=== PATIENT | male | born 1960 | race Caucasian/White ===

== ENCOUNTER → 2021-09-17 15:08 | Outpatient (BNVA) | payer OTHER, SELFPAY | PROVIDERS: PCP Internal Medicine; Visit Provider Surgery Vascular Surgery | DX: I73.9 Peripheral vascular disease, unspecified (principal); I83.12 Varicose veins of left lower extremity with inflammation; E66.01 Morbid (severe) obesity due to excess calories; Z68.37 Body mass index [BMI] 37.0-37.9, adult | CPT/HCPCS: 99202 ==

== ENCOUNTER 2021-10-09 11:56 | Outpatient (REF) | payer OTHER, SELFPAY ==
--- NOTE | ~2021-10-09 | US_ITS ---
EXAMINATION: NONINVASIVE ASSESSMENT OF THE ARTERIES OF BOTH LOWER EXTREMITIES WITH ANKLE PRESSURE MEASUREMENTS, ANKLE-BRACHIAL INDICES, PVR MEASUREMENTS AND BILATERAL LOWER EXTREMITY DUPLEX. CLINICAL INFORMATION: Peripheral vascular disease. TECHNIQUE: Ankle pressure measurements, ankle-brachial indices and PVR tracings were obtained of the lower extremity arterial system bilaterally. In addition, duplex Doppler techniques with wave form analysis and measurement of velocities in the common femoral, profunda femoral, superficial femoral, popliteal and tibial arteries was performed. The study was performed only at rest. COMPARISON: None FINDINGS: NONINVASIVE ASSESSMENT OF THE ARTERIES OF BOTH LOWER EXTREMITIES WITH ABIs: RIGHT LEG: Right ankle-brachial index: 1.02 PVR (ankle): Dampened LEFT LEG: Ankle-brachial index: 1.11 PVR (ankle): Dampened BILATERAL LOWER EXTREMITY DUPLEX ULTRASOUND: RIGHT LEG: Common femoral artery: 82.5 cm/s, Diastolic flow reversal: Yes Profunda femoris artery: 54.2 cm/s, Diastolic flow reversal: Yes Superficial femoral artery (proximal): 71.5 cm/s, Diastolic flow reversal: Yes Superficial femoral artery (mid): 80.3 cm/s, Diastolic flow reversal: Yes Superficial femoral artery (distal): 75.6 cm/s, Diastolic flow reversal: Yes Popliteal artery: 72.1 cm/s, Diastolic flow reversal: Yes Posterior tibial artery: 64.5 cm/s, Diastolic flow reversal: No LEFT LEG: Common femoral artery: 61.7 cm/s, Diastolic flow reversal: Yes Profunda femoris artery: 44.0 cm/s, Diastolic flow reversal: Yes Superficial femoral artery (proximal): 76.2 cm/s, Diastolic flow reversal: Yes Superficial femoral artery (mid): 88.0 cm/s, Diastolic flow reversal: Yes Superficial femoral artery (distal): 59.7 cm/s, Diastolic flow reversal: Yes Popliteal artery: 67.6 cm/s, Diastolic flow reversal: Yes Posterior tibial artery: 83.3 cm/s, Diastolic flow reversal: No US/US arterial duplex LE BI IMPRESSION: Right Leg: SIDNEY 1.02. No evidence of hemodynamically significant arterial disease. Left Leg: SIDNEY 1.11. No evidence of hemodynamically significant arterial disease. SIDNEY Reference: - >0.97-1.25 = normal - no significant arterial disease - 0.75-0.96 = mild peripheral arterial disease - 0.5-0.74 = moderate peripheral arterial disease - <0.50 = severe peripheral arterial disease
== END 2021-10-09 11:57 | disposition home or self-care (01) ==
LOC: HO.US 11:56
PROVIDERS: PCP Internal Medicine; Visit Provider Surgery Vascular Surgery
DX: I73.9 Peripheral vascular disease, unspecified (principal)
CPT/HCPCS: 93923; 93925

== ENCOUNTER 2021-10-15 12:34 | Outpatient (REF) | payer OTHER, SELFPAY ==
--- NOTE | ~2021-10-15 | US_ITS ---
EXAMINATION: RIGHT AND LEFT LOWER EXTREMITY VENOUS ULTRASOUND (REFLUX EXAM) CLINICAL INDICATION: Varicose veins of the left lower extremity with inflammation. COMPARISON: None. TECHNIQUE: Color flow triplex imaging and compression Doppler was performed to evaluate both the deep and the superficial systems bilaterally. To evaluate the superficial system, the examination was performed in the upright position. Color-flow Doppler ultrasound and compression ultrasound were utilized. In addition, maneuvers were utilized to demonstrate reflux. FINDINGS: 1. DEEP VENOUS ULTRASOUND OF THE RIGHT LOWER EXTREMITY: Respiratory variation, normal compression and augmented flow are noted in the right common femoral vein as well as the right popliteal vein and there is no evidence of deep venous thrombosis at these locations. There is reflux in the deep system in popliteal vein of 1.7 seconds. There is no evidence of a popliteal fossa cyst. No popliteal artery aneurysm identified. 2. SUPERFICIAL ULTRASOUND WITH DOPPLER OF RIGHT LOWER EXTREMITY: The right great saphenous vein at the saphenofemoral junction measures 9 mm, at the midthigh 5 mm, ipdfc-ryh-qcpc 7 mm, vrblr-qrq-itmg 6 mm, at midcalf 4 mm and at the ankle measures 4 mm. There is reflux present within the proximal thigh with insufficiency time of 1.6 seconds and in the mid thigh with reflux time of approximately 1.7 seconds The right small saphenous vein measures 2 mm and shows no reflux. 3. DEEP VENOUS ULTRASOUND OF THE LEFT LOWER EXTREMITY: Respiratory variation, normal compression and augmented flow are noted in the left common femoral vein as well as the left popliteal vein and there is no evidence of deep venous thrombosis at these locations. There is no evidence of reflux in the deep system in either the common femoral vein or the popliteal vein. There is no evidence of a popliteal fossa cyst or popliteal artery aneurysm. 4. SUPERFICIAL ULTRASOUND WITH DOPPLER OF LEFT LOWER EXTREMITY: Left great saphenous vein at the saphenofemoral junction measures 7 mm, at the midthigh 5 mm, psmlc-ats-mqqp 6 mm, dhyda-nab-pkgh 5 mm, at midcalf 3 mm and at the ankle measures 3 mm. There is no reflux demonstrated in the left great saphenous vein. The left small saphenous vein measures 1 mm and shows no reflux. US/US venous duplex LE BI IMPRESSION: 1. Right lower extremity popliteal vein reflux of 1.7 seconds. Otherwise no reflux seen within the deep system of either leg. 2. No evidence of saphenofemoral junction reflux in either lower extremity. 3. Reflux within the right greater saphenous vein in the proximal thigh and mid thigh up to 1.7 seconds in duration.
== END 2021-10-15 12:35 | disposition home or self-care (01) ==
LOC: HO.US 12:34
PROVIDERS: Visit Provider Surgery Vascular Surgery
DX: I83.12 Varicose veins of left lower extremity with inflammation (principal)
CPT/HCPCS: 93970

== ENCOUNTER → 2021-10-31 15:23 | Outpatient (BNVA) | payer OTHER, SELFPAY | PROVIDERS: PCP Internal Medicine; Visit Provider Surgery Vascular Surgery | DX: I83.11 Varicose veins of right lower extremity with inflammation (principal); I73.9 Peripheral vascular disease, unspecified | CPT/HCPCS: 99212 ==

== ENCOUNTER → 2021-11-08 08:13 | Outpatient (BNVA) | payer OTHER, SELFPAY | PROVIDERS: PCP Internal Medicine; Visit Provider Surgery Vascular Surgery | DX: M79.604 Pain in right leg (principal); I83.11 Varicose veins of right lower extremity with inflammation | CPT/HCPCS: 36482 ==

== ENCOUNTER 2021-11-11 15:14 | Outpatient (REF) | payer OTHER, SELFPAY ==
--- NOTE | ~2021-11-11 | US_ITS ---
EXAMINATION: US VENOUS ULTRASOUND WITH DOPPLER LOWER EXTREMITY, RIGHT CLINICAL INFORMATION: Right leg pain and swelling. Status post VenaSeal. COMPARISON: Ultrasound venous bilateral lower extremity duplex/reflux exam 10/15/2021 TECHNIQUE: Limited venous ultrasound was performed through the right lower extremity in the vicinity of the groin and proximal thigh. FINDINGS: The right common femoral vein is patent. The proximal greater saphenous vein 2.9 cm from the junction is thrombosed with no flow seen status post VenaSeal procedure. US/US venous duplex LE RT IMPRESSION: Status post VenaSeal procedure, there is thrombus in the right greater saphenous vein approximately 2.9 cm from the common femoral venous junction.
== END 2021-11-11 15:15 | disposition home or self-care (01) ==
LOC: HO.US 15:14
PROVIDERS: Visit Provider Surgery Vascular Surgery
DX: M79.604 Pain in right leg (principal)
CPT/HCPCS: 93971

== ENCOUNTER → 2021-11-21 15:38 | Outpatient (BNVA) | payer OTHER, SELFPAY | PROVIDERS: PCP Internal Medicine; Visit Provider Surgery Vascular Surgery | DX: I83.11 Varicose veins of right lower extremity with inflammation (principal) | CPT/HCPCS: 99212 ==

== ENCOUNTER 2023-12-21 14:56 | Outpatient (REF) | payer MEDICARE, SELFPAY ==
[2023-12-21 16:16] LABS: MANUAL DIFF FLAG NO
[2023-12-21 17:16] LABS: Basophils Absolute Auto 0.1 X10*3/uL (0.0-0.2); Basophils Percent Auto 0.7 % (0-2); Eosinophils Absolute Auto 0.1 X10*3/uL (0.0-0.4); Eosinophils Percent Auto 1.5 % (0-4); Hematocrit 45.3 % (42.0-52.0); Hemoglobin 15.6 g/dl (14.0-18.0); Imm Gran Abs Auto 0.02 X10*3/uL (0.00-0.03); Imm Gran Pct Auto 0.3 % (0.0-0.4); Lymphocytes Absolute Auto 3.8 X10*3/uL (1.2-4.9); Lymphocytes Percent Auto 51.1 % (20-40); Mean Corpuscular HGB Conc 34.4 g/dl (31.0-36.0); Mean Corpuscular Hemoglobin 30.4 pg (27.0-33.0); Mean Corpuscular Volume 88.3 fL (80.0-98.0); Mean Platelet Volume 10.6 fL (9.4-12.4); Monocytes Absolute Auto 0.4 X10*3/uL (0.1-1.2); Monocytes Percent Auto 4.9 % (2-11); Neutrophils Absolute Auto 3.1 x10*3/uL (2.0-8.3); Neutrophils Percent Auto 41.5 % (45-73); Platelet Count 171 X10*3/uL (160-400); Red Blood Count 5.13 X10*6/uL (4.60-5.80); Red Cell Distribution Width 12.3 % (11.0-16.0); White Blood Count 7.5 X10*3/uL (4.8-10.8)
[2023-12-21 17:40] LABS: Alanine Aminotransferase 15 U/L (0-40); Albumin Level 4.1 g/dL (3.5-5.0); Alkaline Phosphatase 83 U/L (39-117); Anion Gap 12 (12-20); Aspartate Amino Transferase 16 U/L (5-37); Bilirubin Direct 0.1 mg/dL (0.0-0.5); Bilirubin Total 0.4 mg/dL (0.0-1.0); Blood Urea Nitrogen 17 mg/dL (9-16); Calcium 9.3 mg/dL (8.4-10.2); Carbon Dioxide 27 mmol/L (22-29); Chloride 106 mmol/L (96-108); Estimated Glomerular Filt Rate > 60; Glucose Random 100 mg/dL (60-115); Potassium 4.5 mmol/L (3.3-5.1); Sodium 140 mmol/L (135-145); Total Protein 7.3 g/dL (6.5-8.0)
[2023-12-21 18:17] LABS: Appearance Urine Clear; Color Urine Yellow; Glucose Urine UA Negative (Negative); Leukocyte Esterase Urine Trace (Negative); Nitrite Urine Negative (Negative); UMIC TRIGGER UA YES; Urine Blood Negative (Negative); Urine Ketones Negative (Negative); Urine Protein Negative (Neg-Trace)
[2023-12-21 18:27] LABS: Bacteria Urine None Seen (None Seen); Hyaline Casts Urine 0-2 /LPF (0-2); RBC Urine 0-2 /HPF (0-2)
[2023-12-21 20:14] LABS: Erythrocyte Sedimentation Rate 5 MM/HR (0-15)
[2023-12-22 05:38] LABS: HBS Num1 > 1000.00 mIU/mL (0-7.99); HBc Num1 5.07 S/CO (0.00-0.79); HBsAGNum1 0.43 S/CO (0.00-0.99); HIV AB/AG Nonreactive (Nonreactive); HIV Num 1 0.05 S/CO (0.00-0.99); Hepatitis B Surface Antigen Negative (Negative); ~HepC Num1 0.17 S/CO (0.00-0.79); ~Hepatitis B Surface Antibody REACTIVE (Nonreactive); ~Hepatitis C Antibody Nonreactive (Nonreactive)
[2023-12-22 06:15] LABS: HBc Num3 4.96 S/CO; Hepatitis B Core Antibody Reactive (Nonreactive)
== END 2023-12-21 14:57 | disposition home or self-care (01) ==
LOC: HO.LAB 14:56
PROVIDERS: PCP Internal Medicine; Visit Provider Internal Medicine
DX: E11.65 Type 2 diabetes mellitus with hyperglycemia (principal); E11.69 Type 2 diabetes mellitus with other specified complication; M86.9 Osteomyelitis, unspecified
CPT/HCPCS: 36415; 80048; 80076; 81001; 85025; 85652; 86704; 86706; 86803; 87040; 87086; 87340; 87389; 99202

== ENCOUNTER 2023-12-21 14:56 | Outpatient (AMB) | payer MEDICARE, SELFPAY ==
--- NOTE | 2023-12-21 14:48 | A.OFFVIS_ITS ---
Intake Vital Signs 12/21/23 14:55 Weight 223 lb Pulse 86 Pulse Source Pulse Oximeter Temp 97.7 F Temp Source Oral Pulse Oximetry (%) 98 Intake Visit Reasons: osteomyelitis lumbar Explosive Ordnance Manager Required: Yes Explosive Ordnance Manager Name: Etienne Briggs CMA Information Interpreted: clinical only Allergies No Known Allergies Allergy (Verified 12/21/23 14:55) HPI HPI Comments History of Present Illness Details He presents as referral from [facility], Dr Piedad Crisostomo. He has persistent low back pain and has had admission to [facility] last year. He has been seen last year at [facility] and I viewed chart. He is here today with his ,Yoon. She is very knowledgable about his situation. He was hospitalized last summer at [facility]. He had BPH and had outlet procedure and vaporizing prostate with intravesical aleyda tox 03/27/[address] Davidson[address] He had low back pain then as it is chronic and dysuria. He had Seaman catheter at this time. 04/26 he grew Group B strep urine and bl ood cultures. Due to ongoing back pain he had MRI LS/thoracic paraspinal edema ,enhancement L4-L5 possible infection. 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 He uses cane now and trouble walking with dragging left leg. He has dorsal column stimulator placed 01/2020 for failed back syndrome and gets medication at [facility] Medical History Osteomyelitis Moderate episode of recurrent major depressive disorder Restless leg syndrome History of cocaine use Essential (primary) hypertension CKD (chronic kidney disease) Hx of exertional chest pain Dry eye Other hyperlipidemia Urinary incontinence Lumbar radiculopathy COPD (chronic obstructive pulmonary disease) Diabetes Elevated alanine aminotransferase (ALT) level History of hepatitis B Hepatitis B immune Obstructive sleep apnea Fibromyalgia Hepatitis A immune Cervical disc disease Metabolic syndrome Cardiovascular event risk Social History Patient Tobacco Use Status: Current everyday Tobacco user Tobacco use type: Cigarette Review of Systems Const All systems reviewed & are unremarkable except as noted in HPI and below Physical Exam Vital Signs: Last Vital Signs Temp 97.7 F 03/11/24 14:55 Pulse 86 12/21/23 14:55 Pulse Ox 98 12/21/23 14:55 Const General: cooperative Orientation/consciousness: patient oriented x3 HEENT Head: Yes normal to inspection Mouth: Normal oral and palatal mucosa present Eyes General: appearance normal, both eyes and all related structures Pupils: Equal, round and reactive pupils present Resp Effort & Inspection: normal respiratory effort Cardio Rate: regular rate Rhythm: regular rhythm GI Palpation (GI): Soft to palpation and nontender General: Yes no CVA tenderness Back/Spine/Pelvis Back: no CVA tenderness Skin General skin exam: no rashes or lesions noted Neuro General: patient oriented x3 Cranial nerves: Yes CN's II-XII intact bilaterally and Yes Equal, round and reactive pupils present Extrem Other: weakness left leg when walking,drags,uses cane Psych Appearance: grossly normal Assessment & Plan Assessment & Plan (1) Osteomyelitis: Comment: There is concern over recurrence possible Group B strep OM He has no known immunodeficiency but sometimes this can recur Code(s): M86.9 - Osteomyelitis, unspecified Plan: Would check blood culture,ESR check inflammation,CBC and urinalysis and urine cu lture. MRI of LS spine and dorsal spine with contrast if needed to evaluate for infection (MRI can sometimes look worse as bones are thin in area of old infection) Suggest Pain Clinic to remove stimulator doesnt think is working. Check immune deficiency. See in followup after. Orders: Orders Erythrocyte Sedimentation Rate Today M86.9 - Osteomyelitis, unspecified UA and rflx microscopic Today M86.9 - Osteomyelitis, unspecified Complete Blood Count Auto Diff Today M86.9 - Osteomyelitis, unspecified HIV Ab/Ag Today M86.9 - Osteomyelitis, unspecified Hepatitis C Antibody Today M86.9 - Osteomyelitis, unspecified Hepatitis B Surface Antigen Today M86.9 - Osteomyelitis, unspecified Liver Panel Today M86.9 - Osteomyelitis, unspecified MR lumbar spine wo/w con Today M86.9 - Osteomyelitis, unspecified MR thoracic spine wo/w con Today M86.9 - Osteomyelitis, unspecified Urine Culture Today M86.9 - Osteomyelitis, unspecified Blood Culture X2 Today M86.9 - Osteomyelitis, unspecified Basic Metabolic Panel Today M86.9 - Osteomyelitis, unspecified Hepatitis B Surface Antibody Today M86.9 - Osteomyelitis, unspecified Hepatitis B Core Antibody Today M86.9 - Osteomyelitis, unspecified Coding Level of Care Code New Pt Level 4 (27169) Diagnoses Osteomyelitis M86.9
[2023-12-21 14:55] VITALS: PULSE 86; TEMP 36.5; O2SAT 98
== END 2023-12-21 15:30 | disposition home or self-care (01) ==
LOC: HO.HID 14:56
PROVIDERS: PCP Internal Medicine; Visit Provider Internal Medicine
DX: M86.9 Osteomyelitis, unspecified (principal)
CPT/HCPCS: 99204

== ENCOUNTER 2024-02-18 15:58 | Outpatient (REF) | payer MEDICARE, SELFPAY ==
--- NOTE | ~2024-02-18 | MR_ITS ---
EXAMINATION: MR THORACIC SPINE WITHOUT AND WITH CONTRAST CLINICAL INFORMATION: Osteomyelitis, unspecified. COMPARISON: CT scan of the chest 12/02/2019. TECHNIQUE: MRI of the thoracic spine was obtained using routine sequences with and without contrast. Intravenous contrast: Gadavist 10 mL. Some images are degraded by patient motion artifact. 6 axial images pre and postcontrast were obtained from the level of T5-L1. FINDINGS: VERTEBRAL BODIES AND PARASPINAL STRUCTURES: The study redemonstrates a dextroscoliosis in the mid/lower thoracic spine. There is mild multilevel narrowing of intervertebral disc height with disc desiccation. There are mild degenerative endplate contour changes at multiple levels. There is minimal edematous endplate signal anteriorly at T8-T9 and T9-T10. Evaluation of the structures postcontrast is suboptimal due to severe patient motion artifact. Vertebral body heights are maintained and no fractures are demonstrated. The study redemonstrates multilevel flowing osteophytes consistent with DISH. There is nonspecific susceptibility artifact from a stimulator generator in the left paraspinal soft tissues at the level of T12, with stimulator leads extending cephalad in the dorsal spinal canal from T10-T11 to T8-T9. There is no abnormal enhancement of the osseous structures, but imaging is suboptimal due to patient motion artifact. There is a hemangioma in the body of T12. Overall, marrow signal is homogenous. The paravertebral and visualized posterior thoracic and superior retroperitoneal structures are unremarkable. The conus is at the level of L1. Accounting for artifact, spinal cord signal appears normal and there is no abnormal enhancement. SPINAL LEVELS: There is multilevel costovertebral arthropathy. There is mild spondylosis at C7-T1, incompletely visualized. More caudad, on the sagittal images there is no significant spondylosis in the upper thoracic spine, and there is no cord compression or central stenosis. T9-T10: Posterior disc contour is normal. The stimulator leads are noted dorsal to the spinal cord, but there is no cord compression or central stenosis. The neural foramina are patent bilaterally. T10-T11: There is ex moderate left and mild right facet arthropathy, and there is mild distortion of the dorsal thecal sac from stimulator leads and arthropathy. Posterior disc contour is normal and there is no central stenosis. The neural foramina are patent bilaterally. T11-T12: There is mild bilateral facet arthropathy. Disc contour is normal. There is no central stenosis or foraminal narrowing. T12-L1: There is mild bilateral facet arthropathy. Disc contour is normal. There is no central stenosis or foraminal narrowing. MR/MR thoracic spine wo/w con IMPRESSION: 1. There are no acute fractures or subluxations. There is a dextroscoliosis. 2. There are multilevel flowing osteophytes consistent with DISH. 3. The study redemonstrates a stimulator generator in the left paraspinal soft tissues at the level of T12, stimulator leads are noted in the dorsal spinal canal as described above. 4. There is no significant spondylosis, and there is no cord compression or central stenosis. 5. Postcontrast imaging is suboptimal due to patient motion artifact. There is no abnormal enhancement of the osseous structures, and there is no abnormal enhancement of the spinal cord.
[2024-02-18] MEDS: gadobutroL 10 ML VIAL IVPUSH (17:04)
== END 2024-02-18 15:59 | disposition home or self-care (01) ==
LOC: HO.MRI 15:58
PROVIDERS: PCP Internal Medicine; Visit Provider Internal Medicine
DX: M86.9 Osteomyelitis, unspecified (principal)
CPT/HCPCS: 72157; A9585

== ENCOUNTER 2024-02-24 16:02 | Outpatient (REF) | payer MEDICARE, SELFPAY ==
--- NOTE | ~2024-02-24 | MR_ITS ---
EXAMINATION: MR LUMBAR SPINE WITHOUT CONTRAST CLINICAL INFORMATION: Osteomyelitis evaluation. COMPARISON: MR thoracic spine 02/18/2024, MR lumbar spine 04/28/2017. TECHNIQUE: MRI of the lumbar spine was obtained using routine sequences without the administration of intravenous contrast. FINDINGS: This examination assumes the presence of 5 lumbar type vertebral bodies. For the purposes of this examination, the L5-S1 intervertebral disc space is visualized on axial series 6, image 23. The normal lumbar lordosis is preserved. Dextrocurvature of the lumbar spine. Trace retrolisthesis of L1-L2, L2-L3, and L5-S1. Lumbar vertebral body heights are maintained. There is prominent marrow edema along the L4 inferior endplate and L5 superior endplate extending into the left L5 pedicle. Additional edema is noted within the right L5 posterior elements. Multilevel mild degenerative endplate edema is noted. Probable intraosseous hemangioma of the T12 vertebral body. The conus medullaris and cauda equina nerve roots are unremarkable; the conus terminates at the level of L1. L1-L2: Trace disc bulge. Facet arthropathy with ligamentum flavum redundancy. Asymmetric narrowing of the left lateral recess, impinging on the descending L2 nerve root. Cghq-zj-mftvwovw spinal canal stenosis. Moderate right and wmzf-po-fecouzjs left neural foraminal stenosis. L2-L3: Disc bulge and osteophytic ridging with facet arthropathy, ligamentum flavum redundancy, and prominent epidural fat. There is gxqkpzfv-yq-iqeeps spinal canal stenosis with narrowing of the lateral recesses, significantly progressed compared to prior. Moderate right and wgyt-xf-xrecvkjj left neural foraminal stenosis. L3-L4: Disc bulge and osteophytic ridging with facet arthropathy, ligamentum flavum redundancy, and prominent epidural fat. Mild narrowing of the thecal sac. Etcw-jw-hlbrehpc narrowing of the neural foramen. L4-L5: Eccentric left disc bulge and osteophytic ridging. Facet arthropathy with ligamentum flavum redundancy. There is moderate spinal canal stenosis with asymmetric narrowing of the left lateral recess impinging upon the descending left L5 nerve root. Moderate bilateral neural foraminal stenosis with exiting nerve root impingement on the right. L5-S1: Disc bulge and osteophytic ridging with facet arthropathy and ligamentum flavum redundancy. Early tapering of the thecal sac with crowding of the cauda equina nerve roots. Prominent epidural fat/epidural lipomatosis. Severe narrowing of the bilateral neural foramen with exiting nerve root compression that is greater on the left. Susceptibility artifact along the left dorsal soft tissues related to stimulator generator. Intra-abdominal evaluation is degraded by motion. MR/MR lumbar spine wo con IMPRESSION: There is prominent marrow edema at L5-S1 with intervertebral disc space height loss and prominent anterior osteophyte formation. Finding is favored to be on the basis of degenerative change, but given concern for osteomyelitis, correlation with laboratory values is recommended. Multilevel degenerative changes of the lumbar spine are significantly progressed compared to the prior examination of 2017. There is moderate spinal canal stenosis at L4-L5 with asymmetric narrowing of the left lateral recess impinging upon the descending L5 nerve root. Nprotckf-pu-rkmfsj spinal canal stenosis at L2-L3. Multilevel neural foraminal stenoses with exiting nerve root impingement as described above, including severe, left greater the right, neural foraminal stenosis at L5-S1 with exiting nerve root compression. Prominent epidural fat/epidural lipomatosis at L5-S1 with tapering of the thecal sac and crowding of the cauda equina nerve roots.
== END 2024-02-24 16:03 | disposition home or self-care (01) ==
LOC: HO.MRI 16:02
PROVIDERS: PCP Internal Medicine; Visit Provider Internal Medicine
DX: M86.9 Osteomyelitis, unspecified (principal)
CPT/HCPCS: 72148

== ENCOUNTER 2024-06-14 13:59 | Outpatient (AMB) | payer MEDICARE, SELFPAY ==
--- NOTE | 2024-06-14 14:00 | MHC.OFFVIS ---
Vital Signs 06/14/24 14:05 Height 5 ft 6 in Weight 225 lb BMI 36.3 BP 142/78 H Blood Pressure Location Rt brachial Position Sitting Pulse 95 Pulse Source Pulse Oximeter Pulse Oximetry (%) 97 Oxygen Delivery Method Room Air Intake Visit Reasons: Lumbar Radiculopathy Intake Note: Pain today 10/10 Infectious Waste Technician Required: No Accompanied by: Self / Same As Patient Allergies No Known Allergies Allergy (Verified 06/14/24 14:05) HPI HPI Lumbar Radiculopathy: Details: Patient is a pleasant 64-year-old male with history of lumbar degenerative disc disease, lumbar spinal stenosis, cervical disc disorder, recent Group B strep osteomyelitis, recent ischemic stroke without hemorrhage with residual right-sided weakness, fibromyalgia, history of cocaine use, lumbar radiculopathy, restless legs syndrome, diabetes, RADHA, [employer] spinal cord stimulator at T12 [place]ites[place] [facility] [place] today for initial evaluation of worsening low back pain with left-sided radiculopathy. Patient arrived through motorized scooter and uses cane to transfer to the chair. He is able to ambulate with a slow, antalgic and limping gait. Patient reports he has not used or charged his SCS device until yesterday. He reports it is working but not providing him significant pain relief for low back and left leg pain. Patient denies reaching out to [employer] representative to check on his device. Patient was seen by Dr. Kearney, [place] once in December this year for osteomyelitis without follow up. Pain is constant, worse during the day and is rated at 10/10. Back pain is localized to his left side of lower lumbar spine with radiation into his left buttock and left groin and into his left lower extremity posteriorly with associated heaviness, numbness, burning and tingling. Pain affects his ADLs, mobility, mood, sleep, and social interactions. Patient was started on oxycodone by his PCP for chronic low back pain. Patient reports he tried gabapentin in the past with minimal effect. He recently completed [place] [facility] in April where he progressed with PT, OT and speech therapy s/p stroke and has regular follow ups with Neurology, Cardiology and PCP. He takes Plavix and aspirin. Patient reports he is considering to remove spinal cord stimulator but has not reached out to Dr. Benites as of yet. He reports he was offered back surgery in the past few years but declined it. Patient reports his back pain has been progressively worsening and debilitating that he is now considering surgical option. Patient is willing to follow-up with [employer] rep in our office to interrogate his device and reprogrammed it. Patient denies any fever or chills, abdominal pain, dyspnea, chest pain, bowel dysfunction or saddle anesthesia. Patient reports occasional urinary incontinence and is wearing depends. Most recent spine MRI imaging was reviewed with patient today and is noted below. Location: Lower back radiates down left buttock, groin and left lower extremity Duration: Chronic pain for over 5 years Characteristics of symptom or complaint: Aching, sharp, shooting, burning, stabbing, numbness, tingling Aggravating or associated factors: Any movement, walking, bending forward Relieving factors: Resting, oxycodone, heat, topical applications Treatment: [employer] lumbar SCS, physical therapy, motorized scooter/cane [facility] Medical History (Updated 06/14/24 @ 14:31 by TATE Benz) Heart failure Ischemic stroke Balanitis Osteomyelitis Moderate episode of recurrent major depressive disorder Restless leg syndrome History of cocaine use Essential (primary) hypertension CKD (chronic kidney disease) Hx of exertional chest pain Dry eye Other hyperlipidemia Urinary incontinence Lumbar radiculopathy COPD (chronic obstructive pulmonary disease) Diabetes Elevated alanine aminotransferase (ALT) level History of hepatitis B Hepatitis B immune Obstructive sleep apnea Fibromyalgia Hepatitis A immune Cervical disc disease Metabolic syndrome Cardiovascular event risk Social History (Updated 06/14/24 @ 14:07 by Shanika Escamilla) Alcohol intake: current Alcohol intake frequency: holidays/special occasions only Alcohol type: hard liquor Patient Tobacco Use Status: Current everyday Tobacco user Tobacco use type: Cigarette Cigarettes Per Day: 2 Review of Systems Const All systems reviewed & are unremarkable except as noted in HPI and below Physical Exam Vital Signs: Last Vital Signs Pulse 95 06/14/24 14:05 BP 142/78 H 06/14/24 14:05 Pulse Ox 97 06/14/24 14:05 Oxygen Delivery Method Room Air 06/14/24 14:05 BMI result Body Mass Index 36.3 General: Appears afebrile. Alert and oriented. Mood and affect appropriate. Follows and participates in conversation appropriately. Respiratory effort is unlabored. No cough. Able to transition from sit to stand with assistance of cane. Right sided upper and lower extremity weakness r/t recent CVA. Transfers by motorized scooter. General: Yes no CVA tenderness Back/Spine/Pelvis Other: Unable to perform lumbar ROM due to pain. No midline tenderness in the thoracolumbar spine. Back: no CVA tenderness Cervical Spine: cervical muscular tenderness, pain with cervical ROM and No Cervical spine tenderness Thoracic/Lumbar Spine: thoracic and lumbar spine normal to inspection, Thoracic/lumbar spine scar(s), Lasegue's sign positive on the left and localized, pain with thoraco-lumbar ROM, paraspinal muscle tenderness, thoraco-lumbar ROM limited, No thoracic spinal tenderness and lumbar spinal tenderness (L4-S1) Pelvis: buttock tenderness on the left Sacroiliac joints: bilaterally (left>right) Results Reviewed Results Reviewed: MR THORACIC SPINE WITHOUT AND WITH CONTRAST 02/18/24 CLINICAL INFORMATION: Osteomyelitis, unspecified. COMPARISON: CT scan of the chest 12/02/2019. TECHNIQUE: MRI of the thoracic spine was obtained using routine sequences with and without contrast. Intravenous contrast: Gadavist 10 mL. Some images are degraded by patient motion artifact. 6 axial images pre and postcontrast were obtained from the level of T5-L1. FINDINGS: VERTEBRAL BODIES AND PARASPINAL STRUCTURES: The study redemonstrates a dextroscoliosis in the mid/lower thoracic spine. There is mild multilevel narrowing of intervertebral disc height with disc desiccation. There are mild degenerative endplate contour changes at multiple levels. There is minimal edematous endplate signal anteriorly at T8-T9 and T9-T10. Evaluation of the structures postcontrast is suboptimal due to severe patient motion artifact. Vertebral body heights are maintained and no fractures are demonstrated. The study redemonstrates multilevel flowing osteophytes consistent with DISH. There is nonspecific susceptibility artifact from a stimulator generator in the left paraspinal soft tissues at the level of T12, with stimulator leads extending cephalad in the dorsal spinal canal from T10-T11 to T8-T9. There is no abnormal enhancement of the osseous structures, but imaging is suboptimal due to patient motion artifact. There is a hemangioma in the body of T12. Overall, marrow signal is homogenous. The paravertebral and visualized posterior thoracic and superior retroperitoneal structures are unremarkable. The conus is at the level of L1. Accounting for artifact, spinal cord signal appears normal and there is no abnormal enhancement. SPINAL LEVELS: There is multilevel costovertebral arthropathy. There is mild spondylosis at C7-T1, incompletely visualized. More caudad, on the sagittal images there is no significant spondylosis in the upper thoracic spine, and there is no cord compression or central stenosis. T9-T10: Posterior disc contour is normal. The stimulator leads are noted dorsal to the spinal cord, but there is no cord compression or central stenosis. The neural foramina are patent bilaterally. T10-T11: There is ex moderate left and mild right facet arthropathy, and there is mild distortion of the dorsal thecal sac from stimulator leads and arthropathy. Posterior disc contour is normal and there is no central stenosis. The neural foramina are patent bilaterally. T11-T12: There is mild bilateral facet arthropathy. Disc contour is normal. There is no central stenosis or foraminal narrowing. T12-L1: There is mild bilateral facet arthropathy. Disc contour is normal. There is no central stenosis or foraminal narrowing. IMPRESSION: 1. There are no acute fractures or subluxations. There is a dextroscoliosis. 2. There are multilevel flowing osteophytes consistent with DISH. 3. The study redemonstrates a stimulator generator in the left paraspinal soft tissues at the level of T12, stimulator leads are noted in the dorsal spinal canal as described above. 4. There is no significant spondylosis, and there is no cord compression or central stenosis. 5. Postcontrast imaging is suboptimal due to patient motion artifact. There is no abnormal enhancement of the osseous structures, and there is no abnormal enhancement of the spinal cord. MR LUMBAR SPINE WITHOUT CONTRAST 02/24/24 CLINICAL INFORMATION: Osteomyelitis evaluation. COMPARISON: MR thoracic spine 02/18/2024, MR lumbar spine 04/28/2017. FINDINGS: This examination assumes the presence of 5 lumbar type vertebral bodies. For the purposes of this examination, the L5-S1 intervertebral disc space is visualized on axial series 6, image 23. The normal lumbar lordosis is preserved. Dextrocurvature of the lumbar spine. Trace retrolisthesis of L1-L2, L2-L3, and L5-S1. Lumbar vertebral body heights are maintained. There is prominent marrow edema along the L4 inferior endplate and L5 superior endplate extending into the left L5 pedicle. Additional edema is noted within the right L5 posterior elements. Multilevel mild degenerative endplate edema is noted. Probable intraosseous hemangioma of the T12 vertebral body. The conus medullaris and cauda equina nerve roots are unremarkable; the conus terminates at the level of L1. L1-L2: Trace disc bulge. Facet arthropathy with ligamentum flavum redundancy. Asymmetric narrowing of the left lateral recess, impinging on the descending L2 nerve root. Lggw-nk-nhuxphkn spinal canal stenosis. Moderate right and bnec-nw-cfznhrtv left neural foraminal stenosis. L2-L3: Disc bulge and osteophytic ridging with facet arthropathy, ligamentum flavum redundancy, and prominent epidural fat. There is jukfhskn-cq-ijnnjm spinal canal stenosis with narrowing of the lateral recesses, significantly progressed compared to prior. Moderate right and ktwx-rx-iqrqtzpk left neural foraminal stenosis. L3-L4: Disc bulge and osteophytic ridging with facet arthropathy, ligamentum flavum redundancy, and prominent epidural fat. Mild narrowing of the thecal sac. Odcn-ot-opytpoff narrowing of the neural foramen. L4-L5: Eccentric left disc bulge and osteophytic ridging. Facet arthropathy with ligamentum flavum redundancy. There is moderate spinal canal stenosis with asymmetric narrowing of the left lateral recess impinging upon the descending left L5 nerve root. Moderate bilateral neural foraminal stenosis with exiting nerve root impingement on the right. L5-S1: Disc bulge and osteophytic ridging with facet arthropathy and ligamentum flavum redundancy. Early tapering of the thecal sac with crowding of the cauda equina nerve roots. Prominent epidural fat/epidural lipomatosis. Severe narrowing of the bilateral neural foramen with exiting nerve root compression that is greater on the left. Susceptibility artifact along the left dorsal soft tissues related to stimulator generator. Intra-abdominal evaluation is degraded by motion. IMPRESSION: There is prominent marrow edema at L5-S1 with intervertebral disc space height loss and prominent anterior osteophyte formation. Finding is favored to be on the basis of degenerative change, but given concern for osteomyelitis, correlation with laboratory values is recommended. Multilevel degenerative changes of the lumbar spine are significantly progressed compared to the prior examination of 2017. There is moderate spinal canal stenosis at L4-L5 with asymmetric narrowing of the left lateral recess impinging upon the descending L5 nerve root. Hpeenkys-mu-btxhyn spinal canal stenosis at L2-L3. Multilevel neural foraminal stenoses with exiting nerve root impingement as described above, including severe, left greater the right, neural foraminal stenosis at L5-S1 with exiting nerve root compression. Prominent epidural fat/epidural lipomatosis at L5-S1 with tapering of the thecal sac and crowding of the cauda equina nerve roots. Assessment & Plan Assessment & Plan (1) Osteomyelitis: Comment: There is concern over recurrence possible Group B strep OM He has no known immunodeficiency but sometimes this can recur Code(s): M86.9 - Osteomyelitis, unspecified Category: Medical (2) Degeneration of intervertebral disc of lumbar region: Code(s): M51.36 - Other intervertebral disc degeneration, lumbar region (3) Low back pain radiating to left lower extremity: Code(s): M54.50 - Low back pain, unspecified; M79.605 - Pain in left leg (4) Stenosis of lumbosacral spine: Code(s): M48.07 - Spinal stenosis, lumbosacral region (5) Lumbosacral spondylosis: Code(s): M47.817 - Spondylosis without myelopathy or radiculopathy, lumbosacral region Category: Medical (6) Spinal cord stimulator dysfunction: Code(s): T85.192A - Other mechanical complication of implanted electronic neurostimulator of spinal cord electrode (lead), initial encounter Category: Medical Plan Thoracic and lumbar xrays to rule out SCS lead migration. Chanel Miranda was contacted today and will follow up with patient next week in the office to check and potentially reprogram SCS device. Patient has not used device for past 2 months due to recent ischemic stroke. Reports he charged SCS device yesterday and able to obtain partial low back pain coverage but not left leg pain. Lumbar spine MRI to follow up on previous MRI findings, including osteomyelitis and significant spinal stenosis with lumbar DDD. Patient reports he was offered back surgery past few years which he declined. Given significant worsening of low back and left leg pain, he is considering re-evaluation for surgical option as well as potential SCS removal. We will send medical release requests to [facility] and [facility] [place] [facility] for previous procedures, imaging and injections. Script provided for pregabalin. Side effects and precautions were discussed with patient. He is also prescribed by his PCP oxycodone 5 mg b.i.d. p.r.n. pain. All questions and concerns have been answered and patient agreed with the treatment plan. Follow-up for imaging results and sooner as needed. Orders: Orders XR lumbar spine 2-3V 06/14/24 T85.192A - Other mechanical complication of implanted electronic neurostimulator of spinal cord electrode (lead), initial encounter XR thoracic spine 3V 06/14/24 T85.192A - Other mechanical complication of implanted electronic neurostimulator of spinal cord electrode (lead), initial encounter MR lumbar spine wo/w con 06/14/24 M48.07 - Spinal stenosis, lumbosacral region, M51.36 - Other intervertebral disc degeneration, lumbar region, M54.50 - Low back pain, unspecified, M79.605 - Pain in left leg, M86.9 - Osteomyelitis, unspecified Medications: New lidocaine 5% leave on most painful area for up to 12 hrs topically daily; 30 ea 0RF 30 days M47.817 - Spondylosis without myelopathy or radiculopathy, lumbosacral region, M48.07 - Spinal stenosis, lumbosacral region, M51.36 - Other intervertebral disc degeneration, lumbar region, M54.50 - Low back pain, unspecified, M79.605 - Pain in left leg pregabalin 50 mg PO BID 60 caps 0RF pain 30 days M48.07 - Spinal stenosis, lumbosacral region, M51.36 - Other intervertebral disc degeneration, lumbar region, M54.50 - Low back pain, unspecified, M79.605 - Pain in left leg Coding Level of Care Code New Pt Level 4 (79064) Diagnoses Osteomyelitis M86.9 Degeneration of intervertebral disc of lumbar region M51.36 Low back pain radiating to left lower extremity M54.50; M79.605 Stenosis of lumbosacral spine M48.07 Lumbosacral spondylosis M47.817 Spinal cord stimulator dysfunction T85.192A
[2024-06-14 14:05] VITALS: BP 142/78; PULSE 95; O2SAT 97; BMI 36.3
== END 2024-06-14 14:34 | disposition home or self-care (01) ==
PROVIDERS: PCP Internal Medicine; Visit Provider Nurse Practitioner Family
DX: M86.9 Osteomyelitis, unspecified (principal); M51.36 Other intervertebral disc degeneration, lumbar region; M54.50 Low back pain, unspecified; M79.605 Pain in left leg; M48.07 Spinal stenosis, lumbosacral region; M47.817 Spondylosis without myelopathy or radiculopathy, lumbosacral region; T85.192A Other mechanical complication of implanted electronic neurostimulator of spinal cord electrode (lead), initial encounter
CPT/HCPCS: 99204

== ENCOUNTER → 2024-06-14 13:59 | Outpatient (BNVA) | payer MEDICARE, SELFPAY | PROVIDERS: PCP Internal Medicine; Visit Provider Nurse Practitioner Family | DX: M86.9 Osteomyelitis, unspecified (principal); M51.36 Other intervertebral disc degeneration, lumbar region; M54.50 Low back pain, unspecified; M79.605 Pain in left leg; M48.07 Spinal stenosis, lumbosacral region; M47.817 Spondylosis without myelopathy or radiculopathy, lumbosacral region; T85.192A Other mechanical complication of implanted electronic neurostimulator of spinal cord electrode (lead), initial encounter | CPT/HCPCS: 99202 ==

== ENCOUNTER → 2024-06-22 11:09 | Outpatient (BNVA) | payer MEDICARE, SELFPAY | PROVIDERS: PCP Internal Medicine; Visit Provider Nurse Practitioner Family ==

== ENCOUNTER 2024-07-19 13:54 | Outpatient (REF) | payer MEDICARE, SELFPAY ==
--- NOTE | ~2024-07-19 | MR_ITS ---
EXAMINATION: MR LUMBAR SPINE WITHOUT AND WITH CONTRAST CLINICAL INFORMATION: Osteomyelitis, unspecified. COMPARISON: MRI of lumbar spine dated February 24, 2024 TECHNIQUE: MRI of the lumbar spine was obtained using routine sequences with and without contrast. Intravenous contrast: 10 mL gadolinium (Gadavist) without reported immediate complications FINDINGS: Exam submitted for interpretation on 08/10/2024. Last rib-bearing vertebra labeled T12. There is an heterogeneous irregularly-shaped, mixed hypointense T1 and slightly hyperintense T2 STIR heterogeneously enhancing signal abnormality involving the inferior endplate of L4, superior endplate of L5 and to a lesser extent the anterior intervertebral discs, L4-5. There is no heterogeneous enhancing signal abnormality within the epidural/subdural compartment of the central spinal canal at L4-5. There is circumferential prominent epidural fat at L5-S1 and sacrum resulting in decreased AP diameter of the thecal sac. There is no gross leptomeningeal enhancement. Multilevel marginal osteophyte formation and disc desiccation. Subtle grade 1 retrolisthesis L1 to, L2-3 and L5-S1. Reverse curvature apex at L2. Conus medullaris ends at superior endplate of L1 with normal signal. Paramagnetic field distortion secondary to metallic hardware and posterior soft tissues of the lower thoracic and upper lumbar region at the T12 level likely related to intraspinal canal neural stimulator device. T12-L1: No compression upon neural elements. L1-2: No disc is bulging. Facet joint hypertrophy. Bilateral neuroforamina narrowing. No compression upon neural elements. L2-3: Broad-based disc bulging. Facet joint hypertrophy. No central spinal canal stenosis. Bilateral neuroforamina narrowing. L3-4: Broad-based disc bulging. Facet joint and ligamentum flavum hypertrophy. Reduced AP diameter of the thecal sac. Bilateral neuroforamina narrowing. L4-5: Prominent epidural fat. Broad-based disc bulging. Facet joint and ligamentum flavum hypertrophy. Reduced AP diameter of the thecal sac. Bilateral neuroforamina narrowing. L5-S1: Prominent epidural fat in a circumferential fashion reducing the AP diameter of the thecal sac. Facet joint hypertrophy. Bilateral neuroforamina stenosis encroaching likely compressing the exiting nerve roots. MR/MR lumbar spine wo/w con IMPRESSION: Concerning discitis/ osteomyelitis with phlegmon/abscess in the right anterior lateral prevertebral compartment, L4-5. No epidural abscess. Epidural lipomatosis, L4-5 and L5-S1. Multilevel spondylosis encroaching the exiting nerve roots of L5, S1 and to a lesser extent L4. Electronically signed by: Kei Cagle MD 08/10/2024 08:02 AM EDT
[2024-07-19] MEDS: gadobutroL 10 ML VIAL IVPUSH (14:50)
== END 2024-07-19 13:55 | disposition home or self-care (01) ==
LOC: HO.MRI 13:54
PROVIDERS: PCP Internal Medicine; Visit Provider Nurse Practitioner Family
DX: M54.50 Low back pain, unspecified (principal); M79.605 Pain in left leg; M48.07 Spinal stenosis, lumbosacral region; M86.9 Osteomyelitis, unspecified; M51.369 Other intervertebral disc degeneration, lumbar region without mention of lumbar back pain or lower extremity pain
CPT/HCPCS: 72158; A9585

== ENCOUNTER → 2024-07-19 13:57 | Outpatient (BNV) | payer MEDICARE, SELFPAY | PROVIDERS: PCP Internal Medicine; Visit Provider Radiology Diagnostic Radiology | DX: M48.07 Spinal stenosis, lumbosacral region (principal) | CPT/HCPCS: 72158 ==

== ENCOUNTER 2024-07-27 12:56 | Outpatient (AMB) | payer MEDICARE, SELFPAY ==
--- NOTE | 2024-07-27 13:25 | MHC.OFFVIS ---
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: No Accompanied by: Self / Same As Patient Allergies No Known Allergies Allergy (Verified 06/14/24 14:05) Medication List - Last Reconciled 07/27/24 by Papa Ricketts MD aspirin (Adult Aspirin Regimen) 81 mg PO DAILY atorvastatin 80 mg PO DAILY clopidogrel 75 mg PO DAILY dapagliflozin propanediol (Farxiga) 10 mg PO DAILY docusate sodium 100 mg PO BID famotidine 20 mg PO BID fluticasone propionate 50 mcg/actuation 1 spray intranasal BID lidocaine 5% leave on most painful area for up to 12 hrs topically daily; 30 days metformin 500 mg PO BID naloxone 4 mg/actuation intranasal PRN oxycodone 5 mg PO Q12H PRN pregabalin 50 mg PO BID 30 days ropinirole 2 mg PO BID sennosides (senna) 17.2 mg PO BEDTIME tadalafil 20 mg PO tamsulosin 0.4 mg PO DAILY HPI Comments Details: Javier is here for consultation regarding stroke/congestive heart failure. PCP records were reviewed. However we do not have the actual records from hospitalization. It seems that he had sudden onset of right sided weakness and MRI had apparently showed MCA/BENJI watershed infarct. Echocardiogram had shown LVEF of 40-50%. Then it seems he was put on dual antiplatelet therapy. Any case, he has been referred here for further evaluation. Patient himself denies any prior issues like coronary disease or myocardial infarction or cardiomyopathy or in fact any other cardiac concerns. His main complaint is the right-sided weakness. No cardiac symptoms like chest pains. [facility] Medical History (Updated 07/27/24 @ 14:03 by Papa Ricketts MD) Heart failure Ischemic stroke Balanitis Osteomyelitis Moderate episode of recurrent major depressive disorder Restless leg syndrome History of cocaine use Essential (primary) hypertension CKD (chronic kidney disease) Hx of exertional chest pain Dry eye Other hyperlipidemia Urinary incontinence Lumbar radiculopathy COPD (chronic obstructive pulmonary disease) Diabetes Elevated alanine aminotransferase (ALT) level History of hepatitis B Hepatitis B immune Obstructive sleep apnea Fibromyalgia Hepatitis A immune Cervical disc disease Metabolic syndrome Cardiovascular event risk Surgical History (Updated 07/27/24 @ 13:31 by Ami Perez CMA) Status post insertion of spinal cord stimulator Family History (Updated 07/27/24 @ 13:34 by Ami Perez CMA) Father Prostate cancer Heart problem Mother Heart attack DM2 (diabetes mellitus, type 2) Sister Stomach cancer Brother Alzheimer disease Social History (Updated 07/27/24 @ 13:34 by Ami Perez CMA) Alcohol intake: current Alcohol intake frequency: does not drink Alcohol type: hard liquor Patient Tobacco Use Status: Current everyday Tobacco user Tobacco use type: Cigarette Cigarettes Per Day: 2 Review of Systems Const Denies chills, Denies daytime sleepiness, Denies fatigue, Denies fever(s), Denies poor appetite, Denies snoring, Denies stops breathing during sleep, Denies weakness, Denies weight gain and Denies weight loss Eyes Denies loss of vision ENT Denies dizziness and Denies hearing loss Card Denies chest pain, Denies irregular heart rhythm, Denies claudication, Denies leg edema, Denies lightheadedness, Denies palpitations, Reports dyspnea on exertion and Denies orthopnea Resp Denies cough, Denies excessive phlegm production, Reports dyspnea on exertion, Denies snoring and Denies wheezing GI Denies abdominal pain, Denies hematochezia, Denies change in bowel habits, Denies nausea and Denies vomiting Denies dysuria and Denies urinary frequency Musc Denies arthralgias, Denies muscle weakness, Denies numbness and Denies other Skin/Breast Denies nail changes and Denies rash Neuro Denies Abnormal speech present, Denies dizziness, Denies loss of vision, Denies memory loss, Denies numbness and Denies weakness Psych Denies depression and Denies memory loss Endo Denies fatigue and Denies palpitations Krishna/Lymph Denies easy bruising Aller/Immun Denies wheezing Physical Exam Vital Signs: Last Vital Signs Pulse 83 07/27/24 13:26 BP 124/70 07/27/24 13:26 Const Other: In wheelchair General: comfortable and no acute distress Orientation/consciousness: patient oriented x3 HEENT Other: Unremarkable Head: Yes normal to inspection Neck Neck: Yes normal visual inspection Chest Chest palpation & inspection: normal inspection of the chest Resp Auscultation: clear to auscultation bilaterally Cardio Palpation: normal PMI Heart sounds: S1 normal heart sound present, S2 normal heart sound present, no gallops, no murmurs and no rubs GI Palpation (GI): Soft to palpation Back/Spine/Pelvis Other: unremarkable Skin General skin exam: no rashes or lesions noted Neuro General: patient oriented x3 Speech: No Abnormal speech present Extrem General: Yes normal to inspection Psych Mental Status: mental status grossly normal Office Procedures EKG Details: EKG with underlying sinus rhythm at 83/Min; can not exclude old septal infarct; mild ST depressions/T inversion in lead 1/[place]VL[place] [id number], Complete Assessment & Plan Assessment & Plan (1) Cardiomyopathy: Code(s): I42.9 - Cardiomyopathy, unspecified Category: Medical Plan: Per PCP note, LVEF was 40-50% on the echocardiogram at [place]. Will need to get that report. We will recheck. Clinically, no heart failure symptoms or signs. If indeed it is diminished, we will need ischemic evaluation with stress testing. If we cannot do stress testing, can also consider coronary CTA. (2) Ischemic stroke: Code(s): I63.9 - Cerebral infarction, unspecified Category: Medical Plan: We will request records to decide if it is ischemic stroke or cardioembolic. He remains on reasonable therapy at this time including aspirin, Plavix as well as high-dose statins. Orders: Orders CA echo transthoracic complete Today I42.9 - Cardiomyopathy, unspecified Coding Level of Care Code New Pt Level 4 (68593) Diagnoses Cardiomyopathy I42.9 Ischemic stroke I63.9 CPT Codes EKG - CPT: 36775-[id number], Complete ([id number])
[2024-07-27 13:26] VITALS: BP 124/70; PULSE 83
== END 2024-07-27 14:00 | disposition home or self-care (01) ==
PROVIDERS: PCP Internal Medicine; Visit Provider Internal Medicine
DX: I42.9 Cardiomyopathy, unspecified (principal); I63.9 Cerebral infarction, unspecified
CPT/HCPCS: 93010; 99204

== ENCOUNTER → 2024-07-27 12:56 | Outpatient (BNVA) | payer MEDICARE, SELFPAY | PROVIDERS: PCP Internal Medicine; Visit Provider Internal Medicine | DX: I50.9 Heart failure, unspecified (principal); I42.9 Cardiomyopathy, unspecified; Z86.73 Personal history of transient ischemic attack (TIA), and cerebral infarction without residual deficits | CPT/HCPCS: 93005; 99202 ==

== ENCOUNTER 2024-08-08 14:32 | Outpatient (REF) | payer MEDICARE, SELFPAY ==
--- NOTE | ~2024-08-08 | XR_ITS ---
RADIOGRAPH THORACIC AND LUMBAR SPINE CLINICAL HISTORY: Implanted neurostimulator device. COMPARISON: MRI lumbar spine 07/19/2024. TECHNIQUE: 3 views of the thoracic spine and 3 views of the lumbar spine. FINDINGS: Neurostimulator device leads looped upon itself at the level of T12-L1 and terminate overlying the lower thoracic spine at the level of T9-T10. Findings concerning for discitis/osteomyelitis at the level of L4-L5 are better visualized on recent MRI. No evidence of acute compression deformity or subluxation. Mild rightward curvature of the thoracic spine and leftward curvature of the lumbar spine. Moderate multilevel thoracolumbar degenerative changes with intervertebral disc height loss, marginal osteophytes and facet arthropathy leading to various degrees of neural foraminal osseous encroachment and central canal stenosis. Large multilevel anterior marginal osteophytes suggesting diffuse idiopathic skeletal hyperostosis. Soft tissue paraspinal abnormalities at the level of L4-L5 are better visualized on recent MRI. XR/XR thoracic spine 3V IMPRESSION: 1. Neurostimulator device leads looped upon itself at the level of T12-L1 and terminate overlying the lower thoracic spine at the level of T9-T10. 2. Findings concerning for discitis/osteomyelitis at the level of L4-L5 are better visualized on recent MRI. 3. No evidence of acute compression deformity or subluxation. 4. Moderate multilevel thoracolumbar spondylosis with various degrees of neural foraminal encroachment and central canal stenosis. Electronically signed by: Kaylie De La Cruz MD 08/16/2024 06:14 PM [facility]
--- NOTE | ~2024-08-08 | XR_ITS ---
RADIOGRAPH THORACIC AND LUMBAR SPINE CLINICAL HISTORY: Implanted neurostimulator device. COMPARISON: MRI lumbar spine 07/19/2024. TECHNIQUE: 3 views of the thoracic spine and 3 views of the lumbar spine. FINDINGS: Neurostimulator device leads looped upon itself at the level of T12-L1 and terminate overlying the lower thoracic spine at the level of T9-T10. Findings concerning for discitis/osteomyelitis at the level of L4-L5 are better visualized on recent MRI. No evidence of acute compression deformity or subluxation. Mild rightward curvature of the thoracic spine and leftward curvature of the lumbar spine. Moderate multilevel thoracolumbar degenerative changes with intervertebral disc height loss, marginal osteophytes and facet arthropathy leading to various degrees of neural foraminal osseous encroachment and central canal stenosis. Large multilevel anterior marginal osteophytes suggesting diffuse idiopathic skeletal hyperostosis. Soft tissue paraspinal abnormalities at the level of L4-L5 are better visualized on recent MRI. XR/XR lumbar spine 2-3V IMPRESSION: 1. Neurostimulator device leads looped upon itself at the level of T12-L1 and terminate overlying the lower thoracic spine at the level of T9-T10. 2. Findings concerning for discitis/osteomyelitis at the level of L4-L5 are better visualized on recent MRI. 3. No evidence of acute compression deformity or subluxation. 4. Moderate multilevel thoracolumbar spondylosis with various degrees of neural foraminal encroachment and central canal stenosis. Electronically signed by: Kaylie De La Cruz MD 08/16/2024 06:14 PM [facility]
[2024-08-08 15:58] LABS: Cholesterol 84 mg/dL (<200); HDL Cholesterol 34 mg/dL (>40); LDL Cholesterol Calculated 29 mg/dL (<100); Triglycerides 106 mg/dL (<150)
== END 2024-08-08 14:33 | disposition home or self-care (01) ==
LOC: HO.XRAY 14:32
PROVIDERS: Absent Provider Internal Medicine; PCP Internal Medicine; Visit Provider Nurse Practitioner Family
DX: T85.192A Other mechanical complication of implanted electronic neurostimulator of spinal cord electrode (lead), initial encounter (principal); M47.815 Spondylosis without myelopathy or radiculopathy, thoracolumbar region; E11.65 Type 2 diabetes mellitus with hyperglycemia
CPT/HCPCS: 36415; 72072; 72100; 80061

== ENCOUNTER 2024-08-16 16:53 | Inpatient (IN) | payer MEDICARE, SELFPAY ==
--- NOTE | ~2024-08-16 | MR_ITS ---
EXAMINATION: MR LUMBAR SPINE WITHOUT AND WITH CONTRAST CLINICAL INFORMATION: Osteomyelitis/discitis. COMPARISON: MRI dated July 19, 2024 and February 24, 2024. Correlated to CT dated August 17, 2024. TECHNIQUE: MRI of the lumbar spine was obtained using routine sequences with and without contrast. Intravenous contrast: Gadavist 10 mL without reported immediate complications FINDINGS: Last rib-bearing vertebra labeled T12. Hyperintense T2 STIR bone marrow signal involving the inferior endplate of L4 and superior endplate of L5 and to a lesser extent the intervertebral disc L4-5 and the anterior right lateral prevertebral compartment. There is associated heterogeneous enhancement within the endplates of L4 and L5 and the intervertebral disc and anterior right lateral prevertebral compartment at L4-5. There is no extension into the epidural compartment of the central spinal canal. There is no abnormal enhancement within the leptomeningeal compartment. MR/MR lumbar spine wo/w con IMPRESSION: Overall improved without overt abscess in the prevertebral compartment. Electronically signed by: Kei Cagle MD 08/19/2024 07:38 AM [facility]
--- NOTE | ~2024-08-16 | CT_ITS ---
EXAMINATION: CT LUMBAR SPINE WITH IV CONTRAST CLINICAL INFORMATION: Follow up abnormal MRI lumbar spine with questionable discitis at the level of L4-5 and degenerative changes at the level of L5-S1 following uneventful administration of 85 cc of Omnipaque 350 COMPARISON: Radiograph from July 31, 2024 and MRI from July 19, 2024 and February 24, 2024 TECHNIQUE: Axial CT of lumbar spine with coronal and sagittal reconstruction . This CT examination was performed using dose optimization techniques as appropriate, variously including the following: *Automated exposure control *Adjustment of mA and/or kV according to patient size (this includes techniques or standardized protocols for targeted exams where dose is matched to indication/reason for exam; i.e. extremities or head) *Use of iterative reconstruction technique DLP: 812 mGy-cm FINDINGS: Vertebral bodies of lumbar spine are well aligned except of narrowing and irregular subchondral cysts formation and subchondral sclerosis at the level of L4-5 with marginal osteophyte formation. In the degenerative changes with wall: Phenomenon at the level of L5-S1. No evidence of disc protrusion or fluid collection. Visualized retroperitoneal organs revealed no lymphadenopathy, masses, fluid collection. Visualized liver, gallbladder, pancreas, spleen, adrenal glands and kidneys are normal. Abdominal aorta is not dilated. Visualized loops of bowel are normal. Partially distended urinary bladder is visualized. CT/CT lumbar spine w IV con IMPRESSION: Extensive degenerative changes with subchondral erosions at the level of L5-S1, correlate with clinical history and MRI. Degenerative changes at the level of L5-S1. No evidence of abscess formations. Electronically signed by: Danielle Mendoza MD 08/18/2024 11:14 AM [facility]
--- NOTE | 2024-08-16 17:15 | ED_ITS ---
HPI - General Adult General Chief complaint: Recheck/Abnormal Lab/Rx Stated complaint: Back pain Time Seen by Provider: 08/16/24 17:45 Source: patient Limitations: no limitations History of Present Illness ED Provider: Shira Flowers PA-C HPI narrative: 64-year-old male with a history of known degenerative changes of the lumbar spine now status post spinal stimulator, prior osteomyelitis of thoracic spine, fibromyalgia, Hypertension, hyperlipidemia, diabetes, heart failure with the EF of 40-50% ECHO 2023, prior CVA with right-sided residual weakness with subsequent gait instability, presents with worsening back pain. Over the past month, patient has been having worsening mid to low back pain. He had outpatient imaging the beginning of July, an MRI of the lumbar spine. The end of July on August 08, he had x-rays of the thoracic and lumbar spine. Patient was contacted today and told to come to the emergency department, that he had ?infection in his back?. Patient denies new weakness of lower extremities, saddle anesthesia, tingling in the lower extremities, urinary retention, no bowel incontinence. No fevers. The spinal stimulator is still intact. The battery from the control device is , his spouse is going back home to obtain the equipment in the event he requires additional MRI. Related Data Home Medications ?Medication ?Instructions ?Recorded ?Confirmed atorvastatin 80 mg tablet 80 mg PO DAILY 09/17/21 08/16/24 metformin 500 mg tablet 500 mg PO BID 09/17/21 08/16/24 clopidogrel 75 mg tablet 75 mg PO DAILY 06/14/24 08/16/24 dapagliflozin propanediol 10 mg 10 mg PO DAILY 06/14/24 08/16/24 tablet (Farxiga) docusate sodium 100 mg capsule 100 mg PO BID 06/14/24 08/16/24 famotidine 20 mg tablet 20 mg PO BID 06/14/24 08/16/24 fluticasone propionate 50 1 spray intranasal BID 06/14/24 07/27/24 mcg/actuation nasal spray,suspension oxycodone 5 mg tablet 5 mg PO Q12H PRN severe pain 06/14/24 08/16/24 sennosides 8.6 mg tablet (senna) 17.2 mg PO BEDTIME 06/14/24 07/27/24 tadalafil 20 mg tablet 20 mg PO 06/14/24 07/27/24 tamsulosin 0.4 mg capsule 0.4 mg PO DAILY 06/14/24 07/27/24 aspirin 81 mg tablet,delayed 81 mg PO DAILY 07/27/24 08/16/24 release (Adult Aspirin Regimen) naloxone 4 mg/actuation nasal spray intranasal PRN 07/27/24 07/27/24 ropinirole 2 mg tablet 2 mg PO BID 07/27/24 08/16/24 hydroxyzine pamoate 50 mg capsule 50 mg PO TID 08/16/24 08/16/24 zolpidem 10 mg tablet 10 mg PO BEDTIME PRN insomnia 08/16/24 08/16/24 Previous Rx's ?Medication ?Instructions ?Recorded lidocaine 5 % topical patch See Rx Instructions topical DAILY 06/14/24 30 days #30 ea pregabalin 50 mg capsule 50 mg PO BID pain 30 days #60 caps 06/14/24 Allergies Allergy/AdvReac Type Severity Reaction Status Date / Time No Known Allergies Allergy Verified 08/16/24 17:19 Review of Systems 2 Constitutional: Constitutional: Denies fatigue and Denies fever(s) Cardiovascular: Cardiovascular: Denies chest pain and Denies dyspnea Respiratory: Respiratory: Denies cough and Denies dyspnea Gastrointestinal: Gastrointestinal: Denies abdominal pain, Denies nausea and Denies vomiting Musculoskeletal: Musculoskeletal: Reports back pain, Denies numbness and Denies tingling Neurologic: Denies focal weakness, Denies numbness, Denies tingling and Denies paresthesias Endocrine: Endocrine: Denies fatigue PMFSH Past Medical History Attestation statement: The following information was validated with the patient. Medical History (Updated 08/16/24 @ 07:22 by TATE Benz) Heart failure Ischemic stroke Balanitis Osteomyelitis Moderate episode of recurrent major depressive disorder Restless leg syndrome History of cocaine use Essential (primary) hypertension CKD (chronic kidney disease) Hx of exertional chest pain Dry eye Other hyperlipidemia Urinary incontinence Lumbar radiculopathy COPD (chronic obstructive pulmonary disease) Diabetes Elevated alanine aminotransferase (ALT) level History of hepatitis B Hepatitis B immune Obstructive sleep apnea Fibromyalgia Hepatitis A immune Cervical disc disease Metabolic syndrome Cardiovascular event risk Surgical History (Updated 07/27/24 @ 13:31 by Ami Perez CMA) Status post insertion of spinal cord stimulator Family History Family History (Updated 07/27/24 @ 13:34 by Ami Perez CMA) Father Prostate cancer Heart problem Mother Heart attack DM2 (diabetes mellitus, type 2) Sister Stomach cancer Brother Alzheimer disease Social History Social History (Updated 07/27/24 @ 13:34 by Ami Perez CMA) Alcohol intake: current Alcohol intake frequency: does not drink Alcohol type: hard liquor Patient Tobacco Use Status: Current everyday Tobacco user Tobacco use type: Cigarette Cigarettes Per Day: 2 Advance Directives: No Advance Directives Information Provided: No Physical Exam ED Vital Signs: Vital Signs - 24 hr 08/16/24 17:17 08/16/24 18:36 Temperature 99.1 F 98.1 F Pulse Rate 94 74 Respiratory Rate 18 20 Blood Pressure 99/63 110/67 Pulse Oximetry 93 93 Oxygen Delivery Method Room Air Room Air BMI result Body Mass Index 36.3 Const Other: Alert, appears older than stated age Orientation/consciousness: patient oriented x3 Resp Other: Nonlabored respirations Cardio Other: Normal peripheral perfusion Skin Other: Warm dry no rash Neuro General: patient oriented x3, no focal motor deficits and CN's II-XI intact bilaterally Extrem Other: Patient ambulates with antalgic slow gait, strength is equal in bilateral lower extremities Psych Other: Cooperative Course Course Course Narrative: This is a rapid medical exam performed by Ivet Griffin NP: Additional HPI, ROS, PE not included below will be deferred to primary provider. Patient is a 64-year-old male with history of ischemic stroke with R sided deficits, cardiomyopathy, spinal stimulator who is presenting to the ED with complaint of back pain. He received a call from pain management MD and was referred to the ED, as recent MRI is concerning for discitis/osteomyelitis with phlegmon/abscess in R L4/5 compartment. Plan: labs Medications Administered Generic Name Dose Route Start Last Admin Trade Name Freq PRN Reason Stop Dose Admin Vancomycin HCl 2,000 mg in 500 mls @ 250 mls/hr 08/16/24 19:00 08/16/24 18:36 Vancomycin/Ns IV 08/16/24 20:59 250 mls/hr ONCE ONE Administration Discontinued Medications Generic Name Dose Route Start Last Admin Trade Name Freq PRN Reason Stop Dose Admin Piperacillin Sod/Tazobactam 50 mls @ 100 mls/hr 08/16/24 17:56 08/16/24 18:36 Sod 3.375 gm/ Sodium Chloride IV 08/16/24 18:25 Infused ONCE ONE Infusion Sodium Chloride 3,061.74 mls @ 3,061.74 mls/hr 08/16/24 18:00 08/16/24 18:15 Ns 30 ml/kg infuse over 1 hr (3061.74 ml) 08/16/24 18:59 3,061.74 mls/hr IV Administration .Q1H STA Ketorolac Tromethamine 15 mg 08/16/24 18:00 08/16/24 18:16 Ketorolac Tromethamine 15 Mg/Ml Vial IVPUSH 08/16/24 18:01 15 mg ONCE ONE Administration Morphine Sulfate 8 mg 08/16/24 18:00 08/16/24 18:17 Morphine Sulfate 10 Mg/Ml Cartridge IVPUSH 08/16/24 18:01 8 mg ONCE ONE Administration Protocol Medical Decision Making Medical Decision Making MDM Narrative: 64-year-old male with a history of known degenerative changes of the lumbar spine now status post spinal stimulator, prior osteomyelitis of thoracic spine, fibromyalgia, Hypertension, hyperlipidemia, diabetes, heart failure with the EF of 40-50% ECHO 2023, prior CVA with right-sided residual weakness with subsequent gait instability, presents with worsening back pain. Over the past month, patient has been having worsening mid to low back pain. He had outpatient imaging the beginning of July, an MRI of the lumbar spine. The end of July on August 08, he had x-rays of the thoracic and lumbar spine. Patient was contacted today and told to come to the emergency department, that he had ?infection in his back?. Patient denies new weakness of lower extremities, saddle anesthesia, tingling in the lower extremities, urinary retention, no bowel incontinence. No fevers. The spinal stimulator is still intact. The battery from the control device is , his spouse is going back home to obtain the equipment in the event he requires additional MRI. Problem: Age, vascular disease, chronic back pain, prior osteomyelitis History: Per patient and his spouse I have considered the following differential diagnoses: Sepsis: Epidural abscess, cauda equina, osteomyelitis, discitis, compression fracture Plan: Patient was told to come to the emergency department due to findings from outpatient imaging. He may require additional MRI, the lumbar MRI was from the beginning of July, the x-rays were from the end of July. I have received this in his future. However, the spinal stimulator is in place, I can not order the scans until the device can be turned off. The is working on that. I am also concerned for sepsis, his pressures are soft, he has a low-grade fever, Screening labs, inflammatory markers, blood cultures and lactic were ordered from triage. I need to have Radiology read the outpatient x-rays, they have yet to be read. We will start treatment with vanco, Zosyn and give morphine for his pain. The patient is not going to be able to have the weight based IV fluid requirement per our sepsis protocol, he has poor EF. I will reassess the patient for volume overload in between each Liter. I have independently reviewed the following tests: Labs: No leukocytosis, not anemic, ESR is 2, CRP less than 10, no electrolyte abnormality, lactic 2 X-ray lumbar spine: from 08/08/2024 XR/XR lumbar spine 2-3V IMPRESSION: 1. Neurostimulator device leads looped upon itself at the level of T12-L1 and terminate overlying the lower thoracic spine at the level of T9-T10. 2. Findings concerning for discitis/osteomyelitis at the level of L4-L5 are better visualized on recent MRI. 3. No evidence of acute compression deformity or subluxation. 4. Moderate multilevel thoracolumbar spondylosis with various degrees of neural foraminal encroachment and central canal stenosis. Electronically signed by: Kaylie De La Cruz MD 08/16/2024 06:14 PM EST X-ray of the thoracic spine: from 08/08/2024 XR/XR thoracic spine 3V IMPRESSION: 1. Neurostimulator device leads looped upon itself at the level of T12-L1 and terminate overlying the lower thoracic spine at the level of T9-T10. 2. Findings concerning for discitis/osteomyelitis at the level of L4-L5 are better visualized on recent MRI. 3. No evidence of acute compression deformity or subluxation. 4. Moderate multilevel thoracolumbar spondylosis with various degrees of neural foraminal encroachment and central canal stenosis. Electronically signed by: Kaylie De La Cruz MD 08/16/2024 06:14 PM EST RP MRI lumbar spine: from 07/19/2024 MR/MR lumbar spine wo/w con IMPRESSION: Concerning discitis/ osteomyelitis with phlegmon/abscess in the right anterior lateral prevertebral compartment, L4-5. No epidural abscess. Epidural lipomatosis, L4-5 and L5-S1. Multilevel spondylosis encroaching the exiting nerve roots of L5, S1 and to a lesser extent L4. Electronically signed by: Kei Cagle MD 08/10/2024 08:02 AM EDT RP Lab Data 08/16/24 17:33 08/16/24 17:33 Labs: Lab Results 08/16/24 08/16/24 Range/Units 15:39 17:33 WBC 7.9 (4.8-10.8) X10*3/uL RBC 5.35 (4.60-5.80) X10*6/uL Hgb 16.5 (14.0-18.0) g/dl Hct 47.4 (42.0-52.0) % MCV 88.6 (80.0-98.0) fL MCH 30.8 (27.0-33.0) pg MCHC 34.8 (31.0-36.0) g/dl RDW 12.4 (11.0-16.0) % Plt Count 156 L (160-400) X10*3/uL MPV 10.1 (9.4-12.4) fL Immature Gran % (Auto) 0.4 (0.0-0.4) % Neut % (Auto) 51.9 (45-73) % Lymph % (Auto) 38.8 (20-40) % [place] % (Auto) 5.9 (2-11) % Eos % (Auto) 2.4 (0-4) % Baso % (Auto) 0.6 (0-2) % Lymph # (Auto) 3.1 (1.2-4.9) X10*3/uL [place] # (Auto) 0.5 (0.1-1.2) X10*3/uL Eos # (Auto) 0.2 (0.0-0.4) X10*3/uL Baso # (Auto) 0.1 (0.0-0.2) X10*3/uL Abs Immat Gran (auto) 0.03 (0.00-0.03) X10*3/uL Absolute Neuts (auto) 4.1 (2.0-8.3) x10*3/uL Absolute Nucleated RBC 0.000 (0.0-0.012) X10*3/uL Nucleated RBC % (auto) 0.0 (0.0-0.2) /100WBC ESR 2 (0-15) MM/HR Sodium 140 (135-145) mmol/L Potassium 4.0 (3.3-5.1) mmol/L Chloride 105 (96-108) mmol/L Carbon Dioxide 24 (22-29) mmol/L Anion Gap 15 (12-20) BUN 17 H (9-16) mg/dL Creatinine 1.15 (0.5-1.4) mg/dL Estim Creat Clear Calc 73.5 Estimated GFR > 60 Random Glucose 202 H (60-115) mg/dL Lactic Acid 2.0 (0.5-2.0) mmol/L Calcium 9.8 (8.4-10.2) mg/dL Total Bilirubin 0.5 (0.0-1.0) mg/dL AST 21 (5-37) U/L ALT 20 (0-40) U/L Alkaline Phosphatase 77 (39-117) U/L C-Reactive Protein < 0.10 (< or = 0.50) mg/dL Total Protein 7.1 (6.5-8.0) g/dL Albumin 4.1 (3.5-5.0) g/dL Urine Color Yellow Urine Appearance Clear Urine pH 6.0 (5.0-9.0) Ur Specific [place] >= 1.030 H (1.005-1.025) Urine Protein Negative (Neg-Trace) mg/dL Urine Glucose (UA) >=1000 H (Negative) mg/dL Urine Ketones Negative (Negative) mg/dL Urine Blood Negative (Negative) Urine Nitrite Negative (Negative) Ur Leukocyte Esterase Negative (Negative) Urine RBC 0-2 (0-2) /HPF Urine WBC 6-10 H (0-5) /HPF Ur Squamous Epith Cells 0-2 (0-2) /HPF Urine Bacteria None Seen (None Seen) Hyaline Casts 0-2 (0-2) /LPF Discharge Plan Discharge Prescriptions: No Action hydroxyzine pamoate 50 mg capsule 50 mg PO TID zolpidem 10 mg tablet 10 mg PO BEDTIME PRN (Reason: insomnia) atorvastatin 80 mg tablet 80 mg PO DAILY metformin 500 mg tablet 500 mg PO BID ropinirole 2 mg tablet 2 mg PO BID famotidine 20 mg tablet 20 mg PO BID oxycodone 5 mg tablet 5 mg PO Q12H PRN (Reason: severe pain) dapagliflozin propanediol [Farxiga] 10 mg tablet 10 mg PO DAILY docusate sodium 100 mg capsule 100 mg PO BID sennosides [senna] 8.6 mg tablet 17.2 mg PO BEDTIME clopidogrel 75 mg tablet 75 mg PO DAILY tamsulosin 0.4 mg capsule 0.4 mg PO DAILY tadalafil 20 mg tablet 20 mg PO fluticasone propionate 50 mcg/actuation spray,suspension 1 spray intranasal BID pregabalin 50 mg capsule 50 mg PO BID 30 Days Qty: 60 0RF lidocaine 5 % adhesive patch,medicated See Rx Instructions topical DAILY 30 Days Qty: 30 0RF Rx Instructions: leave on most painful area for up to 12 hrs topically daily; naloxone 4 mg/actuation spray,non-aerosol intranasal PRN aspirin [Adult Aspirin Regimen] 81 mg tablet,delayed release (DR/EC) 81 mg PO DAILY Print Language: Maltese
[2024-08-16 17:17] VITALS: BP 99/63; PULSE 94; RESP 18; TEMP 37.3; O2SAT 93; BMI 36.3
[2024-08-16 17:43] LABS: MANUAL DIFF FLAG NO
[2024-08-16 17:53] LABS: Appearance Urine Clear; Color Urine Yellow; Glucose Urine UA >=1000 mg/dL (Negative); Leukocyte Esterase Urine Negative (Negative); Nitrite Urine Negative (Negative); Specific Gravity - Urine >= 1.030 (1.005-1.025); UMIC TRIGGER UACC YES; Urine Blood Negative (Negative); Urine Ketones Negative (Negative); Urine Protein Negative (Neg-Trace)
[2024-08-16 17:58] LABS: Alanine Aminotransferase 20 U/L (0-40); Albumin Level 4.1 g/dL (3.5-5.0); Alkaline Phosphatase 77 U/L (39-117); Anion Gap 15 (12-20); Aspartate Amino Transferase 21 U/L (5-37); Bilirubin Total 0.5 mg/dL (0.0-1.0); Blood Urea Nitrogen 17 mg/dL (9-16); C Reactive Protein < 0.10 mg/dL (< or = 0.50); Calcium 9.8 mg/dL (8.4-10.2); Carbon Dioxide 24 mmol/L (22-29); Chloride 105 mmol/L (96-108); Creatinine Clr Calc Pharmacy 73.5; Estimated Glomerular Filt Rate > 60; Glucose Random 202 mg/dL (60-115); Sodium 140 mmol/L (135-145); Total Protein 7.1 g/dL (6.5-8.0)
[2024-08-16 17:59] LABS: Bacteria Urine None Seen (None Seen); Hyaline Casts Urine 0-2 /LPF (0-2); RBC Urine 0-2 /HPF (0-2); Squamous Epithelial Cell Urine 0-2 /HPF (0-2); UACC Culture Trigger YES
[2024-08-16] MEDS: Piperacillin Sodium/Tazobactam 3.375 GM in 0.9 % Sodium Chloride 50 ML IV (18:15)
[2024-08-16] MEDS: 0.9 % Sodium Chloride 3,061.74 ML 3061.74 ML IV (18:15)
[2024-08-16] MEDS: Ketorolac Tromethamine 15 MG/ML VIAL IVPUSH (18:16)
[2024-08-16] MEDS: Morphine Sulfate 10 MG/ML CARTRIDGE 8 MG IVPUSH (18:17)
[2024-08-16 18:18] LABS: Basophils Absolute Auto 0.1 X10*3/uL (0.0-0.2); Basophils Percent Auto 0.6 % (0-2); Eosinophils Absolute Auto 0.2 X10*3/uL (0.0-0.4); Eosinophils Percent Auto 2.4 % (0-4); Hematocrit 47.4 % (42.0-52.0); Hemoglobin 16.5 g/dl (14.0-18.0); Imm Gran Abs Auto 0.03 X10*3/uL (0.00-0.03); Imm Gran Pct Auto 0.4 % (0.0-0.4); Lymphocytes Absolute Auto 3.1 X10*3/uL (1.2-4.9); Lymphocytes Percent Auto 38.8 % (20-40); Mean Corpuscular HGB Conc 34.8 g/dl (31.0-36.0); Mean Corpuscular Hemoglobin 30.8 pg (27.0-33.0); Mean Corpuscular Volume 88.6 fL (80.0-98.0); Mean Platelet Volume 10.1 fL (9.4-12.4); Monocytes Absolute Auto 0.5 X10*3/uL (0.1-1.2); Monocytes Percent Auto 5.9 % (2-11); Neutrophils Absolute Auto 4.1 x10*3/uL (2.0-8.3); Neutrophils Percent Auto 51.9 % (45-73); Platelet Count 156 X10*3/uL (160-400); Red Blood Count 5.35 X10*6/uL (4.60-5.80); Red Cell Distribution Width 12.4 % (11.0-16.0); White Blood Count 7.9 X10*3/uL (4.8-10.8)
[2024-08-16 18:36] VITALS: BP 110/67; PULSE 74; RESP 20; TEMP 36.7; O2SAT 93
[2024-08-16] MEDS: vancomycin/NS 2,000 MG/500 ML PLAST..BAG 250 MG IV (18:36)
[2024-08-16 18:38] LABS: Erythrocyte Sedimentation Rate 2 MM/HR (0-15)
--- OUTSIDE RECORDS SUMMARY | 2024-08-16 20:24 | XMS_ITS | Continuity of Care Document ---
Author Organization [facility] Address [address] [place] [address]- Care Team Providers Care Door Opener Name Role Phone Rosario Spivey MD Primary Care Physician Encounter [facility] Date(s): 12/01/23 - 12/31/23 [facility] [address] [place], [place] [address] Attending Physician: Kaley Lundberg Admitting Physician: Kaley Lundberg Referring Physician: AdmtrKaley Allergies, Adverse Reactions, Alerts No Known Allergies Immunizations Given and Recorded Vaccine Date Status Refusal Reason tetanus/diphtheria/pertussis, acel(Tdap) 03/11/16 Given Medications amLODIPine 5 mg oral tablet 5 mg, By Mouth, Daily, Refills 0, Maintenance, 05/03/23 15:11:00 EDT, Partial fill upon patient request if the prescription is for a schedule II opioid drug. Start Date: 05/03/23 Status: Ordered aspirin 81 mg oral tablet 1 tablet = 81 mg, By Mouth, Daily, # 30 tablet, 0 Refills, Maintenance, 09/28/18 3:28:43 EST, Tablet Start Date: 09/28/18 Status: Ordered ceftriaxone 2 gm injectable powder for injection = 2 Gm, IVPB, Every 24 hours, til 06/07, 0 Refills, Maintenance, 05/03/23 15:11:00 EDT, Injection, Partial fill upon patient request if the prescription is for a schedule II opioid drug. Start Date: 05/03/23 Stop Date: 06/07/23 Status: Ordered Docusate/Senna Tablet 1 tablet, By Mouth, 2 times a day, 0 Refills, Maintenance, 05/03/23 15:12:00 EDT, Tablet, Partial fill upon patient request if the prescription is for a schedule II opioid drug. Start Date: 05/03/23 Status: Ordered famotidine 20 mg oral tablet 20 mg, 1, tablet, By Mouth, 2 times a day, # 180 tablet, Refills 0, Maintenance, 04/26/23 19:21:00 EDT, Partial fill upon patient request if the prescription is for a schedule II opioid drug. Start Date: 04/26/23 Status: Ordered Incruse Ellipta 62.5 mcg/inh inhalation powder 1 each, Inhalation, Every 24 hours, doses should be taken at least 24 hours apart, # 30 each, 0 Refills, Maintenance, 04/26/23 19:21:00 EDT, Powder, Partial fill upon patient request if the prescription is for a schedule II opioid drug. Start Date: 04/26/23 Status: Ordered insulin glargine 100 u/ml subcutaneous solution = 8 units, Subcutaneous Injection, Daily at bedtime, # 10 mL, 0 Refills, Maintenance, 08/15/22 12:19:00 EDT, Solution, Partial fill upon patient request if the prescription is for a schedule II opioid drug. Start Date: 08/15/22 Status: Ordered metFORMIN 500 mg oral tablet TAKE 2 TABLETS BY MOUTH TWICE DAILY WITH MORNING MEAL AND WITH EVENING MEAL Start Date: 04/26/23 Status: Ordered MiraLax Powder 1 pack/packet = 17 Gm, By Mouth, Daily, PRN Constipation, 0 Refills, Maintenance, 05/03/23 15:12:00EDT, Powder, Partial fill upon patient request if the prescription is for a schedule II opioid drug. Start Date: 05/03/23 Status: Ordered rOPINIRole 2 mg oral tablet TAKE 1 TABLET BY MOUTH THREE TIMES DAILY Start Date: 04/26/23 Status: Ordered Tadalafil (Eqv-Cialis) 20 mg oral tablet TAKE 1 TABLET BY MOUTH 45 MINUTES BEFORE SEXUAL ACTIVITY DIRECTED Start Date: 04/26/23 Status: Ordered tamsulosin 0.4 mg oral capsule 0.4 mg, 1, capsule, By Mouth, Daily, Refills 0, Maintenance, 03/26/23 8:24:00 EDT, Partial fill upon patient request if the prescription is for a schedule II opioid drug. Start Date: 03/26/23 Status: Ordered zolpidem 10 mg oral tablet 1 tablet = 10 mg, By Mouth, Daily at bedtime, PRN as needed for insomnia, 0 Refills, Maintenance, 04/26/23 19:21:00 EDT, Tablet, Partial fill upon patient request if the prescription is for a schedule II opioid drug. Start Date: 04/26/23 Status: Ordered Problem List Condition Confirmation Course Effective Dates Status H ealth Status Informant Chronic back pain Confirmed Active Diabetes mellitus type 2 Confirmed Active Erectile dysfunction Confirmed Active GERD - Gastro-esophageal reflux disease Confirmed Active Hyperlipidemia Confirmed Active Hypertension Confirmed Active Obese class I Confirmed Active Social History Social History Type Response Tobacco Use: 4 or less cigar ettes(less than 1/4 pack)/day in last 30 days. Other: 1-2 cigarettes/day. Sex Patient Care team information Care Team Personnel Name: Neil Cain RN Position: S RN Member Role: Primary Care Nurse Name: Rachel Santos RN Position: S RN Member Role: Primary Care Nurse Name: Aleja Scherer LPN Position: S RN Member Role: Primary Care Nurse Name: Francy Lieberman RN Position: S RN Member Role: Primary Care Nurse Name: Rosario Spivey MD Position: [facility] Outreach Member Role: PCP Address: Address: [address] [place], [place] [address] Name: Anna Christopher RN Position: S RN Member Role: Primary Care Nurse Name: Jude Briggs RN Position: [facility] ED RN W/OE and Tasks Member Role: Primary Care Nurse Name: Davina Alvarez RN Position: S RN Member Role: Primary Care Nurse Name: Juan J Solomon RN Position: S RN Member Role: Primary Care Nurse Care Team Related Persons Name: KEENAN GINA Address: home [address] [place] [address] Name: LIO GUZMÁN Address: home [address] [place] [address] Name: PRESLEY GATES Address: home [address] [place] [address]
--- OUTSIDE RECORDS SUMMARY | 2024-08-16 20:24 | XMS_ITS | Continuity of Care Document ---
Author Organization [facility] Address [address] [place] [address]- Care Team Providers Care Laboratory Technology Teacher Name Role Phone Kranthi Little MD, Piedad Hayden Primary Care Physici an Encounter [facility] [place] Date(s): 04/29/22 - 04/29/[address] [address]- Discharge Disposition: A-D/C Home Attending Physician: Phu Ford DO Admitting Physician: Phu Ford DO Referring Physician: Not on Staff, Referring MD Allergies, Adverse Reactions, Alerts No Known Allergies Immunizations Given and Recorded Vaccine Date Status Refusal Reason tetanus/diphtheria/pertussis, acel(Tdap) 03/11/16 Given Medications amLODIPine 5 mg oral tablet 5 mg, 1, tablet, By Mouth, Daily, # 30 tablet, Refills 0, Maintenance, 09/28/18 3:29:44 EST Start Date: 09/28/18 Status: Ordered aspirin 81 mg oral tablet 1 tablet = 81 mg, By Mouth, Daily, # 30 tablet, 0 Refills, Maintenance, 09/28/18 3:28:43 EST, Tablet Start Date: 09/28/18 Status: Ordered Famotidine 1 tab, By Mouth, Daily in AM, 0 Refills, Maintenance, 02/08/20 12:20:00 EDT Start Date: 02/08/20 Status: Ordered gabapentin 300 mg oral capsule 300 mg, 1, capsule, By Mouth, 3 times a day, # 270 capsule, Refills 0, Tot. Refills 0, Maintenance,03/10/22 8:51:00 EDT, Route to Pharmacy Electronically, [facility], Partial fill uponpatient request if the prescription is for a schedu... Start Date: 03/10/22 Status: Ordered meloxicam 7.5 mg oral tablet See Instructions, PRN Pain , Moderate, 1 tablet By Mouth as needed for pain, 0 Refills, Maintenance, 09/28/18 3:31:29 EST Start Date: 09/28/18 Status: Ordered oxybutynin 10 mg/24 hr oral tablet, extended release 1 tablet = 10 mg, By Mouth, Daily, # 30 tablet, 0 Refills, Maintenance, 09/28/18 3:29:16 EST, ER Tablet Start Date: 09/28/18 Status: Ordered Pravastatin 1 tab, By Mouth, Daily at bedtime, 0 Refills, Maintenance, 02/08/20 12:20:00 EDT Start Date: 02/08/20 Status: Ordered Ropinirole 1 mg- 2tabs, By Mouth, 0 Refills, Maintenance, 02/08/20 12:11:00 EDT Start Date: 02/08/20 Status: Ordered Viagra See Instructions, By Mouth Daily as needed, 0 Refills, Maintenance, 02/08/20 12:21:00 EDT Start Date: 02/08/20 Status: Ordered Zolpidem 1 tab, By Mouth, Daily at bedtime, 0 Refills, Maintenance, 02/08/20 12:10:00 EDT Start Date: 02/08/20 Status: Ordered Problem List Condition Effective Dates Status Health Status Inform ant Severe obesity(Confirmed) Active Vital Signs Most recent to oldest [Reference Range]: 1 2 3 Oxygen Saturation [94-100 %] 95 % (04/29/22 10:16 PM) 96 % (04/29/22 7:34 PM) Pulse Rate [55-90 bpm] 95 bpm *H* (04/29/22 10:16 PM) 120 bpm *H* (04/29/22 7:34 PM) Blood Pressure [90-138/55-84 mm Hg] 140/84mm Hg *H* (04/29/22 10:16 PM) 134/79mm Hg (04/29/22 7:48 PM) Respiratory Rate [16-30 br/min] 18 br/min (04/29/22 10:16 PM) 18 br/min (04/29/22 7:48 PM) 16 br/min (04/29/22 7:34 PM) Temperature [96.8-100.4 DegF] 97.5 DegF (04/29/22 10:16 PM) 97.8 DegF (04/29/22 7:48 PM) Mode of Delivery (Oxygen) Room air (04/29/22 10:16 PM) Room air (04/29/22 7:48 PM) Room air (04/29/22 7:34 PM) Blood pressure sites Arm, left (04/29/22 10:16 PM) Arm, left (04/29/22 7:48 PM) Temperature Route Oral (04/29/22 10:16 PM) Oral (04/29/22 7:48 PM)
--- OUTSIDE RECORDS SUMMARY | 2024-08-16 20:24 | XMS_ITS | Continuity of Care Document ---
Author Organization [facility] Address [address] [place] [address]- Care Team Providers Care Councillor Aboriginal Land Council Name Role Phone Allyssa MANCILLA, Rosario Primary Care Physician Unava ilable Encounter [facility] Date(s): 02/28/22 - 03/01/[address] [address]- Discharge Disposition: A-D/C Walkout Attending Physician: Richi Burger MD Admitting Physician: Richi Burger MD Referring Physician: Not on Staff, Referring MD [...] 12:20:00 EDT Start Date: 02/08/20 Status: Ordered meloxicam 7.5 mg oral tablet [...] recent to oldest [Reference Range]: 1 2 Height 168 cm (02/28/22 6:16 PM) 168 cm (02/28/22 6:14 PM) Weight 113 kg (02/28/22 6:16 PM) 113 kg (02/28/22 6:14 PM) Oxygen Saturation [94-100 %] 96 % (02/28/22 6:14 PM) Pulse Rate [55-90 bpm] 94 bpm *H* (02/28/22 6:14 PM) Body Mass Index [18.5-24.99] 40.04 *>HHI* (02/28/22 6:14 PM) Blood Pressure [90-138/55-84 mm Hg] 144/ 78mm Hg *H* (02/28/22 6:14 PM) Respiratory Rate [16-30 br/min] 20 br/mi n (02/28/22 6:14 PM) Temperature [96.8-100.4 DegF] 98.1 DegF (02/28/22 6:14 PM) Mode of Delivery (Oxygen) Room air (02/28/22 6:14 PM) Blood pressure sites Arm, left (02/28/22 6:14 PM) Temperature Route Oral (02/28/22 6:14 PM) Dry Weight 113 kg (02/28/22 6:16 PM) 113 kg (02/28/22 6:14 PM)
--- OUTSIDE RECORDS SUMMARY | 2024-08-16 20:24 | XMS_ITS | Continuity of Care Document ---
Author Organization [facility] Address [address] [place] [address]- Care Team Providers Care Mental Measurements Teacher Name Role Phone Rosario Spivey MD Primary Care Physician Encounter [facility] [place] Date(s): 11/02/23 - 12/24/23 [facility] [address] [place] [id number] Attending Physician: Dhaval Saez MD Admitting Physician: Dhaval Saez MD Referring Physician: Rosario Spivey MD Allergies, Adverse Reactions, Alerts No Known [...] Team Personnel Name: Neil Cain RN Position: [facility] RN Member Role: Primary Care Nurse Name: Rachel Santos RN Position: S RN Member Role: Primary Care Nurse Name: Aleja Scherer LPN Position: S RN Member Role: Primary Care Nurse Name: Francy Lieberman RN Position: [facility] RN Member Role: Primary Care Nurse Name: Rosario Spivey MD Position: [facility] Outreach Member Role: PCP Address: Address: [address] [place], [place] [address] Name: Anna Christopher RN Position: S RN Member Role: Primary Care Nurse Name: Jude Briggs RN Position: [facility] ED RN W/OE and Tasks Member Role: Primary Care Nurse Name: Davina Alvarez RN Position: [facility] RN Member Role: Primary Care Nurse Name: Juan J Solomon RN Position: [facility] RN Member Role: Primary Care Nurse Care Team Related Persons Name: GINA HUSSEIN Address: home [address] [place] [address] Name: LIO GUZMÁN Address: home [address] [place] [address] Name: PRESLEY GATES Address: home [address] [place] [address]
--- OUTSIDE RECORDS SUMMARY | 2024-08-16 20:24 | XMS_ITS | Continuity of Care Document ---
Author Organization [facility] ter Address [address] [place] [address]- Care Team Providers Care Outbound Telemarketer Name Role Phone Rosario Spivey MD Primary Care Physician Encounter [facility] [place] Date(s): 02/09/20 - 02/10/[address] [address]- [facility] Discharge Disposition: A-D/C Home Attending Physician: Manny Benites MD Admitting Physician: Manny Benites MD Referring Physician: Manny Benites MD Allergies, Adverse Reactions, Alerts Substance Reaction Severity Status NKA Active Immunizations Given and Recorded Vaccine Date Status [...] ER Tablet Start Date: 09/28/18 Status: Ordered oxyCODONE 5 mg oral tablet 5 mg, 1, tablet, By Mouth, Every 6 hours, PRN, # 28 tablet, Refills 0, Tot. Refills 0, Acute 02/19/20 7:39:00 EDT, Pain , Moderate, 02/09/20 7:39:00 EDT, Route to Pharmacy Electronically, [facility], Partial fill upon patient request, 16... Start Date: 02/09/20 Stop Date: 02/19/20 Status: Ordered Pravastatin 1 tab, By Mouth, [...] 12:10:00 EDT Start Date: 02/08/20 Status: Ordered Procedures Procedure Date Related Diagnosis Body Site Status Laminectomy for implantation of neurostimulator electrodes, plate/paddle, epidural Completed Results Radiology Reports * Exam Date Time Procedure Performing Provider Status 02/09/20 9:09 AM C-Arm > 1 Hour Analisa Ortiz; Silvia (Verified) Notes: (C-Arm > 1 Hour) Reason For Exam: Spinal Cord Stimulator Insertion (TT 1hr / FT 11sec) RESULT: C-Arm > 1 Hour C-Arm > 1 Hour INDICATION: Reason: Spinal Cord Stimulator Insertion (TT 1hr FT 11sec) COMPARISONS: None TECHNIQUE: Fluoroscopy support was provided. There was no radiologist in attendance. Fluoroscopy time: 11 seconds Technologist time: 1 hour FINDINGS: Fluoroscopy support was provided. There was no radiologist in attendance. IMPRESSION: See above. WSN: [id number] Ordering Physician: Manny Benites Dictated By: Ron Chau MD Dictated Date/Time: 02/10/20 8:58 am Reviewed By: Ron Chau MD Signed By: Ron Chau MD Signed Date/Time: 02/10/20 8:58 am Transcribed By: REGGIE Transcribed Date/Time: 02/09/20 5:55 pm Vital Signs Most recent to oldest [Reference Range]: 1 2 3 Height 167.64 cm (02/10/20 7:49 AM) 167.64 cm (02/10/20 5:12 AM) 167.64 cm (02/10/20 12:28 AM) Weight 110.9 kg (02/09/20 6:44 AM) Oxygen Saturation [94-100 %] 98 % (02/10/20 7:49 AM) 94 % (02/10/20 5:12 AM) 96 % (02/10/20 12:28 AM) Pulse Rate [55-90 bpm] 70 bpm (02/10/20 7:49 AM) 70 bpm (02/10/20 5:12 AM) 79 bpm (02/10/20 12:28 AM) Body Mass Index [18.5-24.99] 39.46 *>HHI* (02/09/20 6:44 AM) Blood Pressure [90-138/55-84 mm Hg] 137/88mm Hg (02/10/20 9:22 AM) 137/88mm Hg (02/10/20 7:49 AM) 120/80mm Hg (02/10/20 5:12 AM) Respiratory Rate [16-30 br/min] 18 br/min (02/10/20 11:01 AM) 18 br/min (02/10/20 7:49 AM) 18 br/min (02/10/20 7:31 AM) Temperature [96.8-100.4 DegF] 98.5 DegF (02/10/20 7:49 AM) 97.7 DegF (02/10/20 5:12 AM) 97.7 DegF (02/10/20 12:28 AM) Liters per Minute 2 L/min (02/09/20 11:27 AM) 2 L/min (02/09/20 10:53 AM) 6 L/min (02/09/20 10:00 AM) Mode of Delivery (Oxygen) Room air (02/10/20 7:49 AM) Room air (02/10/20 5:12 AM) Room air (02/10/20 12:28 AM) Blood pressure sites Arm, left (02/10/20 7:49 AM) Arm, left (02/09/20 3:44 PM) Arm, left (02/09/20 12:47 PM) Temperature Route Oral (02/10/20 7:49 AM) Oral (02/10/20 5:12 AM) Oral (02/10/20 12:28 AM) Dry Weight 110.9 kg (02/09/20 6:44 AM) 110.00 kg (02/08/20 12:24 PM) Weight Obtained Via Standing scale (02/09/20 6:44 AM) Dry Weight Obtained Via Standing scale (02/09/20 6:44 AM) Patient/family stated (02/08/20 12:24 PM)
--- OUTSIDE RECORDS SUMMARY | 2024-08-16 20:24 | XMS_ITS | Continuity of Care Document ---
Author Organization [facility] Address [address] [place] [address]- Care Team Providers Care Stallion Manager Name Role Phone Rosario Spivey MD Primary Care Physician [place] [facility] [place] 11/24/23 - 12/24/23 [facility] [address] [place] [id number] Attending Physician: Kaley Lundberg Admitting Physician: [...] Care Nurse Name: Rosario Spivey MD Position: S Outreach Member Role: PCP Address: Address: [address] [place], [place] [address] Name: Anna Christopher RN Position: S RN Member Role: Primary Care Nurse Name: Jude Briggs RN Position: [facility] ED RN W/OE and Tasks Member Role: Primary Care Nurse Name: Davina Alvarez RN Position: S RN Member Role: Primary Care Nurse Name: Juan J Solomon RN Position: S RN Member Role: Primary Care Nurse Care Team Related Persons Name: GINA HUSSEIN Address: home [address] [place] [address] Name: LIO GUZMÁN Address: home [address] [place] [address] Name: PRESLEY GATES Address: home [address] [place] [address]
--- OUTSIDE RECORDS SUMMARY | 2024-08-16 20:24 | XMS_ITS | Continuity of Care Document ---
Author Organization [facility] Address [address] [place] [address]- Care Team Providers Care Wet Process Head Miller Name Role Phone Rosario Spivey MD Primary Care Physician Unava ilable [place] [facility] [place](s): 05/29/23 - 06/28/23 [facility] [address] [place] [id number] Attending Physician: Kaley Lundberg Admitting Physician: Kaley Lundberg Referring Physician: [id number] Allergies, Adverse Reactions, Alerts No Known Allergies [...] Team Personnel Name: Neil Cain RN Position: [facility] RN Member Role: Primary Care Nurse Name: Sarah Archibald RN Position: [facility] RN Member Role: Primary Care Nurse Name: Rachel Santos RN Position: S RN Member Role: Primary Care Nurse Name: Aleja Scherer LPN Position: [facility] RN Member Role: Primary Care Nurse Name: Francy Lieberman RN Position: [facility] RN Member Role: Primary Care Nurse Name: Rosario Spivey MD Position: [facility] Outreach Member Role: PCP Name: Anna Christopher RN Position: [facility] RN Member Role: Primary Care Nurse Name: Ariadne Perez RN Position: [facility] RN Member Role: Primary Care Nurse Name: Jude Briggs RN Position: [facility] RN Member Role: Primary Care Nurse Name: Davina Alvarez RN Position: [facility] RN Member Role: Primary Care Nurse Name: Juan J Solomon RN Position: [facility] RN Member Role: Primary Care Nurse Care Team Related Persons Name: KEENAN GINA Address: home [address] [place] [address] Name: LIO PEREZ Address: home [address] [place] [address] Name: PRESLEY GATES Address: home [address] [place] [address]
--- OUTSIDE RECORDS SUMMARY | 2024-08-16 20:24 | XMS_ITS | Continuity of Care Document ---
Author Organization [facility] Address [address] [place] [address]- Care Team Providers Care Clinical Molecular Geneticist Name Role Phone Rosario Spivey MD Primary Care Physician [place] [facility] [place] 12/[place]/23 [facility] [address] [place] [id number] Attending Physician: Dhaval Saez MD Admitting Physician: Dhaval Saez MD Allergies, Adverse Reactions, Alerts No Known [...] Team Personnel Name: Neil Cain RN Position: [facility] RN Member Role: Primary Care Nurse Name: Rachel Santos RN Position: S RN Member Role: Primary Care Nurse Name: Aleja Scherer LPN Position: S RN Member Role: Primary Care Nurse Name: Francy Lieberman RN Position: [facility] RN Member Role: Primary Care Nurse Name: Rosario Spivey MD Position: [facility] Outreach Member Role: PCP Address: Address: [address] [place], [place] [address] Name: Anna Christopher RN Position: [facility] RN Member Role: Primary Care Nurse Name: Jude Briggs RN Position: [facility] ED RN W/OE and Tasks Member Role: Primary Care Nurse Name: Davina Alvarez RN Position: [facility] RN Member Role: Primary Care Nurse Name: Juan J Solomon RN Position: [facility] RN Member Role: Primary Care Nurse Care Team Related Persons Name: GINA HUSSEIN Address: home [address] [place] [address] Name: LIO GUZMÁN Address: home [address] [place] [address] Name: PRESLEY GATSE Address: home [address] [place] [address]
--- OUTSIDE RECORDS SUMMARY | 2024-08-16 20:24 | XMS_ITS | Continuity of Care Document ---
Author Organization [facility] ter Address [address] [place] [address]- Care Team Providers Care Emergency Room Registered Nurse Name Role Phone Allyssa MANCILLA, Rosario Primary Care Physician Unava ilable Encounter [facility] [place] Date(s): 05/01/23 - 05/31/[address] [address] Attending Physician: Not on Staff, Attending MD Admitting Physician: Not on Staff, Admitting MD Referring Physician: Not on Staff, Referring [...] Confirmed Active Hypertension Confirmed Active Obese class II Confirmed Active Social History Social History Type Response Tobacco Use: 4 or less cigar ettes(less than 1/4 pack)/day in last 30 days. Other: 1-2 cigarettes/day. Sex Patient Care team information Care Team Personnel Name: Neil Cain RN Position: [facility] RN Member Role: Primary Care Nurse Name: Sarah Archibald RN Position: [facility] RN Member Role: Primary Care Nurse Name: Rachel Santos RN Position: S RN Member Role: Primary Care Nurse Name: Aleja Scherer LPN Position: [facility] RN Member Role: Primary Care Nurse Name: Francy Lieberman RN Position: [facility] RN Member Role: Primary Care Nurse Name: Rosario Spivey MD Position: [facility] Outreach Member Role: PCP Name: Anna Christopher RN Position: [facility] RN Member Role: Primary Care Nurse Name: Ariadne Perez RN Position: [facility] RN Member Role: Primary Care Nurse Name: Jude Briggs RN Position: S RN Member Role: Primary Care Nurse Name: Davina Alvarez RN Position: [facility] RN Member Role: Primary Care Nurse Name: Juan J Solomon RN Position: [facility] RN Member Role: Primary Care Nurse Care Team Related Persons Name: GINA HUSSEIN Address: home [address] [place] [address] Name: LIO PEREZ Address: [address] [place] [address] Name: PRESLEY GATES Address: [address] [place] [address]
--- OUTSIDE RECORDS SUMMARY | 2024-08-16 20:24 | XMS_ITS | Continuity of Care Document ---
Author Organization [facility] ter Address [address] [place] [address]- Care Team Providers Care Locker Room Clerk Name Role Phone Rosario Spivey MD Primary Care Physician Encounter [facility] [place] Date(s): 12/13/19 - 01/28/[address] [address]- [facility] Attending Physician: Manny Benites MD Admitting Physician: Manny Benites MD Allergies, Adverse Reactions, [...] EST, Tablet Start Date: 09/28/18 Status: Ordered atorvastatin 40 mg oral tablet 1 tablet = 40 mg, By Mouth, Daily, # 30 tablet, 0 Refills, Maintenance, Tablet Start Date: 09/28/18 Status: Ordered meloxicam 7.5 mg oral tablet [...] ER Tablet Start Date: 09/28/18 Status: Ordered raNITIdine 150 mg oral tablet See Instructions, PRN Other, 1 tablet By Mouth 2 times a day, 0 Refills, Maintenance, 09/28/18 3:28:24 EST Start Date: 09/28/18 Status: Ordered Requip 1 mg oral tablet 1 tablet = 1 mg, By Mouth, 3 times a day, 0 Refills, Maintenance, 09/28/18 3:30:57 EST Start Date: 09/28/18 Status: Ordered tamsulosin 0.4 mg oral capsule 0.4 mg, 1, capsule, By Mouth, Daily, # 30 capsule, Refills 0, Maintenance, 09/28/18 3:27:27 EST Start Date: 09/28/18 Status: Ordered
--- OUTSIDE RECORDS SUMMARY | 2024-08-16 20:24 | XMS_ITS | Continuity of Care Document ---
Author Organization [facility] ter Address [address] [place] [address]- Care Team Providers Care Network Administrator Name Role Phone Kranthi Little MD, Gina Hayden Primary Care Physici an [place] [facility] [place] Date(s): 03/27/23 - 03/27/[address] [address] Discharge Disposition: A-D/C Home Attending Physician: Juan Davidson MD Admitting Physician: Juan Davidson MD Referring Physician: Juan Davidson MD Allergies, Adverse Reactions, Alerts No Known Allergies Immunizations Given and Recorded Vaccine Date Status Refusal Reason tetanus/diphtheria/pertussis, acel(Tdap) 03/11/16 Given Medications amLODIPine 5 mg oral tablet 5 mg, 1, tablet, By Mouth, Daily in AM, # 30 tablet, Refills 0, Maintenance, 09/28/18 [...] Maintenance,03/10/22 8:51:00 EDT, Route to Pharmacy Electronically, [facility], Partial fill uponpatient request if the prescription is for a schedu... Start Date: 03/10/22 Status: Ordered glipiZIDE 5 mg oral tablet 5 mg, 1, tablet, By Mouth, Daily in AM, # 30 tablet, Refills 0, Maintenance, 08/15/22 10:16:00 EDT,Partial fill upon patient request if the prescription is for a schedule II opioid drug. Start Date: 08/15/22 Status: Ordered insulin glargine 100 u/ml subcutaneous solution = 8 units, Subcutaneous Injection, Daily at bedtime, # 10 mL, 0 Refills, Maintenance, 08/15/22 12:19:00 EDT, Solution, Partial fill upon patient request if the prescription is for a schedule II opioid drug. Start Date: 08/15/22 Status: Ordered metFORMIN 500 mg oral tablet 1 tablet = 500 mg, By Mouth, Daily in AM, # 180 tablet, 0 Refills, Maintenance, 08/15/22 10:15:00 EDT, Tablet, Partial fill upon patient request if the prescription is for a schedule II opioid drug. Start Date: 08/15/22 Status: Ordered Pravastatin 1 tab, By Mouth, Daily at bedtime, 0 Refills, Maintenance, 02/08/20 12:20:00 EDT Start Date: 02/08/20 Status: Ordered Ropinirole 1 mg- 2tabs, By Mouth, 2 times a day, 0 Refills, Maintenance, 02/08/20 12:11:00 EDT Start Date: 02/08/20 Status: Ordered tamsulosin 0.4 mg oral capsule 0.4 mg, 1, capsule, By Mouth, Daily, Refills 0, Maintenance, 03/26/23 8:24:00 EDT, Partial fill upon patient request if the prescription is for a schedule II opioid drug. Start Date: 03/26/23 Status: Ordered Viagra 1 tablet, By Mouth, PRN Other, erectile dysfunction., 0 Refills, Maintenance, 02/08/20 12:21:00 EDT Start Date: 02/08/20 Status: Ordered Zolpidem 1 tab, By Mouth, Daily at bedtime, 0 Refills, Maintenance, 02/08/20 12:10:00 EDT Start Date: 02/08/20 Status: Ordered Problem List Condition Confirmation Course Effective Dates Status Health St atus Informant Obese class II Confirmed Active Vital Signs Most recent to oldest [Reference Range]: 1 2 3 Height 168 cm (03/27/23 6:41 AM) 168 cm (03/26/23 9:12 AM) Weight 105.8 kg (03/27/23 6:41 AM) 106.6 kg (03/26/23 9:12 AM) Oxygen Saturation [94-100 %] 94 % (03/27/23 10:00 AM) 93 % *L* (03/27/23 9:45 AM) 92 % *L* (03/27/23 9:30 AM) Pulse Rate [55-90 bpm] 96 bpm *H* (03/27/23 6:41 AM) Body Mass Index [18.5-24.99 kg/m2] 37.49 kg/m2 *>HHI* (03/27/23 6:41 AM) 37.77 kg/m2 *>HHI* (03/26/23 9:12 AM) Blood Pressure [90-138/55-84 mm Hg] 124/85mm Hg (03/27/23 10:00 AM) 132/87mm Hg (03/27/23 9:45 AM) 117/80mm Hg (03/27/23 9:30 AM) Respiratory Rate [16-30 br/min] 17 br/min (03/27/23 10:00 AM) 18 br/min (03/27/23 9:45 AM) 20 br/min (03/27/23 9:30 AM) Temperature [96.8-100.4 DegF] 97.8 DegF (03/27/23 9:45 AM) 97.8 DegF (03/27/23 8:30 AM) 97.6 DegF (03/27/23 6:41 AM) Liters per Minute 6 L/min (03/27/23 9:00 AM) 6 L/min (03/27/23 8:45 AM) 6 L/min (03/27/23 8:30 AM) Mode of Delivery (Oxygen) Room air (03/27/23 9:45 AM) Room air (03/27/23 9:30 AM) Room air (03/27/23 9:15 AM) Blood pressure sites Arm, right (03/27/23 8:30 AM) Arm, right (03/27/23 6:41 AM) Temperature Route Temporal (03/27/23 9:45 AM) Temporal (03/27/23 8:30 AM) Temporal (03/27/23 6:41 AM) Dry Weight 105.8 kg (03/27/23 6:41 AM) 106.6 kg (03/26/23 9:12 AM) Weight Obtained Via Standing scale (03/27/23 6:41 AM) Patient/family stated (03/26/23 9:12 AM) Dry Weight Obtained Via Standing scale (03/27/23 6:41 AM) Patient/family stated (03/26/23 9:12 AM) Note * Jadon Crocker RN: PERFORM Event Display: Discharge/Transfer Note Hospital Authored Date: [id number] Nursing Discharge Note Entered On: 03/27/2023 10:23 EDT Performed On: 03/27/2023 10:21 EDT by Jadon Crocker RN Nursing Discharge Note 2 Discharge Time : 03/27/2023 10:21 EDT Discharge Level of Care at Discharge : Home/Intermediate/Foster Care Patient Left Unit Via : Wheelchair Patient Accompanied Off Unit with : Responsible adult DC Instructions Provided & Signed by Pt : Yes Patient Understands D/C Instructions : Yes Verbalized Understanding of D/C Plan By : Patient, Significant other Patient Instructions Discharge Signed : Yes Did Pt have Specialty Bed or Wound Vac : No Jadon Crocker RN - 03/27/2023 10:22 EDT * Jadon Crocker RN: PERFORM Event Display: Patient Education/Instruction Authored Date: [id number] Surgery Adult Discharge Instructions [address] [id number] Name: MICA BAÑUELOS : 1960?? Visit: 03/27/2023 06:19?? Current Date: 03/27/2023 08:24 ?? Account: [id number]?? Surgery Discharge Instructions We would like to thank you for allowing us to assist you with your healthcare needs. The following includes patient education materials and information regarding your injury/illness. Our entire staffstrives to provide an excellent experience for our patients and their families. PLEASE ENSURE YOU FOLLOW-UP PER THE INSTRUCTIONS BELOW! ?? YOUR OPINION IS IMPORTANT TO US! Please complete the survey you may receive by mail or email. Your feedback will be used to make improvements to the healthcare experiences of our patients and their families. Surveys are administered by [employer] ?? If further treatment with your primary care physician or another doctor is recommended, it is important for you to keep the appointment. Call your primary care physician or return to the Emergency Department immediately if your condition worsens, fails to improve, or new symptoms develop. If you need to find a doctor, you can call [facility] for a referral at [phone] or toll free at [phone] ([phone]) or log in to [email or web address].. ?? You can view and manage your care through the patient portal or by using a health care celestina of your choosing. [employer] is a website that allows you to securely view your medical information including your hospital discharge summary, office visit summaries, medications and follow-up visits. You can also request appointments, renew medications, and request access to your medical information using a health care celestina of your choosing, or just ask a question. You are entitled to know the individuals who participated in your treatment. This information is available within your medical record and will be provided upon your request. You can enroll at [email or web address] or register d uring your next office visit. You have been discharged from [facility], Patient Care Unit: [facility]??. If you have any questions regarding these instructions after you leave, please call us and we will be happy to assist you. [facility] Your Care Team Attending Physician Juan Davidson MD?? Discharging Providers Juan Davidson MD Reason for Admission BENIGN PROSTATIC HYPERPLASIA DS CS Primary Care Provider Gina Pacheco MD? Advance Directive Health Care Proxy on File No What to do next Instructions From Your Doctor ?? Orders? 03/27/23 7:31:00 EDT?? Prescriptions??, ??03/27/23 7:31:00 EDT?? Instructions from your Care Team ?? Patient to follow-up in office in 1 week. You Need to Schedule the Following Appointments Follow Up with??Juan Davidson Where: [address] [facility], [place] [address]- Business (1) Follow Up with??Gina Little When:??In 0 days Where: [address] [facility] [address] [place] [address]- Business (1) Discharge Medications MOLINAMICA LOCKWOOD :1960 Visit Date:03/27/2023 Medications: Please continue your medications until treatment is completed or stopped by your provider. You may resume your daily prescription medications. Discuss any questions related to medications with your provider. What How Much When Instructions Next Dose Unchanged Amlodipine (amLODIPine 5 mg oral tablet) 1 tab(s) Oral Daily in the morning Unchanged Aspirin (aspirin 81 mg oral tablet) 1 tab(s) Oral Daily Unchanged Famotidine 1 tab Oral Daily in the morning Unchanged Gabapentin (gabapentin 300 mg oral capsule) 1 capsule Oral 3 times a day Unchanged GlipiZIDE (glipiZIDE 5 mg oral tablet) 1 tab(s) Oral Daily in the morning Unchanged Insulin Glargine (insulin glargine 100 u/ ml subcutaneous solution) 8 unit(s) Subcutaneous Injection Daily at Bedtime Unchanged Metformin (metFORMIN 500 mg oral tablet) 1 tab(s) Oral Daily in the morning Unchanged Pravastatin 1 tab Oral Daily at Bedtime Unchanged Ropinirole 1 mg- 2tabs Oral Twice a day Unchanged Sildenafil (Viagra) 1 tab(s) Oral As needed for Other erectile dysfunction. ?? Unchanged Tamsulosin (tamsulosin 0.4 mg oral capsule) 1 capsule Oral Daily Unchanged Zolpidem 1 tab Oral Daily at Bedtime Allergies (NKA means No Known Allergies) NKA Education Materials Below is the list of Educational Leaflet Providered with your Discharge Instructions. Surgery Medical Daystay Surgical Overnight Discharge Instructions?? Valuables and Belongings I fully understand and agree that [facility] accepts no responsibility for all my personal property including clothing, toilet articles, radios, jewelry, dentures, hearing aids, rings, money, or any other property that is in my possession or is brought to me after admission. I understand certain valuables may be placed in a hospital safe for a short period of time. I understand that the hospital is not liable for loss or damage due to accident, fire, or other natural occurrence while said property is in the safe. I accept full responsibility for any personal property that I keep with me, and will not hold the hospital responsible in case of loss or disappearance. I acknowledge that i have been encouraged to send valuables and belongings home. ?? Review of Valuable and Belonging List: With patient, With family Date for Pt to Sign Valuables/Belongings: 03/27/23 06:41:00 ?? Valuables & Belongings ?? Clothes Electronic devices Jewelry Monetary Items Personal devices Miscellaneous Medications (Valuables) Valuables at Bedside Pants, Shirt, Shoes, Undergarments ? Cane ? Valuables Sent Home ? Other: medication bag Valuables Sent to Security ? Other Discharge Information ? Pulmonary Rehab Status?? Pulmonary Rehab Discharge Status?? Respiratory Rate: 18 br/min ? Common Emergency Awareness Tips IS IT A STROKE? Act FAST and Check for these signs: FACE Does the face look uneven? ARM Does one arm drift down? SPEECH Does their speech sound strange? TIME Call at any sign of stroke ?? Heart Attack Signs Chest discomfort: Most heart attacks involve discomfort in the center of the chest and lasts more than a few minutes, or goes away and comes back. It can feel like uncomfortable pressure, squeezing, fullness or pain. Discomfort in upper body: Symptoms can include pain or discomfort in one or both arms, back, neck, jaw or stomach. Shortness of breath: With or without discomfort. Other signs: Breaking out in a cold sweat, nausea, or lightheaded. Remember, MINUTES DO MATTER. If you experience any of these heart attack warning signs, call to get immediate medical attention! ?? Smoking can increase your chances of developing chronic health problems and can cause harmful effects to other family members in your house. If you smoke, you are strongly encouraged to quit. Please call [facility] [facility] at [phone] or 5-555-400Taptica ([phone]) or log in to [email or web address] for referrals to smoking cessation programs. ?? The National Suicide Prevention Hotline is available 04/05 if you or someone you know needs to find a reason to keep living. By calling 7-925-484-mwus (0246) you'll be connected to a skilled, trained counselor at a crisis center in your area. SURGERY DISCHARGE INSTRUCTIONS SIGNATURE PAGE MOLINAROSE GUZMÁNZEUSMICA Location:[facility] Registration Date and Time:03/27/2023 06:19 EDT Primary Care Physician: Kranthi Little MD, Gina Hayden, Attending Physician: Stuart MANCILLA, Juan Villanueva, I MICA BAÑUELOS, have received the above patient education materials/instructions and haveverbalized understanding. If ambulance or transport services are being used I further acknowledge being given a choice of service. ?? If you need to contact me, please call me at this number: . Patient/Auto Painter Name: Patient/Auto Painter Signature: Relationship to Patient: Witness Name/Signature: Date: * Jadon Crocker RN: PERFORM, SIGN, VERIFY Event Display: Patient Education Handout Authored Date: * Jadon Crocker RN: PERFORM Event Display: Patient Education Leaflets Authored Date: [id number] Surgery Medical Daystay Surgical Overnight Discharge Instructions ?? 295 Medical Daystay/Surgical Overnight Discharge Instructions ? Since your coordination and judgment may be altered by medication and/or anesthesia, a responsible adult must drive you home from the hospital. ? If you have received medication for pain or sedation while under our care, you should not drive, operate machinery, drink alcohol, or sign any legal documents for 24 hours.?? You should have someone with you at home tonight. ? Remain at home the day of discharge.?? You may be up and about unless otherwise instructed by your physician. ? You may resume your daily prescription medication schedule.?? Any depressant medication should be avoided for 24 hours unless otherwise instructed by your surgeon or anesthesiologist. ? Call your physician for a follow-up appointment.? If you experience unusual or severe pain not relied by your pain medication, excessive bleedingor drainage, persistent nausea and vomiting, excessive swelling or redness, foul odor from incisionsite or fever over 100.6F, you need to call your physician. ? A follow-up phone call by a nurse will be made the day after your procedure.?? If you have stayed with us over night, you will not be receiving a follow-up phone call. ? Nausea and vomiting are a common side effect of prescription pain medication.?? We recommend that pills are not taken on an empty stomach.?? While taking any prescription pain medication you should not drive or drink alcohol. ? Patient Care team information Care Team Personnel Name: iGna Pacheco MD Position: [facility] Outreach Member Role: PCP Address: Address: [address] [facility] [address] [place] [address]- [place] Care Team Related Persons Name: GINA HUSSEIN Address: home [address] [place] [address] Name: LIO GUZMÁN Address: home [address] [place] [address] Name: PRESLEY GATES Address: home [address] [place] [address]
--- OUTSIDE RECORDS SUMMARY | 2024-08-16 20:24 | XMS_ITS | Continuity of Care Document ---
Author Organization [facility] Address [address] [place] [address]- Care Team Providers Care Timekeeper Name Role Phone Allyssa MANCILLA, Rosario Primary Care Physician Unava ilable Encounter [facility] [place] Date(s): 03/09/22 - 03/10/[address] [address]- Encounter Diagnosis Back pain(Final) - 03/09/22 Discharge Disposition: A-D/C Home Attending Physician: Nidia Tom MD Admitting Physician: Nidia Tom MD Referring Physician: Not on Staff, Referring [...] gabapentin 300 mg oral capsule 300 mg, Capsule, By Mouth, Once, STAT, 03/10/22 7:01:00 EDT, Stop date 03/10/22 7:01:00 EDT Start Date: 03/10/22 Stop Date: 03/10/22 Status: Completed gabapentin 300 mg oral capsule 300 mg, 1, capsule, By Mouth, 3 times a day, # 270 capsule, Refills 0, Tot. Refills 0, Maintenance,03/10/22 8:51:00 EDT, Route to Pharmacy Electronically, [facility], Partial fill uponpatient request [...] tablet, By Mouth, Every 6 hours, PRN, for 3 days, # 12 tablet, Refills 0, Tot. Refills 0, Acute 03/13/22 8:51:00 EDT, as needed for pain, 03/10/22 8:51:00 EDT, Route to Pharmacy Electronically, [facility], Partial fill upon len... Start Date: 03/10/22 Stop Date: 03/13/22 Status: Ordered OxyCODONE IR Tablet 5 mg, Tablet, By Mouth, Once, STAT, 03/10/22 7:21:00 EDT, Stop date 03/10/22 7:21:00 EDT Start Date: 03/10/22 Stop Date: 03/10/22 Status: Completed Pravastatin 1 tab, By Mouth, Daily at [...] to oldest [Reference Range]: 1 2 3 Weight 111.36 kg (03/10/22 9:23 AM) 111.36 kg (03/10/22 7:32 AM) 111.36 kg (03/10/22 6:11 AM) Oxygen Saturation [94-100 %] 97 % (03/10/22 9:23 AM) 95 % (03/10/22 7:32 AM) 95 % (03/10/22 6:11 AM) Pulse Rate [55-90 bpm] 78 bpm (03/10/22 9:23 AM) 82 bpm (03/10/22 7:32 AM) 75 bpm (03/10/22 6:11 AM) Blood Pressure [90-138/55-84 mm Hg] 135/89mm Hg (03/10/22 9:23 AM) 145/82mm Hg *H* (03/10/22 7:32 AM) 154/95mm Hg *H* (03/10/22 6:11 AM) Respiratory Rate [16-30 br/min] 19 br/min (03/10/22 9:23 AM) 20 br/min (03/10/22 7:33 AM) 20 br/min (03/10/22 7:33 AM) Temperature [96.8-100.4 DegF] 98.0 DegF (03/10/22 7:32 AM) 97.5 DegF (03/10/22 6:11 AM) 97.6 DegF (03/10/22 3:16 AM) Mode of Delivery (Oxygen) Room air (03/10/22 9:23 AM) Room air (03/10/22 7:32 AM) Room air (03/10/22 6:11 AM) Blood pressure sites Arm, left (03/10/22 9:23 AM) Arm, left (03/10/22 7:32 AM) Arm, left (03/10/22 6:11 AM) Temperature Route Oral (03/10/22 7:32 AM) Oral (03/10/22 6:11 AM) Oral (03/10/22 3:16 AM) Dry Weight 111.36 kg (03/10/22 9:23 AM) 111.36 kg (03/10/22 7:32 AM) 111.36 kg (03/10/22 6:11 AM) Weight Obtained Via Patient/family state d (03/09/22 8:58 PM)
--- OUTSIDE RECORDS SUMMARY | 2024-08-16 20:24 | XMS_ITS | Continuity of Care Document ---
Author Organization [facility] [place] Address [address] [place] [address]- Care Team Providers Care Pocket And Pulley Machine Operator Name Role Phone Rosario Spivey MD Primary Care Physician Encounter [facility] Date(s): 11/04/23 - 12/31/23 [facility] [place] [address] [place] [address]- Attending Physician: Citlalli Kearney MD Allergies, Adverse Reactions, Alerts No Known [...] Outreach Member Role: PCP Address: Address: [address] [place], [place] [address] Name: Anna Christopher RN Position: S RN Member Role: Primary Care Nurse Name: Jude Briggs RN Position: [facility] ED RN W/OE and Tasks Member Role: Primary Care Nurse Name: Davina Alvarez RN Position: S RN Member Role: Primary Care Nurse Name: Juan J Solomon RN Position: [facility] RN Member Role: Primary Care Nurse Care Team Related Persons Name: GINA HUSSEIN Address: home [address], [place] Name: LIO GUZMÁN Address: home [address], [place] Name: PRESLEY GATES Address: [address] [place] [address]
--- OUTSIDE RECORDS SUMMARY | 2024-08-16 20:24 | XMS_ITS | Continuity of Care Document ---
Author Organization [facility] ter Address [address] [place] [address]- Care Team Providers Care Onsite Health Coach Name Role Phone Rosario Spivey MD Primary Care Physician En[place] [facility] [place] Date(s): 12/13/19 - 01/27/[address] [address]- [facility] Attending Physician: Manny Benites MD Allergies, Adverse Reactions, [...]
--- NOTE | 2024-08-16 20:43 | PHA.MEDREC ---
Addendum entered by Sharon Aleman RPh 08/16/24 21:12: Med rec was reviewed by [facility]. Original Note: Pharmacy Consult ? Medication Reconciliation Pharmacy has completed the medication reconciliation. Spoke to patient to confirm med list. Patient was in and out of sleep, very hard to understand do to mumbling his words. Patent was only able to confirm Zolpidem 10 mg , Metformin 500 mg, and Ropinirole 2 mg then feel asleep. Tried multiple time to call patients , however phone just rings a few times then just stopped, no voice mail just air. Utilized claims to confirm med list.
[2024-08-16 20:52] VITALS: BP 126/77; PULSE 70
[2024-08-16 21:02] VITALS: BP 122/73; PULSE 70; RESP 18; TEMP 36.4; O2SAT 94
[2024-08-16 21:05] VITALS: BP 122/73; PULSE 80; RESP 20; O2SAT 95
--- NOTE | 2024-08-16 21:09 | ED.GENADULT ---
HPI - General Adult General Chief complaint: Recheck/Abnormal Lab/Rx Stated complaint: Back pain Time Seen by Provider: 08/16/24 17:45 Source: patient Limitations: no limitations History of Present Illness ED Provider: Shira Flowers PA-C HPI narrative: 64-year-old male with a history of known degenerative changes of the lumbar spine now status post spinal stimulator, prior osteomyelitis of thoracic spine, fibromyalgia, Hypertension, hyperlipidemia, diabetes, heart failure with the EF of 40-50% ECHO 2023, prior CVA with right-sided residual weakness with subsequent gait instability, presents with worsening back pain. Over the past month, patient has been having worsening mid to low back pain. He had outpatient imaging the beginning of July, an MRI of the lumbar spine. The end of July on August 08, he had x-rays of the thoracic and lumbar spine. Patient was contacted today and told to come to the emergency department, that he had ?infection in his back?. Patient denies new weakness of lower extremities, saddle anesthesia, tingling in the lower extremities, urinary retention, no bowel incontinence. No fevers. The spinal stimulator is still intact. The battery from the control device is , his spouse is going back home to obtain the equipment in the event he requires additional MRI. Related Data Home Medications ?Medication ?Instructions ?Recorded ?Confirmed atorvastatin 80 mg tablet 80 mg PO DAILY 09/17/21 08/16/24 metformin 500 mg tablet 500 mg PO BID 09/17/21 08/16/24 clopidogrel 75 mg tablet 75 mg PO DAILY 06/14/24 08/16/24 dapagliflozin propanediol 10 mg 10 mg PO DAILY 06/14/24 08/16/24 tablet (Farxiga) docusate sodium 100 mg capsule 100 mg PO BID 06/14/24 08/16/24 famotidine 20 mg tablet 20 mg PO BID 06/14/24 08/16/24 fluticasone propionate 50 1 spray intranasal BID 06/14/24 07/27/24 mcg/actuation nasal spray,suspension oxycodone 5 mg tablet 5 mg PO Q12H PRN severe pain 06/14/24 08/16/24 sennosides 8.6 mg tablet (senna) 17.2 mg PO BEDTIME 06/14/24 07/27/24 tadalafil 20 mg tablet 20 mg PO 06/14/24 07/27/24 tamsulosin 0.4 mg capsule 0.4 mg PO DAILY 06/14/24 07/27/24 aspirin 81 mg tablet,delayed 81 mg PO DAILY 07/27/24 08/16/24 release (Adult Aspirin Regimen) naloxone 4 mg/actuation nasal spray intranasal PRN 07/27/24 07/27/24 ropinirole 2 mg tablet 2 mg PO BID 07/27/24 08/16/24 hydroxyzine pamoate 50 mg capsule 50 mg PO TID 08/16/24 08/16/24 zolpidem 10 mg tablet 10 mg PO BEDTIME PRN insomnia 08/16/24 08/16/24 Previous Rx's ?Medication ?Instructions ?Recorded lidocaine 5 % topical patch See Rx Instructions topical DAILY 06/14/24 30 days #30 ea pregabalin 50 mg capsule 50 mg PO BID pain 30 days #60 caps 06/14/24 Allergies Allergy/AdvReac Type Severity Reaction Status Date / Time No Known Allergies Allergy Verified 08/16/24 17:19 Review of Systems Review of Systems: Yes all other systems are reviewed and are negative Constitutional: Constitutional: Denies fatigue and Denies fever(s) Musculoskeletal: Musculoskeletal: Reports back pain Endocrine: Endocrine: Denies fatigue PMFSH Past Medical History Attestation statement: The following information was validated with the patient. Medical History (Updated 08/16/24 @ 20:52 by CRYSTAL Alfaro) Heart failure Ischemic stroke Balanitis Osteomyelitis Moderate episode of recurrent major depressive disorder Restless leg syndrome History of cocaine use Essential (primary) hypertension CKD (chronic kidney disease) Hx of exertional chest pain Dry eye Other hyperlipidemia Urinary incontinence Lumbar radiculopathy COPD (chronic obstructive pulmonary disease) Diabetes Elevated alanine aminotransferase (ALT) level History of hepatitis B Hepatitis B immune Obstructive sleep apnea Fibromyalgia Hepatitis A immune Cervical disc disease Metabolic syndrome Cardiovascular event risk Surgical History (Updated 07/27/24 @ 13:31 by Ami Perez CMA) Status post insertion of spinal cord stimulator Family History Family History (Updated 07/27/24 @ 13:34 by Ami ePrez CMA) Father Prostate cancer Heart problem Mother Heart attack DM2 (diabetes mellitus, type 2) Sister Stomach cancer Brother Alzheimer disease Social History Social History (Updated 07/27/24 @ 13:34 by Ami Perez CMA) Alcohol intake: current Alcohol intake frequency: does not drink Alcohol type: hard liquor Patient Tobacco Use Status: Current everyday Tobacco user Tobacco use type: Cigarette Cigarettes Per Day: 2 Advance Directives: No Advance Directives Information Provided: No Physical Exam ED Vital Signs: Vital Signs - 24 hr 08/16/24 17:17 08/16/24 18:36 08/16/24 20:52 Temperature 99.1 F 98.1 F Pulse Rate 94 74 70 Respiratory Rate 18 20 Blood Pressure 99/63 110/67 126/77 Pulse Oximetry 93 93 Oxygen Delivery Method Room Air Room Air 08/16/24 21:02 08/16/24 21:05 Temperature 97.5 F Pulse Rate 70 80 Respiratory Rate 18 20 Blood Pressure 122/73 122/73 Pulse Oximetry 94 95 Oxygen Delivery Method Room Air Room Air BMI result Body Mass Index 36.3 Const Other: Awake Orientation/consciousness: patient oriented x3 Resp Other: Nonlabored respiration Cardio Other: Normal peripheral perfusion Skin Other: Warm dry no rash Neuro Other: Antalgic gait walks with a cane General: patient oriented x3, no focal motor deficits and CN's II-XI intact bilaterally Extrem Other: Strength is equal in both lower extremities, sensation is intact, Psych Other: Calm cooperative Course Reevaluation(s) Reevaluation #1: Reassessed the patient, he is not hypoxic, he is lying flat resting comfortably, his pressures have stabilized after a little over 1 L of fluid, the additional 2 L he will be discontinued as they are not warranted Time: 21:37 Medications Administered Discontinued Medications Generic Name Dose Route Start Last Admin Trade Name Freq PRN Reason Stop Dose Admin Piperacillin Sod/Tazobactam 50 mls @ 100 mls/hr 08/16/24 17:56 08/16/24 18:36 Sod 3.375 gm/ Sodium Chloride IV 08/16/24 18:25 Infused ONCE ONE Infusion Sodium Chloride 3,061.74 mls @ 3,061.74 mls/hr 08/16/24 18:00 08/16/24 20:49 Ns 30 ml/kg infuse over 1 hr (3061.74 ml) 08/16/24 18:59 Infused IV Infusion .Q1H STA Vancomycin HCl 2,000 mg in 500 mls @ 250 mls/hr 08/16/24 19:00 08/16/24 20:36 Vancomycin/Ns IV 08/16/24 20:59 Infused ONCE ONE Infusion Ketorolac Tromethamine 15 mg 08/16/24 18:00 08/16/24 18:16 Ketorolac Tromethamine 15 Mg/Ml Vial IVPUSH 08/16/24 18:01 15 mg ONCE ONE Administration Morphine Sulfate 8 mg 08/16/24 18:00 08/16/24 18:17 Morphine Sulfate 10 Mg/Ml Cartridge IVPUSH 08/16/24 18:01 8 mg ONCE ONE Administration Protocol Medical Decision Making Medical Decision Making [facility] Narrative: 64-year-old male with a history of known degenerative changes of the lumbar spine now status post spinal stimulator, prior osteomyelitis of thoracic spine, fibromyalgia, Hypertension, hyperlipidemia, diabetes, heart failure with the EF of 40-50% ECHO 2023, prior CVA with right-sided residual weakness with subsequent gait instability, presents with worsening back pain. Over the past month, patient has been having worsening mid to low back pain. He had outpatient imaging the beginning of July, an MRI of the lumbar spine. The end of July on August 08, he had x-rays of the thoracic and lumbar spine. Patient was contacted today and told to come to the emergency department, that he had ?infection in his back?. Patient denies new weakness of lower extremities, saddle anesthesia, tingling in the lower extremities, urinary retention, no bowel incontinence. No fevers. The spinal stimulator is still intact. The battery from the control device is , his spouse is going back home to obtain the equipment in the event he requires additional MRI. Problem: Vascular disease, prior osteomyelitis, chronic back pain History: Per patient and his spouse I have considered the following differential diagnoses: Cauda equina, osteomyelitis, epidural abscess, sepsis Plan: Patient was informed today that he has osteomyelitis on imaging that was obtained as an outpatient on August 08. The beginning of July he also had an MRI of the lumbar spine. The imaging that I can see in the system is not completed, I need to call the Radiology service for them to read the imaging marcin. Screening labs including inflammatory markers blood cultures and lactic acid were obtained from triage. I am starting empiric vancomycin, Zosyn. The patient's pressures are currently soft and he has a low-grade temp. I am considering sepsis. Adding weight based IV fluid, given the heart failure history I will reassess him between to make sure he does not become volume overloaded. Giving Toradol for the low-grade temp and analgesia, and morphine for pain. I have independently reviewed the following tests: Labs: No leukocytosis, not anemic, inflammatory markers are not elevated which is odd, no electrolyte abnormality, lactic acid 2 X-ray of the thoracic spine: from 08/08/2024 XR/XR thoracic spine 3V IMPRESSION: 1. Neurostimulator device leads looped upon itself at the level of T12-L1 and terminate overlying the lower thoracic spine at the level of T9-T10. 2. Findings concerning for discitis/osteomyelitis at the level of L4-L5 are better visualized on recent MRI. 3. No evidence of acute compression deformity or subluxation. 4. Moderate multilevel thoracolumbar spondylosis with various degrees of neural foraminal encroachment and central canal stenosis. Electronically signed by: Kaylie De La Cruz MD 08/16/2024 06:14 PM EST RP X-ray lumbar spine: from 08/08/2024 XR/XR lumbar spine 2-3V IMPRESSION: 1. Neurostimulator device leads looped upon itself at the level of T12-L1 and terminate overlying the lower thoracic spine at the level of T9-T10. 2. Findings concerning for discitis/osteomyelitis at the level of L4-L5 are better visualized on recent MRI. 3. No evidence of acute compression deformity or subluxation. 4. Moderate multilevel thoracolumbar spondylosis with various degrees of neural foraminal encroachment and central canal stenosis. Electronically signed by: Kaylie De La Cruz MD 08/16/2024 06:14 PM EST RP Lab Data 08/16/24 17:33 08/16/24 17:33 Labs: Lab Results 08/16/24 08/16/24 Range/Units 15:39 17:33 WBC 7.9 (4.8-10.8) X10*3/uL RBC 5.35 (4.60-5.80) X10*6/uL Hgb 16.5 (14.0-18.0) g/dl Hct 47.4 (42.0-52.0) % MCV 88.6 (80.0-98.0) fL MCH 30.8 (27.0-33.0) pg MCHC 34.8 (31.0-36.0) g/dl RDW 12.4 (11.0-16.0) % Plt Count 156 L (160-400) X10*3/uL MPV 10.1 (9.4-12.4) fL Immature Gran % (Auto) 0.4 (0.0-0.4) % Neut % (Auto) 51.9 (45-73) % Lymph % (Auto) 38.8 (20-40) % [place] % (Auto) 5.9 (2-11) % Eos % (Auto) 2.4 (0-4) % Baso % (Auto) 0.6 (0-2) % Lymph # (Auto) 3.1 (1.2-4.9) X10*3/uL [place] # (Auto) 0.5 (0.1-1.2) X10*3/uL Eos # (Auto) 0.2 (0.0-0.4) X10*3/uL Baso # (Auto) 0.1 (0.0-0.2) X10*3/uL Abs Immat Gran (auto) 0.03 (0.00-0.03) X10*3/uL Absolute Neuts (auto) 4.1 (2.0-8.3) x10*3/uL Absolute Nucleated RBC 0.000 (0.0-0.012) X10*3/uL Nucleated RBC % (auto) 0.0 (0.0-0.2) /100WBC ESR 2 (0-15) MM/HR Sodium 140 (135-145) mmol/L Potassium 4.0 (3.3-5.1) mmol/L Chloride 105 (96-108) mmol/L Carbon Dioxide 24 (22-29) mmol/L Anion Gap 15 (12-20) BUN 17 H (9-16) mg/dL Creatinine 1.15 (0.5-1.4) mg/dL Estim Creat Clear Calc 73.5 Estimated GFR > 60 Random Glucose 202 H (60-115) mg/dL Lactic Acid 2.0 (0.5-2.0) mmol/L Calcium 9.8 (8.4-10.2) mg/dL Total Bilirubin 0.5 (0.0-1.0) mg/dL AST 21 (5-37) U/L ALT 20 (0-40) U/L Alkaline Phosphatase 77 (39-117) U/L C-Reactive Protein < 0.10 (< or = 0.50) mg/dL Total Protein 7.1 (6.5-8.0) g/dL Albumin 4.1 (3.5-5.0) g/dL Urine Color Yellow Urine Appearance Clear Urine pH 6.0 (5.0-9.0) Ur Specific [employer] >= 1.030 H (1.005-1.025) Urine Protein Negative (Neg-Trace) mg/dL Urine Glucose (UA) >=1000 H (Negative) mg/dL Urine Ketones Negative (Negative) mg/dL Urine Blood Negative (Negative) Urine Nitrite Negative (Negative) Ur Leukocyte Esterase Negative (Negative) Urine RBC 0-2 (0-2) /HPF Urine WBC 6-10 H (0-5) /HPF Ur Squamous Epith Cells 0-2 (0-2) /HPF Urine Bacteria None Seen (None Seen) Hyaline Casts 0-2 (0-2) /LPF Discharge Plan Discharge Clinical Impression: Osteomyelitis of thoracic spine, Osteomyelitis of lumbar spine Patient Disposition: Admitted As Inpatient Print Language: Austrian
[2024-08-16 23:28] VITALS: BP 116/79; PULSE 72; RESP 18; TEMP 36.7; O2SAT 96
--- NOTE | 2024-08-16 23:29 | MHC.EDTECH ---
This tech took over care of patient at 2300,rounded and introduced self to patient,vitals taken,patient is resting quietly watching TV,appears to be comfortable,hospitalist at bedside at this time,call pollard in reach
--- NOTE | 2024-08-17 00:07 | PM.IMHP ---
History of Present Illness Date of Service: 08/17/24 Attending physician on admission: Anoop Palmer Chief Complaint: Worsening back pain Javier Benjamin is a 64 years old man with past medical history significant for chronic back pain (f/u pain clinic) fibromyalgia, obesity, RADHA, COPD, hyperlipidemia, CKD and restless leg syndrome presents to the emergency department complaining of worsening lower back pain associated with worsening walking difficulty. Patient reports urinary incontinence which is offer him. Denied numbness to the groin. Patient underwent a lumbar MRI on July 19 of this year that showed findings concerning for diskitis/osteomyelitis with phlegmon/abscess in the anterior lateral periventricular compartment of L4-5 with no epidural abscess. Patient stated that no one called him to notify this result and he is not currently on any antibiotic therapy. Patient arrived to the emergency department today around 5 pm. Patient denied any headache, palpitations, shortness on breath, nausea or vomiting. He did not report any acute gastrointestinal or cardiopulmonary symptoms. In the ED, he was found to have normal vital signs. Blood workup showed no leukocytosis. There is no lactic acidosis. CRP and ESR are normal. Urinalysis showed WBC 2-10 but negative nitrites or leukocyte steroids. Lumbar x-ray showed neurostimulator device and finding concerning of the diskitis/osteomyelitis at the level L4-L5. No other imaging obtained. ED tx: Zosyn 3.375 g IV, normal saline 3 L, ketorolac 15 mg IV, morphine 8 mg IV, vancomycin 2 g Review of Systems Review of Systems: All 12 systems were reviewed and normal except as noted in HPI. [facility] Medical History (Updated 08/17/24 @ 00:49 by Anoop Palmer MD) Heart failure Ischemic stroke Balanitis Osteomyelitis Moderate episode of recurrent major depressive disorder Restless leg syndrome History of cocaine use Essential (primary) hypertension CKD (chronic kidney disease) Hx of exertional chest pain Dry eye Other hyperlipidemia Urinary incontinence Lumbar radiculopathy COPD (chronic obstructive pulmonary disease) Diabetes Elevated alanine aminotransferase (ALT) level History of hepatitis B Hepatitis B immune Obstructive sleep apnea Fibromyalgia Hepatitis A immune Cervical disc disease Metabolic syndrome Cardiovascular event risk Family History (Updated 07/27/24 @ 13:34 by Ami Perez CMA) Father Prostate cancer Heart problem Mother Heart attack DM2 (diabetes mellitus, type 2) Sister Stomach cancer Brother Alzheimer disease Surgical History (Updated 07/27/24 @ 13:31 by Ami Perez CMA) Status post insertion of spinal cord stimulator Social History (Updated 07/27/24 @ 13:34 by Ami Perez CMA) Alcohol intake: current Alcohol intake frequency: does not drink Alcohol type: hard liquor Patient Tobacco Use Status: Current everyday Tobacco user Tobacco use type: Cigarette Cigarettes Per Day: 2 Advance Directives: No Advance Directives Information Provided: No Meds Allergies Allergy/AdvReac Type Severity Reaction Status Date / Time No Known Allergies Allergy Verified 08/16/24 17:19 Home Medications ?Medication ?Instructions ?Recorded ?Confirmed ?Last Taken ?Type atorvastatin 80 mg tablet 80 mg PO DAILY 09/17/21 08/16/24 Unknown History metformin 500 mg tablet 500 mg PO BID 09/17/21 08/16/24 Unknown History clopidogrel 75 mg tablet 75 mg PO DAILY 06/14/24 08/16/24 Unknown History dapagliflozin propanediol 10 mg 10 mg PO DAILY 06/14/24 08/16/24 Unknown History tablet (Farxiga) docusate sodium 100 mg capsule 100 mg PO BID 06/14/24 08/16/24 Unknown History famotidine 20 mg tablet 20 mg PO BID 06/14/24 08/16/24 Unknown History fluticasone propionate 50 1 spray intranasal BID 06/14/24 07/27/24 Unknown History mcg/actuation nasal spray,suspension oxycodone 5 mg tablet 5 mg PO Q12H PRN severe pain 06/14/24 08/16/24 Unknown History sennosides 8.6 mg tablet (senna) 17.2 mg PO BEDTIME 06/14/24 07/27/24 Unknown History tadalafil 20 mg tablet 20 mg PO 06/14/24 07/27/24 Unknown History tamsulosin 0.4 mg capsule 0.4 mg PO DAILY 06/14/24 07/27/24 Unknown History aspirin 81 mg tablet,delayed 81 mg PO DAILY 07/27/24 08/16/24 Unknown History release (Adult Aspirin Regimen) naloxone 4 mg/actuation nasal spray intranasal PRN 07/27/24 07/27/24 Unknown History ropinirole 2 mg tablet 2 mg PO BID 07/27/24 08/16/24 Unknown History hydroxyzine pamoate 50 mg capsule 50 mg PO TID 08/16/24 08/16/24 Unknown History zolpidem 10 mg tablet 10 mg PO BEDTIME PRN insomnia 08/16/24 08/16/24 Unknown History Physical Exam Vital Signs and Narrative: Vital Signs: Last Vital Signs Temp 98.0 F 08/16/24 23:28 Pulse 72 08/16/24 23:28 Resp 18 08/16/24 23:28 BP 116/79 08/16/24 23:28 Pulse Ox 96 08/16/24 23:28 O2 Del Method Room Air 08/16/24 23:28 BMI result Body Mass Index 36.3 Constitutional - Awake and Alert, No apparent distress. Slurred speech (old). Cooperative. Looks uncomfortable due to pain. Eyes - PERRLA, EOMI Cardiovascular - S1S2, RRR, No edema Respiratory - Normal lung expansion, Normal respiratory effort, No respiratory distress, CTA bilaterally Gastrointestinal - NT / ND; +BS; No rebound or guarding - No CVA tenderness Extremities - no calf tenderness bilaterally, no swelling Musculoskeletal - Lower back pain Skin - Warm/Dry Neurological - Alert & oriented x3. Slurred speech. Weakness to the lower extremities. Psychological - Appropriate affect Results Labs 08/16/24 17:33 08/16/24 17:33 Labs: Laboratory Results - last 24 hr 08/16/24 08/16/24 15:39 17:33 MCV 88.6 MCH 30.8 MCHC 34.8 RDW 12.4 Plt Count 156 L MPV 10.1 Immature Gran % (Auto) 0.4 Neut % (Auto) 51.9 Lymph % (Auto) 38.8 [place] % (Auto) 5.9 Eos % (Auto) 2.4 Baso % (Auto) 0.6 Lymph # (Auto) 3.1 [place] # (Auto) 0.5 Eos # (Auto) 0.2 Baso # (Auto) 0.1 Abs Immat Gran (auto) 0.03 Absolute Neuts (auto) 4.1 Absolute Nucleated RBC 0.000 Nucleated RBC % (auto) 0.0 ESR 2 Anion Gap 15 Estim Creat Clear Calc 73.5 Estimated GFR > 60 Random Glucose 202 H Lactic Acid 2.0 Calcium 9.8 Total Bilirubin 0.5 AST 21 ALT 20 Alkaline Phosphatase 77 C-Reactive Protein < 0.10 Total Protein 7.1 Albumin 4.1 Urine Color Yellow Urine Appearance Clear Urine pH 6.0 Ur Specific [place] >= 1.030 H Urine Protein Negative Urine Glucose (UA) >=1000 H Urine Ketones Negative Urine Blood Negative Urine Nitrite Negative Ur Leukocyte Esterase Negative Urine RBC 0-2 Urine WBC 6-10 H Ur Squamous Epith Cells 0-2 Urine Bacteria None Seen Hyaline Casts 0-2 Assessment and Plan (1) Low back pain: Qualifiers: Chronicity: acute Back pain laterality: midline Sciatica presence: unspecified whether sciatica present Qualified Code(s): M54.50 - Low back pain, unspecified Status: Acute (2) Osteomyelitis of lumbar spine: Status: Acute Plan Javier Benjamin is a 64 y/o man admitted with: Acute on chronic back pain, likely secondary to diskitis and osteomyelitis. Get lumbar MRI HUGO. Admit to hospitalist service for pain control with Dilaudid IV. Continue empiric IV antibiotic therapy with vancomycin and Zosyn. Hyperlipidemia. Continue statin. RADHA. Nocturnal CPAP if tolerated. RLS. Continue ropinirole. Type 2 diabetes mellitus. Continue morphine. Continue diabetic diet. BG checks before meals at bedtime. Insulin sliding scale. COPD. Currently controlled. Obesity, BMI 36.3 kg/m2. Weight loss advised. DVT prophylaxis: SCDs Code status: Full Patient will need hospitalization for at least 2 midnights for severe back pain possible secondary osteomyelitis management with IV antibiotics/ Quality Stroke Does the patient have a stroke diagnosis?: No VTE Prior VTE?: No VTE Risk Level:: Medical - moderate - high VTE Device Contraindication: N/A - Device Ordered VTE Drug Contraindication: Treatment Not Indicated
[2024-08-17] MEDS: rOPINIRole HCL 2 MG TABLET PO ×3 (01:48→19:36)
[2024-08-17] MEDS: Piperacillin Sodium/Tazobactam 3.375 GM in 0.9 % Sodium Chloride 50 ML IV ×3 (01:48→12:41)
[2024-08-17 02:00] VITALS: BP 115/65; PULSE 66; RESP 18; TEMP 36.5; O2SAT 95
--- NOTE | 2024-08-17 02:15 | MHC.EDTECH ---
Hourly rounds and vitals completed,patient is resting quietly,call pollard in reach
[2024-08-17] MEDS: HYDROmorphone HCl 0.5 MG/0.5 ML SYRINGE IVPUSH ×4 (03:57→19:37)
[2024-08-17 05:12] LABS: Basophils Absolute Auto 0.1 X10*3/uL (0.0-0.2); Basophils Percent Auto 0.7 % (0-2); Eosinophils Absolute Auto 0.2 X10*3/uL (0.0-0.4); Hematocrit 44.1 % (42.0-52.0); Imm Gran Abs Auto 0.02 X10*3/uL (0.00-0.03); Imm Gran Pct Auto 0.3 % (0.0-0.4); Lymphocytes Absolute Auto 2.9 X10*3/uL (1.2-4.9); Lymphocytes Percent Auto 41.3 % (20-40); MANUAL DIFF FLAG SCAN; Mean Corpuscular Hemoglobin 30.6 pg (27.0-33.0); Mean Platelet Volume 10.8 fL (9.4-12.4); Monocytes Absolute Auto 0.5 X10*3/uL (0.1-1.2); Monocytes Percent Auto 7.5 % (2-11); Neutrophils Absolute Auto 3.3 x10*3/uL (2.0-8.3); Neutrophils Percent Auto 47.2 % (45-73); PLT CLUMP 1; Red Cell Distribution Width 12.5 % (11.0-16.0); SCAN SMEAR FLAG 1
[2024-08-17 05:13] LABS: Platelet Count 132 X10*3/uL (160-400)
[2024-08-17 05:24] LABS: Anion Gap 11 (12-20); Blood Urea Nitrogen 15 mg/dL (9-16); C Reactive Protein < 0.10 mg/dL (< or = 0.50); Calcium 8.3 mg/dL (8.4-10.2); Carbon Dioxide 19 mmol/L (22-29); Chloride 112 mmol/L (96-108); Estimated Glomerular Filt Rate > 60; Glucose Random 113 mg/dL (60-115); Potassium 4.7 mmol/L (3.3-5.1); Sodium 137 mmol/L (135-145)
[2024-08-17 05:36] LABS: SLIDE REVIEW VERIFIED
[2024-08-17 05:39] VITALS: BP 112/79; PULSE 73; RESP 16; TEMP 36.5; O2SAT 96
[2024-08-17 06:28] LABS: Glucose, Whole Blood 112 mg/dL (60-115)
--- NOTE | 2024-08-17 06:29 | MHC.EDTECH ---
POC taken and is 112,Coral JUNE aware
[2024-08-17 07:23] LABS: Glucose, Whole Blood 111 mg/dL (60-115)
--- NOTE | 2024-08-17 07:26 | PHA.PROG ---
Admission Date/Time: August 17, 2024 00:08 Indication: Bone & Joint Weight in k.058 kg Adjusted body weight in K.103 Serum Creatinine - Last 168 Hours 08/16/24 08/17/24 17:33 04:45 Creatinine 1.15 0.95 Estimated CrCl and GFR - Last 168 Hours 08/16/24 08/17/24 17:33 04:45 Estim Creat Clear Calc 73.5 89.0 Estimated GFR > 60 > 60 Vancomycin Loading Dose: 2,000 mg Current Vancomycin Dosing Regimen: 1,250 mg q12h Vancomycin Monitoring using AUC goal of 400 - 600 range with trough as surrogate marker: 567, predicted trough 18.5 Date and Time for next Vancomycin Level to be drawn: 08/18 @ 1700 Pharmacist Comments on Vancomycin Plan: Vancomycin dosing will take advantage of [employer] as a clinical decision support tool that uses Bayesian modeling to calculate individual patient's pharmacokinetic parameters and forecast the patient's drug concentration time course with the target goal AUC 24 range of 400 - 600 mg/L/hr.
[2024-08-17] MEDS: Aspirin Enteric Coated 81 MG TABLET.DR PO (07:47)
[2024-08-17] MEDS: Atorvastatin Calcium 80 MG TABLET PO (07:47)
[2024-08-17] MEDS: metFORMIN HCl 500 MG TABLET PO (07:47)
[2024-08-17] MEDS: hydrOXYzine HCL 50 MG TABLET PO ×3 (07:47→19:36)
[2024-08-17] MEDS: Famotidine 20 MG TABLET PO ×2 (07:47→19:36)
[2024-08-17] MEDS: Docusate Sodium 100 MG CAPSULE PO ×2 (07:47→19:37)
[2024-08-17] MEDS: Clopidogrel Bisulfate 75 MG TABLET PO (07:47)
[2024-08-17] MEDS: vancomycin HCL 1,250 MG in 0.9 % Sodium Chloride 250 ML 166.67 MG IV ×2 (07:48→19:05)
[2024-08-17 12:49] LABS: Glucose, Whole Blood 93 mg/dL (60-115)
--- NOTE | 2024-08-17 13:01 | PC.NURSE ---
When starting IV abt patient reporting left wrist pain. IV removed. 22g placed in top of patients right hand
[2024-08-17 13:46] VITALS: BMI 37.9
[2024-08-17 14:19] VITALS: BP 143/72; PULSE 65; RESP 20; TEMP 36.6; O2SAT 96
--- NOTE | 2024-08-17 14:50 | PM.EVENT ---
Event Note Date of Service: 08/17/24 Event Note: 64 y/o man admitted with back pain and abnormal MRI Feels back pain is better with pain medications, denies fever, no chills Acute on chronic back pain, likely secondary to diskitis and osteomyelitis. Continue pain control with Dilaudid IV. Continue iv vancomycin started on and start IV ceftriaxone as per ID recommendation and DC Zosyn. Id recommend pain management consultation for removal of stimulator placed by Dr. Michel from [place] Hold Plavix Hyperlipidemia. Continue statin. RADHA. Nocturnal CPAP RLS. Continue ropinirole. Type 2 diabetes mellitus. Continue diabetic diet, will hold metformin and Farxiga, add insulin sliding scale. History of CVA will hold Plavix continue aspirin COPD. No acute exacerbation noted Class 2 Obesity, BMI 36.3 kg/m2. Weight loss advised. DVT prophylaxis: SCDs Code status: Cook Cold Meat Spent With Patient Time: Total time managing care of this patient today ____ minutes.
[2024-08-17] MEDS: cefTRIAXone sodium 2 GM VIAL IVPUSH (15:28)
[2024-08-17 15:29] VITALS: RESP 18
[2024-08-17 16:00] VITALS: BP 140/72; PULSE 66; RESP 20; TEMP 36.7; O2SAT 96
[2024-08-17] MEDS: 0.9 % Sodium Chloride Flush 3 ML SYRINGE IVFLUSH ×2 (16:36→19:41)
[2024-08-17 16:41] LABS: Glucose, Whole Blood 172 mg/dL (60-115)
[2024-08-17] MEDS: iohexoL 350 MG/ML 100 ML INFUS..BTL IV (17:54)
[2024-08-17] MEDS: Insulin Lispro 100 UNIT/ML 3 ML VIAL SUBCUT (17:56)
[2024-08-17 19:24] VITALS: BP 144/72; PULSE 77; RESP 18; TEMP 37.1; O2SAT 96
[2024-08-17 20:06] LABS: Glucose, Whole Blood 101 mg/dL (60-115)
[2024-08-18 03:47] VITALS: BP 129/78; PULSE 86; RESP 19; TEMP 36.7; O2SAT 96
[2024-08-18] MEDS: HYDROmorphone HCl 0.5 MG/0.5 ML SYRINGE IVPUSH ×4 (04:34→19:54)
[2024-08-18] MEDS: vancomycin HCL 1,250 MG in 0.9 % Sodium Chloride 250 ML 166.67 MG IV ×2 (06:36→18:14)
[2024-08-18 07:38] LABS: Estimated Glomerular Filt Rate > 60
[2024-08-18 07:53] LABS: Glucose, Whole Blood 105 mg/dL (60-115)
[2024-08-18 08:08] VITALS: BP 138/84; PULSE 77; RESP 18; TEMP 36.1; O2SAT 95
[2024-08-18] MEDS: Docusate Sodium 100 MG CAPSULE PO ×2 (09:06→19:55)
[2024-08-18] MEDS: Aspirin Enteric Coated 81 MG TABLET.DR PO (09:07)
[2024-08-18] MEDS: hydrOXYzine HCL 50 MG TABLET PO ×3 (09:07→19:54)
[2024-08-18] MEDS: Famotidine 20 MG TABLET PO ×2 (09:07→19:55)
[2024-08-18] MEDS: Atorvastatin Calcium 80 MG TABLET PO (09:07)
[2024-08-18] MEDS: 0.9 % Sodium Chloride Flush 3 ML SYRINGE IVFLUSH ×2 (09:08→19:53)
[2024-08-18] MEDS: rOPINIRole HCL 2 MG TABLET 4 MG PO (11:21)
[2024-08-18 11:50] LABS: Glucose, Whole Blood 140 mg/dL (60-115)
--- NOTE | 2024-08-18 12:58 | MHC.CM.PN ---
IMM 08/18/24 DX LUMBAR OSTEO/wound stimulator Patient lives with S.O. He uses a cane for unsteady gait. A new HCP has been documented. DP Home vs STR. CM will follow to address needs at discharge.
--- NOTE | 2024-08-18 13:29 | P.PNIM_ITS ---
Subjective Subjective Date of Service: 08/18/24 Interval History: c/o 7/10 lower back pain, no saddle anesthesia, no bowel or bladder incontinence or urine retention no fever Review of Systems Review of Systems: Yes all other systems are reviewed and are negative Physical Exam 2 Vital Signs: Vital Signs: Last Vital Signs Temp 97 F 08/18/24 08:08 Pulse 77 08/18/24 08:08 Resp 18 08/18/24 08:08 BP 138/84 08/18/24 08:08 Pulse Ox 95 08/18/24 08:08 O2 Del Method Room Air 08/18/24 08:08 BMI result Body Mass Index 37.9 Gen: in no acute distress HEENT: sclera anicteric, moist mucus membranes Neck: supple Lungs: clear to auscultation bilaterally Heart: regular rate and rhythm, no murmurs Abd: soft, non-tender, non-distended Back: midline lower lumbar tenderness Ext: no edema Skin: warm/well-perfused Neuro: alert and oriented x3, no focal findings Psych: appropriate affect Objective Data Active Medications Acetaminophen (Acetaminophen 325 Mg Tablet) 975 mg PO Q6H PRN PRN Reason: Pain, Mild (Pain Scale 1-3), fever or headache Aspirin (Aspirin Enteric Coated 81 Mg Tablet.Dr) 81 mg PO DAILY [facility] Last Admin: 08/18/24 09:07 Dose: 81 mg Documented By: ARIANA Atorvastatin Calcium (Atorvastatin Calcium 80 Mg Tablet) 80 mg PO DAILY [facility] Last Admin: 08/18/24 09:07 Dose: 80 mg Documented By: ARIANA Ceftriaxone Sodium (Ceftriaxone Sodium 2 Gm Vial) 2 gm IVPUSH Q24H [facility] Last Admin: 08/17/24 15:28 Dose: 2 gm Documented By: LENCHO Docusate Sodium (Docusate Sodium 100 Mg Capsule) 100 mg PO BID [facility] Last Admin: 08/18/24 09:06 Dose: 100 mg Documented By: ARIANA Famotidine (Famotidine 20 Mg Tablet) 20 mg PO BID [facility] Last Admin: 08/18/24 09:07 Dose: 20 mg Documented By: ARIANA Glucose (Glucose Gel 15 Gm Gel..Gram.) 15 gm PO Q15M PRN; Protocol PRN Reason: per Hypoglycemia Standing Ord. Hydromorphone HCl (Hydromorphone Hcl 0.5 Mg/0.5 Ml Syringe) 0.5 mg IVPUSH Q6H [facility]; Protocol Last Admin: 08/18/24 09:08 Dose: 0.5 mg Documented By: ARIANA Hydroxyzine HCl (Hydroxyzine Hcl 50 Mg Tablet) 50 mg PO TID [facility] Last Admin: 08/18/24 09:07 Dose: 50 mg Documented By: ARIANA Dextrose (D10) 250 mls @ 750 mls/hr IV Q15M PRN; Protocol PRN Reason: per Hypoglycemia Standing Ord. Vancomycin HCl 1,250 mg/ (Sodium Chloride) 250 mls @ 166.667 mls/hr IV Q12H [facility] Last Infusion: 08/18/24 08:18 Dose: Infused Documented By: ARIANA Insulin Human Lispro (Insulin Lispro 100 Unit/Ml 3 Ml Vial) 0 unit SUBCUT QIDACHS [facility]; Protocol Last Admin: 08/18/24 11:58 Dose: Not Given Documented By: ARIANA Non-Admin Reason: No Insulin Coverage Melatonin (Melatonin 3 Mg Tablet) 6 mg PO BEDTIME PRN PRN Reason: Insomnia Pharmacy Consult (Consult Rx Vancomycin Dosing) 1 each MISCELLANE DAILY PRN PRN Reason: Consult order Ropinirole HCl (Ropinirole Hcl 2 Mg Tablet) 2 mg PO BEDTIME BRUNA Ropinirole HCl (Ropinirole Hcl 2 Mg Tablet) 4 mg PO DAILY@0900 [facility] Sodium Chloride (0.9 % Sodium Chloride Flush 3 Ml Syringe) 3 ml IVFLUSH QSHIFT [facility] Last Admin: 08/18/24 09:08 Dose: 3 ml Documented By: ARIANA Labs 08/17/24 04:45 08/18/24 05:32 Labs: Laboratory Results - last 24 hr 08/17/24 08/17/24 08/18/24 16:22 20:02 05:32 Estim Creat Clear Calc 95.0 Estimated GFR > 60 POC Glucose 172 H 101 08/18/24 08/18/24 07:47 11:39 Estim Creat Clear Calc Estimated GFR POC Glucose 105 140 H Microbiology Microbiology Results: Microbiology 08/16/24 18:15 Urine Culture - Final Urine clean catch - Clean Catch Midstream 08/16/24 17:34 Blood Culture - Preliminary Blood - Venous No growth after 24 hours. 08/16/24 17:34 Blood Culture - Preliminary Blood - Venous No growth after 24 hours. Assessment and Plan (1) Low back pain: Status: Acute Plan d2 64yo M with hx lumbar DDD, lumbar stenosis, lumbar radiculopathy, cervcial disk disorder, prior group B streptococcal osteomyelitis, ischemic CVA, fibromyalgia, RADHA, DM2, RLS; [employer] spinal stimulator at T12; admitted with worsening lower back pain causing difficulty walking. He was seen by [facility] 06/14/24 and had a lumbar MRI 07/19/24 that showed findings concerning for diskitis/osteomyelitis with phlegmon/abscess in anterior lateral periventricular compartment of L4-L5. However, ESR and CRP are completely normal and contrast CT of L-spine shows extensive degenerative changes with subchondral erosions at the level of L5-S1; degenerative changes at the level of L5-S1; no evidence of abscess formation. - Discussed with IR, no drainable collection noted on CT - Discussed with Pain Mgmt; if pt would like spinal stimuator removed, it should be done by Neurosurgery [it was placed by Dr Benites at [facility]] - Discussed with Radiology [Dr Mendoza], if concern for diskitis/osteomyelitis recommend repeating MRI with/without contrast - ID consult pending; remains on vancomycin + ceftriaxone at this time - pain control with IV Dilaudid Other issues HLD CVA - continue statin RADHA - CPAP RLS -ropinirole DM2 - angle-dose lispro VTE ppx - enoxaparin dispo - TBD In my clinical judgment, the patient requires continued inpatient hospitalization for the following reasons: question of osteomyelitis Total time managing care of this patient today: 35 minutes. Quality Stroke Does the patient have a stroke diagnosis?: No VTE Prior VTE?: No VTE Risk Level:: Medical - moderate - high VTE Device Contraindication: N/A - Device Ordered VTE Drug Contraindication: Treatment Not Indicated
[2024-08-18] MEDS: cefTRIAXone sodium 2 GM VIAL IVPUSH (14:59)
[2024-08-18] MEDS: Enoxaparin Sodium 40 MG/0.4 ML SYRINGE SUBCUT (15:00)
[2024-08-18] MEDS: gadobutroL 10 ML VIAL IVPUSH (16:13)
[2024-08-18 16:50] LABS: Glucose, Whole Blood 112 mg/dL (60-115)
[2024-08-18 17:52] LABS: Vancomycin Trough 17.4 mcg/mL (10.0-20.0)
--- NOTE | 2024-08-18 17:58 | HE.PHANOTE ---
Re: Megan Renal function has improved. Trough returned at 17.4 Pt is therapeutic, continue dose at 1,250mg q12h with predicted AUC 556, predicted trough 18. Next trough is 08/19 @ 1700.
[2024-08-18 18:14] VITALS: BP 137/65; PULSE 78; RESP 12; TEMP 36.9; O2SAT 94
[2024-08-18 19:17] VITALS: BP 130/70; PULSE 76; RESP 16; TEMP 36.5; O2SAT 95
[2024-08-18] MEDS: Melatonin 3 MG TABLET 6 MG PO (19:54)
[2024-08-18 19:55] LABS: Glucose, Whole Blood 125 mg/dL (60-115)
[2024-08-18] MEDS: rOPINIRole HCL 2 MG TABLET PO (19:55)
[2024-08-19] MEDS: HYDROmorphone HCl 0.5 MG/0.5 ML SYRINGE IVPUSH ×3 (03:21→14:36)
[2024-08-19 03:42] VITALS: BP 135/76; PULSE 82; RESP 16; TEMP 36.4; O2SAT 94
[2024-08-19] MEDS: vancomycin HCL 1,250 MG in 0.9 % Sodium Chloride 250 ML 125 MG IV (06:12)
[2024-08-19 06:53] LABS: Creatinine Clr Calc Pharmacy 79.3; Estimated Glomerular Filt Rate > 60
[2024-08-19 07:07] VITALS: BP 132/78; PULSE 73; RESP 22; TEMP 36.4; O2SAT 96
[2024-08-19 07:41] LABS: Glucose, Whole Blood 116 mg/dL (60-115)
[2024-08-19 07:49] LABS: C Reactive Protein 0.89 mg/dL (< or = 0.50)
[2024-08-19 08:48] VITALS: BP 132/78; PULSE 73; O2SAT 96
[2024-08-19] MEDS: Atorvastatin Calcium 80 MG TABLET PO (08:53)
[2024-08-19] MEDS: Docusate Sodium 100 MG CAPSULE PO (08:53)
[2024-08-19] MEDS: rOPINIRole HCL 2 MG TABLET 4 MG PO (08:54)
[2024-08-19] MEDS: Famotidine 20 MG TABLET PO (08:55)
[2024-08-19] MEDS: hydrOXYzine HCL 50 MG TABLET PO ×2 (08:55→14:36)
[2024-08-19] MEDS: Aspirin Enteric Coated 81 MG TABLET.DR PO (08:55)
[2024-08-19] MEDS: 0.9 % Sodium Chloride Flush 3 ML SYRINGE IVFLUSH ×2 (08:55→14:36)
[2024-08-19 11:10] LABS: Glucose, Whole Blood 130 mg/dL (60-115)
--- NOTE | 2024-08-19 11:21 | PC.RT ---
pt refused to wear cpa x3 nights in a row. therefore cpap pulled and ordered dc
[2024-08-19] MEDS: Enoxaparin Sodium 40 MG/0.4 ML SYRINGE SUBCUT (14:03)
[2024-08-19] MEDS: cefTRIAXone sodium 2 GM VIAL IVPUSH (14:36)
[2024-08-19 14:42] VITALS: BP 148/76; PULSE 85
--- NOTE | 2024-08-19 14:54 | MHC.CM.PN ---
RPER ROUNDS PT NOT MEDICALLY STABLE DC PLAN WILL BE HOME WITH [facility]
[2024-08-19 15:48] VITALS: BP 125/74; PULSE 85; RESP 18; TEMP 36.8; O2SAT 94
[2024-08-19 16:07] LABS: Glucose, Whole Blood 146 mg/dL (60-115)
--- NOTE | 2024-08-19 16:22 | P.PNIM_ITS ---
Subjective Subjective Date of Service: 08/19/24 Interval History: c/o severe lower back pain radiating down L leg he wants the spinal stimulator out and reports that he has been unable to get a call back from Dr Benites's office and is willing to see Dr Sierra here Review of Systems Review of Systems: Yes all other systems are reviewed and are negative Physical Exam 2 Vital Signs: Vital Signs: Last Vital Signs Temp 98.2 F 08/19/24 15:48 Pulse 85 08/19/24 15:48 Resp 18 08/19/24 15:48 BP 125/74 08/19/24 15:48 Pulse Ox 94 08/19/24 15:48 O2 Del Method Room Air 08/19/24 15:48 BMI result Body Mass Index 37.9 Gen: in no acute distress HEENT: sclera anicteric, moist mucus membranes Neck: supple Lungs: clear to auscultation bilaterally Heart: regular rate and rhythm, no murmurs Abd: soft, non-tender, non-distended Back: midline lower lumbar tenderness Ext: no edema Skin: warm/well-perfused Neuro: alert and oriented x3, 4/5 strength in legs bilaterally Psych: appropriate affect Objective Data Active Medications Acetaminophen (Acetaminophen 325 Mg Tablet) 975 mg PO Q6H PRN PRN Reason: Pain, Mild (Pain Scale 1-3), fever or headache Aspirin (Aspirin Enteric Coated 81 Mg Tablet.) 81 mg PO DAILY [facility] Last Admin: 08/19/24 08:55 Dose: 81 mg Documented By: MADELINE Atorvastatin Calcium (Atorvastatin Calcium 80 Mg Tablet) 80 mg PO DAILY [facility] Last Admin: 08/19/24 08:53 Dose: 80 mg Documented By: MADELINE Ceftriaxone Sodium (Ceftriaxone Sodium 2 Gm Vial) 2 gm IVPUSH Q24H [facility] Last Admin: 08/19/24 14:36 Dose: 2 gm Documented By: MADELINE Docusate Sodium (Docusate Sodium 100 Mg Capsule) 100 mg PO BID [facility] Last Admin: 08/19/24 08:53 Dose: 100 mg Documented By: MADELINE Enoxaparin Sodium (Enoxaparin Sodium 40 Mg/0.4 Ml Syringe) 40 mg SUBCUT Q24H [facility] Last Admin: 08/19/24 14:03 Dose: 40 mg Documented By: MADELINE Famotidine (Famotidine 20 Mg Tablet) 20 mg PO BID [facility] Last Admin: 08/19/24 08:55 Dose: 20 mg Documented By: MADELINE Glucose (Glucose Gel 15 Gm Gel..Gram.) 15 gm PO Q15M PRN; Protocol PRN Reason: per Hypoglycemia Standing Ord. Hydroxyzine HCl (Hydroxyzine Hcl 50 Mg Tablet) 50 mg PO TID [facility] Last Admin: 08/19/24 14:36 Dose: 50 mg Documented By: MADELINE Dextrose (D10) 250 mls @ 750 mls/hr IV Q15M PRN; Protocol PRN Reason: per Hypoglycemia Standing Ord. Vancomycin HCl 1,250 mg/ (Sodium Chloride) 250 mls @ 166.667 mls/hr IV Q12H [facility] Last Infusion: 08/19/24 08:39 Dose: Infused Documented By: MADELINE Insulin Human Lispro (Insulin Lispro 100 Unit/Ml 3 Ml Vial) 0 unit SUBCUT QIDACHS [facility]; Protocol Last Admin: 08/19/24 16:10 Dose: Not Given Documented By: MADELINE Non-Admin Reason: No Insulin Coverage Melatonin (Melatonin 3 Mg Tablet) 6 mg PO BEDTIME PRN PRN Reason: Insomnia Last Admin: 08/18/24 19:54 Dose: 6 mg Documented By: SAMANTHA Oxycodone HCl (Oxycodone Hcl Immed Release 5 Mg Tablet) 5 mg PO Q4H PRN PRN Reason: Pain, Severe (Pain Scale 7-10) Pharmacy Consult (Consult Rx Vancomycin Dosing) 1 each MISCELLANE DAILY PRN PRN Reason: Consult order Ropinirole HCl (Ropinirole Hcl 2 Mg Tablet) 2 mg PO BEDTIME [facility] Last Admin: 08/18/24 19:55 Dose: 2 mg Documented By: SAMANTHA Ropinirole HCl (Ropinirole Hcl 2 Mg Tablet) 4 mg PO DAILY@0900 [facility] Last Admin: 08/19/24 08:54 Dose: 4 mg Documented By: MADELINE Sodium Chloride (0.9 % Sodium Chloride Flush 3 Ml Syringe) 3 ml IVFLUSH QSHIFT [facility] Last Admin: 08/19/24 14:36 Dose: 3 ml Documented By: MADELINE Labs 08/17/24 04:45 08/19/24 05:18 Labs: Laboratory Results - last 24 hr 08/18/24 08/18/24 08/18/24 16:39 17:19 19:48 Estim Creat Clear Calc Estimated GFR POC Glucose 112 125 H C-Reactive Protein Vancomycin Trough 17.4 08/19/24 08/19/24 08/19/24 05:18 07:11 11:04 Estim Creat Clear Calc 79.3 Estimated GFR > 60 POC Glucose 116 H 130 H C-Reactive Protein 0.89 H Vancomycin Trough 08/19/24 15:59 Estim Creat Clear Calc Estimated GFR POC Glucose 146 H C-Reactive Protein Vancomycin Trough ITS Impressions Lumbar Spine CT 08/17/24 17:38 IMPRESSION: Extensive degenerative changes with subchondral erosions at the level of L5-S1, correlate with clinical history and MRI. Degenerative changes at the level of L5-S1. No evidence of abscess formations. Electronically signed by: Danielle Mendoza MD 08/18/2024 11:14 AM EST RP Lumbar Spine MRI 08/18/24 15:33 IMPRESSION: Overall improved without overt abscess in the prevertebral compartment. Electronically signed by: Kei Cagle MD 08/19/2024 07:38 AM EST RP Microbiology Microbiology Results: Microbiology 08/16/24 17:34 Blood Culture - Preliminary Blood - Venous No growth after 48 hours. 08/16/24 17:34 Blood Culture - Preliminary Blood - Venous No growth after 48 hours. Assessment and Plan (1) Low back pain: Status: Acute Plan d3 64yo M with hx lumbar DDD, lumbar stenosis, lumbar radiculopathy, cervcial disk disorder, prior group B streptococcal osteomyelitis, ischemic CVA, fibromyalgia, RADHA, DM2, RLS; [employer] spinal stimulator at T12; admitted with worsening lower back pain causing difficulty walking. He was seen by [facility] 06/14/24 and had a lumbar MRI 07/19/24 that showed findings concerning for diskitis/osteomyelitis with phlegmon/abscess in anterior lateral periventricular compartment of L4-L5. However, ESR and CRP are completely normal and contrast CT of L-spine shows extensive degenerative changes with subchondral erosions at the level of L5-S1; degenerative changes at the level of L5-S1; no evidence of abscess formation. - Discussed with IR, no drainable collection noted on CT - Discussed with Rachel Syed NP from Pain Mgmt; if pt would like spinal stimulator removed, it should be done by Neurosurgery [it was placed by Dr Benites at [facility]]- can see Dr Sierra as outpt - Reviewed July and current MRI with Dr Francois from Pain [facility]; recommends outpt Neurosurgery evaluation - ID consult pending - will switch from IV Dilaudid to PO oxycodone Other issues HLD CVA - continue statin RADHA - CPAP RLS - ropinirole DM2 - angle-dose lispro VTE ppx - enoxaparin dispo - plan home with [facility] In my clinical judgment, the patient requires continued inpatient hospitalization for the following reasons: question of osteomyelitis, awaiting ID consultation Total time managing care of this patient today: 35 minutes. Quality Stroke Does the patient have a stroke diagnosis?: No VTE Prior VTE?: No VTE Risk Level:: Medical - moderate - high VTE Device Contraindication: N/A - Device Ordered VTE Drug Contraindication: Treatment Not Indicated
--- NOTE | 2024-08-19 16:49 | P.DS_ITS ---
DS: Providers Provider Date of Service: 08/19/24 Date of admission: 08/17/24 00:08 Date of discharge: 08/19/24 Primary care physician: Piedad Little MD Consults: 08/17/24 08:32 Consult to Infectious Diseases Routine Consulting Provider: [facility] Reason for consultation: osteomyelitis/discitis L4-5 Has provider been notified: No 08/17/24 14:55 Consult to Pain Management Stat Consulting Provider: Kingston Francois Reason for consultation: for removal of neurostimulator Has provider been notified: No DS: Diagnosis Discharge Diagnosis (1) Low back pain: Status: Acute (2) Disc degeneration, lumbar: Status: Acute (3) Spinal cord stimulator status: Status: Acute DS: Summary Hospital Course Hospital Course: From the history and physical by the admitting hospitalist, Anoop Palmer, 08/17/24: Javier Benjamin is a 64 years old man with past medical history significant for chronic back pain (f/u pain clinic) fibromyalgia, obesity, RADHA, COPD, hyperlipidemia, CKD and restless leg syndrome presents to the emergency department complaining of worsening lower back pain associated with worsening walking difficulty. Patient reports urinary incontinence which is offer him. Denied numbness to the groin. Patient underwent a lumbar MRI on July 19 of this year that showed findings concerning for diskitis/osteomyelitis with phlegmon/abscess in the anterior lateral periventricular compartment of L4-5 with no epidural abscess. Patient stated that no one called him to notify this result and he is not currently on any antibiotic therapy. Patient arrived to the emergency department today around 5 pm. Patient denied any headache, palpitations, shortness on breath, nausea or vomiting. He did not report any acute gastrointestinal or cardiopulmonary symptoms. In the ED, he was found to have normal vital signs. Blood workup showed no leukocytosis. There is no lactic acidosis. CRP and ESR are normal. Urinalysis showed WBC 2-10 but negative nitrites or leukocyte steroids. Lumbar x-ray showed neurostimulator device and finding concerning of the diskitis/osteomyelitis at the level L4-L5. No other imaging obtained. ED tx: Zosyn 3.375 g IV, normal saline 3 L, ketorolac 15 mg IV, morphine 8 mg IV, vancomycin 2 g 64yo M with hx lumbar DDD, lumbar stenosis, lumbar radiculopathy, cervcial disk disorder, prior group B streptococcal osteomyelitis, ischemic CVA, fibromyalgia, RADHA, DM2, RLS, and a [employer] spinal stimulator at T12. He was admitted to the medical-surgical unit with worsening lower back pain over the last few months causing difficulty walking. He was seen by [facility] Pain [facility] 06/14/24 and had a lumbar MRI 07/19/24 that showed findings concerning for diskitis/osteomyelitis with phlegmon/abscess in anterior lateral periventricular compartment of L4-L5. He was admitted on IV antibiotics, for concern of recurrent osteomyelitis. However, ESR and CRP were normal and a contrast CT of L-spine showed extensive degenerative changes with subchondral erosions at the level of L5-S1; degenerative changes at the level of L5-S1; but no evidence of abscess formation, so no drainable collection. Discussed with Rachel Syed NP from [facility] Pain [facility]. The patient insists on having his spinal stimulator removed and as this was neurosurgically implanted, it would have to be done by a neurosurgeon. He was referred to Dr Sierra from the [facility] as an outpatient. Reviewed prior and current MRI and the L-spine with Dr Francois from Pain Mgmt and Dr Kearney from Infectious Disease and there is improvement in the enhancement in the disks and endplates of L4 and L5. Infection was thought to be extremely unlikely, and antibiotics were discontinued upon Dr Kearney's recomendation. He was seen by PT and home services through a VNA were recommended. He was discharged with a prescription for oxycodone 5 mg q6h prn severe pain #12. Time Attestation Discharge Coordination Time (in mins): 45 Quality: Safe Use of Opioids Does Pt have an Active Cancer Diagnosis on the Problem List?: No Quality: Stroke Does the patient have a stroke diagnosis?: No Physical Exam Vital Signs: Vital Signs: Last Vital Signs Temp 98.2 F 08/19/24 15:48 Pulse 85 08/19/24 15:48 Resp 18 08/19/24 15:48 BP 125/74 08/19/24 15:48 Pulse Ox 94 08/19/24 15:48 O2 Del Method Room Air 08/19/24 15:48 BMI result Body Mass Index 37.9 Gen: in no acute distress HEENT: sclera anicteric, moist mucus membranes Neck: supple Lungs: clear to auscultation bilaterally Heart: regular rate and rhythm, no murmurs Abd: soft, non-tender, non-distended Back: midline lower lumbar tenderness Ext: no edema Skin: warm/well-perfused Neuro: alert and oriented x3, 4/5 strength in legs bilaterally Psych: appropriate affect DS: Data Data Completed and Pending Completed studies during hospitalization [Text1]: Laboratory Results WBC 7.0 X10*3/uL (4.8-10.8) 08/17/24 04:45 RBC 4.90 X10*6/uL (4.60-5.80) 08/17/24 04:45 Hgb 15.0 g/dl (14.0-18.0) 08/17/24 04:45 Hct 44.1 % (42.0-52.0) 08/17/24 04:45 MCV 90.0 fL (80.0-98.0) 08/17/24 04:45 MCH 30.6 pg (27.0-33.0) 08/17/24 04:45 MCHC 34.0 g/dl (31.0-36.0) 08/17/24 04:45 RDW 12.5 % (11.0-16.0) 08/17/24 04:45 Plt Count 132 X10*3/uL (160-400) L 08/17/24 04:45 MPV 10.8 fL (9.4-12.4) 08/17/24 04:45 Immature Gran % (Auto) 0.3 % (0.0-0.4) 08/17/24 04:45 Neut % (Auto) 47.2 % (45-73) 08/17/24 04:45 Lymph % (Auto) 41.3 % (20-40) H 08/17/24 04:45 Lares % (Auto) 7.5 % (2-11) 08/17/24 04:45 Eos % (Auto) 3.0 % (0-4) 08/17/24 04:45 Baso % (Auto) 0.7 % (0-2) 08/17/24 04:45 Lymph # (Auto) 2.9 X10*3/uL (1.2-4.9) 08/17/24 04:45 Lares # (Auto) 0.5 X10*3/uL (0.1-1.2) 08/17/24 04:45 Eos # (Auto) 0.2 X10*3/uL (0.0-0.4) 08/17/24 04:45 Baso # (Auto) 0.1 X10*3/uL (0.0-0.2) 08/17/24 04:45 Abs Immat Gran (auto) 0.02 X10*3/uL (0.00-0.03) 08/17/24 04:45 Absolute Neuts (auto) 3.3 x10*3/uL (2.0-8.3) 08/17/24 04:45 Absolute Nucleated RBC 0.000 X10*3/uL (0.0-0.012) 08/17/24 04:45 Nucleated RBC % (auto) 0.0 /100WBC (0.0-0.2) 08/17/24 04:45 Smear Tech's Comments VERIFIED 08/17/24 04:45 ESR 2 MM/HR (0-15) 08/16/24 17:33 Sodium 137 mmol/L (135-145) 08/17/24 04:45 Potassium 4.7 mmol/L (3.3-5.1) 08/17/24 04:45 Chloride 112 mmol/L (96-108) H 08/17/24 04:45 Carbon Dioxide 19 mmol/L (22-29) L 08/17/24 04:45 Anion Gap 11 (12-20) L 08/17/24 04:45 BUN 15 mg/dL (9-16) 08/17/24 04:45 Creatinine 1.09 mg/dL (0.5-1.4) 08/19/24 05:18 Estim Creat Clear Calc 79.3 08/19/24 05:18 Estimated GFR > 60 08/19/24 05:18 POC Glucose 146 mg/dL (60-115) H 08/19/24 15:59 Random Glucose 113 mg/dL (60-115) 08/17/24 04:45 Lactic Acid 2.0 mmol/L (0.5-2.0) 08/16/24 17:33 Calcium 8.3 mg/dL (8.4-10.2) L D 08/17/24 04:45 Total Bilirubin 0.5 mg/dL (0.0-1.0) 08/16/24 17:33 AST 21 U/L (5-37) 08/16/24 17:33 ALT 20 U/L (0-40) 08/16/24 17:33 Alkaline Phosphatase 77 U/L (39-117) 08/16/24 17:33 C-Reactive Protein 0.89 mg/dL (< or = 0.50) H 08/19/24 05:18 Total Protein 7.1 g/dL (6.5-8.0) 08/16/24 17:33 Albumin 4.1 g/dL (3.5-5.0) 08/16/24 17:33 Urine Color Yellow 08/16/24 15:39 Urine Appearance Clear 08/16/24 15:39 Urine pH 6.0 (5.0-9.0) 08/16/24 15:39 Ur Specific [place] >= 1.030 (1.005-1.025) H 08/16/24 15:39 Urine Protein Negative mg/dL (Neg-Trace) 08/16/24 15:39 Urine Glucose (UA) >=1000 mg/dL (Negative) H 08/16/24 15:39 Urine Ketones Negative mg/dL (Negative) 08/16/24 15:39 Urine Blood Negative (Negative) 08/16/24 15:39 Urine Nitrite Negative (Negative) 08/16/24 15:39 Ur Leukocyte Esterase Negative (Negative) 08/16/24 15:39 Urine RBC 0-2 /HPF (0-2) 08/16/24 15:39 Urine WBC 6-10 /HPF (0-5) H 08/16/24 15:39 Ur Squamous Epith Cells 0-2 /HPF (0-2) 08/16/24 15:39 Urine Bacteria None Seen (None Seen) 08/16/24 15:39 Hyaline Casts 0-2 /LPF (0-2) 08/16/24 15:39 Vancomycin Trough 17.4 mcg/mL (10.0-20.0) 08/18/24 17:[address] 08/17/24 17:38 IMPRESSION: Extensive degenerative changes with subchondral erosions at the level of L5-S1, correlate with clinical history and MRI. Degenerative changes at the level of L5-S1. No evidence of abscess formations. Electronically signed by: Danielle Mendoza MD 08/18/2024 11:14 AM EST RP Lumbar Spine MRI 08/18/24 15:33 IMPRESSION: Overall improved without overt abscess in the prevertebral compartment. Electronically signed by: Kei Cagle MD 08/19/2024 07:38 AM EST RP Discharge Plan Discharge Anticipated Discharge Date/Time: 08/19/24 16:44 Patient Disposition: Home Health Service Discharge Diagnosis: lumbar degenerative disk disease lumbar radiculopathy presence of spinal stimulator Referrals: Piedad Pacheco MD [Primary Care Provider] - 1 Week Alexis Sierra MD, PhD [Physician] - 1 Week Discharge Medications: Continued hydroxyzine pamoate 50 mg capsule 50 mg PO TID zolpidem 10 mg tablet 10 mg PO BEDTIME PRN (Reason: insomnia) atorvastatin 80 mg tablet 80 mg PO DAILY metformin 500 mg tablet 500 mg PO BID ropinirole 2 mg tablet 2 mg PO BID famotidine 20 mg tablet 20 mg PO BID dapagliflozin propanediol [Farxiga] 10 mg tablet 10 mg PO DAILY docusate sodium 100 mg capsule 100 mg PO BID sennosides [senna] 8.6 mg tablet 17.2 mg PO BEDTIME clopidogrel 75 mg tablet 75 mg PO DAILY tamsulosin 0.4 mg capsule 0.4 mg PO DAILY tadalafil 20 mg tablet 20 mg PO fluticasone propionate 50 mcg/actuation spray,suspension 1 spray intranasal BID pregabalin 50 mg capsule 50 mg PO BID 30 Days Qty: 60 0RF lidocaine 5 % adhesive patch,medicated See Rx Instructions topical DAILY 30 Days Qty: 30 0RF Rx Instructions: leave on most painful area for up to 12 hrs topically daily; naloxone 4 mg/actuation spray,non-aerosol intranasal PRN aspirin [Adult Aspirin Regimen] 81 mg tablet,delayed release (DR/EC) 81 mg PO DAILY Changed oxycodone 5 mg tablet 5 mg PO Q6H PRN (Reason: severe pain) Qty: 12 0RF Discharge Orders: Discharge Order (Routine); Ordered 08/19/24 Ordered By: Treasure Irwin Diet: Diabetic diet Activity on Discharge: As tolerated Stand Alone Forms: Patient Portal Discharge page Print Language: Latvian Care Plan Goals: relief of back pain Health Concerns: lumbar degenerative disk disease lumbar radiculopathy presence of spinal stimulator Plan of Treatment: home with VNA services for PT continue lidocaine patch; oxycodone for severe pain Please follow up with your primary care doctor within 1 week. Return to the hospital if you experience recurrent or worsening symptoms. follow up with Dr Sierra from [facility] Neurosurgery: [facility] is located at?[address] [place] [address], [address] [place] [address], and can be reached at?[phone]. Assessment: See Discharge Summary.
--- NOTE | 2024-08-19 16:50 | W.MHC.F2F ---
Service Date Service Date: 08/19/24 Encounter Date of encounter: 08/19/24 Reasons for Services Signs and symptoms assessed: back pain/radiculopathy Reason for physical therapy: home safety and mobility, therapeutic exercises, restore joint function, gait/transfer training, assess need for DME, ADL training and energy conservation MD Overseeing Care: Piedad Little Homebound: Leaving the home is medically contraindicated at this time without the asist of a device and/or another person due th the listed conditions above and below. Reason homebound: unsteady gait / fall risk, leg weakness and pain with ambulation Certification: Based on the above findings, I certify that this patient is confined to the home and needs intermittent halfway care, physical therapy and/or speech therapy, or continues to need occupational therapy. The patient is under my care, and I have initiated the establishment of the plan of care. The patient will be followed by a physician who will periodically review the plan of care. Time Spent With Patient Time: Total time managing care of this patient today ____ minutes.
[2024-08-19 17:09] LABS: Vancomycin Random 18.6 mcg/mL (15-20)
--- NOTE | 2024-08-19 17:18 | PC.NURSE ---
Patient questioned discharge today,Dr. Irwin notified,came and see patient ,patient agreed with discharge
--- NOTE | 2024-08-19 17:22 | PC.NURSE ---
patient refused furnace puncher for discharge stating he can speak good uruguayan
--- NOTE | 2024-08-19 22:25 | P.CNID_ITS ---
History of Present Illness Data of Consult Service Date: 08/17/24 Requesting physician: Ernesto Eisenberg Primary Care Provider: Piedad Little MD HPI Reason for consult: possible spinal abscess,s/p spinal cord stimulator He had spinal cord stimulator placed 01/2020 for back pain per Pain Clinic. He also had vaporizing procedure prostate and had Group B strep bacteremia urine and blood and received IV CTX for presumed spinal OM He now has ongoing back pain and MRI 07/2024 ordered by Pain Management shows OM and thought initially abscess but nothing to drain. He was called in due to abscess possible lumbar spin. Review of Systems 2 Review of Systems: Lumbar pain only Yes all other systems are reviewed and are negative PMFSH Past Medical History Medical History Heart failure Ischemic stroke Balanitis Osteomyelitis Moderate episode of recurrent major depressive disorder Restless leg syndrome History of cocaine use Essential (primary) hypertension CKD (chronic kidney disease) Hx of exertional chest pain Dry eye Other hyperlipidemia Urinary incontinence Lumbar radiculopathy COPD (chronic obstructive pulmonary disease) Diabetes Elevated alanine aminotransferase (ALT) level History of hepatitis B Hepatitis B immune Obstructive sleep apnea Fibromyalgia Hepatitis A immune Cervical disc disease Metabolic syndrome Cardiovascular event risk Family History Family History Father Prostate cancer Heart problem Mother Heart attack DM2 (diabetes mellitus, type 2) Sister Stomach cancer Brother Alzheimer disease Family history: reviewed and not pertinent Surgical History Surgical History Status post insertion of spinal cord stimulator Social History Social History Household Members: Significant Other Housing: House Do you presently have visiting nurse or other home services: No Alcohol intake: current Alcohol intake frequency: does not drink Alcohol type: hard liquor Patient Tobacco Use Status: Current everyday Tobacco user Tobacco use type: Cigarette Cigarettes Per Day: 2 service: No Meds Allergies Allergy/AdvReac Type Severity Reaction Status Date / Time No Known Allergies Allergy Verified 08/16/24 17:19 Home Medications ?Medication ?Instructions ?Recorded ?Confirmed ?Last Taken ?Type atorvastatin 80 mg tablet 80 mg PO DAILY 09/17/21 08/16/24 Unknown History metformin 500 mg tablet 500 mg PO BID 09/17/21 08/16/24 Unknown History clopidogrel 75 mg tablet 75 mg PO DAILY 06/14/24 08/16/24 Unknown History dapagliflozin propanediol 10 mg 10 mg PO DAILY 06/14/24 08/16/24 Unknown History tablet (Farxiga) docusate sodium 100 mg capsule 100 mg PO BID 06/14/24 08/16/24 Unknown History famotidine 20 mg tablet 20 mg PO BID 06/14/24 08/16/24 Unknown History fluticasone propionate 50 1 spray intranasal BID 06/14/24 07/27/24 Unknown History mcg/actuation nasal spray,suspension sennosides 8.6 mg tablet (senna) 17.2 mg PO BEDTIME 06/14/24 07/27/24 Unknown History tadalafil 20 mg tablet 20 mg PO 06/14/24 07/27/24 Unknown History tamsulosin 0.4 mg capsule 0.4 mg PO DAILY 06/14/24 07/27/24 Unknown History aspirin 81 mg tablet,delayed 81 mg PO DAILY 07/27/24 08/16/24 Unknown History release (Adult Aspirin Regimen) naloxone 4 mg/actuation nasal spray intranasal PRN 07/27/24 07/27/24 Unknown History ropinirole 2 mg tablet 2 mg PO BID 07/27/24 08/16/24 Unknown History hydroxyzine pamoate 50 mg capsule 50 mg PO TID 08/16/24 08/16/24 Unknown History zolpidem 10 mg tablet 10 mg PO BEDTIME PRN insomnia 08/16/24 08/16/24 Unknown History Physical Exam 2 Vital Signs: Vital Signs: Last Vital Signs Temp 98.2 F 08/19/24 15:48 Pulse 85 08/19/24 15:48 Resp 18 08/19/24 15:48 BP 125/74 08/19/24 15:48 Pulse Ox 94 08/19/24 15:48 O2 Del Method Room Air 08/19/24 15:48 BMI result Body Mass Index 37.9 Const: General: cooperative HEENT: Head: Yes normal to inspection Face and sinus: Yes normal facial exam Mouth: Normal oral and palatal mucosa present Teeth and gingiva: d entition normal Eyes: General: appearance normal, both eyes and all related structures P upils: Equal, round and reactive pupils present Resp: Effort & Inspection: normal respiratory effort Cardio: Rate: regular rate Rhythm: regular rhythm GI: Palpation (GI): Soft to palpation and nontender : General: Yes no CVA tenderness Back/Spine/Pelvis: Other: back pain,lumbar Back: no CVA tenderness Skin: General skin exam: no rashes or lesions noted Neuro: General: moves all extremities Cranial nerves: Yes Equal, round and reactive pupils present Extrem: General: Yes normal to inspection Psych: Appearance: grossly normal Results Labs 08/17/24 04:45 08/19/24 05:18 Labs: BMP 08/19/24 05:18 Creatinine 1.09 Microbiology Microbiology Results: Microbiology 08/16/24 17:34 Blood - Venous Blood Culture - Preliminary No growth after 48 hours. 08/16/24 17:34 Blood - Venous Blood Culture - Preliminary No growth after 48 hours. 08/16/24 18:15 Urine clean catch - Clean Catch Midstream Urine Culture - Final Assessment and Plan (1) Spinal cord stimulator status: Status: Acute (2) Lumbar radiculopathy: Status: Acute Plan Chronic pain in back MRI always will show bone loss and worsening in area. This is not curable. Likely sustained during urosepsis workup No antibiotics needed at this time,nontoxic. Follow Pain Management see if can remove spinal cord stimulator and culture it per patient.
== END 2024-08-19 18:40 | disposition home health service (06) | DRG 552 ==
LOC: HO.ED 20:52 → HO.EDOVER 08-17 00:13 → HO.S3 08-17 11:25
PROVIDERS: Hospitalist; Registered Nurse Emergency; Admitting Provider Internal Medicine; Emergency Provider Emergency Medicine; PCP Internal Medicine; Visit Provider Family Medicine
DX: M51.16 Intervertebral disc disorders with radiculopathy, lumbar region (principal); F17.210 Nicotine dependence, cigarettes, uncomplicated; M79.7 Fibromyalgia; G25.81 Restless legs syndrome; Z96.82 Presence of neurostimulator; E11.9 Type 2 diabetes mellitus without complications; E78.5 Hyperlipidemia, unspecified; G47.33 Obstructive sleep apnea (adult) (pediatric); Z71.6 Tobacco abuse counseling; Z79.02 Long term (current) use of antithrombotics/antiplatelets; Z79.51 Long term (current) use of inhaled steroids; Z79.82 Long term (current) use of aspirin; Z79.84 Long term (current) use of oral hypoglycemic drugs; Z79.899 Other long term (current) drug therapy
CPT/HCPCS: 36415; 72132; 72158; 80048; 80053; 80202; 81001; 82565; 82947; 83605; 85025; 85652; 86140; 87040; 87086; 97162; 99285; A9585; J0696; J1171; J1650; J1885; J2270; J2543; J3370; J3371; Q9967

== ENCOUNTER 2024-08-17 00:08 | Outpatient (BNV) | payer MEDICARE, SELFPAY | END 2024-08-18 15:33 | PROVIDERS: Admitting Provider Internal Medicine; Emergency Provider Emergency Medicine; PCP Internal Medicine; Visit Provider Radiology Diagnostic Radiology | DX: M46.26 Osteomyelitis of vertebra, lumbar region (principal) | CPT/HCPCS: 72158 ==

== ENCOUNTER → 2024-08-17 00:08 | Outpatient (BNV) | payer MEDICARE, SELFPAY | PROVIDERS: Admitting Provider Internal Medicine; Emergency Provider Emergency Medicine; PCP Internal Medicine; Visit Provider Internal Medicine | DX: Z96.89 Presence of other specified functional implants (principal); M54.16 Radiculopathy, lumbar region | CPT/HCPCS: 99222 ==

== ENCOUNTER → 2024-08-17 00:08 | Outpatient (BNV) | payer MEDICARE, SELFPAY | PROVIDERS: Admitting Provider Internal Medicine; Emergency Provider Emergency Medicine; PCP Internal Medicine; Visit Provider Internal Medicine | DX: M54.50 Low back pain, unspecified (principal); M46.26 Osteomyelitis of vertebra, lumbar region | CPT/HCPCS: 99222; 99232; 99239; 99499; G0180 ==

== ENCOUNTER → 2024-08-24 15:06 | Outpatient (REF) | payer MEDICARE, SELFPAY ==
--- NOTE | 2024-08-24 15:08 | CA_ITS ---
Transthoracic Echocardiogram Patient (Last, First, Middle): Javier Blank L Gender: Male Date of : 1960 Age: 64 Procedure Date: 08/24/2024 Procedure Type: Transthoracic Echocardiogram Location: OP Height: 167.64 cm Weight: 102.06 kg BSA: 2.10 m2 Heart Rate: bpm BP: 122 / 80 mmHg Jute Bag Sewer: MALISSA Referring MD: Papa Ricketts MD Tester Equipment: Serg Kelley MD Symptoms: I42.9 - Cardiomyopathy, unspecified Study Quality: Fair ECG Rhythm: Sinus Conclusions: - 1. Low normal LV ejection fraction 50-55% with grade 1 diastolic dysfunction 2. Cardiac valvular Dopplers within normal limits 3. Normal RV systolic pressure 4. No gross pericardial effusion Findings Left Ventricle Normal left ventricular cavity size. There is mildly increased left ventricular wall thickness. The left ventricular systolic function is low normal. The visually estimated ejection fraction is between 50-55%. Spectral Doppler is indicative of an impaired relaxation filling pattern. E/E prime ratio is <8, consistent with normal filling pressures. Evidence suggests grade I (mild) diastolic dysfunction. there is possible hypokinesis of the basal and mid inferior wall. Right Ventricle Normal right ventricular cavity size and systolic function. Atria The left atrium is likely dilated. There is no evidence of interatrial shunt. The right atrium is normal in size. Aortic Valve The aortic valve structure and function is likely normal. There is no aortic valve stenosis. There is no aortic valve regurgitation. Mitral Valve Likely normal mitral valve structure and function. There is trace mitral valve regurgitation. There is no mitral valve stenosis. Pulmonic Valve The pulmonic valve was not well visualized. Tricuspid Valve Likely normal tricuspid valve structure and function. There is trace tricuspid valve regurgitation. The right ventricular systolic pressure is normal. The right ventricular systolic pressure is 19 mmHg. Normal right atrial pressure. There is no evidence of pulmonary hypertension. Great Vessels All visible segments of the aorta are normal in size. The pulmonary artery was not well visualized. There is no dilatation of the ascending aorta measuring 2.90 cm. Venous The inferior vena cava is normal in size and collapses greater than 50% with inspiration. Pericardium/Pleural There is no evidence of pericardial effusion. Prior Study Comparison No prior study available for comparison. Measurements 2D Linear Measurements IVSd: 1.17 0.6-0.9/0.6-1.0 cm LVIDd: 4.33 3.9-5.3/4.2-5.9 cm LVIDd Index: 2.06 2.4-3.2/2.2-3.1 cm/m2 LVIDs: 3.06 2.0-3.6 cm LVPWd: 1.20 0.7-1.1 cm LA Diam: 3.90 2.7-3.8/3.0-4.0 cm LAIDs Index: 1.86 1.5-2.3 cm/m2 LV Mass: 228.36 67-162/88-224 g LV Mass Index: 108.74 43-95/49-115 g/m2 LVOT Diam: 2.00 3.0+(-)1.3 cm 2D Systolic Function EF 4C: 53.10 >55% EF 2C: 53.20 >55% EF BiP: 52.90 >55% Mitral Valve MV Pk E: 0.49 MV PK A: 0.67 MV Decel Time: 190.00 E/A: 0.70 E'Lateral: 5.98 E'Medial: 5.55 E/E' Med: 8.90 E/E' Lat: 8.30 PHT: 56.00 MVA PHT: 3.93 Decel Barrow: 2.60 Aortic Valve AoV Pk Mc: 1.30 AoV Mn Mc: 0.94 AoV VTI: 0.26 AoV Pk Grad: 7.00 Aov Mn Grad: 4.00 ASAD Cont.VTI: 2.22 LVOT LVOT Pk Mc: 1.05 LVOT Mn Mc: 0.70 LVOT VTI: 0.18 LVOT Pk Grad: 4.00 LVOT Mn Grad: 2.00 LVOT Diam: 2.00 LVOT Area: 3.14 Diastolic Function MV Pk E: 0.49 MV Pk A: 0.67 E/A: 0.70 E'Medial: 5.55 E/E' Med: 8.90 E' Laterial: 5.98 E/E' Lat: 8.30 Right Ventricle TAPSE (mm): 24.30 TVS' Mc: 12.90 Tricuspid Valve TR Pk Mc: 2.00 TR Pk Grad: 16.00 RA Press: 3.00 RVSP: 19.00 Great Vessels Aorta Sinus of Valsalva: 2.98 2.0-3.[address] [place]: 2.35 1.7-3.4 cm Ao Asc: 2.90 2.1-3.4 cm Pulmonary Valve PV Pk Mc: 1.95 PV Min Mc: 1.12 Peak PV Grad: 15.00 PV Mn Grad: 6.00 Shunting QP:QS: 0.90 Updated in Other Vendor System with Status of Final Serg Kelley MD electronically signed on 08/24/2024 5:02:11 PM with status of Final
== END ==
LOC: HO.CARD 15:06
PROVIDERS: PCP Internal Medicine; Visit Provider Internal Medicine
DX: I42.9 Cardiomyopathy, unspecified (principal)
CPT/HCPCS: 93306

== ENCOUNTER → 2024-08-24 15:08 | Outpatient (BNV) | payer MEDICARE, SELFPAY | PROVIDERS: PCP Internal Medicine; Visit Provider Internal Medicine Cardiovascular Disease | DX: I51.89 Other ill-defined heart diseases (principal) | CPT/HCPCS: 93306 ==

== ENCOUNTER 2024-09-12 13:11 | Outpatient (AMB) | payer MEDICARE, SELFPAY ==
--- NOTE | 2024-09-12 13:12 | A.SPINEOV_ITS ---
Vital Signs 09/12/24 13:23 Height 5 ft 6 in Weight 220 lb BMI 35.5 Intake Visit Reasons: ED follow up Intake Note: Mr. Blank is here today for a F/u after being seen at the ED for Low back pain. 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 He is a pleasant, complicated 64-year-old male who comes in today with a chief complaint of low back pain and shooting pains down his left lower extremity. 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 He has been evaluated by our colleagues in pain management, and most recently was evaluated in the emergency department for severe low back pain. Overall he is a poor historian, and only provide small details regarding his history. I attempted to discuss his osteomyelitis status with him, which he is overall unsure about. He knows that at 1 point he did have osteomyelitis but is unsure if he still currently has it. The last note I have to review from [facility] is from Infectious Disease which recommended that he have his spinal cord stimulator removed and cultured, but reported that he is non- toxic and does not require antibiotics. When describing his pain he states that it starts in his low back, shoots into his posterior buttocks down his posterior thigh, into his posterior calf, and terminates at the bottom of his foot. He denies any numbness/tingling associated with the pain. He reports he is able to sleep okay with the assistance of ambien and does not awake at night in pain. He is currently taking oxycodone and pregabalin in order to mitigate the pain. Of note he also had a stroke roughly 3 months ago which caused severe weakness in the right side of his body causing him to need an electric scooter to get around. PMH: Spinal [place] [address] Reese. History of osteomyelitis of thoracic spine. Fibromyalgia, Hypertension, hyperlipidemia, type 2 diabetes (unknown last A1C), heart failure with the EF of 40-50%, prior CVA with right-sided residual weakness. Social hx: The patient smokes 1 pack of cigarettes per week. Denies any substance use or drinking. Medications: Clopidogrel, aspirin, atorvastatin, dapagliflozin, docusate, famotidine, fluticasone, hydroxyzine, lidocaine, metformin, oxycodone, pregabalin, ropinirole, senna, tadalafil, tamsulosin, zolpidem. Allergies: NKDA. Physical exam: The patient has about 4/5 strength with right-sided dorsiflexion/plantar flexion/knee extension/knee flexion. He has about 3/5 strength with right-sided iliopsoas testing. He has about 3/5 strength with right-sided hand machine deburrer and interossei testing. The rest of his strength is 5/5 intact. He has no significant sensational deficits. He is unable to ambulate more than a few steps with a cane and needs to utilize a scooter to get around. His reflexes are absent in the bilateral patella but about 1+ in the bilateral Achilles. His right upper extremity reflexes are 3+. The rest of his reflexes are 2+ intact. (-) bilateral straight leg raise. (-) bilateral clonus. (-) bilateral Fraser's. Imaging review: MRI of the lumbar spine completed here at [facility] shows signal enhancement in the vertebral body of L5 on STIR. There is severe degenerative disc disease at L4-5 with severe left-sided foraminal stenosis at this level. There is also severe bilateral foraminal stenosis L5- S1. CT scan imaging of the lumbar spine shows auto fusion from L4-5. Impression: Javier is a pleasant complicated 64-year-old male who comes in today with a chief complaint of low back pain and shooting pains into his left lower extremity. He was referred here by the emergency department. He has a history of osteomyelitis and was recently treated in the emergency department with IV antibiotics. He followed up thereafter with our colleagues in Infectious Disease here at [facility], who recommended that he have his spinal cord stimulator removed and cultured, however also said that the lesion seen in L5 is nontoxic and does not require antibiotics. His spinal cord stimulator device can be seen underneath the superficial skin layer at about L4-5. Although he does have notable compression on imaging, we need to ensure that he does not have any current infectious parameters before making any surgical recommendations. Even in the setting of no infection his medical comorbidities may be too complex to suggest surgery. I will be reaching out to the emergency department provider that discharged him to clarify some questions regarding the osteomyelitis. I also will discuss this case with Dr. Sierra, and likely have the patient referred either back to Dr. Reese who placed the device, or to our colleagues in pain management for removal of the spinal cord stimulator device as our recommendations will likely fall in line with those given by Infectious Disease. Thank you for allowing us to care for your patient. The total time spent with this visit with this patient was 60 minutes reviewing history, physical exam, MRI imaging review, and implementation of treatment plan or further diagnostic testing Guillermo Sierra MD,PhD [facility] Coding Level of Care Code New Pt Level 5 (76832) Diagnoses Spinal cord stimulator status Z96.89
[2024-09-12 13:23] VITALS: BMI 35.5
== END 2024-09-12 13:49 | disposition home or self-care (01) ==
PROVIDERS: PCP Internal Medicine; Visit Provider Physician Assistant
DX: Z96.89 Presence of other specified functional implants (principal)
CPT/HCPCS: 99205

== ENCOUNTER → 2024-09-12 13:11 | Outpatient (BNVA) | payer MEDICARE, SELFPAY | PROVIDERS: PCP Internal Medicine; Visit Provider Physician Assistant | DX: Z96.82 Presence of neurostimulator (principal) | CPT/HCPCS: 99202 ==

== ENCOUNTER 2025-02-21 13:13 | Outpatient (AMB) | payer MEDICARE, SELFPAY ==
--- NOTE | 2025-02-21 13:16 | MHC.OFFVIS ---
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 Benites a month ago at [facility]. His back pain, initially explored in June 2024 due to concerns of osteomyelitis, remained relatively stable but has caused increasing difficulty in ambulation. Previous blood cultures and ID evaluations ruled out infectious etiology. Recent pain primarily affects the left leg, and while he describes an overall reduction in back pain post-stimulator removal, left leg pain persists and interferes severely with mobility. He utilized motorized scooter for transportation and mobility. He is able to walk very short distances with antalgic and slow gait. There is a noted history of a cerebrovascular accident occurring approximately one year ago, contributing to residual right-sided weakness, although the patient reports gradual improvement with PT and rehabilitation. He is concomitantly managing multiple chronic health issues, including fibromyalgia, obesity, sleep apnea, chronic kidney disease, and restless leg syndrome. Patient is currently on Plavix. Past interventions, inclusive of physical therapy, provided minimal relief. The patient is under consideration for another MRI given the persistent shift in symptom patterns. - Onset: Persistent with exacerbation over the recent months. - Quality: Described as persistent pain, radiating to the left leg. - Location: Predominantly lower back with radiation to the left leg. - Activities Interfered: Significant impact on ambulation, particularly challenging when bending. - Exacerbating Factors: Walking, bending, changing positions, flexing forward, movements. - Alleviating Factors: Limited alleviation noted post-spinal stimulator removal. - Affect: Chronic pain substantially impacting mobility and comfort, with minimal resolution post-stimulator removal. - Analgesia: Currently utilizing Oxycodone; aims to manage pain but reports disabling left leg discomfort. - Adverse Effects: No specific adverse effects from current treatment reported. - Activities of Daily Living: Severely impacted at times, with difficulty maintaining ambulatory functions. - Aberrant Drug Related Behaviors: None reported. PRIOR: Patient is a pleasant 64-year-old male with history of lumbar degenerative disc disease, lumbar spinal stenosis, cervical disc disorder, recent Group B strep osteomyelitis, recent ischemic stroke without hemorrhage with residual right-sided weakness, fibromyalgia, history of cocaine use, lumbar radiculopathy, restless legs syndrome, diabetes, RADHA, [employer] spinal cord stimulator at [facility] (Dr. Benites, [facility]), presents today for initial evaluation of worsening low back pain with left-sided radiculopathy. Patient arrived through motorized scooter and uses cane to transfer to the chair. He is able to ambulate with a slow, antalgic and limping gait. Patient reports he has not used or charged his SCS device until yesterday. He reports it is working but not providing him significant pain relief for low back and left leg pain. Patient denies reaching out to [employer] congressional representative to check on his device. Patient was seen by DESI Schroeder once in December this year for osteomyelitis without follow up. Pain is constant, worse during the day and is rated at 10/10. Back pain is localized to his left side of lower lumbar spine with radiation into his left buttock and left groin and into his left lower extremity posteriorly with associated heaviness, numbness, burning and tingling. Pain affects his ADLs, mobility, mood, sleep, and social interactions. Patient was started on oxycodone by his PCP for chronic low back pain. Patient reports he tried gabapentin in the past with minimal effect. He recently completed [facility] rehab in April where he progressed with PT, OT and speech therapy s/p stroke and has regular follow ups with Neurology, Cardiology and PCP. He takes Plavix and aspirin. Patient reports he is considering to remove spinal cord stimulator but has not reached out to Dr. Benites as of yet. He reports he was offered back surgery in the past few years but declined it. Patient reports his back pain has been progressively worsening and debilitating that he is now considering surgical option. Patient is willing to follow-up with [employer] rep in our office to interrogate his device and reprogrammed it. Patient denies any fever or chills, abdominal pain, dyspnea, chest pain, bowel dysfunction or saddle anesthesia. Patient reports occasional urinary incontinence and is wearing depends. Most recent spine MRI imaging was reviewed with patient today and is noted below. Location: Lower back radiates down left buttock, groin and left lower extremity Duration: Chronic pain for over 5 years Characteristics of symptom or complaint: Aching, sharp, shooting, burning, stabbing, numbness, tingling Aggravating or associated factors: Any movement, walking, bending forward Relieving factors: Resting, oxycodone, heat, topical applications Treatment: [employer] lumbar SCS, physical therapy, motorized scooter/cane [facility] Medical History Osteomyelitis of lumbar spine Osteomyelitis of thoracic spine Heart failure Ischemic stroke Balanitis Osteomyelitis Moderate episode of recurrent major depressive disorder Restless leg syndrome History of cocaine use Essential (primary) hypertension CKD (chronic kidney disease) Hx of exertional chest pain Dry eye Other hyperlipidemia Urinary incontinence Lumbar radiculopathy COPD (chronic obstructive pulmonary disease) Diabetes Elevated alanine aminotransferase (ALT) level History of hepatitis B Hepatitis B immune Obstructive sleep apnea Fibromyalgia Hepatitis A immune Cervical disc disease Metabolic syndrome Cardiovascular event risk Surgical History Status post insertion of spinal cord stimulator Family History Father Prostate cancer Heart problem Mother Heart attack DM2 (diabetes mellitus, type 2) Sister Stomach cancer Brother Alzheimer disease Social History Household Members: Significant Other Housing: House Do you presently have visiting nurse or other home services: No Alcohol intake: current Alcohol intake frequency: does not drink Alcohol type: hard liquor Patient Tobacco Use Status: Current everyday Tobacco user Tobacco use type: Cigarette Cigarettes Per Day: 2 service: No Review of Systems Const Details: - Musculoskeletal: Reports significant left sided low back and left leg pain, back pain. - Neurological: Reports persistent right-sided weakness, improvement over time; denies new weakness. - Integumentary: Denies current incision site pain; reports well-healed incisions s/p SCS removal. All systems reviewed & are unremarkable except as noted in HPI and below Physical Exam Vital Signs: Last Vital Signs Pulse 101 H 02/21/25 13:20 BP 144/87 H 02/21/25 13:20 Pulse Ox 95 02/21/25 13:20 Oxygen Delivery Method Room Air 02/21/25 13:20 BMI result Body Mass Index 36.3 General: Appears afebrile. Alert and oriented. Mood and affect appropriate. Follows and participates in conversation appropriately. Respiratory effort is unlabored. No cough. Able to transition from sit to stand with assistance. Right lower extremity weakness h/o CVA. Transfers by motorized scooter. General: Yes no CVA tenderness Back/Spine/Pelvis Other: Limited lumbar ROM due to pain. Antalgic gait, with limping. Lumbar extension reproduces mild to moderate pain, lumbar flexion and bending reproduces moderate-severe pain. Demonstrates 4/5 right and 5/5 left strength of quadriceps bilaterally as well as flexion/dorsiflexion of bilateral feet against resistance. 2+ pedal pulses bilaterally. Straight leg rise with dorsiflexion negative bilaterally. Diminished patellar and achilles reflexes bilaterally. Facet loading test positive bilaterally. Limited Kervin?s and Stinchfield tests are positive bilaterally, left>right. No groin pain with I/E hip rotations. Inspection of incisions s/p SCS removal indicates good healing with no current inflammatory or infection signs. Back: no CVA tenderness Cervical Spine: cervical muscular tenderness, pain with cervical ROM and No Cervical spine tenderness Thoracic/Lumbar Spine: thoracic and lumbar spine normal to inspection, Thoracic/lumbar spine scar(s) (well healed incisions x2 s/p recent SCS removal), Lasegue's sign negative, straight leg raise negative bilaterally, pain with thoraco-lumbar ROM, paraspinal muscle tenderness, thoraco-lumbar ROM limited, No thoracic spinal tenderness and lumbar spinal tenderness (L4-S1) Pelvis: buttock tenderness (left>right) bilaterally Sacroiliac joints: bilaterally (left>right) Assessment & Plan Assessment & Plan (1) Lumbar radiculopathy: Comment: 05/31/2019 Code(s): M54.16 - Radiculopathy, lumbar region Category: Medical (2) Disc degeneration, lumbar: Code(s): M51.369 - Other intervertebral disc degeneration, lumbar region without mention of lumbar back pain or lower extremity pain Category: Medical (3) Lumbosacral spondylosis: Code(s): M47.817 - Spondylosis without myelopathy or radiculopathy, lumbosacral region Category: Medical (4) Vertebrogenic low back pain: Code(s): M54.51 - Vertebrogenic low back pain Category: Medical (5) Chronic low back pain: Code(s): M54.50 - Low back pain, unspecified; G89.29 - Other chronic pain Category: Medical (6) Sacroiliac joint pain: Code(s): M53.3 - Sacrococcygeal disorders, not elsewhere classified Category: Medical Plan An updated MRI is planned due to new symptomatology indicating possible left-sided radicular and discogenic concerns. The pain management regimen, including Oxycodone, will continue with his current prescriber. A follow-up appointment will be set post-imaging to assess results and guide treatment adjustments, considering the patient?s complex medical history. Potential non-invasive therapies and physical therapy will be revisited based on findings. All questions and concerns have been answered and patient agreed with the plan. Follow up for MRI results and sooner as needed. Patient was informed and verbally consented to the use of an ambient scribe for clinic note documentation during this visit. Orders: Orders MR lumbar spine wo con Today M47.817 - Spondylosis without myelopathy or radiculopathy, lumbosacral region, M51.369 - Other intervertebral disc degeneration, lumbar region without mention of lumbar back pain or lower extremity pain, M54.16 - Radiculopathy, lumbar region, M54.50 - Low back pain, unspecified, M54.51 - Vertebrogenic low back pain Medications: Refilled lidocaine 5% leave on most painful area for up to 12 hrs topically daily; 30 days 30 ea 0RF M47.817 - Spondylosis without myelopathy or radiculopathy, lumbosacral region, M48.07 - Spinal stenosis, lumbosacral region, M51.36 - Other intervertebral disc degeneration, lumbar region, M54.50 - Low back pain, unspecified, M79.605 - Pain in left leg Discontinued pregabalin Discontinued Reason: Patient no longer taking 50 mg PO BID 30 days 60 caps 0RF pain M48.07 - Spinal stenosis, lumbosacral region, M51.36 - Other intervertebral disc degeneration, lumbar region, M54.50 - Low back pain, unspecified, M79.605 - Pain in left leg Patient Instructions: I discussed with the patient the plan to conduct an updated MRI to assess the current symptoms, considering the left-sided pain's persistence and follow up on previous findings. The potential implications of existing conditions like fibromyalgia, stroke sequela, congestive heart failure, and diabetes on surgical and non-surgical management strategies were reviewed. We acknowledged the limited relief obtained post-stimulator removal and the importance of a comprehensive follow-up to potentially adjust his pain management strategy. - Schedule and complete the recommended MRI. - Continue current medications as prescribed. - Monitor pain levels and report any changes or new symptoms. - Follow-up appointment will be scheduled after MRI to review results. Coding Level of Care Code Est Pt Level 4 (89355) Complex EM visit Add On G2211 Diagnoses Lumbar radiculopathy M54.16 Disc degeneration, lumbar M51.369 Lumbosacral spondylosis M47.817 Vertebrogenic low back pain M54.51 Chronic low back pain M54.50; G89.29 Sacroiliac joint pain M53.3
[2025-02-21 13:20] VITALS: BP 144/87; PULSE 101; O2SAT 95; BMI 36.3
--- OUTSIDE RECORDS SUMMARY | 2025-02-21 14:16 | XMS_ITS | Encounter Summary ---
Author Organization [employer] Address [address] [place] [address] Care Team Providers Care Servicer Coin Machines Name Role Phone Piedad Pacheco MD Primary Care Provide r Reason for Visit * Reason Onset Date Comments Pt1 09/28/2024 Encounter Details Date Type Department Care Team ([facility] Contact Info) Description 09/28/2024 Telephone [facility] MEDICINE [address] [place], [place] [phone] Piedad Pacheco MD [address] [place] [address] Pt1 Social History Tobacco Use Types Packs/Day Years Used Date Smoking Tobacco: Never Assessed Alcohol Answer Date Recorded Frequency of Alcohol Consumption Not on file 07/14/2023 Average Number of Drinks Not on file 023 Frequency of Binge Drinking Not on file 12/2022 Score 0 07/14/2023 Depression Answer Date Recorded Patient Health Questionnaire-9 Score 0 07/14/2023 Housing Stability Answer Date Recorded What is your housing situation today? I have livyeison balderrama 08/10/[address] you li ve. Do you have problems with any of the following? None of the above 08/10/2023 Food Insecurity Answer Date Recorded Within the past 12 months, y ou worried that your food would run out before you got money to buy more: Never True 08/10/2023 Within the past 12 months,th e food you bought just didn't last and you didn't have enough money to get more: Never True Transportation Answer Date Recorded In the past 12 months, has l ack of transportation kept you from medical appts, meetings, work or from getting things needed for daily living? No 08/10/2023 Utilities Answer Date Recorded In the past 12 months, has t he electric, gas, oil or water company threatened to shut off services in your home? No 08/10/2023 Depression Answer Date Recorded Patient Health Questionnaire-2 Score 0 07/14/2023 Sex and Gender Information Value Date Recorded Sex Assigned at Male 08/11/2022 10:17 AM EDT Legal Sex Male 10:17 AM EDT Gender Identity Male 08/11/2022 10:17 AM EDT Sexual Orientation Straight 08/11/2022 10 :17 AM EDT documented as of this encounter Miscellaneous Notes * Telephone Encounter - Kay Garsia - 09/28/2024 12:55 PM EST Patient calling requesting PT1 Home Address verified: Y/N: Yes Provider name or facility name: [facility]rology Facility Address: [address] Escort needed: Y/N: Yes Do you have a wheelchair: Y/N: Yes If yes- Manual or electric: Electric Visits: 1 x 3 months Patient calling requesting PT1 Home Address verified: Y/N: Yes Provider name or facility name: [facility] Address: [address] [place] [id number] Escort needed: Y/N: Yes Do you have a wheelchair: Y/N: Yes If yes- Manual or electric: Electric Visits: 1 x 3 months * Telephone Encounter - Fox Gaona - 09/28/2024 12:49 PM EST Patient calling requesting PT1 Home Address verified: Y/N: Yes Provider name or facility name: Escort needed: Y/N: Yes Do you have a wheelchair: Y/N: Yes If yes- Manual or electric: Electric Visits: (amount of visits) ( x monthly, weekly, daily) documented in this encounter Plan of Treatment Upcoming Encounters Date Type Department Care Team (Late st Contact Info) Description 04/28/2025 9:00 AM EDT Telemedicine [facility] MEDICINE [address] [place] [address] Francy Melara RN 05/31/2025 2:00 PM EDT Office Visit [facility] OPTOMETRY [address] [place] [address] Shanika Israel, OD [address] [place] [address] documented as of this encounter Visit Diagnoses Not on filedocumented in this encounter Additional Health Concerns Assessment Noted Time PHQ-9 Depression Total Score: 0 07/14/20 23 11:16 AM EDT documented as of this encounter Care Teams Servicer Coin Machines Relationship Specialty Start Date End Date Piedad Pacheco MD [address] [place], [place] [phone] PCP - General Family Medicine 10/26/20 documented as of this encounter
--- OUTSIDE RECORDS SUMMARY | 2025-02-21 14:16 | XMS_ITS | Encounter Summary ---
Author Organization [employer] Address [address] [facility] [address] 7t [place] [address] Care Team Providers Care Manufacturing Storeperson Name Role Phone Piedad Pacheco MD Primary Care Provide r Encounter Details Date Type Department Care Team ([facility] st Contact Info) Description 09/23/2024 Telephone [facility] MEDICINE [address] [place], [place] [phone] Piedad Pacheco MD [address] [place], [place] [phone] Social History Tobacco Use Types Packs/Day Years [...] is your housing situation today? I have liv balderrama 08/10/[address] you [...] AM EDT documented as of this encounter Plan of Treatment Upcoming Encounters Date Type Department Care Team (Late st Contact Info) Description 04/28/2025 9:00 AM EDT Telemedicine [facility] MEDICINE [address] [place] [address] Francy Melara RN 05/31/2025 2:00 PM EDT Office Visit [facility] OPTOMETRY [address] [place], [place] [phone] Jhonatan, Shanika, OD 230 [place] [address] documented as of this encounter Visit Diagnoses Not on filedocumented in this encounter Additional Health Concerns Assessment Noted Time PHQ-9 Depression Total Score: 0 07/14/20 23 11:16 AM EDT documented as of this encounter Care Teams Manufacturing Storeperson Relationship Specialty Start Date End Date Piedad Pacheco MD [address] [place] [address] PCP - General Family Medicine 10/26/20 documented as of this encounter
--- OUTSIDE RECORDS SUMMARY | 2025-02-21 14:16 | XMS_ITS | Clinical Summary ---
Author Organization [facility] Address [address] [place] [address] Care Team Providers Care Therapist Name Role Phone Unknown Primary Care Provider [phone] Allergies No known active allergies Medications oxyCODONE-aceta minophen (PERCOCET) 5-325 mg per tablet Take 1 tablet by mouth 3 times daily (every 8 hours) as needed for moderate pain. Max Daily Amount: 3 tablets 12 tablet 05/15/2017 Active Social History Tobacco Use Types Packs/Day Years Used Date Smoking Tobacco: Never Assessed Sex and Gender Information Value Date Recorded Sex Assigned at Not on file Legal Sex Male 6:53 PM EDT Gender Identity Not on file Sexual Orientation Not on file Last Filed Vital Signs Vital Sign Reading Time Taken Comments Blood Pressure 144/83 05/15/2017 8:26 PM EDT Pulse 66 05/15/2017 8:26 PM EDT Temperature 36.8 ??C (98.3 ??F) 05/15/2017 7:08 PM ED T Respiratory Rate 16 05/15/2017 8:26 PM EDT Oxygen Saturation 97% 05/15/2017 8:26 PM EDT Inhaled Oxygen Concentration - - Weight - - Height - - Body Mass Index - - Plan of Treatment Health Maintenance Due Date Last Done Comments Hepatitis C Virus Screening 1961 HIV Screening 1974 DTaP/Tdap/Td Vaccines (1 - Tdap) 1980 Colonoscopy 2006 Pneumococcal Vaccines 50+ (1 of 1 - PCV) 2011 Zoster (Shingles) Vaccine (1 of 2) 2011 COVID-19 Vaccine ( - 2023-2 5 season) 2024 Influenza Vaccine 05/12/2025 RSV Vaccine 60 years and old er and Patients (1 - 1-dose 75+ series) 2036 Hepatitis B Vaccines Aged Out No long er eligible based on patient's age to complete this topic Insurance MEDICAID OUT OF STATE [facility] [place] [address] MEDICARE OUT OF NETWORK Care Teams Therapist Relationship Specialty Start Date End Date Unknown Unknow Provider Address PCP - General 05/15/17
--- OUTSIDE RECORDS SUMMARY | 2025-02-21 14:16 | XMS_ITS | Encounter Summary ---
Author Organization [employer] Address 75 [facility] 7t [place] [address] Care Team Providers Care Plastic Frame Inserter Name Role Phone Piedad Pacheco MD Primary Care Provide r Encounter Details Date Type Department Care Team (Late st Contact Info) Description 03/03/2023 Orders Only [facility] MED & PEDS [address] [place] [address] Jen Cortez LPN Social History Tobacco Use Types Packs/Day Years [...] Info) Description 04/28/2025 9:00 AM EDT Telemedicine [facility] MEDICINE 230 [place] [address] Francy Melara RN 05/31/2025 2:00 PM EDT Office Visit [facility] OPTOMETRY [address] [place] [address] Shanika Israel, OD 230 [place] [address] documented as of this encounter Visit Diagnoses Not on filedocumented in this encounter Care Teams Plastic Frame Inserter Relationship Specialty Start Date End Date Piedad Pacheco MD [address] [place] [address] PCP - General Family Medicine 10/26/20 documented as of this encounter
--- OUTSIDE RECORDS SUMMARY | 2025-02-21 14:16 | XMS_ITS | Encounter Summary ---
Author Organization [employer] Address [address] [facility] [address] 7[address] [place] [address] Care Team Providers Care Spot Welder Body Assembly Name Role Phone Piedad Pacheco MD Primary Care Provide r Encounter Details Date Type Department Care Team ([facility] st Contact Info) Description 09/30/2024 Orders Only [facility] MEDICINE [address] [place], [place] [phone] Piedad Pacheco MD 230 [place] [address] Social History Tobacco Use Types Packs/Day Years [...] Info) Description 04/28/2025 9:00 AM EDT Telemedicine [facility] MEDICINE [address] [place] [address] Francy Melara RN 05/31/2025 2:00 PM EDT Office Visit [facility] OPTOMETRY [address] [place], [place] [phone] Jhonatan, Shanika, OD [address] [place] [address] documented as of this encounter Visit Diagnoses Not on filedocumented in this encounter Additional Health Concerns Assessment Noted Time PHQ-9 Depression Total Score: 0 07/14/20 23 11:16 AM EDT documented as of this encounter Care Teams Spot Welder Body Assembly Relationship Specialty Start Date End Date Piedad Pacheco MD [address] [place] [address] PCP - General Family Medicine 10/26/20 documented as of this encounter
--- OUTSIDE RECORDS SUMMARY | 2025-02-21 14:16 | XMS_ITS | Encounter Summary ---
Author Organization [employer] Address 75 [facility] 7t [place] [address] Care Team Providers Care Christian Counselor Name Role Phone Piedad Pacheco MD Primary Care Provide r Reason for Visit * Reason Onset Date Comments Med Refill 10/28/2024 Encounter Details Date Type Department Care Team ([facility] st Contact Info) Description 10/28/2024 Telephone [facility] MEDICINE [address] [place] [address] Piedad Pacheco MD [address] [place] [address] Med Refill Social History Tobacco Use Types Packs/Day Years Used Date Smoking Tobacco: Some Days Cigarettes Passive Smoke Exposure: Current Smokeless Tobacco: Never Alcohol Use Standard Drinks/Week Comments Never 0 (1 standard drink = 0.6 oz pur e alcohol) Alcohol Answer Date Recorded Frequency of Alcohol Consumption Not on file 07/14/2023 Average Number of Drinks Not on file 023 Frequency of Binge Drinking Not on file 12/2022 Score 0 07/14/2023 Depression Answer Date Recorded Patient Health Questionnaire-9 Score 0 10/19/2024 Patient Health Questionnaire-9 Score 0 10/19/2024 Last PHQ-9: Questionnaire Data Not on file 0 10/19/2024 Housing Stability Answer Date Recorded What is your housing situation today? I have liv balderrama 10/19/[address] you li ve. Do you have problems with any of the following? None of the above 10/19/2024 Food Insecurity Answer Date Recorded Within the past 12 months, y ou worried that your food would run out before you got money to buy more: Never True 10/19/2024 Within the past 12 months,th e food you bought just didn't last and you didn't have enough money to get more: Never True 05/2025 Transportation Answer Date Recorded In the past 12 months, has l ack of transportation kept you from medical appts, meetings, work or from getting things needed for daily living? No 10/19/2024 Utilities Answer Date Recorded In the past 12 months, has t he electric, gas, oil or water company threatened to shut off services in your home? No 10/19/2024 Depression Answer Date Recorded Patient Health Questionnaire-2 Score 0 10/19/2024 Internet Access Answer Date Recorded Internet Access Q1 Yes 10/19/2024 Internet Access Q2 Not on file 10/19/2024 Sex and Gender Information Value Date Recorded Sex Assigned at Male 08/11/2022 10:17 AM EDT Legal Sex Male 10:17 AM EDT Gender Identity Male 08/11/2022 10:17 AM EDT Sexual Orientation Straight 08/11/2022 10 :17 AM EDT documented as of this encounter Miscellaneous Notes * Telephone Encounter - Jen Cortez LPN - 10/28/2024 3:19 PM EST Medication was sent to [place] [id number] on 10/20/24. * Telephone Encounter - Marguerite Irvin - 10/28/2024 3:17 PM EST TC from pt requesting medication refill. Medications needing refill : loratadine (Claritin) 10 MG tablet To be sent to: [facility] [address] [place] [address] documented in this encounter Plan of Treatment Upcoming Encounters Date Type Department Care Team (Late st Contact Info) Description 04/28/2025 9:00 AM EDT Telemedicine [address] [phone] Francy Melara RN 05/31/2025 2:00 PM EDT Office Visit [facility] OPTOMETRY [address] [place] [address] Shanika Israel, OD [address] [place] [address] documented as of this encounter Visit Diagnoses Not on filedocumented in this encounter Additional Health Concerns Assessment Noted Time PHQ-9 Depression Total Score: 0 10/19/19 25 10:23 AM EST documented as of this encounter Care Teams Christian Counselor Relationship Specialty Start Date End Date Piedad Pacheco MD [address] [place], [place] [phone] PCP - General Family Medicine 10/26/20 documented as of this encounter
--- OUTSIDE RECORDS SUMMARY | 2025-02-21 14:16 | XMS_ITS | Encounter Summary ---
Author Organization [employer] Address 75 [facility] 7t [place] [address] Care Team Providers Care Low Pressure Firer Name Role Phone Piedad Pacheco MD Primary Care Provide r Reason for Visit * Reason Comments Med Refill Encounter Details Date Type Department Care Team (Late Contact Info) Description 06/08/2023 Refill [facility] MEDICINE [address] [place] [address] Name, MD Juno [address] [place] [address] Social History Tobacco Use Types Packs/Day Years [...] Encounters Date Type Department Care Team (Late Contact Info) Description 04/28/2025 9:00 AM EDT Telemedicine [facility] MEDICINE [address] [place] [address] Francy Melara RN 05/31/2025 2:00 PM EDT Office Visit [facility] OPTOMETRY [address] [place], [place] [phone] Shanika Israel, OD [address] [place] [address] documented as of this encounter Visit Diagnoses Not on filedocumented in this encounter Care Teams Low Pressure Firer Relationship Specialty Start Date End Date Piedad Pacheco MD [address] [place] [address] PCP - General Family Medicine 10/26/20 documented as of this encounter
--- OUTSIDE RECORDS SUMMARY | 2025-02-21 14:16 | XMS_ITS | Encounter Summary ---
Author Organization [employer] Address 75 [facility] 7t [place] [address] Care Team Providers Care Thread Dresser Name Role Phone Piedad Pacheco MD Primary Care Provide r Encounter Details Date Type Department Care Team ([facility] st Contact Info) Description 10/28/2024 Telephone [facility] MEDICINE [address] [place], [place] [phone] Piedad Pacheco MD 230 [place], [place] [phone] Social History Tobacco Use Types Packs/Day Years [...] Info) Description 04/28/2025 9:00 AM EDT Telemedicine [facility] MEDICINE [address] [place] [address] Francy Melara RN 05/31/2025 2:00 PM EDT Office Visit [facility] OPTOMETRY [address] [place] [address] Jhonatan, Shanika, OD 230 [place] [address] documented as of this encounter Visit Diagnoses Not on filedocumented in this encounter Additional Health Concerns Assessment Noted Time PHQ-9 Depression Total Score: 0 10/19/19 25 10:23 AM EST documented as of this encounter Care Teams Thread Dresser Relationship Specialty Start Date End Date Piedad Pacheco MD 230 [place] [address] PCP - General Family Medicine 10/26/20 documented as of this encounter
--- OUTSIDE RECORDS SUMMARY | 2025-02-21 14:16 | XMS_ITS | Encounter Summary ---
Author Organization [employer] Address 75 [facility] 7t [place] [address] Care Team Providers Care Highway Inspector Name Role Phone Piedad Pacheco MD Primary Care Provide r Encounter Details Date Type Department Care Team ([facility] st Contact Info) Description 11/22/2024 Telephone [facility] MEDICINE [address] [place], [place] [phone] Piedad Pacheco MD [address] [place] [address] Social History Tobacco Use Types Packs/Day Years [...] Info) Description 04/28/2025 9:00 AM EDT Telemedicine [facility] MEDICINE [address] [place] [address] Francy Melara RN 05/31/2025 2:00 PM EDT Office Visit [facility] OPTOMETRY [address] [place] [address] Jhonatan, Shanika, OD [address] [place] [address] documented as of this encounter Visit Diagnoses Not on filedocumented in this encounter Additional Health Concerns Assessment Noted Time PHQ-9 Depression Total Score: 0 10/19/19 25 10:23 AM EST documented as of this encounter Care Teams Highway Inspector Relationship Specialty Start Date End Date Piedad Pacheco MD [address] [place] [address] PCP - General Family Medicine 10/26/20 documented as of this encounter
--- OUTSIDE RECORDS SUMMARY | 2025-02-21 14:16 | XMS_ITS | Encounter Summary ---
Author Organization [employer] Address 75 [facility] 7t [place] [address] Care Team Providers Care Product Engineering Manager Name Role Phone Piedad Pacheco MD Primary Care Provide r Reason for Visit * Reason Onset Date Comments Medication Question 06/26/2023 Encounter Details Date Type Department Care Team ([facility] Contact Info) Description 06/26/2023 Telephone [facility] MEDICINE [address] [place], [place] [phone] Piedad Pacheco MD [address] [place] [address] Medication Question Social History Tobacco Use Types Packs/Day Years Used Date Smoking Tobacco: Never Assessed Sex and Gender Information Value Date Recorded Sex Assigned at Male 08/11/2022 10:17 AM EDT Legal Sex Male 10:17 AM EDT Gender Identity Male 08/11/2022 10:17 AM EDT Sexual Orientation Straight 08/11/2022 10 :17 AM EDT documented as of this encounter Miscellaneous Notes * Telephone Encounter - Francy Melara RN - 06/26/2023 11:07 AM EDT Return TC to pharmacy, spoke with Dwayne, reviewed diagnosis PCP included with Oxycodone Rx and DXof Chronic back pain in PCP note. Pharmacists states they are required to ask and add to the patients profile if patient will be referred to a pain management program or has he attempted alternative therapies. Explained to pharmacist that I would speak with the PCP when she returned. * Telephone Encounter - Trell Girard - 06/26/2023 10:13 AM EDT Tc from [facility] requesting a call from a nurse to speak about medication oxyCODONE (Roxicodone) 10 MG immediate release tablet. Pharmacy would like to know the chronic pain pt is having and why script is being receive with 7 days. Please contact Pharmacy at [phone] documented in this encounter Plan of Treatment Upcoming Encounters Date Type Department Care Team (Late st Contact Info) Description 04/28/2025 9:00 AM EDT Telemedicine [facility] MEDICINE [address] [place] [address] Francy Melara RN 05/31/2025 2:00 PM EDT Office Visit [facility] OPTOMETRY [address] [place], [place] [phone] Shanika Israel, OD 230 [place] [address] documented as of this encounter Visit Diagnoses Not on filedocumented in this encounter Additional Health Concerns Assessment Noted Time PHQ-9 Depression Total Score: 0 06/19/20 23 1:27 PM EDT documented as of this encounter Care Teams Product Engineering Manager Relationship Specialty Start Date End Date Piedad Pacheco MD [address] [place] [address] PCP - General Family Medicine 10/26/20 documented as of this encounter
--- OUTSIDE RECORDS SUMMARY | 2025-02-21 14:16 | XMS_ITS | Encounter Summary ---
Author Organization [employer] Address 75 [facility] 7t [place] [address] Care Team Providers Care Gallery Manager Name Role Phone Piedad Pacheco MD Primary Care Provide r Reason for Visit * Reason Onset Date Comments PT-1 10/28/2024 Encounter Details Date Type Department Care Team ([facility] st Contact Info) Description 10/28/2024 Telephone [facility] MEDICINE [address] [place] [address] Piedad Pacheco MD [address] [place] [address] PT-1 Social History Tobacco Use Types Packs/Day Years [...] encounter Miscellaneous Notes * Telephone Encounter - Jessi Robison - 11/08/2024 2:28 PM EST Tc from pt requesting status of PT-1 UPDATED PT-1 INFO [facility] Radiology APPROVED [address] 2x visits a month expires 11/07/25 * Telephone Encounter - Jessi Robison - 11/01/2024 2:47 PM EST Tc from pt requesting status of PT-1 as requesting a callback [phone] * Telephone Encounter - Fox Gaona - 10/28/2024 11:04 AM EST Patient calling requesting PT1 Home Address verified: Y/N: Yes Provider name or facility name: [facility] Escort needed: Y/N: No Do you have a wheelchair: Y/N: Yes If yes- Manual or electric: Electric Scooter Visits: (amount of visits) ( x monthly, weekly, daily) 3 times a month documented in this encounter Plan of Treatment Upcoming Encounters Date Type Department Care Team (Late st Contact Info) Description 04/28/2025 9:00 AM EDT Telemedicine [facility] MEDICINE [address] [place] [address] Francy Melara RN 05/31/2025 2:00 PM EDT Office Visit [facility] OPTOMETRY [address] [place] [address] Shanika Israel, OD [address] [place] [address] documented as of this encounter Visit Diagnoses Not on filedocumented in this encounter Additional Health Concerns Assessment Noted Time PHQ-9 Depression Total Score: 0 10/19/19 25 10:23 AM EST documented as of this encounter Care Teams Gallery Manager Relationship Specialty Start Date End Date Piedad Pacheco MD [address] [place] [address] PCP - General Family Medicine 10/26/20 documented as of this encounter
--- OUTSIDE RECORDS SUMMARY | 2025-02-21 14:16 | XMS_ITS | Encounter Summary ---
Author Organization [employer] Address 75 [facility] 7t [place] [address] Care Team Providers Care Blind Cleaner Name Role Phone Piedad Pacheco MD Primary Care Provide r Encounter Details Date Type Department Care Team (Late st Contact Info) Description 03/31/2023 Orders Only [facility] CHC MED & PEDS [address] [place] [address] Jen Cortez LPN Social History Tobacco Use [...] Info) Description 04/28/2025 9:00 AM EDT Telemedicine [facility] MEDICINE [address] [place] [address] Francy Melara RN 05/31/2025 2:00 PM EDT Office Visit [facility] OPTOMETRY [address] [place] [address] Shanika Israel, OD [address] [place] [address] documented as of this encounter Visit Diagnoses Not on filedocumented in this encounter Care Teams Blind Cleaner Relationship Specialty Start Date End Date Piedad Pacheco MD [address] [place] [address] PCP - General Family Medicine 10/26/20 documented as of this encounter
--- OUTSIDE RECORDS SUMMARY | 2025-02-21 14:17 | XMS_ITS | Encounter Summary ---
Author Organization [employer] Address 75 [facility] 7t [place] [address] Care Team Providers Care Public Administration Professor Name Role Phone Piedad Pacheco MD Primary Care Provide r Reason for Visit * Reason Comments Med Refill Encounter Details Date Type Department Care Team ([facility] st Contact Info) Description 02/12/2024 Refill [facility] MEDICINE [address] [place], [place] [phone] Piedad Pacheco MD [address] [place] [address] Insomnia, unspecified type Social History Tobacco Use Types Packs/Day Years [...] Info) Description 04/28/2025 9:00 AM EDT Telemedicine [facility] MEDICINE [address] [place] [address] Francy Melara RN 05/31/2025 2:00 PM EDT Office Visit [facility] OPTOMETRY [address] [place], [place] [phone] Jhonatan, Shanika, OD [address] [place] [address] documented as of this encounter Visit Diagnoses Diagnosis Insomnia, unspecified type documented in this encounter Additional Health Concerns Assessment Noted Time PHQ-9 Depression Total Score: 0 07/14/20 23 11:16 AM EDT documented as of this encounter Care Teams Public Administration Professor Relationship Specialty Start Date End Date Piedad Pacheco MD [address] [place] [address] PCP - General Family Medicine 10/26/20 documented as of this encounter
--- OUTSIDE RECORDS SUMMARY | 2025-02-21 14:17 | XMS_ITS | Encounter Summary ---
Author Organization [employer] Address 75 [facility] 7t [place] [address] Care Team Providers Care Supervisor Forming Department Name Role Phone Piedad Pacheco MD Primary Care Provide r Reason for Visit * Reason Onset Date Comments Med Refill 02/08/2024 Encounter Details Date Type Department Care Team ([facility] Contact Info) Description 02/08/2024 Telephone [facility] MEDICINE [address] [place] [address] Piedad Pacheco MD [address] [place] [address] Med Refill Social History Tobacco Use Types [...] Telephone Encounter - Jen Cortez LPN - 02/08/2024 10:24 AM EDT Medication was sent to [facility] 2386 on 09/18/23 90 day supply with 1 refill. * Telephone Encounter - Chris Briggs - 02/08/2024 9:59 AM EDT TC from pt requesting medication refill. Medications needing refill: rOPINIRole (Requip) 2 MG tablet To be sent to: [id number] documented in this encounter Plan of Treatment Upcoming Encounters Date Type Department Care Team (Late st Contact Info) Description 04/28/2025 9:00 AM EDT Telemedicine [facility] MEDICINE [address] [place] [address] Francy Melara RN 05/31/2025 2:00 PM EDT Office Visit [facility] OPTOMETRY [address] [place], [place] [phone] Shanika Israel, MELLISA [address] [place] [address] documented as of this encounter Visit Diagnoses Not on filedocumented in this encounter Additional Health Concerns Assessment Noted Time PHQ-9 Depression Total Score: 0 07/14/20 23 11:16 AM EDT documented as of this encounter Care Teams Supervisor Forming Department Relationship Specialty Start Date End Date Piedad Pacheco MD [address] [place] [address] PCP - General Family Medicine 10/26/20 documented as of this encounter
--- OUTSIDE RECORDS SUMMARY | 2025-02-21 14:17 | XMS_ITS | Encounter Summary ---
Author Organization [employer] Address 75 [facility] 7t [place] [address] Care Team Providers Care Drop Machine Operator Name Role Phone Piedad Pacheco MD Primary Care Provide r Encounter Details Date Type Department Care Team (Late st Contact Info) Description 01/28/2023 Orders Only [facility] CHC MED & PEDS [address] [place] [address] Jen Cortez LPN Social History Tobacco Use [...] Info) Description 04/28/2025 9:00 AM EDT Telemedicine [facility] MEDICINE [address] [place] [address] Francy Melara RN 05/31/2025 2:00 PM EDT Office Visit [facility] OPTOMETRY [address] [place] [address] Shanika Israel, OD [address] [place] [address] documented as of this encounter Visit Diagnoses Not on filedocumented in this encounter Care Teams Drop Machine Operator Relationship Specialty Start Date End Date Piedad Pacheco MD [address] [place] [address] PCP - General Family Medicine 10/26/20 documented as of this encounter
--- OUTSIDE RECORDS SUMMARY | 2025-02-21 14:17 | XMS_ITS | Encounter Summary ---
Author Organization [employer] Address 75 [facility] 7t [place] [address] Care Team Providers Care Pharmacognosist Name Role Phone Piedad Pacheco MD Primary Care Provide r Reason for Visit * Reason Onset Date Comments Med Refill 01/29/2024 Encounter Details Date Type Department Care Team ([facility] Contact Info) Description 01/29/2024 Telephone [facility] MEDICINE [address] [place] [address] Piedad Pacheco MD 230 [place] [address] Med Refill Social History Tobacco Use Types [...] encounter Miscellaneous Notes * Telephone Encounter - Lauryn Greer - 01/29/2024 3:41 PM EDT TC from pt requesting medication refill. Medications needing refill : zolpidem (Ambien) 10 MG tablet To be sent to: [facility] [address] [place] [address] documented in this encounter Plan of Treatment Upcoming Encounters Date Type Department Care Team (Late st Contact Info) Description 04/28/2025 9:00 AM EDT Telemedicine [facility] MEDICINE [address] [place] [address] Francy Melara RN 05/31/2025 2:00 PM EDT Office Visit [facility] OPTOMETRY [address] [place] [address] Shanika Israel, OD 230 [place] [address] documented as of this encounter Visit Diagnoses Not on filedocumented in this encounter Additional Health Concerns Assessment Noted Time PHQ-9 Depression Total Score: 0 07/14/20 23 11:16 AM EDT documented as of this encounter Care Teams Pharmacognosist Relationship Specialty Start Date End Date Piedad Pacheco MD [address] [place] [address] PCP - General Family Medicine 1/15/21 documented as of this encounter
--- OUTSIDE RECORDS SUMMARY | 2025-02-21 14:17 | XMS_ITS | Encounter Summary ---
Author Organization [employer] Address 75 [facility] 7t [place] [address] Care Team Providers Care Level Designer Name Role Phone Piedad Pacheco MD Primary Care Provide r Reason for Visit * Reason Onset Date Comments Med Refill 08/31/2024 Encounter Details Date Type Department Care Team ([facility] Contact Info) Description 08/31/2024 Telephone [facility] MEDICINE [address] [place] [address] Piedad Pacheco MD [address] [place] [address] Med Refill Social History Tobacco Use Types [...] encounter Miscellaneous Notes * Telephone Encounter - Stefania Castle - 08/31/2024 10:56 AM EST TC from pt requesting medication refill. Medications needing refill : oxyCODONE (Roxicodone) 5 MG immediate release tablet To be sent to: [facility] [address] [place] [address] documented in this encounter Plan of Treatment Upcoming Encounters Date Type Department Care Team (Late st Contact Info) Description 04/28/2025 9:00 AM EDT Telemedicine [facility] MEDICINE [address] [place] [address] Francy Melara RN 05/31/2025 2:00 PM EDT Office Visit [facility] OPTOMETRY [address] [place] [address] Shanika Israel, OD [address] [place] [address] documented as of this encounter Visit Diagnoses Not on filedocumented in this encounter Additional Health Concerns Assessment Noted Time PHQ-9 Depression Total Score: 0 07/14/20 23 11:16 AM EDT documented as of this encounter Care Teams Level Designer Relationship Specialty Start Date End Date Piedad Pacheco MD [address] [place] [address] PCP - General Family Medicine 10/26/20 documented as of this encounter
--- OUTSIDE RECORDS SUMMARY | 2025-02-21 14:17 | XMS_ITS | Encounter Summary ---
Author Organization [employer] Address [address] [facility] 7t [place] [address] Care Team Providers Care Bee Rancher Name Role Phone Piedad Pacheco MD Primary Care Provide r Encounter Details Date Type Department Care Team (Latest Contact Info) Description 07/15/2021 Abstract [facility] CONVERSIONS Dental, Provider, DDS Social History Tobacco Use Types Packs/Day Years [...] Description 04/28/2025 9:00 AM EDT Telemedicine [facility] MEDICINE [address] [place] [address] Francy Melara RN 05/31/2025 2:00 PM EDT Office Visit [facility] OPTOMETRY [address] [place] [address] Jhonatan, Shanika, OD [address] [place] [address] documented as of this encounter Visit Diagnoses Not on filedocumented in this encounter Care Teams Bee Rancher Relationship Specialty Start Date End Date Piedad Pacheco MD 230 [place] [address] PCP - General Family Medicine 10/26/20 documented as of this encounter
--- OUTSIDE RECORDS SUMMARY | 2025-02-21 14:17 | XMS_ITS | Encounter Summary ---
Author Organization [employer] Address [address] [facility] 7t [place] [address] Care Team Providers Care Pharmacists Name Role Phone Piedad Pacheco MD Primary Care Provide r Encounter Details Date Type Department Care Team (Late st Contact Info) Description 11/07/2022 Orders Only [facility] CHC MED & PEDS [address] [place] [address] Jen Cortez LPN Social History Tobacco Use [...] Info) Description 04/28/2025 9:00 AM EDT Telemedicine [facility] MEDICINE [address] [place] [address] Francy Melara RN 05/31/2025 2:00 PM EDT Office Visit [facility] OPTOMETRY [address] [place] [address] Shanika Israel, OD [address] [place] [address] documented as of this encounter Visit Diagnoses Not on filedocumented in this encounter Care Teams Pharmacists Relationship Specialty Start Date End Date Piedad Pacheco MD 230 [place] [address] PCP - General Family Medicine 10/26/20 documented as of this encounter
--- OUTSIDE RECORDS SUMMARY | 2025-02-21 14:17 | XMS_ITS | Encounter Summary ---
Author Organization [employer] Address 75 [facility] 7t [place] [address] Care Team Providers Care Web Operations Specialist Name Role Phone Piedad Pacheco MD Primary Care Provide r Reason for Visit * Reason Onset Date Comments Med Refill 09/26/2024 Encounter Details Date Type Department Care Team ([facility] Contact Info) Description 09/26/2024 Telephone [facility] MEDICINE [address] [place] [address] Piedad Pacheco MD [address] [place] [address] Med Refill Social History Tobacco Use Types [...] Telephone Encounter - Francy Melara RN - 09/26/2024 1:14 PM EST Per Elizabeth, oxycodone last picked up 09/04/24. Refill due 10/02/24. Will forward to PCP on 09/30/24. * Telephone Encounter - Stefania Catsle - 09/26/2024 1:01 PM EST TC from pt requesting medication refill. Medications needing refill : oxyCODONE (Roxicodone) 5 MG immediate release tablet To be sent to: [facility] [address] [place] [address] documented in this encounter Plan of Treatment Upcoming Encounters Date Type Department Care Team (Late st Contact Info) Description 04/28/2025 9:00 AM EDT Telemedicine [facility] MEDICINE [address] [place] [address] Francy Melara RN 05/31/2025 2:00 PM EDT Office Visit [facility] OPTOMETRY [address] [place] [address] Jhonatan, Shanika, OD [address] [place] [address] documented as of this encounter Visit Diagnoses Not on filedocumented in this encounter Additional Health Concerns Assessment Noted Time PHQ-9 Depression Total Score: 0 07/14/20 23 11:16 AM EDT documented as of this encounter Care Teams Web Operations Specialist Relationship Specialty Start Date End Date Piedad Pacheco MD [address] [place] [address] PCP - General Family Medicine 10/26/20 documented as of this encounter
--- OUTSIDE RECORDS SUMMARY | 2025-02-21 14:17 | XMS_ITS | Encounter Summary ---
Author Organization [employer] Address [address] [facility] [address] 7[address] [place] [address] Care Team Providers Care Associate Sales Name Role Phone Piedad Pacheco MD Primary Care Provide r Encounter Details Date Type Department Care Team ([facility] st Contact Info) Description 02/12/2024 Telephone [facility] MEDICINE [address] [place], [place] [phone] Piedad Pacheco MD [address] [place], [place] [phone] Social History Tobacco Use Types Packs/Day Years [...] Info) Description 04/28/2025 9:00 AM EDT Telemedicine [facility] MEDICINE [address] [place] [address] Francy Melara RN 05/31/2025 2:00 PM EDT Office Visit [facility] OPTOMETRY [address] [place], [place] [phone] Jhonatan, Shanika, OD [address] [place] [address] documented as of this encounter Visit Diagnoses Not on filedocumented in this encounter Additional Health Concerns Assessment Noted Time PHQ-9 Depression Total Score: 0 07/14/20 23 11:16 AM EDT documented as of this encounter Care Teams Associate Sales Relationship Specialty Start Date End Date Piedad Pacheco MD 230 [place] [address] PCP - General Family Medicine 10/26/20 documented as of this encounter
--- OUTSIDE RECORDS SUMMARY | 2025-02-21 14:17 | XMS_ITS | Encounter Summary ---
Author Organization [employer] Address [address] [facility] [address] [place] [address] Care Team Providers Care Barrel Maker Name Role Phone Piedad Pacheco MD Primary Care Provide r Reason for Visit * Reason Comments Med Refill Encounter Details Date Type Department Care Team ([facility] st Contact Info) Description 02/10/2024 Refill [facility] MEDICINE [address] [place], [place] [phone] Doris Dunne MD [address] [place], [place] [phone] Restless leg syndrome Social History Tobacco Use Types Packs/Day Years [...] Info) Description 04/28/2025 9:00 AM EDT Telemedicine [facility] MEDICINE [address] [place] [address] Francy Melara RN 05/31/2025 2:00 PM EDT Office Visit [facility] OPTOMETRY [address] [place] [address] Jhonatan, Shanika, OD [address] [place] [address] documented as of this encounter Visit Diagnoses Diagnosis Restless leg syndrome Restless legs syndrome (RLS) documented in this encounter Additional Health Concerns Assessment Noted Time PHQ-9 Depression Total Score: 0 07/14/20 23 11:16 AM EDT documented as of this encounter Care Teams Barrel Maker Relationship Specialty Start Date End Date Pieadd Pacheco MD [address] [place] [address] PCP - General Family Medicine 10/26/20 documented as of this encounter
--- OUTSIDE RECORDS SUMMARY | 2025-02-21 14:17 | XMS_ITS | Encounter Summary ---
Author Organization [employer] Address 75 [facility] 7t [place] [address] Care Team Providers Care Air Conditioning Equipment Mechanic Name Role Phone Piedad Pacheco MD Primary Care Provide r Encounter Details Date Type Department Care Team (Late st Contact Info) Description 01/09/2023 Orders Only [facility] CHC MED & PEDS [address] [place] [address] Jen Cortez LPN Social History Tobacco Use [...] Info) Description 04/28/2025 9:00 AM EDT Telemedicine [facility] MEDICINE [address] [place] [address] Francy Melara RN 05/31/2025 2:00 PM EDT Office Visit [facility] OPTOMETRY [address] [place] [address] Shanika Israel, OD [address] [place] [address] documented as of this encounter Visit Diagnoses Not on filedocumented in this encounter Care Teams Air Conditioning Equipment Mechanic Relationship Specialty Start Date End Date Piedad Pacheco MD [address] [place] [address] PCP - General Family Medicine 10/26/20 documented as of this encounter
--- OUTSIDE RECORDS SUMMARY | 2025-02-21 14:17 | XMS_ITS | Clinical Summary ---
Author Organization [employer] [facility] Address [address] [place] [address] Care Team Providers Care Catalog Library Assistant Name Role Phone Piedad Pacheco MD Primary Care Provide r Medications Medication Sig Dispensed Refills Start Date End Date Status metFORMIN (GLUCOPHAGE) tablet 500 mg Take 1 tablet (500 mg total) by mouth 2 (two) times a day with meals. 0 Active rOPINIRole (REQUIP) 2 MG tablet Take 1 tablet (2 mg total) by mouth 3 (three) times a day. 0 Active aspirin EC 81 MG tablet Take 1 tablet (81 mg total) by mouth daily. 0 Active baclofen (LIORESAL) 10 MG tablet Take 0.5 tablets (5 mg total) by mouth 3 (three) times a day. 0 Active tamsulosin (FLOMAX) 0.4 MG CAPS Take 1 capsule (0.4 mg total) by mouth daily. 0 Active zolpidem (AMBIEN) 5 MG tablet Take 2 tablets (10 mg total) by mouth every night at bedtime as needed for sleep. 0 Active oxyCODONE (OXY-IR) 5 MG capsule Take 1 capsule (5 mg total) by mouth every 4 (four) hours as needed for pain. 0 Active atorvastatin (LIPITOR) tablet 80 mg Take 1 tablet (80 mg total) by mouth every evening. 30 tablet 0 03/25/2024 Active polyethylene glycol (MIRALAX) 17 g packet Take 17 g by mouth daily as needed (prn constipation). 14 each 0 03/25/2024 Active senna (SENOKOT) 8.6 MG tablet Take 1 tablet by mouth daily as needed for constipation. 14 tablet 0 03/25/2024 Active dapagliflozin (FARXIGA) 10 MG tablet Take 1 tablet (10 mg total) by mouth daily. Take 1 tablet by mouth daily. Please do not take this medication if BP < 120/60 mmHg (avoid hypotension given the stroke) 90 tablet 1 03/25/2024 Active Active Problems Problem Noted Date Diagnosed Date Stroke due to stenosis of cerebral artery 2023 Social History Tobacco Use Types Packs/Day Years Used Date Smoking Tobacco: Never Assessed Sex and Gender Information Value Date Recorded Sex Assigned at Male 03/22/2024 12:52 AM EDT Gender Identity Not on file Sexual Orientation Not on file Job Start Date Occupation Industry Not on file Not on file Not on file Last Filed Vital Signs Vital Sign Reading Time Taken Comments Blood Pressure 95/62 03/25/2024 3:26 PM EDT Pulse 86 03/25/2024 3:26 PM EDT Temperature 36.6 ??C (97.9 ??F) 03/25/2024 11:00 AM E DT Respiratory Rate 16 03/25/2024 3:26 PM EDT Oxygen Saturation 95% 03/25/2024 3:26 PM EDT Inhaled Oxygen Concentration - - Weight 102.1 kg (225 lb) 03/23/2024 4:05 AM EDT Height 167.6 cm (5' 6 ) 03/22/2024 2:05 PM EDT Body Mass Index 36.32 03/22/2024 2:05 PM EDT Plan of Treatment Health Maintenance Due Date Last Done Comments Hepatitis C Screening 1961 COVID-19 Vaccine (#1) 1961 Depression Screening 1973 BMI Counseling 1979 Preventative Health Evaluation 1979 Colon Cancer Screening (Colonoscopy) 2006 Shingrix-Zoster Vaccine (1 of 2) 2011 Pneumococcal Vaccine (2 of 2 - PCV) 08/29/2020 08/29/2019, 04/23/2015 Influenza Vaccine (#1) 2024 2, 08/29/2019, 07/23/2017, Additional history exists DTap / Tdap / Td (3 - Td or Tdap) 06/11/2027 06/11/2017, 08/23/2013 RSV Adult > 60+ Yrs or (1 - 1-dose 75+ series) 2036 Hepatitis B Vaccines Aged Out No long er eligible based on patient's age to complete this topic RSV Ped < 20 months Aged Out No longe r eligible based on patient's age to complete this topic Advance Directives For more information, please contact: [phone] Latest Code Status on File Code Status Date Activated Date Inactivated Comments Full Code 03/22/2024 2:04 AM 03/26/2024 1:02 AM This code status was ascertained in the following way: discussion with patient . Care Teams Catalog Library Assistant Relationship Specialty Start Date End Date Piedad Pacheco MD [address] [place] [phone] PCP - General Internal Medicine 03/21/24
--- OUTSIDE RECORDS SUMMARY | 2025-02-21 14:17 | XMS_ITS | Encounter Summary ---
Author Organization [employer] Address 75 [facility] 7t [place] [address] Care Team Providers Care Locksmith Name Role Phone Piedad Pacheco MD Primary Care Provide r Reason for Visit * Reason Onset Date Comments PT1 05/03/2024 Encounter Details Date Type Department [facility] Info[facility] Description 05/03/[address] [facility] MEDICINE [address] [place], [place] [phone] Piedad Pacheco MD [address] [place] [address] PT1 Social History Tobacco Use Types Packs/Day Years [...] * Telephone Encounter - Stefania Castle - 05/03/2024 1:43 PM EDT Patient calling requesting PT1 Home Address verified: Y/N: Yes Provider name or facility name: Facility Address: [address] [place] [address] [address] [place] [address] Escort needed: Y/N: Yes will be going with pt Do you have a wheelchair: Y/N: Yes If yes- Manual or electric: electric Visits: 4-5 times a year documented in this encounter Plan of Treatment Upcoming Encounters Date Type Department Care Team (Late st Contact Info) Description 04/28/2025 9:00 AM EDT Telemedicine [facility] MEDICINE [address] [place] [address] Francy Melara RN 05/31/2025 2:00 PM EDT Office Visit [facility] OPTOMETRY [address] [place] [address] Shanika Israel, OD [address] [place] [address] documented as of this encounter Visit Diagnoses Not on filedocumented in this encounter Additional Health Concerns Assessment Noted Time PHQ-9 Depression Total Score: 0 07/14/20 11:16 AM EDT documented as of this encounter Care Teams Locksmith Relationship Specialty Start Date End Date Piedad Pacheco MD [address] [facility] [place] [address] PCP - General Family Medicine 10/26/20 documented as of this encounter
--- OUTSIDE RECORDS SUMMARY | 2025-02-21 14:17 | XMS_ITS | Encounter Summary ---
Author Organization [employer] Address 75 [facility] 7t [place] [address] Care Team Providers Care Engine Watchman Name Role Phone Piedad Pacheco MD Primary Care Provide r Reason for Visit * Reason Onset Date Comments Med Refill 05/25/2024 Encounter Details Date Type Department Care Team ([facility] st Contact Info) Description 05/25/2024 Telephone [facility] MEDICINE [address] [place] [address] Piedad Pacheco MD [address] [place] [address] Med Refill Social History Tobacco Use Types [...] encounter Miscellaneous Notes * Telephone Encounter - Adolfo Buck - 05/25/2024 1:11 PM EDT Images from the original note were not included. TC from pt requesting medication refill. Medications needing refill : zolpidem (Ambien) 10 MG tablet To be sent to: [facility] [address] [place] [address] documented in this encounter Plan of Treatment Upcoming Encounters Date Type Department Care Team (Late st Contact Info) Description 04/28/2025 9:00 AM EDT Telemedicine [facility] MEDICINE [address] [place] [address] Francy Melara RN 05/31/2025 2:00 PM EDT Office Visit [facility] OPTOMETRY [address] [place], [place] [phone] Shanika Israel, OD [address] [place] [address] documented as of this encounter Visit Diagnoses Not on filedocumented in this encounter Additional Health Concerns Assessment Noted Time PHQ-9 Depression Total Score: 0 07/14/20 23 11:16 AM EDT documented as of this encounter Care Teams Engine Watchman Relationship Specialty Start Date End Date Piedad Pacheco MD [address] [place] [address] PCP - General Family Medicine 10/26/20 documented as of this encounter
--- OUTSIDE RECORDS SUMMARY | 2025-02-21 14:17 | XMS_ITS | Encounter Summary ---
Author Organization [employer] Address 75 [facility] 7t [place] [address] Care Team Providers Care Kiln Furniture Caster Name Role Phone Piedad Pacheco MD Primary Care Provide r Reason for Visit * Reason Onset Date Comments Appointment 12/26/2022 Encounter Details Date Type Department Care Team ([facility] Contact Info) Description 12/26/2022 Telephone [facility] [address] [place], [place] [phone] Ruddy Vazquez DDS [address] [place] [address] Appointment Social History Tobacco Use Types Packs/Day Years Used Date Smoking Tobacco: Never Assessed Sex and Gender Information Value Date Recorded Sex Assigned at Male 08/11/2022 10:17 AM EDT Legal Sex Male 10:17 AM EDT Gender Identity Male 08/11/2022 10:17 AM EDT Sexual Orientation Straight 08/11/2022 10 :17 AM EDT documented as of this encounter Miscellaneous Notes * Telephone Encounter - Lyn Samaniego - 12/26/2022 1:51 PM EDT [facility] called in that patient contacted them because his teeth are in office and he is looking to get them delivered. Unsure what stage he is in because in Nex Gen it lists that next visit impression but Epic there is nothing listed like the patient has been seen since his last appt on 08/08/2022. He is telling them that his teeth are here so unsure if it prior teeth or what maybe happening. Does the patient have partials in office to complete treatment or is it an appt that patient needs to starton tx? PA expires 02/09/2023. documented in this encounter Plan of Treatment Upcoming Encounters Date Type Department Care Team (Late st Contact Info) Description 04/28/2025 9:00 AM EDT Telemedicine [facility] MED[facility] [address] [place] [address] Francy Melara, SLADE 05/31/2025 2:00 PM EDT Office Visit [facility] [address] [place] [address] Shanika Israel, OD [address] [place] [address] documented as of this encounter Visit Diagnoses Not on filedocumented in this encounter Care Teams Kiln Furniture Caster Relationship Specialty Start Date End Date Piedad Pacheco MD [address] [place] [address] PCP - General Family Medicine 10/26/20 documented as of this encounter
--- OUTSIDE RECORDS SUMMARY | 2025-02-21 14:17 | XMS_ITS | Clinical Summary ---
Author Organization [employer] Address [address] [facility] [address] [place] [address] Care Team Providers Care Dress Designer Name Role Phone Piedad Pacheco MD Primary Care Provide r Allergies No known active allergies Medications clotrimazole (Lotrimin) 1 % cream apply by topical route 2 times every day to the affected and surrounding areas of skin in the morning and evening 60 g 1 023 Active FREESTYLE LITE test strip USE STRIP TO CHECK GLUCOSE THREE TIMES DAILY 022 Active Blood Pressure Monitor kitIndications:E ssential hypertension Use as directed 3x/week 1 kit 023 Active tamsulosin (Flomax) 0.4 MG 24 hr capsule TAKE 1 CAPSULE BY MOUTH ONCE DAILY ONE-HALF HOUR FOLLOWING THE SAME MEAL EACH DAY 90 capsule 1 024 Active fluticasone (Flonase) 50 MCG/ACT nasal spray USE 1 SPRAY(S) IN EACH NOSTRIL TWICE DAILY 024 Active senna (Senokot) 8.6 MG tablet Take 2 tablets by mouth at bedtime. Active metFORMIN (Glucophage) 500 MG tabletIndication s:Type 2 diabetes mellitus with hyperglycemia, without long-term current use of insulin (CMS/[facility]) Take 1 tablet (500 mg) by mouth with breakfast and with evening meal. 180 tablet 2 024 Active Blood Glucose Monitoring Suppl (FreeStyle [place] Lite) w/Device kitIndications:T ype 2 diabetes mellitus with hyperglycemia, without long-term current use of insulin (CMS/HCC) Use to test blood sugar 2 times daily 1 kit 024 Active Lancets miscIndications: Type 2 diabetes mellitus with hyperglycemia, without long-term current use of insulin ([facility]) Use to test blood sugar 2 times daily 100 each 2 024 Active Alcohol Swabs 70 % padsIndications: Type 2 diabetes mellitus with hyperglycemia, without long-term current use of insulin ([facility]) Use to test blood sugar 2 times daily 100 each 2 024 Active Farxiga 10 MGIndications:Ty pe 2 diabetes mellitus with hyperglycemia, without long-term current use of insulin ([facility]) TAKE 1 TABLET BY MOUTH EVERY DAY 90 tablet 1 024 Active hydrOXYzine pamoate (Vistaril) 50 MG capsule Take 1 capsule by mouth 3 times daily. Active lidocaine (Lidoderm) 5 % patch APPLY 1 PATCH TOPICALLY ONCE DAILY TO THE MOST PAINFUL AREA. LEAVE ON FOR UP TO 12 HOURS THEN REMOVE AND DISCARD 024 Active loratadine (Claritin) 10 MG tabletIndication s:Allergic rhinitis, unspecified seasonality, unspecified trigger Take on tablet every 12 hrs for 3 days then one tablet at bed time 90 tablet 025 Active atorvastatin (Lipitor) 80 MG tabletIndication s:Ischemic stroke ([facility]) TAKE 1 TABLET BY MOUTH AT BEDTIME 90 tablet 025 Active naloxone (Narcan) 4 mg/0.1 mL nasal sprayIndications :Chronic midline low back pain without sciatica Administer 1 spray (4 mg) into affected nostril(s) if needed for opioid reversal. May repeat every 2-3 minutes if needed, alternating nostrils, until medical assistance becomes available. 2 each 3 025 2025 Active nicotine (Nicoderm CQ) 14 MG/24HR patch Place 1 patch on the skin 1 (one) time each day at the same time. 42 patch 025 Active nicotine (Nicoderm CQ) 7 MG/24HR patch Place 1 patch on the skin 1 (one) time each day at the same time. 14 patch 025 Active nicotine polacrilex (Commit) 2 MG lozenge Dissolve 1 lozenge (2 mg) in the mouth if needed for smoking cessation. 100 lozenge 025 Active tiZANidine (Zanaflex) 2 MG tablet Take 1 tablet (2 mg) by mouth every 6 (six) hours if needed for muscle spasms. 30 tablet 025 Active docusate sodium (Colace) 100 MG capsuleIndicatio ns:Constipation, unspecified constipation type Take 1 capsule (100 mg) by mouth 2 times daily. 60 capsule 11 025 Active clopidogrel (Plavix) 75 MG tabletIndication s:Ischemic stroke (CMS/HCC) TAKE 1 TABLET BY MOUTH EVERY DAY 30 tablet 025 Active famotidine (Pepcid) 20 MG tablet Take 1 tablet by mouth twice daily 180 tablet Active oxyCODONE (Roxicodone) 5 MG immediate release tabletIndication s:Lumbar radiculopathy Take 1 tablet (5 mg) by mouth every 8 (eight) hours if needed for severe pain for up to 28 days. 84 tablet 025 2024 Active zolpidem (Ambien) 10 MG tabletIndication s:Insomnia, unspecified type TAKE 1 TABLET BY MOUTH NEEDED AT BEDTIME FOR SLEEP 30 tablet 1 025 Active rOPINIRole (Requip) 2 MG tabletIndication s:Restless Leg Syndrome TAKE 1 TABLET BY MOUTH THREE TIMES DAILY 270 tablet 1 025 Active aspirin (EQ Aspirin Adult Low Dose) 81 MG EC tabletIndication s:Ischemic stroke (CMS/HCC) TAKE 1 TABLET BY MOUTH EVERY DAY 90 tablet 025 Active tadalafil (Cialis) 20 MG tablet Take 1 tablet (20 mg) by mouth if needed each day for erectile dysfunction. TAKE 1 TABLET BY MOUTH 45 MINUTES BEFORE SEXUAL ACTIVITY DIRECTED 10 tablet 025 Active famotidine (Pepcid) 20 MG tablet TAKE 1 TABLET BY MOUTH TWICE A DAY 180 tablet 1 024 2024 Discontinued EQ Aspirin Adult Low Dose 81 MG EC tabletIndication s:Ischemic stroke (CMS/HCC) Take 1 tablet by mouth once daily 90 tablet 025 2024 Discontinued(R eorder (will not trigger notification to Pharmacy)) rOPINIRole (Requip) 2 MG tabletIndication s:Restless leg syndrome TAKE 1 TABLET BY MOUTH THREE TIMES DAILY 270 tablet 025 2024 Discontinued(R eorder (will not trigger notification to Pharmacy)) tadalafil (Cialis) 20 MG tablet Take 1 tablet (20 mg) by mouth if needed each day for erectile dysfunction. TAKE 1 TABLET BY MOUTH 45 MINUTES BEFORE SEXUAL ACTIVITY DIRECTED 10 tablet 025 2024 Discontinued(R eorder (will not trigger notification to Pharmacy)) oxyCODONE (Roxicodone) 5 MG immediate release tabletIndication s:Lumbar radiculopathy Take 1 tablet (5 mg) by mouth every 8 (eight) hours if needed for severe pain for up to 28 days. 84 tablet 025 2024 Discontinued(R eorder (will not trigger notification to Pharmacy)) zolpidem (Ambien) 10 MG tabletIndication s:Insomnia, unspecified type TAKE 1 TABLET BY MOUTH NEEDED AT BEDTIME FOR SLEEP 30 tablet 025 2024 Discontinued(R eorder (will not trigger notification to Pharmacy)) Active Problems Problem Noted Date Diagnosed Date Cardiomyopathy 12/27/2024 Assessment & Plan (12/27/2024 12:30 PM EDT): Patient is currently being followed by Dr. Ricketts he has an upcoming appointment on December 29, 2024 he is currently on medications as above plus Diazxiga, currently patient's seems to be clinically compensated Cardiology did order for him on previous appointment echocardiogram and stress test I do not have results with me Allergic rhinitis 10/19/2024 Ischemic stroke 04/26/2024 Assessment & Plan (12/27/2024 12:29 PM EDT): Patient had an ischemic stroke approximately 9 months ago he is currently taking atorvastatin 80 mg plus aspirin 81 mg plus clopidogrel 75 mg medications are currently optimized. At the time of the hospitalization complete workup was done. Heart failure 04/26/2024 Colon cancer screening 12/16/2023 Chronic midline low back pain without sciatica 0 06/19/2023 Infection of vertebra 06/19/2023 Assessment & Plan (12/16/2023 3:50 PM EST): I printed ID referral and give it t patient He has being struggling with appointments I refer him to care management Assessment & Plan (06/19/2023 4:54 PM EDT): Patient completed antibiotic regimen Hospital discharge follow-up 06/19/2023 Benign prostatic hyperplasia with urinary obstru ction 06/19/2023 Assessment & Plan (06/19/2023 4:54 PM EDT): Patient will be following with urology Balanitis 06/18/2023 Dry eyes 06/18/2023 Metabolic syndrome X 06/18/2023 Severe obesity 06/18/2023 Tinea cruris 06/18/2023 Type 2 diabetes mellitus without complication Type 2 diabetes mellitus 07/11/2020 Assessment & Plan (12/27/2024 12:25 PM EDT): Diabetes is: controlled - Lab Results Component Value Date HGBA1C 6.4 (A) 10/19/2024 HGBA1C 6.2 (A) 04/26/2024 HGBA1C 6.5 (A) 12/16/2023 - Lab Results Component Value Date MICROALBUR 0.2 12/19/2020 CREATININE 1.15 08/16/2024 -Changes: None - Diabetic eye exam: Up-to-date - Diabetic foot exam: Pending - Continue lifestyle modifications - Continue current medications - Follow up: 3 months Assessment & Plan (10/19/2024 2:43 PM EST): Diabetes is: controlled - Lab Results Component Value Date HGBA1C 6.4 (A) 10/19/2024 HGBA1C 6.2 (A) 04/26/2024 HGBA1C 6.5 (A) 12/16/2023 - Lab Results Component Value Date MICROALBUR 0.2 12/19/2020 CREATININE 1.15 08/16/2024 -Changes: none - Diabetic eye exam:pending - Diabetic foot exam:pending - Continue lifestyle modifications - Continue current medications - Follow up: 3 months Assessment & Plan (04/26/2024 2:03 PM EDT): Diabetes is: controlled - Lab Results Component Value Date HGBA1C 6.2 (A) 04/26/2024 HGBA1C 6.5 (A) 12/16/2023 HGBA1C 5.8 06/19/2023 - Lab Results Component Value Date MICROALBUR 0.2 12/19/2020 -Changes: c/w medications prescribed after discharge - Diabetic eye exam:up to date - Diabetic foot exam:pending - Continue lifestyle modifications - Continue current medications - Follow up: 3 months Assessment & Plan (12/16/2023 3:51 PM EST): Diabetes is: controlled - Lab Results Component Value Date HGBA1C 5.8 06/19/2023 HGBA1C 7.2 (H) 12/19/2020 HGBA1C 8.0 (H) 07/06/2020 HGBA1C 8.0 (H) 07/06/2020 - Lab Results Component Value Date MICROALBUR 0.2 12/19/2020 -Changes: none - Diabetic eye exam:referral done - Diabetic foot exam:pending - Continue lifestyle modifications - Continue current medications - Follow up: 3 months Assessment & Plan (07/14/2023 11:45 AM EDT): Diabetes also control he is not on metformin anymore glucose at home has being good I will continue to monitor, I also advise to c/w diabetic diet Assessment & Plan (06/19/2023 4:55 PM EDT): - Lab Results Component Value Date HGBA1C 5.8 06/19/2023 HGBA1C 7.2 (H) 12/19/2020 HGBA1C 8.0 (H) 07/06/2020 HGBA1C 8.0 (H) 07/06/2020 - Lab Results Component Value Date MICROALBUR 0.2 12/19/2020 - Continue lifestyle modifications Today I discontinue his lantus I will call him in 2 weeks with glucose log Chronic obstructive lung disease 11/09/2019 Obstructive sleep apnea syndrome 11/09/2019 ALT (SGPT) level raised 08/29/2019 Cervical disc disorder 08/29/2019 Fibromyalgia 08/29/2019 Lumbar radiculopathy 05/31/2019 Assessment & Plan (10/19/2024 2:49 PM EST): Pain is currently not control, I will go up on his oxycodone to 5mg to every 8hrs instead of every 12hrs Assessment & Plan (04/26/2024 2:01 PM EDT): I will send refill for oxycodone 5mg Q 12hrs PRN I will refer patient to pain management Assessment & Plan (07/14/2023 11:44 AM EDT): Patient is waiting for appointment to specialist, he was refer to neurology but was not accepted because he needs an MRI with in this year, he does have it (report is discharge summary) I will call again for him to be seen He also has a referral to orthopedics For now he will continue oxycodone 10mg Q 6hrs PRN Restless legs 05/13/2018 Hyperlipidemia 04/12/2018 Chest pain on exertion 11/17/2017 Chronic kidney disease 11/17/2017 Essential hypertension 07/23/2017 Assessment & Plan (10/19/2024 2:43 PM EST): Stable, I advised: - low-sodium diet (goal: <2g/day) and heart healthy diet such as DASH to reduce BP and prevent ASCVD. - Home BP monitoring 1-2 x day with goal of <140/90. - Seek immediate medical attention for chest pain, palpitations, SOB, syncope, or sudden changes in mental status. - Do not change or discontinue current prescriptions without first consulting health care provider Assessment & Plan (04/26/2024 2:02 PM EDT): Maintenance: BMP: up to date Lipid Panel: up to date ASCVD Risk: high risk on max dose atorvastatin + aspirin + clopidogrel - Aerobic exercise to reduce BP. Initial goal of 30 min walk 3-5x/week. Increase as tolerated. - low-sodium diet (goal: <2g/day) and heart healthy diet such as DASH to reduce BP and prevent ASCVD. - Home BP monitoring 1-2 x day with goal of <140/90. - Seek immediate medical attention for chest pain, palpitations, SOB, syncope, or sudden changes in mental status. - Do not change or discontinue current prescriptions without first consulting health care provider Assessment & Plan (12/16/2023 3:50 PM EST): - Aerobic exercise to reduce BP. Initial goal of 30 min walk 3-5x/week. Increase as tolerated. - low-sodium diet (goal: <2g/day) and heart healthy diet such as DASH to reduce BP and prevent ASCVD. - Home BP monitoring 1-2 x day with goal of <140/90. - Seek immediate medical attention for chest pain, palpitations, SOB, syncope, or sudden changes in mental status. - Do not change or discontinue current prescriptions without first consulting health care provider Assessment & Plan (07/14/2023 11:45 AM EDT): BP is no control c/w low Na diet and current medication regimen Assessment & Plan (06/19/2023 4:53 PM EDT): Blood pressure is I th low side it was added at rehab amlodipine today I decided to discontinue it I will call in 2 weeks to check, he was instructed to log his blood pressure History of cocaine use 04/24/2017 Recurrent major depressive episodes, moderate Encounters Date Type Department Care Team Description 02/09/2025 Refill [facility] [address] [place] [phone] Piedad Pacheco MD 02/06/2025 Refill [facility] [address] [place] [address] Piedad Pacheco MD Insomnia, unspecified type; Restless leg syndrome; Ischemic stroke ([facility]) 01/31/2025 Refill [facility] [address] [place] [address] Piedad Pacheco MD Lumbar radiculopathy 01/28/2025 Refill [facility] [address] [place] [address] Piedad Pacheco MD 01/10/2025 Telephone [facility] [address] [place] [address] Piedad Pacheco MD PT1 01/04/2025 Refill [facility] [address] [place] [phone] Piedad Pacheco MD Insomnia, unspecified type 12/27/2024 11:15 AM EDT Office Visit [address] [address] Piedad Pacheco MD Type 2 diabetes mellitus without complication, without long-term current use of insulin (CMS/HCC) (Primary Dx); Ischemic stroke (CMS/HCC); Cardiomyopathy, unspecified type (CMS/HCC) 12/27/2024 Travel 12/23/2024 Refill [facility] [address] [place] [phone] Piedad Pacheco MD Lumbar radiculopathy 12/23/2024 Refill [facility] [address] [place] [phone] [facility] Ischemic stroke (CMS/HCC) 12/19/[address] [address] Piedad Pacheco MD Appointment Request 12/13/2024 10:20 AM EST Office Visit [facility] [address] [place] [phone] Ronald Zimmerman MD Lumbar radiculopathy (Primary Dx); Constipation, unspecified constipation type; Tobacco dependence 12/13/2024 Orders Only [facility] [address] [place] [phone] Ronald Zimmerman MD 12/13/2024 Telephone [facility] [address] [place] [phone] Piedad Pacheco MD Medication Question 12/13/2024 Telephone [facility] [address] [address] Ronald Zimmerman MD 12/12/2024 Patient Outreach [address] [address] Piedad Pacheco MD Care Coordination ([facility] outreach for SDOH PT-1 and food needs-referral completed /) 12/12/2024 Telephone [facility] [address] [place] [address] Piedad Pacheco MD PT1 12/12/2024 Telephone [facility] [address] [place] [address] Piedad Pacheco MD Nurse Triage 12/01/2024 2:00 PM EST Office Visit [facility] [address] [place] [address] Jhonatan, Shanika, OD Diabetes type 2, no ocular involvement (CMS/HCC) (Primary Dx); Ischemic stroke (CMS/HCC); Disorder of eyelid; Early cataracts, bilateral; Presbyopia 12/01/2024 Travel 11/30/2024 Refill [facility] [address] [place], [place] [phone] Piedad Pacheco MD Insomnia, unspecified type from Last 3 Months Immunizations Name Administration Dates Next Due Influenza injectable quadriv alent preservative free 08/21/2022,08/29/2019,07/23/2017 Pneumococcal Polysaccharide PPSV23 08/29/2019 Tdap 06/11/2017,03/11/2016,08/23/2013 Social History Tobacco Use Types Packs/Day Years Used Date Smoking Tobacco: Some Days Cigarettes Passive Smoke Exposure: Current Smokeless Tobacco: Never Tobacco Cessation:Ready to Q uit: Not Asked; Counseling Given: Not Answered Alcohol Use Standard Drinks/Week Comments Never 0 [...] Orientation Straight 08/11/2022 10 :17 AM EDT Last Filed Vital Signs Vital Sign Reading Time Taken Comments Blood Pressure 104/58 12/27/2024 11:56 AM EDT Pulse 105 12/27/2024 11:56 AM EDT Temperature 36.6 ??C (97.8 ??F) 12/27/2024 11:56 AM E DT Respiratory Rate 20 12/27/2024 11:56 AM EDT Oxygen Saturation 96% 12/27/2024 11:56 AM EDT Inhaled Oxygen Concentration - - Weight 103 kg (226 lb 3.2 oz) 12/27/2024 11:56 A M EDT Height 167.6 cm (5' 6 ) 12/27/2024 11:56 AM EDT Body Mass Index 36.51 12/27/2024 11:56 AM EDT Plan of Treatment Upcoming Encounters Date Type Department Care Team (Late st Contact Info) Description 04/28/2025 9:00 AM EDT Telemedicine [facility] [address] [place] [address] Francy Melara RN 05/31/2025 2:00 PM EDT Office Visit [facility] [address] [place] [address] Shanika Israel, OD [address] [place] [address] Health Maintenance Due Date Last Done Comments CT Colonography 1961 Colonoscopy 1961 FIT 1961 FOBT 1961 Sigmoidoscopy 1961 Diabetes: Foot Exam 1971 Zoster Vaccines (1 of 2) 2011 Pneumococcal Vaccine: 50+ Years (2 of 2 - PCV) 08/29/2020 08/29/2019 RSV Patients and Patients Aged 60 years or older (1 - Risk 60-74 years 1-dose series) 2021 Diabetes: Urine Protein Screening 12/19/2021 12/19/2020 Dental Prophylaxis 01/14/2022 07/15/2021 Dental X-Ray: Bitewings 07/03/2022 07/02/2021 Dental Oral Exam 02/07/2023 08/08/2022, 07/02/2021 COVID-19 Vaccine ( season) 2024 Influenza Vaccine (#1) 2024 , 08/29/2019, 07/23/2017 Dental X-Ray: Full Mouth 11/15/2024 11/14/2021, 06/13 Diabetes: Hemoglobin A1C 04/18/2025 025, 04/26/2024, 03/22/2024, Additional history exists Lipid Panel 08/08/2025 08/08/2024, 03/, 07/06/2020 Colorectal Cancer Screening 09/11/2025 FIT DNA/Cologuard 09/11/2025 09/11/2022 Alcohol/Substance Use Screening 10/19/2025 10/19/2024 Depression Screening 10/19/2025 10/19/2024, 10/19/19 SDOH Screening 10/19/2025 10/19/2024 Tobacco Screening 12/13/2025 12/13/2024 Eye Exam 12/15/2026 12/15/2024, 11/13, 12/01/2024, Additional history exists DTaP/Tdap/Td Vaccines (4 - Td or Tdap) 06/11/2027 06/11/2017, 03/11/2016, 08/23/2013 HIV Screening Completed 12/21/2023, 12/10, 07/06/2020 Hepatitis C Screening Completed 12/21/2023 HIB Vaccines Aged Out No longer eligi ble based on patient's age to complete this topic HPV Vaccines Aged Out No longer eligi ble based on patient's age to complete this topic Hepatitis A Vaccines Aged Out No long er eligible based on patient's age to complete this topic Hepatitis B Vaccines Aged Out No long er eligible based on patient's age to complete this topic IPV Vaccines Aged Out No longer eligi ble based on patient's age to complete this topic Meningococcal Vaccine Aged Out No frde destiny eligible based on patient's age to complete this topic RSV under 20 months Aged Out No longe r eligible based on patient's age to complete this topic Rotavirus Vaccines Aged Out No longer eligible based on patient's age to complete this topic Procedures Procedure Name Priority Date/Time Associated Diagnosis Comments AMB REFERRAL TO OPHTHALMOLOGY Routine 12/15/2024 Disorder of eyelid POCT GLYCATED HEMOGLOBIN, TOTAL Routine 10/19/2024 10:35 AM EST Type 2 diabetes mellitus with hyperglycemia, without long-term current use of insulin (CMS/[facility]) LIPID PANEL, STANDARD Routine 08/08/2024 2:44 PM EDT Type 2 diabetes mellitus with hyperglycemia, without long-term current use of insulin (CMS/HCC) HEPATITIS C ANTIBODY Routine 12/21/2023 4:14 PM EDT HIV 1/2 ANTIGEN/ANTIBODY, FOURTH GENERATION W/RFL Routine 12/21/2023 4:14 PM EDT PERIODIC ORAL EVALUATION - ESTABLISHED PATIENT Routine 08/08/2022 12:00 AM EDT PANORAMIC RADIOGRAPHIC IMAGE Routine 11/14/2021 12:00 AM EST PROPHYLAXIS - ADULT Routine 07/15/2021 1 2:00 AM EDT INTRAORAL - COMPLETE SERIES OF RADIOGRAPHIC IMAGES Routine 07/02/2021 12:00 AM EDT ALBUMIN, RANDOM URINE W/CREATININE Routine 12/19/2020 8:58 AM EST from Last 3 Months or Most Recently Relevant to Health Maintenance Results * Referral to Ophthalmology (12/15/2024) Shanika Stanleyfo OD OUTPATIENT REFERRAL ORDERABLE S Final Result * (ABNORMAL) POCT HGB A1C (10/19/2024 10:35 AM EST) Hemoglobin A1C 6.4(A) 4.0 - 6.0 % QC Media Lot # [id number] Lot# Expiration Date [id number] Blood 10/19/2024 10:3 5 AM EST Piedad Little MD POINT OF CARE TEST EN TER/EDIT ORDERABLES Final Result * (ABNORMAL) Lipid Panel, Standard (08/08/2024 2:44 PM EDT) Triglycerides 106 <150 mg/dL [facility] Comment:Desirable Triglyceri de: less than 150 mg/dLBorderline High Triglyceride 150-199 mg/dLHigh Triglyceride: 200-499 mg/dLVery High Triglyceride: greater than or equal to 5OO mg/dL Cholesterol 84 <200 mg/dL [facility] Comment:Desirable Cholestero l: less than 200 mg/dLBorderline High Cholesterol: 200-239 mg/dLHigh Cholesterol: greater than 239 mg/dL LDL Cholesterol Calculated 29 <100 mg/dL [facility] Comment:Desirable LDL: less than 100 mg/dLNear Optimal/Above Optimal LDL: 110- 129 mg/dLBorderline High LDL: 130-159 mg/dLHigh LDL: 160-189 mg/dLVery High LDL: greater than or equal to 190 mg/dL HDL Cholesterol 34(L) >40 mg/dL [facility] Comment:Desirable HDL: great er than 40 mg/dL Note: This HDL assay may give artificially low results in patients with liver disease. Blood Venous blood specimen / Unknown 08/08/2024 2:44 PM EDT 08/08/2024 2:44 PM EDT us Piedad Little MD LAB BLOOD ORDERABLES Final Result Performing Organization Address [facility] Co de Phone Number [facility] [address] [place] [address] [phone] * Hepatitis C Ab (12/21/2023 4:14 PM EDT) Hepatitis C Antibody Nonreactive Nonreactive [facility] Comment:Antibodies to HCV no t detected; does not exclude early acuteHCV infection. 12/21/2023 4:14 PM EDT 12/21/2023 4:14 PM EDT us Generic External Data Provider LAB BLOOD ORDERAB LES Final Result Performing Organization Address [facility] Co de Phone Number [facility] [address] [place] [address] [phone] * HIV-1/2 Antigen and Antibodies, Fourth Generation, with Reflexes (12/21/2023 4:14 PM EDT) HIV AB/AG Nonreactive Nonreactive [facility] Comment:HIV-1 p24 Ag and/or HIV-1/HIV-2 Ab not detected.A test result that is nonreactive does not exclude thepossibility of exposure to or infection with HIV-1 and/orHIV-2. Nonreactive results in this assay for individualswith prior exposure to HIV-1 and/or HIV-2 may be due toantigen and antibody levels that are below the limit ofdetection of this assay.[facility] HIV Ag/Ab Combo assay result andsupplemental assay results should be interpreted inconjunction with the patient's clinical presentation,history and other laboratory results. If the results areinconsistent with clinical evidence, additional testing issuggested to confirm the result. 12/21/2023 4:14 PM EDT 12/21/2023 4:14 PM EDT us Generic External Data Provider LAB BLOOD ORDERAB LES Final Result Performing Organization Address [facility]/ZIP Co de Phone Number [facility] [address] [place] [address] [phone] * ALBUMIN, RANDOM URINE W/CREATININE (12/19/2020 8:58 AM EST) Microalbumin Urine 0.2 See Note: mg/dL [facility] Comment: Reference Range: ?? Reference Range Not established Microalb/Creat Ratio 4 <30 mcg/mg creat [facility] Comment: ?? The ADA defines abnormalities in albumin excretion as follows: ?? Category ? Result (mcg/mg creatinine) ?? Normal ?<30 Microalbuminuria ? 30-299 ?? Clinical albuminuria ?? > OR = 300 ?? The ADA recommends that at least two of three specimens collected within a 3-6 month period be abnormal before considering a patient to be within a diagnostic category. Creatinine, Urine 48 20 - 320 mg/dL [facility] 12/19/2020 8:58 AM EST us Piedad Little MD LAB URINE ORDERABLES Final Result Performing Organization Address [facility] de Phone Number [facility] [address] from Last 3 Months or Most Recently Relevant to Health Maintenance Insurance [facility] STANDARD [facility] MEDICARE ADVANTAGE [facility] Care Teams Dress Designer Relationship Specialty Start Date End Date Piedad Pacheco MD [address] [place] [address] PCP - General Family Medicine 10/26/20
--- OUTSIDE RECORDS SUMMARY | 2025-02-21 14:17 | XMS_ITS | Encounter Summary ---
Author Organization [employer] Address 75 [facility] 7t [place] [address] Care Team Providers Care Hearing Healthcare Practitioner Name Role Phone Piedad Pacheco MD Primary Care Provide r Reason for Visit * Reason Onset Date Comments callback requested 09/12/2024 Encounter Details Date Type Department Care Team ([facility] Contact Info) Description 09/12/2024 Telephone [facility] 230 [place] [address] Piedad Pacheco MD 230 [place] [address] callback requested Social History Tobacco Use Types Packs/Day Years [...] * Telephone Encounter - Jessi Robison - 09/12/2024 2:06 PM EST Tc from [place] ([facility]) requesting a callback from PCP or [place] in regards pt (no further info discussed) Callback number [phone] documented in this encounter Plan of Treatment Upcoming Encounters Date Type Department Care Team (Late st Contact Info) Description 04/28/2025 9:00 AM EDT Telemedicine [facility] 230 [place] [address] Francy Melara RN 05/31/2025 2:00 PM EDT Office Visit [facility] [address] [place] [address] Shanika Israel, OD 230 [place] [address] documented as of this encounter Visit Diagnoses Not on filedocumented in this encounter Additional Health Concerns Assessment Noted Time PHQ-9 Depression Total Score: 0 07/14/20 23 11:16 AM EDT documented as of this encounter Care Teams Hearing Healthcare Practitioner Relationship Specialty Start Date End Date Piedad Pacheco MD 230 [place] [address] PCP - General Family Medicine 10/26/20 documented as of this encounter
--- OUTSIDE RECORDS SUMMARY | 2025-02-21 14:18 | XMS_ITS | Encounter Summary ---
Author Organization [employer] Address [address] [facility] [address] 7t [place] [address] Care Team Providers Care Candy Forming Machine Operator Name Role Phone Piedad Pacheco MD Primary Care Provide r Reason for Visit * Reason Comments Med Refill Encounter Details Date Type Department Care Team ([facility] st Contact Info) Description 09/01/2023 Refill [facility] 230 [place] [address] Piedad Pacheco MD 230 [place] [address] Restless leg syndrome Social History Tobacco Use [...] Info) Description 04/28/2025 9:00 AM EDT Telemedicine [facility] MED[facility]INE 230 [place] [address] Francy Melara RN 05/31/2025 2:00 PM EDT Office Visit [facility] OPTOMETRY [address] [place] [address] Jhonatan, Shanika, OD 230 [place] [address] documented as of this encounter Visit Diagnoses Diagnosis Restless leg syndrome Restless legs syndrome (RLS) documented in this encounter Additional Health Concerns Assessment Noted Time PHQ-9 Depression Total Score: 0 07/14/20 23 11:16 AM EDT documented as of this encounter Care Teams Candy Forming Machine Operator Relationship Specialty Start Date End Date Piedad Pacheco MD [address] [place] [address] PCP - General Family Medicine 10/26/20 documented as of this encounter
--- OUTSIDE RECORDS SUMMARY | 2025-02-21 14:18 | XMS_ITS | Encounter Summary ---
Author Organization [employer] Address 75 [facility] 7t [place] [address] Care Team Providers Care Gathering Machine Setter Name Role Phone Piedad Pacheco MD Primary Care Provide r Reason for Visit * Reason Onset Date Comments Med Refill 12/09/2023 Encounter Details Date Type Department Care Team ([facility] st Contact Info) Description 12/09/2023 Telephone [facility]INE 230 [place] [address] Piedad Pacheco MD 230 [place] [address] Med Refill Social History Tobacco Use Types [...] Telephone Encounter - Jen Cortez LPN - 12/09/2023 3:42 PM EST Medication pended to PCP. * Telephone Encounter - Trell Girard - 12/09/2023 3:38 PM EST TC from pt requesting medication refill. Medications needing refill : zolpidem (Ambien) 10 MG tablet To be sent to: [facility] [address] [place] [address] documented in this encounter Plan of Treatment Upcoming Encounters Date Type Department Care Team (Late st Contact Info) Description 04/28/2025 9:00 AM EDT Telemedicine [facility] 230 [place], [place] [phone] Francy Melara RN 05/31/2025 2:00 PM EDT Office Visit [facility] [address] [place], [place] [phone] Shanika Israel OD 230 [place] [address] documented as of this encounter Visit Diagnoses Not on filedocumented in this encounter Additional Health Concerns Assessment Noted Time PHQ-9 Depression Total Score: 0 07/14/20 23 11:16 AM EDT documented as of this encounter Care Teams Gathering Machine Setter Relationship Specialty Start Date End Date Piedad Pacheco MD 230 [place] [address] PCP - General Family Medicine 10/26/20 documented as of this encounter
--- OUTSIDE RECORDS SUMMARY | 2025-02-21 14:18 | XMS_ITS | Encounter Summary ---
Author Organization [employer] Address [address] [facility] [address] 7t [place] [address] Care Team Providers Care Admin Assistant Name Role Phone Piedad Pacheco MD Primary Care Provide r Reason for Visit * Reason Comments Med Refill Encounter Details Date Type Department Care Team ([facility] st Contact Info) Description 08/27/2023 Refill [facility] 230 [place] [address] Piedad Pacheco MD 230 [place] [address] Restless leg syndrome Social History Tobacco Use [...] 04/28/2025 9:00 AM EDT Telemedicine [facility] 230 [place] [address] Francy Melara RN 05/31/2025 2:00 PM EDT Office Visit [facility] OPT[facility]ET[facility] [address] [place] [address] Jhonatan, Shanika, OD [address] [place] [address] documented as of this encounter Visit Diagnoses Diagnosis Restless leg syndrome Restless legs syndrome (RLS) documented in this encounter Additional Health Concerns Assessment Noted Time PHQ-9 Depression Total Score: 0 07/14/20 23 11:16 AM EDT documented as of this encounter Care Teams Admin Assistant Relationship Specialty Start Date End Date Piedad Pacheco MD [address] [place] [address] PCP - General Family Medicine 10/26/20 documented as of this encounter
--- OUTSIDE RECORDS SUMMARY | 2025-02-21 14:18 | XMS_ITS | Encounter Summary ---
Author Organization [employer] Address 75 [facility] 7t [place] [address] Care Team Providers Care Consumer Advocate Name Role Phone Piedad Pacheco MD Primary Care Provide r Reason for Visit * Reason Onset Date Comments PT1 12/12/2024 Encounter Details Date Type Department Care Team ([facility] [address] Contact Info) Description 12/12/2024 Telephone [facility] 230 [place] [address] Piedad Pacheco MD 230 [place] [address] PT1 Social History Tobacco Use Types Packs/Day [...] encounter Miscellaneous Notes * Telephone Encounter - Marguerite Irvin - 12/12/2024 4:06 PM EST Patient calling requesting PT1 Home Address verified: Y/N: Yes Provider name or facility name: [facility] [place] Escort needed: Y/N: No Do you have a wheelchair: Y/N: Yes If yes- Manual or electric: Scooter Visits: (1 monthly) documented in this encounter Plan of Treatment Upcoming Encounters Date Type Department Care Team (Late st Contact Info) Description 04/28/2025 9:00 AM EDT Telemedicine [facility] 230 [place], [place] [phone] Francy Melara RN 05/31/2025 2:00 PM EDT Office Visit [facility] [address] [place], [place] [phone] Shanika Israel, OD 230 [place] [address] documented as of this encounter Visit Diagnoses Not on filedocumented in this encounter Additional Health Concerns Assessment Noted Time PHQ-9 Depression Total Score: 0 10/19/19 25 10:23 AM EST documented as of this encounter Care Teams Consumer Advocate Relationship Specialty Start Date End Date Piedad Pacheco MD [address] [place] [address] PCP - General Family Medicine 10/26/20 documented as of this encounter
--- OUTSIDE RECORDS SUMMARY | 2025-02-21 14:18 | XMS_ITS | Encounter Summary ---
Author Organization [employer] Address [address] [facility] [address] [place] [address] Care Team Providers Care Cementing Bulk Material Operator Name Role Phone Piedad Pacheco MD Primary Care Provide r Reason for Visit * Reason Comments Med Refill Encounter Details Date Type Department Care Team ([facility] st Contact Info) Description 12/01/2023 Refill [facility] 230 [place], [place] [phone] Name, MD Juno 230 [place] [address] Social History Tobacco Use Types Packs/Day Years [...] Info) Description 04/28/2025 9:00 AM EDT Telemedicine [facility]INE 230 [place] [address] Francy Melara RN 05/31/2025 2:00 PM EDT Office Visit [facility] OPTOMET[facility] [address] [place], [place] [phone] Shanika Israel, OD 230 [place] [address] documented as of this encounter Visit Diagnoses Not on filedocumented in this encounter Additional Health Concerns Assessment Noted Time PHQ-9 Depression Total Score: 0 07/14/20 23 11:16 AM EDT documented as of this encounter Care Teams Cementing Bulk Material Operator Relationship Specialty Start Date End Date Piedad Pacheco MD 230 [place] [address] PCP - General Family Medicine 10/26/20 documented as of this encounter
--- OUTSIDE RECORDS SUMMARY | 2025-02-21 14:18 | XMS_ITS | Encounter Summary ---
Author Organization [employer] Address 75 [facility] 7t [place] [address] Care Team Providers Care Furnace Charger Name Role Phone Piedad Pacheco MD Primary Care Provide r Reason for Visit * Reason Onset Date Comments Nurse Triage 12/02/2023 Encounter Details Date Type Department Care Team ([facility] Contact Info) Description 12/02/2023 Telephone [facility] MEDICINE 230 [place], [place] [phone] Piedad Pacheco MD 230 [place] [address] Nurse Triage Social History Tobacco Use Types Packs/Day Years [...] encounter Miscellaneous Notes * Telephone Encounter - Fany Noguera RN - 12/02/2023 11:39 AM EST Triage call. Pt is very unclear about request. Pt is needing a referral to specialist regarding hospital visit at [facility] 10/19/23 . Pt was seen there sent home and then returned to [facility] and was admitted and sent to long term in [place] for rehab. Unclear as to dates, no information is on the chart. Pt did have UTI and pulido catheter and unclear if this was resolved. Pt was told to geta referral to specialist ? as to whether this is regarding back pain or UTI. Advised Pt has an apt with PCP 12/16/23 and can come to [facility] today open till 8pm for any acute problem. Pt reports will wait to see PCP. Advised will send this information to nursing team. Pt agrees and reports that PCP knows all information regarding this situation. Pt does have new insurance [employer] ID # is [id number] Protocol Used: Information Only Call - No Triage (Adult) Protocol-Based Disposition: Discuss with PCP and Callback by Nurse Today Video visit not offered Positive Triage Question: * Requesting referral to a specialist * All higher-acuity triage questions were negative Care Advice Discussed: * Reasons To Call Back - New symptoms develop - You have more questions - You become worse * Telephone Encounter - Stefania Castle - 12/02/2023 10:36 AM EST Symptom: Back Pain - Not From Injury Outcome: Schedule an appointment to be seen within 3 days Reason: Caller denied all higher acuity questions The caller accepted this outcome documented in this encounter Plan of Treatment Upcoming Encounters Date Type Department Care Team (Late st Contact Info) Description 04/28/2025 9:00 AM EDT Telemedicine [facility] MEDICINE [address] [place] [address] Francy Melara RN 05/31/2025 2:00 PM EDT Office Visit [facility] OPTOMETRY [address] [place], [place] [phone] Shanika Israel, OD 230 [place] [address] documented as of this encounter Visit Diagnoses Not on filedocumented in this encounter Additional Health Concerns Assessment Noted Time PHQ-9 Depression Total Score: 0 07/14/20 23 11:16 AM EDT documented as of this encounter Care Teams Furnace Charger Relationship Specialty Start Date End Date Piedad Pacheco MD [address] [place], [place] [phone] PCP - General Family Medicine 10/26/20 documented as of this encounter
--- OUTSIDE RECORDS SUMMARY | 2025-02-21 14:18 | XMS_ITS | Encounter Summary ---
Author Organization [employer] Address [address] [facility] [address]t [place] [address] Care Team Providers Care Pharmaceutical Development Technician Name Role Phone Piedad Pacheco MD Primary Care Provide r Encounter Details Date Type Department Care Team ([facility] st Contact Info) Description 09/15/2023 Telephone [facility] MEDICINE 230 [place], [place] [phone] Piedad Pacheco MD 230 [place], [place] [phone] Social History Tobacco Use Types Packs/Day Years [...] Info) Description 04/28/2025 9:00 AM EDT Telemedicine [facility] MEDICINE 230 [place] [address] Francy Melara RN 05/31/2025 2:00 PM EDT Office Visit [facility] OPTOMET[facility] [address] [place], [place] [phone] Jhonatan, Shanika, OD 230 [place] [address] documented as of this encounter Visit Diagnoses Not on filedocumented in this encounter Additional Health Concerns Assessment Noted Time PHQ-9 Depression Total Score: 0 07/14/20 23 11:16 AM EDT documented as of this encounter Care Teams Pharmaceutical Development Technician Relationship Specialty Start Date End Date Piedad Pacheco MD 230 [place] [address] PCP - General Family Medicine 10/26/20 documented as of this encounter
--- OUTSIDE RECORDS SUMMARY | 2025-02-21 14:18 | XMS_ITS | Encounter Summary ---
Author Organization [employer] Address [address] [facility] [address] 7t [place] [address] Care Team Providers Care Ratchet Setter Name Role Phone Piedad Pacheco MD Primary Care Provide r Reason for Visit * Reason Comments Med Refill Encounter Details Date Type Department Care Team ([facility] st Contact Info) Description 09/11/2023 Refill [facility] MEDICINE 230 [place] [address] Piedad Pacheco MD 230 [place] [address] Restless leg syndrome Social History Tobacco Use [...] * Telephone Encounter - Kay Garsia - 09/14/2023 11:31 AM EST Tc from pt requesting status on message below. Contact pt at [phone] documented in this encounter Plan of Treatment Upcoming Encounters Date Type Department Care Team (Late st Contact Info) Description 04/28/2025 9:00 AM EDT Telemedicine [facility] MEDICINE 230 [place] [address] Francy Melara RN 05/31/2025 2:00 PM EDT Office Visit [facility] OPTOMETRY [address] [place] [address] Jhonatan, Shanika, OD 230 [place] [address] documented as of this encounter Visit Diagnoses Diagnosis Restless leg syndrome Restless legs syndrome (RLS) documented in this encounter Additional Health Concerns Assessment Noted Time PHQ-9 Depression Total Score: 0 07/14/20 23 11:16 AM EDT documented as of this encounter Care Teams Ratchet Setter Relationship Specialty Start Date End Date Piedad Pacheco MD 230 [place] [address] PCP - General Family Medicine 10/26/20 documented as of this encounter
--- OUTSIDE RECORDS SUMMARY | 2025-02-21 14:18 | XMS_ITS | Encounter Summary ---
Author Organization [employer] Address [address] [facility] [address] 7t [place] [address] Care Team Providers Care Personal Driver Name Role Phone Piedad Pacheco MD Primary Care Provide r Encounter Details Date Type Department Care Team ([facility] st Contact Info) Description 12/13/2024 Orders Only [facility] 230 [place], [place] [phone] Ronald Zimmerman MD 230 [place] [address] Social History Tobacco Use Types Packs/Day Years [...] EDT Telemedicine [facility] MEDICINE 230 [place] [address] Francy Melara RN 05/31/2025 2:00 PM EDT Office Visit [facility] OPTOMETRY [address] [place] [address] Jhonatan, Shanika, OD 230 [place] [address] documented as of this encounter Visit Diagnoses Not on filedocumented in this encounter Additional Health Concerns Assessment Noted Time PHQ-9 Depression Total Score: 0 10/19/19 25 10:23 AM EST documented as of this encounter Care Teams Personal Driver Relationship Specialty Start Date End Date Piedad Pacheco MD 230 [place] [address] PCP - General Family Medicine 10/26/20 documented as of this encounter
== END 2025-02-21 13:35 | disposition home or self-care (01) ==
PROVIDERS: PCP Internal Medicine; Visit Provider Nurse Practitioner Family
DX: M54.16 Radiculopathy, lumbar region (principal); M51.369 Other intervertebral disc degeneration, lumbar region without mention of lumbar back pain or lower extremity pain; M47.817 Spondylosis without myelopathy or radiculopathy, lumbosacral region; M54.51 Vertebrogenic low back pain; M54.50 Low back pain, unspecified; G89.29 Other chronic pain; M53.3 Sacrococcygeal disorders, not elsewhere classified
CPT/HCPCS: 99214; G2211

== ENCOUNTER → 2025-02-21 13:13 | Outpatient (BNVA) | payer MEDICARE, SELFPAY | PROVIDERS: PCP Internal Medicine; Visit Provider Nurse Practitioner Family | DX: M54.16 Radiculopathy, lumbar region (principal); M51.369 Other intervertebral disc degeneration, lumbar region without mention of lumbar back pain or lower extremity pain; M47.817 Spondylosis without myelopathy or radiculopathy, lumbosacral region; M54.51 Vertebrogenic low back pain; M54.50 Low back pain, unspecified; M53.3 Sacrococcygeal disorders, not elsewhere classified; G89.29 Other chronic pain | CPT/HCPCS: 99212 ==

== ENCOUNTER 2025-02-28 12:04 | Outpatient (REF) | payer MEDICARE, SELFPAY ==
[2025-02-28 12:58] LABS: Anion Gap 12 (12-20); Blood Urea Nitrogen 14 mg/dL (9-16); Carbon Dioxide 25 mmol/L (22-29); Chloride 105 mmol/L (96-108); Estimated Glomerular Filt Rate > 60; Glucose Random 136 mg/dL (60-115); Potassium 4.1 mmol/L (3.3-5.1); Sodium 138 mmol/L (135-145)
--- OUTSIDE RECORDS SUMMARY | 2025-02-28 13:10 | XMS_ITS | Encounter Summary ---
Author Organization [employer] Address 75 [facility] 7t [place] [address] Care Team Providers Care Bread Wrapping Machine Feeder Name Role Phone Piedad Pacheco MD Primary Care Provide r Reason for Visit * Reason Onset Date Comments PT-1 10/28/2024 Encounter Details Date Type Department Care Team ([facility] st Contact Info) Description 10/28/2024 Telephone [facility] MEDICINE 230 [place], [place] [phone] Piedad Pacheco MD 230 [place] [address] PT-1 Social History Tobacco Use Types Packs/Day [...] requesting status of PT-1 UPDATED PT-1 INFO [facility] Radiology APPROVED [address] 2x visits a month expires 11/07/25 * Telephone Encounter - Jessi Robison - 11/01/2024 2:47 PM EST Tc from pt requesting status of PT-1 as requesting a callback [phone] * Telephone Encounter - Fox Gaona - 10/28/2024 11:04 AM EST Patient calling requesting PT1 Home Address verified: Y/N: Yes Provider name or facility name: [facility] Escort needed: Y/N: No Do you have a wheelchair: Y/N: Yes If yes- Manual or electric: Electric Scooter Visits: (amount of visits) ( x monthly, weekly, daily) 3 times a month documented in this encounter Plan of Treatment Upcoming Encounters Date Type Department Care Team (Late st Contact Info) Description 04/28/2025 9:00 AM EDT Telemedicine [facility] MEDICINE 230 [place] [address] Francy Melara RN 05/31/2025 2:00 PM EDT Office Visit [facility] OPTOMETRY [address] [place] [address] Shanika Israel, OD 230 [place] [address] documented as of this encounter Visit Diagnoses Not on filedocumented in this encounter Additional Health Concerns Assessment Noted Time PHQ-9 Depression Total Score: 0 10/19/19 25 10:23 AM EST documented as of this encounter Care Teams Bread Wrapping Machine Feeder Relationship Specialty Start Date End Date Piedad Pacheco MD 230 [place] [address] PCP - General Family Medicine 10/26/20 documented as of this encounter
--- OUTSIDE RECORDS SUMMARY | 2025-02-28 13:10 | XMS_ITS | Encounter Summary ---
Author Organization [employer] Address 75 [facility] 7t [place] [address] Care Team Providers Care Fur Pointer Name Role Phone Piedad Pacheco MD Primary Care Provide r Reason for Visit * Reason Comments Med Refill Encounter Details Date Type Department Care Team (Late Contact Info) Description 06/08/2023 Refill [facility] MEDICINE 230 [place] [address] Name, MD Juno [address] [place] [address] Social History Tobacco Use Types Packs/Day Years [...] Info) Description 04/28/2025 9:00 AM EDT Telemedicine [facility] MEDICINE 230 [place] [address] Francy Melara RN 05/31/2025 2:00 PM EDT Office Visit [facility] OPTOMETRY [address] [place], [place] [phone] Shanika Israel, OD 230 [place] [address] documented as of this encounter Visit Diagnoses Not on filedocumented in this encounter Care Teams Fur Pointer Relationship Specialty Start Date End Date Piedad Pacheco MD [address] [place] [address] PCP - General Family Medicine 10/26/20 documented as of this encounter
--- OUTSIDE RECORDS SUMMARY | 2025-02-28 13:10 | XMS_ITS | Encounter Summary ---
Author Organization [employer] Address 75 [facility] 7t [place] [address] Care Team Providers Care Flute Grinder Name Role Phone Piedad Pacheco MD Primary Care Provide r Encounter Details Date Type Department Care Team ([facility] st Contact Info) Description 09/30/2024 Orders Only [facility] MEDICINE 230 [place], [place] [phone] Piedad Pacheco MD [address] [place] [address] Social History Tobacco Use Types Packs/Day Years [...] EDT Telemedicine [facility] MEDICINE [address] [place] [address] Francy Melara RN 05/31/2025 2:00 PM EDT Office Visit [facility] OPTOMETRY [address] [place], [place] [address] Jhonatan, Shanika, OD 230 [place] [address] documented as of this encounter Visit Diagnoses Not on filedocumented in this encounter Additional Health Concerns Assessment Noted Time PHQ-9 Depression Total Score: 0 07/14/20 23 11:16 AM EDT documented as of this encounter Care Teams Flute Grinder Relationship Specialty Start Date End Date Piedad Pacheco MD 230 [place] [address] PCP - General Family Medicine 10/26/20 documented as of this encounter
--- OUTSIDE RECORDS SUMMARY | 2025-02-28 13:10 | XMS_ITS | Encounter Summary ---
Author Organization [employer] Address [address] [facility] 7t [place] [address] Care Team Providers Care Motor Racer Name Role Phone Piedad Pacheco MD Primary Care Provide r Reason for Visit * Reason Onset Date Comments Med Refill 10/28/2024 Encounter Details Date Type Department Care Team ([facility] Contact Info) Description 10/28/2024 Telephone [facility] [address] [place] [address] Piedad Pacheco MD [address] [place] [address] Med Refill Social History Tobacco Use Types [...] 3:19 PM EST Medication was sent to [place] [phone] on 10/20/24. * Telephone Encounter - Marguerite Irvin - 10/28/2024 3:17 PM EST TC from pt requesting medication refill. Medications needing refill : loratadine (Claritin) 10 MG tablet To be sent to: [facility] [address] [place] [address] documented in this encounter Plan of Treatment Upcoming Encounters Date Type Department Care Team (Late st Contact Info) Description 04/28/2025 9:00 AM EDT Telemedicine [address] [phone] Francy Melara RN 05/31/2025 2:00 PM EDT Office Visit [facility] [address] [place] [address] Shanika Israel, OD [address] [place] [address] documented as of this encounter Visit Diagnoses Not on filedocumented in this encounter Additional Health Concerns Assessment Noted Time PHQ-9 Depression Total Score: 0 10/19/19 25 10:23 AM EST documented as of this encounter Care Teams Motor Racer Relationship Specialty Start Date End Date Piedad Pacheco MD [address] [place], [place] [phone] PCP - General Family Medicine 10/26/20 documented as of this encounter
--- OUTSIDE RECORDS SUMMARY | 2025-02-28 13:10 | XMS_ITS | Clinical Summary ---
Author Organization [facility] Address [address] [place] [id number] Care Team Providers Care Spray Gun Repairer Name Role Phone Unknown Primary Care Provider [phone] Allergies No known active allergies Medications oxyCODONE-aceta [...] this topic Insurance MEDICAID OUT OF STATE [facility] [place] [address] [place] [address] MEDICARE OUT OF NETWORK Care Teams Spray Gun Repairer Relationship Specialty Start Date End Date Unknown Unknow Provider Address PCP - General 05/15/17
--- OUTSIDE RECORDS SUMMARY | 2025-02-28 13:10 | XMS_ITS | Encounter Summary ---
Author Organization [employer] Address [address] [facility] 7t [place] [address] Care Team Providers Care Lead Generation Representative Name Role Phone Piedad Pacheco MD Primary Care Provide r Reason for Visit * Reason Onset Date Comments Medication Question 06/26/2023 Encounter Details Date Type Department Care Team ([facility] Contact Info) Description 06/26/2023 Telephone [facility] [address] [place], [place] [phone] Piedad Pacheco MD [address] [place] [address] Medication Question Social History Tobacco Use Types [...] - 06/26/2023 10:13 AM EDT Tc from [facility] requesting a call from a nurse to speak about medication oxyCODONE (Roxicodone) 10 MG immediate release tablet. Pharmacy would like to know the chronic pain pt is having and why script is being receive with 7 days. Please contact Pharmacy at [phone] documented in this encounter Plan of Treatment Upcoming Encounters Date Type Department Care Team (Late st Contact Info) Description 04/28/2025 9:00 AM EDT Telemedicine [facility] [address] [place] [address] Francy Melara RN 05/31/2025 2:00 PM EDT Office Visit [facility] [address] [place], [place] [phone] Shanika Israel, OD [address] [place] [address] documented as of this encounter Visit Diagnoses Not on filedocumented in this encounter Additional Health Concerns Assessment Noted Time PHQ-9 Depression Total Score: 0 06/19/20 23 1:27 PM EDT documented as of this encounter Care Teams Lead Generation Representative Relationship Specialty Start Date End Date Piedad Pacheco MD [address] [place] [address] PCP - General Family Medicine 10/26/20 documented as of this encounter
--- OUTSIDE RECORDS SUMMARY | 2025-02-28 13:10 | XMS_ITS | Encounter Summary ---
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 Name Role Phone Piedad Pacheco MD Primary Care Provide r Encounter Details Date Type Department Care Team ([facility] st Contact Info) Description 11/22/2024 Telephone [facility] [address] [place], [place] [phone] Piedad Pacheco MD [address] [place], [place] [phone] Social History Tobacco Use Types Packs/Day Years [...] Info) Description 04/28/2025 9:00 AM EDT Telemedicine [facility] [address] [place] [address] Francy Melara RN 05/31/2025 2:00 PM EDT Office Visit [facility] [address] [place] [address] Jhonatan, Shanika, OD [address] [place] [address] documented as of this encounter Visit Diagnoses Not on filedocumented in this encounter Additional Health Concerns Assessment Noted Time PHQ-9 Depression Total Score: 0 10/19/19 25 10:23 AM EST documented as of this encounter Care Teams Experimental Flight Test Mechanic Relationship Specialty Start Date End Date Piedad Pacheco MD [address] [place] [address] PCP - General Family Medicine 10/26/20 documented as of this encounter
--- OUTSIDE RECORDS SUMMARY | 2025-02-28 13:10 | XMS_ITS | Encounter Summary ---
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 Name Role Phone Piedad Pacheco MD Primary Care Provide r Encounter Details Date Type Department Care Team ([facility] st Contact Info) Description 10/28/2024 Telephone [facility] [address] [place], [place] [phone] Piedad Pacheco MD [address] [place], [place] [phone] Social History Tobacco Use Types Packs/Day Years [...] Info) Description 04/28/2025 9:00 AM EDT Telemedicine [facility] [address] [place] [address] Francy Melara RN 05/31/2025 2:00 PM EDT Office Visit [facility] [address] [place] [address] Jhonatan, Shanika, OD [address] [place] [address] documented as of this encounter Visit Diagnoses Not on filedocumented in this encounter Additional Health Concerns Assessment Noted Time PHQ-9 Depression Total Score: 0 10/19/19 25 10:23 AM EST documented as of this encounter Care Teams Sausage Smoker Relationship Specialty Start Date End Date Piedad Pacheco MD [address] [place] [address] PCP - General Family Medicine 10/26/20 documented as of this encounter
--- OUTSIDE RECORDS SUMMARY | 2025-02-28 13:11 | XMS_ITS ---
Author Name [facility] Organization Unknown Results Test Name/Text Value Interpretation Date Range Source GLUCOSE BLDC GLUCOMTR MCNC 111mg/dL Normal [id number] 70 - 199 [facility] FERRITIN SERPL [facility] 166ng/mL Normal [id number] 20 - 250 [facility] GLUCOSE BLDC GLUCOMTR MCNC 130mg/dL Normal [id number] 70 - 199 [facility] GLUCOSE BLDC GLUCOMTR MCNC 143mg/dL Normal [id number] 70 - 199 [facility] GLUCOSE BLDC GLUCOMTR MCNC 125mg/dL Normal [id number] 70 - 199 [facility] GLUCOSE BLDC GLUCOMTR MCNC 126mg/dL Normal [id number] 70 - 199 [facility] GLUCOSE BLDC GLUCOMTR MCNC 130mg/dL Normal [id number] 70 - 199 [facility] GLUCOSE BLDC GLUCOMTR MCNC 135mg/dL Normal [id number] 70 - 199 [facility] AMMONIA PLAS SCNC 28mcmol/L Normal [id number] 15 - 45 [facility] SODIUM SERPL SCNC 134mmol/L Below low normal [id number] 13 5 - 145 [facility] GLUCOSE SERPL MCNC 130mg/dL Normal [id number] 70 - 199 [facility] HCO3 SER SCNC 25mmol/L Normal [id number] 24 - 32 CTT [facility] ANION GAP SERPL SCNC 8mmol/L Normal [id number] 5 - 14 [facility] CHLORIDE SERPL SCNC 101mmol/L Normal [id number] 98 - 107 [facility] POTASSIUM SERPL SCNC 4.1mmol/L Normal [id number] 3.5 - 5.1 [facility] CREAT SERPL MCNC 1.1mg/dL Normal [id number] 0.7 - 1.3 [facility] Glomerular filtration rate/1.73 sq M. predicted 76 Normal [id number] 60 - [facility] CALCIUM SERPL MCNC 8.6mg/dL Normal [id number] 8.4 - 10 .2 [facility] BUN SERPL [facility] 16mg/dL Normal [id number] 9 - 20 [facility] RDW RBC AUTO RTO 12.8% Normal [id number] 12.1 - 17. 7 [facility] MCHC RBC AUTO MCNC 34.8g/dL Normal [id number] 32 - 36 [facility] MCV RBC AUTO 89.9fL Normal [id number] 78 - 100 [facility] WBC NO. BLD AUTO 11.2K/uL Above high normal [id number] 4 - 10.5 [facility] HCT VFR BLD AUTO 45.2% Normal [id number] 40 - 54 [facility] HGB BLD MCNC 15.7g/dL Normal [id number] 13.5 - 18 [facility] PMV BLD AUTO 8.5fL Normal [id number] 7.4 - 11.4 CTT [facility] PLATELET NO. BLD AUTO 175K/uL Normal [id number] 150 - 450 [facility] RBC NO. BLD AUTO 5.03M/uL Normal [id number] 4.7 - 6 [facility] MCH RBC QN AUTO 31.3pg Normal [id number] 25 - 33 C [facility] PH BLDV 7.41 Normal [id number] 7.35 - 7.45 CT[facility] HARDIK SAO2% BLDV 100% Normal [id number] [facility] RAN PO2 BLDV 133mmHg Normal [id number] [facility] HCO3 BLDV SCNC 27.5mmol/L Normal [id number] C [facility] PCO2 BLDV 45mmHg Normal [id number] [facility] AN O2/INSPIRED GAS SETTING VFR VENT FIO2 not recorded Normal [id number] [facility] BASE EXCESS BLDV SCNC 3mmol/L Normal [id number] [facility] BLOOD GAS SITE VENOUS Normal [id number] CT [facility] GLUCOSE BLDC GLUCOMTR MCNC 146mg/dL Normal [id number] 70 - 199 [facility] GLUCOSE BLDC GLUCOMTR MCNC 158mg/dL Normal [id number] 70 - 199 [facility] GLUCOSE BLDC GLUCOMTR MCNC 123mg/dL Normal [id number] 70 - 199 [facility] GLUCOSE BLDC GLUCOMTR MCNC 197mg/dL Normal [id number] 70 - 199 [facility] GLUCOSE BLDC GLUCOMTR MCNC 138mg/dL Normal [id number] 70 - 199 [facility] GLUCOSE BLDC GLUCOMTR MCNC 124mg/dL Normal [id number] 70 - 199 [facility] PMV BLD AUTO 8.6fL Normal [id number] 7.4 - 11.4 CTT HSFRAN MCHC RBC AUTO MCNC 34.8g/dL Normal [id number] 32 - 36 [facility] MCV RBC AUTO 90.8fL Normal [id number] 78 - 100 [facility] RDW RBC AUTO RTO 13.1% Normal [id number] 12.1 - 17. 7 [facility] HGB BLD MCNC 16g/dL Normal [id number] 13.5 - 18 [facility] WBC NO. BLD AUTO 7.8K/uL Normal [id number] 4 - 10.5 [facility] MCH RBC QN AUTO 31.6pg Normal [id number] 25 - 33 C [facility] RBC NO. BLD AUTO 5.07M/uL Normal [id number] 4.7 - 6 [facility] HCT VFR BLD AUTO 46% Normal [id number] 40 - 54 [facility] PLATELET NO. BLD AUTO 165K/uL Normal [id number] 150 - 450 [facility] POTASSIUM SERPL SCNC 3.9mmol/L Normal [id number] 3.5 - 5.1 [facility] SODIUM SERPL SCNC 138mmol/L Normal [id number] 135 - 145 [facility] GLUCOSE SERPL MCNC 127mg/dL Normal [id number] 70 - 199 [facility] CREAT SERPL MCNC 1.1mg/dL Normal [id number] 0.7 - 1.3 [facility] CALCIUM SERPL MCNC 9.2mg/dL Normal [id number] 8.4 - 10 .2 [facility] HCO3 SER SCNC 27mmol/L Normal [id number] 24 - 32 CTT [facility] BUN SERPL MCNC 14mg/dL Normal [id number] 9 - 20 [facility] CHLORIDE SERPL SCNC 105mmol/L Normal [id number] 98 - 107 [facility] Glomerular filtration rate/1.73 sq M. predicted 76 Normal [id number] 60 - [facility] ANION GAP SERPL SCNC 6mmol/L Normal [id number] 5 - 14 [facility] MAGNESIUM SERPL MCNC 2.2mg/dL Normal [id number] 1.7 - 2.8 [facility] GLUCOSE BLDC GLUCOMTR MCNC 146mg/dL Normal [id number] 70 - 199 [facility] GLUCOSE BLDC GLUCOMTR MCNC 143mg/dL Normal [id number] 70 - 199 [facility] GLUCOSE BLDC GLUCOMTR MCNC 123mg/dL Normal [id number] 70 - 199 [facility] GLUCOSE BLDC GLUCOMTR MCNC 121mg/dL Normal [id number] 70 - 199 [facility] CREAT UR MCNC 63mg/dL Normal [id number] CTT [facility] OSMOLALITY UR 424mOsm/kg Normal [id number] 50 - 1200 [facility] SODIUM UR SCNC 101mmol/L Normal [id number] CT [facility] GLUCOSE BLDC GLUCOMTR MCNC 118mg/dL Normal [id number] 70 - 199 [facility] GLUCOSE BLDC GLUCOMTR MCNC 124mg/dL Normal [id number] 70 - 199 [facility] Troponin I SerPl HS-mCnc 9ng/L Normal [id number] 0 - 20 [facility] Hgb A1c MFr Bld HPLC 6.4% Above high normal [id number] - 5.7 [facility] NEUTROPHILS NO. BLD AUTO 3.4K/uL Normal [id number] 1.8 - 7.8 [facility] EOSINOPHIL NO. BLD AUTO 0.2K/uL Normal [id number] 0 - 0.5 [facility] WBC NO. BLD AUTO 7.4K/uL Normal [id number] 4 - 10.5 [facility] RDW RBC AUTO RTO 12.8% Normal [id number] 12.1 - 17. 7 [facility] PMV BLD AUTO 8.2fL Normal [id number] 7.4 - 11.4 CTT HS[facility]AN HCT VFR BLD AUTO 42% Normal [id number] 40 - 54 [facility] LYMPHOCYTES NO. BLD AUTO 3.3K/uL Above high normal [id number] 1 - 3.2 [facility] MONOCYTES NFR BLD AUTO 5.5% Normal [id number] 2 - 12 [facility] MCH RBC QN AUTO 32.1pg Normal [id number] 25 - 33 C [facility] LYMPHOCYTES NFR BLD AUTO 45.2% Normal [id number] 20 - 48 [facility] MCHC RBC AUTO MCNC 34.7g/dL Normal [id number] 32 - 36 [facility] EOSINOPHIL NFR BLD AUTO 2.5% Normal [id number] 0 - 6 [facility] BASOPHILS IN BLOOD BY AUTOMATED COUNT 0.1K/uL Normal [id number] 0 - 0.2 [facility] DIFFERENTIAL TYPE AUTOMATED Normal [id number] [facility] NEUTROPHILS NFR BLD AUTO 46.1% Normal [id number] 44 - 74 [facility] MCV RBC AUTO 92.3fL Normal [id number] 78 - 100 [facility] RBC NO. BLD AUTO 4.55M/uL Below low normal [id number] 4.7 - 6 [facility] BASOPHILS NFR BLD AUTO 0.7% Normal [id number] 0 - 2 [facility] HGB BLD MCNC 14.6g/dL Normal [id number] 13.5 - 18 [facility] MONOCYTES NO. BLD AUTO 0.4K/uL Normal [id number] 0 - 0.8 [facility] PLATELET NO. BLD AUTO 155K/uL Normal [id number] 150 - 450 [facility] HCO3 SER SCNC 23mmol/L Below low normal [id number] 24 - 3 2 [facility] POTASSIUM SERPL SCNC 4.2mmol/L Normal [id number] 3.5 - 5.1 [facility] ANION GAP SERPL SCNC 6mmol/L Normal [id number] 5 - 14 [facility] CREAT SERPL MCNC 1.1mg/dL Normal [id number] 0.7 - 1.3 [facility] CALCIUM SERPL MCNC 9mg/dL Normal [id number] 8.4 - 10 .2 [facility] BUN SERPL MCNC 12mg/dL Normal [id number] 9 - 20 CT [facility] SODIUM SERPL SCNC 132mmol/L Below low normal [id number] 13 5 - 145 [facility] Glomerular filtration rate/1.73 sq M. predicted 76 Normal [id number] 60 - [facility] GLUCOSE SERPL MCNC 111mg/dL Normal [id number] 70 - 199 [facility] CHLORIDE SERPL SCNC 103mmol/L Normal [id number] 98 - 107 [facility] Troponin I SerPl HS-mCnc 10ng/L Normal [id number] 0 - 20 [facility] INR PPP 0.9 Normal [id number] 0.8 - 1.1 [facility] AN PT TIME PPP 11.2sec Normal [id number] 10.5 - 13.3 CTT [facility] OSMOLALITY SERPL 292mOsm/kg Normal [id number] 275 - 295 [facility] HDLC SERPL-MCNC 30mg/dL Below low normal [id number] 32 - 70 [facility] TRIGL SERPL-MCNC 288mg/dL Above high normal [id number] - 150 [facility] CHOLEST SERPL-MCNC 135mg/dL Normal [id number] 0 - 200 [facility] LDLc SerPl Calc-mCnc 47mg/dL Below low normal [id number] 50 - 130 [facility] GLUCOSE BLDC GLUCOMTR MCNC 101mg/dL Normal [id number] 70 - 199 [facility] History of Medication Use Medication Directions Dispensed Refills Start Date End Date Stat iopamidol (ISOVUE-370) 76 % injection 85 mL 85 mL, Intravenous, IMG once as needed, contrast, Starting on Thu03/24/24 at 0602, For 1 dose, Radiology ContrastLot #: [id number] Date: 10/24/2026 03/24/2024 4 completed LORazepam (ATIVAN) 2 MG/ML injection 0.5 mg 0.5 mg, Intravenous, Once, On Thu03/24/24 at 0545, For 1 doseGive prior to CTA 03/24/2024 4 completed ondansetron (ZOFRAN) injection 4 mg 4 mg, Intravenous, Once, On Thu03/24/24 at 0430, For 1 doseIV push over 2 to 5 minutes. 03/24/2024 4 completed acetaminophen (TYLENOL) tablet 650 mg 650 mg, Oral, Every 6 hours PRN, mild pain (1-3), Starting on Thu03/25/24 at 1146 03/23/2024 4 active lisinopril tablet 5 mg 5 mg, Oral, Every Night at Bedtime, First dose on Thu03/24/24 at 2200 03/23/2024 4 active hydrOXYzine (ATARAX) tablet 10 mg 10 mg, Oral, Once, On Thu03/22/24 at 2130, For 1 dose 03/23/2024 4 completed insulin regular 100 UNIT/ML injection 2-4 Units 2-4 Units, Subcutaneous, Every Night at Bedtime, First dose on Thu03/22/24 at 2200MEDIUM CORRECTIONAL DOSE?Usual starting dose or??insulin TDD 43-84 units?Blood Glucose ?Dose in Units??--- 03/23/2024 active mupirocin (BACTROBAN) 2 % ointment 1 application. 1 application., Topical, 2 times daily, First dose on Thu03/22/24 at 0900, For 5 daysApply 0.5 grams to each nostril twice daily for 5 days.??FOR ICU ADMINISTRATION ONLY 03/22/2024 4 active rOPINIRole (REQUIP) tablet 2 mg 2 mg, Oral, 3 times daily, First dose on Thu03/24/24 at 1600 03/22/2024 4 active iopamidol (ISOVUE-370) 76 % injection 40 mL 40 mL, Intravenous, IMG once as needed, contrast, Starting on Thu03/22/24 at 0036, For 1 dose, Radiology ContrastLot #: [id number] Date: 10/22/2026 03/22/2024 4 completed iopamidol (ISOVUE-370) 76 % injection 60 mL 60 mL, Intravenous, IMG once as needed, contrast, Starting on Thu03/22/24 at 0026, For 1 dose, Radiology ContrastLot #: [id number] Date: 10/22/2026 03/22/2024 4 completed atorvastatin (LIPITOR) tablet 80 mg Take 1 tablet (80 mg total) by mouth every evening. 03/22/2024 active insulin Lispro (HumaLOG) injection 1-6 Units 1-6 Units, Subcutaneous, 3 times daily before meals, First dose on Thu03/22/24 at 0830LOW CORRECTIONAL DOSE?(Elderly or insulin sensitive patient or ??insulin TDD is less than 43 units )?B lood Glu 03/22/2024 active ipratropium-albuter ol (DUO-NEB) nebulizer solution 3 mL 3 mL, Nebulization, Every 4 hours PRN, wheezing, shortness of breath, Starting on Thu03/22/24 at 0204 03/22/2024 active tamsulosin (FLOMAX) 24 hr capsule 0.4 mg 0.4 mg, Oral, Daily, First dose on Thu03/22/24 at 0900 03/22/2024 active zolpidem (AMBIEN) 5 MG tablet Take 2 tablets (10 mg total) by mouth every night at bedtime as needed for sleep. 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 2024-03-22 ProblemAct [facility] Cryptogenic stroke (HCC) active EncounterDiagnosisAct [facility] Encounters Encounter Type Encounter Reason Primary Diagnosis Location Date Ambulatory Cerebral infarction due to unspecified occlusion or stenosis of unspecified cerebral artery Cerebral infarction due to unspecified occlusion or stenosis of unspecified cerebral artery [facility] [place] Inpatient Cerebral infarction due to unspecified occlusion or stenosis of unspecified cerebral artery Cerebral infarction due to unspecified occlusion or stenosis of unspecified cerebral artery [facility] [place] 03/22/2024 Care Team Organization Name Specialty Phone Email Start Date End Da te [facility] GINA GARCIA Primary Care 03/22/2024
--- OUTSIDE RECORDS SUMMARY | 2025-02-28 13:11 | XMS_ITS | Clinical Summary ---
Author Organization [email or web address] Address [address] [facility] 7t [place] [address] Care Team Providers Care Route Salesman And Driver Name Role Phone Piedad Pacheco MD [...] hyperglycemia, without long-term current use of insulin (CMS/[facility]) Take 1 tablet (500 mg) by mouth with breakfast and with evening meal. 180 tablet 2 024 Active Blood Glucose Monitoring Suppl (FreeStyle [place] Lite) w/Device kitIndications:T ype 2 diabetes mellitus with hyperglycemia, without long-term current use of insulin (CMS/HCC) Use to test blood sugar 2 times daily 1 kit 024 Active Lancets miscIndications: Type 2 diabetes mellitus with hyperglycemia, without long-term current use of insulin ([facility]) Use to test blood sugar 2 times daily 100 each 2 024 Active Alcohol Swabs 70 % padsIndications: Type 2 diabetes mellitus with hyperglycemia, without long-term current use of insulin ([facility]) Use to test blood sugar 2 times daily 100 each 2 024 Active hydrOXYzine pamoate (Vistaril) 50 MG capsule Take 1 capsule by mouth 3 times daily. Active lidocaine (Lidoderm) 5 % patch APPLY 1 PATCH TOPICALLY ONCE DAILY TO THE MOST PAINFUL AREA. LEAVE ON FOR UP TO 12 HOURS THEN REMOVE AND DISCARD Active loratadine (Claritin) 10 MG tabletIndication s:Allergic rhinitis, unspecified seasonality, unspecified trigger Take on tablet every 12 hrs for 3 days then one tablet at bed time 90 tablet Active naloxone (Narcan) 4 mg/0.1 mL nasal [...] day at the same time. 42 patch Active nicotine (Nicoderm CQ) 7 MG/24HR patch Place 1 patch on the skin 1 (one) time each day at the same time. 14 patch Active nicotine polacrilex (Commit) 2 MG lozenge Dissolve 1 lozenge (2 mg) in the mouth if needed for smoking cessation. 100 lozenge Active tiZANidine (Zanaflex) 2 MG tablet Take 1 tablet (2 mg) by mouth every 6 (six) hours if needed for muscle spasms. 30 tablet Active docusate sodium (Colace) 100 MG capsuleIndicatio ns:Constipation, unspecified constipation type Take 1 capsule (100 mg) by mouth 2 times daily. 60 capsule 11 025 Active clopidogrel (Plavix) 75 MG tabletIndication s:Ischemic stroke (CMS/HCC) TAKE 1 TABLET BY MOUTH EVERY DAY 30 tablet 025 Active famotidine (Pepcid) 20 MG tablet Take 1 tablet by mouth twice daily 180 tablet 025 Active zolpidem (Ambien) 10 MG tabletIndication s:Insomnia, [...] TABLET BY MOUTH EVERY DAY 90 tablet Active tadalafil (Cialis) 20 MG tablet Take 1 tablet (20 mg) by mouth if needed each day for erectile dysfunction. TAKE 1 TABLET BY MOUTH 45 MINUTES BEFORE SEXUAL ACTIVITY DIRECTED 10 tablet 025 Active Farxiga 10 MGIndications:Ty pe 2 diabetes mellitus with hyperglycemia, without long-term current use of insulin (CMS/HCC) TAKE 1 TABLET BY MOUTH EVERY DAY 90 tablet 1 025 Active atorvastatin (Lipitor) 80 MG tabletIndication s:Ischemic stroke (CMS/HCC) Take 1 tablet (80 mg) by mouth at bedtime. 90 tablet 025 Active oxyCODONE (Roxicodone) 5 MG immediate release tabletIndication s:Lumbar radiculopathy Take 1 tablet (5 mg) by mouth every 8 (eight) hours if needed for severe pain for up to 28 days. 84 tablet 025 2024 Active Farxiga 10 MGIndications:Ty pe 2 diabetes mellitus with hyperglycemia, without long-term current use of insulin (CMS/HCC) TAKE 1 TABLET BY MOUTH EVERY DAY 90 tablet 1 024 2024 Discontinued famotidine (Pepcid) 20 MG tablet TAKE 1 TABLET BY MOUTH TWICE A DAY 180 tablet 1 024 2024 Discontinued EQ Aspirin Adult Low Dose 81 MG EC tabletIndication s:Ischemic stroke (CMS/HCC) Take 1 tablet by mouth once daily 90 tablet 025 2024 Discontinued(R eorder (will not trigger notification to Pharmacy)) atorvastatin (Lipitor) 80 MG tabletIndication s:Ischemic stroke (CMS/HCC) TAKE 1 TABLET BY MOUTH AT BEDTIME 90 tablet 025 2024 Discontinued(R eorder (will [...] is currently on medications as above plus Chloe, currently patient's seems to be clinically compensated [...] Encounters Date Type Department Care Team Description 02/28/2025 Orders Only GENERIC EXTERNAL DATA DEPARTMENT Provider, Generic External Data 02/27/[address] [facility] [address] [place] [address] iPedad Pacheco MD Lumbar radiculopathy 02/23/[address] [facility] [address] [place] [address] Piedad Pacheco MD Nurse Triage 02/21/[address] [facility] [address] [place] [address] Piedad Pacheco MD Type 2 diabetes mellitus with hyperglycemia, without long-term current use of insulin ([facility]); Ischemic stroke ([facility]) 02/21/[address] [facility] [address] [facility] [place] [address] Leilani Ricketts MD Ischemic stroke ([facility]) 02/09/[address] [facility] [address] [place] [address] Piedad Pacheco MD 02/06/[address] [facility] [address] [place] [address] Piedad Pacheco MD Insomnia, unspecified type; Restless leg syndrome; Ischemic stroke ([facility]) 01/31/[address] [facility] [address] [place] [address] Piedad Pacheco MD Lumbar radiculopathy 01/28/[address] [facility] [address] [place] [address] Piedad Pacheco MD 01/10/[address] [facility] [address] [place] [address] Piedad Pacheco MD PT1 01/04/[address] [facility] [address] [place] [address] Piedad Pacheco MD Insomnia, unspecified type 12/27/2024 11:15 AM EDT Office Visit [facility] [address] [place] [address] Piedad Pacheco MD Type 2 diabetes mellitus without complication, without long-term current use of insulin (CMS/HCC) (Primary Dx); Ischemic stroke (CMS/HCC); Cardiomyopathy, unspecified type (CMS/HCC) 12/27/2024 Travel 12/23/[address] [facility] [address] [place] [phone] Piedad Pacheco MD Lumbar radiculopathy 12/23/[address] [facility] [address] [place] [phone] [facility] Ischemic stroke (CMS/HCC) 12/19/[address] [address] Piedad Pacheco MD Appointment Request 12/13/2024 10:20 AM EST Office Visit [facility] [address] [place] [phone] Ronald Zimmerman MD Lumbar radiculopathy (Primary Dx); Constipation, unspecified constipation type; Tobacco dependence 12/13/[address] [facility] [address] [place] [phone] Ronald Zimmerman MD 12/13/[address] [address] Piedad Pacheco MD Medication Question 12/13/[address] [facility] [address] [place] [phone] Ronald Zimmerman MD 12/12/2024 Patient Outreach [address] [phone] Piedad Pacheco MD Care Coordination ([facility] outreach for SDOH PT-1 and food needs-referral completed /) 12/12/[address] [address] Piedad Pacheco MD PT1 12/12/[address] [phone] Piedad Pacheco MD Nurse Triage 12/01/2024 2:00 PM EST Office Visit [facility] [address] [place] [address] Shanika Israel, OD Diabetes type 2, no ocular involvement (CMS/HCC) (Primary Dx); Ischemic stroke (CMS/HCC); Disorder of eyelid; Early cataracts, bilateral; Presbyopia 12/01/2024 Travel from Last 3 Months Immunizations Immunization Administration Dates Next Due Influenza injectable quadriv [...] your housing situation today? I have liv tacos 10/19/[address] you li [...] Info) Description 04/28/2025 9:[address] [facility] [address] [place] [address] Francy Melara, SLADE 05/31/2025 2:00 PM EDT Office Visit [facility] [address] [place] [address] Shanika Israel, OD [address] [place] [address] Health Maintenance Due Date Last Done Comments CT Colonography 1961 Colonoscopy 1961 FIT 1961 FOBT 1961 Sigmoidoscopy 1961 Disability Screening 1961 Diabetes: Foot Exam 1971 Zoster Vaccines [...] Additional history exists Lipid Panel 08/08/2025 08/08/2024, 12/10, 07/06/2020 Colorectal Cancer Screening 09/11/2025 FIT DNA/Cologuard [...] patient's age to complete this topic Meningococcal B Vaccine Aged Out No l onger eligible based on patient's age to complete this topic Meningococcal Vaccine Aged Out No fred destiny eligible based on patient's age to complete this topic RSV under 20 months Aged Out No longe r eligible based on patient's age to complete this topic Rotavirus Vaccines Aged Out No longer eligible based on patient's age to complete this topic Procedures Procedure Name Priority Date/Time Associated Diagnosis Comments BASIC METABOLIC PANEL Routine 02/28/2025 12:17 PM EDT AMB REFERRAL TO OPHTHALMOLOGY Routine 12/15/2024 Disorder of eyelid POCT GLYCATED HEMOGLOBIN, TOTAL Routine 10/19/2024 10:35 AM EST Type 2 diabetes mellitus with hyperglycemia, without long-term current use of insulin (CMS/HCC) LIPID PANEL, STANDARD Routine 08/08/2024 2:44 PM [...] Recently Relevant to Health Maintenance Results * (ABNORMAL) Basic Metabolic Panel (02/28/2025 12:17 PM EDT) Sodium 138 135 - 145 mmol/L [facility] Potassium 4.1 3.3 - 5.1 mmol/L [facility] Chloride 105 96 - 108 mmol/L [facility] Carbon Dioxide 25 22 - 29 mmol/L [facility] Anion Gap 12 12 - 20 [facility] Urea Nitrogen (BUN) 14 9 - 16 mg/dL [facility] Creatinine, Serum 0.95 0.5 - 1.4 mg/dL [facility] Estimated Glomerular Filt Rate >60 [facility] Comment:Chronic Kidney Disea se: Estimated GFR < 60 mL/min/[id number] Kidney Disease: Estimated GFR < 15 mL/min/1.73m2 Glucose 136(H) 60 - 115 mg/dL [facility] Calcium 9.0 8.4 - 10.2 mg/dL [facility] 02/28/2025 12:1 7 PM EDT 02/28/2025 12:23 PM EDT us Generic External Data Provider LAB BLOOD ORDERAB LES Final Result [facility] [address] [place] [phone] * Referral to Ophthalmology (12/15/2024) us Shanika Israel OD OUTPATIENT REFERRAL ORDERABLE S Final Result * (ABNORMAL) POCT HGB A1C (10/19/2024 10:35 AM EST) Hemoglobin A1C 6.4(A) 4.0 - 6.0 % QC Media Lot # [id number] Lot# Expiration Date [id number] Blood 10/19/2024 10:3 5 AM EST Piedad Little MD POINT OF CARE TEST EN TER/EDIT ORDERABLES Final Result * (ABNORMAL) Lipid Panel, Standard (08/08/2024 2:44 PM EDT) Triglycerides 106 <150 mg/dL [facility] Comment:Desirable Triglyceri de: less than 150 mg/dLBorderline High Triglyceride 150-199 mg/dLHigh Triglyceride: 200-499 mg/dLVery High Triglyceride: greater than or equal to 5OO mg/dL Cholesterol 84 <200 mg/dL [facility] Comment:Desirable Cholestero l: less than 200 mg/dLBorderline High Cholesterol: 200-239 mg/dLHigh Cholesterol: greater than 239 mg/dL LDL Cholesterol Calculated 29 <100 mg/dL [facility] Comment:Desirable LDL: less than 100 mg/dLNear Optimal/Above Optimal LDL: 110- 129 mg/dLBorderline High LDL: 130-159 mg/dLHigh LDL: 160-189 mg/dLVery High LDL: greater than or equal to 190 mg/dL HDL Cholesterol 34(L) >40 mg/dL [facility] Comment:Desirable HDL: great er than 40 mg/dL Note: This HDL assay may give artificially low results in patients with liver disease. Blood Venous blood specimen / Unknown 08/08/2024 2:44 PM EDT 08/08/2024 2:44 PM EDT us Piedad Little MD LAB BLOOD ORDERABLES Final Result Performing Organization Address [facility] Co de Phone Number [facility] [address] [place] [phone] * Hepatitis C Ab (12/21/2023 4:14 PM EDT) Hepatitis C Antibody Nonreactive Nonreactive [facility] Comment:Antibodies to HCV no t detected; does not exclude early acuteHCV infection. 12/21/2023 4:14 PM EDT 12/21/2023 4:14 PM EDT us Generic External Data Provider LAB BLOOD ORDERAB LES Final Result Performing Organization Address City/[facility]/ZIP Co de Phone Number [facility] [address] [place] [address] [phone] * HIV-1/2 Antigen and Antibodies, Fourth Generation, with Reflexes (12/21/2023 4:14 PM EDT) [facility] HIV AB/AG Nonreactive Nonreactive [facility] Comment:HIV-1 p24 Ag and/or HIV-1/HIV-2 Ab not detected.A test result that is nonreactive does not exclude thepossibility of exposure to or infection with HIV-1 and/orHIV-2. Nonreactive results in this assay for individualswith prior exposure to HIV-1 and/or HIV-2 may be due toantigen and antibody levels that are below the limit ofdetection of this assay.The [employer] HIV Ag/Ab Combo assay result andsupplemental assay results should be interpreted inconjunction with the patient's clinical presentation,history and other laboratory results. If the results areinconsistent with clinical evidence, additional testing issuggested to confirm the result. 12/21/2023 4:14 PM EDT 12/21/2023 4:14 PM EDT us Generic External Data Provider LAB BLOOD ORDERAB LES Final Result [facility] [address] [place] [phone] * ALBUMIN, RANDOM URINE W/CREATININE (12/19/2020 8:58 AM EST) [facility] Microalbumin Urine 0.2 See Note: mg/dL [facility] [...] Creatinine, Urine 48 20 - 320 mg/dL [facility] 12/19/2020 8:58 AM EST us Piedad Little MD LAB URINE ORDERABLES Final Result [facility] [address] from Last 3 Months or Most Recently Relevant to Health Maintenance Insurance [facility] UHC MEDICARE ADVANTAGE D[facility]AL [facility] Care Teams Route Salesman And Driver Relationship Specialty Start Date End Date Piedad Pacheco MD [address] [place] [phone] PCP - General Family Medicine 10/26/20
--- OUTSIDE RECORDS SUMMARY | 2025-02-28 13:11 | XMS_ITS | Clinical Summary ---
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 Medical History Medical History Date Comments Anxiety 02/11/2012 DX:Anxiety Depression 02/11/2012 DX:Depression Restless leg syndrome 02/11/2012 DX:Restles s leg syndrome Elevated rheumatoid factor 03/31/2012 DX:El evated rheumatoid factor Unspecified essential hypertension DX:Unspecified essential hypertension Family History Medical History Relation Name Comments Arthritis Mother Arthritis Sister Blindness Neg Hx Cataracts Neg Hx Glaucoma Neg Hx Macular degeneration Neg Hx Strabismus Neg Hx Relation Name Status Comments Father Mother Alive arthritis Sister Social History Tobacco Use Types Packs/Day Years Used Date Smoking Tobacco: Former Cigarettes Q uit: 07/11/2012 Smokeless Tobacco: Never Alcohol Use Standard Drinks/Week Comments Yes 0 (1 standard drink = 0.6 oz pur e alcohol) Sex and Gender Information Value Date Recorded Sex Assigned at Not on file Legal Sex Male 3:03 PM EST Gender Identity Not on file Sexual Orientation Not on file Obstetrics History Last Filed Vital Signs Vital Sign Reading Time Taken Comments Blood Pressure - - Pulse - - Temperature - - Respiratory Rate - - Oxygen Saturation - - Inhaled Oxygen Concentration - - Weight 102 kg (225 lb) 07/22/2023 3:12 PM EDT Height 167.6 cm (5' 6 ) 07/22/2023 3:12 PM EDT Body Mass Index 36.32 07/22/2023 3:12 PM EDT Plan of Treatment Health Maintenance Due Date Last Done Comments Zoster Vaccines (1 of 2) 2011 Pneumococcal Vaccine: 50+ Years (2 of 2 - PCV) 08/29/2020 08/29/2019, 04/23/2015 Colorectal Cancer Screening: Colonoscopy 11/15/2023 Depression Screening 11/15/2023 HIV Screening 11/15/2023 Hepatitis C Screening 11/15/2023 Medicare Annual Wellness Visit 11/15/2023 Social Influencers of Health Screening 11/15/2023 COVID-19 Vaccine ( season) 2024 Hypertension/CHF/CAD Annual BMP Blood Test 03/24/2025 03/24/2024, 03/23/2024, 03/22/2024 Influenza Vaccine (Season Ended) 2025 08/21/2022, 08/29/2019, 07/23/2017, Additional history exists DTaP,Tdap,and Td Vaccines (4 - Td or Tdap) 06/11/2027 06/11/2017, 04/23/2015, 08/23/2013 Cholesterol Screening (Lipid Panel) 03/22/2029 03/22/2024 RSV Immunization Adult Patients (1 - 1-dose 75+ series) 2036 Pneumococcal Vaccine: Pediatrics (0 to 5 Years) and At-Risk Patients (6 to 64 Years) Aged Out 08/29/2019, 04/23/2015 No longer eligibl e based on patient's age to complete this topic HIB Vaccines Aged Out No longer eligi [...] on patient's age to complete this topic MMR Vaccines Aged Out No longer eligi ble based on patient's age to complete this topic Meningococcal ACWY Vaccine Aged Out N o longer eligible based on patient's age to complete this topic Meningococcal B Vaccine Aged Out No l onger eligible based on patient's age to complete this topic RSV Immunization Patients Under 20 months Aged Out No longer eligible based on patient's age to complete this topic Varicella Vaccines Aged Out No longer eligible based on patient's age to complete this topic Procedures Procedure Name Priority Date/Time Associated Diagnosis Comments URINALYSIS WITH REFLEX MICROSCOPIC Routine 01/26/2025 1:12 PM EDT Urinary tract infection, site not specified COMPLETE BLOOD COUNT Routine 01/26/2025 1:12 PM EDT Urinary tract infection, site not specified URINALYSIS WITH REFLEX MICROSCOPIC Routine 01/26/2025 1:12 PM EDT Urinary tract infection, site not specified CULTURE URINE Routine 01/26/2025 1:12 PM EDT Urinary tract infection, site not specified from Last 3 Months Results * (ABNORMAL) Urinalysis with reflex microscopic (01/26/2025 1:12 PM EDT) Specific [place] Urine 1.026 1.003 - 1.030 LAB URINALYSIS - AUTOMATED METHOD 01/26/2025 7:02 PM [facility] pH, Urine 5.5 5.0 - 8.0 pH LAB URINALYSIS - AUTOMATED METHOD 01/26/2025 7:02 PM [facility] Leukocytes, Urine Negative Negative LAB URINALYSIS - AUTOMATED METHOD 01/26/2025 7:02 PM [facility] Nitrite, Urine Negative Negative LAB URINALYSIS - AUTOMATED METHOD 01/26/2025 7:02 PM [facility] Protein, Urine Trace <=Trace mg/dL LAB URINALYSIS - AUTOMATED METHOD 01/26/2025 7:02 PM EDT [facility] Glucose, Urine >=1000(A) Negative mg/dL LAB URINALYSIS - AUTOMATED METHOD 01/26/2025 7:02 PM EDT [facility] Ketones, Urine Negative Negative mg/dL LAB URINALYSIS - AUTOMATED METHOD 01/26/2025 7:02 PM EDT [facility] Urobilinogen , Urine 1.0 0.2 - 1.0 mg/dL LAB URINALYSIS - AUTOMATED METHOD 01/26/2025 7:02 PM EDT [facility] Bilirubin, Urine Negative Negative LAB URINALYSIS - AUTOMATED METHOD 01/26/2025 7:02 PM EDT [facility] Blood, Urine Negative Negative LAB URINALYSIS - AUTOMATED METHOD 01/26/2025 7:02 PM [facility] Urine Urine specimen obtained by clean catch procedure / Unknown 01/26/2025 1:12 PM EDT 01/26/2025 6:10 PM EDT us Juan Davidson MD LAB URINE ORDERABLES Final Result [facility] [address] [place] [address], [place] [phone] * Complete blood count (01/26/2025 1:12 PM EDT) WBC 9.1 4.8 - 10.8 K/mcL LAB HEMETOLOGY METHOD 01/26/2025 6:52 PM EDT [facility] RBC 5.40 4.50 - 5.50 M/mcL LAB HEMETOLOGY METHOD 01/26/2025 6:52 PM EDT [facility] Hemoglobin 16.5 13.5 - 17.5 g/dL LAB HEMETOLOGY METHOD 01/26/2025 6:52 PM EDT [facility] Hematocrit 50.1 42.0 - 54.0 % LAB HEMETOLOGY METHOD 01/26/2025 6:52 PM EDT [facility] MCV 92.9 79.0 - 98.0 FL LAB HEMETOLOGY METHOD 01/26/2025 6:52 PM EDT [facility] MCH 30.6 27.0 - 32.0 pcg LAB HEMETOLOGY METHOD 01/26/2025 6:52 PM EDT [facility] MCHC 32.9 32.0 - 37.0 g/dL LAB HEMETOLOGY METHOD 01/26/2025 6:52 PM EDT [facility] RDW 12.1 11.0 - 15.0 % LAB HEMETOLOGY METHOD 01/26/2025 6:52 PM EDT [facility] Platelets 160 130 - 400 K/mcL LAB HEMETOLOGY METHOD 01/26/2025 6:52 PM EDT [facility] MPV 10.9 7.0 - 11.0 FL LAB HEMETOLOGY METHOD 01/26/2025 6:52 PM EDT [facility] NRBC 0.0 <1.0 % LAB HEMETOLOGY METHOD 01/26/2025 6:52 PM EDT [facility] NRBC Absolute 0.00 <0.10 K/mcL LAB HEMETOLOGY METHOD 01/26/2025 6:52 PM EDT [facility] Blood Venous blood specimen / Unknown 01/26/2025 1:12 PM EDT 01/26/2025 6:10 PM EDT us Juan Davidson MD LAB BLOOD ORDERABLES Final Result [facility] [address] [place] [address], * Culture urine (01/26/2025 1:12 PM EDT) Culture, Urine 10,000-49,000 CFU/mL Mixed urogenital alida, no uropathogens present. Suggest repeat specimen if clinically indicated. 01/27/2025 2:25 PM EDT [facility] Urine Urine specimen obtained by clean catch procedure / Unknown 01/26/2025 1:12 PM EDT 01/26/2025 6:10 PM EDT us Juan Davidson MD LAB MICROBIOLOGY - GENERAL ORDERABLES Final Result [facility] [address] [place] [address], [place] [phone] from Last 3 Months Insurance [employer] MEDICARE ADVANTAGE MEDICAID - [place] Care Teams Toolroom Attendant Relationship Specialty Start Date End Date Piedad Pacheco MD [address] [phone] PCP - General 07/15/23
--- OUTSIDE RECORDS SUMMARY | 2025-02-28 13:11 | XMS_ITS | Encounter Summary ---
Author Organization [employer] Address [address] [facility] [address] [place] [address] Care Team Providers Care Accounts Payable Coordinator Name Role Phone Piedad Pacheco MD Primary Care Provide r Reason for Visit * Reason Comments Med Refill Encounter Details Date Type Department Care Team ([facility] st Contact Info) Description 02/12/2024 Refill [facility] [address] [place], [place] [phone] Piedad Pacheco MD [address] [place] [address] Insomnia, unspecified type Social History Tobacco Use [...] 04/28/2025 9:00 AM EDT Telemedicine [facility] [address] [place] [address] Francy Melara RN 05/31/2025 2:00 PM EDT Office Visit [facility] [address] [place], [place] [phone] Jhonatan, Shanika, OD [address] [place] [address] documented as of this encounter Visit Diagnoses Diagnosis Insomnia, unspecified type documented in this encounter Additional Health Concerns Assessment Noted Time PHQ-9 Depression Total Score: 0 07/14/20 23 11:16 AM EDT documented as of this encounter Care Teams Accounts Payable Coordinator Relationship Specialty Start Date End Date Piedad Pacheco MD [address] [place] [address] PCP - General Family Medicine 10/26/20 documented as of this encounter
--- OUTSIDE RECORDS SUMMARY | 2025-02-28 13:11 | XMS_ITS | Encounter Summary ---
Author Organization [employer] Address [address] [facility] 7t [place] [address] Care Team Providers Care Senior Technical Support Engineer Name Role Phone Piedad Pacheco MD Primary Care Provide r Reason for Visit * Reason Onset Date Comments Nurse Triage 12/02/2023 Encounter Details Date Type Department Care Team ([facility] Contact Info) Description 12/02/2023 Telephone [facility] MEDICINE [address] [place], [place] [phone] Piedad Pacheco MD [address] [place] [address] Nurse Triage Social History Tobacco Use Types [...] referral to specialist regarding hospital visit [place] [facility] [place] . Pt was seen there sent home and then returned to [place] and was admitted and sent to half-way in [place] for rehab. Unclear as to dates, no information is on the chart. Pt did have UTI and pulido catheter and unclear if this was resolved. Pt was told to geta referral to specialist ? as to whether this is regarding back pain or UTI. Advised Pt has an apt with PCP 12/16/23 and can come to [facility] today open till 8pm for any acute problem. Pt reports will wait to see PCP. Advised will send this information to nursing team. Pt agrees and reports that PCP knows all information regarding this situation. Pt does have new insurance [employer] ID # is [id number] Protocol Used: Information Only Call - No [...] Info) Description 04/28/2025 9:00 AM EDT Telemedicine [facility] MEDICINE [address] [place] [address] Francy Melara RN 05/31/2025 2:00 PM EDT Office Visit [facility] OPTOMETRY [address] [place], [place] [phone] Shanika Israel, OD 230 [place] [address] documented as of this encounter Visit Diagnoses Not on filedocumented in this encounter Additional Health Concerns Assessment Noted Time PHQ-9 Depression Total Score: 0 07/14/20 23 11:16 AM EDT documented as of this encounter Care Teams Senior Technical Support Engineer Relationship Specialty Start Date End Date Piedad Pacheco MD [address] [place], [place] [phone] PCP - General Family Medicine 10/26/20 documented as of this encounter
--- OUTSIDE RECORDS SUMMARY | 2025-02-28 13:11 | XMS_ITS | Encounter Summary ---
Author Organization [employer] Address [address] [facility] 7t [place] [address] Care Team Providers Care Gas Turbine Powerplant Mechanic Name Role Phone Piedad Pacheco MD Primary Care Provide r Reason for Visit * Reason Onset Date Comments PT1 05/03/2024 Encounter Details Date Type Department Care Team ([facility] Contact Info) Description 05/03/2024 Telephone [facility] MEDICINE 230 [place], [place] [phone] Piedad Pacheco MD 230 [place] [address] PT1 Social History Tobacco Use Types Packs/Day [...] Provider name or facility name: Facility Address: [address] [place] [address] [address] [place] [address] Escort needed: Y/N: Yes will be going with pt Do you have a wheelchair: Y/N: Yes If yes- Manual or electric: electric Visits: 4-5 times a year documented in this encounter Plan of Treatment Upcoming Encounters Date Type Department Care Team (Late st Contact Info) Description 04/28/2025 9:00 AM EDT Telemedicine [facility] MEDICINE 230 [place] [address] Francy Melara RN 05/31/2025 2:00 PM EDT Office Visit [facility] OPTOMETRY [address] [place] [address] Shanika Israel, OD 230 [place] [address] documented as of this encounter Visit Diagnoses Not on filedocumented in this encounter Additional Health Concerns Assessment Noted Time PHQ-9 Depression Total Score: 0 07/14/20 11:16 AM EDT documented as of this encounter Care Teams Gas Turbine Powerplant Mechanic Relationship Specialty Start Date End Date Piedad Pacheco MD [address] [place] [address] PCP - General Family Medicine 10/26/20 documented as of this encounter
--- OUTSIDE RECORDS SUMMARY | 2025-02-28 13:11 | XMS_ITS | Encounter Summary ---
Author Organization [employer] Address [address] [facility] 7t [place] [address] Care Team Providers Care Paster Operator Name Role Phone Piedad Pacheco MD Primary Care Provide r Encounter Details Date Type Department Care Team ([facility] Contact Info) Description 02/28/2025 Orders Only GENERIC EXTERNAL DATA DEPARTMENT Provider, Generic External Data Social History Tobacco Use Types Packs/Day Years [...] Info) Description 04/28/2025 9:00 AM EDT Telemedicine [facility] MEDICINE 230 [place] [address] Francy Melara RN 05/31/2025 2:00 PM EDT Office Visit [facility] OPTOMETRY [address] [place] [address] Jhonatan, Shanika, OD 230 [place] [address] documented as of this encounter Procedures Procedure Name Priority Date/Time Associated Diagnosis Comments BASIC METABOLIC PANEL Routine 02/28/2025 12:17 PM EDT documented in this encounter Results * (ABNORMAL) Basic Metabolic Panel (02/28/2025 12:17 PM EDT) Sodium 138 135 - 145 mmol/L [facility] Potassium 4.1 3.3 - 5.1 mmol/L [facility] Chloride 105 96 - 108 mmol/L [facility] Carbon Dioxide 25 22 - 29 mmol/L [facility] Anion Gap 12 12 - 20 [facility] Urea Nitrogen (BUN) 14 9 - 16 mg/dL [facility] Creatinine, Serum 0.95 0.5 - 1.4 mg/dL [facility] Estimated Glomerular Filt Rate >60 [facility] Comment:Chronic Kidney Disea se: Estimated GFR < 60 mL/min/[id number] Kidney Disease: Estimated GFR < 15 mL/min/1.73m2 Glucose 136(H) 60 - 115 mg/dL [facility] Calcium 9.0 8.4 - 10.2 mg/dL [facility] 02/28/2025 12:1 7 PM EDT 02/28/2025 12:23 PM EDT us Generic External Data Provider LAB BLOOD ORDERAB LES Final Result [facility] [address] [place] [address] [phone] documented in this encounter Visit Diagnoses Not on filedocumented in this encounter Additional Health Concerns Assessment Noted Time PHQ-9 Depression Total Score: 0 10/19/19 25 10:23 AM EST documented as of this encounter Care Teams Paster Operator Relationship Specialty Start Date End Date Piedad Pacheco MD 230 [place] [address] PCP - General Family Medicine 10/26/20 documented as of this encounter
--- OUTSIDE RECORDS SUMMARY | 2025-02-28 13:11 | XMS_ITS | Encounter Summary ---
Author Organization [employer] Address [address] [facility] 7t [place] [address] Care Team Providers Care Envelope Machine Adjuster Name Role Phone Piedad Pacheco MD Primary Care Provide r Reason for Visit * Reason Onset Date Comments Med Refill 01/29/2024 Encounter Details Date Type Department Care Team ([facility] Contact Info) Description 01/29/2024 Telephone [facility] MEDICINE 230 [place], [place] [phone] Piedad Pacheco MD 230 [place] [address] Med Refill Social History Tobacco Use Types [...] 10 MG tablet To be sent to: [facility] [address] [place] [address] documented in this encounter Plan of Treatment Upcoming Encounters Date Type Department Care Team (Late st Contact Info) Description 04/28/2025 9:00 AM EDT Telemedicine [facility] MEDICINE [address] [place] [address] Francy Melara RN 05/31/2025 2:00 PM EDT Office Visit [facility] OPTOMETRY [address] [place] [address] Shanika Israel, OD [address] [place] [address] documented as of this encounter Visit Diagnoses Not on filedocumented in this encounter Additional Health Concerns Assessment Noted Time PHQ-9 Depression Total Score: 0 07/14/20 23 11:16 AM EDT documented as of this encounter Care Teams Envelope Machine Adjuster Relationship Specialty Start Date End Date Piedad Pacheco MD 230 [place] [address] PCP - General Family Medicine 1/15/21 documented as of this encounter
--- OUTSIDE RECORDS SUMMARY | 2025-02-28 13:11 | XMS_ITS | Encounter Summary ---
Author Organization [employer] Address [address] [facility] 7t [place] [address] Care Team Providers Care Print Production Coordinator Name Role Phone Piedad Pacheco MD Primary Care Provide r Reason for Visit * Reason Onset Date Comments Med Refill 02/08/2024 Encounter Details Date Type Department Care Team ([facility] Contact Info) Description 02/08/2024 Telephone [facility] MEDICINE 230 [place], [place] [phone] Piedad Pacheco MD 230 [place] [address] Med Refill Social History Tobacco Use Types [...] 10:24 AM EDT Medication was sent to [facility] 2386 on 09/18/23 90 day supply with 1 refill. * Telephone Encounter - Chris Briggs - 02/08/2024 9:59 AM EDT TC from pt requesting medication refill. Medications needing refill: rOPINIRole (Requip) 2 MG tablet To be sent to: [facility] documented in this encounter Plan of Treatment Upcoming Encounters Date Type Department Care Team (Late st Contact Info) Description 04/28/2025 9:00 AM EDT Telemedicine [facility] MEDICINE [address] [place] [address] Francy Melara RN 05/31/2025 2:00 PM EDT Office Visit [facility] OPTOMETRY [address] [place], [place] [phone] Shanika Israel, MELLISA 230 [place] [address] documented as of this encounter Visit Diagnoses Not on filedocumented in this encounter Additional Health Concerns Assessment Noted Time PHQ-9 Depression Total Score: 0 07/14/20 23 11:16 AM EDT documented as of this encounter Care Teams Print Production Coordinator Relationship Specialty Start Date End Date Piedad Pacheco MD [address] [place] [address] PCP - General Family Medicine 10/26/20 documented as of this encounter
--- OUTSIDE RECORDS SUMMARY | 2025-02-28 13:11 | XMS_ITS | Encounter Summary ---
Author Organization [employer] Address [address] [place] [address] Care Team Providers Care Swim Coach Name Role Phone Piedad Pacheco MD Primary Care Provide r Encounter Details Date Type Department Care Team (Late st Contact Info) Description 01/26/2025 Lab Requisition [facility] [address] [facility] [place] [phone] Juan Davidson MD [address] [place] [address] Urinary tract infection, site not specified Social History Tobacco Use Types Packs/Day Years [...] on file Sexual Orientation Not on file documented as of this encounter Plan of Treatment Not on file documented as of this encounter Procedures Procedure [...] EDT Urinary tract infection, site not specified documented in this encounter Results * (ABNORMAL) Urinalysis with reflex microscopic (01/26/2025 1:12 PM EDT) Specific [place] Urine 1.026 1.003 - 1.030 LAB URINALYSIS - AUTOMATED METHOD 01/26/2025 7:02 PM [facility] pH, Urine 5.5 5.0 - 8.0 pH LAB URINALYSIS - AUTOMATED METHOD 01/26/2025 7:02 PM [facility] Leukocytes, Urine Negative Negative LAB URINALYSIS - AUTOMATED METHOD 01/26/2025 7:02 PM [facility] Nitrite, Urine Negative Negative LAB URINALYSIS - AUTOMATED METHOD 01/26/2025 7:02 PM [facility] Protein, Urine Trace <=Trace mg/dL LAB URINALYSIS - AUTOMATED METHOD 01/26/2025 7:02 PM [facility] Glucose, Urine >=1000(A) Negative mg/dL LAB URINALYSIS - AUTOMATED METHOD 01/26/2025 7:02 PM [facility] Ketones, Urine Negative Negative mg/dL LAB URINALYSIS - AUTOMATED METHOD 01/26/2025 7:02 PM [facility] Urobilinogen , Urine 1.0 0.2 - 1.0 mg/dL LAB URINALYSIS - AUTOMATED METHOD 01/26/2025 7:02 PM [facility] Bilirubin, Urine Negative Negative LAB URINALYSIS - AUTOMATED METHOD 01/26/2025 7:02 PM [facility] Blood, Urine Negative Negative LAB URINALYSIS - AUTOMATED METHOD 01/26/2025 7:02 PM EDT [facility] Urine Urine specimen obtained by clean catch procedure / Unknown 01/26/2025 1:12 PM EDT 01/26/2025 6:10 PM EDT Juan Davidson MD LAB URINE ORDERABLES Final Result [facility] [address] [place] [address], [place] [phone] * Complete blood count (01/26/2025 1:12 PM EDT) WBC 9.1 4.8 - 10.8 K/mcL LAB HEMETOLOGY METHOD 01/26/2025 6:52 PM EDT [facility] RBC 5.40 4.50 - 5.50 M/mcL LAB HEMETOLOGY METHOD 01/26/2025 6:52 PM EDT [facility] Hemoglobin 16.5 13.5 - 17.5 g/dL LAB HEMETOLOGY METHOD 01/26/2025 6:52 PM EDT [facility] Hematocrit 50.1 42.0 - 54.0 % LAB HEMETOLOGY METHOD 01/26/2025 6:52 PM EDT [facility] MCV 92.9 79.0 - 98.0 FL LAB HEMETOLOGY METHOD 01/26/2025 6:52 PM EDT [facility] MCH 30.6 27.0 - 32.0 pcg LAB HEMETOLOGY METHOD 01/26/2025 6:52 PM EDT [facility] MCHC 32.9 32.0 - 37.0 g/dL LAB HEMETOLOGY METHOD 01/26/2025 6:52 PM [facility] RDW 12.1 11.0 - 15.0 % LAB HEMETOLOGY METHOD 01/26/2025 6:52 PM EDT [facility] Platelets 160 130 - 400 K/mcL LAB HEMETOLOGY METHOD 01/26/2025 6:52 PM EDT [facility] MPV 10.9 7.0 - 11.0 FL LAB HEMETOLOGY METHOD 01/26/2025 6:52 PM EDT [facility] NRBC 0.0 <1.0 % LAB HEMETOLOGY METHOD 01/26/2025 6:52 PM EDT [facility] NRBC Absolute 0.00 <0.10 K/[facility] LAB HEMETOLOGY METHOD 01/26/2025 6:52 PM EDT [facility] Blood Venous blood specimen / Unknown 01/26/2025 1:12 PM EDT 01/26/2025 6:10 PM EDT Juan Davidson MD LAB BLOOD ORDERABLES Final Result Performing Organization Address [facility]/ZIP Co de Phone Number [facility] [address] [place] [address], [place] [phone] * Culture urine (01/26/2025 1:12 PM EDT) Culture, Urine 10,000-49,000 CFU/mL Mixed urogenital alida, no uropathogens present. Suggest repeat specimen if clinically indicated. 01/27/2025 2:25 PM EDT [facility] Urine Urine specimen obtained by clean catch procedure / Unknown 01/26/2025 1:12 PM EDT 01/26/2025 6:10 PM EDT Juan Davidson MD LAB MICROBIOLOGY - GENERAL ORDERABLES Final Result Performing Organization Address [facility]/ZIP Co de Phone Number [facility] [address] [place] [address], [place] [phone] documented in this encounter Visit Diagnoses Diagnosis Urinary tract infection, site not specified documented in this encounter Care Teams Swim Coach Relationship Specialty Start Date End Date Piedad Pacheco MD [address] [phone] PCP - General 07/15/23 documented as of this encounter
--- OUTSIDE RECORDS SUMMARY | 2025-02-28 13:11 | XMS_ITS | Encounter Summary ---
Author Organization [employer] Address [address] [facility] 7t [place] [address] Care Team Providers Care Class A Truck Driver Name Role Phone Piedad Pacheco MD Primary Care Provide r Reason for Visit * Reason Onset Date Comments Med Refill 12/09/2023 Encounter Details Date Type Department Care Team ([facility] Contact Info) Description 12/09/2023 Telephone [facility] [address] [place], [place] [phone] Piedad Pacheco MD 230 [place] [address] Med Refill Social History Tobacco Use Types [...] 10 MG tablet To be sent to: [facility] [address] [place] [address] documented in this encounter Plan of Treatment Upcoming Encounters Date Type Department Care Team (Late st Contact Info) Description 04/28/2025 9:00 AM EDT Telemedicine [facility] MEDICINE [address] [place], [place] [phone] Francy Melara RN 05/31/2025 2:00 PM EDT Office Visit [facility] OPTOMETRY [address] [place], [place] [phone] Shanika Israel OD [address] [place] [address] documented as of this encounter Visit Diagnoses Not on filedocumented in this encounter Additional Health Concerns Assessment Noted Time PHQ-9 Depression Total Score: 0 07/14/20 23 11:16 AM EDT documented as of this encounter Care Teams Class A Truck Driver Relationship Specialty Start Date End Date Piedad Pacheco MD 230 [place] [address] PCP - General Family Medicine 10/26/20 documented as of this encounter
--- OUTSIDE RECORDS SUMMARY | 2025-02-28 13:11 | XMS_ITS | Encounter Summary ---
Author Organization [employer] Address [address] [facility] 7t [place] [address] Care Team Providers Care Temperature Logging Operator Name Role Phone Pidead Pacheco MD Primary Care Provide r Reason for Visit * Reason Onset Date Comments Med Refill 08/31/2024 Encounter Details Date Type Department Care Team ([facility] Contact Info) Description 08/31/2024 Telephone [facility] MEDICINE [address] [place] [address] Piedad Pacheco MD [address] [place] [address] Med Refill Social History Tobacco Use Types [...] immediate release tablet To be sent to: [facility] [address] [place] [address] documented in this encounter Plan of Treatment Upcoming Encounters Date Type Department Care Team (Late st Contact Info) Description 04/28/2025 9:00 AM EDT Telemedicine [facility] MEDICINE [address] [place] [address] Francy Melara RN 05/31/2025 2:00 PM EDT Office Visit [facility] OPTOMETRY [address] [place] [address] Shanika Israel, OD [address] [place] [address] documented as of this encounter Visit Diagnoses Not on filedocumented in this encounter Additional Health Concerns Assessment Noted Time PHQ-9 Depression Total Score: 0 07/14/20 23 11:16 AM EDT documented as of this encounter Care Teams Temperature Logging Operator Relationship Specialty Start Date End Date Piedad Pacheco MD [address] [place] [address] PCP - General Family Medicine 10/26/20 documented as of this encounter
--- OUTSIDE RECORDS SUMMARY | 2025-02-28 13:11 | XMS_ITS | Encounter Summary ---
Author Organization [employer] Address [address] [facility] 7t [place] [address] Care Team Providers Care Machining Department Supervisor Name Role Phone Piedad Pacheco MD Primary Care Provide r Encounter Details Date Type Department Care Team (Late st Contact Info) Description 01/28/2023 Orders Only [facility] [address] [place] [address] Jen Cortez LPN Social History Tobacco Use [...] EDT Telemedicine [facility] MEDICINE [address] [place] [address] Francy Melara RN 05/31/2025 2:00 PM EDT Office Visit [facility] OPTOMETRY [address] [place] [address] Shanika Israel, OD 230 [place] [address] documented as of this encounter Visit Diagnoses Not on filedocumented in this encounter Care Teams Machining Department Supervisor Relationship Specialty Start Date End Date Piedad Pacheco MD [address] [place] [address] PCP - General Family Medicine 10/26/20 documented as of this encounter
--- OUTSIDE RECORDS SUMMARY | 2025-02-28 13:11 | XMS_ITS | Encounter Summary ---
Author Organization [employer] Address [address] [facility] 7t [place] [address] Care Team Providers Care Spool Winder Name Role Phone Piedad Pacheco MD Primary Care Provide r Encounter Details Date Type Department Care Team ([facility] st Contact Info) Description 09/15/2023 Telephone [facility] MEDICINE [address] [place], [place] [phone] Piedad Pacheco MD [address] [place], [place] [phone] Social History Tobacco Use Types Packs/Day Years [...] 04/28/2025 9:00 AM EDT Telemedicine [facility] MEDICINE [address] [place] [address] Francy Melara RN 05/31/2025 2:00 PM EDT Office Visit [facility] OPTOMETRY [address] [place], [place] [phone] Jhonatan, Shanika, OD [address] [place] [address] documented as of this encounter Visit Diagnoses Not on filedocumented in this encounter Additional Health Concerns Assessment Noted Time PHQ-9 Depression Total Score: 0 07/14/20 23 11:16 AM EDT documented as of this encounter Care Teams Spool Winder Relationship Specialty Start Date End Date Piedad Pacheco MD 230 [place] [address] PCP - General Family Medicine 10/26/20 documented as of this encounter
--- OUTSIDE RECORDS SUMMARY | 2025-02-28 13:11 | XMS_ITS | Encounter Summary ---
Author Organization [employer] Address [address] [facility] 7t [place] [address] Care Team Providers Care Ethylbenzene Converter Helper Name Role Phone Piedad Pacheco MD Primary Care Provide r Reason for Visit * Reason Comments Med Refill Encounter Details Date Type Department Care Team ([facility] st Contact Info) Description 02/10/2024 Refill [facility] MEDICINE 230 [place], [place] [phone] Doris Dunne MD [address] [place], [place] [phone] Restless leg syndrome Social History Tobacco Use [...] Info) Description 04/28/2025 9:00 AM EDT Telemedicine [facility] MEDICINE [address] [place] [address] Francy Melara RN 05/31/2025 2:00 PM EDT Office Visit [facility] OPTOMETRY [address] [place] [address] Jhonatan, Shanika, OD [address] [place] [address] documented as of this encounter Visit Diagnoses Diagnosis Restless leg syndrome Restless legs syndrome (RLS) documented in this encounter Additional Health Concerns Assessment Noted Time PHQ-9 Depression Total Score: 0 07/14/20 23 11:16 AM EDT documented as of this encounter Care Teams Ethylbenzene Converter Helper Relationship Specialty Start Date End Date Piedad Pacheco MD [address] [place] [address] PCP - General Family Medicine 10/26/20 documented as of this encounter
--- OUTSIDE RECORDS SUMMARY | 2025-02-28 13:11 | XMS_ITS | Encounter Summary ---
Author Organization [employer] Address [address] [facility] 7t [place] [address] Care Team Providers Care Repairer Evaporator Name Role Phone Piedad Pacheco MD Primary Care Provide r Reason for Visit * Reason Onset Date Comments Pt1 09/28/2024 Encounter Details Date Type Department Care Team ([facility] Contact Info) Description 09/28/2024 Telephone [facility] MEDICINE 230 [place], [place] [phone] Piedad Pacheco MD [address] [place] [address] Pt1 Social History Tobacco Use Types Packs/Day [...] or facility name: Urology Facility Address: [address] [facility] Escort needed: Y/N: Yes Do you have a wheelchair: Y/N: Yes If yes- Manual or electric: Electric Visits: 1 x 3 months Patient calling requesting PT1 Home Address verified: Y/N: Yes Provider name or facility name: [facility] Address: [address] [place] [address] Escort needed: Y/N: Yes Do you have [...] EDT Telemedicine [facility] MEDICINE [address] [place] [address] Francy Melara RN 05/31/2025 2:00 PM EDT Office Visit [facility] OPTOMETRY [address] [place] [address] Shanika Israel, OD 230 [place] [address] documented as of this encounter Visit Diagnoses Not on filedocumented in this encounter Additional Health Concerns Assessment Noted Time PHQ-9 Depression Total Score: 0 07/14/20 23 11:16 AM EDT documented as of this encounter Care Teams Repairer Evaporator Relationship Specialty Start Date End Date Piedad Pacheco MD 230 [place], [place] [phone] PCP - General Family Medicine 10/26/20 documented as of this encounter
--- OUTSIDE RECORDS SUMMARY | 2025-02-28 13:11 | XMS_ITS | Encounter Summary ---
Author Organization [employer] Address 75 [facility] 7t [place] [address] Care Team Providers Care Pick Remover Name Role Phone Piedad Pacheco MD Primary Care Provide r Reason for Visit * Reason Onset Date Comments Appointment 12/26/2022 Encounter Details Date Type Department Care Team ([facility] Contact Info) Description 12/26/2022 Telephone [facility] ADULT DENTAL [address] [place], [place] [phone] Ruddy Vazquez DDS [address] [place] [address] Appointment Social History Tobacco Use Types Packs/Day [...] EDT Telemedicine [facility] MEDICINE [address] [place] [address] Francy Melara, SLADE 05/31/2025 2:00 PM EDT Office Visit [facility] OPTOMETRY [address] [place] [address] Shanika Israel, OD 230 [place] [address] documented as of this encounter Visit Diagnoses Not on filedocumented in this encounter Care Teams Pick Remover Relationship Specialty Start Date End Date Piedad Pacheco MD 230 [place] [address] PCP - General Family Medicine 10/26/20 documented as of this encounter
--- OUTSIDE RECORDS SUMMARY | 2025-02-28 13:11 | XMS_ITS | Encounter Summary ---
Author Organization [employer] Address [address] [facility] [address] 7t [place] [address] Care Team Providers Care Asphalt Still Operator Name Role Phone Piedad Pacheco MD Primary Care Provide r Encounter Details Date Type Department Care Team ([facility] st Contact Info) Description 12/13/2024 Orders Only [facility] WALK-IN CENTER [address] [place], [place] [phone] Ronald Zimmerman MD [address] [place] [address] Social History Tobacco Use Types Packs/Day Years [...] Info) Description 04/28/2025 9:00 AM EDT Telemedicine [facility] MEDICINE 230 [place] [address] Francy Melara RN 05/31/2025 2:00 PM EDT Office Visit [facility] OPTOMETRY [address] [place] [address] Jhonatan, Shanika, OD 230 [place] [address] documented as of this encounter Visit Diagnoses Not on filedocumented in this encounter Additional Health Concerns Assessment Noted Time PHQ-9 Depression Total Score: 0 10/19/19 25 10:23 AM EST documented as of this encounter Care Teams Asphalt Still Operator Relationship Specialty Start Date End Date Piedad Pacheco MD [address] [place] [address] PCP - General Family Medicine 10/26/20 documented as of this encounter
--- OUTSIDE RECORDS SUMMARY | 2025-02-28 13:11 | XMS_ITS | Encounter Summary ---
Author Organization [employer] Address 75 [facility] 7t [place] [address] Care Team Providers Care Laundromat Manager Name Role Phone Piedad Pacheco MD Primary Care Provide r Reason for Visit * Reason Onset Date Comments Med Refill 05/25/2024 Encounter Details Date Type Department Care Team ([facility] st Contact Info) Description 05/25/2024 Telephone [facility] MEDICINE [address] [place], [place] [phone] Piedad Pacheco MD 230 [place] [address] Med Refill Social History Tobacco Use Types [...] 10 MG tablet To be sent to: [facility] [address] [place] [address] documented in this encounter Plan of Treatment Upcoming Encounters Date Type Department Care Team (Late st Contact Info) Description 04/28/2025 9:00 AM EDT Telemedicine [facility] MEDICINE [address] [place] [address] Francy Melara RN 05/31/2025 2:00 PM EDT Office Visit [facility] OPTOMETRY [address] [place], [place] [phone] Shanika Israel, OD [address] [place] [address] documented as of this encounter Visit Diagnoses Not on filedocumented in this encounter Additional Health Concerns Assessment Noted Time PHQ-9 Depression Total Score: 0 07/14/20 23 11:16 AM EDT documented as of this encounter Care Teams Laundromat Manager Relationship Specialty Start Date End Date Piedad Pacheco MD 230 [place] [address] PCP - General Family Medicine 10/26/20 documented as of this encounter
--- OUTSIDE RECORDS SUMMARY | 2025-02-28 13:11 | XMS_ITS | Encounter Summary ---
Author Organization [employer] Address 75 [facility] 7t [place] [address] Care Team Providers Care Cable Reeler Name Role Phone Piedad Pacheco MD Primary Care Provide r Encounter Details Date Type Department Care Team (Late st Contact Info) Description 03/31/2023 Orders Only [facility] CHC MED & PEDS [address] [place] [address] Jen Cortez LPN Social History Tobacco Use [...] Info) Description 04/28/2025 9:00 AM EDT Telemedicine [facility] MEDICINE 230 [place] [address] Francy Melara RN 05/31/2025 2:00 PM EDT Office Visit [facility] OPTOMETRY [address] [place] [address] Shanika Israel, OD 230 [place] [address] documented as of this encounter Visit Diagnoses Not on filedocumented in this encounter Care Teams Cable Reeler Relationship Specialty Start Date End Date Piedad Pacheco MD 230 [place] [address] PCP - General Family Medicine 10/26/20 documented as of this encounter
--- OUTSIDE RECORDS SUMMARY | 2025-02-28 13:11 | XMS_ITS | Clinical Summary ---
Author Organization [facility] [employer] Address [address] [place] [address] Care Team Providers Care Director Of Business Systems Name Role Phone Piedad Pacheco MD Primary [...] Advance Directives For more information, please contact: [phone] Latest Code Status on File Code Status Date Activated Date Inactivated Comments Full Code 03/22/2024 2:04 AM 03/26/2024 1:02 AM This code status was ascertained in the following way: discussion with patient . Care Teams Director Of Business Systems Relationship Specialty Start Date End Date Piedad Pacheco MD [address] [place] [phone] PCP - General Internal Medicine 03/21/24
--- OUTSIDE RECORDS SUMMARY | 2025-02-28 13:11 | XMS_ITS | Encounter Summary ---
Author Organization [employer] Address 75 [facility] 7t [place] [address] Care Team Providers Care Horse Show Manager Name Role Phone Piedad Pacheco MD Primary Care Provide r Encounter Details Date Type Department Care Team (Late st Contact Info) Description 01/09/2023 Orders Only [facility] CHC MED & PEDS [address] [place] [address] Jen Cortez LPN Social History Tobacco Use [...] 04/28/2025 9:00 AM EDT Telemedicine [facility] MEDICINE 230 [place] [address] Francy Melara RN 05/31/2025 2:00 PM EDT Office Visit [facility] OPTOMETRY [address] [place] [address] Shanika Israel, OD [address] [place] [address] documented as of this encounter Visit Diagnoses Not on filedocumented in this encounter Care Teams Horse Show Manager Relationship Specialty Start Date End Date Piedad Pacheco MD [address] [place] [address] PCP - General Family Medicine 10/26/20 documented as of this encounter
--- OUTSIDE RECORDS SUMMARY | 2025-02-28 13:11 | XMS_ITS | Encounter Summary ---
Author Organization [employer] Address 75 [facility] 7t [place] [address] Care Team Providers Care Farmworker Fur Name Role Phone Piedad Pacheco MD Primary Care Provide r Reason for Visit * Reason Onset Date Comments Med Refill 02/27/2025 Encounter Details Date Type Department Care Team (Late st Contact Info) Description 02/27/2025 Refill [facility] MEDICINE [address] [place] [address] Piedad Pacheco MD 230 [place] [address] Lumbar radiculopathy Social History Tobacco Use Types Packs/Day Years [...] * Telephone Encounter - Jessi Robison - 02/27/2025 2:18 PM EDT TC from pt requesting medication refill. Medications needing refill : oxyCODONE (Roxicodone) 5 MG immediate release tablet To be sent to: [facility] [address] [place] [address] documented in this encounter Plan of Treatment Upcoming Encounters Date Type Department Care Team (Late st Contact Info) Description 04/28/2025 9:00 AM EDT Telemedicine [facility] MEDICINE 230 [place] [address] Francy Melara RN 05/31/2025 2:00 PM EDT Office Visit [facility] OPTOMETRY [address] [place] [address] Shanika Israel, OD 230 [place] [address] documented as of this encounter Visit Diagnoses Diagnosis Lumbar radiculopathy Thoracic or lumbosacral neuritis or radiculitis, unspecified documented in this encounter Additional Health Concerns Assessment Noted Time PHQ-9 Depression Total Score: 0 10/19/19 25 10:23 AM EST documented as of this encounter Care Teams Farmworker Fur Relationship Specialty Start Date End Date Piedad Pacheco MD [address] [place] [address] PCP - General Family Medicine 10/26/20 documented as of this encounter
--- OUTSIDE RECORDS SUMMARY | 2025-02-28 13:11 | XMS_ITS | Encounter Summary ---
Author Organization [employer] Address 75 [facility] 7t [place] [address] Care Team Providers Care Electric Appliance Installer Name Role Phone Piedad Pacheco MD Primary Care Provide r Reason for Visit * Reason Comments Med Refill Encounter Details Date Type Department Care Team ([facility] st Contact Info) Description 12/01/2023 Refill [facility] MEDICINE 230 [place], [place] [phone] Name, MD Juno [address] [place] [address] Social History Tobacco Use Types Packs/Day Years [...] EDT Telemedicine [facility] MEDICINE [address] [place] [address] Francy Melara RN 05/31/2025 2:00 PM EDT Office Visit [facility] OPTOMETRY [address] [place], [place] [phone] Shanika Israel, OD [address] [place] [address] documented as of this encounter Visit Diagnoses Not on filedocumented in this encounter Additional Health Concerns Assessment Noted Time PHQ-9 Depression Total Score: 0 07/14/20 23 11:16 AM EDT documented as of this encounter Care Teams Electric Appliance Installer Relationship Specialty Start Date End Date Piedad Pacheco MD 230 [place] [address] PCP - General Family Medicine 10/26/20 documented as of this encounter
--- OUTSIDE RECORDS SUMMARY | 2025-02-28 13:11 | XMS_ITS | Encounter Summary ---
Author Organization [employer] Address 75 [facility] 7t [place] [address] Care Team Providers Care Auto Transmission Technician Name Role Phone Piedad Pacheco MD Primary Care Provide r Reason for Visit * Reason Onset Date Comments Nurse Triage 02/23/2025 Encounter Details Date Type Department Care Team ([facility] Contact Info) Description 02/23/[address] [facility] MEDICINE 230 [place] [address] Piedad Pacheco MD [address] [place] [address] Nurse Triage Social History Tobacco Use Types [...] encounter Miscellaneous Notes * Telephone Encounter - Rosibel Huynh RN - 02/23/2025 1:40 PM EDT Called pt. He states that he has been having pain in his lower left side of back that radiates downleft leg. Left leg is painful and numb. No swelling in leg. Pt. Is inquiring about Acupuncture for pain relief. Called pt. Back after inquiring about Acupuncture. Advised him on location where Acupuncture is done in [facility] building behind [facility]. Where the alley is and there is a door to the [facility] building. Pt. Wantedme to text him the hours so I texted pt. Hours of operation for acupuncture. Can walk in during their times I believe 06-22 and and in [facility]. Pt. Will look into the acupuncture and see if that gives him relief. Protocol Used: Back Pain (Adult) Protocol-Based Disposition: Pt. Inquiring about Acupuncture. Video visit offer not recorded Positive Triage Questions: * Moderate back pain (e.g., interferes with normal activities) and present > 3 days * Pain radiates into the thigh or further down the leg * Patient wants to be seen * All higher-acuity triage questions were negative Care Advice Discussed: * Cold or Heat * Sleep * Continue Activity * Pain Medicines * Telephone Encounter - Marguerite Irvin - 02/23/2025 1:16 PM EDT Symptom: Back Pain - Not From Injury Outcome: Talk to a nurse or provider within 15 minutes Reason: Can't walk (unless normally can't walk) The caller accepted this outcome. pt asking for a medication (back pain injection) [phone] documented in this encounter Plan of Treatment Upcoming Encounters Date Type Department Care Team (Late st Contact Info) Description 04/28/2025 9:00 AM EDT Telemedicine [facility] MEDICINE [address] [place] [address] Francy Melara RN 05/31/2025 2:00 PM EDT Office Visit [facility] OPTOMETRY [address] [place] [address] Shanika Israel, OD 230 [place] [address] documented as of this encounter Visit Diagnoses Not on filedocumented in this encounter Additional Health Concerns Assessment Noted Time PHQ-9 Depression Total Score: 0 10/19/19 25 10:23 AM EST documented as of this encounter Care Teams Auto Transmission Technician Relationship Specialty Start Date End Date Piedad Pacheco MD [address] [place] [address] PCP - General Family Medicine 10/26/20 documented as of this encounter
--- OUTSIDE RECORDS SUMMARY | 2025-02-28 13:11 | XMS_ITS | Encounter Summary ---
Author Organization [employer] Address 75 [facility] 7t [place] [address] Care Team Providers Care Pipe Threader Name Role Phone Piedad Pacheco MD Primary Care Provide r Encounter Details Date Type Department Care Team (Late st Contact Info) Description 03/03/2023 Orders Only [facility] CHC MED & PEDS [address] [place] [address] Jen Cortez LPN Social History Tobacco Use [...] [facility] MEDICINE 230 [place] [address] Francy Melara RN 05/31/2025 2:00 PM EDT Office Visit [facility] OPTOMETRY [address] [place] [address] Shanika Israel, OD 230 [place] [address] documented as of this encounter Visit Diagnoses Not on filedocumented in this encounter Care Teams Pipe Threader Relationship Specialty Start Date End Date Piedad Pacheco MD 230 [place] [address] PCP - General Family Medicine 10/26/20 documented as of this encounter
--- OUTSIDE RECORDS SUMMARY | 2025-02-28 13:11 | XMS_ITS | Encounter Summary ---
Author Organization [employer] Address 75 [facility] 7t [place] [address] Care Team Providers Care Braille Operator Name Role Phone Piedad Pacheco MD Primary Care Provide r Reason for Visit * Reason Onset Date Comments Med Refill 09/26/2024 Encounter Details Date Type Department Care Team ([facility] Contact Info) Description 09/26/2024 Telephone [facility] MEDICINE 230 [place], [place] [phone] Piedad Pacheco MD 230 [place] [address] Med Refill Social History Tobacco Use Types [...] on 09/30/24. * Telephone Encounter - Stefania Castle - 09/26/2024 1:01 PM EST TC from pt requesting medication refill. Medications needing refill : oxyCODONE (Roxicodone) 5 MG immediate release tablet To be sent to: [facility] [address] [place] [address] documented in this encounter Plan of Treatment Upcoming Encounters Date Type Department Care Team (Late st Contact Info) Description 04/28/2025 9:00 AM EDT Telemedicine [facility] MEDICINE 230 [place] [address] Francy Melara RN 05/31/2025 2:00 PM EDT Office Visit [facility] OPTOMETRY [address] [place] [address] Jhonatan, Shanika, OD [address] [place] [address] documented as of this encounter Visit Diagnoses Not on filedocumented in this encounter Additional Health Concerns Assessment Noted Time PHQ-9 Depression Total Score: 0 07/14/20 23 11:16 AM EDT documented as of this encounter Care Teams Braille Operator Relationship Specialty Start Date End Date Piedad Pacheco MD [address] [place] [address] PCP - General Family Medicine 10/26/20 documented as of this encounter
--- OUTSIDE RECORDS SUMMARY | 2025-02-28 13:11 | XMS_ITS | Encounter Summary ---
Author Organization [employer] Address 75 [facility] 7t [place] [address] Care Team Providers Care Nurse Extern Name Role Phone Piedad Pacheco MD Primary Care Provide r Reason for Visit * Reason Onset Date Comments callback requested 09/12/2024 Encounter Details Date Type Department Care Team ([facility] Contact Info) Description 09/12/2024 Telephone [facility] MEDICINE [address] [place] [address] Piedad Pacheco MD [address] [place] [address] callback requested Social History Tobacco Use Types [...] 09/12/2024 2:06 PM EST Tc from [place] ([facility]) requesting a callback from PCP or [place] in regards pt (no further info discussed) Callback number [phone] documented in this encounter Plan of Treatment Upcoming Encounters Date Type Department Care Team (Late st Contact Info) Description 04/28/2025 9:00 AM EDT Telemedicine [facility] MEDICINE 230 [place] [address] Francy Melara RN 05/31/2025 2:00 PM EDT Office Visit [facility] OPTOMETRY [address] [place] [address] Shanika Israel, OD 230 [place] [address] documented as of this encounter Visit Diagnoses Not on filedocumented in this encounter Additional Health Concerns Assessment Noted Time PHQ-9 Depression Total Score: 0 07/14/20 23 11:16 AM EDT documented as of this encounter Care Teams Nurse Extern Relationship Specialty Start Date End Date Piedad Pacheco MD [address] [place] [address] PCP - General Family Medicine 10/26/20 documented as of this encounter
--- OUTSIDE RECORDS SUMMARY | 2025-02-28 13:11 | XMS_ITS | Encounter Summary ---
Author Organization [employer] Address 75 [facility] 7t [place] [address] Care Team Providers Care Registered Massage Therapist Name Role Phone Piedad Pacheco MD Primary Care Provide r Encounter Details Date Type Department Care Team (Late st Contact Info) Description 11/07/2022 Orders Only [facility] CHC MED & PEDS [address] [place] [address] Jen Cortez LPN Social History Tobacco Use [...] Info) Description 04/28/2025 9:00 AM EDT Telemedicine [facility] MEDICINE 230 [place] [address] Francy Melara RN 05/31/2025 2:00 PM EDT Office Visit [facility] OPTOMETRY [address] [place] [address] Shanika Israel, OD 230 [place] [address] documented as of this encounter Visit Diagnoses Not on filedocumented in this encounter Care Teams Registered Massage Therapist Relationship Specialty Start Date End Date Piedad Pacheco MD [address] [place] [address] PCP - General Family Medicine 10/26/20 documented as of this encounter
--- OUTSIDE RECORDS SUMMARY | 2025-02-28 13:11 | XMS_ITS | Encounter Summary ---
Author Organization [employer] Address 75 [facility] 7t [place] [address] Care Team Providers Care Evp Sales Name Role Phone Piedad Pacheco MD Primary Care Provide r Encounter Details Date Type Department Care Team ([facility] st Contact Info) Description 02/12/[address] [facility] MEDICINE [address] [place], [place] [phone] Piedad Pacheco MD 230 [place], [place] [phone] Social History Tobacco Use Types Packs/Day Years [...] Description 04/28/2025 9:[address] [facility] MEDICINE [address] [place] [address] Francy Melara RN 05/31/2025 2:00 PM EDT Office Visit [facility] OPTOMETRY [address] [place], [place] [phone] Jhonatan, Shanika, OD [address] [place] [address] documented as of this encounter Visit Diagnoses Not on filedocumented in this encounter Additional Health Concerns Assessment Noted Time PHQ-9 Depression Total Score: 0 07/14/20 23 11:16 AM EDT documented as of this encounter Care Teams Evp Sales Relationship Specialty Start Date End Date Piedad Pacheco MD [address] [place] [address] PCP - General Family Medicine 10/26/20 documented as of this encounter
--- OUTSIDE RECORDS SUMMARY | 2025-02-28 13:11 | XMS_ITS | Encounter Summary ---
Author Organization [employer] Address 75 [facility] 7t [place] [address] Care Team Providers Care Insecticide Maker Name Role Phone Piedad Pacheco MD Primary Care Provide r Encounter Details Date Type Department Care Team ([facility] st Contact Info) Description 09/23/2024 Telephone [facility] MEDICINE 230 [place], [place] [phone] Piedad Pacheco MD [address] [place], [place] [phone] Social History Tobacco Use Types Packs/Day Years [...] your housing situation today? I have liv bladerrama 08/10/[address] you li [...] Info) Description 04/28/2025 9:00 AM EDT Telemedicine [facility] MEDICINE [address] [place] [address] Francy Melara RN 05/31/2025 2:00 PM EDT Office Visit [facility] OPTOMETRY [address] [place], [place] [phone] Jhonatan, Shanika, OD 230 [place] [address] documented as of this encounter Visit Diagnoses Not on filedocumented in this encounter Additional Health Concerns Assessment Noted Time PHQ-9 Depression Total Score: 0 07/14/20 23 11:16 AM EDT documented as of this encounter Care Teams Insecticide Maker Relationship Specialty Start Date End Date Piedad Pacheco MD [address] [place] [address] PCP - General Family Medicine 10/26/20 documented as of this encounter
--- OUTSIDE RECORDS SUMMARY | 2025-02-28 13:11 | XMS_ITS | Encounter Summary ---
Author Organization [employer] Address 75 [facility] 7t [place] [address] Care Team Providers Care Journeyman Electrician Name Role Phone Piedad Pacheco MD Primary Care Provide r Encounter Details Date Type Department Care Team (Latest Contact Info) Description 07/15/2021 Abstract [facility] CONVERSIONS Dental, Provider, DDS Social History [...] Upcoming Encounters Date Type Department Care Team ( st Contact Info) Description 04/28/2025 9:00 AM EDT Telemedicine [facility] MEDICINE [address] [place] [address] Francy Melara RN 05/31/2025 2:00 PM EDT Office Visit [facility] OPTOMETRY [address] [place] [address] Jhonatan, Shanika, OD [address] [place] [address] documented as of this encounter Visit Diagnoses Not on filedocumented in this encounter Care Teams Journeyman Electrician Relationship Specialty Start Date End Date Piedad Pacheco MD [address] [place] [address] PCP - General Family Medicine 10/26/20 documented as of this encounter
--- OUTSIDE RECORDS SUMMARY | 2025-02-28 13:12 | XMS_ITS | Encounter Summary ---
Author Organization [employer] Address 75 [facility] 7t [place] [address] Care Team Providers Care Salvage Clerk Name Role Phone Piedad Pacheco MD Primary Care Provide r Reason for Visit * Reason Comments Med Refill Encounter Details Date Type Department Care Team ([facility] st Contact Info) Description 09/01/2023 Refill [facility] MEDICINE [address] [place], [place] [phone] Piedad Pacheco MD 230 [place] [address] Restless leg syndrome Social History Tobacco Use [...] EDT Telemedicine [facility] MEDICINE [address] [place] [address] Francy Melara RN 05/31/2025 2:00 PM EDT Office Visit [facility] OPTOMETRY [address] [place] [address] Jhonatan, Shanika, OD [address] [place] [address] documented as of this encounter Visit Diagnoses Diagnosis Restless leg syndrome Restless legs syndrome (RLS) documented in this encounter Additional Health Concerns Assessment Noted Time PHQ-9 Depression Total Score: 0 07/14/20 23 11:16 AM EDT documented as of this encounter Care Teams Salvage Clerk Relationship Specialty Start Date End Date Piedad Pacheco MD [address] [place] [address] PCP - General Family Medicine 10/26/20 documented as of this encounter
--- OUTSIDE RECORDS SUMMARY | 2025-02-28 13:12 | XMS_ITS | Encounter Summary ---
Author Organization [employer] Address [address] [place] [address] Care Team Providers Care Consumer Affairs Manager Name Role Phone Piedad Pacheco MD Primary Care Provide r Reason for Visit * Reason Comments Med Refill Encounter Details Date Type Department Care Team ([facility] st Contact Info) Description 08/27/2023 Refill [facility] [address] [place], [place] [phone] Piedad Pacheco MD [address] [place] [address] Restless leg syndrome Social History Tobacco Use [...] 04/28/2025 9:00 AM EDT Telemedicine [facility] [address] [place] [address] Francy Melara RN 05/31/2025 2:00 PM EDT Office Visit [facility] [address] [place] [address] Jhonatan, Shanika, OD [address] [place] [address] documented as of this encounter Visit Diagnoses Diagnosis Restless leg syndrome Restless legs syndrome (RLS) documented in this encounter Additional Health Concerns Assessment Noted Time PHQ-9 Depression Total Score: 0 07/14/20 23 11:16 AM EDT documented as of this encounter Care Teams Consumer Affairs Manager Relationship Specialty Start Date End Date Piedad Pacheco MD [address] [place] [id number] PCP - General Family Medicine 10/26/20 documented as of this encounter
--- OUTSIDE RECORDS SUMMARY | 2025-02-28 13:12 | XMS_ITS | Encounter Summary ---
Author Organization [employer] Address [address] [facility] [address] [place] [address] Care Team Providers Care Flour Distributor Name Role Phone Piedad Pacheco MD Primary Care Provide r Reason for Visit * Reason Comments Med Refill Encounter Details Date Type Department Care Team ([facility] st Contact Info) Description 09/11/2023 Refill [facility] [address] [place], [place] [phone] Piedad Pacheco MD [address] [place] [address] Restless leg syndrome Social History Tobacco Use [...] status on message below. Contact pt at [phone] documented in this encounter Plan of Treatment Upcoming Encounters Date Type Department Care Team (Late st Contact Info) Description 04/28/2025 9:00 AM EDT Telemedicine [facility] [address] [place] [address] Francy Melara RN 05/31/2025 2:00 PM EDT Office Visit [facility] [address] [place] [address] Jhonatan, Shanika, OD [address] [place] [address] documented as of this encounter Visit Diagnoses Diagnosis Restless leg syndrome Restless legs syndrome (RLS) documented in this encounter Additional Health Concerns Assessment Noted Time PHQ-9 Depression Total Score: 0 07/14/20 23 11:16 AM EDT documented as of this encounter Care Teams Flour Distributor Relationship Specialty Start Date End Date Piedad Pacheco MD [address] [place] [address] PCP - General Family Medicine 10/26/20 documented as of this encounter
--- OUTSIDE RECORDS SUMMARY | 2025-02-28 13:12 | XMS_ITS | Encounter Summary ---
Author Organization [employer] Address [address] [facility] [address] [place] [address] Care Team Providers Care Senior Advisory Name Role Phone Piedad Pacheco MD Primary Care Provide r Reason for Visit * Reason Onset Date Comments PT1 12/12/2024 Encounter Details Date Type Department Care Team ([facility] Contact Info) Description 12/12/2024 Telephone [facility] [address] [place] [address] Piedad Pacheco MD [address] [place] [address] PT1 Social History Tobacco Use Types Packs/Day [...] Description 04/28/2025 9:00 AM EDT Telemedicine [facility] [address] [place], [place] [phone] Francy Melara RN 05/31/2025 2:00 PM EDT Office Visit [facility] [address] [place], [place] [phone] Shanika Israel, OD [address] [place] [address] documented as of this encounter Visit Diagnoses Not on filedocumented in this encounter Additional Health Concerns Assessment Noted Time PHQ-9 Depression Total Score: 0 10/19/19 25 10:23 AM EST documented as of this encounter Care Teams Senior Advisory Relationship Specialty Start Date End Date Piedad Pacheco MD [address] [place] [address] PCP - General Family Medicine 10/26/20 documented as of this encounter
== END 2025-02-28 12:05 | disposition home or self-care (01) ==
LOC: HO.LAB 12:04
PROVIDERS: PCP Internal Medicine
DX: I25.10 Atherosclerotic heart disease of native coronary artery without angina pectoris (principal)
CPT/HCPCS: 36415; 80048

== ENCOUNTER 2025-03-20 13:40 | Outpatient (REF) | payer MEDICARE, SELFPAY ==
--- NOTE | ~2025-03-20 | MR_ITS ---
EXAMINATION: MR LUMBAR SPINE WITHOUT CONTRAST CLINICAL INFORMATION: Radiculopathy, lumbar region. No further clinical information provided. Reading Radiologist review of the the recent lumbar imaging: There has been a question of discitis/osteomyelitis at the L4-5 level, never demonstrating any keshia epidural or extradural abscess on any exam. This is an apparent follow-up to those examinations. 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 Patient states back pain since with difficulty walking and lifting left leg. History of neural stimulator device removed 01/2025. COMPARISON: Numerous prior MRI examinations, most recently 08/18/2024, and dating back to 12/25/2023, with remote exams 04/28/2017. TECHNIQUE: Multiplanar multisequence MR imaging of the lumbar spine was done without IV contrast. Examination was performed on a 1.5 Lisa Siemens magnet, utilizing standard sequences. FINDINGS: CORONAL ALIGNMENT: -There is a mild left convex scoliosis, apex at L3. SAGITTAL ALIGNMENT: - Straightening of the normal lordosis with trace reversal at L1-2. -There is a 2 mm degenerative retrolisthesis of L1 on L2. There is a 2 mm degenerative retrolisthesis of L5 on S1. LUMBOSACRAL JUNCTION: -Normal. There are 5 [id number] lumbar-type vertebral bodies. VERTEBRAL BODIES/BONE MARROW: -No compression deformities or acute fractures identified. -Severe disc loss of height and signal at L4-5 with associated increased edematous type endplate signal, quite similar to 08/18/2024. Edema extends mildly into the L4 and L5 pedicles on the right, and L5 pedicle on the left. Findings most likely relate to stress response. The appearance is without significant change from 08/18/2024. Whether this represents residual sequela of discitis at L4-5, or disc degeneration at L4-5 with prominent edematous type endplate changes is unknown. Again, there is no evidence of intra or extradural abscess at this level. -No compression deformity. Focus of high T2 signal and low T1 signal in the superior endplate of L5 is unchanged, and may represent sequela of prior trauma or infection. -No abnormal infiltrating bone marrow signal. No significant additional endplate changes identified. DISCS: -Severe loss of disc height and signal L4-5, stable. -Moderate loss at L5-S1 with disc vacuum phenomenon, unchanged. -Mild loss spanning L1-L4, unchanged. SPINAL CANAL: -Mild epidural lipomatosis is present spanning L2-3 through the thecal sac termination. This is unchanged. -No abnormal developmental spinal canal abnormality. CONUS MEDULLARIS: -Terminates at L1. Morphology and signal is normal. INTRADURAL NERVE ROOTS: - No abnormal nerve root clumping, or nerve root mass is evident. Axial Disc Space Images: T12-L1: There is no central canal or neural foraminal narrowing. Normal facets. L1-L2: Shallow diffuse disc bulge is present concentrically involving both foraminal zones. Mild hypertrophic degenerative facet changes are present with mild posterior ligamentous thickening/infolding. There is mild central canal narrowing, mild left subarticular recess narrowing, and mild bilateral neural foraminal narrowing. No significant interval change. L2-L3: There is a shallow concentric disc bulge present extending into both foraminal zones where there are superimposed bilateral foraminal disc protrusions. There is a right paracentral annular fissuring. There are mild to moderate hypertrophic degenerative facet changes right greater than left. There is mild dorsal epidural lipomatosis, and mild posterior ligamentous thickening/infolding. There is mild central canal stenosis. There is mild to moderate right subarticular recess stenosis. There is mild to moderate right greater than left neural foraminal stenosis present. No interval change. L3-L4: There are small foraminal disc protrusions bilaterally, mild hypertrophic degenerative facet changes bilaterally, and mild dorsal epidural lipomatosis. There is mild central canal narrowing, mild right greater than left subarticular recess narrowing, where there is contact but no mass effect upon the traversing right L4 nerve roots. There is mild to moderate left greater than right neural foraminal stenosis. No significant interval change. L4-L5: Severe disc degeneration. There is a shallow disc osteophytic ridge complex present extending into the right foraminal zone and lateral to foramen, with a superimposed disc osteophytic protrusion extending into the left foraminal zone and lateral to foramen. There is mild dorsal epidural lipomatosis. There is moderate bilateral hypertrophic degenerative facet change left greater than right, with posterior ligamentous thickening/infolding. Combination of findings is resulting in mild to moderate central canal stenosis, moderate left subarticular recess stenosis, with probable mild impingement upon the traversing left L5 roots. There is mild contact but no definite impingement of the traversing right L5 roots. Moderate to severe bilateral neural foraminal encroachment is present with contact but no definite impingement of the exiting L4 roots. There has been no significant interval change in the appearance nor findings at this level. L5-S1: There is a shallow diffuse disc bulge extending into the right greater than left foraminal zones and lateral to foramen. There is ventral epidural lipomatosis present. There are moderate hypertrophic degenerative facet changes present. With there is mild posterior ligamentous thickening/infolding. Moderate central canal narrowing, with ventral epidural lipomatosis severely encroaching upon the traversing left S1 root within the subarticular recess, and moderately encroaching upon the right S1 root. These findings are unchanged. There is severe bilateral neural foraminal encroachment with likely impingement of the left greater than right exiting L5 nerve roots. No significant interval change in these findings. IMAGED SI JOINTS: -Mild degenerative arthritis bilaterally. PARAVERTEBRAL AND INCLUDED EXTRASPINAL SOFT TISSUES: -No significant prevertebral or paravertebral soft tissue edema is present. Specifically, no prevertebral or paravertebral edema, abscess, or other inflammatory abnormality is noted abutting the L4 or L5 levels. -A right anterior disc osteophytic protrusion is causing mild edema in the right aortoiliac fat (series 5, image 21). -The aorta is nonaneurysmal. -The kidneys appear normal. -The psoas and paraspinal musculature appears normal. MR/MR lumbar spine wo con IMPRESSION: 1. Spondylosis most significant at L4-5, with superimposed epidural lipomatosis as described above. Overall no significant change in these findings which are described in detail in the body of the report. 2. There is no discrete definitive evidence of discitis/osteomyelitis at this time, nor is there any evidence of abscess collection in the intradural, epidural, or extradural compartments. This includes the paraspinal regions. 3. See the body of the report for extensive discussion. Electronically signed by: Mauro Buenrostro MD 03/20/2025 03:00 PM EDT
== END 2025-03-20 13:41 | disposition home or self-care (01) ==
LOC: HO.MRI 13:40
PROVIDERS: PCP Internal Medicine; Visit Provider Nurse Practitioner Family
DX: M54.16 Radiculopathy, lumbar region (principal); M51.369 Other intervertebral disc degeneration, lumbar region without mention of lumbar back pain or lower extremity pain; M54.51 Vertebrogenic low back pain; M47.817 Spondylosis without myelopathy or radiculopathy, lumbosacral region; M54.50 Low back pain, unspecified
CPT/HCPCS: 72148

== ENCOUNTER → 2025-03-20 13:48 | Outpatient (BNV) | payer MEDICARE, SELFPAY | PROVIDERS: PCP Internal Medicine; Visit Provider Radiology Diagnostic Radiology | DX: M51.360 Other intervertebral disc degeneration, lumbar region with discogenic back pain only (principal) | CPT/HCPCS: 72148 ==

== ENCOUNTER 2025-03-23 11:57 | Emergency (ER) | payer MEDICARE, SELFPAY ==
--- NOTE | 2025-03-23 12:13 | ED_ITS ---
HPI - General Adult General Chief complaint: Back Pain/Injury Stated complaint: Pain both legs & back Time Seen by Provider: 03/23/25 14:28 Source: patient Mode of arrival: ambulatory Limitations: no limitations History of Present Illness ED Provider: SYD KERR PA-C HPI narrative: 64-year-old male with pmhx significant for known degenerative changes of the lumbar spine S/P spinal stimulator, prior osteomyelitis of thoracic spine, fibromyalgia, Hypertension, hyperlipidemia, diabetes, heart failure with the EF of 40-50% ECHO 2023, prior CVA with right-sided residual weakness with subsequent gait instability presents to the ED today for evaluation of acute on chronic low back pain and left leg pain since this morning. He reports pain has been intermittent for approximately 3 months. He has followed up with outpatient providers. He had an outpatient lumbar MRI done 3 days ago and has not yet received the results from this scan. He has been taking oxycodone every 6-8 hours as needed which temporarily helps with his discomfort. He denies any new or worsening numbness/tingling/weakness of the lower extremities. Denies any new injury, trauma or falls. Denies any urinary symptoms, saddle anesthesia, bowel or bladder incontinence or retention. He typically uses his mobilized wheelchair to ambulate. Will occasionally use his cane. Reports remote history of cocaine use however denies any history of IV drug use. Denies any history of spinal surgery. Related Data Home Medications ?Medication ?Instructions ?Recorded ?Confirmed atorvastatin 80 mg tablet 80 mg PO DAILY 09/17/21 03/24/25 metformin 500 mg tablet 500 mg PO BID 09/17/21 03/24/25 clopidogrel 75 mg tablet 75 mg PO DAILY 06/14/24 03/23/25 dapagliflozin propanediol 10 mg 10 mg PO DAILY 06/14/24 03/24/25 tablet (Farxiga) docusate sodium 100 mg capsule 100 mg PO DAILY 06/14/24 03/24/25 famotidine 20 mg tablet 20 mg PO BID 06/14/24 03/24/25 tadalafil 20 mg tablet 20 mg PO DAILY PRN Erectile 06/14/24 03/24/25 Dysfunction aspirin 81 mg tablet,delayed 81 mg PO DAILY 07/27/24 03/24/25 release (Adult Aspirin Regimen) ropinirole 2 mg tablet 2 mg PO BEDTIME 07/27/24 03/24/25 zolpidem 10 mg tablet 10 mg PO BEDTIME PRN insomnia 08/16/24 03/24/25 ropinirole 2 mg tablet 4 mg PO DAILY 03/24/25 03/24/25 Previous Rx's ?Medication ?Instructions ?Recorded oxycodone 5 mg tablet 5 mg PO Q6H PRN severe pain #12 08/19/24 tabs lidocaine 5 % topical patch See Rx Instructions topical DAILY 02/21/25 30 days #30 ea Allergies Allergy/AdvReac Type Severity Reaction Status Date / Time No Known Allergies Allergy Verified 03/23/25 12:15 Review of Systems 2 Review of Systems: Constitutional: No fever, chills, fatigue, night sweats, weight changes ENT/Mouth: No ear pain, hearing loss, nasal congestion, sinus pain, rhinorrhea, sore throat Eyes: No eye pain, swelling, redness, vision changes, discharge Cardio: No chest pain, palpitations, GARVIN, orthopnea, peripheral edema Pulm: No SOB, cough, sputum, wheezing, dyspnea, hemoptysis GI: No nausea, vomiting, hematemesis, abdominal pain, diarrhea, constipation, hematochezia, melena : No irregular bleeding, dysuria, frequency, urgency, hesitancy, hematuria, flank pain, urinary flow changes, urinary incontinence or retention MSK: +back pain, No neck pain, joint pain, myalgias Skin: No lesions, rashes Neuro: No weakness, numbness, paresthesias, LOC, dizziness, headache Psych: No anxiety/panic, depression, SI/HI, AH/VH All other systems reviewed and are negative. [facility] Past Medical History Attestation statement: The following information was validated with the patient. Source: old records reviewed and nursing notes reviewed Medical History Osteomyelitis of lumbar spine Osteomyelitis of thoracic spine Heart failure Ischemic stroke Balanitis Osteomyelitis Moderate episode of recurrent major depressive disorder Restless leg syndrome History of cocaine use Essential (primary) hypertension CKD (chronic kidney disease) Hx of exertional chest pain Dry eye Other hyperlipidemia Urinary incontinence Lumbar radiculopathy COPD (chronic obstructive pulmonary disease) Diabetes Elevated alanine aminotransferase (ALT) level History of hepatitis B Hepatitis B immune Obstructive sleep apnea Fibromyalgia Hepatitis A immune Cervical disc disease Metabolic syndrome Cardiovascular event risk Surgical History Status post insertion of spinal cord stimulator Family History Family History Father Prostate cancer Heart problem Mother Heart attack DM2 (diabetes mellitus, type 2) Sister Stomach cancer Brother Alzheimer disease Social History Social History Household Members: Significant Other Housing: House Do you presently have visiting nurse or other home services: No Alcohol intake: current Alcohol intake frequency: does not drink Alcohol type: hard liquor Patient Tobacco Use Status: Current everyday Tobacco user Tobacco use type: Cigarette Cigarettes Per Day: 2 Smoked in Last 30 Days: Yes Use of substances other than those prescribed or required for medical reasons: No Advance Directives: No Advance Directives Information Provided: Yes service: No Physical Exam ED Vital Signs: Vital Signs - 24 hr 03/23/25 22:00 03/24/25 06:15 03/24/25 11:06 Temperature 98.1 F 98.5 F Pulse Rate 65 69 69 Respiratory Rate 12 18 Blood Pressure 133/63 140/74 H 140/74 H Pulse Oximetry 100 97 97 Oxygen Delivery Method Room Air Room Air 03/24/25 14:12 Temperature 98.4 F Pulse Rate 70 Respiratory Rate 16 Blood Pressure 138/61 Pulse Oximetry 98 Oxygen Delivery Method Room Air BMI result Body Mass Index 34.2 vital signs stable, afebrile General: Well appearing, in no acute distress. Skin: Warm, dry, intact. No rashes or lesions. Head: Normocephalic, atraumatic. EENT: Hearing is intact b/l. Conjunctiva clear. Sclera is anicteric. PERRLA. EOM intact. Moist mucous membranes.? Neck: Supple without LAD. Cardiac: Chest wall symmetric. RRR Lungs: Normal respiratory effort without accessory muscle use. CTA bilaterally. No rales, rhonchi, or wheezes.? Abdomen: Soft, non-tender, non-distended. No rebound tenderness or guarding. Positive BS x4. Back: No midline spinous tenderness or step-off deformity. No noted paraspinal muscle tenderness to palpation. Negative straight leg raise bilaterally. Ext: Upper and lower extremities atraumatic, without tenderness, deformity, swelling or erythema. Full ROM throughout. Strength 5/5 throughout. Pulses 2+ equal and bilateral. Neuro: AOx3. Normal speech. strength 5/5 intact throughout. No saddle anesthesia. Sensation intact to light touch. NV intact distally Course Course Course Narrative: RME, this is a rapid medical exam performed by Rafael Bermudez please refer to primary provider for complete H&P- 64-year-old male presents for evaluation of lower back pain. The patient is primarily wheelchair-bound but does get around with a walker/cane at times. He reports worsening lower back pain. He feels though he is unable to get around and take care for himself. He reports living in [place], [place]. He denies any specific injury. He had an MRI 3 days ago on 03/20/2025 that did not show any infectious cause but does show severe degenerative changes in the spine. Plan for basic labs, urinalysis, I will not order any additional imaging at this time. Reevaluation(s) Reevaluation #1: 1525 -- CBC without leukocytosis or left shift. No anemia. H&H stable. Inflammatory markers WNL. Chemistry without acute electrolyte abnormality requiring intervention. BUN slightly elevated to 19 with normal creatinine. Will encourage oral hydration. Liver function WNL. Urine with small amount of leukocyte esterase, 21-50 WBCs, no urine bacteria, 3-5 squamous epithelial cells. Will treat for UTI. Urine culture pending. > I have reviewed lumbar spine obtained on 03/20/2025. No infectious changes. No evidence of diskitis, osteomyelitis. No evidence of epidural abscess. There are chronic degenerative changes consistent with prior MRI > I have discussed workup results with patient. I do not feel as though he meets criteria for admission. He has a appropriate pain control at home. Given his difficulty completing ADLs, we discussed PT/case management consultations. He is agreeable with this. 5 mg oxycodone ordered PRN. Patient states he is full code status. > physician observation initiated at this time. Reevaluation #2: Time: 09:39 Date: 03/24/25 Provider: CRYSTAL Zendejas Patient in physician observation for case management needs. No acute events reported overnight.?home meds started. remains on ceftin. urine culture is still pending. No current issues or complaints. VS stable. Patient is pending placement at facility/pending PT/CM eval. Will continue to monitor. Reevaluation #3: Time: 17:54 Date: 03/24/25 Provider: CRYSTAL Zendejas Physician observation ended at 17:54 Patient has been cleared for discharge by Physical therapy and does not require at home rehab or short-term rehab. He would like to go home. He has not required medical admission to the hospital. He is stable for discharge home with outpatient follow-up as needed Medications Administered Generic Name Dose Route Start Last Admin Trade Name Freq PRN Reason Stop Dose Admin Aspirin 81 mg 03/24/25 11:15 03/24/25 12:04 Aspirin Enteric Coated 81 Mg Tablet.Dr PO 81 mg DAILY BRUNA Administration Atorvastatin Calcium 80 mg 03/24/25 11:30 03/24/25 12:04 Atorvastatin Calcium 80 Mg Tablet PO 80 mg DAILY BRUNA Administration Cefuroxime Axetil 250 mg 03/23/25 21:00 03/24/25 12:01 Cefuroxime Axetil 250 Mg Tablet PO 250 mg BID BRUNA Administration Clopidogrel Bisulfate 75 mg 03/23/25 21:50 03/24/25 12:01 Clopidogrel Bisulfate 75 Mg Tablet PO 75 mg DAILY BRUNA Administration Docusate Sodium 100 mg 03/24/25 11:30 03/24/25 12:04 Docusate Sodium 100 Mg Capsule PO 100 mg DAILY BRUNA Administration Empagliflozin 10 mg 03/24/25 11:30 03/24/25 12:04 Empagliflozin 10 Mg Tablet PO 10 mg DAILY BRUNA Administration Famotidine 20 mg 03/24/25 11:30 03/24/25 12:04 Famotidine 20 Mg Tablet PO 20 mg BID BRUNA Administration Lidocaine 1 patch 03/24/25 11:30 03/24/25 12:04 Lidocaine 4 % Patch Adh..Patch TRANSDERMA 1 patch DAILY BRUNA Administration Metformin HCl 500 mg 03/24/25 11:30 03/24/25 12:04 Metformin Hcl 500 Mg Tablet PO 500 mg BID BRUNA Administration Oxycodone HCl 5 mg 03/23/25 15:24 03/23/25 22:37 Oxycodone Hcl Immed Release 5 Mg Tablet PO 5 mg Q6H PRN Administration Pain, Severe (Pain Scale 7-10) Discontinued Medications Generic Name Dose Route Start Last Admin Trade Name Freq PRN Reason Stop Dose Admin Ropinirole HCl 2 mg 03/23/25 22:00 03/24/25 12:01 Ropinirole Hcl 2 Mg Tablet PO Not Given BID [facility] Medical Decision Making Medical Decision Making [facility] Narrative: 64-year-old male with pmhx significant for known degenerative changes of the lumbar spine S/P spinal stimulator, prior osteomyelitis of thoracic spine, fibromyalgia, Hypertension, hyperlipidemia, diabetes, heart failure with the EF of 40-50% ECHO 2023, prior CVA with right-sided residual weakness with subsequent gait instability presents to the ED today for evaluation of acute on chronic low back pain and left leg pain since this morning. Differential diagnosis includes msk sprain/ strain, sciatica, lumbar radiculopathy, arthritis, DDD, disc herniation, chronic back pain. presentation less consistent w/ renal colic, UTI, nephrolithiasis, hydronephrosis. Unlikely cauda equina, epidural abscess, diskitis/ osteomyelitis, cord compression, guillain barre. Screening labs, UA obtained from triage. I do not feel any repeat imaging is warranted at this time. Will review MRI lumbar spine. Oxycodone ordered for pain control. Differential Diagnosis Differential Diagnoses: The differential diagnosis associated with the presentation includes as above. Admission/Observation Not indicated Lab Data [facility] Lab Attestation statement: I reviewed the patient's lab results. As above 03/23/25 12:56 03/23/25 12:56 Labs: Lab Results 03/23/25 03/23/25 03/23/25 Range/Units 12:56 13:32 15:43 WBC 7.6 (4.8-10.8) X10*3/uL RBC 5.44 (4.60-5.80) X10*6/uL Hgb 16.5 (14.0-18.0) g/dl Hct 48.3 (42.0-52.0) % MCV 88.8 (80.0-98.0) fL MCH 30.3 (27.0-33.0) pg MCHC 34.2 (31.0-36.0) g/dl RDW 12.2 (11.0-16.0) % Plt Count 153 L (160-400) X10*3/uL MPV 9.9 (9.4-12.4) fL Immature Gran % (Auto) 0.3 (0.0-0.4) % Neut % (Auto) 67.3 (45-73) % Lymph % (Auto) 25.7 (20-40) % Treasure % (Auto) 5.4 (2-11) % Eos % (Auto) 0.8 (0-4) % Baso % (Auto) 0.5 (0-2) % Lymph # (Auto) 2.0 (1.2-4.9) X10*3/uL [place] # (Auto) 0.4 (0.1-1.2) X10*3/uL Eos # (Auto) 0.1 (0.0-0.4) X10*3/uL Baso # (Auto) 0.0 (0.0-0.2) X10*3/uL Abs Immat Gran (auto) 0.02 (0.00-0.03) X10*3/uL Absolute Neuts (auto) 5.1 (2.0-8.3) x10*3/uL Absolute Nucleated RBC 0.000 (0.0-0.012) X10*3/uL Nucleated RBC % (auto) 0.0 (0.0-0.2) /100WBC ESR 2 (0-15) MM/HR Sodium 140 (135-145) mmol/L Potassium 3.9 (3.3-5.1) mmol/L Chloride 109 H (96-108) mmol/L Carbon Dioxide 25 (22-29) mmol/L Anion Gap 10 L (12-20) BUN 19 H (9-16) mg/dL Creatinine 1.07 (0.5-1.4) mg/dL Estim Creat Clear Calc 81.8 Estimated GFR > 60 Random Glucose 108 (60-115) mg/dL Calcium 9.1 (8.4-10.2) mg/dL Total Bilirubin 0.7 (0.0-1.0) mg/dL AST 26 (5-37) U/L ALT 16 (0-40) U/L Alkaline Phosphatase 90 (39-117) U/L C-Reactive Protein 0.11 (< or = 0.50) mg/dL Total Protein 7.3 (6.5-8.0) g/dL Albumin 4.5 (3.5-5.0) g/dL Urine Color Yellow Urine Appearance Clear Urine pH 5.5 (5.0-9.0) Ur Specific [place] >= 1.030 H (1.005-1.025) Urine Protein Trace (Neg-Trace) mg/dL Urine Glucose (UA) >=1000 H (Negative) mg/dL Urine Ketones Trace (Negative) mg/dL Urine Blood Negative (Negative) Urine Nitrite Negative (Negative) Ur Leukocyte Esterase Small (1+) H (Negative) Urine RBC 0-2 (0-2) /HPF Urine WBC 21-50 H (0-5) /HPF Ur Squamous Epith Cells 3-5 (0-2) /HPF Urine Bacteria None Seen (None Seen) Hyaline Casts 0-2 (0-2) /LPF COVID-19 (RAMON) Negative (Negative) COVID-19 Clin Com See Note Independent Interpretation I performed an independent interpretation of an: MRI Interpretation: MRI lumbar spine obtained on 03/17/2025 without noted abscess Radiology Impression Discussion of test interpretation with radiology: I have reviewed the radiologist's reading. Radiologist Impression: Procedure(s): MR lumbar spine wo [facility] Accession Number(s): [id number] cc: Piedad Pacheco MD; Rachel Graf~ EXAMINATION: MR LUMBAR SPINE WITHOUT CONTRAST CLINICAL INFORMATION: Radiculopathy, lumbar region. No further clinical information provided. Reading Radiologist review of the the recent lumbar imaging: There has been a question of discitis/osteomyelitis at the L4-5 level, never demonstrating any keshia epidural or extradural abscess on any exam. This is an apparent follow-up to those examinations. 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 Patient states back pain since with difficulty walking and lifting left leg. History of neural stimulator device removed 01/2025. COMPARISON: Numerous prior MRI examinations, most recently 08/18/2024, and dating back to 12/25/2023, with remote exams 04/28/2017. TECHNIQUE: Multiplanar multisequence MR imaging of the lumbar spine was done without IV contrast. Examination was performed on a 1.5 Lisa Siemens magnet, utilizing standard sequences. FINDINGS: CORONAL ALIGNMENT: -There is a mild left convex scoliosis, apex at L3. SAGITTAL ALIGNMENT: - Straightening of the normal lordosis with trace reversal at L1-2. -There is a 2 mm degenerative retrolisthesis of L1 on L2. There is a 2 mm degenerative retrolisthesis of L5 on S1. LUMBOSACRAL JUNCTION: -Normal. There are 5 [id number] lumbar-type vertebral bodies. VERTEBRAL BODIES/BONE MARROW: -No compression deformities or acute fractures identified. -Severe disc loss of height and signal at L4-5 with associated increased edematous type endplate signal, quite similar to 08/18/2024. Edema extends mildly into the L4 and L5 pedicles on the right, and L5 pedicle on the left. Findings most likely relate to stress response. The appearance is without significant change from 08/18/2024. Whether this represents residual sequela of discitis at L4-5, or disc degeneration at L4-5 with prominent edematous type endplate changes is unknown. Again, there is no evidence of intra or extradural abscess at this level. -No compression deformity. Focus of high T2 signal and low T1 signal in the superior endplate of L5 is unchanged, and may represent sequela of prior trauma or infection. -No abnormal infiltrating bone marrow signal. No significant additional endplate changes identified. DISCS: -Severe loss of disc height and signal L4-5, stable. -Moderate loss at L5-S1 with disc vacuum phenomenon, unchanged. -Mild loss spanning L1-L4, unchanged. SPINAL CANAL: -Mild epidural lipomatosis is present spanning L2-3 through the thecal sac termination. This is unchanged. -No abnormal developmental spinal canal abnormality. CONUS MEDULLARIS: -Terminates at L1. Morphology and signal is normal. INTRADURAL NERVE ROOTS: - No abnormal nerve root clumping, or nerve root mass is evident. Axial Disc Space Images: T12-L1: There is no central canal or neural foraminal narrowing. Normal facets. L1-L2: Shallow diffuse disc bulge is present concentrically involving both foraminal zones. Mild hypertrophic degenerative facet changes are present with mild posterior ligamentous thickening/infolding. There is mild central canal narrowing, mild left subarticular recess narrowing, and mild bilateral neural foraminal narrowing. No significant interval change. L2-L3: There is a shallow concentric disc bulge present extending into both foraminal zones where there are superimposed bilateral foraminal disc protrusions. There is a right paracentral annular fissuring. There are mild to moderate hypertrophic degenerative facet changes right greater than left. There is mild dorsal epidural lipomatosis, and mild posterior ligamentous thickening/infolding. There is mild central canal stenosis. There is mild to moderate right subarticular recess stenosis. There is mild to moderate right greater than left neural foraminal stenosis present. No interval change. L3-L4: There are small foraminal disc protrusions bilaterally, mild hypertrophic degenerative facet changes bilaterally, and mild dorsal epidural lipomatosis. There is mild central canal narrowing, mild right greater than left subarticular recess narrowing, where there is contact but no mass effect upon the traversing right L4 nerve roots. There is mild to moderate left greater than right neural foraminal stenosis. No significant interval change. L4-L5: Severe disc degeneration. There is a shallow disc osteophytic ridge complex present extending into the right foraminal zone and lateral to foramen, with a superimposed disc osteophytic protrusion extending into the left foraminal zone and lateral to foramen. There is mild dorsal epidural lipomatosis. There is moderate bilateral hypertrophic degenerative facet change left greater than right, with posterior ligamentous thickening/infolding. Combination of findings is resulting in mild to moderate central canal stenosis, moderate left subarticular recess stenosis, with probable mild impingement upon the traversing left L5 roots. There is mild contact but no definite impingement of the traversing right L5 roots. Moderate to severe bilateral neural foraminal encroachment is present with contact but no definite impingement of the exiting L4 roots. There has been no significant interval change in the appearance nor findings at this level. L5-S1: There is a shallow diffuse disc bulge extending into the right greater than left foraminal zones and lateral to foramen. There is ventral epidural lipomatosis present. There are moderate hypertrophic degenerative facet changes present. With there is mild posterior ligamentous thickening/infolding. Moderate central canal narrowing, with ventral epidural lipomatosis severely encroaching upon the traversing left S1 root within the subarticular recess, and moderately encroaching upon the right S1 root. These findings are unchanged. There is severe bilateral neural foraminal encroachment with likely impingement of the left greater than right exiting L5 nerve roots. No significant interval change in these findings. IMAGED SI JOINTS: -Mild degenerative arthritis bilaterally. PARAVERTEBRAL AND INCLUDED EXTRASPINAL SOFT TISSUES: -No significant prevertebral or paravertebral soft tissue edema is present. Specifically, no prevertebral or paravertebral edema, abscess, or other inflammatory abnormality is noted abutting the L4 or L5 levels. -A right anterior disc osteophytic protrusion is causing mild edema in the right aortoiliac fat (series 5, image 21). -The aorta is nonaneurysmal. -The kidneys appear normal. -The psoas and paraspinal musculature appears normal. MR/MR lumbar spine wo con IMPRESSION: 1. Spondylosis most significant at L4-5, with superimposed epidural lipomatosis as described above. Overall no significant change in these findings which are described in detail in the body of the report. 2. There is no discrete definitive evidence of discitis/osteomyelitis at this time, nor is there any evidence of abscess collection in the intradural, epidural, or extradural compartments. This includes the paraspinal regions. 3. See the body of the report for extensive discussion. External Record Review External record reviewed: Inpatient record Prescription Management I considered prescription management with: Pain Medication Chronic Conditions Patient?s care impacted by: Other (chronic back pain) Social Determinants Patient?s care significantly limited by Social Determinants of Health including: Other Social Determinant of Health Critical Care Time Critical Care Time Critical Care Time: No Discharge Plan Discharge Clinical Impression: Left lumbar radiculopathy Patient Disposition: Home, Self-Care Instructions: Lumbar Radiculopathy (ED) Additional Instructions: Follow-up with your doctor as soon as possible MR/MR lumbar spine wo con IMPRESSION: 1. Spondylosis most significant at L4-5, with superimposed epidural lipomatosis as described above. Overall no significant change in these findings which are described in detail in the body of the report.2. There is no discrete definitive evidence of discitis/osteomyelitis at this time, nor is there any evidence of abscess collection in the intradural, epidural, or extradural compartments. This includes the paraspinal regions. 3. See the body of the report for extensive discussion. Prescriptions: No Action zolpidem 10 mg tablet 10 mg PO BEDTIME PRN (Reason: insomnia) oxycodone 5 mg tablet 5 mg PO Q6H PRN (Reason: severe pain) Qty: 12 0RF ropinirole 2 mg tablet 4 mg PO DAILY atorvastatin 80 mg tablet 80 mg PO DAILY metformin 500 mg tablet 500 mg PO BID ropinirole 2 mg tablet 2 mg PO BEDTIME famotidine 20 mg tablet 20 mg PO BID dapagliflozin propanediol [Farxiga] 10 mg tablet 10 mg PO DAILY docusate sodium 100 mg capsule 100 mg PO DAILY clopidogrel 75 mg tablet 75 mg PO DAILY tadalafil 20 mg tablet 20 mg PO DAILY PRN (Reason: Erectile Dysfunction) aspirin [Adult Aspirin Regimen] 81 mg tablet,delayed release (DR/EC) 81 mg PO DAILY lidocaine 5 % adhesive patch,medicated See Rx Instructions topical DAILY 30 Days Qty: 30 0RF Rx Instructions: leave on most painful area for up to 12 hrs topically daily; Print Language: Nauruan
[2025-03-23 12:14] VITALS: BP 124/85; PULSE 66; RESP 20; TEMP 37; O2SAT 95; BMI 34.2
[2025-03-23 12:59] LABS: MANUAL DIFF FLAG NO
[2025-03-23 13:01] LABS: Basophils Percent Auto 0.5 % (0-2); Eosinophils Absolute Auto 0.1 X10*3/uL (0.0-0.4); Eosinophils Percent Auto 0.8 % (0-4); Hematocrit 48.3 % (42.0-52.0); Hemoglobin 16.5 g/dl (14.0-18.0); Imm Gran Abs Auto 0.02 X10*3/uL (0.00-0.03); Imm Gran Pct Auto 0.3 % (0.0-0.4); Lymphocytes Percent Auto 25.7 % (20-40); Mean Corpuscular HGB Conc 34.2 g/dl (31.0-36.0); Mean Corpuscular Hemoglobin 30.3 pg (27.0-33.0); Mean Corpuscular Volume 88.8 fL (80.0-98.0); Mean Platelet Volume 9.9 fL (9.4-12.4); Monocytes Absolute Auto 0.4 X10*3/uL (0.1-1.2); Monocytes Percent Auto 5.4 % (2-11); Neutrophils Absolute Auto 5.1 x10*3/uL (2.0-8.3); Neutrophils Percent Auto 67.3 % (45-73); Platelet Count 153 X10*3/uL (160-400); Red Blood Count 5.44 X10*6/uL (4.60-5.80); Red Cell Distribution Width 12.2 % (11.0-16.0); White Blood Count 7.6 X10*3/uL (4.8-10.8)
[2025-03-23 13:21] LABS: Alanine Aminotransferase 16 U/L (0-40); Albumin Level 4.5 g/dL (3.5-5.0); Alkaline Phosphatase 90 U/L (39-117); Anion Gap 10 (12-20); Aspartate Amino Transferase 26 U/L (5-37); Bilirubin Total 0.7 mg/dL (0.0-1.0); Blood Urea Nitrogen 19 mg/dL (9-16); C Reactive Protein 0.11 mg/dL (< or = 0.50); Calcium 9.1 mg/dL (8.4-10.2); Carbon Dioxide 25 mmol/L (22-29); Chloride 109 mmol/L (96-108); Creatinine Clr Calc Pharmacy 81.8; Estimated Glomerular Filt Rate > 60; Glucose Random 108 mg/dL (60-115); Potassium 3.9 mmol/L (3.3-5.1); Sodium 140 mmol/L (135-145); Total Protein 7.3 g/dL (6.5-8.0)
[2025-03-23 13:40] LABS: Erythrocyte Sedimentation Rate 2 MM/HR (0-15)
[2025-03-23 13:43] LABS: Appearance Urine Clear; Color Urine Yellow; Glucose Urine UA >=1000 mg/dL (Negative); Leukocyte Esterase Urine Small (1+) (Negative); Nitrite Urine Negative (Negative); PH 5.5 (5.0-9.0); Specific Gravity - Urine >= 1.030 (1.005-1.025); UMIC TRIGGER UACC YES; Urine Blood Negative (Negative); Urine Ketones Trace mg/dL (Negative); Urine Protein Trace mg/dL (Neg-Trace)
[2025-03-23 13:45] LABS: Bacteria Urine None Seen (None Seen); Hyaline Casts Urine 0-2 /LPF (0-2); RBC Urine 0-2 /HPF (0-2); UACC Culture Trigger YES; WBC Urine 21-50 /HPF (0-5)
[2025-03-23 14:38] VITALS: BP 128/80; PULSE 85; RESP 18; TEMP 36.9; O2SAT 95
[2025-03-23] MEDS: oxyCODONE HCl Immed Release 5 MG TABLET PO ×2 (16:00→22:37)
[2025-03-23 16:01] LABS: COVID-19 Test Negative (Negative); IDNOW Serial# 58CA691E
[2025-03-23 16:51] VITALS: BP 123/62; PULSE 75; RESP 14; TEMP 36.8; O2SAT 93
--- OUTSIDE RECORDS SUMMARY | 2025-03-23 17:02 | XMS_ITS | Encounter Summary ---
Author Organization [employer] Address [address] [address] [address] [place] [address] Care Team Providers Care Engineer First Assistant Name Role Phone Piedad Pacheco MD Primary Care Provide r Encounter Details Date Type Department Care Team ([facility] st Contact Info) Description 11/22/2024 Telephone [facility] MEDICINE [address], [place] [phone] Piedad Pacheco MD [address] [place], [place] [phone] Social History Tobacco Use Types Packs/Day Years [...] Info) Description 04/28/2025 9:00 AM EDT Telemedicine [facility] MEDICINE [address] [place] [address] Francy Melara RN 05/31/2025 2:00 PM EDT Office Visit [facility] OPTOMETRY [address] [place] [address] Jhonatan, Shanika, OD [address] [place] [address] documented as of this encounter Visit Diagnoses Not on filedocumented in this encounter Additional Health Concerns Assessment Noted Time PHQ-9 Depression Total Score: 0 10/19/19 25 10:23 AM EST documented as of this encounter Care Teams Engineer First Assistant Relationship Specialty Start Date End Date Piedad Pacheco MD [address] [place] [address] PCP - General Family Medicine 10/26/20 documented as of this encounter
--- NOTE | 2025-03-23 17:28 | PC.NURSE ---
Report called to [facility] in ED Overflow; reports no change in pain with PO meds gv for back/leg pain; provider made aware; pt transported to overflow with all belongings, including motorized mobility scooter; care relinquished at this time
--- NOTE | 2025-03-23 17:35 | PC.NURSE ---
Addendum entered by Ewa Godinez RN 03/23/25 17:36: Patient is a 64 year old male with a pmhx significant for known degenerative changes of the lumbar spine S/P spinal stimulator, prior osteomyelitis of thoracic spine, fibromyalgia, Hypertension, hyperlipidemia, diabetes, heart failure with the EF of 40-50% ECHO 2023, prior CVA with right-sided residual weakness with subsequent gait instability who presents for low back and left leg pain worsening since this morning. He took oxycodone this morning, but this did not help his pain. He reports occasional urinary frequency and urinary incontinence, but says this has been a chronic issue for him. Patient moved to overflow. Alert and oriented. Lungs clear bilat. Respirations even and non-labored. Abdomen soft, distended, non-tender with positive bowel sounds. Positive pedal pulses with no edema. Able to ambulate to the bathroom utilizing a cane with a steady gait. Pending STR Original Note: Medical History Osteomyelitis of lumbar spine Osteomyelitis of thoracic spine Heart failure Ischemic stroke Balanitis Osteomyelitis Moderate episode of recurrent major depressive disorder Restless leg syndrome History of cocaine use Essential (primary) hypertension CKD (chronic kidney disease) Hx of exertional chest pain Dry eye Other hyperlipidemia Urinary incontinence Lumbar radiculopathy COPD (chronic obstructive pulmonary disease) Diabetes Elevated alanine aminotransferase (ALT) level History of hepatitis B Hepatitis B immune Obstructive sleep apnea Fibromyalgia Hepatitis A immune Cervical disc disease Metabolic syndrome Cardiovascular event risk
[2025-03-23] MEDS: cefuroxime axetiL 250 MG TABLET PO (20:45)
--- NOTE | 2025-03-23 21:32 | MHC.CM.ED ---
CM met with patient. Per patient, he has been having difficulty with his ADL's due to back pain. Hx CVA with R sided deficits. Uses scooter. and cane. Lives with his . Has no home services. HCP reviewed, completed and signed. Copies given Uploaded into [employer] and [facility] [employer]. HCP/ Yoon Lynn ([phone]). Pt is willing to have a PT evaluation in the AM, but is unsure about STR, may want home care. STR referrals made. Pt is aware that he can decline STR is recommended. 22 referrals made locally. Pt has [facility] Medicare. CM will follow for discharge planning.
[2025-03-23 22:00] VITALS: BP 133/63; PULSE 65; RESP 12; TEMP 36.7; O2SAT 100
[2025-03-23] MEDS: Clopidogrel Bisulfate 75 MG TABLET PO (22:37)
[2025-03-23] MEDS: rOPINIRole HCL 2 MG TABLET PO (22:37)
--- NOTE | 2025-03-24 01:29 | PC.NURSE ---
Assumed care of patient at 1900. Administered hs medications, pt c/o back and leg pain. Oxycodonet given with good effect. Patient walks to bathroom with standby assist. Safety precautions in place . Bed alarm on , call pollard within reach.
[2025-03-24 06:15] VITALS: BP 140/74; PULSE 69; RESP 18; TEMP 36.9; O2SAT 97
--- NOTE | 2025-03-24 09:15 | PC.NURSE ---
Med rec not completed by previous shifts- completed by this RN, verified with pt pharmacy and pt. Pharmacy notified and at bedside to verify pt medications. Active medications not loaded in pyxis- pharmacy notified, will bring up medications.
--- NOTE | 2025-03-24 09:49 | PC.NURSE ---
Physical therapy at bedside for assessment.
[2025-03-24 11:06] VITALS: BP 140/74; PULSE 69; O2SAT 97
--- NOTE | 2025-03-24 11:24 | PHA.MEDREC ---
Pharmacy Consult ? Medication Reconciliation Pharmacy has reviewed the medication reconciliation done by nursing. Also spoke to patient and updated some meds. Questioned patient about clopidogrel since it hasn't been filled since December 2024 for 30 day supply and he said he forgets to take it. Per patient, he takes docusate 100 mg daily, oxycodone 5 mg q6h prn pain, ropinirole 4 mg in the morning and 2 mg in the evening and tadalafil is prn ED. Last dose of medications was yesterday 03/23/25 morning.
[2025-03-24] MEDS: cefuroxime axetiL 250 MG TABLET PO (12:01)
[2025-03-24] MEDS: Clopidogrel Bisulfate 75 MG TABLET PO (12:01)
[2025-03-24] MEDS: Docusate Sodium 100 MG CAPSULE PO (12:04)
[2025-03-24] MEDS: Famotidine 20 MG TABLET PO (12:04)
[2025-03-24] MEDS: Aspirin Enteric Coated 81 MG TABLET.DR PO (12:04)
[2025-03-24] MEDS: Empagliflozin 10 MG TABLET PO (12:04)
[2025-03-24] MEDS: Atorvastatin Calcium 80 MG TABLET PO (12:04)
[2025-03-24] MEDS: Lidocaine 4 % Patch ADH..PATCH 1 PATCH TRANSDERMA (12:04)
[2025-03-24] MEDS: metFORMIN HCl 500 MG TABLET PO (12:04)
--- NOTE | 2025-03-24 13:17 | MHC.CM.ED ---
Patient remains in ER overflow. Physical therapy eval completed. Home PT vs outpatient PT rec. Met with patient in regards to discharge planning. Patient would prefer outpatient physical therapy. Patient's PCP's office will be asked to arrange outpatient physical therapy. Patient states his will be able to transport him home. Attempted to reach Yoon via telephone at [phone]. Left message requesting return telephone call. Ekta JUNE and Mari ROJAS aware.
[2025-03-24 14:12] VITALS: BP 138/61; PULSE 70; RESP 16; TEMP 36.9; O2SAT 98
[2025-03-24 18:10] VITALS: BP 138/61; PULSE 70; RESP 16; TEMP 36.9; O2SAT 98
--- NOTE | 2025-03-24 18:53 | MHC.CM.ED ---
PT does not recommend PT. Patient can follow up with PCP regarding outpatient PT. Pt able to ambulate short distances and uses his scooter. This CM called his , Yoon Lynn twice, phone went immediately to voice mail. CM verified that correct number has been used. Pt states she is probably angry with him. He did not elaborate. Pt attempted to call his brother, who lives in [place] in [place], however, he is at work and cannot transport him home. Pt states he wants to be discharged and will use his scooter and go to his brothers home. CM encouraged him to wait for transport. Pt tells CM he brought himself to the hospital and he can leave on his own. CM spoke with Provider. A&Ox3. Pt will be discharged home Primary RN aware.
== END 2025-03-24 18:11 | disposition home or self-care (01) ==
PROVIDERS: Physician Assistant; Physician Assistant Medical; Emergency Provider Emergency Medicine; PCP Internal Medicine
DX: M54.16 Radiculopathy, lumbar region (principal); M79.604 Pain in right leg; M79.605 Pain in left leg; R26.81 Unsteadiness on feet; Z79.899 Other long term (current) drug therapy; Z11.52 Encounter for screening for COVID-19
CPT/HCPCS: 36415; 80053; 81001; 85025; 85652; 86140; 87086; 87635; 97161; 99284

== ENCOUNTER 2025-04-13 12:59 | Outpatient (AMB) | payer MEDICARE, SELFPAY ==
--- NOTE | 2025-04-13 13:02 | MHC.OFFVIS ---
Vital Signs 04/13/25 13:05 Height 5 ft 6 in Weight 225 lb BMI 36.3 BP 136/70 Blood Pressure Location Rt brachial Position Sitting Pulse 91 Pulse Source Pulse Oximeter Pulse Oximetry (%) 96 Oxygen Delivery Method Room Air Intake Visit Reasons: MRI FOLLOW UP Intake Note: Pain today 05/21 Acid Bath Mixer Required: No Accompanied by: Self / Same As Patient Allergies No Known Allergies Allergy (Verified 04/13/25 13:06) HPI Comments Details: The patient is a 65-year-old male presenting with chronic lower back pain radiating to the left leg. He arrives via motorized wheelchair due right-sided residual weakness due to prior CVA with subsequent gait instability and chronic low back pain. The pain has persisted for approximately 3 years, associated with severe disc degeneration, spondylosis and spinal stenosis and no discrete definitive evidence of discitis/osteomyelitis, as noted in MRI findings below. The pain extends from the lower back into the buttock, down into left lateral and posterior leg and down to the calf. He was seen for acute on chronic left sided radiculopathy at ER on 03/23/25. The patient has a history of spinal cord stimulator removal last year, initially placed to manage the pain. Previous interventions included injections at [facility], providing some relief, though the patient reports ongoing pain. Pain is experienced with both forward and backward bending, and a positive straight leg raise test on the left in L5-S1 and diffuse on the right was noted during examination. Denies any bladder or bowel dysfunction or saddle anesthesia. The patient also has a history of diabetes mellitus, managed with oral medications, with a recent random glucose level of 108 mg/dL. Dietary habits are not strictly controlled, potentially impacting glucose management. Additionally, the patient has a history of stroke, for which Plavix is prescribed. Denies any recent cough, cold, infection, fever or any significant changes in medical history since last office visit. Denies any changes to medications, medical history or recent hospitalizations except recent ER visit for increased back pain. PRIOR: The patient is a 64-year-old male presenting with exacerbation of back and left leg pain following the removal of a spinal cord stimulator conducted by Dr. Benites a month ago at [facility]. His back pain, initially explored in June 2024 due to concerns of osteomyelitis, remained relatively stable but has caused increasing difficulty in ambulation. Previous blood cultures and ID evaluations ruled out infectious etiology. Recent pain primarily affects the left leg, and while he describes an overall reduction in back pain post-stimulator removal, left leg pain persists and interferes severely with mobility. He utilized motorized Picatchaooter for transportation and mobility. He is able to walk very short distances with antalgic and slow gait. There is a noted history of a cerebrovascular accident occurring approximately one year ago, contributing to residual right-sided weakness, although the patient reports gradual improvement with PT and rehabilitation. He is concomitantly managing multiple chronic health issues, including fibromyalgia, obesity, sleep apnea, chronic kidney disease, and restless leg syndrome. Patient is currently on Plavix. Past interventions, inclusive of physical therapy, provided minimal relief. The patient is under consideration for another MRI given the persistent shift in symptom patterns. - Onset: Persistent with exacerbation over the recent months. - Quality: Described as persistent pain, radiating to the left leg. - Location: Predominantly lower back with radiation to the left leg. - Activities Interfered: Significant impact on ambulation, particularly challenging when bending. - Exacerbating Factors: Walking, bending, changing positions, flexing forward, movements. - Alleviating Factors: Limited alleviation noted post-spinal stimulator removal. - Affect: Chronic pain substantially impacting mobility and comfort, with minimal resolution post-stimulator removal. - Analgesia: Currently utilizing Oxycodone; aims to manage pain but reports disabling left leg discomfort. - Adverse Effects: No specific adverse effects from current treatment reported. - Activities of Daily Living: Severely impacted at times, with difficulty maintaining ambulatory functions. - Aberrant Drug Related Behaviors: None reported. PRIOR: Patient is a pleasant 64-year-old male with history of lumbar degenerative disc disease, lumbar spinal stenosis, cervical disc disorder, recent Group B strep osteomyelitis, recent ischemic stroke without hemorrhage with residual right-sided weakness, fibromyalgia, history of cocaine use, lumbar radiculopathy, restless legs syndrome, diabetes, RADHA, [employer] spinal cord stimulator at [facility] (Dr. Benites, [facility]), presents today for initial evaluation of worsening low back pain with left-sided radiculopathy. Patient arrived through motorized Picatchaooter and uses cane to transfer to the chair. He is able to ambulate with a slow, antalgic and limping gait. Patient reports he has not used or charged his SCS device until yesterday. He reports it is working but not providing him significant pain relief for low back and left leg pain. Patient denies reaching out to [employer] clearance representative to check on his device. Patient was seen by DESI Schroeder once in December this year for osteomyelitis without follow up. Pain is constant, worse during the day and is rated at 10/10. Back pain is localized to his left side of lower lumbar spine with radiation into his left buttock and left groin and into his left lower extremity posteriorly with associated heaviness, numbness, burning and tingling. Pain affects his ADLs, mobility, mood, sleep, and social interactions. Patient was started on oxycodone by his PCP for chronic low back pain. Patient reports he tried gabapentin in the past with minimal effect. He recently completed [facility] rehab in April where he progressed with PT, OT and speech therapy s/p stroke and has regular follow ups with Neurology, Cardiology and PCP. He takes Plavix and aspirin. Patient reports he is considering to remove spinal cord stimulator but has not reached out to Dr. Benites as of yet. He reports he was offered back surgery in the past few years but declined it. Patient reports his back pain has been progressively worsening and debilitating that he is now considering surgical option. Patient is willing to follow-up with [employer] rep in our office to interrogate his device and reprogrammed it. Patient denies any fever or chills, abdominal pain, dyspnea, chest pain, bowel dysfunction or saddle anesthesia. Patient reports occasional urinary incontinence and is wearing depends. Most recent spine MRI imaging was reviewed with patient today and is noted below. Location: Lower back radiates down left buttock, groin and left lower extremity Duration: Chronic pain for over 5 years Characteristics of symptom or complaint: Aching, sharp, shooting, burning, stabbing, numbness, tingling Aggravating or associated factors: Any movement, walking, bending forward Relieving factors: Resting, oxycodone, heat, topical applications Treatment: [employer]tronic lumbar SCS, physical therapy, motorized scooter/cane [facility] Medical History Osteomyelitis of lumbar spine Osteomyelitis of thoracic spine Heart failure Ischemic stroke Balanitis Osteomyelitis Moderate episode of recurrent major depressive disorder Restless leg syndrome History of cocaine use Essential (primary) hypertension CKD (chronic kidney disease) Hx of exertional chest pain Dry eye Other hyperlipidemia Urinary incontinence Lumbar radiculopathy COPD (chronic obstructive pulmonary disease) Diabetes Elevated alanine aminotransferase (ALT) level History of hepatitis B Hepatitis B immune Obstructive sleep apnea Fibromyalgia Hepatitis A immune Cervical disc disease Metabolic syndrome Cardiovascular event risk Surgical History Status post insertion of spinal cord stimulator Family History Father Prostate cancer Heart problem Mother Heart attack DM2 (diabetes mellitus, type 2) Sister Stomach cancer Brother Alzheimer disease Social History Household Members: Significant Other Housing: House Do you presently have visiting nurse or other home services: No Alcohol intake: current Alcohol intake frequency: does not drink Alcohol type: hard liquor Patient Tobacco Use Status: Current everyday Tobacco user Tobacco use type: Cigarette Cigarettes Per Day: 2 service: No Review of Systems Const All systems reviewed & are unremarkable except as noted in HPI and below Physical Exam Vital Signs: Last Vital Signs Pulse 91 04/13/25 13:05 BP 136/70 04/13/25 13:05 Pulse Ox 96 04/13/25 13:05 Oxygen Delivery Method Room Air 04/13/25 13:05 BMI result Body Mass Index 36.3 General: Appears afebrile. Alert and oriented. Mood and affect appropriate. Follows and participates in conversation appropriately. Respiratory effort is unlabored. No cough. Able to transition from sit to stand with assistance. Right sided residual weakness h/o prior CVA. Arrived via motorized wheelchair. General: Yes no CVA tenderness Back/Spine/Pelvis Other: Limited lumbar ROM due to pain. Lumbar extension reproduces mild to moderate pain, lumbar flexion and bending reproduces moderate-severe pain. No midline tenderness to palpation in the thoracic or lumbar regions. Demonstrates 4/5 right and 5/5 left strength of quadriceps bilaterally as well as flexion/dorsiflexion of bilateral feet against resistance. 2+ pedal pulses bilaterally. Straight leg rise with dorsiflexion positive on the left in L5-S1 distribution. Diminished patellar and achilles reflexes bilaterally. Facet loading test positive bilaterally. Limited Kervin?s and Stinchfield tests are positive bilaterally, left>right. No groin pain with I/E hip rotations. Back: no CVA tenderness Cervical Spine: cervical muscular tenderness, pain with cervical ROM and No Cervical spine tenderness Thoracic/Lumbar Spine: thoracic and lumbar spine normal to inspection, Thoracic/lumbar spine scar(s) (well healed incisions x2 s/p recent SCS removal), Lasegue's sign positive (diffuse on the right, localized in L5-S1 distribution on the left), pain with thoraco-lumbar ROM, paraspinal muscle tenderness, thoraco-lumbar ROM limited, No thoracic spinal tenderness and lumbar spinal tenderness (L4-S1) Pelvis: buttock tenderness on the left Sacroiliac joints: bilaterally (left>right) Results Reviewed Results Reviewed: MR LUMBAR SPINE WITHOUT CONTRAST 03/20/25 CLINICAL INFORMATION: Radiculopathy, lumbar region. No further clinical information provided. Reading Radiologist review of the the recent lumbar imaging: There has been a question of discitis/osteomyelitis at the L4-5 level, never demonstrating any keshia epidural or extradural abscess on any exam. This is an apparent follow-up to those examinations. 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 Patient states back pain since with difficulty walking and lifting left leg. History of neural stimulator device removed 01/2025. COMPARISON: Numerous prior MRI examinations, most recently 08/18/2024, and dating back to 12/25/2023, with remote exams 04/28/2017. TECHNIQUE: Multiplanar multisequence MR imaging of the lumbar spine was done without IV contrast. Examination was performed on a 1.5 Lisa Siemens magnet, utilizing standard sequences. FINDINGS: CORONAL ALIGNMENT: -There is a mild left convex scoliosis, apex at L3. SAGITTAL ALIGNMENT: - Straightening of the normal lordosis with trace reversal at L1-2. -There is a 2 mm degenerative retrolisthesis of L1 on L2. There is a 2 mm degenerative retrolisthesis of L5 on S1. LUMBOSACRAL JUNCTION: -Normal. There are 5 [id number] lumbar-type vertebral bodies. VERTEBRAL BODIES/BONE MARROW: -No compression deformities or acute fractures identified. -Severe disc loss of height and signal at L4-5 with associated increased edematous type endplate signal, quite similar to 08/18/2024. Edema extends mildly into the L4 and L5 pedicles on the right, and L5 pedicle on the left. Findings most likely relate to stress response. The appearance is without significant change from 08/18/2024. Whether this represents residual sequela of discitis at L4-5, or disc degeneration at L4-5 with prominent edematous type endplate changes is unknown. Again, there is no evidence of intra or extradural abscess at this level. -No compression deformity. Focus of high T2 signal and low T1 signal in the superior endplate of L5 is unchanged, and may represent sequela of prior trauma or infection. -No abnormal infiltrating bone marrow signal. No significant additional endplate changes identified. DISCS: -Severe loss of disc height and signal L4-5, stable. -Moderate loss at L5-S1 with disc vacuum phenomenon, unchanged. -Mild loss spanning L1-L4, unchanged. SPINAL CANAL: -Mild epidural lipomatosis is present spanning L2-3 through the thecal sac termination. This is unchanged. -No abnormal developmental spinal canal abnormality. CONUS MEDULLARIS: -Terminates at L1. Morphology and signal is normal. INTRADURAL NERVE ROOTS: - No abnormal nerve root clumping, or nerve root mass is evident. Axial Disc Space Images: T12-L1: There is no central canal or neural foraminal narrowing. Normal facets. L1-L2: Shallow diffuse disc bulge is present concentrically involving both foraminal zones. Mild hypertrophic degenerative facet changes are present with mild posterior ligamentous thickening/infolding. There is mild central canal narrowing, mild left subarticular recess narrowing, and mild bilateral neural foraminal narrowing. No significant interval change. L2-L3: There is a shallow concentric disc bulge present extending into both foraminal zones where there are superimposed bilateral foraminal disc protrusions. There is a right paracentral annular fissuring. There are mild to moderate hypertrophic degenerative facet changes right greater than left. There is mild dorsal epidural lipomatosis, and mild posterior ligamentous thickening/infolding. There is mild central canal stenosis. There is mild to moderate right subarticular recess stenosis. There is mild to moderate right greater than left neural foraminal stenosis present. No interval change. L3-L4: There are small foraminal disc protrusions bilaterally, mild hypertrophic degenerative facet changes bilaterally, and mild dorsal epidural lipomatosis. There is mild central canal narrowing, mild right greater than left subarticular recess narrowing, where there is contact but no mass effect upon the traversing right L4 nerve roots. There is mild to moderate left greater than right neural foraminal stenosis. No significant interval change. L4-L5: Severe disc degeneration. There is a shallow disc osteophytic ridge complex present extending into the right foraminal zone and lateral to foramen, with a superimposed disc osteophytic protrusion extending into the left foraminal zone and lateral to foramen. There is mild dorsal epidural lipomatosis. There is moderate bilateral hypertrophic degenerative facet change left greater than right, with posterior ligamentous thickening/infolding. Combination of findings is resulting in mild to moderate central canal stenosis, moderate left subarticular recess stenosis, with probable mild impingement upon the traversing left L5 roots. There is mild contact but no definite impingement of the traversing right L5 roots. Moderate to severe bilateral neural foraminal encroachment is present with contact but no definite impingement of the exiting L4 roots. There has been no significant interval change in the appearance nor findings at this level. L5-S1: There is a shallow diffuse disc bulge extending into the right greater than left foraminal zones and lateral to foramen. There is ventral epidural lipomatosis present. There are moderate hypertrophic degenerative facet changes present. With there is mild posterior ligamentous thickening/infolding. Moderate central canal narrowing, with ventral epidural lipomatosis severely encroaching upon the traversing left S1 root within the subarticular recess, and moderately encroaching upon the right S1 root. These findings are unchanged. There is severe bilateral neural foraminal encroachment with likely impingement of the left greater than right exiting L5 nerve roots. No significant interval change in these findings. IMAGED SI JOINTS: -Mild degenerative arthritis bilaterally. PARAVERTEBRAL AND INCLUDED EXTRASPINAL SOFT TISSUES: -No significant prevertebral or paravertebral soft tissue edema is present. Specifically, no prevertebral or paravertebral edema, abscess, or other inflammatory abnormality is noted abutting the L4 or L5 levels. -A right anterior disc osteophytic protrusion is causing mild edema in the right aortoiliac fat (series 5, image 21). -The aorta is nonaneurysmal. -The kidneys appear normal. -The psoas and paraspinal musculature appears normal. IMPRESSION: 1. Spondylosis most significant at L4-5, with superimposed epidural lipomatosis as described above. Overall no significant change in these findings which are described in detail in the body of the report. 2. There is no discrete definitive evidence of discitis/osteomyelitis at this time, nor is there any evidence of abscess collection in the intradural, epidural, or extradural compartments. This includes the paraspinal regions. 3. See the body of the report for extensive discussion. Assessment & Plan Assessment & Plan (1) Lumbar radiculopathy: Comment: 05/31/2019 Code(s): M54.16 - Radiculopathy, lumbar region Category: Medical (2) Disc degeneration, lumbar: Code(s): M51.369 - Other intervertebral disc degeneration, lumbar region without mention of lumbar back pain or lower extremity pain Category: Medical (3) Lumbosacral spondylosis: Code(s): M47.817 - Spondylosis without myelopathy or radiculopathy, lumbosacral region Category: Medical (4) Vertebrogenic low back pain: Code(s): M54.51 - Vertebrogenic low back pain Category: Medical (5) Chronic low back pain: Code(s): M54.50 - Low back pain, unspecified; G89.29 - Other chronic pain Category: Medical (6) Sacroiliac joint pain: Code(s): M53.3 - Sacrococcygeal disorders, not elsewhere classified Category: Medical Plan The plan involves scheduling a caudal epidural steroid injection with catheter with sedation and fluoroscopy to manage the patient's chronic lower back pain and left sided radiculopathy and occasional right sided symptoms. The patient is instructed to pause Plavix for seven days before the procedure to reduce bleeding risks, pending clearance with prescribing physician permission. Expectations, risks and benefits were reviewed. Patient is aware he will be contacted to schedule this procedure. Additionally, the patient instructed to closely monitor blood glucose levels post-injection given hyperglycemic effects of steroids. A follow-up will be scheduled to evaluate the procedure's effectiveness and adjust pain management as necessary. Patient was informed and verbally consented to the use of an ambient scribe for clinic note documentation during this visit. Coding Level of Care Code Est Pt Level 4 (75036) Complex EM visit Add On G2211 Diagnoses Lumbar radiculopathy M54.16 Disc degeneration, lumbar M51.369 Lumbosacral spondylosis M47.817 Vertebrogenic low back pain M54.51 Chronic low back pain M54.50; G89.29 Sacroiliac joint pain M53.3
--- OUTSIDE RECORDS SUMMARY | 2025-04-13 13:03 | XMS_ITS | Clinical Summary ---
Author Organization [address] [facility] Address [address] [place] [address] Phone Care Team Providers Care Library Technician Name Role Phone Piedad Pacheco MD Primary Care Provide r Encounters Date Type Department Care Team Description 01/26/2025 Lab Requisition [facility] - Main Lab [address] [facility] [place] [id number] Juan Davidson MD Urinary tract infection, site [...] reflex microscopic (01/26/2025 1:12 PM EDT) Specific Allred Urine 1.026 1.003 - 1.030 LAB URINALYSIS [...] - AUTOMATED METHOD 01/26/2025 7:02 PM EDT [facility] Glucose, Urine >=1000(A) Negative mg/dL LAB URINALYSIS - AUTOMATED METHOD 01/26/2025 7:02 PM EDT [facility] Ketones, Urine Negative Negative mg/dL LAB URINALYSIS - AUTOMATED METHOD 01/26/2025 7:02 PM EDT [facility] Urobilinogen , Urine 1.0 0.2 - 1.0 mg/dL LAB URINALYSIS - AUTOMATED METHOD 01/26/2025 7:02 PM EDT [facility] Bilirubin, Urine Negative Negative LAB URINALYSIS - AUTOMATED METHOD 01/26/2025 7:02 PM EDT [facility] Blood, Urine Negative Negative LAB URINALYSIS - AUTOMATED METHOD 01/26/2025 7:02 PM [facility] Urine Urine specimen obtained by clean catch procedure / Unknown 01/26/2025 1:12 PM EDT 01/26/2025 6:10 PM EDT us Juan Davidson MD LAB URINE ORDERABLES Final Result [facility] [address] [place] [address], [place] [phone] * Complete blood count (01/26/2025 1:12 PM EDT) WBC 9.1 4.8 - 10.8 K/mcL LAB HEMETOLOGY METHOD 01/26/2025 6:52 PM EDT [facility] RBC 5.40 4.50 - 5.50 M/mcL LAB HEMETOLOGY METHOD 01/26/2025 6:52 PM EDT [facility] Hemoglobin 16.5 13.5 - 17.5 g/dL LAB HEMETOLOGY METHOD 01/26/2025 6:52 PM EDT [facility] Hematocrit 50.1 42.0 - 54.0 % LAB HEMETOLOGY METHOD 01/26/2025 6:52 PM EDT [facility] MCV 92.9 79.0 - 98.0 FL LAB HEMETOLOGY METHOD 01/26/2025 6:52 PM EDT [facility] MCH 30.6 27.0 - 32.0 pcg LAB HEMETOLOGY METHOD 01/26/2025 6:52 PM EDT [facility] MCHC 32.9 32.0 - 37.0 g/dL LAB HEMETOLOGY METHOD 01/26/2025 6:52 PM EDT [facility] RDW 12.1 11.0 - 15.0 % LAB HEMETOLOGY METHOD 01/26/2025 6:52 PM EDT [facility] Platelets 160 130 - 400 K/mcL LAB HEMETOLOGY METHOD 01/26/2025 6:52 PM EDT [facility] MPV 10.9 7.0 - 11.0 FL LAB HEMETOLOGY METHOD 01/26/2025 6:52 PM EDT [facility] NRBC 0.0 <1.0 % LAB HEMETOLOGY METHOD 01/26/2025 6:52 PM EDT [facility] NRBC Absolute 0.00 <0.10 K/mcL LAB HEMETOLOGY METHOD 01/26/2025 6:52 PM EDT [facility] Blood Venous blood specimen / Unknown 01/26/2025 1:12 PM EDT 01/26/2025 6:10 PM EDT us Juan Davidson MD LAB BLOOD ORDERABLES Final Result [facility] [address] [place] [address], * Culture urine (01/26/2025 1:12 PM EDT) Culture, Urine 10,000-49,000 CFU/mL Mixed urogenital alida, no uropathogens present. Suggest repeat specimen if clinically indicated. 01/27/2025 2:25 PM EDT [facility] Urine Urine specimen obtained by clean catch procedure / Unknown 01/26/2025 1:12 PM EDT 01/26/2025 6:10 PM EDT us Juan Davidson MD LAB MICROBIOLOGY - GENERAL ORDERABLES Final Result [facility] [address] [place] [address], [place] [phone] from Last 3 Months Insurance [employer] MED[employer]ARE [employer]VANTAGE MEDICAID - [place] Care Teams Library Technician Relationship Specialty Start Date End Date Piedad Pacheco MD [address] [phone] PCP - General 07/15/23
--- OUTSIDE RECORDS SUMMARY | 2025-04-13 13:03 | XMS_ITS | Encounter Summary ---
Author Organization [employer] Address [address] [facility] 7t [place] [address] Care Team Providers Care Party Plan Salesperson Name Role Phone Piedad Pacheco MD Primary Care Provide r Encounter Details Date Type Department Care Team ([facility] st Contact Info) Description 11/22/2024 Telephone [facility] MEDICINE [address] [place], [place] [phone] Piedad Pacheco MD [address] [place], [place] [phone] Social History Tobacco Use Types Packs/Day Years [...] Telemedicine [facility] MEDICINE [address] [place] [address] Francy Melara RN 05/31/2025 2:00 PM EDT Office Visit [facility] OPTOMETRY [address] [place] [address] Jhonatan, Shanika, OD [address] [place] [address] documented as of this encounter Visit Diagnoses Not on filedocumented in this encounter Additional Health Concerns Assessment Noted Time PHQ-9 Depression Total Score: 0 10/19/19 25 10:23 AM EST documented as of this encounter Care Teams Party Plan Salesperson Relationship Specialty Start Date End Date Piedad Pacheco MD [address] [place] [address] PCP - General Family Medicine 10/26/20 documented as of this encounter
--- OUTSIDE RECORDS SUMMARY | 2025-04-13 13:03 | XMS_ITS | Clinical Summary ---
Author Organization [facility] Address [address] [place] [address] Care Team Providers Care House Superintendent Name Role Phone Unknown Primary Care Provider [phone] Allergies No known active allergies Medications oxyCODONE-aceta [...] 66 05/15/2017 8:26 PM EDT Temperature 36.8 C (98.3 F) 05/15/2017 7:08 PM EDT Respiratory Rate 16 05/15/2017 8:26 PM EDT [...] Vaccine (1 of 2) 2011 COVID-19 Vaccine (2023-2 5 season) 2024 Influenza Vaccine 05/12/2025 RSV Vaccine 60 years and old er and Patients (1 - 1-dose 75+ series) 2036 Hepatitis B Vaccines Aged Out No long er eligible based on patient's age to complete this topic Insurance MEDICAID OUT OF STATE [facility] [address] [place] [address] MEDICARE OUT OF NETWORK Care Teams House Superintendent Relationship Specialty Start Date End Date Unknown Unknow Provider Address PCP - General 05/15/17
--- OUTSIDE RECORDS SUMMARY | 2025-04-13 13:03 | XMS_ITS ---
Author Name [facility] Organization Unknown Results Test Name/Text Value Interpretation Date Range Source GLUCOSE BLDC GLUCOMTR MCNC 111.0 mg/dL Normal 03/25/2024 70 - 199 [facility] FERRITIN SERPL MCNC 166.0 ng/mL Normal 03/25/2024 20 - 25 0 [facility] GLUCOSE BLDC GLUCOMTR MCNC 130.0 mg/dL Normal 03/25/2024 70 - 199 [facility] GLUCOSE BLDC GLUCOMTR MCNC 143.0 mg/dL Normal 03/25/2024 70 - 199 [facility] GLUCOSE BLDC GLUCOMTR MCNC 125.0 mg/dL Normal 03/24/2024 70 - 199 [facility] GLUCOSE BLDC GLUCOMTR MCNC 126.0 mg/dL Normal 03/24/2024 70 - 199 [facility] GLUCOSE BLDC GLUCOMTR MCNC 130.0 mg/dL Normal 03/24/2024 70 - 199 [facility] GLUCOSE BLDC GLUCOMTR MCNC 135.0 mg/dL Normal 03/24/2024 70 - 199 [facility] AMMONIA PLAS SCNC 28.0 mcmol/L Normal 03/24/2024 15 - 45 [facility] SODIUM SERPL SCNC 134.0 mmol/L Below low normal 03/24/2024 1 35 - 145 [facility] GLUCOSE SERPL MCNC 130.0 mg/dL Normal 03/24/2024 70 - 199 [facility] HCO3 SER SCNC 25.0 mmol/L Normal 03/24/2024 24 - 32 CTT [facility] ANION GAP SERPL SCNC 8.0 mmol/L Normal 03/24/2024 5 - 14 [facility] CHLORIDE SERPL SCNC 101.0 mmol/L Normal 03/24/2024 98 - 1 07 [facility] POTASSIUM SERPL SCNC 4.1 mmol/L Normal 03/24/2024 3.5 - 5.1 [facility] CREAT SERPL MCNC 1.1 mg/dL Normal 03/24/2024 0.7 - 1.3 CT [facility] Glomerular filtration rate/1.73 sq M. predicted 76.0 Normal 03/24/2024 60 - [facility] CALCIUM SERPL MCNC 8.6 mg/dL Normal 03/24/2024 8.4 - 10.2 [facility] BUN SERPL MCNC 16.0 mg/dL Normal 03/24/2024 9 - 20 CTT [facility] RDW RBC AUTO RTO 12.8 % Normal 03/24/2024 12.1 - 17.7 [facility] MCHC RBC AUTO MCNC 34.8 g/dL Normal 03/24/2024 32 - 36 [facility] MCV RBC AUTO 89.9 fL Normal 03/24/2024 78 - 100 [facility] RAN WBC NO. BLD AUTO 11.2 K/uL Above high normal 03/24/2024 4 - 10.5 [facility] HCT VFR BLD AUTO 45.2 % Normal 03/24/2024 40 - 54 [facility] HGB BLD MCNC 15.7 g/dL Normal 03/24/2024 13.5 - 18 [facility] RAN PMV BLD AUTO 8.5 fL Normal 03/24/2024 7.4 - 11.4 [facility] [place] PLATELET NO. BLD AUTO 175.0 K/uL Normal 03/24/2024 150 - 450 [facility] RBC NO. BLD AUTO 5.03 M/uL Normal 03/24/2024 4.7 - 6 CT [facility] MCH RBC QN AUTO 31.3 pg Normal 03/24/2024 25 - 33 CTT HS[facility]AN PH BLDV 7.41 Normal 03/24/2024 7.35 - 7.45 CTTHSFR AN SAO2% BLDV 100.0 % Normal 03/24/2024 CTTHSFRA N PO2 BLDV 133.0 mmHg Normal 03/24/2024 [facility]SFRA N HCO3 BLDV SCNC 27.5 mmol/L Normal 03/24/2024 CT [facility] PCO2 BLDV 45.0 mmHg Normal 03/24/2024 [facility] O2/INSPIRED GAS SETTING VFR VENT FIO2 not recorded Normal 03/24/2024 [facility] BASE EXCESS BLDV SCNC 3.0 mmol/L Normal 03/24/2024 [facility] BLOOD GAS SITE VENOUS Normal 03/24/2024 CTTH SFRAN GLUCOSE BLDC GLUCOMTR MCNC 146.0 mg/dL Normal 03/24/2024 70 - 199 [facility] GLUCOSE BLDC GLUCOMTR MCNC 158.0 mg/dL Normal 03/24/2024 70 - 199 [facility] GLUCOSE BLDC GLUCOMTR MCNC 123.0 mg/dL Normal 03/23/2024 70 - 199 [facility] GLUCOSE BLDC GLUCOMTR MCNC 197.0 mg/dL Normal 03/23/2024 70 - 199 [facility] GLUCOSE BLDC GLUCOMTR MCNC 138.0 mg/dL Normal 03/23/2024 70 - 199 [facility] GLUCOSE BLDC GLUCOMTR MCNC 124.0 mg/dL Normal 03/23/2024 70 - 199 [facility] PMV BLD AUTO 8.6 fL Normal 03/23/2024 7.4 - 11.4 [facility] HARDIK MCHC RBC AUTO MCNC 34.8 g/dL Normal 03/23/2024 32 - 36 [facility] MCV RBC AUTO 90.8 fL Normal 03/23/2024 78 - 100 [facility] RDW RBC AUTO RTO 13.1 % Normal 03/23/2024 12.1 - 17.7 [facility] HGB BLD MCNC 16.0 g/dL Normal 03/23/2024 13.5 - 18 [facility] WBC NO. BLD AUTO 7.8 K/uL Normal 03/23/2024 4 - 10.5 CT [facility] MCH RBC QN AUTO 31.6 pg Normal 03/23/2024 25 - 33 CTT HSFRAN RBC NO. BLD AUTO 5.07 M/uL Normal 03/23/2024 4.7 - 6 CT [facility] HCT VFR BLD AUTO 46.0 % Normal 03/23/2024 40 - 54 CT [facility] PLATELET NO. BLD AUTO 165.0 K/uL Normal 03/23/2024 150 - 450 [facility] POTASSIUM SERPL SCNC 3.9 mmol/L Normal 03/23/2024 3.5 - 5.1 [facility] SODIUM SERPL SCNC 138.0 mmol/L Normal 03/23/2024 135 - 14 5 [facility] GLUCOSE SERPL MCNC 127.0 mg/dL Normal 03/23/2024 70 - 199 [facility] CREAT SERPL MCNC 1.1 mg/dL Normal 03/23/2024 0.7 - 1.3 CT [facility] CALCIUM SERPL MCNC 9.2 mg/dL Normal 03/23/2024 8.4 - 10.2 [facility] HCO3 SER SCNC 27.0 mmol/L Normal 03/23/2024 24 - 32 CTT HS[facility] BUN SERPL MCNC 14.0 mg/dL Normal 03/23/2024 9 - 20 CTT HS[facility] CHLORIDE SERPL SCNC 105.0 mmol/L Normal 03/23/2024 98 - 1 07 [facility] Glomerular filtration rate/1.73 sq M. predicted 76.0 Normal 03/23/2024 60 - [facility] ANION GAP SERPL SCNC 6.0 mmol/L Normal 03/23/2024 5 - 14 [facility] MAGNESIUM SERPL MCNC 2.2 mg/dL Normal 03/23/2024 1.7 - 2.8 [facility] GLUCOSE BLDC GLUCOMTR MCNC 146.0 mg/dL Normal 03/23/2024 70 - 199 [facility] GLUCOSE BLDC GLUCOMTR MCNC 143.0 mg/dL Normal 03/22/2024 70 - 199 [facility] GLUCOSE BLDC GLUCOMTR MCNC 123.0 mg/dL Normal 03/22/2024 70 - 199 [facility] GLUCOSE BLDC GLUCOMTR MCNC 121.0 mg/dL Normal 03/22/2024 70 - 199 [facility] CREAT UR MCNC 63.0 mg/dL Normal 03/22/2024 [facility] OSMOLALITY UR 424.0 mOsm/kg Normal 03/22/2024 50 - 1200 C T[facility] SODIUM UR SCNC 101.0 mmol/L Normal 03/22/2024 C T[facility]AN GLUCOSE BLDC GLUCOMTR MCNC 118.0 mg/dL Normal 03/22/2024 70 - 199 [facility] GLUCOSE BLDC GLUCOMTR MCNC 124.0 mg/dL Normal 03/22/2024 70 - 199 [facility] Troponin I SerPl HS-mCnc 9.0 ng/L Normal 03/22/2024 0 - 20 [facility] Hgb A1c MFr Bld HPLC 6.4 % Above high normal 03/22/2024 - 5.7 [facility] NEUTROPHILS NO. BLD AUTO 3.4 K/uL Normal 03/22/2024 1.8 - 7.8 [facility] EOSINOPHIL NO. BLD AUTO 0.2 K/uL Normal 03/22/2024 0 - 0.5 [facility] WBC NO. BLD AUTO 7.4 K/uL Normal 03/22/2024 4 - 10.5 CT [facility] RDW RBC AUTO RTO 12.8 % Normal 03/22/2024 12.1 - 17.7 [facility] PMV BLD AUTO 8.2 fL Normal 03/22/2024 7.4 - 11.4 [facility] HCT VFR BLD AUTO 42.0 % Normal 03/22/2024 40 - 54 [facility] LYMPHOCYTES NO. BLD AUTO 3.3 K/uL Above high normal 03/22/2024 1 - 3.2 [facility] MONOCYTES NFR BLD AUTO 5.5 % Normal 03/22/2024 2 - 12 [facility] MCH RBC QN AUTO 32.1 pg Normal 03/22/2024 25 - 33 CTT [facility] LYMPHOCYTES NFR BLD AUTO 45.2 % Normal 03/22/2024 20 - 48 [facility] MCHC RBC AUTO MCNC 34.7 g/dL Normal 03/22/2024 32 - 36 [facility] EOSINOPHIL NFR BLD AUTO 2.5 % Normal 03/22/2024 0 - 6 [facility] BASOPHILS IN BLOOD BY AUTOMATED COUNT 0.1 K/uL Normal 03/22/2024 0 - 0.2 [facility] DIFFERENTIAL TYPE AUTOMATED Normal 03/22/2024 C [facility] NEUTROPHILS NFR BLD AUTO 46.1 % Normal 03/22/2024 44 - 74 [facility] MCV RBC AUTO 92.3 fL Normal 03/22/2024 78 - 100 [facility] R[facility] RBC NO. BLD AUTO 4.55 M/uL Below low normal 03/22/2024 4.7 - 6 [facility] BASOPHILS NFR BLD AUTO 0.7 % Normal 03/22/2024 0 - 2 [facility] HGB BLD MCNC 14.6 g/dL Normal 03/22/2024 13.5 - 18 [facility] MONOCYTES NO. BLD AUTO 0.4 K/uL Normal 03/22/2024 0 - 0.8 [facility] PLATELET NO. BLD AUTO 155.0 K/uL Normal 03/22/2024 150 - 450 [facility] HCO3 SER SCNC 23.0 mmol/L Below low normal 03/22/2024 24 - 3 2 [facility] POTASSIUM SERPL SCNC 4.2 mmol/L Normal 03/22/2024 3.5 - 5.1 [facility] ANION GAP SERPL SCNC 6.0 mmol/L Normal 03/22/2024 5 - 14 [facility] CREAT SERPL MCNC 1.1 mg/dL Normal 03/22/2024 0.7 - 1.3 CT [facility] CALCIUM SERPL MCNC 9.0 mg/dL Normal 03/22/2024 8.4 - 10.2 [facility] BUN SERPL MCNC 12.0 mg/dL Normal 03/22/2024 9 - 20 CTT HSFRAN SODIUM SERPL SCNC 132.0 mmol/L Below low normal 03/22/2024 1 35 - 145 [facility] Glomerular filtration rate/1.73 sq M. predicted 76.0 Normal 03/22/2024 60 - [facility] GLUCOSE SERPL MCNC 111.0 mg/dL Normal 03/22/2024 70 - 199 [facility] CHLORIDE SERPL SCNC 103.0 mmol/L Normal 03/22/2024 98 - 1 07 [facility] Troponin I SerPl HS-mCnc 10.0 ng/L Normal 03/22/2024 0 - 20 [facility] INR PPP 0.9 Normal 03/22/2024 0.8 - 1.1 [facility] PT TIME PPP 11.2 sec Normal 03/22/2024 10.5 - 13.3 [facility] OSMOLALITY SERPL 292.0 mOsm/kg Normal 03/22/2024 275 - 29 5 [facility] HDLC SERPL-MCNC 30.0 mg/dL Below low normal 03/22/2024 32 - 70 [facility] TRIGL SERPL-MCNC 288.0 mg/dL Above high normal 03/22/2024 - 150 [facility] CHOLEST SERPL-MCNC 135.0 mg/dL Normal 03/22/2024 0 - 200 [facility] LDLc SerPl Calc-mCnc 47.0 mg/dL Below low normal 03/22/2024 50 - 130 [facility] GLUCOSE BLDC GLUCOMTR MCNC 101.0 mg/dL Normal 03/22/2024 70 - 199 CTT[facility]AN History of Medication Use Medication Directions Dispensed Refills Start Date End Date Stat iopamidol (ISOVUE-370) 76 % injection 85 mL 85 mL, Intravenous, IMG once as needed, contrast, Starting on Thu03/24/24 at 0602, For 1 dose, Radiology ContrastLot #: [id number] Date: 10/24/2026 03/24/2024 4 completed LORazepam (ATIVAN) [...] First dose on Thu03/22/24 at 2200MEDIUM CORRECTIONAL DOSE Usual starting dose or insulin TDD 43-84 units Blood Glucose Dose in Units --- 03/23/2024 active mupirocin (BACTROBAN) 2 % ointment 1 application. 1 application., Topical, 2 times daily, First dose on Thu03/22/24 at 0900, For 5 daysApply 0.5 grams to each nostril twice daily for 5 days. FOR ICU ADMINISTRATION ONLY 03/22/2024 4 active rOPINIRole (REQUIP) tablet 2 mg 2 mg, Oral, 3 times daily, First dose on Thu03/24/24 at 1600 03/22/2024 4 active iopamidol (ISOVUE-370) 76 % injection 40 mL 40 mL, Intravenous, IMG once as needed, contrast, Starting on Thu03/22/24 at 0036, For 1 dose, Radiology ContrastLot #: [id number] Date: 10/22/2026 03/22/2024 4 completed iopamidol (ISOVUE-370) 76 % injection 60 mL 60 mL, Intravenous, IMG once as needed, contrast, Starting on Thu03/22/24 at 0026, For 1 dose, Radiology ContrastLot #: [id number] Date: 10/22/2026 03/22/2024 4 completed atorvastatin (LIPITOR) tablet 80 mg Take 1 tablet (80 mg total) by mouth every evening. 03/22/2024 active insulin Lispro (HumaLOG) injection 1-6 Units 1-6 Units, Subcutaneous, 3 times daily before meals, First dose on Thu03/22/24 at 0830LOW CORRECTIONAL DOSE (Elderly or insulin sensitive patient or insulin TDD is less than 43 units ) Blood Glu 03/22/2024 active ipratropium-albuter ol (DUO-NEB) nebulizer [...] occlusion or stenosis of unspecified cerebral artery [facility] 03/25/2024 Inpatient Cerebral infarction due to unspecified occlusion or stenosis of unspecified cerebral artery Cerebral infarction due to unspecified occlusion or stenosis of unspecified cerebral artery [facility] 03/22/2024 Care Team Organization Name Specialty Phone Email Start Date End Da lulu [facility] GINA GUOMAN Primary Care 03/22/2024
--- OUTSIDE RECORDS SUMMARY | 2025-04-13 13:03 | XMS_ITS | Clinical Summary ---
Author Organization [facility] [employer] [facility] Address [address] [place] [address] Care Team Providers Care Logistics Planner Name Role Phone Piedad Pacheco MD Primary [...] 86 03/25/2024 3:26 PM EDT Temperature 36.6 C (97.9 F) 03/25/2024 11:00 AM EDT Respiratory Rate 16 03/25/2024 3:26 PM EDT [...] 2006 Shingrix-Zoster Vaccine (1 of 2) 2011 Influenza Vaccine (#1) 2025 2, 08/29/2019, 07/23/2017, Additional history exists Pneumococcal Vaccine (2 of 2 - PCV) 2026 08/29/2019, 04/23/2015 DTap / Tdap / Td (3 - Td or Tdap) 06/11/2027 06/11/2017, 08/23/2013 RSV Adult > 60+ Yrs or (1 - 1-dose 75+ series) 2036 Pneumococcal Vaccine Aged Out 08/29/2019, 04/23/20 15 No longer eligible based on patient's age to complete this topic Hepatitis B Vaccines Aged Out No long er eligible based on patient's age to complete this topic RSV Ped < 20 months Aged Out No longe r eligible based on patient's age to complete this topic Advance Directives For more information, please contact: [phone] Latest Code Status on File Code Status Date Activated Date Inactivated Comments Full Code 03/22/2024 2:04 AM 03/26/2024 1:02 AM This code status was ascertained in the following way: discussion with patient . Care Teams Logistics Planner Relationship Specialty Start Date End Date Piedad Pacheco MD [address] [place] [phone] PCP - General Internal Medicine 03/21/24
[2025-04-13 13:05] VITALS: BP 136/70; PULSE 91; O2SAT 96; BMI 36.3
== END 2025-04-13 13:33 | disposition home or self-care (01) ==
LOC: HO.PMC 13:00
PROVIDERS: PCP Internal Medicine; Visit Provider Nurse Practitioner Family
DX: M54.16 Radiculopathy, lumbar region (principal); M51.369 Other intervertebral disc degeneration, lumbar region without mention of lumbar back pain or lower extremity pain; M47.817 Spondylosis without myelopathy or radiculopathy, lumbosacral region; M54.51 Vertebrogenic low back pain; M54.50 Low back pain, unspecified; G89.29 Other chronic pain; M53.3 Sacrococcygeal disorders, not elsewhere classified
CPT/HCPCS: 99214; G2211

== ENCOUNTER → 2025-04-13 12:59 | Outpatient (BNVA) | payer MEDICARE, SELFPAY | PROVIDERS: PCP Internal Medicine; Visit Provider Nurse Practitioner Family | DX: M54.16 Radiculopathy, lumbar region (principal); M51.369 Other intervertebral disc degeneration, lumbar region without mention of lumbar back pain or lower extremity pain; M47.817 Spondylosis without myelopathy or radiculopathy, lumbosacral region; M54.51 Vertebrogenic low back pain; M54.50 Low back pain, unspecified; M53.3 Sacrococcygeal disorders, not elsewhere classified; G89.29 Other chronic pain | CPT/HCPCS: 99212 ==

== ENCOUNTER 2025-05-12 13:18 | Outpatient (REF) | payer OTHER, SELFPAY ==
--- OUTSIDE RECORDS SUMMARY | 2025-05-12 13:26 | XMS_ITS | Clinical Summary ---
Author Organization [facility] Address [address] [place] [address] Phone Care Team Providers Care Membership Assistant Name Role Phone Piedad Pacheco MD Primary Care Provide r Surgical History Surgery Date Site/Laterality Comments HAND [...] 08/29/2019, 04/23/2015 Colorectal Cancer Screening: Colonoscopy 11/15/2023 HIV Screening 11/15/2023 Hepatitis C Screening 11/15/2023 Medicare Annual Wellness Visit 11/15/2023 Social Influencers of Health Screening 11/15/2023 COVID-19 Vaccine ( season) 2024 Depression Screening 10/12/2024 Hypertension/CHF/CAD Annual BMP Blood Test 03/24/2025 03/24/2024, 03/23/2024, 03/22/2024 Influenza Vaccine (#1) 2025 , 08/29/2019, 07/23/2017, Additional history exists DTaP,Tdap,and Td Vaccines (4 - Td or Tdap) 06/11/2027 06/11/2017, 04/23/2015, 08/23/2013 Cholesterol Screening (Lipid Panel) 03/22/2029 03/22/2024 RSV Immunization Adult Patients (1 - 1-dose 75+ series) 2036 HIB Vaccines Aged Out No longer eligi [...] patient's age to complete this topic Insurance [employer] MEDICARE ADVANTAGE MEDICAID - [place] Care Teams Membership Assistant Relationship Specialty Start Date End Date Piedad Pacheco MD [address] [place] [phone] PCP - General 07/15/23
--- OUTSIDE RECORDS SUMMARY | 2025-05-12 13:26 | XMS_ITS | Encounter Summary ---
Author Organization [employer] Address [address] [facility] 7t [place] [address] Care Team Providers Care Vehicle Dynamics Engineer Name Role Phone Piedad Pacheco MD Primary Care Provide r Encounter Details Date Type Department Care Team ([facility] st Contact Info) Description 11/22/2024 Telephone [facility] MEDICINE [address] [place], [place] [phone] Piedad Pacheco MD [address] [place], [place] [phone] Social History Tobacco Use Types Packs/Day Years [...] Care Team (Late st Contact Info) Description 05/31/2025 2:00 PM EDT Office Visit [facility] OPTOMETRY [address] [place] [address] Shanika Israel, OD [address] [place] [address] documented as of this encounter Visit Diagnoses Not on filedocumented in this encounter Additional Health Concerns Assessment Noted Time PHQ-9 Depression Total Score: 0 10/19/19 25 10:23 AM EST documented as of this encounter Care Teams Vehicle Dynamics Engineer Relationship Specialty Start Date End Date Piedad Pacheco MD [address] [place] [address] PCP - General Family Medicine 10/26/20 documented as of this encounter
--- OUTSIDE RECORDS SUMMARY | 2025-05-12 13:26 | XMS_ITS | Clinical Summary ---
Author Organization [facility] Address [address] [place] [address] Care Team Providers Care Fish Hatchery Laborer Name Role Phone Piedad Pacheco MD Primary [...] Advance Directives For more information, please contact: [phone] Latest Code Status on File Code Status Date Activated Date Inactivated Comments Full Code 03/22/2024 2:04 AM 03/26/2024 1:02 AM This code status was ascertained in the following way: discussion with patient . Care Teams Fish Hatchery Laborer Relationship Specialty Start Date End Date Piedad Pacheco MD [address] [place] [phone] PCP - General Internal Medicine 03/21/24
--- OUTSIDE RECORDS SUMMARY | 2025-05-12 13:26 | XMS_ITS | Clinical Summary ---
Author Organization [facility] Address [address] [place] [id number] Care Team Providers Care Driving School Instructor Name Role Phone Unknown Primary Care Provider [phone] Allergies No known active allergies Medications oxyCODONE-aceta [...] this topic Insurance MEDICAID OUT OF STATE [facility] [place] [address] MEDICARE OUT OF NETWORK Care Teams Driving School Instructor Relationship Specialty Start Date End Date Unknown Unknow Provider Address PCP - General 05/15/17
[2025-05-12 15:04] LABS: Anion Gap 10 (12-20); Blood Urea Nitrogen 14 mg/dL (9-16); Calcium 9.6 mg/dL (8.4-10.2); Carbon Dioxide 26 mmol/L (22-29); Chloride 108 mmol/L (96-108); Estimated Glomerular Filt Rate > 60; Potassium 4.1 mmol/L (3.3-5.1); Sodium 140 mmol/L (135-145)
== END 2025-05-12 13:19 | disposition home or self-care (01) ==
LOC: HO.LAB 13:18
PROVIDERS: PCP Internal Medicine
DX: I42.9 Cardiomyopathy, unspecified (principal)
CPT/HCPCS: 36415; 80048

== ENCOUNTER 2025-05-24 09:26 | Outpatient (AMB) | payer OTHER, SELFPAY ==
[2025-05-24 09:29] VITALS: BP 122/68; PULSE 86
--- NOTE | 2025-05-24 09:29 | MHC.OFFVIS ---
Vital Signs 05/24/25 09:29 Height 5 ft 6 in BMI Reason not done Patient refused/unable BP 122/68 Blood Pressure Location Lt brachial Position Sitting Pulse 86 Pulse Source Monitor Intake Visit Reasons: cta f/up dr request Allergies No Known Allergies Allergy (Verified 04/13/25 13:06) Medication List - Last Reconciled 05/24/25 by Papa Ricketts MD aspirin (Adult Aspirin Regimen) 81 mg PO DAILY atorvastatin 80 mg PO DAILY clopidogrel 75 mg PO DAILY dapagliflozin propanediol (Farxiga) 10 mg PO DAILY famotidine 20 mg PO BID metformin 500 mg PO BID oxycodone 5 mg PO Q6H PRN ropinirole 2 mg PO DAILY tadalafil 20 mg PO DAILY PRN zolpidem 10 mg PO BEDTIME PRN HPI Comments Details: Javier returns for follow-up. Few months back, he was seen in consultation regarding stroke and congestive heart failure. PCP records were reviewed. However we do not have the actual records from hospitalization. It seems that he had sudden onset of right sided weakness and MRI had apparently showed MCA/BENJI watershed infarct. Echocardiogram had shown LVEF of 40-50%. Then it seems he was put on dual antiplatelet therapy. Any case, he has been referred here for further evaluation. His main symptoms are weakness from stroke and nonspecific pains. With regard to chest pain, he is extremely vague. Does not appear that he has got any clear-cut angina type symptoms but he is essentially describing pain everywhere. He comes in a motorized scooter. 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 Heart failure Ischemic stroke Balanitis Osteomyelitis Moderate episode of recurrent major depressive disorder Restless leg syndrome History of cocaine use Essential (primary) hypertension CKD (chronic kidney disease) Hx of exertional chest pain Dry eye Other hyperlipidemia Urinary incontinence Lumbar radiculopathy COPD (chronic obstructive pulmonary disease) Diabetes Elevated alanine aminotransferase (ALT) level History of hepatitis B Hepatitis B immune Obstructive sleep apnea Fibromyalgia Hepatitis A immune Cervical disc disease Metabolic syndrome Cardiovascular event risk Surgical History Status post insertion of spinal cord stimulator Family History Father Prostate cancer Heart problem Mother Heart attack DM2 (diabetes mellitus, type 2) Sister Stomach cancer Brother Alzheimer disease Social History Household Members: Significant Other Housing: House Do you presently have visiting nurse or other home services: No Alcohol intake: current Alcohol intake frequency: does not drink Alcohol type: hard liquor Patient Tobacco Use Status: Current everyday Tobacco user Tobacco use type: Cigarette Cigarettes Per Day: 2 service: No Review of Systems Const Reports body aches, Reports fatigue and Denies weakness ENT Denies dizziness Card Denies chest pain, Denies chest pain with activity, Denies syncope, Denies rapid heart rate, Denies pedal edema, Denies edema, Denies leg edema, Denies lightheadedness, Denies palpitations, Reports dyspnea, Denies dyspnea on exertion and Denies orthopnea Resp Denies cough, Reports dyspnea and Denies dyspnea on exertion GI Denies hematochezia and Denies change in stool character Musc Denies abnormal gait, Reports back pain, Reports myalgias, Reports arthralgias, Denies muscle cramps, Denies muscle weakness, Denies numbness, Denies radiating pain into limb and Denies tingling Neuro Denies Abnormal speech present, Denies abnormal gait, Denies dizziness, Denies syncope, Denies numbness, Denies tingling and Denies weakness Endo Reports fatigue and Denies palpitations Physical Exam Vital Signs: Last Vital Signs Pulse 86 05/24/25 09:29 BP 122/68 05/24/25 09:29 Const Other: In wheelchair General: comfortable and no acute distress Orientation/consciousness: patient oriented x3 HEENT Other: Unremarkable Head: Yes normal to inspection Neck Neck: Yes normal visual inspection Chest Chest palpation & inspection: normal inspection of the chest Resp Auscultation: clear to auscultation bilaterally Cardio Palpation: normal PMI Heart sounds: S1 normal heart sound present, S2 normal heart sound present, no gallops, no murmurs and no rubs GI Palpation (GI): Soft to palpation Back/Spine/Pelvis Other: unremarkable Skin General skin exam: no rashes or lesions noted Neuro General: patient oriented x3 Speech: No Abnormal speech present Extrem General: Yes normal to inspection Psych Mental Status: mental status grossly normal Office Procedures EKG Details: EKG with underlying sinus rhythm at 86/Min; rightward axis; nonspecific ST-T changes; [place] [id number], Complete Assessment & Plan Assessment & Plan (1) Atherosclerotic cardiovascular disease: Code(s): I25.10 - Atherosclerotic heart disease of [place] coronary artery without angina pectoris Category: Medical Plan: Per PCP note, LVEF was 40-50% on the echocardiogram at [facility]. In the repeat echocardiogram in our system, LVEF is 50-55%. In the coronary CTA, probably severe stenosis in the mid LAD due to mixed plaque, possible [id number] collaterals. Probably severe stenosis in the circumflex at the level of takeoff of the OM. Proceed with diagnostic catheterization for further evaluation. (2) Ischemic stroke: Code(s): I63.9 - Cerebral infarction, unspecified Category: Medical Plan: Records were requested from [facility], but message came back that they are not able to locate any records. He can continue dual antiplatelet therapy for now. Plan Discussion Notes I discussed with the patient the need for an angiogram to assess the coronary blockages further. We talked about the importance of smoking cessation and its benefits for cardiovascular health. Patient was informed and verbally consented to the use of an ambient scribe for clinic note documentation during this visit. Orders: Orders Complete Blood Count no Diff Today I25.10 - Atherosclerotic heart disease of [place] coronary artery without angina pectoris Basic Metabolic Panel Today I25.10 - Atherosclerotic heart disease of [place] coronary artery without angina pectoris Prothrombin Time INR Today I25.10 - Atherosclerotic heart disease of [place] coronary artery without angina pectoris Cardiac Cath LT Diagnostic Today I25.10 - Atherosclerotic heart disease of [place] coronary artery without angina pectoris Patient Instructions: - Schedule an angiogram as discussed. - Stop smoking to improve heart health. - Continue taking Farxiga for diabetes management. Coding Level of Care Code Est Pt Level 4 (62835) Complex EM visit Add On G2211 Diagnoses Atherosclerotic cardiovascular disease I25.10 Ischemic stroke I63.9 CPT Codes EKG - CPT: 70294-[id number], Complete ([id number])
--- OUTSIDE RECORDS SUMMARY | 2025-05-24 09:52 | XMS_ITS | Encounter Summary ---
Author Organization [email or web address] Address [address] [facility] 7t [place] [address] Care Team Providers Care Crusher Tender Name Role Phone Piedad Pacheco MD Primary Care Provide r Encounter Details Date Type Department Care Team ([facility] st Contact Info) Description 11/22/2024 Telephone [facility] [address] [place], [place] [phone] Piedad Pacheco MD [address] [place], [place] [phone] Social History Tobacco Use Types Packs/Day Years [...] Description 05/31/2025 2:00 PM EDT Office Visit [facility] [address] [place] [address] Jhonatan, Shanika, OD [address] [place] [address] 07/18/2025 10:00 AM EDT Office Visit [facility] [address] [place] [address] Piedad Pacheco MD [address] [place] [address] documented as of this encounter Visit Diagnoses Not on filedocumented in this encounter Additional Health Concerns Assessment Noted Time PHQ-9 Depression Total Score: 0 10/19/19 25 10:23 AM EST documented as of this encounter Care Teams Crusher Tender Relationship Specialty Start Date End Date Piedad Pacheco MD [address] [place], [place] [phone] PCP - General Family Medicine 10/26/20 documented as of this encounter
--- OUTSIDE RECORDS SUMMARY | 2025-05-24 09:52 | XMS_ITS | Clinical Summary ---
Author Organization [facility] Address [address] [place] [address] Phone Care Team Providers Care Bacteriologist Pharmaceutical Name Role Phone Piedad Pacheco MD Primary [...] MEDICARE ADVANTAGE [place]ICAID - [place] Care Teams Bacteriologist Pharmaceutical Relationship Specialty Start Date End Date Piedad Pacheco MD [address] [place] [phone] PCP - General 07/15/23
--- OUTSIDE RECORDS SUMMARY | 2025-05-24 09:52 | XMS_ITS | Clinical Summary ---
Author Organization [facility] Address [address] [place] [address] Care Team Providers Care Logistics Tech Name Role Phone Unknown Primary Care Provider [phone] Allergies No known active allergies Medications oxyCODONE-aceta [...] this topic Insurance MEDICAID OUT OF STATE [address] [place] [place] [address] MEDICARE OUT OF NETWORK Care Teams Logistics Tech Relationship Specialty Start Date End Date Unknown Unknow Provider Address PCP - General 05/15/17
--- OUTSIDE RECORDS SUMMARY | 2025-05-24 09:52 | XMS_ITS | Clinical Summary ---
Author Organization [facility] Address [address] [place] [address] Care Team Providers Care Manager Heart Name Role Phone Piedad Pacheco MD Primary [...] Advance Directives For more information, please contact: [phone] Latest Code Status on File Code Status Date Activated Date Inactivated Comments Full Code 03/22/2024 2:04 AM 03/26/2024 1:02 AM This code status was ascertained in the following way: discussion with patient . Care Teams Manager Heart Relationship Specialty Start Date End Date Piedad Pacheco MD [address] [place] [phone] PCP - General Internal Medicine 03/21/24
== END 2025-05-24 10:03 | disposition home or self-care (01) ==
LOC: HO.HCS 09:26
PROVIDERS: PCP Internal Medicine; Visit Provider Internal Medicine
DX: I25.10 Atherosclerotic heart disease of native coronary artery without angina pectoris (principal); I63.9 Cerebral infarction, unspecified
CPT/HCPCS: 93010; 99214; G2211

== ENCOUNTER → 2025-05-24 09:26 | Outpatient (BNVA) | payer OTHER, SELFPAY | PROVIDERS: PCP Internal Medicine; Visit Provider Internal Medicine | DX: I25.10 Atherosclerotic heart disease of native coronary artery without angina pectoris (principal) | CPT/HCPCS: 93005; 99212 ==

== ENCOUNTER 2025-06-21 10:49 | Outpatient (REF) | payer OTHER, SELFPAY ==
--- OUTSIDE RECORDS SUMMARY | 2025-06-19 09:30 | XMS_ITS | Encounter Summary ---
Author Organization [employer] Address [address] [facility] 7t [place] [address] Care Team Providers Care Rose Grader Name Role Phone Piedad Pacheco MD Primary Care Provide r Reason for Visit * Reason Comments [employer] RV Encounter Details Date Type Department Care Team ([facility] Contact Info) Description 06/19/2025 9:30 AM EDT Telemedicine [facility] MEDICINE [address] [place] [address] Francy Melara RN Long-term current use of opiate analgesic Social History Tobacco Use Types Packs/Day Years [...] AM EDT documented as of this encounter Progress Notes * Francy Melara RN - 06/19/2025 9:30 AM EDT SUBJECTIVE: Javier Blank is a 65 y.o. year old male who is called for [employer] Preferred language for medical information: [place] Javier Blank does report adherence to Oxycodone 5 mg, take 1 tablet every 8 hours PRN, last refilled 06/16/2025. The patient last took Oxycodone on: 06/18/2025 Medication is: 80% % effective at alleviating pain. OBJECTIVE: AGRONOMIST checked: 06/19/2025 Pill count completed for Oxycodone , patient reports count today is 14 , anticipated count should be 11, this is as expected. Vital Signs Pain Score: 10-Worst pain ever Pain Loc: Back Pain Education: Yes Additional pain site: both legs Last PCP visit: 12/27/2024 BPI completed on: 06/19/2025 , pain severity score: 9, activity interference score: 9 BPI completed on: 11/23/2024 , pain severity score: 9, activity interference score: 6 Controlled substance agreement signed: Controlled Substance Agreement 11/23/2024 [employer]OWER [employer] Tele Tier: 2 Current Medications[1] Smoking status: Yes, 1/2 pack per day ETOH use: Yes, rarely, couple shots of rum Illicit substances: Denies Marijuana use: No ASSESSMENT: Encounter Diagnosis Name Primary? Long-term current use of opiate analgesic PLAN: Information on pain group given: Previously discussed Information on acupuncture given: Previously discussed Narcan education provided: Previously discussed Narcan prescription: active Will update PCP with BPI scoring & send request for oxycodone refill. Javier Walkers will continue taking medication as prescribed and follow up at the next Tele P[employer] visit or sooner if needed. Javier Blank has verbalized understanding of care plan. Future Appointments Date Time Provider Department Center 07/18/2025 10:00 AM Piedad Little MD MEDICINE [facility] 08/25/2025 11:00 AM Francy Melara RN MEDICINE [facility] Francy Melara RN [1] Current Outpatient Medications: oxyCODONE (Roxicodone) 5 MG immediate release tablet, Take 1 tablet (5 mg) by mouth every 8 (eight)hours if needed for severe pain for up to 7 days., Disp: 21 tablet, Rfl: 0 Alcohol Swabs 70 % pads, Use to test blood sugar 2 times daily, Disp: 100 each, Rfl: 2 aspirin (EQ Aspirin Adult Low Dose) 81 MG EC tablet, TAKE 1 TABLET BY MOUTH EVERY DAY, Disp: 90 tablet, Rfl: 0 atorvastatin (Lipitor) 80 MG tablet, Take 1 tablet (80 mg) by mouth at bedtime., Disp: 90 tablet, Rfl: 0 Blood Glucose Monitoring Suppl (FreeStyle [place] Lite) w/Device kit, Use to test blood sugar 2 times daily, Disp: 1 kit, Rfl: 0 Blood Pressure Monitor kit, Use as directed 3x/week, Disp: 1 kit, Rfl: 0 Cialis 20 MG tablet, TAKE 1 TABLET BY MOUTH 45 MINUTES BEFORE SEXUAL ACTIVITY DIRECTED, Disp: 10tablet, Rfl: 0 clopidogrel (Plavix) 75 MG tablet, TAKE 1 TABLET BY MOUTH EVERY DAY, Disp: 30 tablet, Rfl: 0 clotrimazole (Lotrimin) 1 % cream, apply by topical route 2 times every day to the affected and surrounding areas of skin in the morning and evening, Disp: 60 g, Rfl: 1 docusate sodium (Colace) 100 MG capsule, Take 1 capsule (100 mg) by mouth 2 times daily., Disp: 60 capsule, Rfl: 11 famotidine (Pepcid) 20 MG tablet, TAKE 1 TABLET BY MOUTH TWICE DAILY, Disp: 180 tablet, Rfl: 0 Farxiga 10 MG, TAKE 1 TABLET BY MOUTH EVERY DAY, Disp: 90 tablet, Rfl: 1 fluticasone (Flonase) 50 MCG/ACT nasal spray, USE 1 SPRAY(S) IN EACH NOSTRIL TWICE DAILY, Disp: , Rfl: FREESTYLE LITE test strip, USE STRIP TO CHECK GLUCOSE THREE TIMES DAILY, Disp: , Rfl: hydrOXYzine pamoate (Vistaril) 50 MG capsule, Take 1 capsule by mouth 3 times daily., Disp: , Rfl: Lancets misc, Use to test blood sugar 2 times daily, Disp: 100 each, Rfl: 2 lidocaine (Lidoderm) 5 % patch, APPLY 1 PATCH TOPICALLY ONCE DAILY TO THE MOST PAINFUL AREA. LEAVE ON FOR UP TO 12 HOURS THEN REMOVE AND DISCARD, Disp: , Rfl: loratadine (Claritin) 10 MG tablet, Take on tablet every 12 hrs for 3 days then one tablet at bed time, Disp: 90 tablet, Rfl: 0 metFORMIN (Glucophage) 500 MG tablet, TAKE 1 TABLET BY MOUTH WITH BREAKFAST AND EVENING MEAL, Disp:180 tablet, Rfl: 2 naloxone (Narcan) 4 mg/0.1 mL nasal spray, Administer 1 spray (4 mg) into affected nostril(s) if needed for opioid reversal. May repeat every 2-3 minutes if needed, alternating nostrils, until medical assistance becomes available., Disp: 2 each, Rfl: 3 nicotine (Nicoderm CQ) 14 MG/24HR patch, Place 1 patch on the skin 1 (one) time each day at the same time., Disp: 42 patch, Rfl: 0 nicotine (Nicoderm CQ) 7 MG/24HR patch, Place 1 patch on the skin 1 (one) time each day at the sametime., Disp: 14 patch, Rfl: 0 nicotine polacrilex (Commit) 2 MG lozenge, Dissolve 1 lozenge (2 mg) in the mouth if needed for smoking cessation., Disp: 100 lozenge, Rfl: 0 rOPINIRole (Requip) 2 MG tablet, TAKE 1 TABLET BY MOUTH THREE TIMES DAILY, Disp: 270 tablet, Rfl: 1 senna (Senokot) 8.6 MG tablet, Take 2 tablets by mouth at bedtime., Disp: , Rfl: tamsulosin (Flomax) 0.4 MG 24 hr capsule, TAKE 1 CAPSULE BY MOUTH ONCE DAILY ONE-HALF HOUR FOLLOWING THE SAME MEAL EACH DAY, Disp: 90 capsule, Rfl: 1 tiZANidine (Zanaflex) 2 MG tablet, Take 1 tablet (2 mg) by mouth every 6 (six) hours if needed for muscle spasms., Disp: 30 tablet, Rfl: 0 zolpidem (Ambien) 10 MG tablet, TAKE 1 TABLET BY MOUTH NEEDED AT BEDTIME FOR SLEEP, Disp: 30 tablet, Rfl: 1 documented in this encounter Plan of Treatment Upcoming Encounters Date Type Department Care Team (Late st Contact Info) Description 07/18/2025 10:00 AM EDT Office Visit [facility] MEDICINE [address] [place] [phone] Piedad Pacheco MD [address] [place] [phone] 08/25/2025 11:00 AM EST Telemedicine [address] [address] Francy Melara RN documented as of this encounter Visit Diagnoses Diagnosis Long-term current use of opiate analgesic Encounter for long-term (current) use of other medications documented in this encounter Additional Health Concerns Assessment Noted Time PHQ-9 Depression Total Score: 0 10/19/19 25 10:23 AM EST documented as of this encounter Care Teams Rose Grader Relationship Specialty Start Date End Date Piedad Pacheco MD [address] [place] [phone] PCP - General Family Medicine 10/26/20 documented as of this encounter
[2025-06-21 12:40] LABS: Hematocrit 48.5 % (42.0-52.0); Hemoglobin 16.2 g/dl (14.0-18.0); Mean Corpuscular HGB Conc 33.4 g/dl (31.0-36.0); Mean Corpuscular Hemoglobin 29.8 pg (27.0-33.0); Mean Corpuscular Volume 89.2 fL (80.0-98.0); NRBC Abs Auto 0.000 X10*3/uL (0.0-0.012); NRBC Pct Auto 0.0 /100WBC (0.0-0.2); Platelet Count 154 X10*3/uL (160-400); Red Blood Count 5.44 X10*6/uL (4.60-5.80); White Blood Count 6.4 X10*3/uL (4.8-10.8)
[2025-06-21 12:44] LABS: INTERNATIONAL NORM RATIO 0.8 (0.9-1.1); Prothrombin Time 9.1 SEC (10.9-12.4)
[2025-06-21 13:00] LABS: Anion Gap 10 (12-20); Blood Urea Nitrogen 13 mg/dL (9-16); Calcium 9.2 mg/dL (8.4-10.2); Carbon Dioxide 27 mmol/L (22-29); Chloride 108 mmol/L (96-108); Estimated Glomerular Filt Rate > 60; Potassium 4.3 mmol/L (3.3-5.1); Sodium 141 mmol/L (135-145)
--- OUTSIDE RECORDS SUMMARY | 2025-06-21 13:32 | XMS_ITS | Encounter Summary ---
Author Organization [employer] Address [address] [facility] 7t [place] [address] Care Team Providers Care Dry Wall Sprayer Name Role Phone Piedad Pacheco MD Primary Care Provide r Reason for Visit * Reason Onset Date Comments Appointment 12/26/2022 Encounter Details Date Type Department Care Team ([facility] Contact Info) Description 12/26/2022 Telephone [facility] ADULT DENTAL [address] [place], [place] [phone] Ruddy Vazquez DDS [address] [place] [address] Appointment Social History Tobacco Use Types Packs/Day [...] Description 07/18/2025 10:00 AM EDT Office Visit [facility] MEDICINE [address] [place] [address] Piedad Pacheco MD [address] [place] [phone] 08/25/2025 11:00 AM EST Telemedicine [address] [address] Francy Melara RN documented as of this encounter Visit Diagnoses Not on filedocumented in this encounter Care Teams Dry Wall Sprayer Relationship Specialty Start Date End Date Piedad Pacheco MD [address] [place] [phone] PCP - General Family Medicine 10/26/20 documented as of this encounter
--- OUTSIDE RECORDS SUMMARY | 2025-06-21 13:32 | XMS_ITS | Encounter Summary ---
Author Organization [employer] Address [address] [place] [address] [address]t [place] [address] Care Team Providers Care Clipman Name Role Phone Piedad Pacheco MD Primary Care Provide r Reason for Visit * Reason Comments Med Refill Encounter Details Date Type Department Care Team (Late Contact Info) Description 06/08/2023 Refill [facility] MEDICINE [address] [place] [phone] Name, MD Juno [address] [place] [phone] Social History Tobacco Use Types Packs/Day Years [...] Department Care Team (Late Contact Info) Description 07/18/2025 10:00 AM EDT Office Visit [facility] MEDICINE [address] [place] [phone] Piedad Pacheco MD [address] [place] [phone] 08/25/2025 11:00 AM EST Telemedicine [facility] MED[facility] [address] [place] [phone] Francy Melara RN documented as of this encounter Visit Diagnoses Not on filedocumented in this encounter Care Teams Clipman Relationship Specialty Start Date End Date Piedad Pacheco MD [address] [place] [address] PCP - General Family Medicine 10/26/20 documented as of this encounter
--- OUTSIDE RECORDS SUMMARY | 2025-06-21 13:32 | XMS_ITS | Clinical Summary ---
Author Organization [facility] Address [address] [place] [address] Care Team Providers Care Practice Management Consultant Name Role Phone Unknown Primary Care Provider [phone] Allergies No known active allergies Medications oxyCODONE-aceta [...] Zoster (Shingles) Vaccine (1 of 2) 2011 RSV Vaccine 60 years and old er and Patients (1 - Risk 60-74 years 1-dose series) 2021 Influenza Vaccine 05/12/2025 COVID-19 Vaccine (1 - 2024-2 5 season) 2025 Hepatitis B Vaccines Aged Out No long er eligible based on patient's age to complete this topic Insurance MEDICAID OUT [place] [facility] [place] [address] [place] [address] MGD MEDICARE OUT OF NETWORK Care Teams Practice Management Consultant Relationship Specialty Start Date End Date Unknown Unknow Provider Address PCP - General 05/15/17
--- OUTSIDE RECORDS SUMMARY | 2025-06-21 13:32 | XMS_ITS | Encounter Summary ---
Author Organization [employer] Address [address] [facility] 7t [place] [address] Care Team Providers Care What Job Titles Mean Name Role Phone Piedad Pacheco MD Primary Care Provide r Reason for Visit * Reason Onset Date Comments Med Refill 09/26/2024 Encounter Details Date Type Department Care Team ([facility] Contact Info) Description 09/26/2024 Telephone [facility] MEDICINE [address] [place], [place] [phone] Piedad Pacheco MD [address] [place] [address] Med Refill Social History Tobacco Use Types [...] immediate release tablet To be sent to: [facility] [address] [place] [address] documented in this encounter Plan of Treatment Upcoming Encounters Date Type Department Care Team (Late st Contact Info) Description 07/18/2025 10:00 AM EDT Office Visit [facility] MEDICINE [address] [place] [phone] Piedad Pacheco MD [address] [place] [address] 08/25/2025 11:00 AM EST Telemedicine [facility] MED[facility]INE [address] [place] [phone] Francy Melara RN documented as of this encounter Visit Diagnoses Not on filedocumented in this encounter Additional Health Concerns Assessment Noted Time PHQ-9 Depression Total Score: 0 07/14/20 23 11:16 AM EDT documented as of this encounter Care Teams What Job Titles Mean Relationship Specialty Start Date End Date Piedad Pacheco MD [address] [place] [address] PCP - General Family Medicine 10/26/20 documented as of this encounter
--- OUTSIDE RECORDS SUMMARY | 2025-06-21 13:32 | XMS_ITS | Encounter Summary ---
Author Organization [employer] Address [address] [facility] 7t [place] [address] Care Team Providers Care Cake Inspector Name Role Phone Piedad Pacheco MD Primary Care Provide r Encounter Details Date Type Department Care Team (Late st Contact Info) Description 03/31/2023 Orders Only [facility] PEDS [address] [place], [place] [phone] Jen Cortez LPN Social History Tobacco Use [...] Description 07/18/2025 10:00 AM EDT Office Visit [facility] MEDICINE [address] [place] [phone] Piedad Pacheco MD [address] [place] [phone] 08/25/2025 11:00 AM EST Telemedicine [address] [phone] Francy Melara, RN documented as of this encounter Visit Diagnoses Not on filedocumented in this encounter Care Teams Cake Inspector Relationship Specialty Start Date End Date Piedad Pacheco MD [address] [place] [phone] PCP - General Family Medicine 10/26/20 documented as of this encounter
--- OUTSIDE RECORDS SUMMARY | 2025-06-21 13:32 | XMS_ITS | Encounter Summary ---
Author Organization [employer] Address [address] [facility] 7t [place] [address] Care Team Providers Care Cell Tender Helper Name Role Phone Piedad Pacheco MD Primary Care Provide r Reason for Visit * Reason Onset Date Comments Med Refill 08/31/2024 Encounter Details Date Type Department Care Team ([facility] Contact Info) Description 08/31/2024 Telephone [facility] [address] [place], [place] [phone] Piedad Pacheco MD 230 [place] [address] Med Refill Social History Tobacco Use Types [...] immediate release tablet To be sent to: [facility] [address] [place] [address] documented in this encounter Plan of Treatment Upcoming Encounters Date Type Department Care Team (Late st Contact Info) Description 07/18/2025 10:00 AM EDT Office Visit [facility] [address] [place] [address] 28[address] Piedad Pacheco MD [address] [place] [address] 08/25/2025 11:00 AM EST Telemedicine [facility] [address] [place] [address] 61537 Francy Melara RN documented as of this encounter Visit Diagnoses Not on filedocumented in this encounter Additional Health Concerns Assessment Noted Time PHQ-9 Depression Total Score: 0 07/14/20 23 11:16 AM EDT documented as of this encounter Care Teams Cell Tender Helper Relationship Specialty Start Date End Date Piedad Pacheco MD [address] [place] [address]1998 PCP - General Family Medicine 10/26/20 documented as of this encounter
--- OUTSIDE RECORDS SUMMARY | 2025-06-21 13:32 | XMS_ITS | Encounter Summary ---
Author Organization [employer] Address 75 [facility] 7t [place] [address] Care Team Providers Care Quill Cleaner Name Role Phone Piedad Pacheco MD Primary Care Provide r Encounter Details Date Type Department Care Team (Late st Contact Info) Description 01/09/2023 Orders Only [facility] [address] [place], [place] [phone] Jen Cortez LPN Social History Tobacco Use [...] Description 07/18/2025 10:00 AM EDT Office Visit [facility] [address] [place] [address] Piedad Pacheco MD [address] [place] [address] 08/25/2025 11:00 AM EST Telemedicine [address] [phone] Francy Melara, RN documented as of this encounter Visit Diagnoses Not on filedocumented in this encounter Care Teams Quill Cleaner Relationship Specialty Start Date End Date Piedad Pacheco MD [address] [place] [address] 16187 PCP - General Family Medicine 10/26/20 documented as of this encounter
--- OUTSIDE RECORDS SUMMARY | 2025-06-21 13:32 | XMS_ITS | Encounter Summary ---
Author Organization [employer] Address 75 [facility] 7t [place] [address] Care Team Providers Care Museum Technician Name Role Phone Piedad Pacheco MD Primary Care Provide r Encounter Details Date Type Department Care Team (Late st Contact Info) Description 03/03/2023 Orders Only [facility]S [address] [place], [place] [phone] Jen Cortez LPN Social History Tobacco Use [...] Description 07/18/2025 10:00 AM EDT Office Visit [facility] [address] [place] [address] Piedad Pacheco MD [address] [place] [address] 8[address] 08/25/2025 11:00 AM EST Telemedicine [address] [phone] Francy Melara, RN documented as of this encounter Visit Diagnoses Not on filedocumented in this encounter Care Teams Museum Technician Relationship Specialty Start Date End Date Piedad Pacheco MD [address] [place] [address] 12679 PCP - General Family Medicine 10/26/20 documented as of this encounter
--- OUTSIDE RECORDS SUMMARY | 2025-06-21 13:32 | XMS_ITS | Encounter Summary ---
Author Organization [employer] Address [address] [facility] 7t [place] [address] Care Team Providers Care Manager Intern Name Role Phone Piedad Pacheco MD Primary Care Provide r Encounter Details Date Type Department Care Team ([facility] st Contact Info) Description 10/28/[address] [facility] MEDICINE [address] [place], [place] [phone] Piedad Pacheco MD 230 [place], [place] [phone] Social History Tobacco Use Types Packs/Day Years [...] Description 07/18/2025 10:00 AM EDT Office [address] [facility] MED[facility]INE [address] [place] [address] Piedad Pacheco MD [address] [place] [address] 08/25/2025 11:[address] [facility] [address] [place] [address] 256[address] Francy Melara RN documented as of this encounter Visit Diagnoses Not on filedocumented in this encounter Additional Health Concerns Assessment Noted Time PHQ-9 Depression Total Score: 0 10/19/19 25 10:23 AM EST documented as of this encounter Care Teams Manager Intern Relationship Specialty Start Date End Date Piedad Pacheco MD [address] [place] [address] 08486 PCP - General Family Medicine 10/26/20 documented as of this encounter
--- OUTSIDE RECORDS SUMMARY | 2025-06-21 13:32 | XMS_ITS | Encounter Summary ---
Author Organization [employer] Address 75 [facility] 7t [place] [address] Care Team Providers Care Spring Up Supervisor Name Role Phone Piedad Pacheco MD Primary Care Provide r Encounter Details Date Type Department Care Team ([facility] st Contact Info) Description 09/23/2024 Telephone [facility] MEDICINE 230 [place], [place] [phone] Piedad Pacheco MD 230 [place], [place] [phone] Social History Tobacco Use Types Packs/Day Years [...] Description 07/18/2025 10:00 AM EDT Office Visit [facility] MED[facility]INE [address] [place] [address] Piedad Pacheco MD [address] [place] [address] 8[address] 08/25/2025 11:00 AM EST Telemedicine [facility]INE [address] [place] [address] Francy Melara, SLAED documented as of this encounter Visit Diagnoses Not on filedocumented in this encounter Additional Health Concerns Assessment Noted Time PHQ-9 Depression Total Score: 0 07/14/20 23 11:16 AM EDT documented as of this encounter Care Teams Spring Up Supervisor Relationship Specialty Start Date End Date Piedad Pacheco MD [address] [place] [address] 01243 PCP - General Family Medicine 10/26/20 documented as of this encounter
--- OUTSIDE RECORDS SUMMARY | 2025-06-21 13:32 | XMS_ITS | Encounter Summary ---
Author Organization [employer] Address 75 [facility] 7t [place] [address] Care Team Providers Care Ada Accommodation Consultant Name Role Phone Piedad Pacheco MD Primary Care Provide r Encounter Details Date Type Department Care Team (Latest Contact Info) Description 06/19/2025 Travel Social History Tobacco Use Types Packs/Day Years [...] Description 07/18/2025 10:00 AM EDT Office Visit [facility] MEDICINE [address] [place] [address] Piedad Pacheco MD [address] [place] [address] 08/25/2025 11:00 AM EST Telemedicine [facility]INE [address] [place] [address] 8[address] Francy Melara RN documented as of this encounter Visit Diagnoses Not on filedocumented in this encounter Additional Health Concerns Assessment Noted Time PHQ-9 Depression Total Score: 0 10/19/19 25 10:23 AM EST documented as of this encounter Care Teams Ada Accommodation Consultant Relationship Specialty Start Date End Date Piedad Pacheco MD [address] [place] [address] 9[address] PCP - General Family Medicine 10/26/20 documented as of this encounter
--- OUTSIDE RECORDS SUMMARY | 2025-06-21 13:32 | XMS_ITS | Encounter Summary ---
Author Organization [employer] Address 75 [facility] 7t [place] [address] Care Team Providers Care Petroleum Engineer Name Role Phone Piedad Pacheco MD Primary Care Provide r Reason for Visit * Reason Onset Date Comments PT-1 10/28/2024 Encounter Details Date Type Department Care Team ([facility] st Contact Info) Description 10/28/2024 Telephone [facility] MED[facility]INE 230 [place], [place] [phone] Piedad Pacheco MD 230 [place] [address] PT-1 Social History Tobacco Use Types Packs/Day [...] requesting status of PT-1 UPDATED PT-1 INFO [facility] Radiology APPROVED [address] 2x visits a month expires 11/07/25 * Telephone Encounter - Jessi Robison - 11/01/2024 2:47 PM EST Tc from pt requesting status of PT-1 as requesting a callback [phone] * Telephone Encounter - Fox Gaona - 10/28/2024 11:04 AM EST Patient calling requesting PT1 Home Address verified: Y/N: Yes Provider name or facility name: [facility] Escort needed: Y/N: No Do you have a wheelchair: Y/N: Yes If yes- Manual or electric: Electric Scooter Visits: (amount of visits) ( x monthly, weekly, daily) 3 times a month documented in this encounter Plan of Treatment Upcoming Encounters Date Type Department Care Team (Late st Contact Info) Description 07/18/2025 10:00 AM EDT Office Visit [facility] MED[facility] [address] [place] [address] Piedad Pacheco MD [address] [place] [address] 9[address] 08/25/2025 11:00 AM EST Telemedicine [address] [address] Francy Melara RN documented as of this encounter Visit Diagnoses Not on filedocumented in this encounter Additional Health Concerns Assessment Noted Time PHQ-9 Depression Total Score: 0 10/19/19 25 10:23 AM EST documented as of this encounter Care Teams Petroleum Engineer Relationship Specialty Start Date End Date Piedad Pacheco MD [address] [place] [address] 98179 PCP - General Family Medicine 10/26/20 documented as of this encounter
--- OUTSIDE RECORDS SUMMARY | 2025-06-21 13:32 | XMS_ITS | Encounter Summary ---
Author Organization [employer] Address 75 [facility] 7t [place] [address] Care Team Providers Care Tech Intern Name Role Phone Piedad Pacheco MD Primary Care Provide r Encounter Details Date Type Department Care Team ([facility] st Contact Info) Description 09/30/2024 Orders Only [facility] MEDICINE 230 [place], [place] [phone] Piedad Pacheco MD [address] [place] [address] Social History Tobacco Use Types Packs/Day Years [...] Description 07/18/2025 10:00 AM EDT Office Visit [facility] MED[facility]INE [address] [place] [address] 7[address]99 Piedad Pacheco MD [address] [place] [address] 25896 08/25/2025 11:00 AM EST Telemedicine [facility] [address] [place] [address] 30676 Francy Melara, SLADE documented as of this encounter Visit Diagnoses Not on filedocumented in this encounter Additional Health Concerns Assessment Noted Time PHQ-9 Depression Total Score: 0 07/14/20 23 11:16 AM EDT documented as of this encounter Care Teams Tech Intern Relationship Specialty Start Date End Date Piedad Pacheco MD [address] [place] [address] 61063 PCP - General Family Medicine 10/26/20 documented as of this encounter
--- OUTSIDE RECORDS SUMMARY | 2025-06-21 13:32 | XMS_ITS | Encounter Summary ---
Author Organization [employer] Address 75 [facility] 7t [place] [address] Care Team Providers Care Software Manager Name Role Phone Piedad Pacheco MD Primary Care Provide r Reason for Visit * Reason Onset Date Comments Med Refill 03/10/2025 Encounter Details Date Type Department Care Team ([facility] Contact Info) Description 03/10/2025 Telephone [facility] MEDICINE 230 [place] [address] Piedad Pacheco MD 230 [place] [address] Med Refill Social History Tobacco Use Types [...] Telephone Encounter - Jen Cortez LPN - 03/10/2025 2:36 PM EDT Medication was sent to [facility][id number] on 02/06/25 #30 with 1 refill. * Telephone Encounter - Jessi Robison - 03/10/2025 2:33 PM EDT TC from pt requesting medication refill. Medications needing refill : zolpidem (Ambien) 10 MG tablet To be sent to: [facility] [address] [place] [address] documented in this encounter Plan of Treatment Upcoming Encounters Date Type Department Care Team (Late st Contact Info) Description 07/18/2025 10:00 AM EDT Office Visit [facility] MEDICINE [address] [place] [address] Piedad Pacheco MD [address] [place] [address] 675[address] 08/25/2025 11:00 AM EST Telemedicine [facility] MEDICINE 230 [place], [place] [phone] Francy Melara RN documented as of this encounter Visit Diagnoses Not on filedocumented in this encounter Additional Health Concerns Assessment Noted Time PHQ-9 Depression Total Score: 0 10/19/19 25 10:23 AM EST documented as of this encounter Care Teams Software Manager Relationship Specialty Start Date End Date Piedad Pacheco MD [address] [place] [address]351 PCP - General Family Medicine 10/26/20 documented as of this encounter
--- OUTSIDE RECORDS SUMMARY | 2025-06-21 13:32 | XMS_ITS | Encounter Summary ---
Author Organization [employer] Address 75 [facility] 7t [place] [address] Care Team Providers Care Agricultural Education Teacher Name Role Phone Piedad Pacheco MD Primary Care Provide r Encounter Details Date Type Department Care Team ([facility] st Contact Info) Description 11/22/[address] [facility] MEDICINE 230 [place], [place] [phone] Piedad Pacheco MD 230 [place], [place] [phone] Social History Tobacco Use Types Packs/Day Years [...] Description 07/18/2025 10:00 AM EDT Office Visit [facility] MEDICINE [address] [place] [phone] Piedad Pacheco MD [address] [place] [address] 08/25/2025 11:00 AM EST Telemedicine [facility] MEDICINE [address] [place] [address] 89995 Francy Melara RN documented as of this encounter Visit Diagnoses Not on filedocumented in this encounter Additional Health Concerns Assessment Noted Time PHQ-9 Depression Total Score: 0 10/19/19 25 10:23 AM EST documented as of this encounter Care Teams Agricultural Education Teacher Relationship Specialty Start Date End Date Piedad Pacheco MD [address] [place] [address] 76334 PCP - General Family Medicine 10/26/20 documented as of this encounter
--- OUTSIDE RECORDS SUMMARY | 2025-06-21 13:32 | XMS_ITS | Encounter Summary ---
Author Organization [employer] Address 75 [facility] 7t [place] [address] Care Team Providers Care Dry House Worker Name Role Phone Piedad Pacheco MD Primary Care Provide r Reason for Visit * Reason Onset Date Comments callback requested 09/12/2024 Encounter Details Date Type Department Care Team ([facility] Contact Info) Description 09/12/2024 Telephone [facility] MEDICINE 230 [place] [address] Piedad Pacheco MD 230 [place] [address] callback requested Social History Tobacco Use Types [...] 09/12/2024 2:06 PM EST Tc from [place] ([facility]) requesting a callback from PCP or [place] in regards pt (no further info discussed) Callback number [phone] documented in this encounter Plan of Treatment Upcoming Encounters Date Type Department Care Team (Late st Contact Info) Description 07/18/2025 10:00 AM EDT Office Visit [facility] MEDICINE [address] [place] [address] Piedad Pacheco MD [address] [place] [address] 08/25/2025 11:00 AM EST Telemedicine [facility] MED[facility] [address] [place] [address] Francy Melara, SLADE documented as of this encounter Visit Diagnoses Not on filedocumented in this encounter Additional Health Concerns Assessment Noted Time PHQ-9 Depression Total Score: 0 07/14/20 23 11:16 AM EDT documented as of this encounter Care Teams Dry House Worker Relationship Specialty Start Date End Date Piedad Pacheco MD [address] [place] [address]29 PCP - General Family Medicine 10/26/20 documented as of this encounter
--- OUTSIDE RECORDS SUMMARY | 2025-06-21 13:32 | XMS_ITS | Encounter Summary ---
Author Organization [employer] Address 75 [facility] 7t [place] [address] Care Team Providers Care Ball Winder Name Role Phone Piedad Pacheco MD Primary Care Provide r Reason for Visit * Reason Onset Date Comments Pt1 09/28/2024 Encounter Details Date Type Department Care Team ([facility] Contact Info) Description 09/28/2024 Telephone [facility] MEDICINE 230 [place], [place] [phone] Piedad Pacheco MD 230 [place] [address] Pt1 Social History Tobacco Use Types Packs/Day [...] or facility name: Urology Facility Address: [address] [facility] Escort needed: Y/N: Yes Do you have a wheelchair: Y/N: Yes If yes- Manual or electric: Electric Visits: 1 x 3 months Patient calling requesting PT1 Home Address verified: Y/N: Yes Provider name or facility name: [facility] Address: [address] [place] [address] Escort needed: Y/N: Yes Do you have [...] 10:00 AM EDT Office Visit [facility] MEDICINE [address] [place] [address] Piedad Pacheco MD 230 [place] [address] 08/25/2025 11:00 AM EST Telemedicine [facility] MEDICINE [address] [place] [address] 024[address] Francy Melara RN documented as of this encounter Visit Diagnoses Not on filedocumented in this encounter Additional Health Concerns Assessment Noted Time PHQ-9 Depression Total Score: 0 07/14/20 23 11:16 AM EDT documented as of this encounter Care Teams Ball Winder Relationship Specialty Start Date End Date Piedad Pacheco MD [address] [place] [address]29 PCP - General Family Medicine 10/26/20 documented as of this encounter
--- OUTSIDE RECORDS SUMMARY | 2025-06-21 13:32 | XMS_ITS | Encounter Summary ---
Author Organization [employer] Address [address] [facility] 7t [place] [address] Care Team Providers Care Pipe Line Repairer Name Role Phone Piedad Pacheco MD Primary Care Provide r Reason for Visit * Reason Onset Date Comments Medication Question 06/26/2023 Encounter Details Date Type Department Care Team ([facility] Contact Info) Description 06/26/2023 Telephone [facility]INE 230 [place], [place] [phone] Piedad Pacheco MD 230 [place] [address] Medication Question Social History Tobacco Use Types [...] - 06/26/2023 10:13 AM EDT Tc from [facility] requesting a call from a nurse to speak about medication oxyCODONE (Roxicodone) 10 MG immediate release tablet. Pharmacy would like to know the chronic pain pt is having and why script is being receive with 7 days. Please contact Pharmacy at [phone] documented in this encounter Plan of Treatment Upcoming Encounters Date Type Department Care Team (Late st Contact Info) Description 07/18/2025 10:00 AM EDT Office Visit [facility] MEDICINE [address] [place] [address] Piedad Pacheco MD [address] [place] [address] 08/25/2025 11:00 AM EST Telemedicine [address] [address] Francy Melara, SLADE documented as of this encounter Visit Diagnoses Not on filedocumented in this encounter Additional Health Concerns Assessment Noted Time PHQ-9 Depression Total Score: 0 06/19/20 23 1:27 PM EDT documented as of this encounter Care Teams Pipe Line Repairer Relationship Specialty Start Date End Date Piedad Pacheco MD [address] [place] [address] PCP - General Family Medicine 10/26/20 documented as of this encounter
--- OUTSIDE RECORDS SUMMARY | 2025-06-21 13:32 | XMS_ITS | Encounter Summary ---
Author Organization [employer] Address 75 [facility] 7t [place] [address] Care Team Providers Care Electron Gun Inspector Name Role Phone Piedad Pacheco MD Primary Care Provide r Reason for Visit * Reason Onset Date Comments Med Refill 10/28/2024 Encounter Details Date Type Department Care Team ([facility] st Contact Info) Description 10/28/2024 Telephone [facility] MEDICINE 230 [place] [address] Piedad Pacheco MD 230 [place] [address] Med Refill Social History Tobacco Use Types [...] 3:19 PM EST Medication was sent to [place] [id number] on 10/20/24. * Telephone Encounter - Marguerite Irvin - 10/28/2024 3:17 PM EST TC from pt requesting medication refill. Medications needing refill : loratadine (Claritin) 10 MG tablet To be sent to: [facility] [address] [place] [address] documented in this encounter Plan of Treatment Upcoming Encounters Date Type Department Care Team (Late st Contact Info) Description 07/18/2025 10:00 AM EDT Office Visit [facility] MEDICINE [address] [place] [address] Piedad Pacheco MD 230 [place] [address] 08/25/2025 11:00 AM EST Telemedicine [facility] MED[facility]INE [address] [place] [address] Francy Melara RN documented as of this encounter Visit Diagnoses Not on filedocumented in this encounter Additional Health Concerns Assessment Noted Time PHQ-9 Depression Total Score: 0 10/19/19 25 10:23 AM EST documented as of this encounter Care Teams Electron Gun Inspector Relationship Specialty Start Date End Date Piedad Pacheco MD [address] [place] [address] PCP - General Family Medicine 10/26/20 documented as of this encounter
--- OUTSIDE RECORDS SUMMARY | 2025-06-21 13:32 | XMS_ITS | Encounter Summary ---
Author Organization [employer] Address 75 [facility] 7t [place] [address] Care Team Providers Care Mural Artist Name Role Phone Piedad Pacheco MD Primary Care Provide r Encounter Details Date Type Department Care Team (Late st Contact Info) Description 01/28/2023 Orders Only [facility] MED & PEDS [address] [place], [place] [phone] Jen Cortez LPN Social History Tobacco Use [...] Description 07/18/2025 10:00 AM EDT Office Visit [facility] MEDICINE [address] [place] [address] Piedad Pacheco MD [address] [place] [address] 08/25/2025 11:00 AM EST Telemedicine [address] [phone] Francy Melara, RN documented as of this encounter Visit Diagnoses Not on filedocumented in this encounter Care Teams Mural Artist Relationship Specialty Start Date End Date Piedad Pacheco MD [address] [place] [address] PCP - General Family Medicine 10/26/20 documented as of this encounter
--- OUTSIDE RECORDS SUMMARY | 2025-06-21 13:33 | XMS_ITS | Encounter Summary ---
Author Organization [employer] Address [address] [facility] 7t [place] [address] Care Team Providers Care Ophthalmic Surgical Assistant Name Role Phone Piedad Pacheco MD Primary Care Provide r Reason for Visit * Reason Onset Date Comments Med Refill 12/09/2023 Encounter Details Date Type Department Care Team ([facility] st Contact Info) Description 12/09/2023 Telephone [facility] [address] [place], [place] [phone] Piedad Pacheco MD [address] [place] [phone] Med Refill Social History Tobacco Use Types [...] 10 MG tablet To be sent to: [facility] [address] [place] [address] documented in this encounter Plan of Treatment Upcoming Encounters Date Type Department Care Team (Late st Contact Info) Description 07/18/2025 10:00 AM EDT Office Visit [facility] [address] [place] [phone] Piedad Pacheco MD [address] [place] [address] [phone] 08/25/2025 11:00 AM EST Telemedicine [facility] [address] [place] [address] [phone] Francy Melara RN documented as of this encounter Visit Diagnoses Not on filedocumented in this encounter Additional Health Concerns Assessment Noted Time PHQ-9 Depression Total Score: 0 07/14/20 23 11:16 AM EDT documented as of this encounter Care Teams Ophthalmic Surgical Assistant Relationship Specialty Start Date End Date Piedad Pacheco MD [address] [place] [address] PCP - General Family Medicine 10/26/20 documented as of this encounter
--- OUTSIDE RECORDS SUMMARY | 2025-06-21 13:33 | XMS_ITS | Encounter Summary ---
Author Organization [employer] Address [address] [facility] 7t [place] [address] Care Team Providers Care Field Representative Name Role Phone Piedad Pacheco MD Primary Care Provide r Encounter Details Date Type Department Care Team (Late st Contact Info) Description 11/07/[address] [facility] [address] [place], [place] [phone] Jen Cortez LPN Social History Tobacco Use [...] 07/18/2025 10:00 AM EDT Office [address] [facility] [address] [place] [phone] Piedad Pacheco MD [address] [place] [phone] 08/25/2025 11:00 AM EST Telemedicine [address] [phone] Francy Melara, RN documented as of this encounter Visit Diagnoses Not on filedocumented in this encounter Care Teams Field Representative Relationship Specialty Start Date End Date Piedad Pacheco MD [address] [place] [phone] PCP - General Family Medicine 10/26/20 documented as of this encounter
--- OUTSIDE RECORDS SUMMARY | 2025-06-21 13:33 | XMS_ITS | Encounter Summary ---
Author Organization [employer] Address [address] [facility] 7t [place] [address] Care Team Providers Care Terminal Supervisor Name Role Phone Piedad Pacheco MD Primary Care Provide r Encounter Details Date Type Department Care Team ([facility] st Contact Info) Description 09/15/2023 Telephone [facility] [address] [place], [place] [phone] Piedad Pacheco MD [address] [place], [place] [phone] Social History Tobacco Use Types Packs/Day Years [...] Description 07/18/2025 10:00 AM EDT Office Visit [facility] [address] [place] [phone] Piedad Pacheco MD [address] [place] [phone] 08/25/2025 11:00 AM EST Telemedicine [facility] [address] [place] [phone] Francy Melara, SLADE documented as of this encounter Visit Diagnoses Not on filedocumented in this encounter Additional Health Concerns Assessment Noted Time PHQ-9 Depression Total Score: 0 07/14/20 23 11:16 AM EDT documented as of this encounter Care Teams Terminal Supervisor Relationship Specialty Start Date End Date Piedad Pacheco MD [address] [place] [phone] PCP - General Family Medicine 10/26/20 documented as of this encounter
--- OUTSIDE RECORDS SUMMARY | 2025-06-21 13:33 | XMS_ITS | Encounter Summary ---
Author Organization [employer] Address [address] [facility] 7t [place] [address] Care Team Providers Care Accounting Officer Name Role Phone Piedad Pacheco MD Primary Care Provide r Reason for Visit * Reason Comments Med Refill Encounter Details Date Type Department Care Team ([facility] st Contact Info) Description 02/12/2024 Refill [facility] [address] [place], [place] [phone] Piedad Pacheco MD [address] [place] [address] Insomnia, unspecified type Social History Tobacco Use [...] Description 07/18/2025 10:00 AM EDT Office Visit [facility] [address] [place] [phone] Piedad Pacheco MD [address] [place] [phone] 08/25/2025 11:00 AM EST Telemedicine [address] [phone] Francy Melara, SLADE documented as of this encounter Visit Diagnoses Diagnosis Insomnia, unspecified type documented in this encounter Additional Health Concerns Assessment Noted Time PHQ-9 Depression Total Score: 0 07/14/20 23 11:16 AM EDT documented as of this encounter Care Teams Accounting Officer Relationship Specialty Start Date End Date Piedad Pacheco MD [address] [place] [phone] PCP - General Family Medicine 10/26/20 documented as of this encounter
--- OUTSIDE RECORDS SUMMARY | 2025-06-21 13:33 | XMS_ITS | Clinical Summary ---
Author Organization [employer] Address [address] [place] [address] Care Team Providers Care Paper Gluing Operator Name Role Phone Piedad Pacheco MD [...] 2 tablets by mouth at bedtime. Active Blood Glucose Monitoring Suppl (FreeStyle [place] Lite) w/Device kitIndications:T ype 2 diabetes mellitus with hyperglycemia, without long-term current use of insulin ([facility]) Use to test blood sugar 2 times daily 1 kit 024 Active Lancets miscIndications: Type 2 diabetes mellitus with hyperglycemia, without long-term current use of insulin ([facility]) Use to test blood sugar 2 times daily 100 each 2 024 Active Alcohol Swabs 70 % padsIndications: Type 2 diabetes mellitus with hyperglycemia, without long-term current use of insulin ([facility]) Use to test blood sugar 2 times daily 100 each 2 Active hydrOXYzine pamoate (Vistaril) 50 MG capsule [...] clopidogrel (Plavix) 75 MG tabletIndication s:Ischemic stroke ([facility]) TAKE 1 TABLET BY MOUTH EVERY DAY 30 tablet 025 Active rOPINIRole (Requip) 2 MG tabletIndication s:Restless Leg Syndrome TAKE 1 TABLET BY MOUTH THREE TIMES DAILY 270 tablet 1 025 Active Farxiga 10 MGIndications:Ty pe 2 diabetes mellitus with hyperglycemia, without long-term current use of insulin ([facility]) TAKE 1 TABLET BY MOUTH EVERY DAY 90 tablet 1 025 Active atorvastatin (Lipitor) 80 MG tabletIndication s:Ischemic stroke ([facility]) Take 1 tablet (80 mg) by mouth at bedtime. 90 tablet 025 Active metFORMIN (Glucophage) 500 MG tabletIndication s:Type 2 diabetes mellitus with hyperglycemia, without long-term current use of insulin ([facility]) TAKE 1 TABLET BY MOUTH WITH BREAKFAST AND EVENING MEAL 180 tablet 2 025 Active famotidine (Pepcid) 20 MG tablet TAKE 1 TABLET BY MOUTH TWICE DAILY 180 tablet 025 Active aspirin (EQ Aspirin Adult Low Dose) 81 MG EC tabletIndication s:Ischemic stroke ([facility]) TAKE 1 TABLET BY MOUTH EVERY DAY 90 tablet 025 Active Cialis 20 MG tablet TAKE 1 TABLET BY MOUTH 45 MINUTES BEFORE SEXUAL ACTIVITY DIRECTED 10 tablet 025 Active oxyCODONE (Roxicodone) 5 MG immediate release tabletIndication s:Lumbar radiculopathy Take 1 tablet (5 mg) by mouth every 8 (eight) hours if needed for severe pain for up to 28 days. Do not start before June 23, 2025. 84 tablet 025 2024 Active zolpidem (Ambien) 10 MG tabletIndication s:Insomnia, unspecified type TAKE 1 TABLET BY MOUTH NEEDED AT BEDTIME FOR SLEEP 30 tablet 1 025 Active zolpidem (Ambien) 10 MG tabletIndication s:Insomnia, unspecified type TAKE 1 TABLET BY MOUTH NEEDED AT BEDTIME FOR SLEEP 30 tablet 1 025 2024 Discontinued(R eorder (will not trigger notification to Pharmacy)) oxyCODONE (Roxicodone) 5 MG immediate release tabletIndication s:Lumbar radiculopathy Take 1 tablet (5 mg) by mouth every 8 (eight) hours if needed for severe pain for up to 5 days. 15 tablet 025 2024 Discontinued(R eorder (will not trigger notification to Pharmacy)) oxyCODONE (Roxicodone) 5 MG immediate release tabletIndication s:Lumbar radiculopathy Take 1 tablet (5 mg) by mouth every 8 (eight) hours if needed for severe pain for up to 3 days. 9 tablet 025 2024 Discontinued(R eorder (will not trigger notification to Pharmacy)) oxyCODONE (Roxicodone) 5 MG immediate release tabletIndication s:Lumbar radiculopathy Take 1 tablet (5 mg) by mouth every 8 (eight) hours if needed for severe pain for up to 14 days. 42 tablet 025 2024 Discontinued(R eorder (will not trigger notification to Pharmacy)) oxyCODONE (Roxicodone) 5 MG immediate release tabletIndication s:Lumbar radiculopathy Take 1 tablet (5 mg) by mouth every 8 (eight) hours if needed for severe pain for up to 7 days. 21 tablet 025 2024 Discontinued(R eorder (will not trigger notification to Pharmacy)) Active Problems Problem Noted Date Diagnosed Date Hemiparesis affecting right side as late effect of cerebrovascular accident 05/22/2025 Long-term current use of opiate analgesic 2024 Cardiomyopathy 12/27/2024 Assessment & Plan (12/27/2024 12:30 [...] Encounters Date Type Department Care Team Description 06/21/2025 Orders Only GENERIC EXTERNAL DATA DEPARTMENT Provider, Generic External Data 06/20/2025 Refill [facility] [address] [place] [address] Piedad Pacheco MD Insomnia, unspecified type 06/19/2025 9:30 AM EDT Telemedicine [facility] [address] [place] [address] Francy Melara, RN Long-term current use of opiate analgesic 06/19/2025 Refill [facility] [address] [place] [address] Francy Melara, RN Lumbar radiculopathy 06/19/2025 Travel 06/15/2025 10:30 AM EDT Office Visit [facility] [address] [place] [address] Tanya Garcia MD Chronic midline low back pain without sciatica (Primary Dx) 06/15/2025 Refill [facility] [address] [place] [address] Piedad Pacheco MD Lumbar radiculopathy 06/15/2025 Travel 06/07/2025 Telephone [facility] [address] [place] [address] Francy Melara, [employer] OPERATOR Tele today 05/31/2025 Refill [facility] [address] [place] [address] Piedad Pacheco MD Lumbar radiculopathy 05/31/2025 Telephone [facility] [address] [place] [address] JhonatanShanika, OD 05/25/2025 Refill [facility] [address] [place] [address] Piedad Pacheco MD Lumbar radiculopathy 05/22/2025 Orders Only [facility] [address] [place] [address] Piedad Pacheco MD Hemiparesis affecting right side as late effect of cerebrovascular accident (CMS/HCC) (Primary Dx) 05/19/2025 Telephone [facility] [address] [place] [address] Piedad Pacheco MD Referral 05/19/2025 Telephone [facility] [address] [place] [address] Piedad Pacheco MD Med Refill 05/18/2025 Refill [facility] [address] [place] [address] Piedad Pacheco MD Lumbar radiculopathy 05/12/2025 Refill [facility] [address] [place] [address] Piedad Pacheco MD 05/12/2025 Orders Only GENERIC EXTERNAL DATA DEPARTMENT Provider, Generic External Data 05/05/2025 Refill [facility] [address] [place] [address] Piedad Pacheco MD Lumbar radiculopathy 05/05/2025 Refill [facility] [address] [place] [address] Piedad Pacheco MD Ischemic stroke ([facility]) 05/01/2025 Telephone [facility] [address] [place] [address] Piedad Pacheco MD Med Refill 04/27/2025 Telephone [facility] [address] [place] [address] Piedad Pacheco MD Insurance 04/26/2025 Refill [facility] [address] [place] [address] Piedad Pacheco MD 04/25/2025 10:45 AM EDT Office Visit [facility] [address] [place] [phone] Tanya Garcia MD Chronic midline low back pain without sciatica (Primary Dx) 04/25/2025 Travel 04/24/2025 Patient Outreach [facility] [address] [place] [phone] Piedad Pacheco MD Care Coordination ([facility] outreach for SDOH PT-1 and food needs-referral completed /) 04/24/2025 Telephone [facility] [address] [place] [phone] Piedad Pacheco MD PT-1 04/24/2025 Telephone [facility] [address] [place] [phone] Piedad Pacheco MD Med Refill 04/20/2025 11:00 AM EDT Office Visit [facility] [address] [place] [phone] Tanya Garcia MD Chronic midline low back pain without sciatica (Primary Dx) 04/20/2025 Orders Only [facility] [address] [place] [phone] Piedad Pacheco MD Chronic midline low back pain without sciatica (Primary Dx); Lumbar radiculopathy 04/20/2025 Telephone [facility] [address] [place] [address] Piedad Pacheco MD Nurse Triage 04/20/2025 Travel 04/18/2025 11:00 AM EDT Office Visit [facility] [address] [place] [address] Tanya Garcia MD Chronic midline low back pain without sciatica (Primary Dx) 04/18/2025 Travel 04/18/2025 Refill [facility] [address] [place] [address] Piedad Pacheco MD 04/17/2025 Telephone [facility] [address] [place] [address] Rebeca Rose RN NTTS f/up 04/17/2025 Telephone [facility] [address] [place] [address] Piedad Pacheco MD Referral 04/17/2025 Refill [facility] [address] [place] [address] Piedad Pacheco MD Lumbar radiculopathy 04/17/2025 Refill [facility] [address] [place] [address] Piedad Pacheco MD Insomnia, unspecified type 04/04/2025 Telephone [facility] [address] [place] [address] Piedad Pacheco MD 03/27/2025 Telephone [facility] [address] [place] [address] Piedad Pacheco MD Nurse Triage 03/27/2025 Refill [facility] [address] [place] [address] Piedad Pacheco MD Type 2 diabetes mellitus with hyperglycemia, without long-term current use of insulin ([facility]) 03/27/2025 Telephone [facility] [address] [place] [address] Piedad Pacheco MD Referral 03/27/2025 Refill [facility] [address] [place] [address] Piedad Pacheco MD Lumbar radiculopathy 03/23/2025 Orders Only GENERIC EXTERNAL DATA DEPARTMENT Provider, Generic External Data 03/21/2025 10:30 AM EDT Office Visit [facility] [address] [place] [address] Tanya Garcia MD Chronic midline low back pain without sciatica (Primary Dx) 03/21/2025 Travel from Last 3 Months Immunizations Immunization [...] 105 12/27/2024 11:56 AM EDT Temperature 36.6 C (97.8 F) 12/27/2024 11:56 AM EDT Respiratory Rate 20 12/27/2024 11:56 AM EDT [...] EDT Office Visit [facility] [address] [place] [phone] Piedad Pacheco MD [address] [place] [phone] 08/25/2025 11:00 AM EST Telemedicine [facility] [address] [place] [phone] Francy Melara, RN Health Maintenance Due Date Last Done Comments CT Colonography 1961 Colonoscopy 1961 FIT 1961 Sigmoidoscopy 1961 Disability Screening 1961 Diabetes: [...] 07/02/2021 Dental Oral Exam 02/07/2023 08/08/2022, 07/02/2021 FOBT 09/11/2023 09/11/2022 Dental X-Ray: Full Mouth 11/15/2024 11/14/2021, 06/13 Diabetes: Hemoglobin A1C 04/18/2025 025, 04/26/2024, 12/16/2023, Additional history exists COVID-19 Vaccine ( season) 2025 Influenza Vaccine (#1) 2025 , 08/29/2019, 07/23/2017 Lipid Panel 08/08/2025 08/08/2024, 12/10, 07/06/2020 Colorectal Cancer Screening 09/11/2025 FIT DNA/Cologuard 09/11/2025 09/11/2022 Alcohol/Substance Use Screening 10/19/2025 10/19/2024 Depression Screening 10/19/2025 10/19/2024, 10/19/19 SDOH Screening 10/19/2025 10/19/2024 Tobacco Screening 03/07/2026 03/07/2025 Eye Exam 12/15/2026 12/15/2024, 11/13, 12/01/2024, Additional [...] Associated Diagnosis Comments BASIC METABOLIC PANEL Routine 06/21/2025 11:22 AM EDT PROTHROMBIN TIME-INR Routine 06/21/2025 11:22 AM EDT CBC Routine 06/21/2025 11:22 AM EDT BASIC METABOLIC PANEL Routine 05/12/2025 1:38 PM EDT COVID-19 ID NOW ([facility]ARL) Routine 03/23/2025 3:43 PM EDT URINALYSIS, COMPLETE, WITH REFLEX TO CULTURE Routine 03/23/2025 1:32 PM EDT SED RATE BY MODIFIED WESTERGREN Routine 03/23/2025 12:56 PM EDT C-REACTIVE PROTEIN Routine 03/23/2025 12 :56 PM EDT COMPREHENSIVE METABOLIC PANEL Routine 03/23/2025 12:56 PM EDT CBC WITH AUTO DIFFERENTIAL Routine 03/23/2025 12:56 PM EDT CULTURE, URINE, ROUTINE Routine 03/23/2025 12:00 AM EDT AMB REFERRAL TO OPHTHALMOLOGY Routine 12/15/2024 [...] Relevant to Health Maintenance Results * (ABNORMAL) Prothrombin Time-INR (06/21/2025 11:22 AM EDT) Prothrombin Time 9.1(L) 10.9 - 12.4 SEC [facility] INTERNATIONAL NORM RATIO 0.8(L) 0.9 - 1.1 [facility] Comment:INTERNATIONAL NORMAL IZED RATIO (INR) REFERENCE RANGES Reference RangeFor patients not on anticoagulant therapy: 0.9 - 1.1INR ranges for oral anticoagulanttherapy:For prevention and treatment of venous thrombosis and pulmonary embolism: 2.0 - 3.0For acute myocardial infarction with aspirin therapy: 2.0 - 3.0For acute myocardial infarction without aspirin therapy: 3.0 - 4.0For patients with mechanical prosthetic heart valves: 2.5 - 3.5 06/21/2025 11:2 2 AM EDT 06/21/2025 11:22 AM EDT us Generic External Data Provider LAB BLOOD ORDERAB LES Final Result Performing Organization Address City/State/[facility] Co de Phone Number [facility] [address] [place] [phone] * (ABNORMAL) CBC (06/21/2025 11:22 AM EDT) White Blood Count 6.4 4.8 - 10.8 X10*3/uL [facility] Red Blood Count 5.44 4.60 - 5.80 X10*6/uL [facility] Hemoglobin 16.2 14.0 - 18.0 g/dl [facility] Hematocrit 48.5 42.0 - 52.0 % [facility] Mean Corpuscular Volume 89.2 80.0 - 98.0 fL [facility] Mean Corpuscular Hemoglobin 29.8 27.0 - 33.0 pg [facility] Mean Corpuscular HGB Conc 33.4 31.0 - 36.0 g/dl [facility] Red Cell Distribution Width 12.4 11.0 - 16.0 % [facility] Platelet Count 154(L) 160 - 400 X10*3/uL [facility] Mean Platelet Volume 10.6 9.4 - 12.4 fL [facility] NRBC Pct Auto 0.0 0.0 - 0.2 /100WBC [facility] NRBC Abs Auto 0.000 0.0 - 0.012 X10*3/uL [facility] 06/21/2025 11:2 2 AM EDT 06/21/2025 11:22 AM EDT us Generic External Data Provider LAB BLOOD ORDERAB LES Final Result Performing Organization Address [facility] Co de Phone Number [facility] [address] [place] [address] [phone] * (ABNORMAL) Basic Metabolic Panel (06/21/2025 11:22 AM EDT) Only the most recent of2 resultswithin the time period is included. Sodium 141 135 - 145 mmol/L [facility] Potassium 4.3 3.3 - 5.1 mmol/L [facility] Chloride 108 96 - 108 mmol/L [facility] Carbon Dioxide 27 22 - 29 mmol/L [facility] Anion Gap 10(L) 12 - 20 [facility] Urea Nitrogen (BUN) 13 9 - 16 mg/dL [facility] Creatinine, Serum 1.02 0.5 - 1.4 mg/dL [facility] Estimated Glomerular Filt Rate >60 [facility] Comment:Chronic Kidney Disea se: Estimated GFR < 60 mL/min/[id number] Kidney Disease: Estimated GFR < 15 mL/min/1.73m2 Glucose 157(H) 60 - 115 mg/dL [facility] Calcium 9.2 8.4 - 10.2 mg/dL [facility] 06/21/2025 11:2 2 AM EDT 06/21/2025 11:22 AM EDT Generic External Data Provider LAB BLOOD ORDERAB LES Final Result Performing Organization Address [facility] Co de Phone Number [facility] [address] [place] [phone] [phone] * COVID-19 ID NOW ([facility]) (03/23/2025 3:43 PM EDT) IDNOW SERIAL# [id number] [facility] COVID-19 TEST Negative Negative [facility] COVID-19 NOTE See Note [facility] Comment: Results are for the identification of SARS-CoV2 RNA. TheSARS-CoV2 RNA is generally detectable in respiratory samplesduring the acute phase of infection. Positive results areindicative of the presence of SARS-CoV-2 RNA; clinicalcorrelation with patient history and other diagnosticinformation is necessary to determine patient infectionstatus. Positive results do not rule out bacterial infectionor co- infection with other viruses.Testing facilities within the [facility] and [facility] are required to report all positive results tothe appropriate public health authorities.Negative results should be treated as presumptive and, ifinconsistent with clinical signs and symptoms or necessaryfor patient management, should be tested with differentauthorized or cleared molecular tests. Negative results donot preclude SARS-CoV2 RNA infection and should not be usedas the sole basis for patient management decisions. Negativeresults should be considered in the context of a patient'srecent exposures, history and the presence of clinical signsand symptoms consistent with COVID-19.This test has been authorized by the FDA under an EmergencyUse Authorization (EUA) for use by authorized laboratories.Testing performed on the [employer] NOW utilizing NAAT. 03/23/2025 3:43 PM EDT 03/23/2025 3:46 PM EDT us Generic External Data Provider LAB MOLECULAR LAURA [employer] ORDERABLES Final Result [facility] [address] [place] [phone] * (ABNORMAL) Urinalysis, Complete, with Reflex to Culture (03/23/2025 1:32 PM EDT) Color Urine Yellow [facility] Appearance Urine Clear [facility] PH 5.5 5.0 - 9.0 [facility] Glucose Urine UA >=1000(A) Negative mg/dL [facility] Urine Blood Negative Negative [facility] Specific [place] - Urine >=1.030(H) 1.005 - 1.025 [facility] Urine Protein Trace Neg-Trace mg/dL [facility] Urine Ketones Trace Negative mg/dL [facility] Nitrite Urine Negative Negative [facility] Leukocyte Esterase Urine Small (1+)(A) Negative [facility] RBC Urine 0-2 0 - 2 /HPF [facility] Urine WBC 21-50(A) 0 - 5 /HPF [facility] Urine Squamous Epithelial Cell 3-5 0 - 2 /HPF [facility] Urine Bacteria None Seen None Seen [facility] Hyaline Casts, Urine 0-2 0 - 2 /LPF [facility] 03/23/2025 1:32 PM EDT 03/23/2025 1:37 PM EDT Narrative [facility] - 03/23/2025 1:47 PM EDT [id number], [employer] us Generic External Data Provider LAB URINE ORDERAB LES Final Result [facility] [address] [place] [phone] * (ABNORMAL) CBC auto differential (03/23/2025 12:56 PM EDT) White Blood Count 7.6 4.8 - 10.8 X10*3/uL [facility] Red Blood Count 5.44 4.60 - 5.80 X10*6/uL [facility] Hemoglobin 16.5 14.0 - 18.0 g/dl [facility] Hematocrit 48.3 42.0 - 52.0 % [facility] Mean Corpuscular Volume 88.8 80.0 - 98.0 fL [facility] Mean Corpuscular Hemoglobin 30.3 27.0 - 33.0 pg [facility] Mean Corpuscular HGB Conc 34.2 31.0 - 36.0 g/dl [facility] Red Cell Distribution Width 12.2 11.0 - 16.0 % [facility] Platelet Count 153(L) 160 - 400 X10*3/uL [facility] Mean Platelet Volume 9.9 9.4 - 12.4 fL [facility] Neutrophils Percent Auto 67.3 45 - 73 % [facility] Imm Gran Pct Auto 0.3 0.0 - 0.4 % [facility] Lymphocytes Percent Auto 25.7 20 - 40 % [facility] Monocytes Percent Auto 5.4 2 - 11 % [facility] Eosinophils Percent Auto 0.8 0 - 4 % [facility] Basophils Percent Auto 0.5 0 - 2 % [facility] NRBC Pct Auto 0.0 0.0 - 0.2 /100WBC [facility] Neutrophils Absolute Auto 5.1 2.0 - 8.3 x10*3/uL [facility] Imm Gran Abs Auto 0.02 0.00 - 0.03 X10*3/uL [facility] Lymphocytes Absolute Auto 2.0 1.2 - 4.9 X10*3/uL [facility] Monocytes Absolute Auto 0.4 0.1 - 1.2 X10*3/uL [facility] Eosinophils Absolute Auto 0.1 0.0 - 0.4 X10*3/uL [facility] Basophils Absolute Auto 0.0 0.0 - 0.2 X10*3/uL [facility] NRBC Abs Auto 0.000 0.0 - 0.012 X10*3/uL [facility] 03/23/2025 12:5 6 PM EDT 03/23/2025 12:58 PM EDT us Generic External Data Provider LAB BLOOD ORDERAB LES Final Result [facility] [address] [place] [phone] * Sed Rate by Modified Javier (03/23/2025 12:56 PM EDT) Erythrocyte Sedimentation Rate 2 0 - 15 MM/HR [facility] Comment:Patients with polycy themia and many hemoglobin abnormalitiesmay have depressed sed rates whereas patients with anemiamay have elevated sed rates. 03/23/2025 12:5 6 PM EDT 03/23/2025 12:58 PM EDT us Generic External Data Provider LAB BLOOD ORDERAB LES Final Result Performing Organization Address City/[facility]/ZIP Co de Phone Number [facility] [address] [place] [phone] * C-reactive Protein (03/23/2025 12:56 PM EDT) C Reactive Protein 0.11 < or = 0.50 mg/dL [facility] 03/23/2025 12:5 6 PM EDT 03/23/2025 12:58 PM EDT Generic External Data Provider LAB BLOOD ORDERAB LES Final Result Performing Organization Address [facility] Co de Phone Number [facility] [address] [place] [phone] * (ABNORMAL) Comprehensive Metabolic Panel (03/23/2025 12:56 PM EDT) Pathologist [facility] Sodium 140 135 - 145 mmol/L [facility] Potassium 3.9 3.3 - 5.1 mmol/L [facility] Chloride 109(H) 96 - 108 mmol/L [facility] Carbon Dioxide 25 22 - 29 mmol/L [facility] Anion Gap 10(L) 12 - 20 [facility] Urea Nitrogen (BUN) 19(H) 9 - 16 mg/dL [facility] Creatinine, Serum 1.07 0.5 - 1.4 mg/dL [facility] Creatinine Clr Calc Pharmacy 81.8 [facility] Comment:eGFR (calculated fro m the MDRD study equation) and eCrCl(calculated from the Cockcroft-Gault equation) are based ondifferent parameters and may not yield comparable results.If eCrCl result is absurd, please check patient'sheight/weight. Estimated Glomerular Filt Rate >60 [facility] Comment:Chronic Kidney Disea se: Estimated GFR < 60 mL/min/[id number] Kidney Disease: Estimated GFR < 15 mL/min/1.73m2 Glucose 108 60 - 115 mg/dL [facility] Calcium 9.1 8.4 - 10.2 mg/dL [facility] Bilirubin, Total 0.7 0.0 - 1.0 mg/dL [facility] Aspartate Amino Transferase 26 5 - 37 U/L [facility] Alanine Aminotransferase 16 0 - 40 U/L [facility] [facility] Total Protein 7.3 6.5 - 8.0 g/dL [facility] Albumin Level 4.5 3.5 - 5.0 g/dL [facility] Alkaline Phosphatase 90 39 - 117 U/L [facility] 03/23/2025 12:5 6 PM EDT 03/23/2025 12:58 PM EDT Generic External Data Provider LAB BLOOD ORDERAB LES Final Result Performing Organization Address [facility] Co de Phone Number [facility] [address] [place] [phone] * Culture, Urine, Routine (03/23/2025 12:00 AM EDT) Urine Urine specimen obtained by clean catch procedure / Unknown 03/23/2025 03/23/2025 Comment:UACC Narrative [facility] - 03/24/2025 12:25 PM EDT Urine Culture Report Result Urine Culture 50,000 to 100,000 cfu/ml Urine Culture Mixed bacterial alida characteristic of Urine Culture urogenital contamination. Specimen Source: Urine clean catch Generic External Data Provider LAB MICROBIOLOGY - GENERAL ORDERABLES Final Result Performing Organization Address [facility] Co de Phone Number [facility] [address] [place] [phone] * Referral to Ophthalmology (12/15/2024) us Shanika Israel OD OUTPATIENT REFERRAL ORDERABLE S Final Result * (ABNORMAL) POCT HGB A1C (10/19/2024 10:35 AM EST) Hemoglobin A1C 6.4(A) 4.0 - 6.0 % QC Media Lot # [id number] Lot# Expiration Date [id number] Blood 10/19/2024 10:3 5 AM EST Piedad Little MD POINT OF CARE TEST EN TER/EDIT ORDERABLES Final Result * (ABNORMAL) Lipid Panel, Standard (08/08/2024 2:44 PM EDT) Triglycerides 106 <150 mg/dL [facility] Comment:Desirable Triglyceri de: less than 150 mg/dLBorderline High Triglyceride 150-199 mg/dLHigh Triglyceride: 200-499 mg/dLVery High Triglyceride: greater than or equal to 5OO mg/dL Cholesterol 84 <200 mg/dL [facility] Comment:Desirable Cholestero l: less than 200 mg/dLBorderline High Cholesterol: 200-239 mg/dLHigh Cholesterol: greater than 239 mg/dL LDL Cholesterol Calculated 29 <100 mg/dL [facility] Comment:Desirable LDL: less than 100 mg/dLNear Optimal/Above Optimal LDL: 110- 129 mg/dLBorderline High LDL: 130-159 mg/dLHigh LDL: 160-189 mg/dLVery High LDL: greater than or equal to 190 mg/dL HDL Cholesterol 34(L) >40 mg/dL [facility] Comment:Desirable HDL: great er than 40 mg/dL Note: This HDL assay may give artificially low results in patients with liver disease. Blood Venous blood specimen / Unknown 08/08/2024 2:44 PM EDT 08/08/2024 2:44 PM EDT Piedad Little MD LAB BLOOD ORDERABLES Final Result [facility] [address] [place] [phone] * Hepatitis C Ab (12/21/2023 4:14 PM EDT) Hepatitis C Antibody Nonreactive Nonreactive [facility] Comment:Antibodies to HCV no t detected; does not exclude early acuteHCV infection. 12/21/2023 4:14 PM EDT 12/21/2023 4:14 PM EDT Generic External Data Provider LAB BLOOD ORDERAB LES Final Result Performing Organization Address [facility]/ZIP Co de Phone Number [facility] [address] [place] [phone] * HIV-1/2 Antigen and Antibodies, Fourth Generation, with Reflexes (12/21/2023 4:14 PM EDT) HIV AB/AG Nonreactive Nonreactive [facility] Comment:HIV-1 p24 Ag and/or HIV-1/HIV-2 Ab not detected.A test result that is nonreactive does not exclude thepossibility of exposure to or infection with HIV-1 and/orHIV-2. Nonreactive results in this assay for individualswith prior exposure to HIV-1 and/or HIV-2 may be due toantigen and antibody levels that are below the limit ofdetection of this assay.The [employer] HIV Ag/Ab Combo assay result andsupplemental assay results should be interpreted inconjunction with the patient's clinical presentation,history and other laboratory results. If the results areinconsistent with clinical evidence, additional testing issuggested to confirm the result. 12/21/2023 4:14 PM EDT 12/21/2023 4:14 PM EDT us Generic External Data Provider LAB BLOOD ORDERAB LES Final Result Performing Organization Address [facility]/ZIP Co de Phone Number [facility] [address] [place] [phone] * ALBUMIN, RANDOM URINE W/CREATININE (12/19/2020 8:58 AM EST) Microalbumin Urine 0.2 See Note: mg/dL [facility] Comment: Reference Range: Reference Range Not established Microalb/Creat Ratio 4 <30 mcg/mg creat [facility] Comment: The ADA defines abnormalities in albumin excretion as follows: Category Result (mcg/mg creatinine) Normal <30 Microalbuminuria 30-299 Clinical albuminuria > OR = 300 The ADA recommends that at least two of three specimens collected within a 3-6 month period be abnormal before considering a patient to be within a diagnostic category. Creatinine, Urine 48 20 - 320 mg/dL [facility] 12/19/2020 8:58 AM EST us Piedad Little MD LAB URINE ORDERABLES Final Result [facility] [address] from Last 3 Months or Most Recently Relevant to Health Maintenance Insurance [facility] < [address] [facility] Care Teams Paper Gluing Operator Relationship Specialty Start Date End Date Piedad Pacheco MD [address] [place] [phone] PCP - General Family Medicine 10/26/20
--- OUTSIDE RECORDS SUMMARY | 2025-06-21 13:33 | XMS_ITS | Encounter Summary ---
Author Organization [employer] Address [address] [facility] 7t [place] [address] Care Team Providers Care Electrical Discharge Machine Operator Name Role Phone Piedad Pacheco MD Primary Care Provide r Reason for Visit * Reason Onset Date Comments PT1 05/03/2024 Encounter Details Date Type Department Care Team ([facility] Contact Info) Description 05/03/2024 Telephone [facility] [address] [place], [place] [phone] Piedad Pacheco MD [address] [place] [address] PT1 Social History Tobacco Use Types Packs/Day [...] Provider name or facility name: Facility Address: [address] [place] [address] [address] [place] [address] Escort needed: Y/N: Yes will be going with pt Do you have a wheelchair: Y/N: Yes If yes- Manual or electric: electric Visits: 4-5 times a year documented in this encounter Plan of Treatment Upcoming Encounters Date Type Department Care Team (Late st Contact Info) Description 07/18/2025 10:00 AM EDT Office Visit [facility] [address] [place] [phone] Piedad Pacheco MD [address] [place] [address] 08/25/2025 11:00 AM EST Telemedicine [facility] [address] [place] [address] Francy Melara RN documented as of this encounter Visit Diagnoses Not on filedocumented in this encounter Additional Health Concerns Assessment Noted Time PHQ-9 Depression Total Score: 0 07/14/20 11:16 AM EDT documented as of this encounter Care Teams Electrical Discharge Machine Operator Relationship Specialty Start Date End Date Piedad Pacheco MD [address] [place] [address] PCP - General Family Medicine 10/26/20 documented as of this encounter
--- OUTSIDE RECORDS SUMMARY | 2025-06-21 13:33 | XMS_ITS | Encounter Summary ---
Author Organization [employer] Address [address] [facility] 7t [place] [address] Care Team Providers Care Photography Assistant Name Role Phone Piedad Pacheco MD Primary Care Provide r Reason for Visit * Reason Comments Med Refill Encounter Details Date Type Department Care Team ([facility] st Contact Info) Description 12/01/2023 Refill [facility] 230 [place], [place] [phone] Name, MD Juno [address] [place] [address] Social History Tobacco Use Types Packs/Day Years [...] Office Visit [facility] [address] [place] [phone] Piedad Pacheco MD [address] [place] [address] 08/25/2025 11:00 AM EST Telemedicine [facility] [address] [place] [address] 67[address] Francy Melara RN documented as of this encounter Visit Diagnoses Not on filedocumented in this encounter Additional Health Concerns Assessment Noted Time PHQ-9 Depression Total Score: 0 07/14/20 23 11:16 AM EDT documented as of this encounter Care Teams Photography Assistant Relationship Specialty Start Date End Date Piedad Pacheco MD [address] [place] [phone] PCP - General Family Medicine 10/26/20 documented as of this encounter
--- OUTSIDE RECORDS SUMMARY | 2025-06-21 13:33 | XMS_ITS | Encounter Summary ---
Author Organization [employer] Address 75 [facility] 7t [place] [address] Care Team Providers Care Data Warehouse Administrator Name Role Phone Piedad Pacheco MD Primary Care Provide r Reason for Visit * Reason Comments Med Refill Encounter Details Date Type Department Care Team ([facility] st Contact Info) Description 02/10/2024 Refill [facility] 230 [place], [place] [phone] Doris Dunne MD 230 [place], [place] [phone] Restless leg syndrome Social History Tobacco Use [...] Description 07/18/2025 10:00 AM EDT Office Visit [facility] [address] [place] [phone] Piedad Pacheco MD [address] [place] [address] 08/25/2025 11:00 AM EST Telemedicine [facility] [address] [place] [phone] Francy Melara RN documented as of this encounter Visit Diagnoses Diagnosis Restless leg syndrome Restless legs syndrome (RLS) documented in this encounter Additional Health Concerns Assessment Noted Time PHQ-9 Depression Total Score: 0 07/14/20 23 11:16 AM EDT documented as of this encounter Care Teams Data Warehouse Administrator Relationship Specialty Start Date End Date Piedad Pacheco MD [address] [place] [phone] PCP - General Family Medicine 10/26/20 documented as of this encounter
--- OUTSIDE RECORDS SUMMARY | 2025-06-21 13:33 | XMS_ITS | Encounter Summary ---
Author Organization [employer] Address [address] [facility] 7t [place] [address] Care Team Providers Care Corporate Events Director Name Role Phone Piedad Pacheco MD Primary Care Provide r Reason for Visit * Reason Onset Date Comments Nurse Triage 12/02/2023 Encounter Details Date Type Department Care Team ([facility] Contact Info) Description 12/02/2023 Telephone [facility] 230 [place], [place] [phone] Piedad Pacheco MD 230 [place] [address] Nurse Triage Social History Tobacco Use Types [...] referral to specialist regarding hospital visit at [facility] 10/19/23 . Pt was seen there sent home and then returned to [facility] and was admitted and sent to jail in [place] for rehab. Unclear as to dates, no information is on the chart. Pt did have UTI and pulido catheter and unclear if this was resolved. Pt was told to geta referral to specialist ? as to whether this is regarding back pain or UTI. Advised Pt has an apt with PCP 12/16/23 and can come to [facility] today open till 8pm for any acute problem. Pt reports will wait to see PCP. Advised will send this information to nursing team. Pt agrees and reports that PCP knows all information regarding this situation. Pt does have new insurance [employer] ID # is [id number] Protocol Used: Information Only Call - No [...] Description 07/18/2025 10:00 AM EDT Office Visit [facility] [address] [place] [address] Piedad Pacheco MD [address] [place] [address] 08/25/2025 11:00 AM EST Telemedicine [address] [phone] Francy Melara RN documented as of this encounter Visit Diagnoses Not on filedocumented in this encounter Additional Health Concerns Assessment Noted Time PHQ-9 Depression Total Score: 0 07/14/20 23 11:16 AM EDT documented as of this encounter Care Teams Corporate Events Director Relationship Specialty Start Date End Date Piedad Pacheco MD [address] [place] [address] [phone] PCP - General Family Medicine 10/26/20 documented as of this encounter
--- OUTSIDE RECORDS SUMMARY | 2025-06-21 13:33 | XMS_ITS | Encounter Summary ---
Author Organization [employer] Address [address] [facility] 7t [place] [address] Care Team Providers Care Sack Department Supervisor Name Role Phone Piedad Pacheco MD Primary Care Provide r Reason for Visit * Reason Onset Date Comments Med Refill 05/25/2024 Encounter Details Date Type Department Care Team ([facility] st Contact Info) Description 05/25/2024 Telephone [facility] 230 [place], [place] [phone] Piedad Pacheco MD 230 [place] [address] Med Refill Social History Tobacco Use Types [...] 10 MG tablet To be sent to: [facility] [address] [place] [address] documented in this encounter Plan of Treatment Upcoming Encounters Date Type Department Care Team (Late st Contact Info) Description 07/18/2025 10:00 AM EDT Office Visit [facility] [address] [place] [address] Piedad Pacheco MD [address] [place] [address] 08/25/2025 11:00 AM EST Telemedicine [facility] [address] [place] [address] Francy Melara RN documented as of this encounter Visit Diagnoses Not on filedocumented in this encounter Additional Health Concerns Assessment Noted Time PHQ-9 Depression Total Score: 0 07/14/20 23 11:16 AM EDT documented as of this encounter Care Teams Sack Department Supervisor Relationship Specialty Start Date End Date Piedad Pacheco MD [address] [place] [phone] PCP - General Family Medicine 10/26/20 documented as of this encounter
--- OUTSIDE RECORDS SUMMARY | 2025-06-21 13:33 | XMS_ITS | Encounter Summary ---
Author Organization [employer] Address 75 [facility] 7t [place] [address] Care Team Providers Care Supervisor Speech Name Role Phone Piedad Pacheco MD Primary Care Provide r Encounter Details Date Type Department Care Team (Late st Contact Info) Description 05/22/2025 Orders Only [facility] 230 [place], [place] [phone] Piedad Pacheco MD 230 [place] [address] Hemiparesis affecting right side as late effect of cerebrovascular accident (CMS/HCC) (Primary Dx) Social History Tobacco Use Types Packs/Day Years [...] 10:00 AM EDT Office Visit [facility] [address] [place] [address] Piedad Pacheco MD [address] [place] [address] 08/25/2025 11:00 AM EST Telemedicine [facility] [address] [place] [phone] Francy Melara, SLADE documented as of this encounter Visit Diagnoses Diagnosis Hemiparesis affecting right side as late effect of cerebrovascular accident (CMS/HCC)- Primary documented in this encounter Additional Health Concerns Assessment Noted Time PHQ-9 Depression Total Score: 0 10/19/19 25 10:23 AM EST documented as of this encounter Care Teams Supervisor Speech Relationship Specialty Start Date End Date Piedad Pacheco MD [address] [place] [phone] PCP - General Family Medicine 10/26/20 documented as of this encounter
--- OUTSIDE RECORDS SUMMARY | 2025-06-21 13:33 | XMS_ITS | Encounter Summary ---
Author Organization [employer] Address 75 [facility] 7t [place] [address] Care Team Providers Care Commercial Drafter Name Role Phone Piedad Pacheco MD Primary Care Provide r Reason for Visit * Reason Onset Date Comments Med Refill 06/20/2025 Encounter Details Date Type Department Care Team (Late st Contact Info) Description 06/20/2025 Refill [facility] 230 [place] [address] Piedad Pacheco MD 230 [place] [address] Insomnia, unspecified type Social History Tobacco Use [...] encounter Miscellaneous Notes * Telephone Encounter - Rachel Sanford LPN - 06/20/2025 9:26 AM EDT Glass Sagger ck .07.06/next appointment 07.18.25 * Telephone Encounter - Emma Waite - 06/20/2025 9:22 AM EDT TC from pt requesting medication refill. Medications needing refill : - zolpidem (Ambien) 10 MG tablet To be sent to: - [facility] [address] [place] [address] - [address] [place] [address] documented in this encounter Plan of Treatment Upcoming Encounters Date Type Department Care Team (Late st Contact Info) Description 07/18/2025 10:00 AM EDT Office Visit [facility] [address] [place] [address] [phone] Piedad Pacheco MD 230 [place] [address] 08/25/2025 11:00 AM EST Telemedicine [facility] [address] [place] [address] Francy Melara RN documented as of this encounter Visit Diagnoses Diagnosis Insomnia, unspecified type documented in this encounter Additional Health Concerns Assessment Noted Time PHQ-9 Depression Total Score: 0 10/19/19 25 10:23 AM EST documented as of this encounter Care Teams Commercial Drafter Relationship Specialty Start Date End Date Piedad Pacheco MD 230 [place] [address] PCP - General Family Medicine 10/26/20 documented as of this encounter
--- OUTSIDE RECORDS SUMMARY | 2025-06-21 13:33 | XMS_ITS | Encounter Summary ---
Author Organization [employer] Address [address] [facility] 7t [place] [address] Care Team Providers Care Street Sprinkler Name Role Phone Piedad Pacheco MD Primary Care Provide r Reason for Referral * Medications - Closed Specialty Diagnoses / Procedures Referred By Contac t Referred To Contact Diagnoses Lumbar radiculopathy Piedad Pacheco MD 230 [place] [address] Phone: tel: fax: Referral ID Status Reason Start Date Expiration Date Visits Re quested Visits Authorized [id number] Closed 1 1 Reason for Visit * Reason Onset Date Comments Med Refill 06/19/2025 BPI Scoring 06/19/2025 Encounter Details Date Type Department Care Team (Late st Contact Info) Description 06/19/2025 Refill [facility] 230 [place] [address] Francy Melara RN Lumbar radiculopathy Social History Tobacco Use Types [...] Telephone Encounter - Francy Melara RN - 06/19/2025 9:32 AM EDT Pt had Tele AIRCRAFT MANAGER RV appt today BPI completed on: 06/19/2025 , pain severity score: 9, activity interference score: 9 BPI completed on: 11/23/2024 , pain severity score: 9, activity interference score: 6 documented in this encounter Plan of Treatment Upcoming Encounters Date Type Department Care Team (Late st Contact Info) Description 07/18/2025 10:00 AM EDT Office Visit [facility] [address] [place] [address] Piedad Pacheco MD [address] [place] [address] 08/25/2025 11:00 AM EST Telemedicine [facility] [address] [place] [address] Francy Melara RN documented as of this encounter Visit Diagnoses Diagnosis Lumbar radiculopathy Thoracic or lumbosacral neuritis or radiculitis, unspecified documented in this encounter Additional Health Concerns Assessment Noted Time PHQ-9 Depression Total Score: 0 10/19/19 25 10:23 AM EST documented as of this encounter Care Teams Street Sprinkler Relationship Specialty Start Date End Date Piedad Pacheco MD [address] [place] [phone] PCP - General Family Medicine 10/26/20 documented as of this encounter
--- OUTSIDE RECORDS SUMMARY | 2025-06-21 13:33 | XMS_ITS | Encounter Summary ---
Author Organization [employer] Address 75 [facility] 7t [place] [address] Care Team Providers Care Eyeglass Lens Cutter Name Role Phone Piedad Pacheco MD Primary Care Provide r Reason for Visit * Reason Onset Date Comments Med Refill 01/29/2024 Encounter Details Date Type Department Care Team ([facility] Contact Info) Description 01/29/2024 Telephone [facility] 230 [place], [place] [phone] Piedad Pacheco MD 230 [place] [address] Med Refill Social History Tobacco Use Types [...] 10 MG tablet To be sent to: [facility] [address] [place] [address] documented in this encounter Plan of Treatment Upcoming Encounters Date Type Department Care Team (Late st Contact Info) Description 07/18/2025 10:00 AM EDT Office Visit [facility] [address] [place] [address] Piedad Pacheco MD [address] [place] [address] 08/25/2025 11:00 AM EST Telemedicine [facility] [address] [place] [phone] Francy Melara, SLADE documented as of this encounter Visit Diagnoses Not on filedocumented in this encounter Additional Health Concerns Assessment Noted Time PHQ-9 Depression Total Score: 0 07/14/20 23 11:16 AM EDT documented as of this encounter Care Teams Eyeglass Lens Cutter Relationship Specialty Start Date End Date Piedad Pacheco MD [address] [place] [phone] PCP - General Family Medicine 10/26/20 documented as of this encounter
--- OUTSIDE RECORDS SUMMARY | 2025-06-21 13:33 | XMS_ITS | Clinical Summary ---
Author Organization [employer] [facility] Address [address] [place] [address] Care Team Providers Care Pharmaceutical Botanist Name Role Phone Piedad Pacheco MD Primary [...] Advance Directives For more information, please contact: [phone] Latest Code Status on File Code Status Date Activated Date Inactivated Comments Full Code 03/22/2024 2:04 AM 03/26/2024 1:02 AM This code status was ascertained in the following way: discussion with patient . Care Teams Pharmaceutical Botanist Relationship Specialty Start Date End Date Piedad Pacheco MD [address] [place] [address] [phone] PCP - General Internal Medicine 03/21/24
--- OUTSIDE RECORDS SUMMARY | 2025-06-21 13:33 | XMS_ITS | Encounter Summary ---
Author Organization [employer] Address 75 [facility] 7t [place] [address] Care Team Providers Care Cord Cutter Name Role Phone Piedad Pacheco MD Primary Care Provide r Encounter Details Date Type Department Care Team (Latest Contact Info) Description 07/15/2021 Abstract [facility] CONVERSIONS Dental, Provider, DDS Social History Tobacco [...] Care Team ( st Contact Info) Description 07/18/2025 10:00 AM EDT Office Visit [facility] MEDIC[facility] [address] [place] [address] Piedad Pacheco MD [address] [place] [address] 08/25/2025 11:00 AM EST Telemedicine [facility]INE [address] [place] [phone] Francy Melara RN documented as of this encounter Visit Diagnoses Not on filedocumented in this encounter Care Teams Cord Cutter Relationship Specialty Start Date End Date Piedad Pacheco MD [address] [place] [phone] PCP - General Family Medicine 1/15/21 documented as of this encounter
--- OUTSIDE RECORDS SUMMARY | 2025-06-21 13:33 | XMS_ITS | Encounter Summary ---
Author Organization [employer] Address 75 [facility] 7t [place] [address] Care Team Providers Care Hot Wire Glass Tube Cutter Name Role Phone Piedad Pacheco MD Primary Care Provide r Reason for Visit * Reason Onset Date Comments PT-1 04/24/2025 Encounter Details Date Type Department Care Team ([facility] st Contact Info) Description 04/24/2025 Telephone [facility] MEDICINE [address] [place], [place] [phone] Piedad Pacheco MD 230 [place] [address] PT-1 Social History Tobacco Use Types Packs/Day [...] encounter Miscellaneous Notes * Telephone Encounter - Chris Briggs - 04/24/2025 11:48 AM EDT Patient calling requesting PT1 Home Address verified: Y/N: Yes Provider name or facility name: [facility] Facility Address: [address] [place] [address] Escort needed: Y/N: Yes Do you have a wheelchair: Y/N: Yes If yes- Manual or electric: Scooter Visits: 5 a month documented in this encounter Plan of Treatment Upcoming Encounters Date Type Department Care Team ([facility] st Contact Info) Description 07/18/2025 10:00 AM EDT Office Visit [facility] MEDICINE [address] [place] [address] Piedad Pacheco MD [address] [place] [address] 08/25/2025 11:00 AM EST Telemedicine [facility] MEDICINE [address] [place] [address] Francy Melara, RN documented as of this encounter Visit Diagnoses Not on filedocumented in this encounter Additional Health Concerns Assessment Noted Time PHQ-9 Depression Total Score: 0 10/19/19 25 10:23 AM EST documented as of this encounter Care Teams Hot Wire Glass Tube Cutter Relationship Specialty Start Date End Date Piedad Pacheco MD 230 [place] [address] PCP - General Family Medicine 10/26/20 documented as of this encounter
--- OUTSIDE RECORDS SUMMARY | 2025-06-21 13:33 | XMS_ITS | Encounter Summary ---
Author Organization [employer] Address 75 [facility] 7t [place] [address] Care Team Providers Care Pet Adoption Counselor Name Role Phone Piedad Pacheco MD Primary Care Provide r Encounter Details Date Type Department Care Team ([facility] st Contact Info) Description 02/12/[address] [facility] MEDICINE 230 [place], [place] [phone] Piedad Pacheco MD 230 [place], [place] [phone] Social History Tobacco Use Types Packs/Day Years [...] EDT Office Visit [facility] MEDICINE [address] [place] [address] Piedad Pacheco MD [address] [place] [address] 08/25/2025 11:[address] [facility] MEDICINE [address] [place] [address] Francy Melara, SLADE documented as of this encounter Visit Diagnoses Not on filedocumented in this encounter Additional Health Concerns Assessment Noted Time PHQ-9 Depression Total Score: 0 07/14/20 23 11:16 AM EDT documented as of this encounter Care Teams Pet Adoption Counselor Relationship Specialty Start Date End Date Piedad Pacheco MD [address] [place] [address] PCP - General Family Medicine 10/26/20 documented as of this encounter
--- OUTSIDE RECORDS SUMMARY | 2025-06-21 13:33 | XMS_ITS | Encounter Summary ---
Author Organization [employer] Address 75 [facility] 7t [place] [address] Care Team Providers Care Advisor Advocate Angel Co Founder Name Role Phone Piedad Pacheco MD Primary Care Provide r Encounter Details Date Type Department Care Team ([facility] Contact Info) Description 06/21/2025 Orders Only GENERIC EXTERNAL DATA [...] AM EDT Office Visit [facility] MEDICINE [address] [place] [address] Piedad Pacheco MD [address] [place] [address] 08/25/2025 11:00 AM EST Telemedicine [facility] [address] [place] [address] [phone] Francy Melara RN documented as of this encounter Procedures Procedure Name Priority Date/Time Associated Diagnosis Comments PROTHROMBIN TIME-INR Routine 06/21/2025 11:22 AM EDT CBC Routine 06/21/2025 11:22 AM EDT BASIC METABOLIC PANEL Routine 06/21/2025 11:22 AM EDT documented in this encounter Results * (ABNORMAL) Basic Metabolic Panel (06/21/2025 11:22 AM EDT) Sodium 141 135 - 145 mmol/L [facility] Potassium 4.3 3.3 - 5.1 mmol/L [facility] Chloride 108 96 - 108 mmol/L [facility] Carbon Dioxide 27 22 - 29 mmol/L [facility] Anion Gap 10(L) 12 - 20 [facility] Urea Nitrogen (BUN) 13 9 - 16 mg/dL [facility] Creatinine, Serum 1.02 0.5 - 1.4 mg/dL [facility] Estimated Glomerular Filt Rate >60 [facility] Comment:Chronic Kidney Disea se: Estimated GFR < 60 mL/min/1.21e4Xgxxab Kidney Disease: Estimated GFR < 15 mL/min/1.73m2 Glucose 157(H) 60 - 115 mg/dL [facility] Calcium 9.2 8.4 - 10.2 mg/dL [facility] 06/21/2025 11:2 2 AM EDT 06/21/2025 11:22 AM EDT us Generic External Data Provider LAB BLOOD ORDERAB LES Final Result Performing Organization Address [facility] de Phone Number [facility] [address] [place] [phone] * (ABNORMAL) Prothrombin Time-INR (06/21/2025 11:22 AM EDT) Prothrombin Time 9.1(L) 10.9 - 12.4 SEC [facility] INTERNATIONAL NORM RATIO 0.8(L) 0.9 - 1.1 [facility] Comment:INTERNATIONAL NORMAL IZED RATIO (INR) REFERENCE [...] ORDERAB LES Final Result Performing Organization Address [facility] Co de Phone Number [facility] [address] [place] [phone] [phone] * (ABNORMAL) CBC (06/21/2025 11:22 AM EDT) White Blood Count 6.4 4.8 - 10.8 X10*3/uL [facility] Red Blood Count 5.44 4.60 - 5.80 X10*6/uL [facility] Hemoglobin 16.2 14.0 - 18.0 g/dl [facility] Hematocrit 48.5 42.0 - 52.0 % [facility] Mean Corpuscular Volume 89.2 80.0 - 98.0 fL [facility] Mean Corpuscular Hemoglobin 29.8 27.0 - 33.0 pg [facility] Mean Corpuscular HGB Conc 33.4 31.0 - 36.0 g/dl [facility] Red Cell Distribution Width 12.4 11.0 - 16.0 % [facility] Platelet Count 154(L) 160 - 400 X10*3/uL [facility] Mean Platelet Volume 10.6 9.4 - 12.4 fL [facility] NRBC Pct Auto 0.0 0.0 - 0.2 /100WBC [facility] NRBC Abs Auto 0.000 0.0 - 0.012 X10*3/uL [facility] 06/21/2025 11:2 2 AM EDT 06/21/2025 11:22 AM EDT us Generic External Data Provider LAB BLOOD ORDERAB LES Final Result [facility] [address] [place] [phone] [phone] documented in this encounter Visit Diagnoses Not on filedocumented in this encounter Additional Health Concerns Assessment Noted Time PHQ-9 Depression Total Score: 0 10/19/19 25 10:23 AM EST documented as of this encounter Care Teams Advisor Advocate Angel Co Founder Relationship Specialty Start Date End Date Piedad Pacheco MD [address] [place] [address] PCP - General Family Medicine 10/26/20 documented as of this encounter
--- OUTSIDE RECORDS SUMMARY | 2025-06-21 13:33 | XMS_ITS | Encounter Summary ---
Author Organization [employer] Address 75 [facility] [address] 7t [place] [address] Care Team Providers Care Ui Developer With Angular Js Name Role Phone Piedad Pacheco MD Primary Care Provide r Encounter Details Date Type Department Care Team ([facility] st Contact Info) Description 12/13/2024 Orders Only [facility] 230 [place], [place] [phone] Ronald Zimmerman MD 230 [place] [address] Social History Tobacco Use Types Packs/Day Years [...] 10:00 AM EDT Office Visit [facility] MEDICINE [address] [place] [address] Piedad Pacheco MD [address] [place] [address] 08/25/2025 11:00 AM EST Telemedicine [facility] MEDICINE [address] [place] [address] Francy Melara, SLADE documented as of this encounter Visit Diagnoses Not on filedocumented in this encounter Additional Health Concerns Assessment Noted Time PHQ-9 Depression Total Score: 0 10/19/19 25 10:23 AM EST documented as of this encounter Care Teams Ui Developer With Angular Js Relationship Specialty Start Date End Date Piedad Pacheco MD [address] [place] [phone] PCP - General Family Medicine 10/26/20 documented as of this encounter
--- OUTSIDE RECORDS SUMMARY | 2025-06-21 13:33 | XMS_ITS | Encounter Summary ---
Author Organization [employer] Address 75 [facility] 7t [place] [address] Care Team Providers Care Stress Analyst Name Role Phone Piedad Pacheco MD Primary Care Provide r Reason for Visit * Reason Onset Date Comments Med Refill 02/08/2024 Encounter Details Date Type Department Care Team ([facility] Contact Info) Description 02/08/2024 Telephone [facility] MEDICINE 230 [place], [place] [phone] Piedad Pacheco MD [address] [place] [address] Med Refill Social History Tobacco Use Types [...] 10:24 AM EDT Medication was sent to [facility] 2386 on 09/18/23 90 day supply with 1 refill. * Telephone Encounter - Chris Briggs - 02/08/2024 9:59 AM EDT TC from pt requesting medication refill. Medications needing refill: rOPINIRole (Requip) 2 MG tablet To be sent to: [phone] documented in this encounter Plan of Treatment Upcoming Encounters Date Type Department Care Team (Late st Contact Info) Description 07/18/2025 10:00 AM EDT Office Visit [facility] MEDICINE [address] [place] [address] Piedad Pacheco MD [address] [place], [place] [phone] 08/25/2025 11:00 AM EST Telemedicine [facility] MEDICINE [address] [place] [address] [phone] Francy Melara RN documented as of this encounter Visit Diagnoses Not on filedocumented in this encounter Additional Health Concerns Assessment Noted Time PHQ-9 Depression Total Score: 0 07/14/20 23 11:16 AM EDT documented as of this encounter Care Teams Stress Analyst Relationship Specialty Start Date End Date Piedad Pacheco MD [address] [place] [address] PCP - General Family Medicine 10/26/20 documented as of this encounter
--- OUTSIDE RECORDS SUMMARY | 2025-06-21 13:34 | XMS_ITS | Encounter Summary ---
Author Organization [employer] Address 75 [facility] 7t [place] [address] Care Team Providers Care Roller Coaster Engineer Name Role Phone Piedad Pacheco MD Primary Care Provide r Reason for Visit * Reason Comments Med Refill Encounter Details Date Type Department Care Team ([facility] st Contact Info) Description 09/01/2023 Refill [facility] MEDICINE 230 [place], [place] [phone] Piedad Pacheco MD 230 [place] [address] Restless leg syndrome Social History Tobacco Use [...] Description 07/18/2025 10:00 AM EDT Office Visit [facility] MEDICINE [address] [place] [phone] Piedad Pacheco MD [address] [place] [address] 08/25/2025 11:00 AM EST Telemedicine [facility] MEDICINE [address] [place] [address] [phone] Francy Melara RN documented as of this encounter Visit Diagnoses Diagnosis Restless leg syndrome Restless legs syndrome (RLS) documented in this encounter Additional Health Concerns Assessment Noted Time PHQ-9 Depression Total Score: 0 07/14/20 23 11:16 AM EDT documented as of this encounter Care Teams Roller Coaster Engineer Relationship Specialty Start Date End Date Piedad Pacheco MD [address] [place] [phone] PCP - General Family Medicine 10/26/20 documented as of this encounter
--- OUTSIDE RECORDS SUMMARY | 2025-06-21 13:34 | XMS_ITS | Encounter Summary ---
Author Organization [employer] Address 75 [facility] 7t [place] [address] Care Team Providers Care Beauty Sales Consultant Name Role Phone Piedad Pacheco MD Primary Care Provide r Reason for Visit * Reason Comments Med Refill Encounter Details Date Type Department Care Team ([facility] st Contact Info) Description 09/11/2023 Refill [facility] MEDICINE 230 [place], [place] [phone] Piedad Pacheco MD 230 [place] [address] Restless leg syndrome Social History Tobacco Use [...] status on message below. Contact pt at [phone] documented in this encounter Plan of Treatment Upcoming Encounters Date Type Department Care Team (Late st Contact Info) Description 07/18/2025 10:00 AM EDT Office Visit [facility] MEDICINE [address] [place] [address] Piedad Pacheco MD [address] [place] [address] 08/25/2025 11:00 AM EST Telemedicine [facility] MEDICINE [address] [place] [address] 25[address] Francy Melara RN documented as of this encounter Visit Diagnoses Diagnosis Restless leg syndrome Restless legs syndrome (RLS) documented in this encounter Additional Health Concerns Assessment Noted Time PHQ-9 Depression Total Score: 0 07/14/20 23 11:16 AM EDT documented as of this encounter Care Teams Beauty Sales Consultant Relationship Specialty Start Date End Date Piedad Pacheco MD [address] [place] [address] PCP - General Family Medicine 10/26/20 documented as of this encounter
--- OUTSIDE RECORDS SUMMARY | 2025-06-21 13:34 | XMS_ITS | Encounter Summary ---
Author Organization [employer] Address 75 [facility] 7t [place] [address] Care Team Providers Care Manager Financial Name Role Phone Piedad Pacheco MD Primary Care Provide r Reason for Visit * Reason Comments Med Refill Encounter Details Date Type Department Care Team ([facility] st Contact Info) Description 08/27/2023 Refill [facility] MEDICINE 230 [place], [place] [phone] Piedad Pacheco MD 230 [place] [address] Restless leg syndrome Social History Tobacco Use [...] Description 07/18/2025 10:00 AM EDT Office Visit [facility] MEDICINE [address] [place] [address] Piedad Pacheco MD [address] [place] [address] 08/25/2025 11:00 AM EST Telemedicine [facility] MEDICINE [address] [place] [address] 24[address] Francy Melara RN documented as of this encounter Visit Diagnoses Diagnosis Restless leg syndrome Restless legs syndrome (RLS) documented in this encounter Additional Health Concerns Assessment Noted Time PHQ-9 Depression Total Score: 0 07/14/20 23 11:16 AM EDT documented as of this encounter Care Teams Manager Financial Relationship Specialty Start Date End Date Piedad Pacheco MD [address] [place] [address] PCP - General Family Medicine 10/26/20 documented as of this encounter
--- OUTSIDE RECORDS SUMMARY | 2025-06-21 13:34 | XMS_ITS | Encounter Summary ---
Author Organization [employer] Address 75 [facility] 7t [place] [address] Care Team Providers Care Pecan Picker Name Role Phone Piedad Pacheco MD Primary Care Provide r Reason for Visit * Reason Onset Date Comments PT1 12/12/2024 Encounter Details Date Type Department Care Team ([facility] Contact Info) Description 12/12/2024 Telephone [facility] MEDICINE 230 [place], [place] [phone] Piedad Pacheco MD 230 [place] [address] PT1 Social History Tobacco Use Types Packs/Day [...] AM EDT Office Visit [facility] MEDICINE [address] [place] [address] Piedad Pacheco MD [address] [place] [address] 08/25/2025 11:00 AM EST Telemedicine [facility] MEDICINE [address] [place] [address] 6[address] Francy Melara, RN documented as of this encounter Visit Diagnoses Not on filedocumented in this encounter Additional Health Concerns Assessment Noted Time PHQ-9 Depression Total Score: 0 10/19/19 25 10:23 AM EST documented as of this encounter Care Teams Pecan Picker Relationship Specialty Start Date End Date Piedad Pacheco MD 230 [place] [address] PCP - General Family Medicine 10/26/20 documented as of this encounter
== END 2025-06-21 10:50 | disposition home or self-care (01) ==
LOC: HO.LAB 10:49
PROVIDERS: PCP Internal Medicine; Visit Provider Internal Medicine
DX: I25.10 Atherosclerotic heart disease of native coronary artery without angina pectoris (principal)
CPT/HCPCS: 36415; 80048; 85027; 85610

== ENCOUNTER → 2025-07-13 23:59 | Outpatient (BNV) | payer OTHER, SELFPAY | PROVIDERS: PCP Internal Medicine; Visit Provider Internal Medicine Cardiovascular Disease | DX: I25.118 Atherosclerotic heart disease of native coronary artery with other forms of angina pectoris (principal) | CPT/HCPCS: 92928; 92978; 93458; 99152 ==

== ENCOUNTER 2025-09-05 08:43 | Outpatient (AMB) | payer OTHER, SELFPAY ==
--- OUTSIDE RECORDS SUMMARY | 2025-09-05 09:05 | XMS_ITS | Encounter Summary ---
Author Organization [employer] Address 75 [facility] 7t [place] [address] Care Team Providers Care Hot Man Name Role Phone Piedad Pacheco MD Primary Care Provide r Reason for Visit * Reason Onset Date Comments Med Refill 08/31/2024 Encounter Details Date Type Department Care Team ([facility] Contact Info) Description 08/31/2024 Telephone [facility] MEDICINE 230 [place] [address] Piedad Pacheco MD 230 [place] [address] Med Refill Social History Tobacco Use Types [...] immediate release tablet To be sent to: [facility] [address] [place] [address] documented in this encounter Plan of Treatment Upcoming Encounters Date Type Department Care Team (Late st Contact Info) Description 10/24/2025 9:15 AM EST Office Visit [facility] MEDICINE [address] [place] [address] Piedad Pacheco MD [address] [place] [address] 12/08/2025 1:30 PM EST Telemedicine [facility] MEDICINE [address] [place] [address] Francy Melara RN documented as of this encounter Visit Diagnoses Not on filedocumented in this encounter Additional Health Concerns Assessment Noted Time PHQ-9 Depression Total Score: 0 07/14/20 23 11:16 AM EDT documented as of this encounter Care Teams Hot Man Relationship Specialty Start Date End Date Piedad Pacheco MD [address] [place] [address] PCP - General Family Medicine 10/26/20 documented as of this encounter
--- OUTSIDE RECORDS SUMMARY | 2025-09-05 09:05 | XMS_ITS | Encounter Summary ---
Author Organization [employer] Address 75 [facility] 7t [place] [address] Care Team Providers Care Motorcycle Technician Name Role Phone Piedad Pacheco MD Primary Care Provide r Reason for Visit * Reason Onset Date Comments Med Refill 05/25/2024 Encounter Details Date Type Department Care Team ([facility] st Contact Info) Description 05/25/2024 Telephone [facility] MEDICINE 230 [place], [place] [phone] Piedad Pacheco MD 230 [place] [address] Med Refill Social History Tobacco Use Types [...] 10 MG tablet To be sent to: [facility] [address] [place] [address] documented in this encounter Plan of Treatment Upcoming Encounters Date Type Department Care Team (Late st Contact Info) Description 10/24/2025 9:15 AM EST Office Visit [facility] MEDICINE [address] [place] [address] Piedad Pacheco MD [address] [place] [address] 12/08/2025 1:30 PM EST Telemedicine [facility] MEDICINE [address] [place] [address] 368[address] Francy Melara RN documented as of this encounter Visit Diagnoses Not on filedocumented in this encounter Additional Health Concerns Assessment Noted Time PHQ-9 Depression Total Score: 0 07/14/20 23 11:16 AM EDT documented as of this encounter Care Teams Motorcycle Technician Relationship Specialty Start Date End Date Piedad Pacheco MD [address] [place] [address] PCP - General Family Medicine 10/26/20 documented as of this encounter
--- OUTSIDE RECORDS SUMMARY | 2025-09-05 09:05 | XMS_ITS | Encounter Summary ---
Author Organization [email or web address] Address 75 [facility] 7t [place] [address] Care Team Providers Care Applier Name Role Phone Piedad Pacheco MD Primary Care Provide r Reason for Visit * Reason Onset Date Comments callback requested 09/12/2024 Encounter Details Date Type Department Care Team ([facility] Contact Info) Description 09/12/2024 Telephone [facility] MEDICINE 230 [place] [address] Piedad Pacheco MD 230 [place] [address] callback requested Social History Tobacco Use Types [...] 09/12/2024 2:06 PM EST Tc from [place] ([facility]) requesting a callback from PCP or [place] in regards pt (no further info discussed) Callback number [phone] documented in this encounter Plan of Treatment Upcoming Encounters Date Type Department Care Team (Late st Contact Info) Description 10/24/2025 9:15 AM EST Office Visit [facility] MEDICINE [address] [place] [address] Piedad Pacheco MD [address] [place] [address] 12/08/2025 1:30 PM EST Telemedicine [facility] MEDICINE [address] [place] [address] Francy Melara, SLADE documented as of this encounter Visit Diagnoses Not on filedocumented in this encounter Additional Health Concerns Assessment Noted Time PHQ-9 Depression Total Score: 0 07/14/20 23 11:16 AM EDT documented as of this encounter Care Teams Applier Relationship Specialty Start Date End Date Piedad Pacheco MD [address] [place] [phone] PCP - General Family Medicine 10/26/20 documented as of this encounter
--- OUTSIDE RECORDS SUMMARY | 2025-09-05 09:05 | XMS_ITS | Encounter Summary ---
Author Organization [employer] Address 75 [facility] 7t [place] [address] Care Team Providers Care Gl Accountant Name Role Phone Piedad Pacheco MD Primary Care Provide r Reason for Visit * Reason Onset Date Comments Med Refill 03/10/2025 Encounter Details Date Type Department Care Team ([facility] Contact Info) Description 03/10/2025 Telephone [facility] MEDICINE 230 [place] [address] Piedad Pacheco MD 230 [place] [address] Med Refill Social History Tobacco Use Types [...] 2:36 PM EDT Medication was sent to [facility][id number] on 02/06/25 #30 with 1 refill. * Telephone Encounter - Jessi Robison - 03/10/2025 2:33 PM EDT TC from pt requesting medication refill. Medications needing refill : zolpidem (Ambien) 10 MG tablet To be sent to: [facility] [address] [place] [address] documented in this encounter Plan of Treatment Upcoming Encounters Date Type Department Care Team (Late st Contact Info) Description 10/24/2025 9:15 AM EST Office Visit [facility] MEDICINE [address] [place] [address] Piedad Pacheco MD 230 [place] [address] 12/08/2025 1:30 PM EST Telemedicine [facility] MEDICINE 230 [place], [place] [phone] Francy Melara RN documented as of this encounter Visit Diagnoses Not on filedocumented in this encounter Additional Health Concerns Assessment Noted Time PHQ-9 Depression Total Score: 0 10/19/19 25 10:23 AM EST documented as of this encounter Care Teams Gl Accountant Relationship Specialty Start Date End Date Piedad Pacheco MD [address] [place] [address] PCP - General Family Medicine 10/26/20 documented as of this encounter
--- OUTSIDE RECORDS SUMMARY | 2025-09-05 09:05 | XMS_ITS | Clinical Summary ---
Author Organization [facility] Address [address] [place] [address] Care Team Providers Care Timber Buyer Name Role Phone Unknown Primary Care Provider [phone] Allergies No known active allergies Medications oxyCODONE-aceta [...] 50+ (1 of 1 - PCV) 2011 RSV Vaccine 50 years and old er and Patients (1 - Risk 50-74 years 1-dose series) 2011 Zoster (Shingles) Vaccine (1 of 2) 2011 Influenza Vaccine 05/12/2025 COVID-19 Vaccine (1 - 2024-2 5 season) 2025 Hepatitis B Vaccines Aged Out No long er eligible based on patient's age to complete this topic Insurance MEDICAID OUT OF STATE [facility] [place] [address] [place] [address] MEDICARE OUT OF NETWORK Care Teams Timber Buyer Relationship Specialty Start Date End Date Unknown Unknow Provider Address PCP - General 05/15/17
--- OUTSIDE RECORDS SUMMARY | 2025-09-05 09:05 | XMS_ITS | Encounter Summary ---
Author Organization [employer] Address 75 [facility] 7t [place] [address] Care Team Providers Care Studio Grip Name Role Phone Piedad Pacheco MD Primary Care Provide r Encounter Details Date Type Department Care Team ([facility] st Contact Info) Description 10/28/2024 Telephone [facility] MEDICINE 230 [place], [place] [phone] Piedad Pacheco MD 230 [place], [place] [phone] Social History Tobacco Use Types Packs/Day Years [...] Description 10/24/2025 9:15 AM EST Office Visit [facility] MEDICINE [address] [place] [address] Piedad Pacheco MD [address] [place] [address] 12/08/2025 1:30 PM EST Telemedicine [address] [address] Francy Melara RN documented as of this encounter Visit Diagnoses Not on filedocumented in this encounter Additional Health Concerns Assessment Noted Time PHQ-9 Depression Total Score: 0 10/19/19 25 10:23 AM EST documented as of this encounter Care Teams Studio Grip Relationship Specialty Start Date End Date Piedad Pacheco MD [address] [place] [address] PCP - General Family Medicine 10/26/20 documented as of this encounter
--- OUTSIDE RECORDS SUMMARY | 2025-09-05 09:05 | XMS_ITS | Encounter Summary ---
Author Organization [employer] Address 75 [facility] 7t [place] [address] Care Team Providers Care Keymodule Assembly Machine Tender Name Role Phone Piedad Pacheco MD Primary Care Provide r Encounter Details Date Type Department Care Team (Late st Contact Info) Description 01/28/2023 Orders Only [facility] CHC MED & PEDS [address] [place], [place] [phone] Jen Cortez LPN Social History Tobacco Use [...] Description 10/24/2025 9:15 AM EST Office Visit [facility] MEDICINE [address] [place] [address] [phone] Piedad Pacheco MD [address] [place] [address] 12/08/2025 1:30 PM EST Telemedicine [address] [phone] Francy Melara RN documented as of this encounter Visit Diagnoses Not on filedocumented in this encounter Care Teams Keymodule Assembly Machine Tender Relationship Specialty Start Date End Date Piedad Pacheco MD [address] [place] [address] PCP - General Family Medicine 10/26/20 documented as of this encounter
--- OUTSIDE RECORDS SUMMARY | 2025-09-05 09:05 | XMS_ITS | Encounter Summary ---
Author Organization [email or web address] Address 75 [facility] 7t [place] [address] Care Team Providers Care Doll Wig Hackler Name Role Phone Piedad Pacheco MD Primary Care Provide r Encounter Details Date Type Department Care Team (Late st Contact Info) Description 11/07/2022 Orders Only [facility] CHC MED & PEDS [address] [place], [place] [phone] Jen Cortez LPN Social History Tobacco Use [...] Description 10/24/2025 9:15 AM EST Office Visit [facility] MEDICINE [address] [place] [address] [phone] Piedad Pacheco MD [address] [place] [address] 12/08/2025 1:30 PM EST Telemedicine [address] [phone] Francy Melara RN documented as of this encounter Visit Diagnoses Not on filedocumented in this encounter Care Teams Doll Wig Hackler Relationship Specialty Start Date End Date Piedad Pacheco MD [address] [place] [address] PCP - General Family Medicine 10/26/20 documented as of this encounter
--- OUTSIDE RECORDS SUMMARY | 2025-09-05 09:05 | XMS_ITS | Encounter Summary ---
Author Organization [employer] Address 75 [facility] 7t [place] [address] Care Team Providers Care School Community Relations Coordinator Name Role Phone Piedad Pacheco MD Primary Care Provide r Encounter Details Date Type Department Care Team (Late st Contact Info) Description 03/03/2023 Orders Only [facility] CHC MED & PEDS [address] [place], [place] [phone] Jen Cortez LPN Social History Tobacco Use [...] Description 10/24/2025 9:15 AM EST Office Visit [facility] MEDICINE [address] [place] [address] [phone] Piedad Pacheco MD [address] [place] [address] 12/08/2025 1:30 PM EST Telemedicine [address] [phone] Francy Melara RN documented as of this encounter Visit Diagnoses Not on filedocumented in this encounter Care Teams School Community Relations Coordinator Relationship Specialty Start Date End Date Piedad Pacheco MD [address] [place] [address] PCP - General Family Medicine 10/26/20 documented as of this encounter
--- OUTSIDE RECORDS SUMMARY | 2025-09-05 09:05 | XMS_ITS | Encounter Summary ---
Author Organization [employer] Address 75 [facility] 7t [place] [address] Care Team Providers Care Conference Producer Name Role Phone Piedad Pacheco MD Primary Care Provide r Encounter Details Date Type Department Care Team (Latest Contact Info) Description 07/15/2021 Abstract [facility] CONVERSIONS Dental, Provider, DDS Social History [...] Care Team ( st Contact Info) Description 10/24/2025 9:15 AM EST Office Visit [address] [address] Piedad Pacheco MD [address] [place] [address] 12/08/2025 1:30 PM EST Telemedicine [address] [phone] Francy Melara RN documented as of this encounter Visit Diagnoses Not on filedocumented in this encounter Care Teams Conference Producer Relationship Specialty Start Date End Date Piedad Pacheco MD [address] [place] [address] [phone] PCP - General Family Medicine 10/26/20 documented as of this encounter
--- OUTSIDE RECORDS SUMMARY | 2025-09-05 09:05 | XMS_ITS | Encounter Summary ---
Author Organization [employer] Address 75 [facility] 7t [place] [address] Care Team Providers Care Gauge And Weigh Machine Operator Name Role Phone Piedad Pacheco MD Primary Care Provide r Encounter Details Date Type Department Care Team (Late st Contact Info) Description 03/31/2023 Orders Only [facility] CHC MED & PEDS [address] [place], [place] [phone] Jen Cortez LPN Social History Tobacco Use [...] Description 10/24/2025 9:15 AM EST Office Visit [facility] MEDICINE [address] [place] [address] [phone] Piedad Pacheco MD [address] [place] [address] 12/08/2025 1:30 PM EST Telemedicine [address] [phone] Francy Melara RN documented as of this encounter Visit Diagnoses Not on filedocumented in this encounter Care Teams Gauge And Weigh Machine Operator Relationship Specialty Start Date End Date Piedad Pacheco MD [address] [place] [address] PCP - General Family Medicine 10/26/20 documented as of this encounter
--- OUTSIDE RECORDS SUMMARY | 2025-09-05 09:05 | XMS_ITS | Encounter Summary ---
Author Organization [employer] Address 75 [facility] 7t [place] [address] Care Team Providers Care Icu Tech Name Role Phone Piedad Pacheco MD Primary Care Provide r Encounter Details Date Type Department Care Team ([facility] st Contact Info) Description 09/30/2024 Orders Only [facility] MEDICINE 230 [place], [place] [phone] Piedad Pacheco MD 230 [place] [address] Social History Tobacco Use Types Packs/Day Years [...] Description 10/24/2025 9:15 AM EST Office Visit [facility] MEDICINE [address] [place] [address] Piedad Pacheco MD [address] [place] [address] 12/08/2025 1:30 PM EST Telemedicine [facility] MEDICINE [address] [place] [address] Francy Melara RN documented as of this encounter Visit Diagnoses Not on filedocumented in this encounter Additional Health Concerns Assessment Noted Time PHQ-9 Depression Total Score: 0 07/14/20 23 11:16 AM EDT documented as of this encounter Care Teams Icu Tech Relationship Specialty Start Date End Date Piedad Pacheco MD [address] [place] [address] PCP - General Family Medicine 10/26/20 documented as of this encounter
--- OUTSIDE RECORDS SUMMARY | 2025-09-05 09:05 | XMS_ITS | Encounter Summary ---
Author Organization [employer] Address 75 [facility] 7t [place] [address] Care Team Providers Care Supervisor Ore Dressing Name Role Phone Piedad Pacheco MD Primary Care Provide r Reason for Visit * Reason Onset Date Comments Medication Question 06/26/2023 Encounter Details Date Type Department Care Team ([facility] Contact Info) Description 06/26/2023 Telephone [facility] MEDICINE 230 [place], [place] [phone] Piedad Pacheco MD 230 [place] [address] Medication Question Social History Tobacco Use Types Packs/Day Years Used Date Smoking Tobacco: Never Assessed Sex and Gender Information Value Date Recorded Sex Assigned at Male 08/11/2022 10:17 AM EDT Legal Sex Male 10:17 AM EDT Gender Identity Male 08/11/2022 10:17 AM EDT Sexual Orientation Straight 08/11/2022 10 :17 AM EDT documented as of this encounter Miscellaneous Notes * Telephone Encounter - Fracny Melara RN - 06/26/2023 11:07 AM EDT [...] - 06/26/2023 10:13 AM EDT Tc from [facility] requesting a call from a nurse to speak about medication oxyCODONE (Roxicodone) 10 MG immediate release tablet. Pharmacy would like to know the chronic pain pt is having and why script is being receive with 7 days. Please contact Pharmacy at [phone] documented in this encounter Plan of Treatment Upcoming Encounters Date Type Department Care Team (Late st Contact Info) Description 10/24/2025 9:15 AM EST Office Visit [address] [address] Piedad Pacheco MD [address] [place] [address] 12/08/2025 1:30 PM EST Telemedicine [address] [address] Francy Melara, SLADE documented as of this encounter Visit Diagnoses Not on filedocumented in this encounter Additional Health Concerns Assessment Noted Time PHQ-9 Depression Total Score: 0 06/19/20 23 1:27 PM EDT documented as of this encounter Care Teams Supervisor Ore Dressing Relationship Specialty Start Date End Date Piedad Pacheco MD [address] [place] [address] PCP - General Family Medicine 10/26/20 documented as of this encounter
--- OUTSIDE RECORDS SUMMARY | 2025-09-05 09:05 | XMS_ITS | Encounter Summary ---
Author Organization [facility] Address 75 [facility] 7t [place] [address] Care Team Providers Care Honing Job Setter Name Role Phone Piedad Pacheco MD Primary Care Provide r Reason for Visit * Reason Onset Date Comments Appointment 12/26/2022 Encounter Details Date Type Department Care Team ([facility] Contact Info) Description 12/26/2022 Telephone [facility] ADULT DENTAL 230 [place], [place] [phone] Ruddy Vazquez DDS [address] [place] [address] Appointment Social History Tobacco Use Types Packs/Day [...] Description 10/24/2025 9:15 AM EST Office Visit [address] [address] Piedad Pacheco MD [address] [place] [address] 12/08/2025 1:30 PM EST Telemedicine [address] [phone] Francy Melara RN documented as of this encounter Visit Diagnoses Not on filedocumented in this encounter Care Teams Honing Job Setter Relationship Specialty Start Date End Date Piedad Pacheco MD [address] [place] [address] PCP - General Family Medicine 10/26/20 documented as of this encounter
--- OUTSIDE RECORDS SUMMARY | 2025-09-05 09:05 | XMS_ITS | Clinical Summary ---
Author Organization [facility] [facility] Address [address] [place] [address] Care Team Providers Care Supervisor Cellars Name Role Phone Piedad Pacheco MD Primary [...] Advance Directives For more information, please contact: [phone] Latest Code Status on File Code Status Date Activated Date Inactivated Comments Full Code 03/22/2024 2:04 AM 03/26/2024 1:02 AM This code status was ascertained in the following way: discussion with patient . Care Teams Supervisor Cellars Relationship Specialty Start Date End Date Piedad Pacheco MD [address] [place] [phone] PCP - General Internal Medicine 03/21/24
--- OUTSIDE RECORDS SUMMARY | 2025-09-05 09:05 | XMS_ITS | Encounter Summary ---
Author Organization [employer] Address 75 [facility] 7t [place] [address] Care Team Providers Care Film Archivist Name Role Phone Piedad Pacheco MD Primary Care Provide r Reason for Visit * Reason Onset Date Comments PT1 05/03/2024 Encounter Details Date Type Department Care Team ([facility] Contact Info) Description 05/03/2024 Telephone [facility] MEDICINE 230 [place], [place] [phone] Piedad Pacheco MD 230 [place] [address] PT1 Social History Tobacco Use Types Packs/Day [...] Provider name or facility name: Facility Address: [address] [place] [address] [address] [place] [address] Escort needed: Y/N: Yes will be going with pt Do you have a wheelchair: Y/N: Yes If yes- Manual or electric: electric Visits: 4-5 times a year documented in this encounter Plan of Treatment Upcoming Encounters Date Type Department Care Team (Late st Contact Info) Description 10/24/2025 9:15 AM EST Office Visit [facility] MEDICINE [address] [place] [address] Piedad Pacheco MD [address] [place] [address] 12/08/2025 1:30 PM EST Telemedicine [address] [address] Francy Melara RN documented as of this encounter Visit Diagnoses Not on filedocumented in this encounter Additional Health Concerns Assessment Noted Time PHQ-9 Depression Total Score: 0 07/14/20 11:16 AM EDT documented as of this encounter Care Teams Film Archivist Relationship Specialty Start Date End Date Piedad Pacheco MD 230 [place] [address] PCP - General Family Medicine 10/26/20 documented as of this encounter
--- OUTSIDE RECORDS SUMMARY | 2025-09-05 09:05 | XMS_ITS | Encounter Summary ---
Author Organization [employer] Address 75 [facility] 7t [place] [address] Care Team Providers Care Warehouse Logistics Coordinator Name Role Phone Piedad Pacheco MD Primary Care Provide r Reason for Visit * Reason Onset Date Comments Pt1 09/28/2024 Encounter Details Date Type Department Care Team ([facility] Contact Info) Description 09/28/2024 Telephone [facility] MEDICINE 230 [place], [place] [phone] Piedad Pacheco MD 230 [place] [address] Pt1 Social History Tobacco Use Types Packs/Day [...] name or facility name: Urology Facility Address: [address] [place] [address] Escort needed: Y/N: Yes Do you have a wheelchair: Y/N: Yes If yes- Manual or electric: Electric Visits: 1 x 3 months Patient calling requesting PT1 Home Address verified: Y/N: Yes Provider name or facility name: [facility] Address: [address] [place] [address] Escort needed: Y/N: Yes Do you have [...] Description 10/24/2025 9:15 AM EST Office Visit [facility] MEDICINE [address] [place] [address] Piedad Pacheco MD 230 [place] [address] 12/08/2025 1:30 PM EST Telemedicine [address] [address] Francy Melara RN documented as of this encounter Visit Diagnoses Not on filedocumented in this encounter Additional Health Concerns Assessment Noted Time PHQ-9 Depression Total Score: 0 07/14/20 23 11:16 AM EDT documented as of this encounter Care Teams Warehouse Logistics Coordinator Relationship Specialty Start Date End Date Piedad Pacheco MD [address] [place] [address] PCP - General Family Medicine 10/26/20 documented as of this encounter
--- OUTSIDE RECORDS SUMMARY | 2025-09-05 09:05 | XMS_ITS | Encounter Summary ---
Author Organization [employer] Address 75 [facility] 7t [place] [address] Care Team Providers Care Chair Mender Name Role Phone Piedad Pacheco MD Primary Care Provide r Encounter Details Date Type Department Care Team ([facility] st Contact Info) Description 11/22/2024 Telephone [facility] MEDICINE 230 [place], [place] [phone] Piedad Pacheco MD 230 [place], [place] [phone] Social History Tobacco Use Types Packs/Day Years [...] Description 10/24/2025 9:15 AM EST Office Visit [facility] MEDICINE [address] [place] [address] Piedad Pacheco MD [address] [place] [address] 12/08/2025 1:30 PM EST Telemedicine [address] [address] Francy Melara RN documented as of this encounter Visit Diagnoses Not on filedocumented in this encounter Additional Health Concerns Assessment Noted Time PHQ-9 Depression Total Score: 0 10/19/19 25 10:23 AM EST documented as of this encounter Care Teams Chair Mender Relationship Specialty Start Date End Date Piedad Pacheco MD [address] [place] [address] PCP - General Family Medicine 10/26/20 documented as of this encounter
--- OUTSIDE RECORDS SUMMARY | 2025-09-05 09:05 | XMS_ITS | Encounter Summary ---
Author Organization [employer] Address 75 [facility] 7t [place] [address] Care Team Providers Care Director Of Physician Practices Name Role Phone Piedad Pacheco MD Primary Care Provide r Reason for Visit * Reason Onset Date Comments Referral 07/21/2025 Encounter Details Date Type Department Care Team ([facility] Contact Info) Description 07/21/2025 Telephone [facility] MEDICINE 230 [place], [place] [phone] Piedad Pacheco MD 230 [place] [address] Referral Social History Tobacco Use Types Packs/Day Years [...] encounter Miscellaneous Notes * Telephone Encounter - Juno Enriquez - 07/21/2025 12:11 PM EDT Tc from pt requesting referral for orthopedics to be sent to [facility]. Any questions contact pt at [phone] documented in this encounter Plan of Treatment Upcoming Encounters Date Type Department Care Team (Late st Contact Info) Description 10/24/2025 9:15 AM EST Office Visit [facility] MEDICINE [address] [place] [address] Piedad Pacheco MD [address] [place] [address] 12/08/2025 1:30 PM EST Telemedicine [facility] MEDICINE [address] [place] [address] Francy Melara RN documented as of this encounter Visit Diagnoses Not on filedocumented in this encounter Additional Health Concerns Assessment Noted Time PHQ-9 Depression Total Score: 0 10/19/19 25 10:23 AM EST documented as of this encounter Care Teams Director Of Physician Practices Relationship Specialty Start Date End Date Piedad Pacheco MD 230 [place] [address] PCP - General Family Medicine 10/26/20 documented as of this encounter
--- OUTSIDE RECORDS SUMMARY | 2025-09-05 09:05 | XMS_ITS | Encounter Summary ---
Author Organization [employer] Address 75 [facility] 7t [place] [address] Care Team Providers Care Loom Fixer Helper Name Role Phone Piedad Pacheco MD Primary Care Provide r Reason for Visit * Reason Onset Date Comments Med Refill 08/17/2025 Encounter Details Date Type Department Care Team ([facility] Contact Info) Description 08/17/2025 Telephone [facility] MEDICINE 230 [place] [address] Piedad Pacheco MD 230 [place] [address] Med Refill Social History Tobacco Use Types [...] Telephone Encounter - Jen Cortez LPN - 08/17/2025 2:27 PM EST EXPENDITURE REQUISITION CLERK checked on 08/17/25. Ambien last sold on 07/27/25 #30. Metformin was sent on 03/27/25 90 day supply with 2 refills. * Telephone Encounter - Chris Briggs - 08/17/2025 2:23 PM EST TC from pt requesting medication refill. Medications needing refill: metFORMIN (Glucophage) 500 MG tablet zolpidem (Ambien) 10 MG tablet To be sent to: [facility] [address] [place] [address] documented in this encounter Plan of Treatment Upcoming Encounters Date Type Department Care Team (Late st Contact Info) Description 10/24/2025 9:15 AM EST Office Visit [facility] MEDICINE [address] [place] [address] Piedad Pacheco MD 230 [place] [address] 12/08/2025 1:30 PM EST Telemedicine [facility] MEDICINE 230 [place] [address] Francy Melara RN documented as of this encounter Visit Diagnoses Not on filedocumented in this encounter Additional Health Concerns Assessment Noted Time PHQ-9 Depression Total Score: 0 10/19/19 25 10:23 AM EST documented as of this encounter Care Teams Loom Fixer Helper Relationship Specialty Start Date End Date Piedad Pacheco MD 230 [place] [address] PCP - General Family Medicine 10/26/20 documented as of this encounter
--- OUTSIDE RECORDS SUMMARY | 2025-09-05 09:05 | XMS_ITS | Encounter Summary ---
Author Organization [employer] Address 75 [facility] 7t [place] [address] Care Team Providers Care Supermarket Manager Name Role Phone Piedad Pacheco MD Primary Care Provide r Reason for Visit * Reason Onset Date Comments Referral 07/25/2025 Encounter Details Date Type Department Care Team ([facility] Contact Info) Description 07/25/2025 Telephone [facility] MEDICINE 230 [place], [place] [phone] Piedad Pacheco MD 230 [place] [address] Referral Social History Tobacco Use Types Packs/Day [...] encounter Miscellaneous Notes * Telephone Encounter - Emma Waite - 07/25/2025 12:15 PM EDT Tc from pt stating that want the referral for Physical Therapy to be send to [facility] and not to [facility] Contact pt at [phone] documented in this encounter Plan of Treatment Upcoming Encounters Date Type Department Care Team (Late st Contact Info) Description 10/24/2025 9:15 AM EST Office Visit [facility] MEDICINE [address] [place] [address] Piedad Pacheco MD [address] [place] [address] 12/08/2025 1:30 PM EST Telemedicine [facility] MEDICINE [address] [place] [address] Francy Melara RN documented as of this encounter Visit Diagnoses Not on filedocumented in this encounter Additional Health Concerns Assessment Noted Time PHQ-9 Depression Total Score: 0 10/19/19 25 10:23 AM EST documented as of this encounter Care Teams Supermarket Manager Relationship Specialty Start Date End Date Piedad Pacheco MD [address] [place] [address] PCP - General Family Medicine 10/26/20 documented as of this encounter
--- OUTSIDE RECORDS SUMMARY | 2025-09-05 09:05 | XMS_ITS | Encounter Summary ---
Author Organization [employer] Address [address] [facility] 7t [place] [address] Care Team Providers Care Chemical Dependency Therapist Name Role Phone Piedad Pacheco MD Primary Care Provide r Reason for Visit * Reason Onset Date Comments PT-1 10/28/2024 Encounter Details Date Type Department Care Team ([facility] st Contact Info) Description 10/28/2024 Telephone [facility] MEDICINE [address] [place] [address] Piedad Pacheco MD [address] [place] [address] PT-1 Social History Tobacco Use Types Packs/Day [...] requesting status of PT-1 UPDATED PT-1 INFO [facility] Radiology APPROVED [address] 2x visits a month expires 11/07/25 * Telephone Encounter - Jessi Robison - 11/01/2024 2:47 PM EST Tc from pt requesting status of PT-1 as requesting a callback [phone] * Telephone Encounter - Fox Gaona - 10/28/2024 11:04 AM EST Patient calling requesting PT1 Home Address verified: Y/N: Yes Provider name or facility name: [facility] Escort needed: Y/N: No Do you have a wheelchair: Y/N: Yes If yes- Manual or electric: Electric Scooter Visits: (amount of visits) ( x monthly, weekly, daily) 3 times a month documented in this encounter Plan of Treatment Upcoming Encounters Date Type Department Care Team (Late st Contact Info) Description 10/24/2025 9:15 AM EST Office Visit [facility] MEDICINE [address] [place] [phone] Piedad Pacheco MD [address] [place] [phone] 12/08/2025 1:30 PM EST Telemedicine [address] [phone] Francy Melara RN documented as of this encounter Visit Diagnoses Not on filedocumented in this encounter Additional Health Concerns Assessment Noted Time PHQ-9 Depression Total Score: 0 10/19/19 25 10:23 AM EST documented as of this encounter Care Teams Chemical Dependency Therapist Relationship Specialty Start Date End Date Piedad Pacheco MD [address] [place] [phone] PCP - General Family Medicine 10/26/20 documented as of this encounter
--- OUTSIDE RECORDS SUMMARY | 2025-09-05 09:05 | XMS_ITS | Encounter Summary ---
Author Organization [employer] Address 75 [facility] 7t [place] [address] Care Team Providers Care Medical Receptionist Assistant Name Role Phone Piedad Pacheco MD Primary Care Provide r Reason for Visit * Reason Onset Date Comments Med Refill 09/26/2024 Encounter Details Date Type Department Care Team ([facility] Contact Info) Description 09/26/2024 Telephone [facility] MEDICINE 230 [place] [address] Piedad Pacheco MD 230 [place] [address] Med Refill Social History Tobacco Use Types [...] release tablet To be sent to: [facility] [address] [place] [address] documented in this encounter Plan of Treatment Upcoming Encounters Date Type Department Care Team (Late st Contact Info) Description 10/24/2025 9:15 AM EST Office Visit [facility] MEDICINE [address] [place] [phone] Piedad Pacheco MD [address] [place] [phone] 12/08/2025 1:30 PM EST Telemedicine [facility] [address] [place] [address] [phone] Francy Melara RN documented as of this encounter Visit Diagnoses Not on filedocumented in this encounter Additional Health Concerns Assessment Noted Time PHQ-9 Depression Total Score: 0 07/14/20 23 11:16 AM EDT documented as of this encounter Care Teams Medical Receptionist Assistant Relationship Specialty Start Date End Date Piedad Pacheco MD 230 [place] [address] PCP - General Family Medicine 10/26/20 documented as of this encounter
--- OUTSIDE RECORDS SUMMARY | 2025-09-05 09:05 | XMS_ITS | Encounter Summary ---
Author Organization [employer] Address [address] [place] [address] 7t [place] [address] Care Team Providers Care Patent Paralegal Name Role Phone Piedad Pacheco MD Primary Care Provide r Reason for Visit * Reason Comments Med Refill Encounter Details Date Type Department Care Team (Late Contact Info) Description 06/08/[address] [address] Name, MD [place] [address] [place] [phone] Social History Tobacco Use Types Packs/Day Years [...] Department Care Team (Late Contact Info) Description 10/24/2025 9:15 AM EST Office Visit [facility] MEDICINE [address] [place] [address] [phone] Piedad Pacheco MD [address] [place] [address] [phone] 12/08/2025 1:30 PM EST Telemedicine [address] [phone] Francy Melara RN documented as of this encounter Visit Diagnoses Not on filedocumented in this encounter Care Teams Patent Paralegal Relationship Specialty Start Date End Date Piedad Pacheco MD 230 [place] [address] PCP - General Family Medicine 10/26/20 documented as of this encounter
--- OUTSIDE RECORDS SUMMARY | 2025-09-05 09:05 | XMS_ITS | Encounter Summary ---
Author Organization [employer] Address 75 [facility] 7t [place] [address] Care Team Providers Care Knife Blade Polisher Name Role Phone Piedad Pacheco MD Primary Care Provide r Encounter Details Date Type Department Care Team ([facility] st Contact Info) Description 09/23/2024 Telephone [facility] MEDICINE [address] [place], [place] [phone] Piedad Pacheco MD 230 [place], [place] [phone] Social History Tobacco Use Types Packs/Day Years [...] Description 10/24/2025 9:15 AM EST Office Visit [facility] MEDICINE [address] [place] [phone] Piedad Pacheco MD [address] [place] [phone] 12/08/2025 1:30 PM EST Telemedicine [address] [phone] Francy Melara RN documented as of this encounter Visit Diagnoses Not on filedocumented in this encounter Additional Health Concerns Assessment Noted Time PHQ-9 Depression Total Score: 0 07/14/20 23 11:16 AM EDT documented as of this encounter Care Teams Knife Blade Polisher Relationship Specialty Start Date End Date Piedad Pacheco MD [address] [place] [phone] PCP - General Family Medicine 10/26/20 documented as of this encounter
--- OUTSIDE RECORDS SUMMARY | 2025-09-05 09:05 | XMS_ITS | Encounter Summary ---
Author Organization [employer] Address 75 [facility] 7t [place] [address] Care Team Providers Care Garageman Name Role Phone Piedad Pacheco MD Primary Care Provide r Encounter Details Date Type Department Care Team (Late st Contact Info) Description 01/09/2023 Orders Only [facility] [address] [place], [place] [phone] Jen Cortez LPN Social History Tobacco Use [...] 9:15 AM EST Office Visit [facility] MEDIC[facility] [address] [place] [address] [phone] Piedad Pacheco MD [address] [place] [phone] 12/08/2025 1:30 PM EST Telemedicine [address] [phone] Francy Melara RN documented as of this encounter Visit Diagnoses Not on filedocumented in this encounter Care Teams Garageman Relationship Specialty Start Date End Date Piedad Pacheco MD [address] [place] [phone] PCP - General Family Medicine 10/26/20 documented as of this encounter
--- OUTSIDE RECORDS SUMMARY | 2025-09-05 09:05 | XMS_ITS | Encounter Summary ---
Author Organization [employer] Address [address] [facility] 7t [place] [address] Care Team Providers Care Patient Relations Representative Name Role Phone Piedad Pacheco MD Primary Care Provide r Reason for Visit * Reason Onset Date Comments Med Refill 10/28/2024 Encounter Details Date Type Department Care Team ([facility] Contact Info) Description 10/28/2024 Telephone [facility] MEDICINE 230 [place] [address] Piedad Pacheco MD [address] [place] [address] Med Refill Social History Tobacco Use Types [...] 3:19 PM EST Medication was sent to [place] [id number] on 10/20/24. * Telephone Encounter - Marguerite Irvin - 10/28/2024 3:17 PM EST TC from pt requesting medication refill. Medications needing refill : loratadine (Claritin) 10 MG tablet To be sent to: [facility] [address] [place] [address] documented in this encounter Plan of Treatment Upcoming Encounters Date Type Department Care Team (Late st Contact Info) Description 10/24/2025 9:15 AM EST Office Visit [facility] MEDICINE [address] [place] [address] [phone] Piedad Pacheco MD [address] [place] [address] 12/08/2025 1:30 PM EST Telemedicine [facility] MEDICINE 230 [place], [place] [phone] Francy Melara, RN documented as of this encounter Visit Diagnoses Not on filedocumented in this encounter Additional Health Concerns Assessment Noted Time PHQ-9 Depression Total Score: 0 10/19/19 25 10:23 AM EST documented as of this encounter Care Teams Patient Relations Representative Relationship Specialty Start Date End Date Piedad Pacheco MD [address] [place] [address] [phone] PCP - General Family Medicine 10/26/20 documented as of this encounter
[2025-09-05 09:06] VITALS: BP 124/82; PULSE 84; BMI 36.3
--- NOTE | 2025-09-05 09:06 | A.OFFVIS_ITS ---
Vital Signs 09/05/25 09:06 Height 5 ft 6 in Weight 225 lb BMI 36.3 BP 124/82 Blood Pressure Location Rt brachial Position Sitting Pulse 84 Pulse Source Pulse Oximeter Intake Visit Reasons: r/s 07/31/25 s/p cath HS Gallery Assistant Required: No Gallery Assistant Services: Gallery Assistant Offered & Declined Allergies No Known Allergies Allergy (Verified 09/05/25 09:10) Medication List - Last Reconciled 09/05/25 by TONIA Quinn aspirin (Adult Aspirin Regimen) 81 mg PO DAILY atorvastatin 80 mg PO DAILY clopidogrel 75 mg PO DAILY dapagliflozin propanediol (Farxiga) 10 mg PO DAILY famotidine 20 mg PO BID metformin 500 mg PO BID oxycodone 5 mg PO Q6H PRN ropinirole 2 mg PO DAILY tadalafil 20 mg PO DAILY PRN zolpidem 10 mg PO BEDTIME PRN HPI HPI r/s 07/31/25 s/p cath HS: Details: The patient is a 65 year old individual presenting for follow-up after a recent cardiac catheterization. A recent CTA of the coronaries had revealed probable severe stenosis of the mid-LAD and circumflex arteries. A cardiac catheter ization on 07/13/2025 confirmed significant LAD and proximal circumflex stenosis with a normal RCA, and a drug-eluting stent was placed in the mid-LAD. A staged PCI to the left circumflex is planned. An echocardiogram in the past showed an EF of 40-50%, but a more recent one showed improvement to 50-55%. 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 Current medications include aspirin, atorvastatin, clopidogrel. The patient affirms medication adherence and denies any bleeding problems. Today he reports significant issues with chronic back pain and limited mobility. He is using an electric scooter and ambulates only short distances with a cane. The patient also reports worsened shortness of breath with activity but no shortness of breath at rest or when he lays down. No chest discomfort at rest or with activity. His right radial cath site feels good. 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 Heart failure Ischemic stroke Balanitis Osteomyelitis Moderate episode of recurrent major depressive disorder Restless leg syndrome History of cocaine use Essential (primary) hypertension CKD (chronic kidney disease) Hx of exertional chest pain Dry eye Other hyperlipidemia Urinary incontinence Lumbar radiculopathy COPD (chronic obstructive pulmonary disease) Diabetes Elevated alanine aminotransferase (ALT) level History of hepatitis B Hepatitis B immune Obstructive sleep apnea Fibromyalgia Hepatitis A immune Cervical disc disease Metabolic syndrome Cardiovascular event risk Surgical History (Updated 09/05/25 @ 12:36 by Diane Rg NP-C) History of cardiac cath Status post insertion of spinal cord stimulator Family History Father Prostate cancer Heart problem Mother Heart attack DM2 (diabetes mellitus, type 2) Sister Stomach cancer Brother Alzheimer disease Social History Household Members: Significant Other Housing: House Do you presently have visiting nurse or other home services: No Alcohol intake: current Alcohol intake frequency: does not drink Alcohol type: hard liquor Patient Tobacco Use Status: Current everyday Tobacco user Tobacco use type: Cigarette Cigarettes Per Day: 2 service: No Review of Systems Const Details: in electric scooter All systems reviewed & are unremarkable except as noted in HPI and below ENT Denies dizziness Card Denies chest pain, Denies chest pain at rest, Denies chest pain with activity, Denies rapid heart rate, Denies pedal edema, Denies edema, Denies leg edema, Denies lightheadedness, Denies palpitations, Denies dyspnea, Denies dyspnea on exertion and Denies orthopnea Resp Denies cough, Denies dyspnea and Denies dyspnea on exertion GI Denies hematochezia and Denies change in stool character Musc Details: back and leg pain Reports abnormal gait, Reports limited range of motion, Denies muscle cramps, Denies muscle weakness, Denies numbness, Denies radiating pain into limb, Denies stiffness and Denies tingling Neuro Reports abnormal gait, Denies dizziness, Denies numbness and Denies tingling Endo Denies palpitations Physical Exam Vital Signs: Last Vital Signs Pulse 84 09/05/25 09:06 BP 124/82 09/05/25 09:06 BMI result Body Mass Index 36.3 Const Other: uncomfortable appearance - reports back pain General: cooperative Orientation/consciousness: patient oriented x3 Neck Neck: Yes normal visual inspection and Yes no JVD Resp Effort & Inspection: normal respiratory effort Auscultation: clear to auscultation bilaterally, no crackles, no rales, no rhonchi and no wheezes Cardio Rate: regular rate Rhythm: regular rhythm Heart sounds: S1 normal heart sound present, S2 normal heart sound present, no gallops, no murmurs and no rubs Neuro General: patient oriented x3 Extrem Other: right radial cath site with easily palpable right radial pulse General: Yes normal to inspection, No no pedal edema and No calf tenderness Psych Appearance: grossly normal Mental Status: mental status grossly normal Speech and movement: Normal speech and movement present Assessment & Plan Assessment & Plan (1) Atherosclerotic cardiovascular disease: Code(s): I25.10 - Atherosclerotic heart disease of [place] coronary artery without angina pectoris Category: Medical Plan: A recent CTA of the coronary arteries showed probable severe stenosis of the mid LAD and noncalcified plaque obscuring the lumen of the left circumflex at the takeoff of the 2nd OM causing probable severe stenosis. He underwent cardiac catheterization showing significant LAD stenosis and proximal circumflex stenosis. BARBRA were placed in the proximal and mid LAD. Plan is for staged PCI of the left circumflex. Currently not reporting chest discomfort. He does have shortness of breath with exertion which could be multifactorial. Reviewed the need for repeat catheterization and he is agreeable. Will order cardiac catheterization, PCI of LAD., preprocedure labs. Continue aspirin indefinitely. Continue clopidogrel, high-dose atorvastatin. Cardiology follow-up 2 weeks post procedure (2) History of cardiac cath: Comment: 07/13/2025 proximal LAD 80% stenosis, mid LAD 90% stenosis, distal LAD 100% stenosis, proximal circumflex 90% stenosis and RCA normal Code(s): Z98.890 - Other specified postprocedural states Category: Surgical Plan: Right radial catheterization site well healed (3) Cardiomyopathy: Code(s): I42.9 - Cardiomyopathy, unspecified Category: Medical Plan: Echocardiogram 08/24/2024 showed EF 50-55%, grade 1 diastolic dysfunction, normal valves. There was possible hypokinesis of the basal to mid inferior w all. No evidence of heart failure on examination. Plan I reviewed the recent cardiac catheterization findings with the patient, explaining that two of the main heart arteries had significant blockages. I explained that one artery, the LAD, was successfully opened with a stent, but the circumflex artery on the side of the heart also has a blockage that needs to be treated. I informed the patient that a repeat procedure is planned to place a stent in that vessel. We discussed that opening the second artery will improve overall blood flow to the heart and may improve the patient's breathing. I acknowledged his symptoms of increased back pain and difficulty walking and recommended he discuss this further with his PCP. Orders: Orders Basic Metabolic Panel Today I25.10 - Atherosclerotic heart disease of [place] coronary artery without angina pectoris Prothrombin Time INR Today I25.10 - Atherosclerotic heart disease of [place] coronary artery without angina pectoris Cardiac Cath LT w PCI Today I25.10 - Atherosclerotic heart disease of [place] coronary artery without angina pectoris Complete Blood Count Auto Diff Today I25.10 - Atherosclerotic heart disease of [place] coronary artery without angina pectoris Patient Instructions: - You have blockages in your heart arteries. - We placed a stent, which is a small mesh tube, in one of the arteries to open it up. - You will need another procedure to place a stent in a second blocked artery. - This second procedure should help your heart get better blood flow and may improve your breathing. - We will find out the date for your next procedure before you leave today. - Continue taking all of your prescribed medications, especially your blood thinners. - Contact the office if you experience any chest pain or worsening shortness of breath. Patient was informed and verbally consented to the use of an ambient scribe for clinic note documentation during this visit. Visit time spent on chart review, interview, assessment, orders, documentation. Coding Level of Care Code Est Pt Level 4 (08754) Complex visit Add On G2211 Diagnoses Atherosclerotic cardiovascular disease I25.10 History of cardiac cath Z98.890 Cardiomyopathy I42.9 Time Spent (min) 28
--- OUTSIDE RECORDS SUMMARY | 2025-09-05 09:06 | XMS_ITS | Encounter Summary ---
Author Organization [employer] Address [address] [facility] 7t [place] [address] Care Team Providers Care Fashion Merchandiser Name Role Phone Piedad Pacheco MD Primary Care Provide r Reason for Visit * Reason Onset Date Comments Nurse Triage 12/02/2023 Encounter Details Date Type Department Care Team ([facility] Contact Info) Description 12/02/2023 Telephone [facility] MEDICINE 230 [place], [place] [phone] Piedad Pacheco MD 230 [place] [address] Nurse Triage Social History Tobacco Use Types [...] referral to specialist regarding hospital visit at [facility] 10/19/23 . Pt was seen there sent home and then returned to [facility] and was admitted and sent to [facility] in [place] for rehab. Unclear as to dates, no information is on the chart. Pt did have UTI and pulido catheter and unclear if this was resolved. Pt was told to geta referral to specialist ? as to whether this is regarding back pain or UTI. Advised Pt has an apt with PCP 12/16/23 and can come to [facility] today open till 8pm for any acute problem. Pt reports will wait to see PCP. Advised will send this information to nursing team. Pt agrees and reports that PCP knows all information regarding this situation. Pt does have new insurance [employer] ID # is [id number] Protocol Used: Information Only Call - No [...] Description 10/24/2025 9:15 AM EST Office Visit [facility] MEDICINE [address] [place] [phone] Piedad Pacheco MD [address] [place] [phone] 12/08/2025 1:30 PM EST Telemedicine [address] [phone] Francy Melara RN documented as of this encounter Visit Diagnoses Not on filedocumented in this encounter Additional Health Concerns Assessment Noted Time PHQ-9 Depression Total Score: 0 07/14/20 23 11:16 AM EDT documented as of this encounter Care Teams Fashion Merchandiser Relationship Specialty Start Date End Date Piedad Pacheco MD [address] [place] [phone] PCP - General Family Medicine 10/26/20 documented as of this encounter
--- OUTSIDE RECORDS SUMMARY | 2025-09-05 09:06 | XMS_ITS | Encounter Summary ---
Author Organization [employer] Address [address] [facility] 7t [place] [address] Care Team Providers Care Youth Director Name Role Phone Piedad Pacheco MD Primary Care Provide r Reason for Visit * Reason Comments Med Refill Encounter Details Date Type Department Care Team ([facility] st Contact Info) Description 08/27/2023 Refill [facility] MEDICINE [address] [place], [place] [phone] Piedad Pacheco MD 230 [place] [address] Restless leg syndrome Social History Tobacco Use [...] Description 10/24/2025 9:15 AM EST Office Visit [address] [address] Piedad Pacheco MD [address] [place] [address] 12/08/2025 1:30 PM EST Telemedicine [address] [phone] Francy Melara RN documented as of this encounter Visit Diagnoses Diagnosis Restless leg syndrome Restless legs syndrome (RLS) documented in this encounter Additional Health Concerns Assessment Noted Time PHQ-9 Depression Total Score: 0 07/14/20 23 11:16 AM EDT documented as of this encounter Care Teams Youth Director Relationship Specialty Start Date End Date Piedad Pacheco MD [address] [place] [phone] PCP - General Family Medicine 10/26/20 documented as of this encounter
--- OUTSIDE RECORDS SUMMARY | 2025-09-05 09:06 | XMS_ITS | Encounter Summary ---
Author Organization [employer] Address 75 [facility] 7t [place] [address] Care Team Providers Care Blister Packing Machine Tender Name Role Phone Piedad Pacheco MD Primary Care Provide r Reason for Visit * Reason Onset Date Comments Med Refill 02/08/2024 Encounter Details Date Type Department Care Team ([facility] Contact Info) Description 02/08/2024 Telephone [facility] MEDICINE 230 [place], [place] [phone] Piedad Pacheco MD 230 [place] [address] Med Refill Social History Tobacco Use Types [...] 10:24 AM EDT Medication was sent to [facility] 238 on 09/18/23 90 day supply with 1 refill. * Telephone Encounter - Chris Briggs - 02/08/2024 9:59 AM EDT TC from pt requesting medication refill. Medications needing refill: rOPINIRole (Requip) 2 MG tablet To be sent to: [id number] documented in this encounter Plan of Treatment Upcoming Encounters Date Type Department Care Team (Late st Contact Info) Description 10/24/2025 9:15 AM EST Office Visit [facility] MEDICINE [address] [place] [phone] Piedad Pacheco MD [address] [place] [address] [phone] 12/08/2025 1:30 PM EST Telemedicine [facility] MEDICINE [address] [place] [phone] Francy Melara RN documented as of this encounter Visit Diagnoses Not on filedocumented in this encounter Additional Health Concerns Assessment Noted Time PHQ-9 Depression Total Score: 0 10/03/20 23 11:16 AM EDT documented as of this encounter Care Teams Blister Packing Machine Tender Relationship Specialty Start Date End Date Piedad Pacheco MD [address] [place] [address] PCP - General Family Medicine 10/26/20 documented as of this encounter
--- OUTSIDE RECORDS SUMMARY | 2025-09-05 09:06 | XMS_ITS | Encounter Summary ---
Author Organization [email or web address] Address 75 [facility] 7t [place] [address] Care Team Providers Care Calcine Furnace Loader Name Role Phone Piedad Pacheco MD Primary Care Provide r Reason for Visit * Reason Comments Med Refill Encounter Details Date Type Department Care Team ([facility] st Contact Info) Description 12/01/2023 Refill [facility] MEDICINE 230 [place], [place] [phone] Name, MD [place] [address] [place] [address] Social History Tobacco Use Types Packs/Day Years [...] Description 10/24/2025 9:15 AM EST Office Visit [address] [address] Piedad Pacheco MD [address] [place] [address] 12/08/2025 1:30 PM EST Telemedicine [facility] MEDICINE [address] [place] [phone] Francy Melara RN documented as of this encounter Visit Diagnoses Not on filedocumented in this encounter Additional Health Concerns Assessment Noted Time PHQ-9 Depression Total Score: 0 07/14/20 23 11:16 AM EDT documented as of this encounter Care Teams Calcine Furnace Loader Relationship Specialty Start Date End Date Piedad Pacheco MD [address] [place] [address] PCP - General Family Medicine 10/26/20 documented as of this encounter
--- OUTSIDE RECORDS SUMMARY | 2025-09-05 09:06 | XMS_ITS | Clinical Summary ---
Author Organization [employer] Address [address] [place] [address] Care Team Providers Care Childcare Teacher Name Role Phone Piedad Pacheco MD [...] bedtime. Active Blood Glucose Monitoring Suppl (FreeStyle [place] Lite) w/Device kitIndications:T ype 2 diabetes mellitus with hyperglycemia, without long-term current use of insulin (HCC) Use to test blood sugar 2 times daily 1 kit 024 Active Lancets miscIndications: Type 2 diabetes mellitus with hyperglycemia, without long-term current use of insulin (HCC) Use to test blood sugar 2 times daily 100 each 2 024 Active Alcohol Swabs 70 % padsIndications: Type 2 diabetes mellitus with hyperglycemia, without long-term current use of insulin ([facility]) Use to test blood sugar 2 times [...] at bed time 90 tablet 025 Active naloxone (Narcan) 4 [...] (Plavix) 75 MG tabletIndication s:Ischemic stroke (CMS/HCC) ([facility]) TAKE 1 TABLET BY MOUTH EVERY DAY 30 tablet 025 Active metFORMIN (Glucophage) 500 MG tabletIndication s:Type 2 diabetes mellitus with hyperglycemia, without long-term current use of insulin ([facility]) TAKE 1 TABLET BY MOUTH WITH BREAKFAST AND EVENING MEAL 180 tablet 2 025 Active Cialis 20 MG tablet TAKE 1 TABLET BY MOUTH 45 MINUTES BEFORE SEXUAL ACTIVITY DIRECTED 10 tablet Active budesonide-formo terol (Symbicort) 160-4.5 MCG/ACT inhalerIndicatio ns:Chronic obstructive pulmonary disease, unspecified COPD type (CMS/HCC) ([facility]) Inhale 2 puffs in the morning and at bedtime. Rinse mouth with water after use to reduce aftertaste and incidence of candidiasis. Do not swallow. 1 each 11 025 2025 Active pantoprazole (ProtoNix) 20 MG EC tabletIndication s:Heartburn Take 1 tablet (20 mg) by mouth before breakfast. Do not crush, chew, or split. 30 tablet 11 025 2025 Active rOPINIRole (Requip) 2 MG tabletIndication s:Restless Leg Syndrome TAKE 1 TABLET BY MOUTH THREE TIMES DAILY 270 tablet 1 Active famotidine (Pepcid) 20 MG tablet TAKE 1 TABLET BY MOUTH TWICE A DAY 180 tablet 025 Active EQ Aspirin Adult Low Dose 81 MG EC tabletIndication s:Ischemic stroke ([facility]/HCC) ([facility]) TAKE 1 TABLET BY MOUTH EVERY DAY 90 tablet 025 Active Farxiga 10 MGIndications:Ty pe 2 diabetes mellitus with hyperglycemia, without long-term current use of insulin ([facility]) TAKE 1 TABLET BY MOUTH EVERY DAY 90 tablet 025 Active atorvastatin (Lipitor) 80 MG tabletIndication s:Ischemic stroke (CMS/HCC) ([facility]) TAKE 1 TABLET BY MOUTH DAILY AT BEDTIME 90 tablet Active oxyCODONE (Roxicodone) 5 MG immediate release tabletIndication s:Lumbar radiculopathy Take 1 tablet (5 mg) by mouth every 8 (eight) hours if needed for severe pain for up to 28 days. Do not start before August 18, 2025. 84 tablet 025 2024 Active zolpidem (Ambien) 10 MG tabletIndication s:Insomnia, unspecified type TAKE 1 TABLET BY MOUTH NEEDED AT BEDTIME FOR SLEEP 30 tablet 1 11/14/2 025 Active Farxiga 10 MGIndications:Ty pe 2 diabetes mellitus with hyperglycemia, without long-term current use of insulin (HCC) TAKE 1 TABLET BY MOUTH EVERY DAY 90 tablet 1 025 2024 Discontinued atorvastatin (Lipitor) 80 MG tabletIndication s:Ischemic stroke (CMS/HCC) (HCC) Take 1 tablet (80 mg) by mouth at bedtime. 90 tablet 025 2024 Discontinued zolpidem (Ambien) 10 MG tabletIndication s:Insomnia, unspecified [...] to 28 days. Do not start before July 21, 2025. 84 tablet 2024 Discontinued(R eorder (will not trigger notification to Pharmacy)) Active Problems Problem Noted Date Diagnosed Date Coronary artery disease invo lving [place] coronary artery of [place] heart without angina pectoris 07/18/2025 Assessment & Plan (07/18/2025 1:02 PM EDT): Continue to follow-up closely with cardiology do not miss any appointment continue to take medications as prescribed I will obtain records regarding recently cardiac cath that was done Spondylosis of lumbosacral spine with radiculopa thy 07/18/2025 Assessment & Plan (07/18/2025 1:05 PM EDT): I refer patient to physical therapy and to orthopedics continue with same oxycodone 5 mg every 8 hours Heartburn 07/18/2025 Assessment & Plan (07/18/2025 1:04 PM EDT): I advise patient to avoid NSAIDs, spicy and acid food, I advise to eat at the same time every day, I advise to elevate the head of the bed and take medications as prescribe Today I prescribed pantoprazole 20 mg in the morning before breakfast Hemiparesis affecting right side as late effect of cerebrovascular accident ([facility]) 05/22/2025 Assessment & Plan (07/18/2025 1:04 PM EDT): Patient completed physical therapy Long-term current use of opiate analgesic 2024 Cardiomyopathy 12/27/2024 Assessment & Plan (12/27/2024 12:30 PM EDT): Patient is currently being followed by Dr. Ricketts he has an upcoming appointment on December 29, 2024 he is currently on medications as above plus Farxiga, currently patient's seems to be clinically compensated Cardiology did order for him on previous appointment echocardiogram and stress test I do not have results with me Allergic rhinitis 10/19/2024 Ischemic stroke ([facility]) 04/26/2024 Assessment & Plan (12/27/2024 12:29 PM EDT): Patient had an ischemic stroke approximately 9 months ago he is currently taking atorvastatin 80 mg plus aspirin 81 mg plus clopidogrel 75 mg medications are currently optimized. At the time of the hospitalization complete workup was done. Heart failure 04/26/2024 Assessment & Plan (07/18/2025 1:02 PM EDT): Continue to follow-up with cardiology Colon cancer screening 12/16/2023 Chronic midline low back pain without sciatica 0 06/19/2023 Infection of vertebra ([facility]) 06/19/2023 Assessment & Plan (12/16/2023 3:50 PM [...] EDT): Patient will be following with urology Autumn 06/18/2023 Dry eyes 06/18/2023 Metabolic syndrome X 06/18/2023 Severe obesity (CMS/HCC) 06/18/2023 Tinea cruris 06/18/2023 Type 2 diabetes mellitus without complication Type 2 diabetes mellitus 07/11/2020 Assessment & Plan (07/18/2025 1:03 PM EDT): Diabetes is: controlled - Lab Results Component Value Date HGBA1C 6.5 (A) 07/18/2025 HGBA1C 6.4 (A) 10/19/2024 HGBA1C 6.2 (A) 04/26/2024 - Lab Results Component Value Date MICROALBUR 0.2 12/19/2020 CREATININE 1.02 06/21/2025 -Changes: None - Diabetic eye exam: Up-to-date - Diabetic foot exam: Pending - Continue lifestyle modifications - Continue current medications - Follow up: 3 months Assessment & Plan (12/27/2024 12:25 PM EDT): [...] glucose log Chronic obstructive lung disease 11/09/2019 Assessment & Plan (07/18/2025 1:05 PM EDT): I will start patient on Symbicort to be used twice daily and as needed Obstructive sleep apnea syndrome 11/09/2019 ALT (SGPT) [...] use 04/24/2017 Recurrent major depressive episodes, moderate (C MS/HCC) 04/24/2017 Assessment & Plan (07/18/2025 1:04 PM EDT): Patient tells me he feels stable he does not need medications or therapy for now Encounters Date Type Department Care Team Description 08/25/2025 11:30 AM EST Telemedicine [address] [phone] Francy Melara RN Long-term current use of opiate analgesic 08/25/2025 Refill [facility] [address] [place] [address] Piedad Pacheco MD Insomnia, unspecified type 08/25/2025 Travel 08/25/2025 Telephone [facility] [address] [place] [address] Francy Melara, RN NCNS Tele [employer] RV 08/17/2025 Refill [facility] [address] [place] [address] Piedad Pacheco MD Lumbar radiculopathy 08/17/2025 Telephone [facility] [address] [place] [address] Piedad Pacheco MD Med Refill 08/17/2025 Refill [facility] [address] [place] [phone] Piedad Pacheco MD Type 2 diabetes mellitus with hyperglycemia, without long-term current use of insulin (HCC); Ischemic stroke ([facility]) (HCC); Insomnia, unspecified type 08/09/2025 Orders Only [facility] [address] [place] [phone] Piedad Pacheco MD Spondylosis of lumbosacral spine with radiculopathy (Primary Dx) 08/04/2025 Telephone [facility] [address] [place] [phone] Piedad Pacheco MD shelbie recall 08/01/2025 Refill [facility] [address] [place] [phone] Piedad Pacheco MD Ischemic stroke ([facility]) (HCC) 07/26/2025 Refill [facility] [address] [place] [phone] Piedad Pacheco MD 07/25/2025 Telephone [facility] [address] [place] [phone] Piedad Pacheco MD Referral 07/25/2025 Telephone [facility] [address] [place] [phone] Piedad Pacheco MD Med Refill 07/24/2025 Refill [facility] [address] [place] [address] Piedad Pacheco MD Restless leg syndrome 07/21/2025 Telephone [facility] [address] [place] [address] Piedad Pacheco MD Referral 07/20/2025 Refill [facility] [address] [place] [address] Piedad Pacheco MD Lumbar radiculopathy 07/18/2025 10:00 AM EDT Office Visit [facility] [address] [place] [address] Piedad Pacheco MD Hemiparesis affecting right side as late effect of cerebrovascular accident (CMS/HCC) (HCC); Chronic heart failure, unspecified heart failure type (HCC); Chronic obstructive pulmonary disease, unspecified COPD type (CMS/HCC) (HCC); Recurrent major depressive episodes, moderate (CMS/HCC) (HCC); Dietary counseling; Exercise counseling; Type 2 diabetes mellitus with hyperglycemia, without long-term current use of insulin (HCC); Coronary artery disease involving [place] coronary artery of [place] heart without angina pectoris; Spondylosis of lumbosacral spine with radiculopathy; Heartburn 07/18/2025 Travel 07/17/2025 Telephone [facility] [address] [place] [address] Piedad Pacheco MD Chart Prep 07/17/2025 Refill [facility] [address] [place] [address] Piedad Pacheco MD 07/11/2025 Patient Outreach [facility] [address] [place] [phone] Piedad Pacheco MD Pre-visit Planning (SDTX screening completed on 10/19/2024) 06/21/2025 Orders Only GENERIC EXTERNAL DATA DEPARTMENT Provider, Generic External Data 06/20/2025 Refill [facility] [address] [place] [address] Piedad Pacheco MD Insomnia, unspecified type 06/19/2025 9:30 AM EDT Telemedicine [address] [address] Francy Melara RN Long-term current use of opiate analgesic 06/19/[address] [address] Francy Melara RN Lumbar radiculopathy 06/19/2025 Travel 06/15/2025 10:30 AM EDT Office Visit [address] [phone] Tanya Garcia MD Chronic midline low back pain without sciatica (Primary Dx) 06/15/[address] [address] Piedad Pacheco MD Lumbar radiculopathy 06/15/2025 Travel 06/07/[address] [address] Francy Melara RN NCNS [employer] Tele today from Last 3 Months Immunizations Immunization Administration [...] Sign Reading Time Taken Comments Blood Pressure 140/80 07/18/2025 10:52 AM EDT Pulse 102 07/18/2025 10:52 AM EDT Temperature 36.6 C (97.8 F) 12/27/2024 11:56 AM EDT Respiratory Rate 17 07/18/2025 10:52 AM EDT Oxygen Saturation 93% 07/18/2025 10:52 AM EDT Inhaled Oxygen Concentration - - Weight 103 kg (226 lb 3.2 oz) 12/27/2024 11:56 A M EDT Height 167.6 cm (5' 6 ) 12/27/2024 11:56 AM EDT Body Mass Index 36.51 12/27/2024 11:56 AM EDT Plan of Treatment Upcoming Encounters Date Type Department Care Team (Late st Contact Info) Description 10/24/2025 9:15 AM EST Office Visit [facility] [address] [place] [address] Piedad Pacheco MD [address] [place] [address] 12/08/2025 1:30 PM EST Telemedicine [facility] [address] [facility] [address] Francy Melara RN Health Maintenance Due Date Last Done Comments CT Colonography 1961 Colonoscopy 1961 FIT 1961 Sigmoidoscopy 1961 Disability Screening 1961 Diabetes: Foot Exam 1971 RSV Patients and Patients Aged 60 years or older (1 - Risk 50-74 years 1-dose series) 2011 Zoster Vaccines (1 of 2) 2011 Pneumococcal Vaccine: 50+ Years (2 of 2 - PCV) 08/29/2020 08/29/2019 Diabetes: Urine Protein Screening 12/19/2021 12/19/2020 Dental Prophylaxis 01/14/2022 07/15/2021 Dental X-Ray: Bitewings 07/03/2022 07/02/2021 Dental Oral Exam 02/07/2023 08/08/2022, 07/02/2021 FOBT 09/11/2023 09/11/2022 Dental X-Ray: Full Mouth 11/15/2024 11/14/2021, 06/13 COVID-19 Vaccine ( season) 2025 Influenza Vaccine (#1) 2025 , 08/29/2019, 07/23/2017 Lipid Panel 08/08/2025 08/08/2024, 03, 07/06/2020 Colorectal Cancer Screening 09/11/2025 FIT DNA/Cologuard 09/11/2025 09/11/2022 Alcohol/Substance Use Screening 10/19/2025 10/19/2024 Depression Screening 10/19/2025 10/19/2024, 10/19/19 25 SDOH Screening 10/19/2025 10/19/2024 Diabetes: Hemoglobin A1C 01/16/2026 025, 10/19/2024, 04/26/2024, Additional history exists Tobacco Screening 07/18/2026 07/18/2025 Eye Exam 12/15/2026 12/15/2024, 11/13, 12/01/2024, Additional [...] on patient's age to complete this topic Goals Goal Patient Goal Type Associated Problems Recent Progress Patient-Stated? Author Help patients manage their type 2 diabetes Care Plan Help patients manage their type 2 diabetes No Francy Melara RN Patient has chronic kidney disease Care Plan Patient has chronic kidney disease Francy Cortez RN Patient has chronic kidney disease Care Plan Patient has chronic kidney disease Francy Cortez RN Patient has chronic kidney disease Care Plan Patient has chronic kidney disease No Emma Penaloza Procedures Procedure Name Priority Date/Time Associated Diagnosis Comments POCT GLYCATED HEMOGLOBIN, TOTAL Routine 07/18/2025 10:31 AM EDT Type 2 diabetes mellitus with hyperglycemia, without long-term current use of insulin (HCC) POCT GLUCOSE Routine 07/18/2025 10:31 AM EDT Type 2 diabetes mellitus with hyperglycemia, without long-term current use of insulin (HCC) BASIC METABOLIC PANEL Routine 06/21/2025 11:22 AM EDT PROTHROMBIN TIME-INR Routine 06/21/2025 11:22 AM EDT CBC Routine 06/21/2025 11:22 AM EDT AMB REFERRAL TO OPHTHALMOLOGY Routine 12/15/2024 Disorder of eyelid LIPID PANEL, STANDARD Routine 08/08/2024 2:44 PM [...] Relevant to Health Maintenance Results * (ABNORMAL) POCT Hgb A1c (07/18/2025 10:31 AM EDT) Hemoglobin A1C 6.5(A) 4.0 - 5.7 % QC Media Lot # [id number] Lot# Expiration Date [id number] Blood 07/18/2025 10:3 1 AM EDT Piedad Little MD POINT OF CARE TEST EN TER/EDIT ORDERABLES Final Result * (ABNORMAL) POCT Glucose (07/18/2025 10:31 AM EDT) Pathologist [facility] Glucose Blood, POC 223(A) 60 - 200 mg/dL QC Media Lot # [id number] Lot# Expiration Date Blood Capillary blood specimen / Unknown 07/18/2025 10:31 AM EDT Piedad Little MD POINT OF CARE TEST EN TER/EDIT ORDERABLES Final Result * (ABNORMAL) Prothrombin Time-INR (06/21/2025 11:22 AM EDT) [facility] Prothrombin Time 9.1(L) 10.9 - 12.4 SEC [facility] INTERNATIONAL NORM RATIO 0.8(L) 0.9 - 1.1 [facility] Comment:INTERNATIONAL NORMAL IZED RATIO (INR) [...] ORDERAB LES Final Result Performing Organization Address City/State/[facility] Co de Phone Number [facility] [address] [place] [phone] * (ABNORMAL) CBC (06/21/2025 11:22 AM EDT) [facility] White Blood Count 6.4 4.8 - 10.8 X10*3/uL [facility] Red Blood Count 5.44 4.60 - 5.80 X10*6/uL [facility] Hemoglobin 16.2 14.0 - 18.0 g/dl [facility] Hematocrit 48.5 42.0 - 52.0 % [facility] Mean Corpuscular Volume 89.2 80.0 - 98.0 fL [facility] Mean Corpuscular Hemoglobin 29.8 27.0 - 33.0 pg [facility] Mean Corpuscular HGB Conc 33.4 31.0 - 36.0 g/dl [facility] Red Cell Distribution Width 12.4 11.0 - 16.0 % [facility] Platelet Count 154(L) 160 - 400 X10*3/uL [facility] Mean Platelet Volume 10.6 9.4 - 12.4 fL [facility] NRBC Pct Auto 0.0 0.0 - 0.2 /100WBC [facility] NRBC Abs Auto 0.000 0.0 - 0.012 X10*3/uL [facility] 06/21/2025 11:2 2 AM EDT 06/21/2025 11:22 AM EDT us Generic External Data Provider LAB BLOOD ORDERAB LES Final Result [facility] [address] [place] [phone] [phone] * (ABNORMAL) Basic Metabolic Panel (06/21/2025 11:22 AM EDT) Sodium 141 135 - 145 mmol/L [facility] Potassium 4.3 3.3 - 5.1 mmol/L [facility] Chloride 108 96 - 108 mmol/L [facility] Carbon Dioxide 27 22 - 29 mmol/L [facility] Anion Gap 10(L) 12 - 20 [facility] Urea Nitrogen (BUN) 13 9 - 16 mg/dL [facility] Creatinine, Serum 1.02 0.5 - 1.4 mg/dL [facility] Estimated Glomerular Filt Rate >60 [facility] Comment:Chronic Kidney Disea se: Estimated GFR < 60 mL/min/[id number] Kidney Disease: Estimated GFR < 15 mL/min/1.73m2 Glucose 157(H) 60 - 115 mg/dL [facility] Calcium 9.2 8.4 - 10.2 mg/dL [facility] 06/21/2025 11:2 2 AM EDT 06/21/2025 11:22 AM EDT us Generic External Data Provider LAB BLOOD ORDERAB LES Final Result [facility] [address] [place] [phone] [phone] * Referral to Ophthalmology (12/15/2024) us Shanika Stanleyfo OD OUTPATIENT REFERRAL ORDERABLE S Final Result * (ABNORMAL) Lipid Panel, Standard (08/08/2024 2:44 PM EDT) Triglycerides 106 <150 mg/dL [facility] Comment:Desirable Triglyceri de: less than 150 mg/dLBorderline High Triglyceride 150-199 mg/dLHigh Triglyceride: 200-499 mg/dLVery High Triglyceride: greater than or equal to 5OO mg/dL Cholesterol 84 <200 mg/dL [facility] Comment:Desirable Cholestero l: less than 200 mg/dLBorderline High Cholesterol: 200-239 mg/dLHigh Cholesterol: greater than 239 mg/dL LDL Cholesterol Calculated 29 <100 mg/dL [facility] Comment:Desirable LDL: less than 100 mg/dLNear Optimal/Above Optimal LDL: 110- 129 mg/dLBorderline High LDL: 130-159 mg/dLHigh LDL: 160-189 mg/dLVery High LDL: greater than or equal to 190 mg/dL HDL Cholesterol 34(L) >40 mg/dL [facility] Comment:Desirable HDL: great er than 40 mg/dL Note: This HDL assay may give artificially low results in patients with liver disease. Blood Venous blood specimen / Unknown 08/08/2024 2:44 PM EDT 08/08/2024 2:44 PM EDT us Piedad Little MD LAB BLOOD ORDERABLES Final Result [facility] [address] [place] [phone] * Hepatitis C Ab (12/21/2023 4:14 PM EDT) [facility] Hepatitis C Antibody Nonreactive Nonreactive [facility] Comment:Antibodies to HCV no t detected; does not exclude early acuteHCV infection. 12/21/2023 4:14 PM EDT 12/21/2023 4:14 PM EDT us Generic External Data Provider LAB BLOOD ORDERAB LES Final Result Performing Organization Address [facility] de Phone Number [facility] [address] [place] [phone] * HIV-1/2 Antigen and Antibodies, Fourth Generation, with Reflexes (12/21/2023 4:14 PM EDT) [facility] HIV AB/AG Nonreactive Nonreactive [facility] Comment:HIV-1 p24 Ag and/or HIV-1/HIV-2 Ab not detected.A test result that is nonreactive does not exclude thepossibility of exposure to or infection with HIV-1 and/orHIV-2. Nonreactive results in this assay for individualswith prior exposure to HIV-1 and/or HIV-2 may be due toantigen and antibody levels that are below the limit ofdetection of this assay.The [employer] HIV Ag/Ab Combo assay result andsupplemental assay results should be interpreted inconjunction with the patient's clinical presentation,history and other laboratory results. If the results areinconsistent with clinical evidence, additional testing issuggested to confirm the result. 12/21/2023 4:14 PM EDT 12/21/2023 4:14 PM EDT us Generic External Data Provider LAB BLOOD ORDERAB LES Final Result Performing Organization Address [facility] de Phone Number [facility] [address] [place] [phone] * ALBUMIN, RANDOM URINE W/CREATININE (12/19/2020 [...] Little MD LAB URINE ORDERABLES Final Result [facility] Anywhere [address] from Last 3 Months or Most Recently Relevant to Health Maintenance Additional Health Concerns Active Problems Noted Date Diagnosed Date Help patients manage their type 2 diabetes 08/25 Patient has chronic kidney disease 08/25/2025 Patient has chronic kidney disease 08/25/2025 Patient has chronic kidney disease 08/25/2025 Insurance [facility] STANDARD [facility] < [address] [facility] Care Teams Childcare Teacher Relationship Specialty Start Date End Date Piedad Pacheco MD [address] [place] [phone] PCP - General Family Medicine 10/26/20
--- OUTSIDE RECORDS SUMMARY | 2025-09-05 09:06 | XMS_ITS | Encounter Summary ---
Author Organization [employer] Address [address] [facility] [address] [place] [address] Care Team Providers Care Production Officer Name Role Phone Piedad Pacheco MD Primary Care Provide r Reason for Visit * Reason Onset Date Comments Med Refill 12/09/2023 Encounter Details Date Type Department Care Team ([facility] Contact Info) Description 12/09/2023 Telephone [facility] [address] [place], [place] [phone] Piedad Pacheco MD [address] [place] [address] Med Refill Social History Tobacco Use Types [...] be sent to: [facility] [address] [place] [address] documented in this encounter Plan of Treatment Upcoming Encounters Date Type Department Care Team (Late st Contact Info) Description 10/24/2025 9:15 AM EST Office Visit [facility] [address] [place] [address] [phone] Piedad Pacheco MD [address] [place] [address] [phone] 12/08/2025 1:30 PM EST Telemedicine [facility] [address] [place] [address] [phone] Francy Melara RN documented as of this encounter Visit Diagnoses Not on filedocumented in this encounter Additional Health Concerns Assessment Noted Time PHQ-9 Depression Total Score: 0 07/14/20 23 11:16 AM EDT documented as of this encounter Care Teams Production Officer Relationship Specialty Start Date End Date Piedad Pacheco MD [address] [place] [address] PCP - General Family Medicine 10/26/20 documented as of this encounter
--- OUTSIDE RECORDS SUMMARY | 2025-09-05 09:06 | XMS_ITS | Encounter Summary ---
Author Organization [employer] Address [address] [facility] 7t [place] [address] Care Team Providers Care Engineering Officer Name Role Phone Piedad Pacheco MD Primary Care Provide r Encounter Details Date Type Department Care Team ([facility] st Contact Info) Description 09/15/2023 Telephone [facility] MEDICINE 230 [place], [place] [phone] Piedad Pacheco MD 230 [place], [place] [phone] Social History Tobacco Use Types Packs/Day Years [...] Description 10/24/2025 9:15 AM EST Office Visit [facility] MED[facility]INE [address] [place] [phone] Piedad Pacheco MD [address] [place] [address] 12/08/2025 1:30 PM EST Telemedicine [address] [address] Francy Melara RN documented as of this encounter Visit Diagnoses Not on filedocumented in this encounter Additional Health Concerns Assessment Noted Time PHQ-9 Depression Total Score: 0 07/14/20 23 11:16 AM EDT documented as of this encounter Care Teams Engineering Officer Relationship Specialty Start Date End Date Piedad Pacheco MD [address] [place] [address] PCP - General Family Medicine 10/26/20 documented as of this encounter
--- OUTSIDE RECORDS SUMMARY | 2025-09-05 09:06 | XMS_ITS | Encounter Summary ---
Author Organization [employer] Address 75 [facility] 7t [place] [address] Care Team Providers Care Physician Relations Representative Name Role Phone Piedad Pacheco MD Primary Care Provide r Reason for Visit * Reason Onset Date Comments PT-1 04/24/2025 Encounter Details Date Type Department Care Team ([facility] st Contact Info) Description 04/24/2025 Telephone [facility] MEDICINE 230 [place] [address] Piedad Pacheco MD 230 [place] [address] PT-1 Social History Tobacco Use Types Packs/Day [...] Y/N: Yes Provider name or facility name: [facility] Facility Address: [address] [place] [id number] Escort needed: Y/N: Yes Do you have a wheelchair: Y/N: Yes If yes- Manual or electric: Scooter Visits: 5 a month documented in this encounter Plan of Treatment Upcoming Encounters Date Type Department Care Team ([facility] st Contact Info) Description 10/24/2025 9:15 AM EST Office Visit [facility] MEDICINE [address] [place] [phone] Piedad Pacheco MD [address] [place] [address] 12/08/2025 1:30 PM EST Telemedicine [facility] MEDICINE [address] [place] [phone] Francy Melara, RN documented as of this encounter Visit Diagnoses Not on filedocumented in this encounter Additional Health Concerns Assessment Noted Time PHQ-9 Depression Total Score: 0 10/19/19 25 10:23 AM EST documented as of this encounter Care Teams Physician Relations Representative Relationship Specialty Start Date End Date Piedad Pacheco MD 230 [place] [address] PCP - General Family Medicine 10/26/20 documented as of this encounter
--- OUTSIDE RECORDS SUMMARY | 2025-09-05 09:06 | XMS_ITS | Encounter Summary ---
Author Organization [employer] Address 75 [facility] 7t [place] [address] Care Team Providers Care Post Acute Care Registered Nurse Name Role Phone Piedad Pacheco MD Primary Care Provide r Reason for Visit * Reason Onset Date Comments PT1 12/12/2024 Encounter Details Date Type Department Care Team ([facility] Contact Info) Description 12/12/2024 Telephone [facility] MEDICINE 230 [place] [address] Piedad Pacheco MD 230 [place] [address] PT1 Social History Tobacco Use Types Packs/Day [...] Description 10/24/2025 9:15 AM EST Office Visit [facility] MEDICINE [address] [place] [address] [phone] Piedad Pacheco MD 230 [place] [address] 12/08/2025 1:30 PM EST Telemedicine [facility] MED[facility]INE [address] [place] [address] [phone] Francy Melara, RN documented as of this encounter Visit Diagnoses Not on filedocumented in this encounter Additional Health Concerns Assessment Noted Time PHQ-9 Depression Total Score: 0 10/19/19 25 10:23 AM EST documented as of this encounter Care Teams Post Acute Care Registered Nurse Relationship Specialty Start Date End Date Piedad Pacheco MD [address] [place] [address] PCP - General Family Medicine 10/26/20 documented as of this encounter
--- OUTSIDE RECORDS SUMMARY | 2025-09-05 09:06 | XMS_ITS | Encounter Summary ---
Author Organization [employer] Address 75 [facility] 7t [place] [address] Care Team Providers Care Mill Laborer Name Role Phone Piedad Pacheco MD Primary Care Provide r Reason for Visit * Reason Comments Med Refill Encounter Details Date Type Department Care Team ([facility] st Contact Info) Description 02/12/2024 Refill [facility] MEDICINE 230 [place], [place] [phone] Piedad Pacheco MD 230 [place] [address] Insomnia, unspecified type Social History Tobacco Use [...] Description 10/24/2025 9:15 AM EST Office Visit [address] [address] Piedad Pacheco MD [address] [place] [address] 12/08/2025 1:30 PM EST Telemedicine [address] [address] Francy Melara RN documented as of this encounter Visit Diagnoses Diagnosis Insomnia, unspecified type documented in this encounter Additional Health Concerns Assessment Noted Time PHQ-9 Depression Total Score: 0 07/14/20 23 11:16 AM EDT documented as of this encounter Care Teams Mill Laborer Relationship Specialty Start Date End Date Piedad Pacheco MD [address] [place] [phone] PCP - General Family Medicine 10/26/20 documented as of this encounter
--- OUTSIDE RECORDS SUMMARY | 2025-09-05 09:06 | XMS_ITS | Encounter Summary ---
Author Organization [employer] Address [address] [facility] 7t [place] [address] Care Team Providers Care Boring Mill Set Up Operator Vertical Name Role Phone Piedad Pacheco MD Primary Care Provide r Reason for Visit * Reason Comments Med Refill Encounter Details Date Type Department Care Team ([facility] st Contact Info) Description 09/11/2023 Refill [facility] MEDICINE 230 [place], [place] [phone] Piedad Pacheco MD 230 [place] [address] Restless leg syndrome Social History Tobacco Use [...] status on message below. Contact pt at [phone] documented in this encounter Plan of Treatment Upcoming Encounters Date Type Department Care Team (Late st Contact Info) Description 10/24/2025 9:15 AM EST Office Visit [facility] MEDICINE [address] [place] [address] Piedad Pacheco MD [address] [place] [address] 12/08/2025 1:30 PM EST Telemedicine [facility] MEDICINE [address] [place] [address] Francy Melara RN documented as of this encounter Visit Diagnoses Diagnosis Restless leg syndrome Restless legs syndrome (RLS) documented in this encounter Additional Health Concerns Assessment Noted Time PHQ-9 Depression Total Score: 0 07/14/20 23 11:16 AM EDT documented as of this encounter Care Teams Boring Mill Set Up Operator Vertical Relationship Specialty Start Date End Date Piedad Pacheco MD [address] [place] [address] PCP - General Family Medicine 10/26/20 documented as of this encounter
--- OUTSIDE RECORDS SUMMARY | 2025-09-05 09:06 | XMS_ITS | Encounter Summary ---
Author Organization [employer] Address 75 [facility] 7t [place] [address] Care Team Providers Care Fibrous Plasterer Name Role Phone Piedad Pacheco MD Primary Care Provide r Reason for Visit * Reason Onset Date Comments Med Refill 01/29/2024 Encounter Details Date Type Department Care Team ([facility] Contact Info) Description 01/29/2024 Telephone [facility] MEDICINE 230 [place], [place] [phone] Piedad Pacheco MD 230 [place] [address] Med Refill Social History Tobacco Use Types [...] 10 MG tablet To be sent to: [facility] [address] [place] [address] documented in this encounter Plan of Treatment Upcoming Encounters Date Type Department Care Team (Late st Contact Info) Description 10/24/2025 9:15 AM EST Office Visit [facility] MEDICINE [address] [place] [phone] Piedad Pacheco MD [address] [place] [address] 12/08/2025 1:30 PM EST Telemedicine [facility] MEDICINE [address] [place] [address] Francy Melara RN documented as of this encounter Visit Diagnoses Not on filedocumented in this encounter Additional Health Concerns Assessment Noted Time PHQ-9 Depression Total Score: 0 07/14/20 23 11:16 AM EDT documented as of this encounter Care Teams Fibrous Plasterer Relationship Specialty Start Date End Date Piedad Pacheco MD [address] [place] [address] PCP - General Family Medicine 10/26/20 documented as of this encounter
--- OUTSIDE RECORDS SUMMARY | 2025-09-05 09:06 | XMS_ITS | Encounter Summary ---
Author Organization [employer] Address [address] [facility] [address] 7t [place] [address] Care Team Providers Care History Teacher Name Role Phone Piedad Pacheco MD Primary Care Provide r Encounter Details Date Type Department Care Team ([facility] st Contact Info) Description 12/13/2024 Orders Only [facility] 230 [place], [place] [phone] Ronald Zimmerman MD 230 [place] [address] Social History Tobacco Use Types Packs/Day Years [...] Description 10/24/2025 9:15 AM EST Office Visit [facility] MEDICINE [address] [place] [address] Piedad Pacheco MD [address] [place] [address] 12/08/2025 1:30 PM EST Telemedicine [address] [address] Francy Melara RN documented as of this encounter Visit Diagnoses Not on filedocumented in this encounter Additional Health Concerns Assessment Noted Time PHQ-9 Depression Total Score: 0 10/19/19 25 10:23 AM EST documented as of this encounter Care Teams History Teacher Relationship Specialty Start Date End Date Piedad Pacheco MD [address] [place] [phone] PCP - General Family Medicine 10/26/20 documented as of this encounter
--- OUTSIDE RECORDS SUMMARY | 2025-09-05 09:06 | XMS_ITS | Encounter Summary ---
Author Organization [employer] Address 75 [facility] 7t [place] [address] Care Team Providers Care Senior Operator Name Role Phone Piedad Pacheco MD Primary Care Provide r Reason for Visit * Reason Comments Med Refill Encounter Details Date Type Department Care Team ([facility] st Contact Info) Description 09/01/2023 Refill [facility] MEDICINE 230 [place], [place] [phone] Piedad Pacheco MD 230 [place] [address] Restless leg syndrome Social History Tobacco Use [...] Description 10/24/2025 9:15 AM EST Office Visit [address] [address] Piedad Pacheco MD [address] [place] [address] 12/08/2025 1:30 PM EST Telemedicine [address] [address] Francy Melara RN documented as of this encounter Visit Diagnoses Diagnosis Restless leg syndrome Restless legs syndrome (RLS) documented in this encounter Additional Health Concerns Assessment Noted Time PHQ-9 Depression Total Score: 0 07/14/20 23 11:16 AM EDT documented as of this encounter Care Teams Senior Operator Relationship Specialty Start Date End Date Piedad Pacheco MD [address] [place] [address] PCP - General Family Medicine 10/26/20 documented as of this encounter
--- OUTSIDE RECORDS SUMMARY | 2025-09-05 09:06 | XMS_ITS | Encounter Summary ---
Author Organization [employer] Address 75 [facility] 7t [place] [address] Care Team Providers Care Electrical Electronics Engineer Name Role Phone Piedad Pacheco MD Primary Care Provide r Encounter Details Date Type Department Care Team (Late st Contact Info) Description 05/22/2025 Orders Only [facility] MEDICINE 230 [place], [place] [phone] Piedad Pacheco MD 230 [place] [address] Hemiparesis affecting right side as late effect [...] 10/24/2025 9:15 AM EST Office Visit [facility] MEDICINE [address] [place] [address] Piedad Pacheco MD [address] [place] [address] 12/08/2025 1:30 PM EST Telemedicine [facility] MEDICINE [address] [place] [address] Francy Melara, SLADE documented as of this encounter Visit Diagnoses Diagnosis Hemiparesis affecting right side as late effect of cerebrovascular accident (CMS/HCC) (HCC)- Primary documented in this encounter Additional Health Concerns Assessment Noted Time PHQ-9 Depression Total Score: 0 10/19/19 25 10:23 AM EST documented as of this encounter Care Teams Electrical Electronics Engineer Relationship Specialty Start Date End Date Piedad Pacheco MD [address] [place] [address] PCP - General Family Medicine 10/26/20 documented as of this encounter
--- OUTSIDE RECORDS SUMMARY | 2025-09-05 09:06 | XMS_ITS | Encounter Summary ---
Author Organization [employer] Address 75 [facility] 7t [place] [address] Care Team Providers Care Oil Furnace Installer Name Role Phone Piedad Pacheco MD Primary Care Provide r Reason for Visit * Reason Comments Med Refill Encounter Details Date Type Department Care Team ([facility] st Contact Info) Description 02/10/2024 Refill [facility] MEDICINE 230 [place], [place] [phone] Doris Dunne MD 230 [place], [place] [phone] Restless leg syndrome Social History Tobacco Use [...] Description 10/24/2025 9:15 AM EST Office Visit [address] [address] Piedad Pacheco MD [address] [place] [address] 12/08/2025 1:30 PM EST Telemedicine [address] [address] Francy Melara RN documented as of this encounter Visit Diagnoses Diagnosis Restless leg syndrome Restless legs syndrome (RLS) documented in this encounter Additional Health Concerns Assessment Noted Time PHQ-9 Depression Total Score: 0 07/14/20 23 11:16 AM EDT documented as of this encounter Care Teams Oil Furnace Installer Relationship Specialty Start Date End Date Piedad Pacheco MD [address] [place] [address] PCP - General Family Medicine 10/26/20 documented as of this encounter
--- OUTSIDE RECORDS SUMMARY | 2025-09-05 09:06 | XMS_ITS | Encounter Summary ---
Author Organization [employer] Address [address] [facility] 7t [place] [address] Care Team Providers Care Bowling Floor Manager Name Role Phone Piedad Pacheco MD Primary Care Provide r Encounter Details Date Type Department Care Team ([facility] st Contact Info) Description 02/12/2024 Telephone [facility] MEDICINE 230 [place], [place] [phone] Piedad Pacheco MD 230 [place], [place] [phone] Social History Tobacco Use Types Packs/Day Years [...] Office Visit [facility] MEDICINE [address] [place] [address] Piedad Pacheco MD [address] [place] [address] 12/08/2025 1:30 PM EST Telemedicine [address] [address] Francy Melara RN documented as of this encounter Visit Diagnoses Not on filedocumented in this encounter Additional Health Concerns Assessment Noted Time PHQ-9 Depression Total Score: 0 07/14/20 23 11:16 AM EDT documented as of this encounter Care Teams Bowling Floor Manager Relationship Specialty Start Date End Date Piedad Pacheco MD [address] [place] [address] PCP - General Family Medicine 10/26/20 documented as of this encounter
== END 2025-09-05 09:33 | disposition home or self-care (01) ==
LOC: HO.HCS 08:43
PROVIDERS: PCP Internal Medicine; Visit Provider Nurse Practitioner Family
DX: I25.10 Atherosclerotic heart disease of native coronary artery without angina pectoris (principal); Z98.890 Other specified postprocedural states; I42.9 Cardiomyopathy, unspecified
CPT/HCPCS: 99214; G2211

== ENCOUNTER → 2025-09-05 08:43 | Outpatient (BNVA) | payer OTHER, SELFPAY | PROVIDERS: PCP Internal Medicine; Visit Provider Nurse Practitioner Family | DX: I25.10 Atherosclerotic heart disease of native coronary artery without angina pectoris (principal); I42.9 Cardiomyopathy, unspecified; Z98.890 Other specified postprocedural states | CPT/HCPCS: 99212 ==

== ENCOUNTER 2025-10-02 09:41 | Outpatient (REF) | payer OTHER, SELFPAY ==
--- OUTSIDE RECORDS SUMMARY | 2025-09-28 23:59 | XMS_ITS | Continuity of Care Document ---
Author Organization [facility] ter Address [address] [place] [id number]- Care Team Providers Care Service Car Operator Name Role Phone Gina Pacheco MD Primary Care Physici an [id number] Date(s): 05/30/25 - 09/28/[address] [address]- Attending Physician: Juan Davidson MD Admitting Physician: Juan Davidson MD Encounter Type: Preadmit Daystay Allergies, Adverse Reactions, Alerts No Known Allergies Immunizations Given and Recorded Vaccine Date Status Refusal Reason tetanus/diphtheria/pertussis, acel(Tdap) 03/11/16 Given Medications amLODIPine 5 mg oral tablet 5 mg, By Mouth, Daily, Refills 0, Maintenance, 05/03/23 3:11:00 PM EDT, Partial fill upon patient request if the prescription is for a schedule II opioid drug. Start Date: 05/03/23 Status: Ordered Medication Dispense Status: Completed Total Allowed Fills: 1 Fills Dispensed: 0 aspirin 81 mg oral tablet 1 tablet = 81 mg, By Mouth, Daily, # 30 tablet, 0 Refills, Maintenance, 09/28/18 3:28:43 AM EST, Tablet Start Date: 09/28/18 Status: Ordered Medication Dispense Status: Completed Quantity: 30.0 Unit: tablet Total Allowed Fills: 1 Fills Dispensed: 0 Aspirin Low Dose 81 mg oral delayed release tablet 1 tablet = 81 mg, By Mouth, Daily, # 30 tablet, 0 Refills, Maintenance, 07/13/25 7:54:00 AM EDT, EC Tablet, Partial fill upon patient request if the prescription is for a schedule II opioid drug. Start Date: 07/13/25 Status: Ordered Medication Dispense Status: Completed Quantity: 30.0 Unit: tablet Total Allowed Fills: 1 Fills Dispensed: 0 atorvastatin 80 mg oral tablet 1 tablet = 80 mg, By Mouth, Daily, # 90 tablet, 0 Refills, Maintenance, 07/13/25 7:54:00 AM EDT, Tablet, Partial fill upon patient request if the prescription is for a schedule II opioid drug. Start Date: 07/13/25 Status: Ordered Medication Dispense Status: Completed Quantity: 90.0 Unit: tablet Total Allowed Fills: 1 Fills Dispensed: 0 Brilinta (ticagrelor) 90 mg oral tablet 1 tablet = 90 mg, By Mouth, 2 times a day, # 180 tablet, 0 Refills, Maintenance, 07/13/25 9:00:00 PMEDT, [facility] 3, Partial fill upon patient request if the prescription is for a schedule II opioid drug., 167, cm, 07/13/25 10:19:00 EDT, Height, 97.6, kg, 07/13/25 10:19:00 EDT, Dry Weight Start Date: 07/13/25 Status: Ordered Medication Dispense Status: Completed Quantity: 180.0 Unit: tablet Total Allowed Fills: 1 Fills Dispensed: 0 Cialis 20 mg oral tablet 0 Refills, Maintenance, 07/13/25 7:53:00 AM EDT, Partial fill upon patient request if the prescription is for a schedule II opioid drug. Start Date: 07/13/25 Status: Ordered Medication Dispense Status: Completed Total Allowed Fills: 1 Fills Dispensed: 0 famotidine 20 mg oral tablet 20 mg, 1, tablet, By Mouth, 2 times a day, # 180 tablet, Refills 0, Maintenance, 04/26/23 7:21:00 PMEDT, Partial fill upon patient request if the prescription is for a schedule II opioid drug. Start Date: 04/26/23 Status: Ordered Medication Dispense Status: Completed Quantity: 180.0 Unit: tablet Total Allowed Fills: 1 Fills Dispensed: 0 Farxiga 10 mg oral tablet 1 tablet = 10 mg, By Mouth, Daily, # 30 tablet, 0 Refills, Maintenance, 07/13/25 7:53:00 AM EDT, Tablet, Partial fill upon patient request if the prescription is for a schedule II opioid drug. Start Date: 07/13/25 Status: Ordered Medication Dispense Status: Completed Quantity: 30.0 Unit: tablet Total Allowed Fills: 1 Fills Dispensed: 0 Incruse Ellipta 62.5 mcg/inh inhalation powder 1 each, Inhalation, Every 24 hours, doses should be taken at least 24 hours apart, # 30 each, 0 Refills, Maintenance, 04/26/23 7:21:00 PM EDT, Powder, Partial fill upon patient request if the prescription is for a schedule II opioid drug. Start Date: 04/26/23 Status: Ordered Medication Dispense Status: Completed Quantity: 30.0 Unit: each Total Allowed Fills: 1 Fills Dispensed: 0 metFORMIN 500 mg oral tablet TAKE 2 TABLETS BY MOUTH TWICE DAILY WITH MORNING MEAL AND WITH EVENING MEAL Start Date: 04/26/23 Status: Ordered Medication Dispense Status: Completed Total Allowed Fills: 1 Fills Dispensed: 0 metFORMIN 500 mg oral tablet 1 tablet = 500 mg, By Mouth, 2 times a day, # 180 tablet, 0 Refills, Maintenance, 07/13/25 7:54:00 AM EDT, Tablet, Partial fill upon patient request if the prescription is for a schedule II opioid drug. Start Date: 07/13/25 Status: Ordered Medication Dispense Status: Completed Quantity: 180.0 Unit: tablet Total Allowed Fills: 1 Fills Dispensed: 0 oxyCODONE 5 mg oral tablet 2.5 mg, 0.5, tablet, By Mouth, Every 6 hours, PRN, Refills 0, Tot. Refills 0, Maintenance, as needed for pain, 07/13/25 7:53:00 AM EDT, Partial fill upon patient request if the prescription is for a schedule II opioid drug. Start Date: 07/13/25 Status: Ordered Medication Dispense Status: Completed Total Allowed Fills: 1 Fills Dispensed: 0 rOPINIRole 2 mg oral tablet 1 tablet = 2 mg, By Mouth, 3 times a day, # 270 tablet, 0 Refills, Maintenance, 07/13/25 7:54:00 AM EDT, Tablet, Partial fill upon patient request if the prescription is for a schedule II opioid drug. Start Date: 07/13/25 Status: Ordered Medication Dispense Status: Completed Quantity: 270.0 Unit: tablet Total Allowed Fills: 1 Fills Dispensed: 0 Tadalafil (Eqv-Cialis) 20 mg oral tablet TAKE 1 TABLET BY MOUTH 45 MINUTES BEFORE SEXUAL ACTIVITY DIRECTED Start Date: 04/26/23 Status: Ordered Medication Dispense Status: Completed Total Allowed Fills: 1 Fills Dispensed: 0 tamsulosin 0.4 mg oral capsule 0.4 mg, 1, capsule, By Mouth, Daily, Refills 0, Maintenance, 03/26/23 8:24:00 AM EDT, Partial fill upon patient request if the prescription is for a schedule II opioid drug. Start Date: 03/26/23 Status: Ordered Medication Dispense Status: Completed Total Allowed Fills: 1 Fills Dispensed: 0 Xiidra 5% ophthalmic solution 1 drops, Eyes, Both, 2 times a day, # 60 each, 0 Refills, Maintenance, 07/13/25 7:54:00 AM EDT, Solution, Partial fill upon patient request if the prescription is for a schedule II opioid drug. Start Date: 07/13/25 Status: Ordered Medication Dispense Status: Completed Quantity: 60.0 Unit: each Total Allowed Fills: 1 Fills Dispensed: 0 zolpidem 10 mg oral tablet 1 tablet = 10 mg, By Mouth, Daily at bedtime, PRN as needed for insomnia, 0 Refills, Maintenance, 04/26/23 7:21:00 PM EDT, Tablet, Partial fill upon patient request if the prescription is for a schedule II opioid drug. Start Date: 04/26/23 Status: Ordered Medication Dispense Status: Completed Total Allowed Fills: 1 Fills Dispensed: 0 zolpidem 10 mg oral tablet 1 tablet = 10 mg, By Mouth, Daily at bedtime, PRN as needed for insomnia, 0 Refills, Maintenance, 07/13/25 7:53:00 AM EDT, Tablet, Partial fill upon patient request if the prescription is for a schedule II opioid drug. Start Date: 07/13/25 Status: Ordered Medication Dispense Status: Completed Total Allowed Fills: 1 Fills Dispensed: 0 Problem List Condition Confirmation Course Effective Dates Status H ealth Status Informant Chronic back pain Confirmed Active Diabetes mellitus type 2 Confirmed Active Erectile dysfunction Confirmed Active GERD - Gastro-esophageal reflux disease Confirmed Active Hyperlipidemia Confirmed Active Hypertension Confirmed Active Severe obesity (BMI 35.0-39.9) with comorbidity Confirmed Active Social History Social History Type Response Tobacco Use: 4 or less cigar ettes(less than 1/4 pack)/day in last 30 days. Other: 1-2 cigarettes/day. Sex Sex Representation Male (finding) Patient Care team information Care Team Personnel Name: Gina Pacheco MD Position: [facility] Outreach Member Role: PCP Address: [address] [place] [id number] Telecom: Name: Neil Cain RN Position: S RN Member Role: Primary Care Nurse Name: Rachel Santos RN Position: S RN Member Role: Primary Care Nurse Name: Francy Lieberman RN Position: S RN Member Role: Primary Care Nurse Name: Anna Christopher RN Position: S RN Member Role: Primary Care Nurse Name: Jude Briggs RN Position: S RN Member Role: Primary Care Nurse Name: Davina Alvarez RN Position: S RN Member Role: Primary Care Nurse Name: Stefania Solomon RN Position: S RN Member Role: Primary Care Nurse Care Team Related Persons Name: GINA HUSSEIN Name: LIO GUZMÁN Name: PRESLEY GATES Insurance Providers Guarantor name: MICA BAÑUELOS Health Plan Information #: 1 Payer: [facility] Payer Identifier: NA Member Number: [id number] Group Number: [id number] Subscriber Identifier: [id number] Relationship to Subscriber: self Coverage Type: Medicare Managed Care (Includes Medicare Advantage Plans) Coverage Verification Date: NA Telecom: NA Address:
[2025-10-02 10:03] LABS: MANUAL DIFF FLAG NO
[2025-10-02 10:48] LABS: Hematocrit 49.4 % (42.0-52.0); Hemoglobin 16.4 g/dl (14.0-18.0); INTERNATIONAL NORM RATIO 0.9 (0.9-1.1); Imm Gran Abs Auto 0.03 X10*3/uL (0.00-0.03); Imm Gran Pct Auto 0.4 % (0.0-0.4); Lymphocytes Absolute Auto 1.8 X10*3/uL (1.2-4.9); Mean Corpuscular HGB Conc 33.2 g/dl (31.0-36.0); Mean Corpuscular Hemoglobin 30.8 pg (27.0-33.0); Mean Corpuscular Volume 92.7 fL (80.0-98.0); NRBC Abs Auto 0.000 X10*3/uL (0.0-0.012); NRBC Pct Auto 0.0 /100WBC (0.0-0.2); Platelet Count 174 X10*3/uL (160-400); Prothrombin Time 10.7 SEC (11.2-13.5); Red Blood Count 5.33 X10*6/uL (4.60-5.80); White Blood Count 6.8 X10*3/uL (4.8-10.8)
--- OUTSIDE RECORDS SUMMARY | 2025-10-02 11:10 | XMS_ITS | Encounter Summary ---
Author Organization [employer] Address [address] [facility] 7t [place] [address] Care Team Providers Care Market Sales Manager Name Role Phone Piedad Pacheco MD Primary Care Provide r Reason for Visit * Reason Onset Date Comments Med Refill 10/28/2024 Encounter Details Date Type Department Care Team ([facility] Contact Info) Description 10/28/2024 Telephone [facility] [address] [place] [address] Piedad Pacheco MD [address] [place] [address] Med Refill Social History Tobacco Use Types [...] 3:19 PM EST Medication was sent to [place] [phone] on 10/20/24. * Telephone Encounter - Marguerite Irvin - 10/28/2024 3:17 PM EST TC from pt requesting medication refill. Medications needing refill : loratadine (Claritin) 10 MG tablet To be sent to: [facility] [address] [place] [address] documented in this encounter Plan of Treatment Upcoming Encounters Date Type Department Care Team (Late st Contact Info) Description 10/24/2025 9:15 AM EST Office Visit [facility] [address] [place] [phone] Piedad Pacheco MD [address] [place] [address] 12/08/2025 1:30 PM EST Telemedicine [facility] [address] [place], [place] [phone] Francy Melara, RN documented as of this encounter Visit Diagnoses Not on filedocumented in this encounter Additional Health Concerns Assessment Noted Time PHQ-9 Depression Total Score: 0 10/19/19 25 10:23 AM EST documented as of this encounter Care Teams Market Sales Manager Relationship Specialty Start Date End Date Piedad Pacheco MD [address] [place] [address] [phone] PCP - General Family Medicine 10/26/20 documented as of this encounter
--- OUTSIDE RECORDS SUMMARY | 2025-10-02 11:10 | XMS_ITS | Encounter Summary ---
Author Organization [employer] Address [address] [facility] 7t [place] [address] Care Team Providers Care Cigarette Package Examiner Name Role Phone Piedad Pacheco MD Primary Care Provide r Encounter Details Date Type Department Care Team ([facility] st Contact Info) Description 11/22/2024 Telephone [facility] [address] [place], [place] [phone] Piedad Pacheco MD [address] [place], [place] [phone] Social History Tobacco Use Types Packs/Day Years [...] Office Visit [facility] [address] [place] [phone] Piedad Pacheco MD [address] [place] [phone] 12/08/2025 1:30 PM EST Telemedicine [address] [address] Francy Melara RN documented as of this encounter Visit Diagnoses Not on filedocumented in this encounter Additional Health Concerns Assessment Noted Time PHQ-9 Depression Total Score: 0 10/19/19 25 10:23 AM EST documented as of this encounter Care Teams Cigarette Package Examiner Relationship Specialty Start Date End Date Piedad Pacheco MD [address] [place] [phone] PCP - General Family Medicine 10/26/20 documented as of this encounter
--- OUTSIDE RECORDS SUMMARY | 2025-10-02 11:11 | XMS_ITS | Encounter Summary ---
Author Organization [email or web address] Address [address] [facility] 7t [place] [address] Care Team Providers Care Operative Supervisor Name Role Phone Piedad Pacheco MD Primary Care Provide r Reason for Visit * Reason Onset Date Comments Med Refill 05/25/2024 Encounter Details Date Type Department Care Team ([facility] st Contact Info) Description 05/25/2024 Telephone [facility] [address] [place], [place] [phone] Piedad Pacheco MD [address] [place] [address] Med Refill Social History Tobacco Use Types [...] MG tablet To be sent to: [facility] [address] [place] [address] documented in this encounter Plan of Treatment Upcoming Encounters Date Type Department Care Team (Late st Contact Info) Description 10/24/2025 9:15 AM EST Office Visit [facility] [address] [place] [phone] Piedad Pacheco MD [address] [place] [phone] 12/08/2025 1:30 PM EST Telemedicine [facility] [address] [place] [phone] Francy Melara RN documented as of this encounter Visit Diagnoses Not on filedocumented in this encounter Additional Health Concerns Assessment Noted Time PHQ-9 Depression Total Score: 0 07/14/20 23 11:16 AM EDT documented as of this encounter Care Teams Operative Supervisor Relationship Specialty Start Date End Date Piedad Pacheco MD [address] [place] [phone] PCP - General Family Medicine 10/26/20 documented as of this encounter
--- OUTSIDE RECORDS SUMMARY | 2025-10-02 11:11 | XMS_ITS | Encounter Summary ---
Author Organization [employer] Address 75 [facility] 7t [place] [address] Care Team Providers Care Neuro Urologist Name Role Phone Piedad Pacheco MD Primary Care Provide r Reason for Visit * Reason Onset Date Comments Medication Question 06/26/2023 Encounter Details Date Type Department Care Team ([facility] Contact Info) Description 06/26/2023 Telephone [facility] MEDICINE [address] [place], [place] [phone] Piedad Pacheco MD 230 [place] [address] Medication Question Social History Tobacco Use Types [...] - 06/26/2023 10:13 AM EDT Tc from [facility] requesting a call from a nurse to speak about medication oxyCODONE (Roxicodone) 10 MG immediate release tablet. Pharmacy would like to know the chronic pain pt is having and why script is being receive with 7 days. Please contact Pharmacy at [phone] documented in this encounter Plan of Treatment Upcoming Encounters Date Type Department Care Team (Late st Contact Info) Description 10/24/2025 9:15 AM EST Office Visit [address] [address] Piedad Pacheco MD [address] [place] [address] 12/08/2025 1:30 PM EST Telemedicine [address] [address] Francy Melara, SLADE documented as of this encounter Visit Diagnoses Not on filedocumented in this encounter Additional Health Concerns Assessment Noted Time PHQ-9 Depression Total Score: 0 06/19/20 23 1:27 PM EDT documented as of this encounter Care Teams Neuro Urologist Relationship Specialty Start Date End Date Piedad Pacheco MD [address] [place] [address] PCP - General Family Medicine 10/26/20 documented as of this encounter
--- OUTSIDE RECORDS SUMMARY | 2025-10-02 11:11 | XMS_ITS | Encounter Summary ---
Author Organization [employer] Address 75 [facility] 7t [place] [address] Care Team Providers Care Veterinary Virus Serum Inspector Name Role Phone Piedad Pacheco MD Primary Care Provide r Reason for Visit * Reason Onset Date Comments Med Refill 08/31/2024 Encounter Details Date Type Department Care Team ([facility] Contact Info) Description 08/31/2024 Telephone [facility] MEDICINE 230 [place], [place] [phone] Piedad Pacheco MD [address] [place] [address] Med Refill Social History Tobacco Use Types [...] immediate release tablet To be sent to: [facility] [address] [place] [address] documented in this encounter Plan of Treatment Upcoming Encounters Date Type Department Care Team (Late st Contact Info) Description 10/24/2025 9:15 AM EST Office Visit [facility] MEDICINE [address] [place] [address] Piedad Pacheco MD [address] [place] [address] 12/08/2025 1:30 PM EST Telemedicine [facility] [address] [place] [phone] Francy Melara RN documented as of this encounter Visit Diagnoses Not on filedocumented in this encounter Additional Health Concerns Assessment Noted Time PHQ-9 Depression Total Score: 0 07/14/20 23 11:16 AM EDT documented as of this encounter Care Teams Veterinary Virus Serum Inspector Relationship Specialty Start Date End Date Piedad Pacheco MD [address] [place] [address] PCP - General Family Medicine 10/26/20 documented as of this encounter
--- OUTSIDE RECORDS SUMMARY | 2025-10-02 11:11 | XMS_ITS | Encounter Summary ---
Author Organization [employer] Address 75 [facility] 7t [place] [address] Care Team Providers Care Ethics Instructor Name Role Phone Piedad Pacheco MD Primary Care Provide r Reason for Visit * Reason Onset Date Comments Referral 07/21/2025 Encounter Details Date Type Department Care Team ([facility] Contact Info) Description 07/21/2025 Telephone [facility] MEDICINE 230 [place], [place] [phone] Piedad Pacheco MD [address] [place] [address] Referral Social History Tobacco Use Types Packs/Day [...] referral for orthopedics to be sent to [facility]. Any questions contact pt at [phone] documented in this encounter Plan of Treatment Upcoming Encounters Date Type Department Care Team (Late st Contact Info) Description 10/24/2025 9:15 AM EST Office Visit [facility] MEDICINE [address] [place] [address] Piedad Pacheco MD [address] [place] [address] 12/08/2025 1:30 PM EST Telemedicine [facility] MEDICINE [address] [place] [address] Francy Melara RN documented as of this encounter Visit Diagnoses Not on filedocumented in this encounter Additional Health Concerns Assessment Noted Time PHQ-9 Depression Total Score: 0 10/19/19 25 10:23 AM EST documented as of this encounter Care Teams Ethics Instructor Relationship Specialty Start Date End Date Piedad Pacheco MD [address] [place] [address] PCP - General Family Medicine 10/26/20 documented as of this encounter
--- OUTSIDE RECORDS SUMMARY | 2025-10-02 11:11 | XMS_ITS | Encounter Summary ---
Author Organization [employer] Address 75 [facility] 7t [place] [address] Care Team Providers Care Fulfillment Coordinator Name Role Phone Piedad Pacheco MD Primary Care Provide r Reason for Visit * Reason Onset Date Comments callback requested 09/12/2024 Encounter Details Date Type Department Care Team ([facility] Contact Info) Description 09/12/2024 Telephone [facility] MEDICINE 230 [place] [address] Piedad Pacheco MD 230 [place] [address] callback requested Social History Tobacco Use Types [...] 09/12/2024 2:06 PM EST Tc from [place] ([facility]) requesting a callback from PCP or [place] in regards pt (no further info discussed) Callback number [phone] documented in this encounter Plan of Treatment Upcoming Encounters Date Type Department Care Team (Late st Contact Info) Description 10/24/2025 9:15 AM EST Office Visit [facility] MEDICINE [address] [place] [address] Piedad Pacheco MD [address] [place] [address] 12/08/2025 1:30 PM EST Telemedicine [facility] MEDICINE [address] [place] [address] Francy Melara, SLADE documented as of this encounter Visit Diagnoses Not on filedocumented in this encounter Additional Health Concerns Assessment Noted Time PHQ-9 Depression Total Score: 0 07/14/20 23 11:16 AM EDT documented as of this encounter Care Teams Fulfillment Coordinator Relationship Specialty Start Date End Date Piedad Pacheco MD [address] [place] [address] PCP - General Family Medicine 10/26/20 documented as of this encounter
--- OUTSIDE RECORDS SUMMARY | 2025-10-02 11:11 | XMS_ITS | Encounter Summary ---
Author Organization [employer] Address 75 [facility] 7t [place] [address] Care Team Providers Care Director Community Center Name Role Phone Piedad Pacheco MD Primary Care Provide r Encounter Details Date Type Department Care Team ([facility] st Contact Info) Description 09/23/2024 Telephone [facility] MEDICINE 230 [place], [place] [phone] Piedad Pacheco MD [address] [place], [place] [phone] Social History Tobacco Use Types Packs/Day Years [...] Description 10/24/2025 9:15 AM EST Office Visit [facility] MEDICINE [address] [place] [address] Piedad Pacheco MD [address] [place] [address] 12/08/2025 1:30 PM EST Telemedicine [address] [address] Francy Melara RN documented as of this encounter Visit Diagnoses Not on filedocumented in this encounter Additional Health Concerns Assessment Noted Time PHQ-9 Depression Total Score: 0 07/14/20 23 11:16 AM EDT documented as of this encounter Care Teams Director Community Center Relationship Specialty Start Date End Date Piedad Pacheco MD [address] [place] [address] PCP - General Family Medicine 10/26/20 documented as of this encounter
--- OUTSIDE RECORDS SUMMARY | 2025-10-02 11:11 | XMS_ITS | Encounter Summary ---
Author Organization [employer] Address 75 [facility] 7t [place] [address] Care Team Providers Care Upholsterer Helper Name Role Phone Piedad Pacheco MD Primary Care Provide r Encounter Details Date Type Department Care Team (Late st Contact Info) Description 03/03/2023 Orders Only [facility]EDS [address] [place], [place] [phone] Jen Cortez LPN Social History Tobacco Use [...] Description 10/24/2025 9:15 AM EST Office Visit [facility] MEDICINE [address] [place] [address] [phone] Piedad Pacheco MD [address] [place] [address] 12/08/2025 1:30 PM EST Telemedicine [address] [phone] Francy Melara RN documented as of this encounter Visit Diagnoses Not on filedocumented in this encounter Care Teams Upholsterer Helper Relationship Specialty Start Date End Date Piedad Pacheco MD [address] [place] [phone] PCP - General Family Medicine 10/26/20 documented as of this encounter
--- OUTSIDE RECORDS SUMMARY | 2025-10-02 11:11 | XMS_ITS | Encounter Summary ---
Author Organization [employer] Address 75 [facility] 7t [place] [address] Care Team Providers Care Tenterer Name Role Phone Piedad Pacheco MD Primary Care Provide r Reason for Visit * Reason Onset Date Comments PT-1 10/28/2024 Encounter Details Date Type Department Care Team ([facility] st Contact Info) Description 10/28/2024 Telephone [facility] MEDICINE 230 [place], [place] [phone] Piedad Pacheco MD 230 [place] [address] PT-1 Social History Tobacco Use Types Packs/Day [...] requesting status of PT-1 UPDATED PT-1 INFO [facility] Radiology APPROVED [address] 2x visits a month expires 11/07/25 * Telephone Encounter - Jessi Robison - 11/01/2024 2:47 PM EST Tc from pt requesting status of PT-1 as requesting a callback [phone] * Telephone Encounter - Fox Gaona - [...] 9:15 AM EST Office Visit [facility] MEDICINE [address] [place] [address] Piedad Pacheco MD [address] [place] [address] 12/08/2025 1:30 PM EST Telemedicine [address] [phone] Francy Melara RN documented as of this encounter Visit Diagnoses Not on filedocumented in this encounter Additional Health Concerns Assessment Noted Time PHQ-9 Depression Total Score: 0 10/19/19 25 10:23 AM EST documented as of this encounter Care Teams Tenterer Relationship Specialty Start Date End Date Piedad Pacheco MD [address] [place] [address] PCP - General Family Medicine 10/26/20 documented as of this encounter
--- OUTSIDE RECORDS SUMMARY | 2025-10-02 11:11 | XMS_ITS | Encounter Summary ---
Author Organization [employer] Address [address] [place] [address] 7t [place] [address] Care Team Providers Care Assistant Women'S Soccer Coach Name Role Phone Piedad Pacheco MD Primary Care Provide r Reason for Visit * Reason Comments Med Refill Encounter Details Date Type Department Care Team (Late Contact Info) Description 06/08/[address] [address] Name, MD Juno [address] [place] [address] Social History Tobacco Use Types Packs/Day Years [...] Description 10/24/2025 9:15 AM EST Office Visit [facility] MEDICINE [address] [place] [address] [phone] Piedad Pacheco MD [address] [place] [address] [phone] 12/08/2025 1:30 PM EST Telemedicine [address] [phone] Francy Melara RN documented as of this encounter Visit Diagnoses Not on filedocumented in this encounter Care Teams Assistant Women'S Soccer Coach Relationship Specialty Start Date End Date Piedad Pacheco MD 230 [place] [address] PCP - General Family Medicine 10/26/20 documented as of this encounter
--- OUTSIDE RECORDS SUMMARY | 2025-10-02 11:11 | XMS_ITS | Encounter Summary ---
Author Organization [employer] Address 75 [facility] 7t [place] [address] Care Team Providers Care Culture Manager Name Role Phone Piedad Pacheco MD Primary Care Provide r Reason for Visit * Reason Onset Date Comments Med Refill 09/26/2024 Encounter Details Date Type Department Care Team ([facility] Contact Info) Description 09/26/2024 Telephone [facility] MEDICINE 230 [place], [place] [phone] Piedad Pacheco MD 230 [place] [address] Med Refill Social History Tobacco Use Types [...] immediate release tablet To be sent to: [facility] [address] [place] [address] documented in this encounter Plan of Treatment Upcoming Encounters Date Type Department Care Team (Late st Contact Info) Description 10/24/2025 9:15 AM EST Office Visit [facility] MEDICINE [address] [place] [address] Piedad Pacheco MD [address] [place] [address] 12/08/2025 1:30 PM EST Telemedicine [facility] MEDICINE [address] [place] [address] [phone] Francy Melara RN documented as of this encounter Visit Diagnoses Not on filedocumented in this encounter Additional Health Concerns Assessment Noted Time PHQ-9 Depression Total Score: 0 07/14/20 23 11:16 AM EDT documented as of this encounter Care Teams Culture Manager Relationship Specialty Start Date End Date Piedad Pacheco MD 230 [place] [address] PCP - General Family Medicine 10/26/20 documented as of this encounter
--- OUTSIDE RECORDS SUMMARY | 2025-10-02 11:11 | XMS_ITS | Encounter Summary ---
Author Organization [employer] Address 75 [facility] 7t [place] [address] Care Team Providers Care Manager Paid Name Role Phone Piedad Pacheco MD Primary Care Provide r Encounter Details Date Type Department Care Team ([facility] st Contact Info) Description 09/30/2024 Orders Only [facility] MEDICINE 230 [place], [place] [phone] Piedad Pacheco MD 230 [place] [address] Social History Tobacco Use Types Packs/Day Years [...] Description 10/24/2025 9:15 AM EST Office Visit [facility] MEDICINE [address] [place] [address] Piedad Pacheco MD [address] [place] [address] 12/08/2025 1:30 PM EST Telemedicine [facility] MED[facility]INE [address] [place] [address] Francy Melara RN documented as of this encounter Visit Diagnoses Not on filedocumented in this encounter Additional Health Concerns Assessment Noted Time PHQ-9 Depression Total Score: 0 07/14/20 23 11:16 AM EDT documented as of this encounter Care Teams Manager Paid Relationship Specialty Start Date End Date Piedad Pacheco MD [address] [place] [address] PCP - General Family Medicine 10/26/20 documented as of this encounter
--- OUTSIDE RECORDS SUMMARY | 2025-10-02 11:11 | XMS_ITS | Encounter Summary ---
Author Organization [employer] Address 75 [facility] 7t [place] [address] Care Team Providers Care Medical Information Officer Name Role Phone Piedad Pacheco MD Primary Care Provide r Encounter Details Date Type Department Care Team (Late st Contact Info) Description 03/31/2023 Orders Only [facility] MED & PEDS [address] [place], [place] [phone] Jen Cortez LPN Social History Tobacco Use [...] Description 10/24/2025 9:15 AM EST Office Visit [facility] MEDICINE [address] [place] [address] [phone] Piedad Pacheco MD [address] [place] [address] 12/08/2025 1:30 PM EST Telemedicine [address] [phone] Francy Melara RN documented as of this encounter Visit Diagnoses Not on filedocumented in this encounter Care Teams Medical Information Officer Relationship Specialty Start Date End Date Piedad Pacheco MD [address] [place] [address] PCP - General Family Medicine 10/26/20 documented as of this encounter
--- OUTSIDE RECORDS SUMMARY | 2025-10-02 11:11 | XMS_ITS | Encounter Summary ---
Author Organization [employer] Address 75 [facility] 7t [place] [address] Care Team Providers Care Junior Programmer Analyst Name Role Phone Piedad Pacheco MD Primary Care Provide r Reason for Visit * Reason Onset Date Comments Pt1 09/28/2024 Encounter Details Date Type Department Care Team ([facility] Contact Info) Description 09/28/2024 Telephone [facility] MEDICINE 230 [place], [place] [phone] Piedad Pacheco MD 230 [place] [address] Pt1 Social History Tobacco Use Types Packs/Day [...] name or facility name: Urology Facility Address: [address] [place] [address] Escort needed: Y/N: Yes Do you have a wheelchair: Y/N: Yes If yes- Manual or electric: Electric Visits: 1 x 3 months Patient calling requesting PT1 Home Address verified: Y/N: Yes Provider name or facility name: [facility] Address: [address] [place] [phone] Escort needed: Y/N: Yes Do you have [...] 9:15 AM EST Office Visit [facility] MEDICINE [address] [place] [address] Piedad Pacheco MD [address] [place] [address] 12/08/2025 1:30 PM EST Telemedicine [address] [address] Francy Melara RN documented as of this encounter Visit Diagnoses Not on filedocumented in this encounter Additional Health Concerns Assessment Noted Time PHQ-9 Depression Total Score: 0 07/14/20 23 11:16 AM EDT documented as of this encounter Care Teams Junior Programmer Analyst Relationship Specialty Start Date End Date Piedad Pacheco MD [address] [place] [address] PCP - General Family Medicine 10/26/20 documented as of this encounter
--- OUTSIDE RECORDS SUMMARY | 2025-10-02 11:11 | XMS_ITS | Encounter Summary ---
Author Organization [employer] Address 75 [facility] 7t [place] [address] Care Team Providers Care Endocrinology Specialist Name Role Phone Piedad Pacheco MD Primary Care Provide r Encounter Details Date Type Department Care Team (Late st Contact Info) Description 01/09/2023 Orders Only [facility] MED & PEDS [address] [place], [place] [phone] Jen Cortez LPN Social History Tobacco Use [...] Description 10/24/2025 9:15 AM EST Office Visit [facility] MEDICINE [address] [place] [address] [phone] Piedad Pacheco MD [address] [place] [address] 12/08/2025 1:30 PM EST Telemedicine [address] [phone] Francy Melara RN documented as of this encounter Visit Diagnoses Not on filedocumented in this encounter Care Teams Endocrinology Specialist Relationship Specialty Start Date End Date Piedad Pacheco MD [address] [place] [address] PCP - General Family Medicine 10/26/20 documented as of this encounter
--- OUTSIDE RECORDS SUMMARY | 2025-10-02 11:11 | XMS_ITS | Clinical Summary ---
Author Organization [address] [facility] Address [address] [place] [address] Phone Care Team Providers Care Trestle Builder Name Role Phone Piedad Pacheco MD Primary Care Provide r Encounters Date Type Department Care Team Description 08/15/2025 Telephone Neurosurgery [facility] [address] [facility] [address] [place] [phone] Kirsten Machado MD from Last 3 Months Surgical History Surgery [...] Years Used Date Smoking Tobacco: Former Cigarettes 0.3 Q uit: 07/11/2012 Smokeless Tobacco: Never Alcohol [...] Health Maintenance Due Date Last Done Comments Colorectal Cancer Screening: Colonoscopy 1961 Zoster Vaccines (1 of 2) 2011 Pneumococcal Vaccine: 50+ Years (2 of 2 - PCV) 08/29/2020 08/29/2019, 04/23/2015 HIV Screening 11/15/2023 Hepatitis C Screening 11/15/2023 Medicare Annual Wellness Visit 11/15/2023 Social Influencers of Health Screening 11/15/2023 Depression Screening 10/12/2024 Hypertension/CHF/CAD Annual BMP Blood Test 03/24/2025 03/24/2024, 03/23/2024, 03/22/2024 COVID-19 Vaccine (1 - season) 2025 Influenza Vaccine (#1) 2025 , 08/29/2019, 07/23/2017, [...] MEDICARE ADVANTAGE [place]ICAID - [place] Care Teams Trestle Builder Relationship Specialty Start Date End Date Piedad Pacheco MD [address] [place] [phone] PCP - General 07/15/23
--- OUTSIDE RECORDS SUMMARY | 2025-10-02 11:11 | XMS_ITS | Encounter Summary ---
Author Organization [employer] Address [address] [place] [address] Care Team Providers Care Casting Plug Assembler Name Role Phone Piedad Pacheco MD Primary Care Provide r Encounter Details Date Type Department Care Team (Late st Contact Info) Description 01/26/2025 Lab Requisition [facility] - Main Lab [address] [facility] [place] [phone] Juan Davidson MD [address] [place] [address] Urinary tract infection, site not specified Social [...] reflex microscopic (01/26/2025 1:12 PM EDT) Specific [place] Urine 1.026 1.003 - 1.030 LAB URINALYSIS - AUTOMATED METHOD 01/26/2025 7:[address] [facility] pH, Urine 5.5 5.0 - 8.0 pH LAB URINALYSIS - AUTOMATED METHOD 01/26/2025 7:[address] [facility] Leukocytes, Urine Negative Negative LAB URINALYSIS - AUTOMATED METHOD 01/26/2025 7:[address] [facility] Nitrite, Urine Negative Negative LAB URINALYSIS - AUTOMATED METHOD 01/26/2025 7:[address] [facility] Protein, Urine Trace <=Trace mg/dL LAB URINALYSIS - AUTOMATED METHOD 01/26/2025 7:[address] [facility] Glucose, Urine >=1000(A) Negative mg/dL LAB URINALYSIS - AUTOMATED METHOD 01/26/2025 7:[address] [facility] Ketones, Urine Negative Negative mg/dL LAB URINALYSIS - AUTOMATED METHOD 01/26/2025 7:[address] [facility] Urobilinogen , Urine 1.0 0.2 - 1.0 mg/dL LAB URINALYSIS - AUTOMATED METHOD 01/26/2025 7:[address] [facility] Bilirubin, Urine Negative Negative LAB URINALYSIS - AUTOMATED METHOD 01/26/2025 7:[address] [facility] Blood, Urine Negative Negative LAB URINALYSIS - AUTOMATED METHOD 01/26/2025 7:02 PM EDT [facility] Urine Urine specimen obtained by clean catch procedure / Unknown 01/26/2025 1:12 PM EDT 01/26/2025 6:10 PM EDT Juan Davidson MD LAB URINE ORDERABLES Final Result [facility] [address] [place] [address], [place] [phone] * Complete blood count (01/26/2025 1:12 PM EDT) WBC 9.1 4.8 - 10.8 K/mcL LAB HEMETOLOGY METHOD 01/26/2025 6:52 PM EDT [facility] RBC 5.40 4.50 - 5.50 M/mcL LAB HEMETOLOGY METHOD 01/26/2025 6:52 PM EDT [facility] Hemoglobin 16.5 13.5 - 17.5 g/dL LAB HEMETOLOGY METHOD 01/26/2025 6:52 PM EDT [facility] Hematocrit 50.1 42.0 - 54.0 % LAB HEMETOLOGY METHOD 01/26/2025 6:52 PM EDT [facility] MCV 92.9 79.0 - 98.0 FL LAB HEMETOLOGY METHOD 01/26/2025 6:52 PM EDT [facility] MCH 30.6 27.0 - 32.0 pcg LAB HEMETOLOGY METHOD 01/26/2025 6:52 PM EDT [facility] MCHC 32.9 32.0 - 37.0 g/dL LAB HEMETOLOGY METHOD 01/26/2025 6:52 PM EDT [facility] RDW 12.1 11.0 - 15.0 % LAB HEMETOLOGY METHOD 01/26/2025 6:52 PM EDT [facility] Platelets 160 130 - 400 K/mcL LAB HEMETOLOGY METHOD 01/26/2025 6:52 PM EDT [facility] MPV 10.9 7.0 - 11.0 FL LAB HEMETOLOGY METHOD 01/26/2025 6:52 PM EDT [facility] NRBC 0.0 <1.0 % LAB HEMETOLOGY METHOD 01/26/2025 6:52 PM EDT [facility] NRBC Absolute 0.00 <0.10 K/mcL LAB HEMETOLOGY METHOD 01/26/2025 6:52 PM EDT [facility] Blood Venous blood specimen / Unknown 01/26/2025 1:12 PM EDT 01/26/2025 6:10 PM EDT Juan Davidson MD LAB BLOOD ORDERABLES Final Result Performing Organization Address City/[facility]/ZIP Co de Phone Number [facility] [address] [place] [address], [place] [phone] * Culture urine (01/26/2025 1:12 PM EDT) Culture, Urine 10,000-49,000 CFU/mL Mixed urogenital alida, no uropathogens present. Suggest repeat specimen if clinically indicated. 01/27/2025 2:25 PM EDT [facility] Urine Urine specimen obtained by clean catch procedure / Unknown 01/26/2025 1:12 PM EDT 01/26/2025 6:10 PM EDT Juan Davidson MD LAB MICROBIOLOGY - GENERAL ORDERABLES Final Result Performing Organization Address [facility]/ZIP Co de Phone Number [facility] [address] [place] [address], [place] [phone] documented in this encounter Visit Diagnoses Diagnosis Urinary tract infection, site not specified documented in this encounter Care Teams Casting Plug Assembler Relationship Specialty Start Date End Date Piedad Pacheco MD [address] [phone] PCP - General 07/15/23 documented as of this encounter
--- OUTSIDE RECORDS SUMMARY | 2025-10-02 11:11 | XMS_ITS | Encounter Summary ---
Author Organization [employer] Address 75 [facility] 7t [place] [address] Care Team Providers Care Government Service Executive Name Role Phone Piedad Pacheco MD Primary Care Provide r Reason for Visit * Reason Onset Date Comments Appointment 12/26/2022 Encounter Details Date Type Department Care Team ([facility] Contact Info) Description 12/26/2022 Telephone [facility] 230 [place], [place] [phone] Ruddy Vazquez DDS 230 [place] [address] Appointment Social History Tobacco Use Types Packs/Day [...] Description 10/24/2025 9:15 AM EST Office Visit [address] [address] Piedad Pacheco MD [address] [place] [address] 12/08/2025 1:30 PM EST Telemedicine [address] [phone] Francy Melara RN documented as of this encounter Visit Diagnoses Not on filedocumented in this encounter Care Teams Government Service Executive Relationship Specialty Start Date End Date Piedad Pacheco MD [address] [place] [address] PCP - General Family Medicine 10/26/20 documented as of this encounter
--- OUTSIDE RECORDS SUMMARY | 2025-10-02 11:11 | XMS_ITS | Encounter Summary ---
Author Organization [employer] Address 75 [facility] 7t [place] [address] Care Team Providers Care Vegetable Buncher Name Role Phone Piedad Pacheco MD Primary Care Provide r Reason for Visit * Reason Onset Date Comments Referral 07/25/2025 Encounter Details Date Type Department Care Team ([facility] Contact Info) Description 07/25/2025 Telephone [facility] MED[facility] 230 [place], [place] [phone] Piedad Pacheco MD 230 [place] [address] Referral Social History Tobacco Use Types Packs/Day [...] for Physical Therapy to be send [facility] and not to [facility] Contact pt at [phone] documented in this encounter Plan of Treatment Upcoming Encounters Date Type Department Care Team (Late st Contact Info) Description 10/24/2025 9:15 AM EST Office Visit [facility] [address] [place] [address] Piedad Pacheco MD 230 [place] [address] 12/08/2025 1:30 PM EST Telemedicine [facility] [address] [place] [address] Francy Melara RN documented as of this encounter Visit Diagnoses Not on filedocumented in this encounter Additional Health Concerns Assessment Noted Time PHQ-9 Depression Total Score: 0 10/19/19 25 10:23 AM EST documented as of this encounter Care Teams Vegetable Buncher Relationship Specialty Start Date End Date Piedad Pacheco MD 230 [place] [address] PCP - General Family Medicine 10/26/20 documented as of this encounter
--- OUTSIDE RECORDS SUMMARY | 2025-10-02 11:11 | XMS_ITS | Encounter Summary ---
Author Organization [employer] Address 75 [facility] 7t [place] [address] Care Team Providers Care Folder And Notcher Name Role Phone Piedad Pacheco MD Primary Care Provide r Encounter Details Date Type Department Care Team (Latest Contact Info) Description 07/15/2021 Abstract [facility] CONVERSIONS Dental, Provider, DDS Social History [...] Description 10/24/2025 9:15 AM EST Office Visit [address] [address] Piedad Pacheco MD [address] [place] [address] 12/08/2025 1:30 PM EST Telemedicine [address] [phone] Francy Melara RN documented as of this encounter Visit Diagnoses Not on filedocumented in this encounter Care Teams Folder And Notcher Relationship Specialty Start Date End Date Piedad Pacheco MD [address] [place] [address] [phone] PCP - General Family Medicine 10/26/20 documented as of this encounter
--- OUTSIDE RECORDS SUMMARY | 2025-10-02 11:11 | XMS_ITS | Encounter Summary ---
Author Organization [employer] Address 75 [facility] 7t [place] [address] Care Team Providers Care Automatic Maintainer Name Role Phone Piedad Pacheco MD Primary Care Provide r Reason for Visit * Reason Onset Date Comments PT1 05/03/2024 Encounter Details Date Type Department Care Team ([facility] Contact Info) Description 05/03/2024 Telephone [facility] MEDICINE 230 [place], [place] [phone] Piedad Pacheco MD 230 [place] [address] PT1 Social History Tobacco Use Types Packs/Day [...] Provider name or facility name: Facility Address: [address] [place] [address] [address] [place] [address] Escort needed: Y/N: Yes will be going with pt Do you have a wheelchair: Y/N: Yes If yes- Manual or electric: electric Visits: 4-5 times a year documented in this encounter Plan of Treatment Upcoming Encounters Date Type Department Care Team (Late st Contact Info) Description 10/24/2025 9:15 AM EST Office Visit [facility] MEDICINE [address] [place] [address] Piedad Pacheco MD [address] [place] [address] 12/08/2025 1:30 PM EST Telemedicine [address] [address] Francy Melara RN documented as of this encounter Visit Diagnoses Not on filedocumented in this encounter Additional Health Concerns Assessment Noted Time PHQ-9 Depression Total Score: 0 07/14/20 11:16 AM EDT documented as of this encounter Care Teams Automatic Maintainer Relationship Specialty Start Date End Date Piedad Pacheco MD 230 [place] [address] PCP - General Family Medicine 10/26/20 documented as of this encounter
--- OUTSIDE RECORDS SUMMARY | 2025-10-02 11:11 | XMS_ITS | Encounter Summary ---
Author Organization [employer] Address 75 [facility] 7t [place] [address] Care Team Providers Care Banjo Repair Person Name Role Phone Piedad Pacheco MD Primary Care Provide r Encounter Details Date Type Department Care Team ([facility] st Contact Info) Description 10/28/2024 Telephone [facility] MEDICINE 230 [place], [place] [phone] Piedad Pacheco MD 230 [place], [place] [phone] Social History Tobacco Use Types Packs/Day Years [...] Description 10/24/2025 9:15 AM EST Office Visit [facility] MED[facility]INE [address] [place] [address] Piedad Pacheco MD [address] [place] [address] 12/08/2025 1:30 PM EST Telemedicine [address] [address] Francy Melara RN documented as of this encounter Visit Diagnoses Not on filedocumented in this encounter Additional Health Concerns Assessment Noted Time PHQ-9 Depression Total Score: 0 10/19/19 25 10:23 AM EST documented as of this encounter Care Teams Banjo Repair Person Relationship Specialty Start Date End Date Piedad Pacheco MD [address] [place] [phone] PCP - General Family Medicine 10/26/20 documented as of this encounter
--- OUTSIDE RECORDS SUMMARY | 2025-10-02 11:11 | XMS_ITS | Encounter Summary ---
Author Organization [employer] Address 75 [facility] 7t [place] [address] Care Team Providers Care Sales And Marketing Administrator Name Role Phone Piedad Pacheco MD Primary Care Provide r Encounter Details Date Type Department Care Team (Late st Contact Info) Description 01/28/2023 Orders Only [facility] MED & PEDS [address] [place], [place] [phone] Jen Cortez LPN Social History Tobacco Use [...] 10/24/2025 9:15 AM EST Office Visit [facility] MEDICINE [address] [place] [address] [phone] Piedad Pacheco MD [address] [place] [address] 12/08/2025 1:30 PM EST Telemedicine [address] [phone] Francy Melara RN documented as of this encounter Visit Diagnoses Not on filedocumented in this encounter Care Teams Sales And Marketing Administrator Relationship Specialty Start Date End Date Piedad Pacheco MD [address] [place] [address] PCP - General Family Medicine 10/26/20 documented as of this encounter
--- OUTSIDE RECORDS SUMMARY | 2025-10-02 11:11 | XMS_ITS | Encounter Summary ---
Author Organization [employer] Address 75 [facility] 7t [place] [address] Care Team Providers Care Benzene Still Utility Operator Name Role Phone Piedad Pacheco MD Primary Care Provide r Encounter Details Date Type Department Care Team (Late st Contact Info) Description 11/07/2022 Orders Only [facility] MED [facility] PEDS [address] [place], [place] [phone] Jen Cortez LPN Social History Tobacco Use [...] 10/24/2025 9:15 AM EST Office Visit [facility] MEDICINE [address] [place] [address] [phone] Piedad Pacheco MD [address] [place] [address] 12/08/2025 1:30 PM EST Telemedicine [address] [phone] Francy Melara RN documented as of this encounter Visit Diagnoses Not on filedocumented in this encounter Care Teams Benzene Still Utility Operator Relationship Specialty Start Date End Date Piedad Pacheco MD [address] [place] [phone] PCP - General Family Medicine 10/26/20 documented as of this encounter
--- OUTSIDE RECORDS SUMMARY | 2025-10-02 11:12 | XMS_ITS | Encounter Summary ---
Author Organization [employer] Address 75 [facility] 7t [place] [address] Care Team Providers Care Manager Fine Name Role Phone Piedad Pacheco MD Primary Care Provide r Reason for Visit * Reason Comments Med Refill Encounter Details Date Type Department Care Team ([facility] st Contact Info) Description 02/12/[address] [facility] MEDICINE 230 [place], [place] [phone] Piedad Pacheco MD 230 [place] [address] Insomnia, unspecified type Social History Tobacco Use [...] Description 10/24/2025 9:15 AM EST Office Visit [address] [address] Piedad Pacheco MD [address] [place] [address] 12/08/2025 1:30 PM EST Telemedicine [address] [address] Francy Melara RN documented as of this encounter Visit Diagnoses Diagnosis Insomnia, unspecified type documented in this encounter Additional Health Concerns Assessment Noted Time PHQ-9 Depression Total Score: 0 07/14/20 23 11:16 AM EDT documented as of this encounter Care Teams Manager Fine Relationship Specialty Start Date End Date Piedad Pacheco MD [address] [place] [phone] PCP - General Family Medicine 10/26/20 documented as of this encounter
--- OUTSIDE RECORDS SUMMARY | 2025-10-02 11:12 | XMS_ITS | Encounter Summary ---
Author Organization [employer] Address 75 [facility] 7t [place] [address] Care Team Providers Care Termination Clerk Name Role Phone Piedad Pacheco MD Primary Care Provide r Reason for Visit * Reason Comments Med Refill Encounter Details Date Type Department Care Team ([facility] st Contact Info) Description 12/01/2023 Refill [facility] MEDICINE 230 [place], [place] [phone] Name, MD Juno 230 [place] [address] Social History Tobacco Use Types Packs/Day Years [...] Description 10/24/2025 9:15 AM EST Office Visit [address] [address] Piedad Pacheco MD [address] [place] [address] 12/08/2025 1:30 PM EST Telemedicine [facility]INE [address] [place] [address] Francy Melara RN documented as of this encounter Visit Diagnoses Not on filedocumented in this encounter Additional Health Concerns Assessment Noted Time PHQ-9 Depression Total Score: 0 07/14/20 23 11:16 AM EDT documented as of this encounter Care Teams Termination Clerk Relationship Specialty Start Date End Date Piedad Pacheco MD [address] [place] [address] PCP - General Family Medicine 10/26/20 documented as of this encounter
--- OUTSIDE RECORDS SUMMARY | 2025-10-02 11:12 | XMS_ITS | Encounter Summary ---
Author Organization [employer] Address 75 [facility] 7t [place] [address] Care Team Providers Care Roof Fitter Name Role Phone Piedad Pacheco MD Primary Care Provide r Encounter Details Date Type Department Care Team ([facility] Contact Info) Description 10/02/2025 Orders Only GENERIC EXTERNAL DATA DEPARTMENT Provider, [...] Description 10/24/2025 9:15 AM EST Office Visit [address] [address] Piedad Pacheco MD [address] [place] [address] 12/08/2025 1:30 PM EST Telemedicine [address] [address] Francy Melara, SLADE documented as of this encounter Goals Goal Patient Goal Type Associated Problems Recent Progress Patient-Stated? Author Help patients manage their type 2 diabetes Care Plan Help patients manage their type 2 diabetes No Francy Melara RN Patient has chronic kidney disease Care Plan Patient has chronic kidney disease No Francy Melara RN Patient has chronic kidney disease Care Plan Patient has chronic kidney disease No Francy Melara RN Patient has chronic kidney disease Care Plan Patient has chronic kidney disease No Emma Penaloza Patient has chronic kidney disease Care Plan Patient has chronic kidney disease No Emma Penaloza Patient has chronic kidney disease Care Plan Patient has chronic kidney disease No Colon Emma Waite Patient has chronic kidney disease Care Plan Patient has chronic kidney disease No Poonam Mroa, SLADE Patient has chronic kidney disease Care Plan Patient has chronic kidney disease No Collin Briggs documented as of this encounter Procedures Procedure Name Priority Date/Time Associated Diagnosis Comments CBC WITH AUTO DIFFERENTIAL Routine 10/02/2025 10:01 AM EST PROTHROMBIN TIME-INR Routine 10/02/2025 10:01 AM EST documented in this encounter Results * CBC auto differential (10/02/2025 10:01 AM EST) White Blood Count 6.8 4.8 - 10.8 X10*3/uL [facility] Red Blood Count 5.33 4.60 - 5.80 X10*6/uL [facility] Hemoglobin 16.4 14.0 - 18.0 g/dl [facility] Hematocrit 49.4 42.0 - 52.0 % [facility] Mean Corpuscular Volume 92.7 80.0 - 98.0 fL [facility] Mean Corpuscular Hemoglobin 30.8 27.0 - 33.0 pg [facility] Mean Corpuscular HGB Conc 33.2 31.0 - 36.0 g/dl [facility] Red Cell Distribution Width 12.6 11.0 - 16.0 % [facility] Platelet Count 174 160 - 400 X10*3/uL [facility] Mean Platelet Volume 10.2 9.4 - 12.4 fL [facility] Neutrophils Percent Auto 66.4 45 - 73 % [facility] Imm Gran Pct Auto 0.4 0.0 - 0.4 % [facility] Lymphocytes Percent Auto 26.2 20 - 40 % [facility] Monocytes Percent Auto 6.0 2 - 11 % [facility] Eosinophils Percent Auto 0.6 0 - 4 % [facility] Basophils Percent Auto 0.4 0 - 2 % [facility] NRBC Pct Auto 0.0 0.0 - 0.2 /100WBC [facility] Neutrophils Absolute Auto 4.5 2.0 - 8.3 x10*3/uL [facility] Imm Gran Abs Auto 0.03 0.00 - 0.03 X10*3/uL [facility] Lymphocytes Absolute Auto 1.8 1.2 - 4.9 X10*3/uL [facility] Monocytes Absolute Auto 0.4 0.1 - 1.2 X10*3/uL [facility] Eosinophils Absolute Auto 0.0 0.0 - 0.4 X10*3/uL [facility] Basophils Absolute Auto 0.0 0.0 - 0.2 X10*3/uL [facility] NRBC Abs Auto 0.000 0.0 - 0.012 X10*3/uL [facility] 10/02/2025 10:0 1 AM EST 10/02/2025 10:01 AM EST Generic External Data Provider LAB BLOOD ORDERAB LES Final Result Performing Organization Address [facility] [address]/[facility] de Phone Number [facility] [address] [place] [phone] * (ABNORMAL) Prothrombin Time-INR (10/02/2025 10:01 AM EST) Prothrombin Time 10.7(L) 11.2 - 13.5 SEC [facility] INTERNATIONAL NORM RATIO 0.9 0.9 - 1.1 [facility] Comment:INTERNATIONAL NORMAL IZED RATIO (INR) REFERENCE RANGES Reference RangeFor patients not on anticoagulant therapy: 0.9 - 1.1INR ranges for oral anticoagulanttherapy:For prevention and treatment of venous thrombosis and pulmonary embolism: 2.0 - 3.0For acute myocardial infarction with aspirin therapy: 2.0 - 3.0For acute myocardial infarction without aspirin therapy: 3.0 - 4.0For patients with mechanical prosthetic heart valves: 2.5 - 3.5 10/02/2025 10:0 1 AM EST 10/02/2025 10:01 AM EST [employer] External Data Provider LAB BLOOD ORDERAB LES Final Result Performing Organization Address [facility] de Phone Number [facility] [address] [place] [phone] documented in this encounter Visit Diagnoses Not on filedocumented in this encounter Additional Health Concerns Active Problems Noted Date Diagnosed Date Help patients manage their type 2 diabetes 08/25 Patient has chronic kidney disease 08/25/2025 Patient has chronic kidney disease 08/25/2025 Patient has chronic kidney disease 08/25/2025 Patient has chronic kidney disease 09/14/2025 Patient has chronic kidney disease 09/14/2025 Patient has chronic kidney disease 09/20/2025 Patient has chronic kidney disease 09/28/2025 Assessment Noted Time PHQ-9 Depression Total Score: 0 10/19/19 25 10:23 AM EST documented as of this encounter Care Teams Roof Fitter Relationship Specialty Start Date End Date Piedad Pacheco MD [address] [place] [address] PCP - General Family Medicine 10/26/20 documented as of this encounter
--- OUTSIDE RECORDS SUMMARY | 2025-10-02 11:12 | XMS_ITS | Encounter Summary ---
Author Organization [employer] Address [address] [facility] 7t [place] [address] Care Team Providers Care Aquatic Facility Manager Name Role Phone Piedad Pacheco MD Primary Care Provide r Encounter Details Date Type Department Care Team ([facility] st Contact Info) Description 09/15/2023 Telephone [facility] MED[facility]INE 230 [place], [place] [phone] Piedad Pacheco MD 230 [place], [place] [phone] Social History Tobacco Use Types Packs/Day Years [...] [facility] [address] [place] [address] Piedad Pacheco MD [address] [place] [address] 12/08/2025 1:30 PM EST Telemedicine [address] [address] Francy Melara RN documented as of this encounter Visit Diagnoses Not on filedocumented in this encounter Additional Health Concerns Assessment Noted Time PHQ-9 Depression Total Score: 0 07/14/20 23 11:16 AM EDT documented as of this encounter Care Teams Aquatic Facility Manager Relationship Specialty Start Date End Date Piedad Pacheco MD [address] [place] [phone] PCP - General Family Medicine 10/26/20 documented as of this encounter
--- OUTSIDE RECORDS SUMMARY | 2025-10-02 11:12 | XMS_ITS | Encounter Summary ---
Author Organization [employer] Address [address] [facility] [address] 7t [place] [address] Care Team Providers Care Plastic Surgery Assistant Name Role Phone Piedad Pacheco MD Primary Care Provide r Encounter Details Date Type Department Care Team ([facility] st Contact Info) Description 12/13/2024 Orders Only [facility] [address] [place], [place] [phone] Ronald Zimmerman MD 230 [place] [address] Social History Tobacco Use Types Packs/Day Years [...] AM EST Office Visit [facility] [address] [place] [address] Piedad Pacheco MD [address] [place] [address] 12/08/2025 1:30 PM EST Telemedicine [address] [address] Francy Melara RN documented as of this encounter Visit Diagnoses Not on filedocumented in this encounter Additional Health Concerns Assessment Noted Time PHQ-9 Depression Total Score: 0 10/19/19 25 10:23 AM EST documented as of this encounter Care Teams Plastic Surgery Assistant Relationship Specialty Start Date End Date Piedad Pacheco MD [address] [place] [phone] PCP - General Family Medicine 10/26/20 documented as of this encounter
--- OUTSIDE RECORDS SUMMARY | 2025-10-02 11:12 | XMS_ITS | Encounter Summary ---
Author Organization [employer] Address 75 [facility] 7t [place] [address] Care Team Providers Care Head Greenskeeper Name Role Phone Piedad Pacheco MD Primary Care Provide r Reason for Visit * Reason Onset Date Comments PT-1 04/24/2025 Encounter Details Date Type Department Care Team ([facility] st Contact Info) Description 04/24/2025 Telephone [facility] 230 [place] [address] Piedad Pacheco MD 230 [place] [address] PT-1 Social History Tobacco Use Types Packs/Day [...] Y/N: Yes Provider name or facility name: [facility] Facility Address: [address] [place] [address] Escort needed: Y/N: Yes Do you have a wheelchair: Y/N: Yes If yes- Manual or electric: Scooter Visits: 5 a month documented in this encounter Plan of Treatment Upcoming Encounters Date Type Department Care Team ([facility] st Contact Info) Description 10/24/2025 9:15 AM EST Office Visit [facility] [address] [place] [address] Piedad Pacheco MD [address] [place] [address] 12/08/2025 1:30 PM EST Telemedicine [facility] [address] [place] [address] Francy Melara, RN documented as of this encounter Visit Diagnoses Not on filedocumented in this encounter Additional Health Concerns Assessment Noted Time PHQ-9 Depression Total Score: 0 10/19/19 25 10:23 AM EST documented as of this encounter Care Teams Head Greenskeeper Relationship Specialty Start Date End Date Piedad Pacheco MD 230 [place] [address] PCP - General Family Medicine 10/26/20 documented as of this encounter
--- OUTSIDE RECORDS SUMMARY | 2025-10-02 11:12 | XMS_ITS | Encounter Summary ---
Author Organization [employer] Address 75 [facility] 7t [place] [address] Care Team Providers Care Plastic Surgery Technician Name Role Phone Piedad Pacheco MD Primary Care Provide r Reason for Visit * Reason Comments Med Refill Encounter Details Date Type Department Care Team ([facility] st Contact Info) Description 02/10/2024 Refill [facility] 230 [place], [place] [phone] Doris Dunne MD 230 [place], [place] [phone] Restless leg syndrome Social History Tobacco Use [...] Description 10/24/2025 9:15 AM EST Office Visit [address] [address] Piedad Pacheco MD [address] [place] [address] 12/08/2025 1:30 PM EST Telemedicine [address] [address] Francy Melara RN documented as of this encounter Visit Diagnoses Diagnosis Restless leg syndrome Restless legs syndrome (RLS) documented in this encounter Additional Health Concerns Assessment Noted Time PHQ-9 Depression Total Score: 0 07/14/20 23 11:16 AM EDT documented as of this encounter Care Teams Plastic Surgery Technician Relationship Specialty Start Date End Date Piedad Pacheco MD [address] [place] [phone] PCP - General Family Medicine 10/26/20 documented as of this encounter
--- OUTSIDE RECORDS SUMMARY | 2025-10-02 11:12 | XMS_ITS | Encounter Summary ---
Author Organization [employer] Address 75 [facility] 7t [place] [address] Care Team Providers Care Advertising Agency Manager Name Role Phone Piedad Pacheco MD Primary Care Provide r Reason for Visit * Reason Onset Date Comments Med Refill 02/08/2024 Encounter Details Date Type Department Care Team ([facility] Contact Info) Description 02/08/2024 Telephone [facility] 230 [place], [place] [phone] Piedad Pacheco MD 230 [place] [address] Med Refill Social History Tobacco Use Types [...] 10:24 AM EDT Medication was sent to [facility] 238 on 09/18/23 90 day supply with 1 refill. * Telephone Encounter - Chris Briggs - 02/08/2024 9:59 AM EDT TC from pt requesting medication refill. Medications needing refill: rOPINIRole (Requip) 2 MG tablet To be sent to: [id number] documented in this encounter Plan of Treatment Upcoming Encounters Date Type Department Care Team (Late st Contact Info) Description 10/24/2025 9:15 AM EST Office Visit [facility] [address] [place] [address] Piedad Pacheco MD [address] [place] [address] [phone] 12/08/2025 1:30 PM EST Telemedicine [facility] [address] [place] [address] Francy Melara RN documented as of this encounter Visit Diagnoses Not on filedocumented in this encounter Additional Health Concerns Assessment Noted Time PHQ-9 Depression Total Score: 0 10/03/20 23 11:16 AM EDT documented as of this encounter Care Teams Advertising Agency Manager Relationship Specialty Start Date End Date Piedad Pacheco MD 230 [place] [address] PCP - General Family Medicine 10/26/20 documented as of this encounter
--- OUTSIDE RECORDS SUMMARY | 2025-10-02 11:12 | XMS_ITS | Encounter Summary ---
Author Organization [employer] Address 75 [facility] 7t [place] [address] Care Team Providers Care Insurance Billing Clerk Name Role Phone Piedad Pacheco MD Primary Care Provide r Reason for Visit * Reason Onset Date Comments Med Refill 03/10/2025 Encounter Details Date Type Department Care Team ([facility] Contact Info) Description 03/10/2025 Telephone [facility] 230 [place] [address] Piedad Pacheco MD 230 [place] [address] Med Refill Social History Tobacco Use Types [...] 2:36 PM EDT Medication was sent to [id number] on 02/06/25 #30 with 1 refill. * Telephone Encounter - Jessi Robison - 03/10/2025 2:33 PM EDT TC from pt requesting medication refill. Medications needing refill : zolpidem (Ambien) 10 MG tablet To be sent to: [facility] [address] [place] [address] documented in this encounter Plan of Treatment Upcoming Encounters Date Type Department Care Team (Late st Contact Info) Description 10/24/2025 9:15 AM EST Office Visit [facility] [address] [place] [address] Piedad Pacheco MD 230 [place] [address] 12/08/2025 1:30 PM EST Telemedicine [facility] 230 [place], [place] [phone] Francy Melara RN documented as of this encounter Visit Diagnoses Not on filedocumented in this encounter Additional Health Concerns Assessment Noted Time PHQ-9 Depression Total Score: 0 10/19/19 25 10:23 AM EST documented as of this encounter Care Teams Insurance Billing Clerk Relationship Specialty Start Date End Date Piedad Pacheco MD [address] [place] [phone] PCP - General Family Medicine 10/26/20 documented as of this encounter
--- OUTSIDE RECORDS SUMMARY | 2025-10-02 11:12 | XMS_ITS | Clinical Summary ---
Author Organization [employer] Address 75 [facility] 7t [place] [address] Care Team Providers Care Executive Staff Assistant Name Role Phone Piedad Pacheco MD [...] bedtime. Active Blood Glucose Monitoring Suppl (FreeStyle [place] Lite) w/Device kitIndications:T ype 2 diabetes mellitus [...] hyperglycemia, without long-term current use of insulin ([facility]) Use to test blood sugar 2 times [...] (Plavix) 75 MG tabletIndication s:Ischemic stroke (CMS/HCC) ([facility]) TAKE 1 TABLET BY MOUTH EVERY DAY 30 tablet 025 Active metFORMIN (Glucophage) 500 MG tabletIndication s:Type 2 diabetes mellitus with hyperglycemia, without long-term current use of insulin ([facility]) TAKE 1 TABLET BY MOUTH WITH BREAKFAST AND EVENING MEAL 180 tablet 2 Active budesonide-formo terol (Symbicort) 160-4.5 MCG/ACT inhalerIndicatio ns:Chronic obstructive pulmonary disease, unspecified COPD type (CMS/HCC) ([facility]) Inhale 2 puffs in the morning and [...] TIMES DAILY 270 tablet 1 025 Active famotidine (Pepcid) 20 MG tablet TAKE 1 TABLET BY MOUTH TWICE A DAY 180 tablet Active EQ Aspirin Adult Low Dose 81 MG EC tabletIndication s:Ischemic stroke ([facility]) ([facility]) TAKE 1 TABLET BY MOUTH EVERY DAY 90 tablet 025 Active Farxiga 10 MGIndications:Ty pe 2 diabetes mellitus with hyperglycemia, without long-term current use of insulin ([facility]) TAKE 1 TABLET BY MOUTH EVERY DAY 90 tablet 025 Active atorvastatin (Lipitor) 80 MG tabletIndication s:Ischemic stroke ([facility]) ([facility]) TAKE 1 TABLET BY MOUTH DAILY AT BEDTIME 90 tablet 025 Active zolpidem (Ambien) 10 MG tabletIndication s:Insomnia, unspecified type TAKE 1 TABLET BY MOUTH NEEDED AT BEDTIME FOR SLEEP 30 tablet 1 025 Active tadalafil (Cialis) 20 MG tablet TAKE 1 TABLET BY MOUTH 45 MINUTES BEFORE SEXUAL ACTIVITY DIRECTED 10 tablet 025 Active oxyCODONE (Roxicodone) 5 MG immediate release tabletIndication s:Lumbar radiculopathy Take 1 tablet (5 mg) by mouth every 8 (eight) hours if needed for severe pain for up to 28 days. Do not start before September 17, 2025. 84 tablet 025 2025 Active Cialis 20 MG tablet TAKE 1 [...] August 18, 2025. 84 tablet 025 2024 Discontinued(R eorder (will not trigger notification to Pharmacy)) Active Problems Problem Noted Date Diagnosed Date Coronary artery disease invo lving siletz tribe coronary artery of [place] tribe heart without angina pectoris 07/18/2025 Assessment & [...] side as late effect of cerebrovascular accident ([facility]) 05/22/2025 Assessment & Plan (07/18/2025 1:04 PM [...] with me Allergic rhinitis 10/19/2024 Ischemic stroke ([facility]) 04/26/2024 Assessment & Plan (12/27/2024 12:29 PM [...] without sciatica 0 06/19/2023 Infection of vertebra ([facility]) 06/19/2023 Assessment & Plan (12/16/2023 3:50 PM [...] 06/18/2023 Metabolic syndrome X 06/18/2023 Severe obesity ([facility]) 06/18/2023 Tinea cruris 06/18/2023 Type 2 diabetes [...] Encounters Date Type Department Care Team Description 10/02/2025 Orders Only GENERIC EXTERNAL DATA DEPARTMENT Provider, Generic External Data 09/28/2025 Telephone [facility] 230 [place] [address] Piedad Pacheco MD Med Refill 09/14/2025 Refill [facility] [place] [address] Piedad Pacheco MD Lumbar radiculopathy 09/14/2025 Refill [facility] 230 [facility] [place] [address] Piedad Pacheco MD 08/25/2025 11:30 AM EST Telemedicine [facility] 230 [facility] [place] [address] Francy Melara, SLADE Long-term current use of opiate analgesic 08/25/2025 Refill [facility] [address] [place] [address] Piedad Pacheco MD Insomnia, unspecified type 08/25/2025 Travel 08/25/2025 Telephone [facility] MEDIC[facility] [address] [place] [address] Francy Melara, RN [facility] Tele [employer] RV 08/17/2025 Refill [facility] [address] [place] [address] Piedad Pacheco MD Lumbar radiculopathy 08/17/2025 Telephone [facility] [address] [place] [address] Piedad Pacheco MD Med Refill 08/17/2025 Refill [facility] [address] [place] [address] Piedad Pacheco MD Type 2 diabetes mellitus with hyperglycemia, without long-term current use of insulin (HCC); Ischemic stroke (CMS/HCC) (HCC); Insomnia, unspecified type 08/09/2025 Orders Only [facility] [address] [place] [address] Piedad Pacheco MD Spondylosis of lumbosacral spine with radiculopathy (Primary Dx) 08/04/2025 Telephone [facility] [address] [place] [address] Piedad Pacheco MD shelbie recall 08/01/2025 Refill [facility] [address] [place] [address] Piedad Pacheco MD Ischemic stroke (CMS/HCC) (HCC) 07/26/2025 Refill [facility] [address] [place] [address] Piedad Pacheco MD 07/25/2025 Telephone [facility] [address] [place] [address] Piedad Pacheco MD Referral 07/25/2025 Telephone [facility] [address] [place] [address] Piedad Pacheco MD Med Refill 07/24/2025 Refill [facility] [address] [place] [address] Piedad Pacheco MD Restless leg syndrome 07/21/[address] [address] Piedad Pacheco MD Referral 07/20/[address] [address] Piedad Pacheco MD Lumbar radiculopathy 07/18/2025 10:00 AM EDT Office Visit [address] [address] Piedad Pacheco MD Hemiparesis affecting right side as late effect of cerebrovascular accident (CMS/HCC) (HCC); Chronic heart failure, unspecified heart failure type (HCC); Chronic obstructive pulmonary disease, unspecified COPD type (CMS/HCC) (HCC); Recurrent major depressive episodes, moderate (CMS/HCC) (HCC); Dietary counseling; Exercise counseling; Type 2 diabetes mellitus with hyperglycemia, without long-term current use of insulin (HCC); Coronary artery disease involving siletz tribe coronary artery of siletz tribe heart without angina pectoris; Spondylosis of lumbosacral spine with radiculopathy; Heartburn 07/18/2025 Travel 07/17/[address] [address] Piedad Pacheco MD Chart Prep 07/17/[address] [address] Piedad Pacheco MD 07/11/2025 Patient Outreach [address] [address] Piedad Pacheco MD Pre-visit Planning ([facility] screening completed on 10/19/2024) from Last 3 Months Immunizations Immunization Administration [...] Description 10/24/2025 9:15 AM EST Office Visit [facility] [address] [place] [address] Piedad Pacheco MD [address] [place] [address] 12/08/2025 1:30 PM EST Telemedicine [address] [address] Francy Melara, LSADE Health Maintenance Due Date Last Done Comments [...] 10/19/2025 10/19/2024, 10/19/19 SDOH Screening 10/19/2025 10/19/2024 Diabetes: Hemoglobin A1C [...] manage their type 2 diabetes No Francy Melara, SLADE Patient has chronic kidney disease Care Plan Patient has chronic kidney disease No Francy Melara RN Patient has chronic kidney disease Care Plan Patient has chronic kidney disease No Francy Melara RN Patient has chronic kidney disease Care Plan Patient has chronic kidney disease No Colon WaiteEmma nixon Patient has chronic kidney disease Care Plan Patient has chronic kidney disease No Colon Waite, Emma Patient has chronic kidney disease Care Plan Patient has chronic kidney disease No Colon Waite, Emma Patient has chronic kidney disease Care Plan Patient has chronic kidney disease No Poonam Mora RN Patient has chronic kidney disease Care Plan Patient has chronic kidney disease No Collin Briggs Procedure Name Priority Date/Time Associated Diagnosis Comments CBC WITH AUTO DIFFERENTIAL Routine 10/02/2025 10:01 AM EST PROTHROMBIN TIME-INR Routine 10/02/2025 10:01 AM EST POCT GLYCATED HEMOGLOBIN, TOTAL Routine 07/18/2025 10:31 AM EDT Type 2 diabetes mellitus with hyperglycemia, without long-term current use of insulin (HCC) POCT GLUCOSE (CPT-44497) Routine 07/18/2025 10:31 AM EDT Type 2 diabetes mellitus with hyperglycemia, without long-term current use of insulin (HCC) AMB REFERRAL TO OPHTHALMOLOGY Routine 12/15/2024 Disorder [...] Recently Relevant to Health Maintenance Results * CBC auto differential (10/02/2025 10:01 AM EST) White Blood Count 6.8 4.8 - 10.8 X10*3/uL [facility] Red Blood Count 5.33 4.60 - 5.80 X10*6/uL [facility] Hemoglobin 16.4 14.0 - 18.0 g/dl [facility] Hematocrit 49.4 42.0 - 52.0 % [facility] Mean Corpuscular Volume 92.7 80.0 - 98.0 fL [facility] Mean Corpuscular Hemoglobin 30.8 27.0 - 33.0 pg [facility] Mean Corpuscular HGB Conc 33.2 31.0 - 36.0 g/dl [facility] Red Cell Distribution Width 12.6 11.0 - 16.0 % [facility] Platelet Count 174 160 - 400 X10*3/uL [facility] Mean Platelet Volume 10.2 9.4 - 12.4 fL [facility] Neutrophils Percent Auto 66.4 45 - 73 % [facility] Imm Gran Pct Auto 0.4 0.0 - 0.4 % [facility] Lymphocytes Percent Auto 26.2 20 - 40 % [facility] Monocytes Percent Auto 6.0 2 - 11 % [facility] Eosinophils Percent Auto 0.6 0 - 4 % [facility] Basophils Percent Auto 0.4 0 - 2 % [facility] NRBC Pct Auto 0.0 0.0 - 0.2 /100WBC [facility] Neutrophils Absolute Auto 4.5 2.0 - 8.3 x10*3/uL [facility] Imm Gran Abs Auto 0.03 0.00 - 0.03 X10*3/uL [facility] Lymphocytes Absolute Auto 1.8 1.2 - 4.9 X10*3/uL [facility] Monocytes Absolute Auto 0.4 0.1 - 1.2 X10*3/uL [facility] Eosinophils Absolute Auto 0.0 0.0 - 0.4 X10*3/uL [facility] Basophils Absolute Auto 0.0 0.0 - 0.2 X10*3/uL [facility] NRBC Abs Auto 0.000 0.0 - 0.012 X10*3/uL [facility] 10/02/2025 10:0 1 AM EST 10/02/2025 10:01 AM EST us Generic External Data Provider LAB BLOOD ORDERAB LES Final Result [facility] [address] [place] [address] [phone] * (ABNORMAL) Prothrombin Time-INR (10/02/2025 10:01 AM EST) Prothrombin Time 10.7(L) 11.2 - 13.5 SEC [facility] INTERNATIONAL NORM RATIO 0.9 0.9 - 1.1 [facility] Comment:INTERNATIONAL NORMAL IZED RATIO (INR) [...] 1 AM EST 10/02/2025 10:01 AM EST us Generic External Data Provider LAB BLOOD ORDERAB LES Final Result [facility] [address] [place] [address] [phone] * (ABNORMAL) POCT Hgb A1c (07/18/2025 10:31 AM EDT) Hemoglobin A1C 6.5(A) 4.0 - 5.7 % QC Media Lot # [id number] Lot# Expiration Date [id number] Blood 07/18/2025 10:3 1 AM EDT Piedad Little MD POINT OF CARE TEST EN TER/EDIT ORDERABLES Final Result * (ABNORMAL) POCT Glucose (07/18/2025 10:31 AM EDT) Glucose Blood, POC 223(A) 60 - 200 mg/dL QC Media Lot # [id number] Lot# Expiration Date [id number] Blood Capillary blood specimen / Unknown 07/18/2025 10:31 AM EDT Piedad Little MD POINT OF CARE TEST EN TER/EDIT ORDERABLES Final Result * Referral to Ophthalmology (12/15/2024) Shanika Israel OD OUTPATIENT REFERRAL ORDERABLE S Final Result * (ABNORMAL) Lipid Panel, Standard (08/08/2024 2:44 PM EDT) Triglycerides 106 <150 mg/dL [facility] Comment:Desirable Triglyceri de: less than 150 mg/dLBorderline High Triglyceride 150-199 mg/dLHigh Triglyceride: 200-499 mg/dLVery High Triglyceride: greater than or equal to 5OO mg/dL Cholesterol 84 <200 mg/dL [facility] Comment:Desirable Cholestero l: less than 200 mg/dLBorderline High Cholesterol: 200-239 mg/dLHigh Cholesterol: greater than 239 mg/dL LDL Cholesterol Calculated 29 <100 mg/dL [facility] Comment:Desirable LDL: less than 100 mg/dLNear Optimal/Above Optimal LDL: 110- 129 mg/dLBorderline High LDL: 130-159 mg/dLHigh LDL: 160-189 mg/dLVery High LDL: greater than or equal to 190 mg/dL HDL Cholesterol 34(L) >40 mg/dL [facility] Comment:Desirable HDL: great er than 40 mg/dL Note: This HDL assay may give artificially low results in patients with liver disease. Blood Venous blood specimen / Unknown 08/08/2024 2:44 PM EDT 08/08/2024 2:44 PM EDT us Piedad Little MD LAB BLOOD ORDERABLES Final Result Performing Organization Address [facility] Co de Phone Number [facility] [address] [place] [phone] * Hepatitis C Ab (12/21/2023 4:14 PM EDT) Hepatitis C Antibody Nonreactive Nonreactive [facility] Comment:Antibodies to HCV no t detected; does not exclude early acuteHCV infection. 12/21/2023 4:14 PM EDT 12/21/2023 4:14 PM EDT us Generic External Data Provider LAB BLOOD ORDERAB LES Final Result Performing Organization Address [facility] Co de Phone Number [facility] [address] [place] [phone] * HIV-1/2 Antigen and Antibodies, Fourth Generation, with Reflexes (12/21/2023 4:14 PM EDT) HIV AB/AG Nonreactive Nonreactive [facility] Comment:HIV-1 p24 Ag and/or HIV-1/HIV-2 Ab not detected.A test result that is nonreactive does not exclude thepossibility of exposure to or infection with HIV-1 and/orHIV-2. Nonreactive results in this assay for individualswith prior exposure to HIV-1 and/or HIV-2 may be due toantigen and antibody levels that are below the limit ofdetection of this assay.The ENEFpro Alinity HIV Ag/Ab Combo assay result andsupplemental assay results should be interpreted inconjunction with the patient's clinical presentation,history and other laboratory results. If the results areinconsistent with clinical evidence, additional testing issuggested to confirm the result. 12/21/2023 4:14 PM EDT 12/21/2023 4:14 PM EDT us Generic External Data Provider LAB BLOOD ORDERAB LES Final Result Performing Organization Address [facility] Co de Phone Number [facility] [address] [place] [phone] * ALBUMIN, RANDOM URINE W/CREATININE (12/19/2020 [...] URINE ORDERABLES Final Result Performing Organization Address City/[facility]/ZIP Co de Phone Number [facility] [address] from Last 3 Months or Most [...] 09/20/2025 Patient has chronic kidney disease 09/28/2025 Insurance [facility] < 66 [facility] Care Teams Executive Staff Assistant Relationship Specialty Start Date End Date Piedad Pacheco MD [address] [place] [address] PCP - General Family Medicine 10/26/20
--- OUTSIDE RECORDS SUMMARY | 2025-10-02 11:12 | XMS_ITS | Clinical Summary ---
Author Organization [facility] Address [address] [place] [address] Care Team Providers Care Disability Specialist Name Role Phone Unknown Primary Care Provider [phone] Allergies No known active allergies Medications oxyCODONE-aceta [...] Influenza Vaccine 05/12/2025 COVID-19 Vaccine (1 - 2025-2 6 season) 2025 Hepatitis B Vaccines Aged Out No long er eligible based on patient's age to complete this topic Insurance MEDICAID OUT OF STATE [facility] [place] [address] MEDICARE OUT OF NETWORK Care Teams Disability Specialist Relationship Specialty Start Date End Date Unknown Unknow Provider Address PCP - General 05/15/17
--- OUTSIDE RECORDS SUMMARY | 2025-10-02 11:12 | XMS_ITS | Encounter Summary ---
Author Organization [employer] Address 75 [facility] 7t [place] [address] Care Team Providers Care Investigator Cash Shortage Name Role Phone Piedad Pacheco MD Primary Care Provide r Encounter Details Date Type Department Care Team (Late st Contact Info) Description 05/22/2025 Orders Only [facility] MEDICINE [address] [place], [place] [phone] Piedad Pacheco MD 230 [place] [address] Hemiparesis affecting right side as late effect [...] Description 10/24/2025 9:15 AM EST Office Visit [facility] [address] [place] [phone] Piedad Pacheco MD [address] [place] [address] 12/08/2025 1:30 PM EST Telemedicine [facility] [address] [place] [address] Francy Melara, SLADE documented as of this encounter Visit Diagnoses Diagnosis Hemiparesis affecting right side as late effect of cerebrovascular accident (CMS/HCC) (HCC)- Primary documented in this encounter Additional Health Concerns Assessment Noted Time PHQ-9 Depression Total Score: 0 10/19/19 25 10:23 AM EST documented as of this encounter Care Teams Investigator Cash Shortage Relationship Specialty Start Date End Date Piedad Pacheco MD [address] [place] [address] PCP - General Family Medicine 10/26/20 documented as of this encounter
--- OUTSIDE RECORDS SUMMARY | 2025-10-02 11:12 | XMS_ITS | Encounter Summary ---
Author Organization [employer] Address 75 [facility] 7t [place] [address] Care Team Providers Care Weft Straightener Name Role Phone Piedad Pacheco MD Primary Care Provide r Reason for Visit * Reason Onset Date Comments Med Refill 01/29/2024 Encounter Details Date Type Department Care Team ([facility] Contact Info) Description 01/29/2024 Telephone [facility] 230 [place], [place] [phone] Piedad Pacheco MD 230 [place] [address] Med Refill Social History Tobacco Use Types [...] 10 MG tablet To be sent to: [facility] [address] [place] [address] documented in this encounter Plan of Treatment Upcoming Encounters Date Type Department Care Team (Late st Contact Info) Description 10/24/2025 9:15 AM EST Office Visit [facility] [address] [place] [phone] Piedad Pacheco MD [address] [place] [address] 12/08/2025 1:30 PM EST Telemedicine [facility] [address] [place] [phone] Francy Melara RN documented as of this encounter Visit Diagnoses Not on filedocumented in this encounter Additional Health Concerns Assessment Noted Time PHQ-9 Depression Total Score: 0 07/14/20 23 11:16 AM EDT documented as of this encounter Care Teams Weft Straightener Relationship Specialty Start Date End Date Piedad Pahceco MD [address] [place] [address] PCP - General Family Medicine 10/26/20 documented as of this encounter
--- OUTSIDE RECORDS SUMMARY | 2025-10-02 11:12 | XMS_ITS | Encounter Summary ---
Author Organization [employer] Address 75 [facility] 7t [place] [address] Care Team Providers Care Universal Grinder Set Up Operator Name Role Phone Piedad Pacheco MD Primary Care Provide r Reason for Visit * Reason Comments Med Refill Encounter Details Date Type Department Care Team ([facility] st Contact Info) Description 08/27/2023 Refill [facility] 230 [place], [place] [phone] Piedad Pacheco MD 230 [place] [address] Restless leg syndrome Social History Tobacco Use [...] Description 10/24/2025 9:15 AM EST Office Visit [address] [address] Piedad Pacheco MD [address] [place] [address] 12/08/2025 1:30 PM EST Telemedicine [address] [address] Francy Melara RN documented as of this encounter Visit Diagnoses Diagnosis Restless leg syndrome Restless legs syndrome (RLS) documented in this encounter Additional Health Concerns Assessment Noted Time PHQ-9 Depression Total Score: 0 07/14/20 23 11:16 AM EDT documented as of this encounter Care Teams Universal Grinder Set Up Operator Relationship Specialty Start Date End Date Piedad Pacheco MD [address] [place] [phone] PCP - General Family Medicine 10/26/20 documented as of this encounter
--- OUTSIDE RECORDS SUMMARY | 2025-10-02 11:12 | XMS_ITS | Encounter Summary ---
Author Organization [employer] Address 75 [facility] 7t [place] [address] Care Team Providers Care Mechanical Car Checker Name Role Phone Piedad Pacheco MD Primary Care Provide r Reason for Visit * Reason Onset Date Comments Med Refill 12/09/2023 Encounter Details Date Type Department Care Team ([facility] Contact Info) Description 12/09/2023 Telephone [facility] MEDICINE 230 [place], [place] [phone] Piedad Pacheco MD 230 [place] [address] Med Refill Social History Tobacco Use Types [...] 10 MG tablet To be sent to: [facility] [address] [place] [address] documented in this encounter Plan of Treatment Upcoming Encounters Date Type Department Care Team (Late st Contact Info) Description 10/24/2025 9:15 AM EST Office Visit [facility] MED[facility]INE [address] [place] [address] [phone] Piedad Pacheco MD [address] [place] [address] [phone] 12/08/2025 1:30 PM EST Telemedicine [facility] [address] [place] [address] [phone] Francy Melara RN documented as of this encounter Visit Diagnoses Not on filedocumented in this encounter Additional Health Concerns Assessment Noted Time PHQ-9 Depression Total Score: 0 07/14/20 23 11:16 AM EDT documented as of this encounter Care Teams Mechanical Car Checker Relationship Specialty Start Date End Date Piedad Pacheco MD 230 [place] [address] PCP - General Family Medicine 10/26/20 documented as of this encounter
--- OUTSIDE RECORDS SUMMARY | 2025-10-02 11:12 | XMS_ITS | Encounter Summary ---
Author Organization [employer] Address 75 [facility] 7t [place] [address] Care Team Providers Care Central Office Technician Name Role Phone Piedad Pacheco MD Primary Care Provide r Reason for Visit * Reason Onset Date Comments Med Refill 09/28/2025 Encounter Details Date Type Department Care Team ([facility] Contact Info) Description 09/28/2025 Telephone [facility] MEDICINE 230 [place] [address] Piedad Pacheco MD 230 [place] [address] Med Refill Social History Tobacco Use Types [...] Telephone Encounter - Jen Cortez LPN - 09/28/2025 10:58 AM EST Medication was sent to [facility] on 08/25/25 #30 with 1 refill. * Telephone Encounter - Collin Briggs - 09/28/2025 10:56 AM EST TC from pt requesting medication refill. Medications needing refill : zolpidem (Ambien) 10 MG tablet To be sent to: [facility] [address] [place] [address] documented in this encounter Plan of Treatment Upcoming Encounters Date Type Department Care Team (Late st Contact Info) Description 10/24/2025 9:15 AM EST Office Visit [facility] MED[facility]INE [address] [place] [address] [phone] Piedad Pacheco MD [address] [place] [address] 12/08/2025 1:30 PM EST Telemedicine [facility] [address] [place] [address] Francy Melara, RN documented as of this encounter Goals Goal [...] Patient has chronic kidney disease No Colon Ravindra, Emma Patient has chronic kidney disease Care Plan Patient has chronic kidney disease No Poonam Mora RN Patient has chronic kidney disease Care Plan Patient has chronic kidney disease No Collin Briggs documented as of this encounter Visit Diagnoses [...] documented as of this encounter Care Teams Central Office Technician Relationship Specialty Start Date End Date Piedad Pacheco MD [address] [place] [address] PCP - General Family Medicine 10/26/20 documented as of this encounter
--- OUTSIDE RECORDS SUMMARY | 2025-10-02 11:12 | XMS_ITS | Encounter Summary ---
Author Organization [employer] Address 75 [facility] 7t [place] [address] Care Team Providers Care Sports Psychologist Name Role Phone Piedad Pacheco MD Primary Care Provide r Encounter Details Date Type Department Care Team ([facility] st Contact Info) Description 02/12/2024 Telephone [facility] MEDICINE 230 [place], [place] [phone] Piedad Pacheco MD 230 [place], [place] [phone] Social History Tobacco Use Types Packs/Day Years [...] Description 10/24/2025 9:15 AM EST Office Visit [facility]INE [address] [place] [address] Piedad Pacheco MD [address] [place] [address] 12/08/2025 1:30 PM EST Telemedicine [address] [address] Francy Melara RN documented as of this encounter Visit Diagnoses Not on filedocumented in this encounter Additional Health Concerns Assessment Noted Time PHQ-9 Depression Total Score: 0 07/14/20 23 11:16 AM EDT documented as of this encounter Care Teams Sports Psychologist Relationship Specialty Start Date End Date Piedad Pacheco MD [address] [place] [address] PCP - General Family Medicine 10/26/20 documented as of this encounter
--- OUTSIDE RECORDS SUMMARY | 2025-10-02 11:12 | XMS_ITS | Encounter Summary ---
Author Organization [employer] Address 75 [facility] 7t [place] [address] Care Team Providers Care Lidar Scientist Name Role Phone Piedad Pacheco MD Primary Care Provide r Reason for Visit * Reason Onset Date Comments Med Refill 08/17/2025 Encounter Details Date Type Department Care Team ([facility] Contact Info) Description 08/17/2025 Telephone [facility] MEDICINE 230 [place] [address] Piedad Pacheco MD 230 [place] [address] Med Refill Social History Tobacco Use Types [...] Cortez LPN - 08/17/2025 2:27 PM EST SLATE WORKER checked on 08/17/25. Ambien last sold on 07/27/25 #30. Metformin was sent on 03/27/25 90 day supply with 2 refills. * Telephone Encounter - Chris Briggs - 08/17/2025 2:23 PM EST TC from pt requesting medication refill. Medications needing refill: metFORMIN (Glucophage) 500 MG tablet zolpidem (Ambien) 10 MG tablet To be sent to: [facility] [address] [place] [address] documented in this encounter Plan of Treatment Upcoming Encounters Date Type Department Care Team (Late st Contact Info) Description 10/24/2025 9:15 AM EST Office Visit [facility]INE [address] [place] [phone] Piedad Pacheco MD 230 [place] [address] 12/08/2025 1:30 PM EST Telemedicine [facility] MEDICINE [address] [place] [address] Francy Melara RN documented as of this encounter Visit Diagnoses Not on filedocumented in this encounter Additional Health Concerns Assessment Noted Time PHQ-9 Depression Total Score: 0 10/19/19 25 10:23 AM EST documented as of this encounter Care Teams Lidar Scientist Relationship Specialty Start Date End Date Piedad Pacheco MD [address] [place] [address] PCP - General Family Medicine 10/26/20 documented as of this encounter
--- OUTSIDE RECORDS SUMMARY | 2025-10-02 11:12 | XMS_ITS | Clinical Summary ---
Author Organization [employer] [facility] Prior to 03/11/25 Address [address] [place] [address] Care Team Providers Care Pumper Gager Apprentice Name Role Phone Piedad Pacheco MD Primary [...] of 2) 2011 Influenza Vaccine (#1) 2025 , 08/29/2019, 07/23/2017, Additional history exists Pneumococcal Vaccine [...] Advance Directives For more information, please contact: [phone] Latest Code Status on File Code Status Date Activated Date Inactivated Comments Full Code 03/22/2024 2:04 AM 03/26/2024 1:02 AM This code status was ascertained in the following way: discussion with patient . Care Teams Pumper Gager Apprentice Relationship Specialty Start Date End Date Piedad Pacheco MD [address] [place] [phone] PCP - General Internal Medicine 03/21/24
--- OUTSIDE RECORDS SUMMARY | 2025-10-02 11:12 | XMS_ITS | Encounter Summary ---
Author Organization [employer] Address 75 [facility] 7t [place] [address] Care Team Providers Care Sales Department Clerk Name Role Phone Piedad Pacheco MD Primary Care Provide r Reason for Visit * Reason Onset Date Comments Nurse Triage 12/02/2023 Encounter Details Date Type Department Care Team ([facility] Contact Info) Description 12/02/2023 Telephone [facility] MEDICINE 230 [place], [place] [phone] Piedad Pacheco MD 230 [place] [address] Nurse Triage Social History Tobacco Use Types [...] referral to specialist regarding hospital visit at [facility] 10/19/23 . Pt was seen there sent home and then returned to [facility] and was admitted and sent to long-term in [place] for rehab. Unclear as to dates, no information is on the chart. Pt did have UTI and pulido catheter and unclear if this was resolved. Pt was told to geta referral to specialist ? as to whether this is regarding back pain or UTI. Advised Pt has an apt with PCP 12/16/23 and can come to [facility] today open till 8pm for any acute problem. Pt reports will wait to see PCP. Advised will send this information to nursing team. Pt agrees and reports that PCP knows all information regarding this situation. Pt does have new insurance [employer] ID # is [id number] Protocol Used: Information Only Call - No [...] Description 10/24/2025 9:15 AM EST Office Visit [facility] MEDICINE [address] [place] [address] Piedad Pacheco MD [address] [place] [address] 12/08/2025 1:30 PM EST Telemedicine [address] [address] Francy Melara RN documented as of this encounter Visit Diagnoses Not on filedocumented in this encounter Additional Health Concerns Assessment Noted Time PHQ-9 Depression Total Score: 0 07/14/20 23 11:16 AM EDT documented as of this encounter Care Teams Sales Department Clerk Relationship Specialty Start Date End Date Piedad Pacheco MD [address] [place] [address] PCP - General Family Medicine 10/26/20 documented as of this encounter
--- OUTSIDE RECORDS SUMMARY | 2025-10-02 11:13 | XMS_ITS | Encounter Summary ---
Author Organization [employer] Address 75 [facility] 7t [place] [address] Care Team Providers Care Car Unloader Helper Name Role Phone Piedad Pacheco MD Primary Care Provide r Reason for Visit * Reason Onset Date Comments PT1 12/12/2024 Encounter Details Date Type Department Care Team ([facility] Contact Info) Description 12/12/2024 Telephone [facility] MEDICINE 230 [place], [place] [phone] Piedad Pacheco MD [address] [place] [address] PT1 Social History Tobacco Use Types Packs/Day [...] Description 10/24/2025 9:15 AM EST Office Visit [facility] MEDICINE [address] [place] [phone] Piedad Pacheco MD 230 [place] [address] 12/08/2025 1:30 PM EST Telemedicine [facility] MEDICINE [address] [place] [address] [phone] Francy Melara, RN documented as of this encounter Visit Diagnoses Not on filedocumented in this encounter Additional Health Concerns Assessment Noted Time PHQ-9 Depression Total Score: 0 10/19/19 25 10:23 AM EST documented as of this encounter Care Teams Car Unloader Helper Relationship Specialty Start Date End Date Piedad Pacheco MD [address] [place] [address] PCP - General Family Medicine 10/26/20 documented as of this encounter
--- OUTSIDE RECORDS SUMMARY | 2025-10-02 11:13 | XMS_ITS | Encounter Summary ---
Author Organization [employer] Address 75 [facility] 7t [place] [address] Care Team Providers Care Reconcilement Clerk Name Role Phone Piedad Pacheco MD Primary Care Provide r Reason for Visit * Reason Comments Med Refill Encounter Details Date Type Department Care Team ([facility] st Contact Info) Description 09/11/2023 Refill [facility] MEDICINE 230 [place], [place] [phone] Piedad Pacheco MD 230 [place] [address] Restless leg syndrome Social History Tobacco Use [...] status on message below. Contact pt at [phone] documented in this encounter Plan of Treatment Upcoming Encounters Date Type Department Care Team (Late st Contact Info) Description 10/24/2025 9:15 AM EST Office Visit [facility] MEDICINE [address] [place] [address] Piedad Pacheco MD [address] [place] [address] 12/08/2025 1:30 PM EST Telemedicine [facility] MEDICINE [address] [place] [address] Francy Melara RN documented as of this encounter Visit Diagnoses Diagnosis Restless leg syndrome Restless legs syndrome (RLS) documented in this encounter Additional Health Concerns Assessment Noted Time PHQ-9 Depression Total Score: 0 07/14/20 23 11:16 AM EDT documented as of this encounter Care Teams Reconcilement Clerk Relationship Specialty Start Date End Date Piedad Pacheco MD [address] [place] [address] PCP - General Family Medicine 10/26/20 documented as of this encounter
--- OUTSIDE RECORDS SUMMARY | 2025-10-02 11:13 | XMS_ITS | Encounter Summary ---
Author Organization [employer] Address 75 [facility] 7t [place] [address] Care Team Providers Care Risk Management Consultant Name Role Phone Piedad Pacheco MD Primary Care Provide r Reason for Visit * Reason Comments Med Refill Encounter Details Date Type Department Care Team ([facility] st Contact Info) Description 09/01/2023 Refill [facility] MEDICINE 230 [place], [place] [phone] Piedad Pacheco MD 230 [place] [address] Restless leg syndrome Social History Tobacco Use [...] Description 10/24/2025 9:15 AM EST Office Visit [address] [address] Piedad Pacheco MD [address] [place] [address] 12/08/2025 1:30 PM EST Telemedicine [address] [address] Francy Melara RN documented as of this encounter Visit Diagnoses Diagnosis Restless leg syndrome Restless legs syndrome (RLS) documented in this encounter Additional Health Concerns Assessment Noted Time PHQ-9 Depression Total Score: 0 07/14/20 23 11:16 AM EDT documented as of this encounter Care Teams Risk Management Consultant Relationship Specialty Start Date End Date Piedad Pacheco MD [address] [place] [address] PCP - General Family Medicine 10/26/20 documented as of this encounter
[2025-10-02 11:16] LABS: Anion Gap 12 (12-20); Blood Urea Nitrogen 19 mg/dL (9-16); Calcium 9.1 mg/dL (8.4-10.2); Carbon Dioxide 21 mmol/L (22-29); Chloride 109 mmol/L (96-108); Estimated Glomerular Filt Rate > 60; Potassium 4.0 mmol/L (3.3-5.1); Sodium 138 mmol/L (135-145)
== END 2025-10-02 09:42 | disposition home or self-care (01) ==
LOC: HO.LAB 09:41
PROVIDERS: PCP Internal Medicine; Visit Provider Nurse Practitioner Family
DX: I25.10 Atherosclerotic heart disease of native coronary artery without angina pectoris (principal); I42.9 Cardiomyopathy, unspecified; I63.9 Cerebral infarction, unspecified
CPT/HCPCS: 36415; 80048; 85025; 85610